=== PATIENT | male | born 1970 | race Caucasian/White ===

== ENCOUNTER → 2022-03-18 14:08 | Outpatient (BNVA) | payer MEDICARE, MEDICAID, SELFPAY | PROVIDERS: PCP Internal Medicine; Visit Provider Internal Medicine | DX: I42.8 Other cardiomyopathies (principal); I25.10 Atherosclerotic heart disease of native coronary artery without angina pectoris; I46.9 Cardiac arrest, cause unspecified | CPT/HCPCS: 99212 ==

== ENCOUNTER → 2022-03-28 10:06 | Outpatient (REF) | payer MEDICARE, MEDICAID, SELFPAY ==
--- NOTE | 2022-03-28 10:12 | CA_ITS ---
Transthoracic Echocardiogram Patient (Last, First, Middle): Daniel Agarwal A Gender: Male Date of : 1970 Age: 51 Procedure Date: 03/28/2022 Procedure Type: Transthoracic Echocardiogram Location: OP Height: 187.96 cm Weight: 99.34 kg BSA: 2.26 m2 Heart Rate: bpm BP: 110 / 72 mmHg Lead Bi Developer: TO Referring MD: Gunnar Tate MD Symptoms: I42.8 - Other cardiomyopathies Study Quality: Fair ECG Rhythm: Sinus Conclusions: - The left ventricular systolic function is moderately decreased. The visually estimated ejection fraction is between 35-40%. - No obvious valvular pathology seen on this study. Findings Left Ventricle Mildly increased left ventricular cavity size. There is normal left ventricular wall thickness. The left ventricular systolic function is moderately decreased. The visually estimated ejection fraction is between 35 40%. There is moderate global hypokinesis. Diastolic function is normal for age. Right Ventricle Normal right ventricular cavity size and systolic function. There is an ICD wire seen in the right ventricle. Atria Both atria are normal in size. Aortic Valve There is a normal trileaflet aortic valve. There is mild calcification of the aortic valve. There is no aortic valve stenosis. There is trace (trivial) aortic valve regurgitation. Mitral Valve The mitral valve appears normal. There is trace mitral valve regurgitation. There is no mitral valve stenosis. Pulmonic Valve The pulmonic valve is likely normal. Tricuspid Valve There is trace tricuspid valve regurgitation. There is no evidence of pulmonary hypertension. Great Vessels The asc aorta is normal in size. Venous The inferior vena cava is mildly dilated and collapses greater than 50% with inspiration. Pericardium/Pleural There is no evidence of pericardial effusion. Prior Study Comparison No significant change compared to prior study dated: 08/12/2019. Recommendations, Care & Conclusions No obvious valvular pathology seen on this study. Measurements 2D Linear Measurements IVSd: 0.66 0.6-0.9/0.6-1.0 cm LVIDd: 6.05 3.9-5.3/4.2-5.9 cm LVIDd Index: 2.68 2.4-3.2/2.2-3.1 cm/m2 LVIDs: 5.03 2.0-3.6 cm LVPWd: 0.63 0.7-1.1 cm LA Diam: 3.50 2.7-3.8/3.0-4.0 cm LAIDs Index: 1.55 1.5-2.3 cm/m2 LV Mass: 180.46 67-162/88-224 g LV Mass Index: 79.85 43-95/49-115 g/m2 LVOT Diam: 2.20 3.0+(-)1.3 cm 2D Systolic Function EF 4C: 44.00 >55% EF 2C: 35.60 >55% EF BiP: 39.90 >55% Mitral Valve MV Pk E: 0.57 MV PK A: 0.67 MV Decel Time: 192.00 E/A: 0.90 E'Lateral: 8.49 E'Medial: 6.64 E/E' Med: 8.60 E/E' Lat: 6.80 PHT: 56.00 MVA PHT: 3.93 Decel [place]: 3.00 Aortic Valve AoV Pk Prabhakar: 1.38 AoV Mn Prabhakar: 0.98 AoV VTI: 0.28 AoV Pk Grad: 8.00 Aov Mn Grad: 4.00 SERGEI Cont.VTI: 1.93 LVOT LVOT Pk Prabhakar: 0.71 LVOT Mn Prabhakar: 0.51 LVOT VTI: 0.14 LVOT Pk Grad: 2.00 LVOT Mn Grad: 1.00 LVOT Diam: 2.20 LVOT Area: 3.80 Diastolic Function MV Pk E: 0.57 MV Pk A: 0.67 E/A: 0.90 E'Medial: 6.64 E/E' Med: 8.60 E' Laterial: 8.49 E/E' Lat: 6.80 Right Ventricle TAPSE (mm): 18.40 TVS' Prabhakar: 9.36 Tricuspid Valve TR Pk Prabhakar: 2.08 TR Pk Grad: 17.00 RA Press: 8.00 RVSP: 25.00 Great Vessels Aorta Sinus of Valsalva: 3.29 2.0-3.5 cm Ao Asc: 3.10 2.1-3.4 cm Updated in Other Vendor System with Status of Final Gunnar Tate MD electronically signed on 03/29/2022 3:06:59 PM with status of Final
[2022-03-28 11:03] LABS: MANUAL DIFF FLAG NO
[2022-03-28 11:54] LABS: Basophils Absolute Auto 0.1 X10*3/uL (0.0-0.2); Basophils Percent Auto 0.3 % (0-2); Eosinophils Absolute Auto 0.1 X10*3/uL (0.0-0.4); Eosinophils Percent Auto 0.7 % (0-4); Hematocrit 44.9 % (42.0-52.0); Hemoglobin 15.2 g/dl (14.0-18.0); Imm Gran Abs Auto 0.08 X10*3/uL (0.00-0.03); Imm Gran Pct Auto 0.5 % (0.0-0.4); Lymphocytes Absolute Auto 2.5 X10*3/uL (1.2-4.9); Lymphocytes Percent Auto 14.3 % (20-40); Mean Corpuscular HGB Conc 33.9 g/dl (31.0-36.0); Mean Corpuscular Hemoglobin 31.3 pg (27.0-33.0); Mean Corpuscular Volume 92.4 fL (80.0-98.0); Monocytes Absolute Auto 0.9 X10*3/uL (0.1-1.2); Monocytes Percent Auto 5.1 % (2-11); Neutrophils Percent Auto 79.1 % (45-73); Platelet Count 190 X10*3/uL (160-400); Red Blood Count 4.86 X10*6/uL (4.60-5.80); Red Cell Distribution Width 12.5 % (11.0-16.0); White Blood Count 17.7 X10*3/uL (4.8-10.8)
[2022-03-28 12:43] LABS: B Type Natriuretic Peptide 24 pg/mL (<100)
[2022-03-28 12:51] LABS: Alanine Aminotransferase 18 U/L (0-40); Albumin Level 3.9 g/dL (3.5-5.0); Alkaline Phosphatase 57 U/L (39-117); Anion Gap 12 (12-20); Aspartate Amino Transferase 13 U/L (5-37); Bilirubin Direct 0.2 mg/dL (0.0-0.5); Blood Urea Nitrogen 21 mg/dL (9-16); Calcium 9.1 mg/dL (8.4-10.2); Carbon Dioxide 27 mmol/L (22-29); Chloride 106 mmol/L (96-108); Cholesterol 257 mg/dL; Estimated Glomerular Filt Rate > 60; Glucose Random 88 mg/dL (60-115); HDL Cholesterol 32 mg/dL; LDL Cholesterol Calculated 188 mg/dl; Potassium 3.8 mmol/L (3.3-5.1); Sodium 141 mmol/L (135-145); Total Protein 6.4 g/dL (6.5-8.0); Triglycerides 186 mg/dL
[2022-03-28 13:10] LABS: Prostate Specific Antigen 0.67 ng/mL (<0.05-4.0); TSH reflex Free T4 0.66 uIU/mL (0.32-4.0)
[2022-03-28 13:32] LABS: Folate 7.8 ng/mL (> or = 4.0); Vitamin B12 667 pg/mL (200-900)
== END ==
LOC: HO.CARD 10:06
PROVIDERS: Nurse Practitioner Family; Visit Provider Internal Medicine
DX: Z12.5 Encounter for screening for malignant neoplasm of prostate (principal); I42.8 Other cardiomyopathies; I25.10 Atherosclerotic heart disease of native coronary artery without angina pectoris; J44.9 Chronic obstructive pulmonary disease, unspecified; E78.5 Hyperlipidemia, unspecified; E55.9 Vitamin D deficiency, unspecified
CPT/HCPCS: 36415; 80048; 80061; 80076; 82306; 82607; 82746; 83880; 84153; 84443; 85025; 93306

== ENCOUNTER 2022-04-01 13:59 | Outpatient (REF) | payer MEDICARE, MEDICAID, SELFPAY ==
--- NOTE | ~2022-04-01 | XR_ITS ---
EXAMINATION: XR SHOULDER, RIGHT CLINICAL INFORMATION: Pain. COMPARISON: Radiographs dated 11/06/2011. TECHNIQUE: AP external rotation, Grashey, scapular Y, and axillary views of the right shoulder. FINDINGS: Bony alignment and mineralization are normal. The glenohumeral joint is intact and shows mild osteoarthritic change. The acromioclavicular and coracoclavicular intervals are normal. There is mild osteoarthritic change of the acromioclavicular joint. There is a small distal acromial undersurface osteophyte. There is cortical irregularity and subchondral sclerosis and cyst formation of the greater tuberosity of the proximal right humerus. No fracture or dislocation is seen. There is no abnormal soft tissue calcification or foreign body. No left pneumothorax is seen. A pacemaker lead is noted. XR/XR shoulder RT min 2V IMPRESSION: 1. There is mild osteoarthritic change of the right glenohumeral and acromioclavicular joints. 2. Findings are consistent with right rotator cuff impingement. No cristina calcific tendinitis is noted.
== END 2022-04-01 14:00 | disposition home or self-care (01) ==
LOC: HO.HOSX 13:59
PROVIDERS: Visit Provider Orthopaedic Surgery
DX: M25.511 Pain in right shoulder (principal); Z98.890 Other specified postprocedural states
CPT/HCPCS: 73030; 99202

== ENCOUNTER 2022-04-08 09:38 | Outpatient (REF) | payer MEDICARE, MEDICAID, SELFPAY ==
--- NOTE | ~2022-04-08 | XR_ITS ---
EXAMINATION: XR CHEST CLINICAL INFORMATION: COPD COMPARISON: CTA chest for PE 09/21/2018 TECHNIQUE: 2 views of the chest were obtained. FINDINGS: The lungs are hyperinflated but clear. Heart size and pulmonary vascularity is normal. There is solitary pacer electrode in right ventricle. No gross bony abnormality seen. XR/XR chest 2V IMPRESSION: Hyperinflated lungs without acute process.
== END 2022-04-08 09:39 | disposition home or self-care (01) ==
LOC: HO.XRAY 09:38
PROVIDERS: PCP Nurse Practitioner Family; Visit Provider Internal Medicine
DX: J44.1 Chronic obstructive pulmonary disease with (acute) exacerbation (principal); F17.200 Nicotine dependence, unspecified, uncomplicated; Z71.6 Tobacco abuse counseling
CPT/HCPCS: 71046; 99212

== ENCOUNTER 2022-04-10 10:12 | Outpatient (REF) | payer MEDICARE, MEDICAID, SELFPAY ==
--- NOTE | ~2022-04-10 | CT_ITS ---
EXAMINATION: CT HEAD WITHOUT CONTRAST CLINICAL INFORMATION: Skin anesthesia. COMPARISON: None available. TECHNIQUE: Contiguous axial imaging was performed from the skull base to vertex without intravenous administration of contrast. This CT examination was performed using dose optimization techniques as appropriate, variously including the following: *Automated exposure control. *Adjustment of mA and/or kV according to patient size (this includes techniques or standardized protocols for targeted exams where dose is matched to indication/reason for exam; i.e. extremities or head). *Use of iterative reconstruction technique. DLP: 811 mGy-cm FINDINGS: There is no evidence of acute intracranial hemorrhage or edematous territorial infarction. Kim-white matter differentiation is preserved. A few nonspecific foci of hypoattenuation in the periventricular and deep white matter. The ventricles are normal in morphology and size. No evidence for obstructive hydrocephalus. No abnormal mass effect or midline shift. No extra-axial fluid collections. Calcific atherosclerotic disease of the intracranial internal carotid arteries. No hyperdense vessel sign. No acute soft tissue or osseous abnormalities. Moderate mucosal thickening of the paranasal sinuses. Partially aerated fluid layering within the maxillary sinuses. The mastoid air cells and middle ear cavities are clear. CT/CT head/brain wo IV con IMPRESSION: 1. No evidence of acute intracranial hemorrhage or edematous territorial infarction. 2. Mild nonspecific white matter changes most commonly seen with mild microangiopathy. 3. Moderate sinonasal mucosal disease. Partially aerated fluid layering within the maxillary sinuses.
== END 2022-04-10 10:13 | disposition home or self-care (01) ==
LOC: HO.CT 10:12
PROVIDERS: PCP Nurse Practitioner Family; Visit Provider Nurse Practitioner Family
DX: R20.0 Anesthesia of skin (principal)
CPT/HCPCS: 70450

== ENCOUNTER 2022-04-25 10:39 | Outpatient (REF) | payer MEDICARE, MEDICAID, SELFPAY ==
--- NOTE | ~2022-04-25 | MR_ITS ---
EXAMINATION: MR SHOULDER WITHOUT CONTRAST, RIGHT CLINICAL INFORMATION: Right shoulder pain. History of rotator cuff repair COMPARISON: Radiographs 04/01/2022. MRI 04/30/2013. TECHNIQUE: MRI of the shoulder without contrast was performed on a high-field scanner. FINDINGS: ROTATOR CUFF: The surgically repaired supraspinatus tendon is markedly attenuated anteriorly, portions of which appear essentially absent, with foci of micrometallic artifact. Correlate with the surgical result. The rotator cuff appears otherwise intact. Mild supraspinatus muscle atrophy. BICEPS: Normal. CORACOACROMIAL ARCH: The undersurface of the acromion is post acromioplasty with no subacromial spur. Postsurgical and moderate degenerative changes at the acromioclavicular joint. LABRUM/CAPSULE: Normal. GLENOHUMERAL JOINT/MARROW: Degenerative cyst and spurring of the lesser tuberosity. Chronic cortical irregularity of the greater tuberosity anteriorly and small osteophytes along the glenoid rim. No significant joint effusion. MR/MR shoulder RT wo con IMPRESSION: 1. The surgically repaired supraspinatus tendon is markedly attenuated anteriorly, portions of which appear essentially absent, with foci of micrometallic artifact. Correlate with the surgical result. Mild muscle atrophy. The rotator cuff appears otherwise intact. 2. Moderate acromioclavicular and mild glenohumeral osteoarthritis.
== END 2022-04-25 10:40 | disposition home or self-care (01) ==
LOC: HO.MRI 10:39
PROVIDERS: Visit Provider Orthopaedic Surgery
DX: M25.511 Pain in right shoulder (principal); J44.9 Chronic obstructive pulmonary disease, unspecified; F17.200 Nicotine dependence, unspecified, uncomplicated; Z71.6 Tobacco abuse counseling
CPT/HCPCS: 73221; 99212

== ENCOUNTER → 2022-04-29 09:47 | Outpatient (BNVA) | payer MEDICARE, MEDICAID, SELFPAY | PROVIDERS: PCP Nurse Practitioner Family; Visit Provider Internal Medicine | DX: G89.29 Other chronic pain (principal); M96.1 Postlaminectomy syndrome, not elsewhere classified; F11.20 Opioid dependence, uncomplicated | CPT/HCPCS: 99202 ==

== ENCOUNTER 2022-05-13 10:04 | Outpatient (REF) | payer MEDICARE, MEDICAID, SELFPAY ==
--- NOTE | ~2022-05-13 | XR_ITS ---
EXAMINATION: XR CERVICAL SPINE XR THORACIC SPINE XR LUMBAR SPINE CLINICAL INFORMATION: Post laminectomy syndrome. COMPARISON: None available. TECHNIQUE: Cervical spine 4 views. Dorsal spine 2 views. Lumbar spine 5 views. FINDINGS: CERVICAL SPINE: There is normal cervical lordosis. There is a ventral plate and screws for fusion of C4 and C5 vertebrae and C5, C6 and C7 vertebrae. In addition, there are cerclage wires for posterior stabilization involving the C1 and C2 spinous processes. There is mild loss of the C2-C3 and C3-C4 disc heights with mild ventral spondylosis. No visible acute fracture, dislocation or subluxation is seen. The prevertebral and paravertebral soft tissues are normal. DORSAL SPINE: There is normal thoracic kyphosis. The vertebral heights, alignment and disc heights are normal. No fracture, lytic or sclerotic process is seen. The paravertebral soft tissues are normal. LUMBAR SPINE: There is maintained lumbar lordosis with disc prostheses at the L5-S1 and L3-L4 disc levels. In addition, there is posterior hardware for stabilization of the L3 and L4 vertebrae which appears unremarkable. Mild loss of the T12-L1, L1-L2 disc height. Mild ventral spondylosis is seen. There is no fracture or lytic process seen. There is a grade 1 anterolisthesis at L4-L5 stabilized with posterior bony bilateral fusion. Hyperdense L4-L5 disc is noted. XR/XR cervical spine 3V IMPRESSION: Ventral fusion from C4 through C7 vertebrae with ventral plating and screws. There are posterior cerclage wires stabilizing the C1 and C2 spinous processes. The hardware is intact. No fracture or lytic process is seen. There is ventral spondylosis. Unremarkable dorsal spine exam. L3-L4, L5-S1 disc prostheses and the L3-L4 posterior hardware is stable. Degenerative disc changes at the T12-L1 and L1-L2 disc levels with ventral spondylosis.
--- NOTE | ~2022-05-13 | XR_ITS ---
EXAMINATION: XR CERVICAL SPINE XR THORACIC SPINE XR LUMBAR SPINE CLINICAL INFORMATION: Post laminectomy syndrome. COMPARISON: None available. TECHNIQUE: Cervical spine 4 views. Dorsal spine 2 views. Lumbar spine 5 views. FINDINGS: CERVICAL SPINE: There is normal cervical lordosis. There is a ventral plate and screws for fusion of C4 and C5 vertebrae and C5, C6 and C7 vertebrae. In addition, there are cerclage wires for posterior stabilization involving the C1 and C2 spinous processes. There is mild loss of the C2-C3 and C3-C4 disc heights with mild ventral spondylosis. No visible acute fracture, dislocation or subluxation is seen. The prevertebral and paravertebral soft tissues are normal. DORSAL SPINE: There is normal thoracic kyphosis. The vertebral heights, alignment and disc heights are normal. No fracture, lytic or sclerotic process is seen. The paravertebral soft tissues are normal. LUMBAR SPINE: There is maintained lumbar lordosis with disc prostheses at the L5-S1 and L3-L4 disc levels. In addition, there is posterior hardware for stabilization of the L3 and L4 vertebrae which appears unremarkable. Mild loss of the T12-L1, L1-L2 disc height. Mild ventral spondylosis is seen. There is no fracture or lytic process seen. There is a grade 1 anterolisthesis at L4-L5 stabilized with posterior bony bilateral fusion. Hyperdense L4-L5 disc is noted. XR/XR lumbar spine 4V min IMPRESSION: Ventral fusion from C4 through C7 vertebrae with ventral plating and screws. There are posterior cerclage wires stabilizing the C1 and C2 spinous processes. The hardware is intact. No fracture or lytic process is seen. There is ventral spondylosis. Unremarkable dorsal spine exam. L3-L4, L5-S1 disc prostheses and the L3-L4 posterior hardware is stable. Degenerative disc changes at the T12-L1 and L1-L2 disc levels with ventral spondylosis.
--- NOTE | ~2022-05-13 | XR_ITS ---
EXAMINATION: XR CERVICAL SPINE XR THORACIC SPINE XR LUMBAR SPINE CLINICAL INFORMATION: Post laminectomy syndrome. COMPARISON: None available. TECHNIQUE: Cervical spine 4 views. Dorsal spine 2 views. Lumbar spine 5 views. FINDINGS: CERVICAL SPINE: There is normal cervical lordosis. There is a ventral plate and screws for fusion of C4 and C5 vertebrae and C5, C6 and C7 vertebrae. In addition, there are cerclage wires for posterior stabilization involving the C1 and C2 spinous processes. There is mild loss of the C2-C3 and C3-C4 disc heights with mild ventral spondylosis. No visible acute fracture, dislocation or subluxation is seen. The prevertebral and paravertebral soft tissues are normal. DORSAL SPINE: There is normal thoracic kyphosis. The vertebral heights, alignment and disc heights are normal. No fracture, lytic or sclerotic process is seen. The paravertebral soft tissues are normal. LUMBAR SPINE: There is maintained lumbar lordosis with disc prostheses at the L5-S1 and L3-L4 disc levels. In addition, there is posterior hardware for stabilization of the L3 and L4 vertebrae which appears unremarkable. Mild loss of the T12-L1, L1-L2 disc height. Mild ventral spondylosis is seen. There is no fracture or lytic process seen. There is a grade 1 anterolisthesis at L4-L5 stabilized with posterior bony bilateral fusion. Hyperdense L4-L5 disc is noted. XR/XR thoracic spine 2V IMPRESSION: Ventral fusion from C4 through C7 vertebrae with ventral plating and screws. There are posterior cerclage wires stabilizing the C1 and C2 spinous processes. The hardware is intact. No fracture or lytic process is seen. There is ventral spondylosis. Unremarkable dorsal spine exam. L3-L4, L5-S1 disc prostheses and the L3-L4 posterior hardware is stable. Degenerative disc changes at the T12-L1 and L1-L2 disc levels with ventral spondylosis.
== END 2022-05-13 10:05 | disposition home or self-care (01) ==
LOC: HO.XRAY 10:04
PROVIDERS: PCP Nurse Practitioner Family; Visit Provider Anesthesiology
DX: M96.1 Postlaminectomy syndrome, not elsewhere classified (principal)
CPT/HCPCS: 72040; 72070; 72110

== ENCOUNTER → 2022-05-20 10:00 | Outpatient (BNVA) | payer MEDICARE, MEDICAID, SELFPAY | PROVIDERS: PCP Nurse Practitioner Family; Visit Provider Anesthesiology | DX: M75.101 Unspecified rotator cuff tear or rupture of right shoulder, not specified as traumatic (principal); Z98.890 Other specified postprocedural states; M96.1 Postlaminectomy syndrome, not elsewhere classified; G89.4 Chronic pain syndrome | CPT/HCPCS: 99212 ==

== ENCOUNTER 2022-05-23 09:41 | Outpatient (REF) | payer MEDICARE, MEDICAID, SELFPAY ==
[2022-05-23 09:53] LABS: Hematocrit 45.2 % (42.0-52.0); Hemoglobin 15.1 g/dl (14.0-18.0); Mean Corpuscular HGB Conc 33.4 g/dl (31.0-36.0); Mean Corpuscular Hemoglobin 30.7 pg (27.0-33.0); Mean Corpuscular Volume 91.9 fL (80.0-98.0); Mean Platelet Volume 10.5 fL (9.4-12.4); Platelet Count 193 X10*3/uL (160-400); Red Blood Count 4.92 X10*6/uL (4.60-5.80); Red Cell Distribution Width 12.7 % (11.0-16.0)
[2022-05-23 10:01] LABS: Prothrombin Time 11.9 SEC (10.0-13.1)
[2022-05-23 11:26] LABS: Anion Gap 11 (12-20); Blood Urea Nitrogen 13 mg/dL (9-16); Calcium 9.2 mg/dL (8.4-10.2); Carbon Dioxide 29 mmol/L (22-29); Chloride 106 mmol/L (96-108); Estimated Glomerular Filt Rate > 60; Glucose Random 80 mg/dL (60-115); Potassium 4.3 mmol/L (3.3-5.1); Sodium 142 mmol/L (135-145)
[2022-05-23 11:30] LABS: TSH reflex Free T4 1.05 uIU/mL (0.32-4.0)
== END 2022-05-23 09:42 | disposition home or self-care (01) ==
LOC: HO.LAB 09:41
PROVIDERS: PCP Nurse Practitioner Family; Visit Provider Nurse Practitioner Family
DX: Z01.818 Encounter for other preprocedural examination (principal); J44.9 Chronic obstructive pulmonary disease, unspecified; R20.0 Anesthesia of skin; I25.10 Atherosclerotic heart disease of native coronary artery without angina pectoris
CPT/HCPCS: 36415; 80048; 84443; 85027; 85610

== ENCOUNTER → 2022-05-28 14:11 | Outpatient (BNVA) | payer MEDICARE, MEDICAID, SELFPAY | PROVIDERS: PCP Nurse Practitioner Family; Referring Provider Nurse Practitioner Family; Visit Provider Internal Medicine | DX: Z01.810 Encounter for preprocedural cardiovascular examination (principal); I42.8 Other cardiomyopathies; I25.10 Atherosclerotic heart disease of native coronary artery without angina pectoris; Z86.74 Personal history of sudden cardiac arrest; Z98.890 Other specified postprocedural states; Z95.810 Presence of automatic (implantable) cardiac defibrillator | CPT/HCPCS: 99212 ==

== ENCOUNTER 2022-06-06 14:49 | Outpatient (REF) | payer MEDICARE, MEDICAID, SELFPAY ==
--- NOTE | 2022-06-06 17:18 | PFT_ITS ---
FLOWS: 1. FEV1 72% of predicted at 3.13 L. 2. FVC 67% of predicted at 3.79 L. 3. FEV1 to FVC ratio of 0.83. 4. No bronchodilator response. LUNG VOLUMES: 1. Total lung capacity 76% of predicted at 5.94 L. 2. Residual volume 96% of predicted at 3.26 L. 3. Slow vital capacity 67% of predicted at 3.68 L. 4. Expiratory reserve volume 72% of predicted at 1.27 L. 5. Diffusion capacity is moderately decreased. IMPRESSION: Moderate restrictive ventilatory defect with no bronchodilator response. Decreased diffusion capacity and combination with restrictive ventilatory defect suggest underlying pulmonary parenchymal disease. Clinical correlation is advised. MD LINA Liang/MOD[facility] / [id number]
== END 2022-06-06 14:50 | disposition home or self-care (01) ==
LOC: HO.RESP 14:49
PROVIDERS: PCP Nurse Practitioner Family; Visit Provider Internal Medicine
DX: J44.1 Chronic obstructive pulmonary disease with (acute) exacerbation (principal); F17.200 Nicotine dependence, unspecified, uncomplicated
CPT/HCPCS: 94060; 94727; 94729

== ENCOUNTER → 2022-06-10 13:38 | Outpatient (BNVA) | payer MEDICARE, MEDICAID, SELFPAY | PROVIDERS: PCP Nurse Practitioner Family; Visit Provider Internal Medicine | DX: J44.9 Chronic obstructive pulmonary disease, unspecified (principal); J98.4 Other disorders of lung; F17.210 Nicotine dependence, cigarettes, uncomplicated | CPT/HCPCS: 99212 ==

== ENCOUNTER 2022-06-11 05:44 | Outpatient (REF) | payer MEDICARE, MEDICAID, SELFPAY ==
--- NOTE | ~2022-06-11 | FL_ITS ---
EXAMINATION: Lumbar spine CT without and with IV contrast CLINICAL INFORMATION: Worsening pain after epidural injection. Rule out hematoma. COMPARISON: Previous MR of the lumbar spine 2017, lumbar spine x-ray May 2022 and fluoroscopy exam 06/11/2022 TECHNIQUE: Sagittal and axial images through the lumbar spine with and without IV contrast. Patient received 85 mL Omnipaque 350 IV contrast. Sagittal and coronal reconstructions on the technologist workstation were performed. This CT examination was performed using dose optimization techniques as appropriate, variously including the following: *Automated exposure control *Adjustment of mA and/or kV according to patient size (this includes techniques or standardized protocols for targeted exams where dose is matched to indication/reason for exam; i.e. extremities or head) *Use of iterative reconstruction technique DLP 100 4 mg/cm FINDINGS: There is mild 3 mm anterior subluxation of L4 with respect L5. Bone alignment is otherwise normal. No fracture or dislocation. Posterior fusion hardware with posterior rods and interpedicular screws at L3-L4. There are intervertebral body disc interspacers at L3-L4 and L5-S1. There is severe degenerative disc disease and disc calcification at L4-L5. There are post laminectomy changes from L3 to L5. No epidural hematoma is seen. At T12-L1 there is mild bilateral disc bulge. No disc herniation. Spinal canal, lateral recesses and neural foramen are patent. There is mild right-sided facet arthritis. At L1-L2 there is diffuse disc bulge. No disc herniation. There is bilateral facet arthritis. There is mild spinal stenosis due to disc, short pedicles and facet arthritis. At L2-L3 there is no disc herniation protrusion or bulge. There is bilateral facet arthritis. There are postsurgical changes at L3-L4. There is artifact from orthopedic hardware. At L4-L5 there is disc calcification but no disc herniation protrusion or bulge. There is postlaminectomy change. There is bone graft material. There are postoperative changes to the posterior soft tissues. At L5-S1 there is artifact from vertebral disc spacer. No disc herniation. There are post laminectomy changes. There is bone graft material and postoperative changes to the overlying posterior soft tissues. Paraspinal soft tissues are unremarkable. There is atherosclerotic disease. There is a defect in the left iliac bone likely related to bone graft harvest site. FL/FL guidance in treatment room IMPRESSION: No epidural hematoma seen by CT. Evaluation of the L3-L4 level is significantly limited due to artifact surgical hardware.
== END 2022-06-11 05:45 | disposition home or self-care (01) ==
LOC: CF 05:44
PROVIDERS: Visit Provider Anesthesiology
DX: M96.1 Postlaminectomy syndrome, not elsewhere classified (principal); G89.4 Chronic pain syndrome
CPT/HCPCS: 62323; J1170; Q9965

== ENCOUNTER 2022-06-14 11:40 | Emergency (ER) | payer MEDICARE, MEDICAID, SELFPAY ==
--- NOTE | ~2022-06-14 | CT_ITS ---
EXAMINATION: Lumbar spine CT without and with IV contrast CLINICAL INFORMATION: Worsening pain after epidural injection. Rule out hematoma. COMPARISON: Previous MR of the lumbar spine 2017, lumbar spine x-ray May 2022 and fluoroscopy exam 06/11/2022 TECHNIQUE: Sagittal and axial images through the lumbar spine with and without IV contrast. Patient received 85 mL Omnipaque 350 IV contrast. Sagittal and coronal reconstructions on the technologist workstation were performed. This CT examination was performed using dose optimization techniques as appropriate, variously including the following: *Automated exposure control *Adjustment of mA and/or kV according to patient size (this includes techniques or standardized protocols for targeted exams where dose is matched to indication/reason for exam; i.e. extremities or head) *Use of iterative reconstruction technique DLP 100 4 mg/cm FINDINGS: There is mild 3 mm anterior subluxation of L4 with respect L5. Bone alignment is otherwise normal. No fracture or dislocation. Posterior fusion hardware with posterior rods and interpedicular screws at L3-L4. There are intervertebral body disc interspacers at L3-L4 and L5-S1. There is severe degenerative disc disease and disc calcification at L4-L5. There are post laminectomy changes from L3 to L5. No epidural hematoma is seen. At T12-L1 there is mild bilateral disc bulge. No disc herniation. Spinal canal, lateral recesses and neural foramen are patent. There is mild right-sided facet arthritis. At L1-L2 there is diffuse disc bulge. No disc herniation. There is bilateral facet arthritis. There is mild spinal stenosis due to disc, short pedicles and facet arthritis. At L2-L3 there is no disc herniation protrusion or bulge. There is bilateral facet arthritis. There are postsurgical changes at L3-L4. There is artifact from orthopedic hardware. At L4-L5 there is disc calcification but no disc herniation protrusion or bulge. There is postlaminectomy change. There is bone graft material. There are postoperative changes to the posterior soft tissues. At L5-S1 there is artifact from vertebral disc spacer. No disc herniation. There are post laminectomy changes. There is bone graft material and postoperative changes to the overlying posterior soft tissues. Paraspinal soft tissues are unremarkable. There is atherosclerotic disease. There is a defect in the left iliac bone likely related to bone graft harvest site. CT/CT lumbar spine wo/w IV con IMPRESSION: No epidural hematoma seen by CT. Evaluation of the L3-L4 level is significantly limited due to artifact surgical hardware.
[2022-06-14 11:46] VITALS: BP 100/82; PULSE 93; RESP 18; TEMP 36.9; O2SAT 97; BMI 28.0
--- NOTE | 2022-06-14 11:46 | ED.GENADULT ---
HPI - General Adult General Chief complaint: Back Pain/Injury <VISHNU Henao - Last Filed: 06/14/22 12:52> Stated complaint: Pain S/P Procedure 06/11/22 <VISHNU Henao - Last Filed: 06/14/22 12:52> Time Seen by Provider: 06/14/22 12:12 <VISHNU Henao - Last Filed: 06/14/22 12:52> History of Present Illness HPI narrative: Patient complains of increasing painful back after getting an epidural pain shot from pain management 4 days ago, it did not hurt for the 1st 24 hours then gradually worsened over the last 2 days and comes today saying he is having severe pain in the back but denies any new weakness no new loss of sensation no change to bowel or bladder no fever, denies any rash or swelling, no chest pain no shortness of breath <VISHNU Weller - Last Filed: 06/15/22 20:52> Related Data Home medications: Home Medications Medication Instructions Recorded Confirmed aspirin 81 mg tablet,delayed 81 mg PO DAILY 02/12/22 05/28/22 release (Adult Low Dose Aspirin) nitroglycerin 0.4 mg sublingual 0.4 mg sublingual Q5M PRN 03/18/22 05/28/22 tablet albuterol sulfate 90 mcg/actuation 2 puff inhalation Q4-6H PRN 03/26/22 05/28/22 aerosol inhaler (Ventolin HFA) Previous Rx's Medication Instructions Recorded tamsulosin 0.4 mg capsule (Flomax) 0.4 mg PO DAILY #90 caps 03/28/22 atorvastatin 80 mg tablet 80 mg PO DAILY #90 tabs 04/01/22 carvedilol 3.125 mg tablet 3.125 mg PO BID 90 days #180 tabs 04/01/22 lisinopril 5 mg tablet 5 mg PO DAILY #90 tabs 04/01/22 spironolactone 25 mg tablet 25 mg PO DAILY #90 tabs 04/01/22 cholecalciferol (vitamin D3) 50 50 mcg PO DAILY #90 tabs 04/03/22 mcg (2,000 unit) tablet albuterol sulfate 90 mcg/actuation 2 puff inhalation Q4-6H PRN 04/08/22 aerosol inhaler shortness of breath or wheezing 30 days #8.5 grams naloxone 4 mg/actuation nasal spray 4 mg intranasal Q3M PRN opioid 06/11/22 overdose 1 day #2 ea cyclobenzaprine 10 mg tablet 10 mg PO TID PRN muscle spasm #10 06/14/22 tabs oxycodone 5 mg tablet 5 mg PO Q6H PRN pain #20 tabs 06/14/22 <VISHNU Henao - Last Filed: 06/14/22 12:52> Allergies/adverse reactions: Allergies Allergy/AdvReac Type Severity Reaction Status Date / Time bupropion [From Wellbutrin] Allergy Mild Hives, Rage Verified 06/11/22 09:06 codeine [Codeine] Allergy Mild HIVES/ITCHI Verified 06/11/22 09:06 NG methadone [Methadone] Allergy Mild HIVES/ITCHI Verified 06/11/22 09:06 NG barium sulfate Allergy Unknown Unknown Verified 06/11/22 09:06 varenicline [From Chantix] Allergy Unknown Agitation, Verified 06/11/22 09:06 Aggression Black Pepper-Turmeric Allergy Unknown Unknown Uncoded 06/10/22 13:54 Codeine Phosphate Allergy Unknown Unknown Uncoded 06/10/22 13:54 Codeine Sulfate Allergy Unknown Unknown Uncoded 06/10/22 13:54 <VISHNU Henao - Last Filed: 06/14/22 12:52> REPLACED BY [facility] Past Medical History Source: nursing notes reviewed <VISHNU Weller - Last Filed: 06/15/22 20:52> Medical History: Medical History (Updated 06/15/22 @ 00:04 by Wily Boyd) Atherosclerotic cardiovascular disease Cardiac arrest Cardiac defibrillator in place COPD with exacerbation History of TIA (transient ischemic attack) MRSA infection Pacemaker Restrictive lung disease Rotator cuff arthropathy of both shoulders Smoker Uncomplicated opioid dependence <VISHNU Henao - Last Filed: 06/14/22 12:52> Surgical History: Surgical History History of back surgery History of cholecystectomy History of repair of right rotator cuff (~05/27/13) Status post subacromial decompression (~10/30/17) <VISHNU Henao - Last Filed: 06/14/22 12:52> Family History Family History: Family History Mother Multiple sclerosis Father Diabetes Amputat leg, bilat-complicated Sister Lupus <VISHNU Henao Last Filed: 06/14/22 12:52> Social History Social History: Social History Alcohol intake: former Year quit: 2016 Patient Tobacco Use Status: Current everyday Tobacco user Tobacco use type: Cigarette Cigarettes Per Day: 2 e-Cigarette/Vaping Use: Currently Using Advance Directives: No Cognitive needs: No Hearing needs: No Vision needs: No <VISHNU Henao Last Filed: 06/14/22 12:52> Physical Exam ED Vital Signs: Vital Signs - 24 hr 06/14/22 11:46 Temperature 98.4 F Pulse Rate 93 Respiratory Rate 18 Blood Pressure 100/82 Pulse Oximetry 97 Oxygen Delivery Method Room Air BMI result Body Mass Index 28.0 <VISHNU Henao Last Filed: 06/14/22 12:52> Vital Signs - 24 hr 06/14/22 11:46 Temperature 98.4 F Pulse Rate 93 Respiratory Rate 18 Blood Pressure 100/82 Pulse Oximetry 97 Oxygen Delivery Method Room Air BMI result Body Mass Index 28.0 <VISHNU Weller Last Filed: 06/15/22 20:52> General appearance uncomfortable med no acute distress Head is normocephalic atraumatic Neck is supple Respiratory no distress Chest wall nontender Abdomen soft nontender The back had lower lumbar paraspinal tenderness, there was no redness warmth or rash on the skin of the back no changes to skin of the back there was no swelling, no fluctuance no wound Extremities will for range of motion x4 Neuro motor was 5/5 x4 with sensation intact and symmetrical in distal lower extremities <VISHNU Weller Last Filed: 06/15/22 20:52> Course Course Course Narrative: RME performed by Chery Storey PA-C. Patient is a 51 year old assigned male at presenting to the emergency department with back pain. Patient states that he is seen by our pain clinic and was trialling dilaudid into his spine on 06/10/2022. Patient states that once it wore off, he began to have back pain and now has unbearable pain. Labs ordered. Patient placed back in the waiting room pending room availability and results. <VISHNU Henao - Last Filed: 06/14/22 12:52> RME performed by Chery Storey PA-C. Patient is a 51 year old assigned male at presenting to the emergency department with back pain. Patient states that he is seen by our pain clinic and was trialling dilaudid into his spine on 06/10/2022. Patient states that once it wore off, he began to have back pain and now has unbearable pain. Labs ordered. Patient placed back in the waiting room pending room availability and results. Patient with worsening back pain after a spinal injection that was done 4 days ago, patient had no pain for the 1st 24 hours and then developed worsening pain over the next 2 days and comes here with severe pain, no no weakness no loss of sensation no change to bowel or bladder no fever Dr. abreu from pain management did call in reference to this patient and said given the time frame of about 3 days he is concerned about expanding hematoma and recommended CT scanning to evaluate for this CT scanning did not show any hematoma no acute finding and patient was discharged with analgesics to follow with pain management He is given warnings to return for any weakness in the leg any fever, any redness or warmth to the back any signs of infection any worse condition <VISHNU Weller - Last Filed: 06/15/22 20:52> Medications Administered Discontinued Medications Generic Name Dose Route Start Last Admin Trade Name Kenia PRN Reason Stop Dose Admin Hydromorphone HCl 1 mg 06/14/22 12:29 06/14/22 12:40 Hydromorphone Hcl 1 Mg/Ml Syringe IM 06/14/22 12:30 1 mg ONCE ONE Administration Protocol Hydromorphone HCl 0.5 mg 06/14/22 13:17 06/14/22 13:34 Hydromorphone Hcl 0.5 Mg/0.5 Ml Syringe IM 06/14/22 13:18 0.5 mg ONCE ONE Administration Protocol Iohexol 85 ml 06/14/22 14:25 06/14/22 14:25 Iohexol 350 Mg/Ml 75 Ml Infus..Btl IV 06/14/22 14:26 85 ml ONCE ONE Administration Oxycodone HCl 10 mg 06/14/22 15:56 06/14/22 16:13 Oxycodone Hcl Immed Release 5 Mg Tablet PO 06/14/22 15:57 10 mg ONCE ONE Administration <VISHNU Henao - Last Filed: 06/14/22 12:52> Medications Administered Discontinued Medications Generic Name Dose Route Start Last Admin Trade Name Kenia PRN Reason Stop Dose Admin Hydromorphone HCl 1 mg 06/14/22 12:29 06/14/22 12:40 Hydromorphone Hcl 1 Mg/Ml Syringe IM 06/14/22 12:30 1 mg ONCE ONE Administration Protocol Hydromorphone HCl 0.5 mg 06/14/22 13:17 06/14/22 13:34 Hydromorphone Hcl 0.5 Mg/0.5 Ml Syringe IM 06/14/22 13:18 0.5 mg ONCE ONE Administration Protocol Iohexol 85 ml 06/14/22 14:25 06/14/22 14:25 Iohexol 350 Mg/Ml 75 Ml Infus..Btl IV 06/14/22 14:26 85 ml ONCE ONE Administration Oxycodone HCl 10 mg 06/14/22 15:56 06/14/22 16:13 Oxycodone Hcl Immed Release 5 Mg Tablet PO 06/14/22 15:57 10 mg ONCE ONE Administration <VISHNU Weller - Last Filed: 06/15/22 20:52> Medical Decision Making Lab Data Result Diagrams: 06/14/22 11:59 06/14/22 11:59 <VISHNU Henao - Last Filed: 06/14/22 12:52> Labs: Lab Results 06/14/22 06/14/22 Range/Units 11:59 11:59 WBC 9.4 (4.8-10.8) X10*3/uL RBC 4.89 (4.60-5.80) X10*6/uL Hgb 15.2 (14.0-18.0) g/dl Hct 44.2 (42.0-52.0) % MCV 90.4 (80.0-98.0) fL MCH 31.1 (27.0-33.0) pg MCHC 34.4 (31.0-36.0) g/dl RDW 12.5 (11.0-16.0) % Plt Count 166 (160-400) X10*3/uL MPV 10.4 (9.4-12.4) fL Immature Gran % (Auto) 0.3 (0.0-0.4) % Neut % (Auto) 59.3 (45-73) % Lymph % (Auto) 28.8 (20-40) % Sutton % (Auto) 7.7 (2-11) % Eos % (Auto) 3.0 (0-4) % Baso % (Auto) 0.9 (0-2) % Lymph # (Auto) 2.7 (1.2-4.9) X10*3/uL Sutton # (Auto) 0.7 (0.1-1.2) X10*3/uL Eos # (Auto) 0.3 (0.0-0.4) X10*3/uL Baso # (Auto) 0.1 (0.0-0.2) X10*3/uL Abs Immat Gran (auto) 0.03 (0.00-0.03) X10*3/uL Absolute Neuts (auto) 5.6 (2.0-8.3) x10*3/uL Absolute Nucleated RBC 0.000 (0.0-0.012) X10*3/uL Nucleated RBC % (auto) 0.0 (0.0-0.2) /100WBC Sodium 140 (135-145) mmol/L Potassium 4.2 (3.3-5.1) mmol/L Chloride 109 H (96-108) mmol/L Carbon Dioxide 22 (22-29) mmol/L Anion Gap 13 (12-20) BUN 16 (9-16) mg/dL Creatinine 0.86 (0.5-1.4) mg/dL Estim Creat Clear Calc 125.1 Estimated GFR > 60 Random Glucose 132 H (60-115) mg/dL Calcium 8.6 D (8.4-10.2) mg/dL Magnesium 2.0 (1.6-2.6) mg/dL Total Bilirubin 0.6 (0.0-1.0) mg/dL AST 11 (5-37) U/L ALT 19 (0-40) U/L Alkaline Phosphatase 68 (39-117) U/L Total Protein 5.9 L (6.5-8.0) g/dL Albumin 3.8 (3.5-5.0) g/dL <VIHSNU Henao - Last Filed: 06/14/22 12:52> Lab Results 06/14/22 06/14/22 Range/Units 11:59 11:59 WBC 9.4 (4.8-10.8) X10*3/uL RBC 4.89 (4.60-5.80) X10*6/uL Hgb 15.2 (14.0-18.0) g/dl Hct 44.2 (42.0-52.0) % MCV 90.4 (80.0-98.0) fL MCH 31.1 (27.0-33.0) pg MCHC 34.4 (31.0-36.0) g/dl RDW 12.5 (11.0-16.0) % Plt Count 166 (160-400) X10*3/uL MPV 10.4 (9.4-12.4) fL Immature Gran % (Auto) 0.3 (0.0-0.4) % Neut % (Auto) 59.3 (45-73) % Lymph % (Auto) 28.8 (20-40) % Sutton % (Auto) 7.7 (2-11) % Eos % (Auto) 3.0 (0-4) % Baso % (Auto) 0.9 (0-2) % Lymph # (Auto) 2.7 (1.2-4.9) X10*3/uL Sutton # (Auto) 0.7 (0.1-1.2) X10*3/uL Eos # (Auto) 0.3 (0.0-0.4) X10*3/uL Baso # (Auto) 0.1 (0.0-0.2) X10*3/uL Abs Immat Gran (auto) 0.03 (0.00-0.03) X10*3/uL Absolute Neuts (auto) 5.6 (2.0-8.3) x10*3/uL Absolute Nucleated RBC 0.000 (0.0-0.012) X10*3/uL Nucleated RBC % (auto) 0.0 (0.0-0.2) /100WBC Sodium 140 (135-145) mmol/L Potassium 4.2 (3.3-5.1) mmol/L Chloride 109 H (96-108) mmol/L Carbon Dioxide 22 (22-29) mmol/L Anion Gap 13 (12-20) BUN 16 (9-16) mg/dL Creatinine 0.86 (0.5-1.4) mg/dL Estim Creat Clear Calc 125.1 Estimated GFR > 60 Random Glucose 132 H (60-115) mg/dL Calcium 8.6 D (8.4-10.2) mg/dL Magnesium 2.0 (1.6-2.6) mg/dL Total Bilirubin 0.6 (0.0-1.0) mg/dL AST 11 (5-37) U/L ALT 19 (0-40) U/L Alkaline Phosphatase 68 (39-117) U/L Total Protein 5.9 L (6.5-8.0) g/dL Albumin 3.8 (3.5-5.0) g/dL <VISHNU Weller - Last Filed: 06/15/22 20:52> Discharge Plan Discharge Clinical Impression: Back pain <VISHNU Henao - Last Filed: 06/14/22 12:52> Patient Disposition: Home, Self-Care <VISHNU Henao - Last Filed: 06/14/22 12:52> Additional Instructions: CT scan did not show any expanding hematoma, no signs of infection no worrisome findings On exam there was no redness or signs of infection in the area of your injection On exam there was no new weakness, no fever Return to the ER any time should you develop a fever, redness or swelling around the injection site, weakness in any limb loss of sensation, change to bowel and bladder habits any worse condition or any concerns Follow with your doctor next week You were given dilaudid in the emergency room for severe pain, your also prescribed oxycodone 20 tablets for several days of pain treatment <VISHNU Henao - Last Filed: 06/14/22 12:52> Prescriptions: New oxycodone 5 mg tablet 5 mg PO Q6H PRN (Reason: pain) Qty: 20 0RF Rx Instructions: Partial Fill upon patient request. cyclobenzaprine 10 mg tablet 10 mg PO TID PRN (Reason: muscle spasm) Qty: 10 0RF No Action aspirin [Adult Low Dose Aspirin] 81 mg tablet,delayed release (DR/EC) 81 mg PO DAILY tamsulosin [Flomax] 0.4 mg capsule 0.4 mg PO DAILY Qty: 90 0RF lisinopril 5 mg tablet 5 mg PO DAILY Qty: 90 3RF spironolactone 25 mg tablet 25 mg PO DAILY Qty: 90 3RF atorvastatin 80 mg tablet 80 mg PO DAILY Qty: 90 3RF Rx Instructions: Increase in dose carvedilol 3.125 mg tablet 3.125 mg PO BID 90 Days Qty: 180 0RF Rx Instructions: must administer with a meal/food Replaces metoprolol RX cholecalciferol (vitamin D3) 50 mcg (2,000 unit) tablet 50 mcg PO DAILY Qty: 90 0RF albuterol sulfate 90 mcg/actuation HFA aerosol inhaler 2 puff inhalation Q4-6H PRN (Reason: shortness of breath or wheezing) 30 Days Qty: 8.5 3RF albuterol sulfate [Ventolin HFA] 90 mcg/actuation HFA aerosol inhaler 2 puff inhalation Q4-6H PRN nitroglycerin 0.4 mg tablet, sublingual 0.4 mg sublingual Q5M PRN Rx Instructions: do not exceed 3 doses per episode naloxone 4 mg/actuation spray,non-aerosol 4 mg intranasal Q3M PRN (Reason: opioid overdose) 1 Days Qty: 2 3RF Rx Instructions: spray 1 dose into ONE nostril; alternate nostrils w each dose. May repeat with more refills if symptoms persisted. <VISHNU Henao - Last Filed: 06/14/22 12:52> Interventions: ED Discharge Assessment Last Done: 06/14/22 16:17 <VISHNU Henao - Last Filed: 06/14/22 12:52> Discharge Date/Time: 06/14/22 16:18 <VISHNU Henao - Last Filed: 06/14/22 12:52>
[2022-06-14 12:03] LABS: MANUAL DIFF FLAG NO
[2022-06-14 12:09] LABS: Basophils Absolute Auto 0.1 X10*3/uL (0.0-0.2); Basophils Percent Auto 0.9 % (0-2); Eosinophils Absolute Auto 0.3 X10*3/uL (0.0-0.4); Hematocrit 44.2 % (42.0-52.0); Hemoglobin 15.2 g/dl (14.0-18.0); Imm Gran Abs Auto 0.03 X10*3/uL (0.00-0.03); Imm Gran Pct Auto 0.3 % (0.0-0.4); Lymphocytes Absolute Auto 2.7 X10*3/uL (1.2-4.9); Lymphocytes Percent Auto 28.8 % (20-40); Mean Corpuscular HGB Conc 34.4 g/dl (31.0-36.0); Mean Corpuscular Hemoglobin 31.1 pg (27.0-33.0); Mean Corpuscular Volume 90.4 fL (80.0-98.0); Mean Platelet Volume 10.4 fL (9.4-12.4); Monocytes Absolute Auto 0.7 X10*3/uL (0.1-1.2); Monocytes Percent Auto 7.7 % (2-11); Neutrophils Absolute Auto 5.6 x10*3/uL (2.0-8.3); Neutrophils Percent Auto 59.3 % (45-73); Platelet Count 166 X10*3/uL (160-400); Red Blood Count 4.89 X10*6/uL (4.60-5.80); Red Cell Distribution Width 12.5 % (11.0-16.0); White Blood Count 9.4 X10*3/uL (4.8-10.8)
[2022-06-14 12:27] LABS: Alanine Aminotransferase 19 U/L (0-40); Albumin Level 3.8 g/dL (3.5-5.0); Alkaline Phosphatase 68 U/L (39-117); Anion Gap 13 (12-20); Aspartate Amino Transferase 11 U/L (5-37); Bilirubin Total 0.6 mg/dL (0.0-1.0); Blood Urea Nitrogen 16 mg/dL (9-16); Calcium 8.6 mg/dL (8.4-10.2); Carbon Dioxide 22 mmol/L (22-29); Chloride 109 mmol/L (96-108); Creatinine Clr Calc Pharmacy 125.1; Estimated Glomerular Filt Rate > 60; Glucose Random 132 mg/dL (60-115); Potassium 4.2 mmol/L (3.3-5.1); Sodium 140 mmol/L (135-145); Total Protein 5.9 g/dL (6.5-8.0)
[2022-06-14] MEDS: HYDROmorphone HCl 1 MG/ML SYRINGE IM (12:40)
[2022-06-14] MEDS: HYDROmorphone HCl 0.5 MG/0.5 ML SYRINGE IM (13:34)
[2022-06-14] MEDS: iohexoL 350 MG/ML 75 ML INFUS..BTL 85 ML IV (14:25)
[2022-06-14] MEDS: oxyCODONE HCl Immed Release 5 MG TABLET 10 MG PO (16:13)
== END 2022-06-14 16:18 | disposition home or self-care (01) ==
PROVIDERS: Physician Assistant Medical; Emergency Provider Emergency Medicine; PCP Nurse Practitioner Family
DX: G97.1 Other reaction to spinal and lumbar puncture (principal); M54.50 Low back pain, unspecified; Z98.890 Other specified postprocedural states; F17.210 Nicotine dependence, cigarettes, uncomplicated; Z86.73 Personal history of transient ischemic attack (TIA), and cerebral infarction without residual deficits; Z86.14 Personal history of Methicillin resistant Staphylococcus aureus infection; Z95.0 Presence of cardiac pacemaker; Z79.82 Long term (current) use of aspirin; Z79.899 Other long term (current) drug therapy; Z79.02 Long term (current) use of antithrombotics/antiplatelets
CPT/HCPCS: 36415; 72133; 80053; 83735; 85025; 96372; 99283; 99284; J1170; Q9967

== ENCOUNTER → 2022-06-19 13:16 | Outpatient (BNVA) | payer MEDICARE, MEDICAID, SELFPAY | PROVIDERS: PCP Nurse Practitioner Family; Visit Provider Anesthesiology | DX: M96.1 Postlaminectomy syndrome, not elsewhere classified (principal); G89.4 Chronic pain syndrome; Z79.891 Long term (current) use of opiate analgesic | CPT/HCPCS: 99212 ==

== ENCOUNTER 2022-06-28 07:57 | Day surgery (SDC) | payer MEDICARE, MEDICAID, SELFPAY ==
[2022-06-26 08:53] VITALS: BMI 28.0
--- NOTE | 2022-06-26 11:01 | HO.ANESPROP2 ---
Documented by User: Анна Chen NP 06/26/22 11:10 HPI - Anesthesia Eval Consult details Narrative: 51yo M for Spinal Cord Stimulation Trial,thoracic placement ICD in situ (inserted s/p cardiac arrest 2019) Cardiac eval 05/2022 - CAD, NICMP, Hx cardiac arrest - stable, cleared for upcoming shoulder surgery Pulmo eval 06/2022 - COPD - stable PMFSH Active Problems Active Problems: All Active Problems (Updated 06/15/22 @ 00:04 by Background Daemon) Nonischemic cardiomyopathy (Acute) Cigarette nicotine dependence (Acute) COPD (chronic obstructive pulmonary disease) (Acute) Right shoulder pain (Acute) Screening for prostate cancer (Acute) Chronic pain syndrome (Acute) Failed back syndrome, cervical (Acute) Failed back syndrome, lumbar (Acute) BPH w/o urinary obs/LUTS (Acute) Left facial numbness (Acute) Right shoulder pain (Acute) History of repair of right rotator cuff (Acute) Low vitamin D level (Acute) Hyperlipidemia (Acute) Leukocytosis (Acute) Cough (Acute) Postlaminectomy syndrome, cervical (Acute) Postlaminectomy syndrome (Acute) Postlaminectomy syndrome of lumbar region (Acute) Right rotator cuff tear (Acute) Chronic pain syndrome (Acute) Preoperative clearance (Acute) Preoperative cardiovascular examination (Acute) Restrictive lung disease (Acute) Smoker (Acute) COPD with exacerbation (Acute) Cardiac arrest (Acute) Atherosclerotic cardiovascular disease (Acute) Past Medical History Medical History (Updated 06/15/22 @ 00:04 by Background Darosmery) Atherosclerotic cardiovascular disease Cardiac arrest Cardiac defibrillator in place COPD with exacerbation History of TIA (transient ischemic attack) MRSA infection Pacemaker Restrictive lung disease Rotator cuff arthropathy of both shoulders Smoker Uncomplicated opioid dependence Family History Family History Mother Multiple sclerosis Father Diabetes Amputat leg, bilat-complicated Sister Lupus Surgical History Surgical History (Updated 06/26/22 @ 08:52 by Citlaly Vargas RN) History of back surgery History of cholecystectomy History of repair of right rotator cuff (~05/27/13) Hx of cardiac catheterization Status post subacromial decompression (~10/30/17) Social History Social History Alcohol intake: former Year quit: 2016 Patient Tobacco Use Status: Current everyday Tobacco user Tobacco use type: Cigarette Cigarettes Per Day: 2 e-Cigarette/Vaping Use: Currently Using Advance Directives: No Advance Directives Information Provided: Yes Cognitive needs: No Hearing needs: No Vision needs: No Meds Allergies Allergy/AdvReac Type Severity Reaction Status Date / Time bupropion [From Wellbutrin] Allergy Intermediate Hives, Rage Verified 06/25/22 14:50 varenicline [From Chantix] Allergy Intermediate Agitation, Verified 06/25/22 14:50 Aggression codeine [Codeine] Allergy Mild HIVES/ITCHI Verified 06/19/22 13:38 NG methadone [Methadone] Allergy Mild HIVES/ITCHI Verified 06/19/22 13:38 NG barium sulfate Allergy Unknown Unknown Verified 06/19/22 13:38 Black Pepper-Turmeric Allergy Unknown Unknown Uncoded 06/19/22 13:38 Home Medications Medication Instructions Recorded Confirmed Last Taken Type aspirin 81 mg tablet,delayed 81 mg PO DAILY 02/12/22 06/26/22 Unknown History release (Adult Low Dose Aspirin) nitroglycerin 0.4 mg sublingual 0.4 mg sublingual Q5M PRN Chest 03/18/22 06/26/22 Unknown History tablet Pain albuterol sulfate 90 mcg/actuation 2 puff inhalation Q4-6H PRN 03/26/22 06/26/22 Unknown History aerosol inhaler (Ventolin HFA) Wheezing Exam Exam Date and Time: June 26, 2022 1101 Height,Weight and Vital Signs: Height 6 ft 2 in Weight 98.883 kg Narrative Narrative: ECHO 03/2022 Conclusions: - The left ventricular systolic function is moderately decreased. The visually estimated ejection fraction is between 35-40%.? ? ? - No obvious valvular pathology seen on this study.? EKG 05/2022 SR @ 85 LAD ? septal infarct QS in V1 V2 slight IV conduction delay Cardiac catheterization 2021 normal left main; LAD 40-50% ostial stenosis; RCA 30-40% stenosis in the proximal part of PLV; otherwise unremarkable.? Cardiac Device Check Details: Date of service 05/02/2022;?Battery life 12 years; normal lead parameters; no treated VT/VF; ; normal ICD function. PFT 06/2022 FLOWS:? 1. FEV1 72% of predicted at 3.13 L. 2. FVC 67% of predicted at 3.79 L. 3. FEV1 to FVC ratio of 0.83. 4. No bronchodilator response. ?? LUNG VOLUMES:? 1. Total lung capacity 76% of predicted at 5.94 L. 2. Residual volume 96% of predicted at 3.26 L. 3. Slow vital capacity 67% of predicted at 3.68 L. 4. Expiratory reserve volume 72% of predicted at 1.27 L. 5. Diffusion capacity is moderately decreased. ?? IMPRESSION:? Moderate restrictive ventilatory defect with no bronchodilator response. Decreased diffusion capacity and combination with restrictive ventilatory defect suggest underlying pulmonary parenchymal disease.? Clinical correlation is advised. Assessment and Plan Assessment Anesthesia Assessment: Chart Reviewed Documented by User: Manav Christy MD 06/28/22 08:38 [facility] Past Medical History Medical History (Updated 06/15/22 @ 00:04 by Wily Boyd) Atherosclerotic cardiovascular disease Cardiac arrest Cardiac defibrillator in place COPD with exacerbation History of TIA (transient ischemic attack) MRSA infection Pacemaker Restrictive lung disease Rotator cuff arthropathy of both shoulders Smoker Uncomplicated opioid dependence Family History Family History Mother Multiple sclerosis Father Diabetes Amputat leg, bilat-complicated Sister Lupus Family history of problems with anesthesia: No Surgical History Surgical History (Updated 06/26/22 @ 08:52 by Citlaly Vargas RN) History of back surgery History of cholecystectomy History of repair of right rotator cuff (~05/27/13) Hx of cardiac catheterization Status post subacromial decompression (~10/30/17) History of Problems with Anesthesia: No Social History Social History Alcohol intake: former Year quit: 2016 Patient Tobacco Use Status: Current everyday Tobacco user Tobacco use type: Cigarette Cigarettes Per Day: 2 e-Cigarette/Vaping Use: Currently Using Advance Directives: No Advance Directives Information Provided: Yes Cognitive needs: No Hearing needs: No Vision needs: No Meds Allergies Allergy/AdvReac Type Severity Reaction Status Date / Time bupropion [From Wellbutrin] Allergy Intermediate Hives, Rage Verified 06/25/22 14:50 varenicline [From Chantix] Allergy Intermediate Agitation, Verified 06/25/22 14:50 Aggression codeine [Codeine] Allergy Mild HIVES/ITCHI Verified 06/19/22 13:38 NG methadone [Methadone] Allergy Mild HIVES/ITCHI Verified 06/19/22 13:38 NG barium sulfate Allergy Unknown Unknown Verified 06/19/22 13:38 Black Pepper-Turmeric Allergy Unknown Unknown Uncoded 06/19/22 13:38 Home Medications Medication Instructions Recorded Confirmed Last Taken Type aspirin 81 mg tablet,delayed 81 mg PO DAILY 02/12/22 06/26/22 Unknown History release (Adult Low Dose Aspirin) nitroglycerin 0.4 mg sublingual 0.4 mg sublingual Q5M PRN Chest 03/18/22 06/26/22 Unknown History tablet Pain albuterol sulfate 90 mcg/actuation 2 puff inhalation Q4-6H PRN 03/26/22 06/26/22 Unknown History aerosol inhaler (Ventolin HFA) Wheezing Exam Airway Mallampati Class: II TM Dist: >3cm Heart: rrr Lungs: cta, scattered wheezing Assessment and Plan Assessment Anesthesia Assessment: Anesthesia Plan Discussed Final Anesthetic Review Family History of Problems with Anesthesia: No History of Problems with Anesthesia: No NPO: Yes ASA Class: IV Final Preanesthetic Review: No Changes in Pt Med Stat, Meds/Allgs Chart Reviewed, Consent Obtained/Reviewed and Anes Risks/Benef Reviewed Patient Risk: High Procedure Risk: Intermediate Anesthetic Plan Anesthetic Plan: GA Disposition: Standard PACU
--- NOTE | ~2022-06-28 | FL_ITS ---
EXAMINATION: XR FLUOROSCOPY WITH IMAGES CLINICAL INFORMATION: Stimulator trial COMPARISON: None available. TECHNIQUE: Fluoroscopy Supervised By: Dr. Edmond Sheehan. Fluoroscopy Time: 3.6 minutes. Cumulative Dose: 7 mGy. DAP: 19 Gycm2. Images: 2. FINDINGS: Images demonstrate 2 leads projecting over the lower thoracic spinal canal. FL/FL guidance in OR IMPRESSION: Fluoroscopic guidance for spinal trial.
[2022-06-28] MEDS: Lactated Ringers 1,000 ML 50 ML IVCONT (08:45)
[2022-06-28 08:58] VITALS: BP 110/58; PULSE 96; RESP 18; TEMP 36.6; O2SAT 97
--- NOTE | 2022-06-28 09:09 | PC.NURSE ---
dr. ramos stated that patient is to have MRSA swab today due to hx MRSA. completed in sss and sent to lab
[2022-06-28] MEDS: vancomycin HCL 1,500 MG in 0.9 % Sodium Chloride 500 ML 333.33 MG IV (10:17)
--- NOTE | 2022-06-28 10:42 | MHC.SHP ---
Pre-Procedural Eval Section A Date of Service: 06/28/22 The patient is an INPATIENT: No Changes since office visit: Yes Patient answered all questions The History & Physical has been completed within 30 days and I have reviewed it.: No Section B Chief Complaint: Postlaminectomy syndrome,chronic pain Details of Present Illness: as above Relevant Family History (Specify if Yes): No Relevant Social History: None Present Medications: None Medical History: No relevant PMH History of Previous Operations: Relevant previous surgery/procedure and date(s) Allergies: Allergies Allergy/AdvReac Type Severity Reaction Status Date / Time bupropion [From Wellbutrin] Allergy Intermediate Hives, Rage Verified 06/25/22 14:50 varenicline [From Chantix] Allergy Intermediate Agitation, Verified 06/25/22 14:50 Aggression codeine [Codeine] Allergy Mild HIVES/ITCHI Verified 06/19/22 13:38 NG methadone [Methadone] Allergy Mild HIVES/ITCHI Verified 06/19/22 13:38 NG barium sulfate Allergy Unknown Unknown Verified 06/19/22 13:38 Black Pepper-Turmeric Allergy Unknown Unknown Uncoded 06/19/22 13:38 Review of Systems Sugical H&P ROS: Negative: Constitution, Cardiovascular, Respiratory, Neurological, Psychiatric, Hem-Onc, Allergic/Immunologic, Gastrointestinal, Genitourinary, Musculoskeletal, Integumentary, Endocrine and Eyes/Ears/Nose/Throat Exam Surgical H&P Exam: Normal: HEENT, Normal: Heart, Normal: Lungs, Normal: Extremities, Normal: Abdomen, Normal: Skin and Normal: Neurological Plan Diagnosis/Plan: Unchanged I have reviewed the history and physical and performed a pertinent physical examination on my patient. No changes have occurred unless specified. Time Spent With Patient Time: Total time managing care of this patient today _5___ minutes.
--- NOTE | 2022-06-28 11:16 | P.OP_ITS ---
Operative Note Operative Note Date of Service: 06/28/22 Narrative: Daniel is very pleasant 51 years old gentleman who is here for the trial of spinal cord stimulator Nevro for the treatment of postlaminectomy syndrome pain and perypheral polyneuropathy... Preoperatively patient received? vancomycin 1.5 g intravenously approximately 1 hour before the procedure. The patient has history of MRSA infection. After obtaining informed consent patient was brought to the operating room, HE was positioned? Prone on the operating table, [employer] monitors were applied and patient was? sedated. ? Time-out was performed delineating correct site, side, the nature of the procedure, patient's allergy, preoperative antibiotic if needed.? All operating room staff was participating in OR time-out procedure. Patient's entire back was prepped with ChloraPrep twice and draped with full body fenestrated drape.? Sterilely draped C-arm was brought over operating field and sqare picture of T11-T12, L1, L2 vertebrae as were demonstrated on the screen.?The decision was made to concentrate the attention on T12- L1 interlaminar space.? The location of the projection of the right pedicle center of the _L2 vertebra was found on the skin using C-arm.? This location was injected with mixture of lidocaine 2% and Marcaine 0.5% 5 cc.? After that 11 blade was used to make a devan on the skin.? 10 cm 14 gauge introducer epidural needle was inserted through the devan and advanced to T12-L1 epidural interspace.? The advancement of the needle was performed on anterior posterior and lateral views.?CODI to air was used to detect epidural space. ? . the needle was advancing to were the [id number] interspace on anterior posterior and lateral views.Guitar wire and loss of resistance technique were used to locate epidural space.? When guitar wire was spread in the epidural fashion, epidural lead was inserted through the needle and it was advanced to top T8 position PRACTICALLY at THE MIDLINE in the posterior epidural space.? After that location of the projection of the LEFT pedicle center of the [id number] was found on the skin using C-arm.? This location was injected with mixture of lidocaine 2% and Marcaine 0.5% 5 cc.? After that 11 blade was used to make a devan on the skin.? 10 cm 14 gauge? introducer epidural needle was inserted through the devan and advanced to T12-L1 epidural interspace.? The advancement of the needle was done on AP and lateral views, CODI to air was used to detect epidural space, guitar wire was advanced to the needle and was spreading in epidural fashion and after that epidural stimulation lead was inserted through the needle and was advancing to the posterior epidural space to the level of T9 upper third of the vertebra with the position slightly left to midline right inserted wire. The position of the leads verified on anterior posterior and lateral views,The stilets and epidural needle were withdrawn and care was taken not to dislodge the epidural leads. The anchoring devices were dislodged on the leads and advanced to the level of the skin.? The anchoring device was sutured with two 0- 0 silk sutures for each anchor? to the skin of the patient.? The screws were tighten on the anchoring devices until 3 clicks were heard. The leads were connected to testing device.? Bacitracin ointment was applied to the entrance point of the needle entrance on the right.? Sterile dressing applied.? The lead was connected to stimulating device which was taped to the skin. The impedance was checked and it was appropriate. The patient tolerated procedure well.? He was taken outside of the operating room to recovery room where he recovered uneventfully. He was examined postoperatively and found to have no neurological deficits.
--- NOTE | 2022-06-28 11:20 | PC.NURSE ---
Dr. Christy and Dr. Sheehan aware that office did not ask for a rep for post procedure for AICD interrogation as/if needed. Office calling entry level marketing representative now. Dr. Christy stated okay to proceed as ordered for today's surgical procedure and Device can be off until appropriate cardiac representation scheduled.
[2022-06-28 11:38] LABS: MRSA Nasal PCR NEGATIVE (Negative); SA Nasal PCR NEGATIVE (Negative)
[2022-06-28 12:20] VITALS: BP 90/57; PULSE 104; RESP 17; TEMP 36.6; O2SAT 96
[2022-06-28 12:35] VITALS: BP 88/61; PULSE 94; RESP 17; O2SAT 96
--- NOTE | 2022-06-28 12:37 | P.BOP_ITS ---
Brief Operative Note Date of Service: 06/28/22 Pre-op diagnosis: postlaminectomy syndrome chronic pain syndrome Post-op diagnosis: same Procedure: trial of Nevro spinal cord stimulator Surgeon: Edmond Sheehan MD Anesthesia: MAC Was an Defensive Secondary Coach used for this Procedure?: No Estimated blood loss (mL): 0 Condition: stable Disposition: PACU
[2022-06-28 12:46] VITALS: BP 92/60; PULSE 84; RESP 14; TEMP 36.6; O2SAT 96
[2022-06-28] MEDS: Acetaminophen 1,000 MG/100 ML PIGGYBACK 400 MG IV (12:57)
[2022-06-28 13:04] VITALS: BP 114/77; PULSE 82; RESP 14; O2SAT 96
== END 2022-06-28 13:25 | disposition home or self-care (01) ==
PROVIDERS: Nurse Practitioner Family; PCP Nurse Practitioner Family; Visit Provider Anesthesiology
PROC: (CPT 63650; principal; 2022-06-28 09:40)
DX: M96.1 Postlaminectomy syndrome, not elsewhere classified (principal); G89.4 Chronic pain syndrome; G90.9 Disorder of the autonomic nervous system, unspecified; I46.9 Cardiac arrest, cause unspecified; I25.10 Atherosclerotic heart disease of native coronary artery without angina pectoris; J44.9 Chronic obstructive pulmonary disease, unspecified; Z95.810 Presence of automatic (implantable) cardiac defibrillator; F11.20 Opioid dependence, uncomplicated; Z79.82 Long term (current) use of aspirin; Z86.14 Personal history of Methicillin resistant Staphylococcus aureus infection; Z88.8 Allergy status to other drugs, medicaments and biological substances; Z86.73 Personal history of transient ischemic attack (TIA), and cerebral infarction without residual deficits; F17.210 Nicotine dependence, cigarettes, uncomplicated; Z90.49 Acquired absence of other specified parts of digestive tract
CPT/HCPCS: 63650 ×2; 87640; 87641; C1713; C1897; J0131; J2795; J3370; J3371

== ENCOUNTER → 2022-07-04 09:30 | Outpatient (BNVA) | payer MEDICARE, MEDICAID, SELFPAY | PROVIDERS: PCP Nurse Practitioner Family; Visit Provider Anesthesiology | DX: G89.4 Chronic pain syndrome (principal); M96.1 Postlaminectomy syndrome, not elsewhere classified | CPT/HCPCS: 99212 ==

== ENCOUNTER → 2022-07-05 10:06 | Outpatient (BNVA) | payer MEDICARE, MEDICAID, SELFPAY | PROVIDERS: PCP Nurse Practitioner Family; Visit Provider Physician Assistant | DX: Z47.89 Encounter for other orthopedic aftercare (principal); Z98.890 Other specified postprocedural states | CPT/HCPCS: 99212 ==

== ENCOUNTER 2022-07-10 05:59 | Day surgery (SDC) | payer MEDICARE, MEDICAID, SELFPAY ==
[2022-07-04 20:25] VITALS: BMI 28.1
--- NOTE | 2022-07-09 09:22 | P.CONAN_ITS ---
Documented by User: Анна Chen NP 07/09/22 09:25 HPI - Anesthesia Eval Consult details Narrative: 51yo M for Right Arthroscopic Rotator Cuff Repair s/p Spinal Cord Stimulation Trial,thoracic placement 06/2022 with MAC ICD in situ (inserted s/p cardiac arrest 2019) Cardiac eval 05/2022 - CAD, NICMP, Hx cardiac arrest - stable, cleared Pulmo eval 06/2022 - COPD - stable PMFSH Active Problems Active Problems: All Active Problems (Updated 07/05/22 @ 08:56 by Beckie Kirk RN) Nonischemic cardiomyopathy (Acute) Cigarette nicotine dependence (Acute) COPD (chronic obstructive pulmonary disease) (Acute) Right shoulder pain (Acute) Screening for prostate cancer (Acute) Chronic pain syndrome (Acute) Failed back syndrome, cervical (Acute) Failed back syndrome, lumbar (Acute) BPH w/o urinary obs/LUTS (Acute) Left facial numbness (Acute) Right shoulder pain (Acute) History of repair of right rotator cuff (Acute) Low vitamin D level (Acute) Hyperlipidemia (Acute) Leukocytosis (Acute) Cough (Acute) Postlaminectomy syndrome, cervical (Acute) Postlaminectomy syndrome (Acute) Postlaminectomy syndrome of lumbar region (Acute) Right rotator cuff tear (Acute) Chronic pain syndrome (Acute) Preoperative clearance (Acute) Preoperative cardiovascular examination (Acute) Restrictive lung disease (Acute) Smoker (Acute) COPD with exacerbation (Acute) Cardiac arrest (Acute) Atherosclerotic cardiovascular disease (Acute) Past Medical History Medical History Atherosclerotic cardiovascular disease Back pain Cardiac arrest Cardiac defibrillator in place COPD with exacerbation History of TIA (transient ischemic attack) Hyperlipidemia MRSA infection Nonischemic cardiomyopathy Restrictive lung disease Rotator cuff arthropathy of both shoulders Smoker Uncomplicated opioid dependence Family History Family History Mother Multiple sclerosis Father Diabetes Amputat leg, bilat-complicated Sister Lupus Family history of problems with anesthesia: No Surgical History Surgical History History of back surgery History of cholecystectomy History of repair of left rotator cuff History of repair of right rotator cuff (~05/27/13) Hx of cardiac catheterization Hx of fusion of cervical spine S/P insertion of spinal cord stimulator Status post subacromial decompression (~10/30/17) History of Problems with Anesthesia: No Social History Social History Alcohol intake: former Year quit: 2016 Patient Tobacco Use Status: Current everyday Tobacco user Tobacco use type: Cigarette Cigarette Packs Per Day: 0.5 Cigarettes Per Day: 10.0 Years Smoked: 42 e-Cigarette/Vaping Use: Currently Using Use of substances other than those prescribed or required for medical reasons: No Are you DNR?: No Advance Directives: No Advance Directives Information Provided: Yes Advance Directives on File: No Recently lost weight without trying: No Nutrition Risks: No Nutritional Risk Cognitive needs: No Hearing needs: No Vision needs: No Meds Allergies Allergy/AdvReac Type Severity Reaction Status Date / Time bupropion [From Wellbutrin] Allergy Intermediate Hives, Rage Verified 07/05/22 10:14 varenicline [From Chantix] Allergy Intermediate Agitation, Verified 07/05/22 10:14 Aggression codeine [Codeine] Allergy Mild HIVES/ITCHI Verified 07/05/22 10:14 NG methadone [Methadone] Allergy Mild HIVES/ITCHI Verified 07/05/22 10:14 NG barium sulfate Allergy Unknown Unknown Verified 07/05/22 10:14 Black Pepper-Turmeric Allergy Unknown Unknown Uncoded 06/19/22 13:38 Home Medications Medication Instructions Recorded Confirmed Last Taken Type aspirin 81 mg tablet,delayed 81 mg PO DAILY 02/12/22 07/04/22 07/03/22 History release (Adult Low Dose Aspirin) nitroglycerin 0.4 mg sublingual 0.4 mg sublingual Q5M PRN Chest 03/18/22 07/04/22 Unknown History tablet Pain albuterol sulfate 90 mcg/actuation 2 puff inhalation Q4-6H PRN 03/26/22 07/04/22 Unknown History aerosol inhaler (Ventolin HFA) Wheezing Exam Exam Date and Time: July 09, 2022921 Height,Weight and Vital Signs: Height 6 ft 2 in Weight 99.337 kg Pertinent Lab Results Pertinent Lab Results: Laboratory Tests 06/14/22 06/14/22 11:59 11:59 WBC 9.4 Hgb 15.2 Hct 44.2 Plt Count 166 Sodium 140 Potassium 4.2 Chloride 109 H Carbon Dioxide 22 BUN 16 Creatinine 0.86 Narrative Narrative: ECHO 03/2022 Conclusions: - The left ventricular systolic function is moderately decreased. The visually estimated ejection fraction is between 35-40%.? ? ? - No obvious valvular pathology seen on this study.? EKG 05/2022 SR @ 85 LAD ? septal infarct QS in V1 V2 slight IV conduction delay Cardiac catheterization 2021 normal left main; LAD 40-50% ostial stenosis; RCA 30-40% stenosis in the proximal part of PLV; otherwise unremarkable.? Cardiac Device Check Details: Date of service 05/02/2022;?Battery life 12 years; normal lead parameters; no treated VT/VF; ; normal ICD function. PFT 06/2022 FLOWS:? 1. FEV1 72% of predicted at 3.13 L. 2. FVC 67% of predicted at 3.79 L. 3. FEV1 to FVC ratio of 0.83. 4. No bronchodilator response. ?? LUNG VOLUMES:? 1. Total lung capacity 76% of predicted at 5.94 L. 2. Residual volume 96% of predicted at 3.26 L. 3. Slow vital capacity 67% of predicted at 3.68 L. 4. Expiratory reserve volume 72% of predicted at 1.27 L. 5. Diffusion capacity is moderately decreased. ?? IMPRESSION:? Moderate restrictive ventilatory defect with no bronchodilator response. Decreased diffusion capacity and combination with restrictive ventilatory defect suggest underlying pulmonary parenchymal disease.? Clinical correlation is advised. Assessment and Plan Assessment Anesthesia Assessment: Chart Reviewed Final Anesthetic Review Family History of Problems with Anesthesia: No History of Problems with Anesthesia: No Documented by User: Manav Christy MD 07/10/22 07:10 [facility] Past Medical History Medical History Atherosclerotic cardiovascular disease Back pain Cardiac arrest Cardiac defibrillator in place COPD with exacerbation History of TIA (transient ischemic attack) Hyperlipidemia MRSA infection Nonischemic cardiomyopathy Restrictive lung disease Rotator cuff arthropathy of both shoulders Smoker Uncomplicated opioid dependence Family History Family History Mother Multiple sclerosis Father Diabetes Amputat leg, bilat-complicated Sister Lupus Surgical History Surgical History History of back surgery History of cholecystectomy History of repair of left rotator cuff History of repair of right rotator cuff (~05/27/13) Hx of cardiac catheterization Hx of fusion of cervical spine S/P insertion of spinal cord stimulator Status post subacromial decompression (~10/30/17) Social History Social History Alcohol intake: former Year quit: 2015 Patient Tobacco Use Status: Current everyday Tobacco user Tobacco use type: Cigarette Cigarette Packs Per Day: 0.5 Cigarettes Per Day: 10.0 Years Smoked: 42 e-Cigarette/Vaping Use: Currently Using Use of substances other than those prescribed or required for medical reasons: No Are you DNR?: No Advance Directives: No Advance Directives Information Provided: Yes Advance Directives on File: No Recently lost weight without trying: No Nutrition Risks: No Nutritional Risk Cognitive needs: No Hearing needs: No Vision needs: No Meds Allergies Allergy/AdvReac Type Severity Reaction Status Date / Time bupropion [From Wellbutrin] Allergy Intermediate Hives, Rage Verified 07/05/22 10:14 varenicline [From Chantix] Allergy Intermediate Agitation, Verified 07/05/22 10:14 Aggression codeine [Codeine] Allergy Mild HIVES/ITCHI Verified 07/05/22 10:14 NG methadone [Methadone] Allergy Mild HIVES/ITCHI Verified 07/05/22 10:14 NG barium sulfate Allergy Unknown Unknown Verified 07/05/22 10:14 Black Pepper-Turmeric Allergy Unknown Unknown Uncoded 06/19/22 13:38 Home Medications Medication Instructions Recorded Confirmed Last Taken Type aspirin 81 mg tablet,delayed 81 mg PO DAILY 02/12/22 07/04/22 07/03/22 History release (Adult Low Dose Aspirin) nitroglycerin 0.4 mg sublingual 0.4 mg sublingual Q5M PRN Chest 03/18/22 07/04/22 Unknown History tablet Pain albuterol sulfate 90 mcg/actuation 2 puff inhalation Q4-6H PRN 03/26/22 07/04/22 Unknown History aerosol inhaler (Ventolin HFA) Wheezing Exam Airway Mallampati Class: III TM Dist: >3cm Neck ROM: Limited Heart: rrr Lungs: decreased bs Assessment and Plan Assessment Anesthesia Assessment: Anesthesia Plan Discussed and Smoking Cess. Discussed Final Anesthetic Review NPO: Yes ASA Class: IV Final Preanesthetic Review: No Changes in Pt Med Stat, Meds/Allgs Chart Reviewed and Anes Risks/Benef Reviewed Patient Risk: High Procedure Risk: Intermediate Anesthetic Plan Anesthetic Plan: GA and Regional Block Disposition: Standard PACU
[2022-07-10] VITALS (13 sets, daily range): BP systolic 88–140; BP diastolic 60–72; PULSE 70–89; RESP 16–18; TEMP 36.1–36.4; O2SAT 94–98
[2022-07-10] MEDS: Lactated Ringers 1,000 ML 100 ML IVCONT (06:34)
--- NOTE | 2022-07-10 07:36 | MHC.SHP ---
Pre-Procedural Eval Section A Date of Service: 07/10/22 The patient is an INPATIENT: No Changes since office visit: No Cold of Flu in the past 2 weeks, No New Medical Problems, No Changes in Medication and No Patient answered all questions The History & Physical has been completed within 30 days and I have reviewed it.: Yes Section B Chief Complaint: Unspecified rotator cuff tear or rupture of right Allergies: Allergies Allergy/AdvReac Type Severity Reaction Status Date / Time bupropion [From Wellbutrin] Allergy Intermediate Hives, Rage Verified 07/05/22 10:14 varenicline [From Chantix] Allergy Intermediate Agitation, Verified 07/05/22 10:14 Aggression codeine [Codeine] Allergy Mild HIVES/ITCHI Verified 07/05/22 10:14 NG methadone [Methadone] Allergy Mild HIVES/ITCHI Verified 07/05/22 10:14 NG barium sulfate Allergy Unknown Unknown Verified 07/05/22 10:14 Black Pepper-Turmeric Allergy Unknown Unknown Uncoded 06/19/22 13:38 Plan I have reviewed the history and physical and performed a pertinent physical examination on my patient. No changes have occurred unless specified. Time Spent With Patient Time: Total time managing care of this patient today ____ minutes.
--- NOTE | 2022-07-10 09:24 | P.BOP_ITS ---
Brief Operative Note Date of Service: 07/10/22 Pre-op diagnosis: Right rtc tear Post-op diagnosis: same Procedure: Right RTC repair Subscapularis and supraspiatus Implants: Chapa and nephew helacoil knotless x 3, Chapa [employer] Nephew Helacoil double loaded mesial row anchors x 2 Surgeon: Rich Reece MD Anesthesia: GETA and regional Was an Railway Patrol Officer used for this Procedure?: Yes Railway Patrol Officer: Mary Live Estimated blood loss (mL): 25 IV fluids (mL): 1,000 Pathology: none sent Condition: stable Disposition: PACU
--- NOTE | 2022-07-10 10:26 | W.PM.OPN ---
Operative Note Operative Note Date of Service: 07/10/22 Narrative: Brief Operative Note Date of Service: 07/10/22 Pre-op diagnosis: Right rtc tear Post-op diagnosis: same Procedure: Right RTC repair Subscapularis and supraspiatus Implants: Chapa and nephew helacoil knotless x 3, Chapa and Nephew Helacoil double loaded mesial row anchors x 2 Surgeon: Rich Reece MD Anesthesia: GETA and regional Was an Sales Representative Cash Registers used for this Procedure?: Yes Sales Representative Cash Registers: Mary Live Estimated blood loss (mL): 25 IV fluids (mL): 1,000 Pathology: none sent Condition: stable Disposition: PACU Procedure in detail: Patient was brought to the operating room and placed the the beach chair position. All bony prominences were well padded and the limb was prepped and draped in standard sterile fashion. A time out was called to identify proper site, proper procedure and proper surgeon. IV antibiotics per weight were administered. I began by making a posterolateral stab incision with a 15 blade. A blunt trochar was placed into the glenohumeral joint and I insufflated the joint with saline and a 30 degree arthroscope was placed. I established an outside- in anterior portal just distal to the biceps tendon. I then began my inspection of the glenohumeral joint. There was an intact biceps tand mild degenerative tearing of the labrum circumferentially with G1-2 change at the inferior glenoid without associated humeral head changes. There was a high grade tear of the superior poertion of the subscapularis. I debrided the labrum and the firble synovial tissue superior to the labrum. I then placed two looped fiber tape through the torn portion of the subscapularis and debrided the ionsertion down to bleeeding bone. I then placed the limbs of the looped suture through a Chapa and Nephew 5.0 knotless helacoil and , while in internal rotation, reapproximated the torn tendon to its anatomic insertion. I was satisfied with the repair. There was a full thickness undersurface RTC tear with evidence of prior surgery. I then removed the trochar and entered the subacromial space. A direct lateral portal was then established and I performed a bursectomy. The cuff was then examined. There was a full thickness tear of the anterior supraspinatus without retraction. The tear was mobile but the tissue was adequate with the majority of healthy tissue being posterior. I then placed two medial row double loaded anchors and then brought the suture tape and suture through the medial cuff.I then debrided the bare area down to bleeding bone and, using a cross bridge configuration, brought four limbs to each of two lateral 5.5mm anchors. This re-approximated the cuff near anatomically. I was satisfied with the repair and final images were captured. I removed all instrumentation. Portals were closed with nylon. Patient was placed in an abduction sling, extubated and brought to the recovery room in stable condition. There were no known complications.
== END 2022-07-10 12:20 | disposition home or self-care (01) ==
PROVIDERS: PCP Nurse Practitioner Family; Visit Provider Orthopaedic Surgery
PROC: (CPT 29827; principal; 2022-07-10 07:30)
DX: M75.101 Unspecified rotator cuff tear or rupture of right shoulder, not specified as traumatic (principal); I25.10 Atherosclerotic heart disease of native coronary artery without angina pectoris; I42.8 Other cardiomyopathies; I46.9 Cardiac arrest, cause unspecified; Z95.810 Presence of automatic (implantable) cardiac defibrillator; J44.9 Chronic obstructive pulmonary disease, unspecified; E78.5 Hyperlipidemia, unspecified; Z79.82 Long term (current) use of aspirin; Z79.899 Other long term (current) drug therapy; F11.20 Opioid dependence, uncomplicated; Z88.8 Allergy status to other drugs, medicaments and biological substances; Z98.890 Other specified postprocedural states; Z86.73 Personal history of transient ischemic attack (TIA), and cerebral infarction without residual deficits; F17.210 Nicotine dependence, cigarettes, uncomplicated
CPT/HCPCS: 29827; 29826; C1713; J0171; J0690; J1100; J2370; J2405; J2795; J3010

== ENCOUNTER → 2022-07-15 08:35 | Outpatient (BNVA) | payer MEDICARE, MEDICAID, SELFPAY | PROVIDERS: PCP Nurse Practitioner Family; Visit Provider Physician Assistant | DX: Z47.89 Encounter for other orthopedic aftercare (principal); Z98.890 Other specified postprocedural states | CPT/HCPCS: 99212 ==

== ENCOUNTER → 2022-08-13 12:21 | Outpatient (BNVA) | payer MEDICARE, MEDICAID, SELFPAY | PROVIDERS: PCP Nurse Practitioner Family; Visit Provider Physician Assistant | DX: Z47.89 Encounter for other orthopedic aftercare (principal); Z98.890 Other specified postprocedural states | CPT/HCPCS: 99212 ==

== ENCOUNTER 2022-09-20 15:00 | Outpatient (RCR) | payer MEDICARE, MEDICAID, SELFPAY ==
--- NOTE | 2022-07-16 09:57 | MHC.PT.EP ---
[facility] [place] Office [place] Office [place] Office [address] Jose Ramirez [address] [phone] F: [phone] F: [phone] F: [phone] F: [phone] Physical Therapy Plan of Care Date of Evaluation: Date of Surgery: 07/10/2022 Diagnosis: s/p R RTC repair supraspinatus and subscapularis (DOS 07/10/22) Assessment: Patient is a 51 y.o. male who is referred to PT by Dr. Rich Reece MD, with Dx of s/p R RTC repair (supraspinatus, subscapularis). He has complex medical history including hx cardiac arrest, pacemaker, COPD, cervical spinal fusion, lumbar spinal fusion with removed spinal stimulator. Patient impairments include pain, weakness, limited ROM. Patient current functional limitations are impaired posture, unable to perform ADLs independently. Patient will benefit from skilled PT to address aforementioned impairments and functional limitations to meet established goals. Patient is a smoker which can negatively effect his tissue healing. Frequency and Duration: The patient will be seen 2x/week for 6 weeks Short Term Goals: 3 weeks Patient is able to maintain movement precautions for R shoulder. Patient is able to safely wean off sling as cleared by orthopedics week 4. 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 Patient presents with increased R shoulder ER 60 degrees to be able to dress without assist. Treatment Plan: Modalities to reduce pain, spasms and effusion. Manual therapy to restore motion and function. Therapeutic exercise to improve strength and flexibility. Neuromuscular re-education for posture and balance. Therapeutic activities to return to functional activities of daily living. Electronically signed by: James Rolle, PT, DPT Please sign and return to therapist. Thank you for your referral.
--- NOTE | 2022-11-18 09:32 | MHC.PT.DC ---
[facility] [place] Office [place] Office [place] Office [address] Jose Ramirez [address] [phone] F: [phone] F: [phone] F: [phone] F: [phone] Physical Therapy Discharge Report Diagnosis: s/p R RTC repair supraspinatus and subscapularis (DOS 07/10/22) Date of Surgery: 07/10/2022 Date of Evaluation: 07/16/22 Date of Discharge: 09/20/22 Treatments to Date: 10 Cancellations to Date: 10 No Shows to Date: 1 Discharge Status: Independent with HEP Patient Elected to Stop Discharge Summary: Daniel was inconsistent with attendance with PT, showed some compliance throughout with education and HEP. I would have preferred him to continue with more PT post surgically but he called to report he wanted to discontinue PT and continue on his own after having MD FUP. Therefore he is discharged from PT at this time. Electronically signed by: James Rolle, PT, DPT Please sign and return to therapist. Thank you for your referral.
== END 2022-11-18 09:34 | disposition home or self-care (01) ==
LOC: HO.PT 15:00
PROVIDERS: PCP Nurse Practitioner Family; Visit Provider Orthopaedic Surgery
DX: Z98.890 Other specified postprocedural states (principal)
CPT/HCPCS: 97110; 97140; 97163

== ENCOUNTER 2022-09-23 12:35 | Outpatient (AMB) | payer MEDICARE, MEDICAID, SELFPAY ==
--- NOTE | 2022-09-23 12:36 | MHC.OFFVIS ---
Intake Intake Visit Reasons: Postop-RT RTS repair 07/10/22NE Intake Note: Daniel is a 52 year old right hand dominant male who presents today for a post operative appointment s/p Right RTC Repair 07/10/22. Patient reports that he is doing well, with no concerns. He would like to know when he can resume weight lifting. Allergies bupropion [From Wellbutrin] Allergy (Intermediate, Verified 09/23/22 12:38) Hives, Rage varenicline [From Chantix] Allergy (Intermediate, Verified 09/23/22 12:38) Agitation, Aggression codeine [Codeine] Allergy (Mild, Verified 09/23/22 12:38) HIVES/ITCHING methadone [Methadone] Allergy (Mild, Verified 09/23/22 12:38) HIVES/ITCHING barium sulfate Allergy (Unknown, Verified 09/23/22 12:38) Unknown Black Pepper-Turmeric Allergy (Unknown, Uncoded 09/23/22 12:38) Unknown HPI Postop-RT RTS repair 07/10/22NE HPI Details Daniel is a 52 year old man who presents ~10 weeks S/P right RTC repair. He says he is doing well and does not have any complaints of pain. He still has some limitations in overhead motion, but he continues to work with PT. He would like to know when he can resume exercising with his Bowflex at home. [facility] Medical History Atherosclerotic cardiovascular disease Back pain Cardiac arrest Cardiac defibrillator in place COPD with exacerbation History of TIA (transient ischemic attack) Hyperlipidemia MRSA infection Nonischemic cardiomyopathy Restrictive lung disease Rotator cuff arthropathy of both shoulders Smoker Uncomplicated opioid dependence Surgical History History of back surgery History of cholecystectomy History of repair of left rotator cuff History of repair of right rotator cuff (~05/27/13) Hx of cardiac catheterization Hx of fusion of cervical spine S/P insertion of spinal cord stimulator Status post subacromial decompression (~10/30/17) Family History Mother Multiple sclerosis Father Diabetes Amputat leg, bilat-complicated Sister Lupus Social History Alcohol intake: former Year quit: 2016 Patient Tobacco Use Status: Current everyday Tobacco user Tobacco use type: Cigarette Cigarette Packs Per Day: 0.5 Cigarettes Per Day: 10.0 Years Smoked: 42 e-Cigarette/Vaping Use: Currently Using Cognitive needs: No Hearing needs: No Vision needs: No Review of Systems Const All systems reviewed & are unremarkable except as noted in HPI and below Physical Exam Const General: no acute distress and alert Orientation/consciousness: patient oriented x3 Neuro General: patient oriented x3 Extrem Other: Right Shoulder: Well-healed portals Full ROM - empty can - belly liftoff Psych Appearance: grossly normal Affect: normal affect Attitude: cooperative Assessment & Plan Assessment & Plan (1) S/P right rotator cuff repair: Code(s): Z98.890 - Other specified postprocedural states Plan: This is a 52 year old man S/P right supraspinatus & subscapularis tendon repair, DOS: 07/10/22. He is doing well, with no complaints today, and is eager to return to using his Bowflex for strengthening exercises & daily activities. I am a little worried as he seems to be pushing his motion quite a bit, but otherwise he is doing well. I recommend he avoid any overhead or heavy lifting activities at this time, and he continue with colleen-scapular strengthening and PT exercises at home, being mindful to not push through pain. I explained it would likely be ~1 year post-op before he can return to normal overhead activities. He will follow up in 3 months. (2) History of repair of right rotator cuff: Comment: 05/27/13 Code(s): Z98.890 - Other specified postprocedural states Plan Scribed for Rich Reece MD by Dominik Casey, medical insurance claims processor, on 09/23/22 at 12:50 PM, EST. Coding Level of Care Code Global (46498) Diagnoses S/P right rotator cuff repair Z98.890 History of repair of right rotator cuff Z98.890
== END 2022-09-23 13:49 | disposition home or self-care (01) ==
PROVIDERS: PCP Nurse Practitioner Family; Visit Provider Orthopaedic Surgery
DX: Z98.890 Other specified postprocedural states (principal)
CPT/HCPCS: 99024

== ENCOUNTER → 2022-09-23 12:35 | Outpatient (BNVA) | payer MEDICARE, MEDICAID, SELFPAY | PROVIDERS: PCP Nurse Practitioner Family; Visit Provider Orthopaedic Surgery ==

== ENCOUNTER 2022-10-01 15:44 | Outpatient (AMB) | payer MEDICARE, MEDICAID, SELFPAY ==
[2022-10-01 15:47] VITALS: BP 118/72; PULSE 56; O2SAT 97; BMI 28.6
--- NOTE | 2022-10-01 15:47 | A.OFFVIS_ITS ---
Intake Vital Signs 10/01/22 15:47 Height 6 ft 2 in Weight 223 lb BMI 28.6 BP 118/72 Blood Pressure Location Lt brachial Position Sitting Pulse 56 Pulse Source Pulse Oximeter Temp Source Skin Pulse Oximetry (%) 97 Oxygen Delivery Method Room Air Intake Visit Reasons: [id number] Intake Note: Patient is here for an Annual Wellness Visit. Digital Analyst Required: No Allergies bupropion [From Wellbutrin] Allergy (Intermediate, Verified 10/01/22 16:18) Hives, Rage varenicline [From Chantix] Allergy (Intermediate, Verified 10/01/22 16:18) Agitation, Aggression codeine [Codeine] Allergy (Mild, Verified 10/01/22 16:18) HIVES/ITCHING methadone [Methadone] Allergy (Mild, Verified 10/01/22 16:18) HIVES/ITCHING barium sulfate Allergy (Unknown, Verified 10/01/22 16:18) Unknown Black Pepper-Turmeric Allergy (Unknown, Uncoded 10/01/22 16:18) Unknown Medication List - Last Reconciled 10/01/22 by YOMAIRA Quiles albuterol sulfate 90 mcg/actuation (Ventolin HFA) 2 puffs inhalation Q4-6H PRN aspirin (Adult Low Dose Aspirin) 81 mg PO DAILY atorvastatin 80 mg PO DAILY carvedilol 3.125 mg PO BID 90 days cholecalciferol (vitamin D3) 50 mcg PO DAILY lisinopril 5 mg PO DAILY naloxone 4 mg/actuation 4 mg intranasal Q3M PRN 1 day nitroglycerin 0.4 mg sublingual Q5M PRN spironolactone 25 mg PO DAILY tamsulosin (Flomax) 0.4 mg PO DAILY Fall Risk Assessment Fall risk assessment: No Falls in past year Date Fall Risk Assessed: 10/01/22 HPI [id number] HPI Details Patient is a 52-year-old male who presents today for initial wellness visit. Patient is up-to-date with his health preventative screenings and immunizations. Patient reports normal colonoscopy in 2018 which was done at [facility] and repeat in 10 years, will request records. [place] of care was reviewed with the patient and he was provided with a screening schedule. Patient has a healthcare proxy in place and he was provided with a MOLST form. In addition, patient reports no energy and low libido for a while now, would like his testosterone level to be checked. [facility] Medical History (Updated 10/01/22 @ 16:40 by YOMAIRA Quiles) Atherosclerotic cardiovascular disease Back pain Cardiac arrest Cardiac defibrillator in place COPD with exacerbation History of TIA (transient ischemic attack) Hyperlipidemia MRSA infection Nonischemic cardiomyopathy Restrictive lung disease Rotator cuff arthropathy of both shoulders Smoker Uncomplicated opioid dependence Surgical History (Updated 10/01/22 @ 16:40 by YOMAIRA Quiles) History of back surgery History of cholecystectomy History of colonoscopy History of repair of left rotator cuff History of repair of right rotator cuff (~05/27/13) Hx of cardiac catheterization Hx of fusion of cervical spine S/P insertion of spinal cord stimulator Status post subacromial decompression (~10/30/17) Family History Mother Multiple sclerosis Father Diabetes Amputat leg, bilat-complicated Sister Lupus Social History Alcohol intake: former Year quit: 2016 Patient Tobacco Use Status: Current everyday Tobacco user Tobacco use type: Cigarette Cigarette Packs Per Day: 0.5 Cigarettes Per Day: 10.0 Years Smoked: 42 e-Cigarette/Vaping Use: Currently Using Cognitive needs: No Hearing needs: No Vision needs: No Questionnaire Medicare Wellness Checkup [age] 65-67 What gender do you identify with?: male During the past 4 weeks, how much have you been bothered by emotional problems such as feeling anxious, depressed, irritable, sad or downhearted, and blue?: not at all During the past 4 weeks, has your physical & emotional health limited your social activities with family, friends, neighbors, or groups?: quite a bit During the past 4 weeks, how much bodily pain have you generally had?: moderate pain During the past 4 weeks, was someone available to help you if you needed & wanted help?: yes, as much as I wanted During the past 4 weeks, what was the hardest physical activity you could do for at least 2 minutes?: light Can you get to places out of walking distance without help? (For eg., can you travel alone on buses, taxis or drive your car?): Yes Can you go shopping for groceries or clothes without someone's help?: No Can you prepare your own meals?: Yes Can you do your housework without help?: No Because of any health problems, do you need the help of another person with your personal care needs such as eating, bathing, dressing or getting around the house?: Yes Can you handle your own money without help?: Yes During the past 4 weeks, how would you rate your health in general?: poor During the past 4 weeks how have things been going for you?: pretty bad Are you having difficulties driving your car?: no Do you always fasten your seat belt when you are in a car?: yes, usually During past 4 weeks, have you been bothered by the following: never: Trouble eating well?, Teeth or denture problems? and Problems using the telephone?, sometimes: Sexual problems? and often: Falling or dizzy when standing up and Tiredness or fatigue? Have you fallen 2 or more times in the past year?: No Are you afraid of falling?: No Are you a smoker?: yes, and I might quit During the past 4 weeks, how many drinks of wine, beer, or other alcoholic beverages did you have?: no alcohol at all Do you exercise for about 20 minutes 3 or more times a week?: no, I usually do not exercise this much Have you been given information to help with the following?: yes: Hazards in your house that might hurt you? and yes: Keeping track of your medications? How often do you have trouble taking medicines the way you have been told to take them?: I always take medicine as prescribed How confident are you that you can control & manage most of your health problems?: not very confident What is your race?: White Mini Mental State Exam (MMSE) Orientation What is the (year) (season) (date) (day) (month)?: year, season, date, day and month Score Score: 5 Activity of Daily Living Bathing - sponge bath, tub bath or shower: receives no assistance (gets in/out by self, if usual bathing means Dressing - getting clothes from closets & drawers, including inner/outer garments & fasteners.: gets clothes & gets completely dressed without help Toileting - going to the 'toilet room' for urine/bowel elimination & cleaning self/arranging clothes: goes to toilet room, cleans self, arranges clothes without help Transfer: moves in & out of bed and chair without help (may use support object) Continence: controls urination/bowel movements completely by self Feeding: feeds self without help Total Score: 0 Information obtained from: patient Using telephone: independent Traveling: independent Shopping: needs assistance Preparing meals: independent Housework: needs assistance Taking medicine: independent Managing money: independent PHQ-9 Over the last 2 weeks, how often have you been bothered by any of the following problems? 1. Little interest or pleasure in doing things: not at all 2. Feeling down, depressed, or hopeless: several days 3. Trouble falling or staying asleep, or sleeping too much: more than half the days 4. Feeling tired or having little energy: nearly every day 5. Poor appetite or overeating: not at all 6. Feeling bad about yourself - or that you are a failure or have let yourself or your family down: more than half the days 7. Trouble concentrating on things, such as reading the newspaper or watching television: more than half the days 8. Moving or speaking so slowly that other people could have noticed. Or the opposite - being so fidgety or restless that you have been moving around a lot more than usual: not at all 9. Thoughts that you would be better off or of hurting yourself in some way: not at all Total score: 10 Depression Screening Interpretation: Negative 35241 - PHQ-9 Billing: Yes Source: Developed by Drs. King Macias, Mohan Brooks and colleagues, with an educational cosmo from [employer]. COLETTE-7 AMB Questionnaire COLETTE-7 Date COLETTE - 7 assessed: 03/26/22 Source: Developed by Melissa Arzate Kurt Kroenke and colleagues, with an educational cosmo from [employer]. AUDIT C Alcohol Use Questionnaire (AUDIT-C) 1. How often do you have a drink containing alcohol?: Never 3. How often do you have six or more drinks on one occasion?: Never Total Score: 0 Score Reviewed/Action Taken: No Thrive Questionnaire Date Thrive assessed: 03/26/22 Physical Exam Vital Signs: Last Vital Signs Pulse 56 10/01/22 15:47 BP 118/72 10/01/22 15:47 Pulse Ox 97 10/01/22 15:47 Oxygen Delivery Method Room Air 10/01/22 15:47 BMI result Body Mass Index 28.6 Const General: cooperative and no acute distress Orientation/consciousness: patient oriented x3 HEENT Other: Whisper test: pass Eyes General: appearance normal, both eyes and all related structures Resp Effort & Inspection: normal respiratory effort Auscultation: clear to auscultation bilaterally Cardio Rate: regular rate Rhythm: regular rhythm Heart sounds: S1 normal heart sound present and S2 normal heart sound present GI Auscultation: normal bowel sounds Neuro Other: Balance: Normal Get up and walk: unable to Romberg: negative Tandem gait: able to General: patient oriented x3 Assessment & Plan Assessment & Plan (1) Low libido: Code(s): R68.82 - Decreased libido Plan: Will check testosterone level (2) Nonischemic cardiomyopathy: Code(s): I42.8 - Other cardiomyopathies Plan: Continue to follow-up with [facility] (3) COPD (chronic obstructive pulmonary disease): Comment: He has chronic obstructive pulmonary disease secondary to his ongoing smoking. However as per PFT. It is mild and his problem is mostly restrictive lung disease. [place] : ALBUTEROL HFA 2 PUFFS Q 4-6 HOURS P.R.N.. No need to use [employer] . Code(s): J44.9 - Chronic obstructive pulmonary disease, unspecified Plan: Stable Continue to follow-up with [facility] (4) Failed back syndrome, lumbar: Code(s): M96.1 - Postlaminectomy syndrome, not elsewhere classified Plan: Continue to follow-up with [facility] pain [facility] (5) BPH w/o urinary obs/LUTS: Code(s): N40.0 - Benign prostatic hyperplasia without lower urinary tract symptoms Plan: On tamsulosin (6) Hyperlipidemia: Code(s): E78.5 - Hyperlipidemia, unspecified Plan: Continue atorvastatin Patient was encouraged to complete his cholesterol blood work (7) Atherosclerotic cardiovascular disease: Code(s): I25.10 - Atherosclerotic heart disease of [place] coronary artery without angina pectoris Plan: Continue to follow-up with [facility] (8) Adult general medical exam: Code(s): Z00.00 - Encounter for general adult medical examination without abnormal findings Orders: Orders Testosterone, Total Today R68.82 - Decreased libido Quality Reporting (2019) Fall Risk Screening ([facility] 139) Last assessed Fall Risk: 10/01/22 Fall risk assessment: No Falls in past year Depression/Bipolar (159/160/161/177) PHQ-9: Total score: 10 Coding Level of Care Code Medicare First (G0438) Diagnoses Low libido R68.82 Nonischemic cardiomyopathy I42.8 COPD (chronic obstructive pulmonary disease) J44.9 Failed back syndrome, lumbar M96.1 BPH w/o urinary obs/LUTS N40.0 Hyperlipidemia E78.5 Atherosclerotic cardiovascular disease I25.10 Adult general medical exam Z00.00 CPT Codes Advance Care Planning - Time spent: 1-15 minutes, not on file ([id number]) Advance Care Planning Advance Care Planning discussion: Exists, not on file Date of discussion: 10/01/22 Who was present: pt and senior validation engineer Forms completed: Living will and None Time spent: 1-15 minutes, not on file Actual minutes spent: 2 Did not discuss due to Cultural/Spiritual beliefs: No
== END 2022-10-01 16:34 | disposition home or self-care (01) ==
PROVIDERS: PCP Nurse Practitioner Family; Visit Provider Nurse Practitioner Family
DX: Z00.00 Encounter for general adult medical examination without abnormal findings (principal); I42.8 Other cardiomyopathies; J44.9 Chronic obstructive pulmonary disease, unspecified; R68.82 Decreased libido; M96.1 Postlaminectomy syndrome, not elsewhere classified; N40.0 Benign prostatic hyperplasia without lower urinary tract symptoms; E78.5 Hyperlipidemia, unspecified; I25.10 Atherosclerotic heart disease of native coronary artery without angina pectoris
CPT/HCPCS: 1124F; G0438

== ENCOUNTER 2022-10-03 12:44 | Outpatient (REF) | payer MEDICARE, MEDICAID, SELFPAY ==
[2022-10-03 14:45] LABS: Cholesterol 176 mg/dL; HDL Cholesterol 38 mg/dL; LDL Cholesterol Calculated 102 mg/dl; Triglycerides 184 mg/dL
[2022-10-08 11:14] LABS: Testosterone, Total 485 ng/dL (250-1100)
== END 2022-10-03 12:45 | disposition home or self-care (01) ==
LOC: HO.LAB 12:44
PROVIDERS: PCP Nurse Practitioner Family; Visit Provider Nurse Practitioner Family
DX: R68.82 Decreased libido (principal); E55.9 Vitamin D deficiency, unspecified; I25.10 Atherosclerotic heart disease of native coronary artery without angina pectoris; E78.5 Hyperlipidemia, unspecified
CPT/HCPCS: 36415; 80061; 82306; 84403

== ENCOUNTER 2022-10-25 14:53 | Outpatient (AMB) | payer MEDICARE, MEDICAID, SELFPAY ==
--- NOTE | 2022-10-25 15:05 | A.OFFVIS_ITS ---
Intake Intake Visit Reasons: ORTHASTATICS + EKG PER HS Allergies bupropion [From Wellbutrin] Allergy (Intermediate, Verified 10/01/22 16:18) Hives, Rage varenicline [From Chantix] Allergy (Intermediate, Verified 10/01/22 16:18) Agitation, Aggression codeine [Codeine] Allergy (Mild, Verified 10/01/22 16:18) HIVES/ITCHING methadone [Methadone] Allergy (Mild, Verified 10/01/22 16:18) HIVES/ITCHING barium sulfate Allergy (Unknown, Verified 10/01/22 16:18) Unknown Black Pepper-Turmeric Allergy (Unknown, Uncoded 10/01/22 16:18) Unknown [facility] Medical History (Updated 10/01/22 @ 16:40 by YOMAIRA Quiles) Atherosclerotic cardiovascular disease Back pain Cardiac arrest Cardiac defibrillator in place COPD with exacerbation History of TIA (transient ischemic attack) Hyperlipidemia MRSA infection Nonischemic cardiomyopathy Restrictive lung disease Rotator cuff arthropathy of both shoulders Smoker Uncomplicated opioid dependence Surgical History (Updated 10/01/22 @ 16:40 by YOMAIRA Quiles) History of back surgery History of cholecystectomy History of colonoscopy History of repair of left rotator cuff History of repair of right rotator cuff (~05/27/13) Hx of cardiac catheterization Hx of fusion of cervical spine S/P insertion of spinal cord stimulator Status post subacromial decompression (~10/30/17) Family History Mother Multiple sclerosis Father Diabetes Amputat leg, bilat-complicated Sister Lupus Social History Alcohol intake: former Year quit: 2016 Patient Tobacco Use Status: Current everyday Tobacco user Tobacco use type: Cigarette Cigarette Packs Per Day: 0.5 Cigarettes Per Day: 10.0 Years Smoked: 42 e-Cigarette/Vaping Use: Currently Using Cognitive needs: No Hearing needs: No Vision needs: No Coding Diagnoses
[2022-10-25 15:32] VITALS: BP 125/76; PULSE 100
--- NOTE | 2022-10-25 15:32 | AM.OFFVISNUR ---
Intake Vital Signs 10/25/22 15:32 10/25/22 15:33 10/25/22 15:33 Height 6 ft 2 in BP 125/76 126/68 108/72 Blood Pressure Location Lt brachial Lt brachial Lt brachial Position Supine Standing Sitting Pulse 100 126 H 116 H Pulse Source Monitor Pulse Oximeter Pulse Oximeter Intake Visit Reasons: ORTHASTATICS + EKG PER HS Supplier Quality Required: No Accompanied by: Self / Same As Patient Allergies bupropion [From Wellbutrin] Allergy (Intermediate, Verified 10/25/22 15:32) Hives, Rage varenicline [From Chantix] Allergy (Intermediate, Verified 10/25/22 15:32) Agitation, Aggression codeine [Codeine] Allergy (Mild, Verified 10/25/22 15:32) HIVES/ITCHING methadone [Methadone] Allergy (Mild, Verified 10/25/22 15:32) HIVES/ITCHING barium sulfate Allergy (Unknown, Verified 10/25/22 15:32) Unknown Black Pepper-Turmeric Allergy (Unknown, Uncoded 10/25/22 15:32) Unknown Nursing Note Pt was seen in office for orthostatic BPs and EKG. Pt called c/o dizziness and lightheadedness x1 week with fluctuating heart rates confirmed by his daughter Malika who is an RN. Today's EKG shows auto reading of NSR w/ heart rate of 100BPM. Orthostatic BP as recorded in vitals section of his chart. EKG and BPs reviewed by Dian Arias NP. Pt to hold Lisinopril unless systolic BP above 140. Pt advised to increase fluid intake by at least 8oz a day. Pt understood and will call us with an update on Friday. He was advised if symptoms worsen over the weekend to seek ED care. Pt verbalized understanding. Office Procedures EKG [id number], Complete Coding Diagnoses CPT Codes EKG - CPT: 70768-[id number], Complete ([id number])
[2022-10-25 15:33] VITALS: BP 108/72; BP 126/68; PULSE 116; PULSE 126
== END 2022-10-25 15:42 | disposition home or self-care (01) ==
PROVIDERS: PCP Nurse Practitioner Family; Visit Provider Internal Medicine
DX: R94.31 Abnormal electrocardiogram [ECG] [EKG] (principal)
CPT/HCPCS: 93010

== ENCOUNTER → 2022-10-25 14:53 | Outpatient (BNVA) | payer MEDICARE, MEDICAID, SELFPAY | PROVIDERS: PCP Nurse Practitioner Family; Visit Provider Internal Medicine | DX: R42 Dizziness and giddiness (principal) | CPT/HCPCS: 93005 ==

== ENCOUNTER 2022-10-26 11:25 | Outpatient (REF) | payer MEDICARE, MEDICAID, SELFPAY ==
[2022-10-26 13:54] LABS: Anion Gap 13 (12-20); Blood Urea Nitrogen 15 mg/dL (9-16); Calcium 9.8 mg/dL (8.4-10.2); Carbon Dioxide 22 mmol/L (22-29); Chloride 107 mmol/L (96-108); Estimated Glomerular Filt Rate > 60; Glucose Random 90 mg/dL (60-115); Potassium 4.3 mmol/L (3.3-5.1); Sodium 138 mmol/L (135-145)
== END 2022-10-26 11:26 | disposition home or self-care (01) ==
LOC: HO.HMGCLDS 11:25
PROVIDERS: PCP Nurse Practitioner Family; Visit Provider Nurse Practitioner Family
DX: R42 Dizziness and giddiness (principal)
CPT/HCPCS: 36415; 80048

== ENCOUNTER 2022-10-29 05:56 | Outpatient (REF) | payer MEDICARE, MEDICAID, SELFPAY ==
--- NOTE | ~2022-10-29 | FL_ITS ---
EXAMINATION: XR FLUOROSCOPY WITH IMAGES CLINICAL INFORMATION: Post laminectomy syndrome, not elsewhere classified. COMPARISON: None available. TECHNIQUE: Fluoroscopy Supervised By: Dr. Edmond Sheehan. Fluoroscopy Time: 0.1 minute. Cumulative Dose: 3.04 mGy. DAP: 0.0511 Gycm2. Images: 2. FINDINGS: Images demonstrate needle projecting over the right interlaminar spinal canal, question T12-L1 level. FL/FL guidance in treatment room IMPRESSION: Fluoroscopy guidance for pain management procedure
== END 2022-10-29 05:57 | disposition home or self-care (01) ==
LOC: CF 05:56
PROVIDERS: Visit Provider Anesthesiology
DX: Z13.89 Encounter for screening for other disorder (principal)
CPT/HCPCS: J2270

== ENCOUNTER 2022-10-29 08:37 | Outpatient (AMB) | payer MEDICARE, MEDICAID, SELFPAY ==
[2022-10-29 08:44] VITALS: BP 108/64; PULSE 86; RESP 16; O2SAT 98; BMI 28.6
--- NOTE | 2022-10-29 08:44 | MHC.OFFVIS ---
Intake Vital Signs 10/29/22 08:44 10/29/22 09:33 10/29/22 10:53 Height 6 ft 2 in 6 ft 2 in Weight 223 lb 223 lb BMI 28.6 28.6 BP 108/64 110/90 H 98/88 Blood Pressure Location Lt brachial Lt brachial Lt brachial Position Sitting Supine Sitting Respiration 16 18 16 Pulse 86 74 93 Pulse Source Pulse Oximeter Pulse Oximeter Pulse Oximeter Pulse Oximetry (%) 98 98 98 Oxygen Delivery Method Room Air Room Air Room Air Comment Pre-op post-op 45 mins Intake Visit Reasons: ITDD Trial with Morphine/local Allergies bupropion [From Wellbutrin] Allergy (Intermediate, Verified 10/29/22 08:44) Hives, Rage varenicline [From Chantix] Allergy (Intermediate, Verified 10/29/22 08:44) Agitation, Aggression codeine [Codeine] Allergy (Mild, Verified 10/29/22 08:44) HIVES/ITCHING methadone [Methadone] Allergy (Mild, Verified 10/29/22 08:44) HIVES/ITCHING barium sulfate Allergy (Unknown, Verified 10/29/22 08:44) Unknown Black Pepper-Turmeric Allergy (Unknown, Uncoded 10/25/22 15:32) Unknown [facility] Medical History (Updated 10/25/22 @ 17:20 by YAAKOV NelsonC) Atherosclerotic cardiovascular disease Back pain Cardiac arrest Cardiac defibrillator in place COPD with exacerbation History of TIA (transient ischemic attack) Hyperlipidemia MRSA infection Nonischemic cardiomyopathy Restrictive lung disease Rotator cuff arthropathy of both shoulders Smoker Uncomplicated opioid dependence Surgical History (Updated 10/01/22 @ 16:40 by YOMAIRA Quiles) History of back surgery History of cholecystectomy History of colonoscopy History of repair of left rotator cuff History of repair of right rotator cuff (~05/27/13) Hx of cardiac catheterization Hx of fusion of cervical spine S/P insertion of spinal cord stimulator Status post subacromial decompression (~10/30/17) Family History Mother Multiple sclerosis Father Diabetes Amputat leg, bilat-complicated Sister Lupus Social History Alcohol intake: former Year quit: 2016 Patient Tobacco Use Status: Current everyday Tobacco user Tobacco use type: Cigarette Cigarette Packs Per Day: 0.5 Cigarettes Per Day: 10.0 Years Smoked: 42 e-Cigarette/Vaping Use: Currently Using Cognitive needs: No Hearing needs: No Vision needs: No Physical Exam Vital Signs: Last Vital Signs Pulse 93 10/29/22 10:53 Resp 16 10/29/22 10:53 BP 98/88 10/29/22 10:53 Pulse Ox 98 10/29/22 10:53 Oxygen Delivery Method Room Air 10/29/22 10:53 BMI result Body Mass Index 28.6 Assessment & Plan Assessment & Plan (1) Failed back syndrome, lumbar: Code(s): M96.1 - Postlaminectomy syndrome, not elsewhere classified (2) Failed back syndrome, cervical: Code(s): M96.1 - Postlaminectomy syndrome, not elsewhere classified (3) Chronic pain syndrome: Code(s): G89.4 - Chronic pain syndrome Plan: Intrathecal pain pump trial Informed consent was explained to the patient. All questions were explained and answered.? The patient was taken inside of the operating room where he was positioned prone on the operating table.? Time-out was performed delineating patient's name and date of , correct site, side, the nature of the procedure, patient's allergy, preoperative antibiotic if needed.? All operating room staff And the patient were participating in OR time-out procedure. ?the patient's lower back was prepped with ChloraPrep and draped with sterile? utility draped.? Sterilely draped C-arm was brought over the operating field and sq picture of? lumbar vertebrae were delineated on the screen. the target of needle insertion was chosen between L2 and L3 vertebrae. extensive hardware in the patient's L4-5 and S1 lower back was noted.? The projection of the right lamina of the L2 vertebra was chosen as the starting point of the injection.? 22 gauge 3-1/2 inch whittackre needle was inserted through the skin after skin wheal was raised with lidocaine 2%.? The needle was directed to the interlaminar space.? The advancement of the needle was performed on intermittent anterior posterior and lateral views.? On anterior posterior view needle was keppped strictly in the midline.? On the lateral view needle entered in the projection of the center of the spinal canal.? At that moment the stylet was removed from the needle and clear flow CSF was detected in the needle hub.? After that ? 0.7mL solution containing 70 micro g of Morphine Sulfate preservative free was injected into the needle. After that needle was removed sterile dressing was applied.? Patient tolerated procedure well.? He was taking outside of the operating room to the recovery room where he recovered uneventfully Orders: Orders FL guidance in treatment room Today G89.4 - Chronic pain syndrome, M96.1 - Postlaminectomy syndrome, not elsewhere classified Coding Level of Care Code Procedure Only Diagnoses Failed back syndrome, lumbar M96.1 Failed back syndrome, cervical M96.1 Chronic pain syndrome G89.4
[2022-10-29 09:33] VITALS: BP 110/90; PULSE 74; RESP 18; O2SAT 98; BMI 28.6
[2022-10-29 10:53] VITALS: BP 98/88; PULSE 93; RESP 16; O2SAT 98
== END 2022-10-29 10:28 | disposition home or self-care (01) ==
PROVIDERS: PCP Nurse Practitioner Family; Visit Provider Anesthesiology
DX: M96.1 Postlaminectomy syndrome, not elsewhere classified (principal); G89.4 Chronic pain syndrome
CPT/HCPCS: 62323

== ENCOUNTER 2022-10-29 20:03 | Emergency (ER) | payer MEDICARE, MEDICAID, SELFPAY ==
[2022-10-29 20:25] VITALS: BP 129/77; PULSE 92; RESP 16; TEMP 36.9; O2SAT 95; BMI 28.8
[2022-10-29] MEDS: Lidocaine HCl 2 % Urojet 10 ML JEL.PF.APP TOPICAL ×2 (21:31→21:32)
--- NOTE | 2022-10-29 21:51 | ED.GENADULT ---
HPI - General Adult General Chief complaint: General Medical Stated complaint: cant use bathroom Time Seen by Provider: 10/29/22 21:14 History of Present Illness HPI narrative: Patient is a 52-year-old male with a history urinary retention in the past. Is currently on Flomax. Patient received some narcotic morphine for his back pain. Complaining of unable to urinate all day. Presented to the emergency department for further evaluation. No history of kidney problems. Positive history of coronary artery disease. Status post pacemaker defibrillator. No fever no chills. No pain on urination. Patient is from home. History of COPD. Related Data Home Medications Medication Instructions Recorded Confirmed aspirin 81 mg tablet,delayed 81 mg PO DAILY 02/12/22 10/01/22 release (Adult Low Dose Aspirin) nitroglycerin 0.4 mg sublingual 0.4 mg sublingual Q5M PRN Chest 03/18/22 10/01/22 tablet Pain albuterol sulfate 90 mcg/actuation 2 puff inhalation Q4-6H PRN 03/26/22 10/01/22 aerosol inhaler (Ventolin HFA) Wheezing Previous Rx's Medication Instructions Recorded atorvastatin 80 mg tablet 80 mg PO DAILY #90 tabs 04/01/22 lisinopril 5 mg tablet 5 mg PO DAILY #90 tabs 04/01/22 spironolactone 25 mg tablet 25 mg PO DAILY #90 tabs 04/01/22 naloxone 4 mg/actuation nasal spray 4 mg intranasal Q3M PRN opioid 06/11/22 overdose 1 day #2 ea cholecalciferol (vitamin D3) 50 50 mcg PO DAILY #90 tabs 07/03/22 mcg (2,000 unit) tablet carvedilol 3.125 mg tablet 3.125 mg PO BID 90 days #180 tabs 07/04/22 tamsulosin 0.4 mg capsule (Flomax) 0.4 mg PO DAILY #90 caps 07/14/22 Allergies Allergy/AdvReac Type Severity Reaction Status Date / Time bupropion [From Wellbutrin] Allergy Intermediate Hives, Rage Verified 10/29/22 08:44 varenicline [From Chantix] Allergy Intermediate Agitation, Verified 10/29/22 08:44 Aggression codeine [Codeine] Allergy Mild HIVES/ITCHI Verified 10/29/22 08:44 NG methadone [Methadone] Allergy Mild HIVES/ITCHI Verified 10/29/22 08:44 NG barium sulfate Allergy Unknown Unknown Verified 10/29/22 08:44 Black Pepper-Turmeric Allergy Unknown Unknown Uncoded 10/25/22 15:32 Review of Systems Review of Systems: Positive unable to urinate Yes all other systems are reviewed and are negative [facility] Past Medical History Attestation statement: The following information was validated with the patient. Medical History Atherosclerotic cardiovascular disease Back pain Cardiac arrest Cardiac defibrillator in place COPD with exacerbation History of TIA (transient ischemic attack) Hyperlipidemia MRSA infection Nonischemic cardiomyopathy Restrictive lung disease Rotator cuff arthropathy of both shoulders Smoker Uncomplicated opioid dependence Surgical History History of back surgery History of cholecystectomy History of colonoscopy History of repair of left rotator cuff History of repair of right rotator cuff (~05/27/13) Hx of cardiac catheterization Hx of fusion of cervical spine S/P insertion of spinal cord stimulator Status post subacromial decompression (~10/30/17) Family History Family History Mother Multiple sclerosis Father Diabetes Amputat leg, bilat-complicated Sister Lupus Social History Social History Alcohol intake: former Year quit: 2016 Patient Tobacco Use Status: Current everyday Tobacco user Tobacco use type: Cigarette Cigarette Packs Per Day: 0.5 Cigarettes Per Day: 10.0 Years Smoked: 42 e-Cigarette/Vaping Use: Currently Using Advance Directives: No Advance Directives Information Provided: Yes Cognitive needs: No Hearing needs: No Vision needs: No Physical Exam ED Vital Signs: Vital Signs - 24 hr 10/29/22 20:25 10/29/22 22:19 Temperature 98.5 F 98.8 F Pulse Rate 92 92 Respiratory Rate 16 16 Blood Pressure 129/77 124/76 Pulse Oximetry 95 98 Oxygen Delivery Method Room Air Room Air BMI result Body Mass Index 28.8 Appearance: Alert. Oriented X3. No acute distress. Eyes: Pupils equal, round and reactive to light. ENT: Pharynx normal. Neck: Normal inspection. Neck supple. No lymph nodes noted. No crepitus CVS: Normal heart rate and rhythm. Pulses normal. Normal S1 and S2 Respiratory: No respiratory distress. Breath sounds normal. No Wheezing. No rales Abdomen: Soft and nontender. No rigidity. No distention. good BS x4 Skin: Skin warm and dry. Normal skin color. Normal skin turgor. Extremities: No lower extremity edema. Neurovascular intact to all extremities. No Lacerations. No Rash Neuro: Oriented X 3. No motor deficit. No sensory deficit. Moving all extermities. No slurred speech Medications Administered Discontinued Medications Generic Name Dose Route Start Last Admin Trade Name Kenia PRN Reason Stop Dose Admin Lidocaine HCl 10 ml 10/29/22 21:14 10/29/22 21:31 Lidocaine Hcl 2 % Urojet 10 Ml Jel.Pf.Jeannie TOPICAL 10/29/22 21:15 10 ml ONCE ONE Administration Lidocaine HCl 10 ml 10/29/22 21:14 10/29/22 21:32 Lidocaine Hcl 2 % Urojet 10 Ml Jel.Pf.Jeannie TOPICAL 10/29/22 21:15 10 ml ONCE ONE Administration Medical Decision Making Medical Decision Making MDM Narrative: Patient's bladder scan showed over 500 cc of urine. Nursing attempted Otto catheter but failed. I attempted to put in a Otto catheter after the penis was thoroughly cleaned with Betadine. A 16 Qatari coude was placed. Positive drainage of urine. The balloon was cupped up to 10 cc. Over 500 cc of urine was drained. Symptomatically patient is completely relieved. Will discharge patient home. In stable condition. Differential Diagnosis Urinary retention secondary to narcotic use External Record Review External record reviewed: Inpatient record Chronic Conditions Patient?s care impacted by: Hypertension Coronary artery disease. Urinary retention Discharge Plan Discharge Clinical Impression: Acute urinary retention Patient Disposition: Home, Self-Care Instructions: Urinary Retention in Men (ED) Prescriptions: No Action aspirin [Adult Low Dose Aspirin] 81 mg tablet,delayed release (DR/EC) 81 mg PO DAILY lisinopril 5 mg tablet 5 mg PO DAILY Qty: 90 3RF spironolactone 25 mg tablet 25 mg PO DAILY Qty: 90 3RF atorvastatin 80 mg tablet 80 mg PO DAILY Qty: 90 3RF Rx Instructions: Increase in dose cholecalciferol (vitamin D3) 50 mcg (2,000 unit) tablet 50 mcg PO DAILY Qty: 90 3RF carvedilol 3.125 mg tablet 3.125 mg PO BID 90 Days Qty: 180 3RF Rx Instructions: must administer with a meal/food tamsulosin [Flomax] 0.4 mg capsule 0.4 mg PO DAILY Qty: 90 0RF albuterol sulfate [Ventolin HFA] 90 mcg/actuation HFA aerosol inhaler 2 puff inhalation Q4-6H PRN (Reason: Wheezing) nitroglycerin 0.4 mg tablet, sublingual 0.4 mg sublingual Q5M PRN (Reason: Chest Pain) Rx Instructions: do not exceed 3 doses per episode naloxone 4 mg/actuation spray,non-aerosol 4 mg intranasal Q3M PRN (Reason: opioid overdose) 1 Days Qty: 2 3RF Rx Instructions: spray 1 dose into ONE nostril; alternate nostrils w each dose. May repeat with more refills if symptoms persisted. Referrals: Arnulfo Mary MD [Physician] - 10/31/22
[2022-10-29 22:19] VITALS: BP 124/76; PULSE 92; RESP 16; TEMP 37.1; O2SAT 98
== END 2022-10-29 22:41 | disposition home or self-care (01) ==
PROVIDERS: Emergency Provider Emergency Medicine Emergency Medical Services
DX: R33.9 Retention of urine, unspecified (principal); M54.50 Low back pain, unspecified; F17.210 Nicotine dependence, cigarettes, uncomplicated; Z71.6 Tobacco abuse counseling; Z79.899 Other long term (current) drug therapy
CPT/HCPCS: 51798; 62323; 99284; J2270

== ENCOUNTER 2022-10-31 08:30 | Outpatient (AMB) | payer MEDICARE, MEDICAID, SELFPAY ==
--- NOTE | 2022-10-31 08:34 | MHC.OFFVIS ---
Intake Vital Signs 10/31/22 08:40 Height 6 ft 2 in Weight 220 lb BMI 28.2 BP 110/82 Blood Pressure Location Lt brachial Position Sitting Respiration 16 Pulse 102 H Pulse Source Pulse Oximeter Pulse Oximetry (%) 98 Oxygen Delivery Method Room Air Intake Visit Reasons: ITDD Trial with Morphine 10/29/22 Intake Note: patient comes in for post-op. Allergies bupropion [From Wellbutrin] Allergy (Intermediate, Verified 10/31/22 08:40) Hives, Rage varenicline [From Chantix] Allergy (Intermediate, Verified 10/31/22 08:40) Agitation, Aggression codeine [Codeine] Allergy (Mild, Verified 10/31/22 08:40) HIVES/ITCHING methadone [Methadone] Allergy (Mild, Verified 10/31/22 08:40) HIVES/ITCHING barium sulfate Allergy (Unknown, Verified 10/31/22 08:40) Unknown Black Pepper-Turmeric Allergy (Unknown, Uncoded 10/25/22 15:32) Unknown HPI HPI Comments History of Present Illness Details Daniel is? 51 years old gentleman who is in my office after the trial pain pump with morphine. He again reported urinary retention and itching sensation. Although it was not as pronounced and as severe as situation with hydromorphone trial it is still significant side effects which would prevent me to do the implantation of the pain pump with morphine. The patient reports that he has enlarged prostate. I recommended him to see a neurologist as soon as possible. I am planning to do a trial with bupivacaine this time. I will inject about 2 mg of bupivacaine into his spinal canal next time. I warned him that he still can developed urinary retention, however the itching is unlikely after this procedure. Prior: Trial of Nevro spinal cord stimulator.? He receives is spinal cord stimulator trial on 06/28/2022.? He forgot to take his antibiotics during the trial time.? Fortunately his dressing changed today is uneventful.? No pathological discharge, no tenderness on palpation, no redness.? He reports that Nevro spinal cord stimulator did not at all affect his pain.? He is going to a shoulder surgery with Dr. Reece.? After that he is going to come back for the repeated trial we decided to try morphine this time.? I need him to be 3 days without opioid medications when we will try morphine.? We will do moderate doses probably 140-150 micro g of morphine intrathecally.? The anchoring sutures were severed with scalp all and the leads were removed.? The tips were intact. Previous trial? of intrathecal drug delivery system pain pump.? He received 90 micro g of hydromorphone intrathecally.? He reported urine retention as a complication of the trial he also reported significant nausea and vomiting 5 hours after the trial.? He reported itching after the trial.? He reported that he had a pain relief for about 6 hours after the trial 100%.? After that the pain started slowly to return.? By the next morning after the trial he had pain severe enough for him unable to rest.? Today's after the trial he went to emergency room because his pain was unbearable and 10 of out of 10.? The patient was sent to CT scan which demonstrated no possible hematoma which could explain some of the side effects.? The physical exam on the emergency room also was not supportive of hematoma.? The patient was given oxycodone 5 mg q.6 hours for next 6 days and was released.? We discussed the situation.? He is scheduled for trial of SCS Nevro.? He is requesting me short script of the opioids for him to temporize the pain until the trial.? I will give him 7 days worse of script 28 pills until the trial.? Depending on the results of SCS Nevro trial decision will be made whether to proceed with I DDD intrathecal cervical or SCS Nevro cervical placement.? We actually again can try both.? Patient understood well. Prior: Patient is suffering from postlaminectomy syndrome of cervical as well as postlaminectomy syndrome lumbar spin PFSH Medical History Atherosclerotic cardiovascular disease Back pain Cardiac arrest Cardiac defibrillator in place COPD with exacerbation History of TIA (transient ischemic attack) Hyperlipidemia MRSA infection Nonischemic cardiomyopathy Restrictive lung disease Rotator cuff arthropathy of both shoulders Smoker Uncomplicated opioid dependence Surgical History History of back surgery History of cholecystectomy History of colonoscopy History of repair of left rotator cuff History of repair of right rotator cuff (~05/27/13) Hx of cardiac catheterization Hx of fusion of cervical spine S/P insertion of spinal cord stimulator Status post subacromial decompression (~10/30/17) Family History Mother Multiple sclerosis Father Diabetes Amputat leg, bilat-complicated Sister Lupus Social History Alcohol intake: never Patient Tobacco Use Status: Current everyday Tobacco user Tobacco use type: Cigarette Cigarette Packs Per Day: 0.5 Cigarettes Per Day: 10.0 Years Smoked: 42 e-Cigarette/Vaping Use: Currently Using Cognitive needs: No Hearing needs: No Vision needs: No Review of Systems Const All systems reviewed & are unremarkable except as noted in HPI and below Physical Exam Const General: cooperative and no acute distress Orientation/consciousness: patient oriented x3 HEENT Other: Whisper test: pass Eyes General: appearance normal, both eyes and all related structures Resp Effort & Inspection: normal respiratory effort Auscultation: clear to auscultation bilaterally Cardio Rate: regular rate Rhythm: regular rhythm Heart sounds: S1 normal heart sound present and S2 normal heart sound present GI Auscultation: normal bowel sounds Neuro Other: Balance: Normal Get up and walk: unable to Romberg: negative Tandem gait: able to General: patient oriented x3 Assessment & Plan Assessment & Plan (1) Failed back syndrome, lumbar: Code(s): M96.1 - Postlaminectomy syndrome, not elsewhere classified (2) Failed back syndrome, cervical: Code(s): M96.1 - Postlaminectomy syndrome, not elsewhere classified (3) Chronic pain syndrome: Code(s): G89.4 - Chronic pain syndrome Plan Plan of care is as above. Nevro SCS trial resulted in no pain improvement at all. Two trials of intrathecal pain pump 1 with 90 micro g of Dilaudid and 70 micro g of morphine (greatly reduced dose of morphine ) resulted in urinary retention and itching. Patient has enlarged prostate. It can be predicted that he will develop urinary retention on minimal changes in spinal canal medication. I do not mind to try bupivacaine trial 2 mg intrathecally and I will schedule him for this trial however he needs to see a urologist as soon as possible and may receive some treatment for enlarged prostate which are better than Flomax he receiving at this time. Dilaudid pump resulted in 3 different side effects including itching, urine retention, nausea and vomiting. It was 90 micro g of Dilaudid injected in the CSF. Next time morphine trial will be probably 140-150 micro g of morphine. He is interested in chronic opioid prescription. I told him that this probably would not happen any time soon in this office. I recommended him to seek the chronic opioid therapy with a PCP office. Coding Level of Care Code Est Pt Level 3 (83893) Diagnoses Failed back syndrome, lumbar M96.1 Failed back syndrome, cervical M96.1 Chronic pain syndrome G89.4
[2022-10-31 08:40] VITALS: BP 110/82; PULSE 102; RESP 16; O2SAT 98; BMI 28.2
== END 2022-10-31 08:50 | disposition home or self-care (01) ==
PROVIDERS: PCP Nurse Practitioner Family; Visit Provider Anesthesiology
DX: M96.1 Postlaminectomy syndrome, not elsewhere classified (principal); G89.4 Chronic pain syndrome
CPT/HCPCS: 99213

== ENCOUNTER → 2022-10-31 08:30 | Outpatient (BNVA) | payer MEDICARE, MEDICAID, SELFPAY | PROVIDERS: PCP Nurse Practitioner Family; Visit Provider Anesthesiology | DX: G89.4 Chronic pain syndrome (principal); M96.1 Postlaminectomy syndrome, not elsewhere classified | CPT/HCPCS: 99212 ==

== ENCOUNTER → 2022-11-11 23:59 | Outpatient (BNV) | payer MEDICARE, MEDICAID, SELFPAY ==
--- NOTE | 2022-11-16 14:12 | A.OFFVIS_ITS ---
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 Allergies bupropion [From Wellbutrin] Allergy (Intermediate, Verified 10/31/22 08:40) Hives, Rage varenicline [From Chantix] Allergy (Intermediate, Verified 10/31/22 08:40) Agitation, Aggression codeine [Codeine] Allergy (Mild, Verified 10/31/22 08:40) HIVES/ITCHING methadone [Methadone] Allergy (Mild, Verified 10/31/22 08:40) HIVES/ITCHING barium sulfate Allergy (Unknown, Verified 10/31/22 08:40) Unknown Black Pepper-Turmeric Allergy (Unknown, Uncoded 10/25/22 15:32) Unknown [facility] Medical History Atherosclerotic cardiovascular disease Back pain Cardiac arrest Cardiac defibrillator in place COPD with exacerbation History of TIA (transient ischemic attack) Hyperlipidemia MRSA infection Nonischemic cardiomyopathy Restrictive lung disease Rotator cuff arthropathy of both shoulders Smoker Uncomplicated opioid dependence Surgical History History of back surgery History of cholecystectomy History of colonoscopy History of repair of left rotator cuff History of repair of right rotator cuff (~05/27/13) Hx of cardiac catheterization Hx of fusion of cervical spine S/P insertion of spinal cord stimulator Status post subacromial decompression (~10/30/17) Family History Mother Multiple sclerosis Father Diabetes Amputat leg, bilat-complicated Sister Lupus Social History Alcohol intake: never Patient Tobacco Use Status: Current everyday Tobacco user Tobacco use type: Cigarette Cigarette Packs Per Day: 0.5 Cigarettes Per Day: 10.0 Years Smoked: 42 e-Cigarette/Vaping Use: Currently Using Cognitive needs: No Hearing needs: No Vision needs: No Office Procedures Cardiac Device Check Cardiac Device Check Details: Date of service 11/11/2022; Battery life 12 years; normal lead parameters; no treated VT/VF; ; normal ICD function. [id number] Cardiac Interrogation, implant defibrillator w/interim Procedure code (CPT) selection complete Assessment & Plan Assessment & Plan (1) Cardiac arrest: Code(s): I46.9 - Cardiac arrest, cause unspecified Coding Level of Care Code Procedure Only Diagnoses Cardiac arrest I46.9 CPT Codes Cardiac Device Check - Cardiac Device 13: [id number] Cardiac Interrogation, implant defibrillator w/interim ([id number])
== END ==
PROVIDERS: PCP Nurse Practitioner Family; Visit Provider Internal Medicine
DX: I46.9 Cardiac arrest, cause unspecified (principal); Z95.810 Presence of automatic (implantable) cardiac defibrillator
CPT/HCPCS: 93295

== ENCOUNTER 2022-11-26 06:01 | Outpatient (REF) | payer MEDICARE, MEDICAID, SELFPAY ==
--- NOTE | ~2022-11-26 | FL_ITS ---
EXAMINATION: XR FLUOROSCOPY WITH IMAGES CLINICAL INFORMATION: Chronic pain syndrome. ITDD trial. COMPARISON: None available. TECHNIQUE: Fluoroscopy Supervised By: Dr. Edmond Sheehan. Fluoroscopy Time: 0.1 minute. Cumulative Dose: 2.44 mGy. DAP: 0.0425 Gycm2. Images: 2. FINDINGS: Images demonstrate needle placement projecting over the right interlaminar lumbar spinal canal. FL/FL guidance in treatment room IMPRESSION: Fluoroscopy guidance for pain management procedure.
== END 2022-11-26 06:02 | disposition home or self-care (01) ==
LOC: CF 06:01
PROVIDERS: Visit Provider Anesthesiology
DX: M96.1 Postlaminectomy syndrome, not elsewhere classified (principal); G89.4 Chronic pain syndrome
CPT/HCPCS: 62323

== ENCOUNTER 2022-11-26 09:36 | Outpatient (AMB) | payer MEDICARE, MEDICAID, SELFPAY ==
--- NOTE | 2022-11-26 09:39 | MHC.OFFVIS ---
Intake Vital Signs 11/26/22 09:40 11/26/22 11:19 11/26/22 11:21 Height 6 ft 2 in 6 ft 2 in 6 ft 2 in Weight 220 lb 220 lb 220 lb BMI 28.2 28.2 28.2 BP 108/68 102/60 110/74 Blood Pressure Location Lt brachial Rt brachial Lt brachial Position Supine Sitting Sitting Respiration 16 16 16 Pulse 92 90 87 Pulse Source Pulse Oximeter Pulse Oximeter Pulse Oximeter Pulse Oximetry (%) 98 97 97 Oxygen Delivery Method Room Air Room Air Room Air Comment pre-op post-op 11 am Intake Visit Reasons: ITDD TRIAL WITH BUPI/LOCAL Allergies bupropion [From Wellbutrin] Allergy (Intermediate, Verified 11/26/22 09:41) Hives, Rage varenicline [From Chantix] Allergy (Intermediate, Verified 11/26/22 09:41) Agitation, Aggression codeine [Codeine] Allergy (Mild, Verified 11/26/22 09:41) HIVES/ITCHING methadone [Methadone] Allergy (Mild, Verified 11/26/22 09:41) HIVES/ITCHING barium sulfate Allergy (Unknown, Verified 11/26/22 09:41) Unknown Black Pepper-Turmeric Allergy (Unknown, Uncoded 10/25/22 15:32) Unknown [facility] Medical History Atherosclerotic cardiovascular disease Back pain Cardiac arrest Cardiac defibrillator in place COPD with exacerbation History of TIA (transient ischemic attack) Hyperlipidemia MRSA infection Nonischemic cardiomyopathy Restrictive lung disease Rotator cuff arthropathy of both shoulders Smoker Uncomplicated opioid dependence Surgical History History of back surgery History of cholecystectomy History of colonoscopy History of repair of left rotator cuff History of repair of right rotator cuff (~05/27/13) Hx of cardiac catheterization Hx of fusion of cervical spine S/P insertion of spinal cord stimulator Status post subacromial decompression (~10/30/17) Family History Mother Multiple sclerosis Father Diabetes Amputat leg, bilat-complicated Sister Lupus Social History Alcohol intake: never Patient Tobacco Use Status: Current everyday Tobacco user Tobacco use type: Cigarette Cigarette Packs Per Day: 0.5 Cigarettes Per Day: 10.0 Years Smoked: 42 e-Cigarette/Vaping Use: Currently Using Cognitive needs: No Hearing needs: No Vision needs: No Physical Exam Vital Signs: Last Vital Signs Pulse 87 11/26/22 11:21 Resp 16 11/26/22 11:21 BP 110/74 11/26/22 11:21 Pulse Ox 97 11/26/22 11:21 Oxygen Delivery Method Room Air 11/26/22 11:21 BMI result Body Mass Index 28.2 Assessment & Plan Assessment & Plan (1) Failed back syndrome, lumbar: Code(s): M96.1 - Postlaminectomy syndrome, not elsewhere classified (2) Failed back syndrome, cervical: Code(s): M96.1 - Postlaminectomy syndrome, not elsewhere classified (3) Chronic pain syndrome: Code(s): G89.4 - Chronic pain syndrome Plan: Intrathecal pain pump trial Informed consent was explained to the patient. All questions were explained and answered.? The patient was taken inside of the operating room where he was positioned prone on the operating table.? Time-out was performed delineating patient's name and date of , correct site, side, the nature of the procedure, patient's allergy, preoperative antibiotic if needed.? All operating room staff And the patient were participating in OR time-out procedure. ?the patient's lower back was prepped with ChloraPrep and draped with sterile? utility draped.? Sterilely draped C-arm was brought over the operating field and sq picture of? lumbar vertebrae were delineated on the screen. the target of needle insertion was chosen between L2 and L3 vertebrae. extensive hardware in the patient's L4-5 and S1 lower back was noted.? The projection of the right lamina of the L2 vertebra was chosen as the starting point of the injection.? 22 gauge 3-1/2 inch whittackre needle was inserted through the skin after skin wheal was raised with lidocaine 2%.? The needle was directed to the interlaminar space.? The advancement of the needle was performed on intermittent anterior posterior and lateral views.? On anterior posterior view needle was keppped strictly in the midline.? On the lateral view needle entered in the projection of the center of the spinal canal.? At that moment the stylet was removed from the needle and clear flow CSF was detected in the needle hub.? After that ? 0.8mL solution containing 2 mg bupivacaine was injected into the needle. After that needle was removed sterile dressing was applied.? Patient tolerated procedure well.? He was taken outside of the operating room to the recovery room where he recovered uneventfully. Orders: Orders FL guidance in treatment room Today G89.4 - Chronic pain syndrome Coding Level of Care Code Procedure Only Diagnoses Failed back syndrome, lumbar M96.1 Failed back syndrome, cervical M96.1 Chronic pain syndrome G89.4
[2022-11-26 09:40] VITALS: BP 108/68; PULSE 92; RESP 16; O2SAT 98; BMI 28.2
[2022-11-26 11:19] VITALS: BP 102/60; PULSE 90; RESP 16; O2SAT 97; BMI 28.2
[2022-11-26 11:21] VITALS: BP 110/74; PULSE 87; RESP 16; O2SAT 97; BMI 28.2
== END 2022-11-26 11:11 | disposition home or self-care (01) ==
LOC: HO.PMCPRC 09:36
PROVIDERS: PCP Nurse Practitioner Family; Visit Provider Anesthesiology
DX: M96.1 Postlaminectomy syndrome, not elsewhere classified (principal); G89.4 Chronic pain syndrome
CPT/HCPCS: 62323

== ENCOUNTER 2022-11-27 12:45 | Outpatient (AMB) | payer MEDICARE, MEDICAID, SELFPAY ==
[2022-11-27 12:49] VITALS: BP 110/70; PULSE 76; BMI 29.0
--- NOTE | 2022-11-27 12:49 | MHC.OFFVIS ---
Intake Vital Signs 11/27/22 12:49 Height 6 ft 2 in Weight 225 lb 12.054 oz BMI 29.0 BP 110/70 Blood Pressure Location Lt brachial Position Sitting Pulse 76 Intake Visit Reasons: 6 mth fu Intake Note: 6 month follow up Case Advocate Required: No Accompanied by: Self / Same As Patient Allergies bupropion [From Wellbutrin] Allergy (Intermediate, Verified 11/27/22 12:51) Hives, Rage varenicline [From Chantix] Allergy (Intermediate, Verified 11/27/22 12:51) Agitation, Aggression codeine [Codeine] Allergy (Mild, Verified 11/27/22 12:51) HIVES/ITCHING methadone [Methadone] Allergy (Mild, Verified 11/27/22 12:51) HIVES/ITCHING barium sulfate Allergy (Unknown, Verified 11/27/22 12:51) Unknown Black Pepper-Turmeric Allergy (Unknown, Uncoded 11/27/22 12:51) Unknown Medication List - Last Reconciled 11/27/22 by Gunnar Tate MD albuterol sulfate 90 mcg/actuation (Ventolin HFA) 2 puffs inhalation Q4-6H PRN aspirin (Adult Low Dose Aspirin) 81 mg PO DAILY atorvastatin 80 mg PO DAILY carvedilol 3.125 mg PO BID 90 days cholecalciferol (vitamin D3) 50 mcg PO DAILY lisinopril 5 mg PO DAILY naloxone 4 mg/actuation 4 mg intranasal Q3M PRN nitroglycerin 0.4 mg sublingual Q5M PRN spironolactone 25 mg PO DAILY HPI HPI Comments History of Present Illness Details Daniel returns for follow-up. He carries a diagnosis of nonischemic cardiomyopathy. He was maintained on Coreg and lisinopril. Then he went to half-way. While in half-way he had a cardiac arrest-2019. Described as VT/VF. Then it seems that he was diagnosed with STEMI and underwent cardiac catheterization but there was no culprit lesion. Had ICD placed. Overall, doing fine. Occasionally feels dizzy. We tried to cut back on his meds but now he is back on them. Sometimes he may feel slight heart racing but transient. Otherwise, no angina or anything cardiac sounding. [facility] Medical History Atherosclerotic cardiovascular disease Back pain Cardiac arrest Cardiac defibrillator in place COPD with exacerbation History of TIA (transient ischemic attack) Hyperlipidemia MRSA infection Nonischemic cardiomyopathy Restrictive lung disease Rotator cuff arthropathy of both shoulders Smoker Uncomplicated opioid dependence Surgical History History of colonoscopy History of repair of left rotator cuff S/P insertion of spinal cord stimulator Hx of fusion of cervical spine Hx of cardiac catheterization Status post subacromial decompression (~10/30/17) History of repair of right rotator cuff (~05/27/13) History of cholecystectomy History of back surgery Family History Mother Multiple sclerosis Father Diabetes Amputat leg, bilat-complicated Sister Lupus Social History Alcohol intake: never Patient Tobacco Use Status: Current everyday Tobacco user Tobacco use type: Cigarette Cigarette Packs Per Day: 0.5 Cigarettes Per Day: 10.0 Years Smoked: 42 e-Cigarette/Vaping Use: Currently Using Cognitive needs: No Hearing needs: No Vision needs: No Review of Systems Const Denies weakness ENT Denies dizziness Card Denies chest pain, Denies chest pain with activity, Denies syncope, Denies rapid heart rate, Denies pedal edema, Denies edema, Denies leg edema, Denies lightheadedness, Denies palpitations, Denies dyspnea, Denies dyspnea on exertion and Denies orthopnea Resp Denies cough, Denies dyspnea and Denies dyspnea on exertion GI Denies hematochezia and Denies change in stool character Musc Denies abnormal gait, Denies muscle cramps, Denies muscle weakness, Denies numbness, Denies radiating pain into limb and Denies tingling Neuro Denies abnormal gait, Denies dizziness, Denies syncope, Denies numbness, Denies tingling and Denies weakness Endo Denies palpitations Physical Exam Vital Signs: Last Vital Signs Pulse 76 11/27/22 12:49 BP 110/70 11/27/22 12:49 BMI result Body Mass Index 29.0 Const General: comfortable and no acute distress Orientation/consciousness: patient oriented x3 HEENT Other: Unremarkable Head: Yes normal to inspection Neck Neck: Yes normal visual inspection Chest Chest palpation & inspection: normal inspection of the chest Resp Auscultation: clear to auscultation bilaterally Cardio Palpation: normal PMI Heart sounds: S1 normal heart sound present, S2 normal heart sound present, no gallops, no murmurs and no rubs GI Palpation (GI): Soft to palpation Back/Spine/Pelvis Other: unremarkable Skin General skin exam: no rashes or lesions noted Neuro General: patient oriented x3 Extrem General: Yes normal to inspection Psych Mental Status: mental status grossly normal Assessment & Plan Assessment & Plan (1) Nonischemic cardiomyopathy: Code(s): I42.8 - Other cardiomyopathies Plan: In the last echocardiogram, LVEF 35-40%. In a prior study from 2019, 30-35%. Has been as low as 15-20% the past. Clinically, no heart failure symptoms or signs. Continue carvedilol, lisinopril, spironolactone. If he repeatedly gets dizzy or has low blood pressure issues, will need to cut back. (2) Atherosclerotic cardiovascular disease: Code(s): I25.10 - Atherosclerotic heart disease of [place] coronary artery without angina pectoris Plan: Cardiac catheterization from 2021- normal left main; LAD 40-50% ostial stenosis; RCA 30-40% stenosis in the proximal part of PLV; otherwise unremarkable. No angina. Continue aspirin and statins. Lipids still on the higher side but much better than the initial level. There is also lots of dietary indiscretion and patient admits to that today. If able, cut back on junk foods. (3) Cardiac arrest: Code(s): I46.9 - Cardiac arrest, cause unspecified Plan: Resuscitated. Status post ICD for secondary prevention. Orders: Orders CA echo transthoracic complete 6 Months I42.8 - Other cardiomyopathies Medications: Changed From naloxone 4 mg/actuation spray 1 dose into ONE nostril; alternate nostrils w each dose. May repeat with more refills if symptoms persisted. 4 mg intranasal Q3M 1 day PRN 2 ea 3RF opioid overdose To naloxone 4 mg/actuation spray 1 dose into ONE nostril; alternate nostrils w each dose. May repeat with more refills if symptoms persisted. 4 mg intranasal Q3M PRN Coding Level of Care Code Est Pt Level 4 (96251) Diagnoses Nonischemic cardiomyopathy I42.8 Atherosclerotic cardiovascular disease I25.10 Cardiac arrest I46.9
== END 2022-11-27 13:10 | disposition home or self-care (01) ==
PROVIDERS: PCP Nurse Practitioner Family; Visit Provider Internal Medicine
DX: I42.8 Other cardiomyopathies (principal); I25.10 Atherosclerotic heart disease of native coronary artery without angina pectoris; I46.9 Cardiac arrest, cause unspecified
CPT/HCPCS: 99214

== ENCOUNTER → 2022-11-27 12:45 | Outpatient (BNVA) | payer MEDICARE, MEDICAID, SELFPAY | PROVIDERS: PCP Nurse Practitioner Family; Visit Provider Internal Medicine | DX: I42.8 Other cardiomyopathies (principal); I46.9 Cardiac arrest, cause unspecified; I25.10 Atherosclerotic heart disease of native coronary artery without angina pectoris | CPT/HCPCS: 99212 ==

== ENCOUNTER 2022-11-28 09:43 | Outpatient (AMB) | payer MEDICARE, MEDICAID, SELFPAY ==
--- NOTE | 2022-11-28 10:07 | A.OFFVIS_ITS ---
Intake Vital Signs 11/28/22 10:08 Height 6 ft 2 in Weight 225 lb BMI 28.9 BP 122/74 Blood Pressure Location Lt brachial Position Sitting Respiration 18 Pulse 80 Pulse Source Pulse Oximeter Pulse Oximetry (%) 98 Oxygen Delivery Method Room Air Intake Visit Reasons: ITDD TRIAL WITH BUPI 11/26/22/CONFIRMED Allergies bupropion [From Wellbutrin] Allergy (Intermediate, Verified 11/28/22 10:09) Hives, Rage varenicline [From Chantix] Allergy (Intermediate, Verified 11/28/22 10:09) Agitation, Aggression codeine [Codeine] Allergy (Mild, Verified 11/28/22 10:09) HIVES/ITCHING methadone [Methadone] Allergy (Mild, Verified 11/28/22 10:09) HIVES/ITCHING barium sulfate Allergy (Unknown, Verified 11/28/22 10:09) Unknown Black Pepper-Turmeric Allergy (Unknown, Uncoded 11/27/22 12:51) Unknown HPI HPI Comments History of Present Illness Details Daniel is? 51 years old gentleman who is in my office after the trial pain pump with bupivacaine. The results of the trial are discouraging. She reports minimal pain reduction from 9/10 to 8/10 for the first our after the trial although he reports appropriate sensation of numbness in the back and numbness and tingling sensations in the lower extremities. Prior to this trial he had trial of the pain pump with morphine. reported urinary retention and itching sensation. before that he had a trial with hydromorphone where again he had nausea, vomiting on 90 mcg of hydromorphone only. reports BPH needs to see a urologist. I will refer him to our urologist just in case his appointment with a urologist elsewhere will not come to good results. Prolonged and difficult discussion was held today. The patient wants me to start him on oral opioids. I explained to him in the past and once more today that our chronic opioid program at [facility] is closed for new admissions. I explained to him that he might be eble to find a PCP instead of his current provider who will be willing to start him on the trial of minimal to moderate doses of the opioids. In the past he was on very large doses of the opioid medications he reports that he was fuctional at that time. Oral opioids and opioid induced hyperalgesia were explianed again to the patient. Prior: Trial of Nevro spinal cord stimulator.? He receives is spinal cord stimulator trial on 06/28/2022.? He forgot to take his antibiotics during the trial time.? Fortunately his dressing changed today is uneventful.? No pathological discharge, no tenderness on palpation, no redness.? He reports that Nevro spinal cord stimulator did not at all affect his pain. [facility] Medical History Atherosclerotic cardiovascular disease Back pain Cardiac arrest Cardiac defibrillator in place COPD with exacerbation History of TIA (transient ischemic attack) Hyperlipidemia MRSA infection Nonischemic cardiomyopathy Restrictive lung disease Rotator cuff arthropathy of both shoulders Smoker Uncomplicated opioid dependence Surgical History History of colonoscopy History of repair of left rotator cuff S/P insertion of spinal cord stimulator Hx of fusion of cervical spine Hx of cardiac catheterization Status post subacromial decompression (~10/30/17) History of repair of right rotator cuff (~05/27/13) History of cholecystectomy History of back surgery Family History Mother Multiple sclerosis Father Diabetes Amputat leg, bilat-complicated Sister Lupus Social History Alcohol intake: never Patient Tobacco Use Status: Current everyday Tobacco user Tobacco use type: Cigarette Cigarette Packs Per Day: 0.5 Cigarettes Per Day: 10.0 Years Smoked: 42 e-Cigarette/Vaping Use: Currently Using Cognitive needs: No Hearing needs: No Vision needs: No Review of Systems Const All systems reviewed & are unremarkable except as noted in HPI and below Physical Exam Vital Signs: Last Vital Signs Pulse 80 11/28/22 10:08 Resp 18 11/28/22 10:08 BP 122/74 11/28/22 10:08 Pulse Ox 98 11/28/22 10:08 Oxygen Delivery Method Room Air 11/28/22 10:08 BMI result Body Mass Index 28.9 Const General: cooperative, well developed, alert and awake; No no acute distress Orientation/consciousness: patient oriented x3 Neck Other: Right-sided anterior neck scar delineating anterior fusion C4 through C6 is well-healed. The posterior midline scar from C2 through C5 approximately also very well- healed Back/Spine/Pelvis Other: Very well-healed anterior and posterior scars delineating previous fusions of the lower lumbar spine Neuro General: patient oriented x3 Assessment & Plan Assessment & Plan (1) BPH (benign prostatic hyperplasia): Code(s): N40.0 - Benign prostatic hyperplasia without lower urinary tract symptoms (2) Failed back syndrome, lumbar: Code(s): M96.1 - Postlaminectomy syndrome, not elsewhere classified (3) Failed back syndrome, cervical: Code(s): M96.1 - Postlaminectomy syndrome, not elsewhere classified (4) Chronic pain syndrome: Code(s): G89.4 - Chronic pain syndrome Plan Plan of care is as above. Nevro SCS trial resulted in no pain improvement at all. Two trials of intrathecal pain pump 1 with 90 micro g of Dilaudid (Dilaudid pump resulted in 3 different side effects including itching, urine retention, nausea and vomiting, it was 90 micro g of Dilaudid injected in the CSF); trial of 70 micro g of morphine (greatly reduced dose of morphine ) resulted in urinary retention and itching. Patient has enlarged prostate, which contribute to the urinary retention . Bupivacain pain pump trial resulted in appropriate numbness sensation but only minimal pain reduction. He would prefer to be on oral opioids, he asks me repeatedly to start him on oral opioids but our chronic opioid program is currently closed for new admisions. His PCP does not want to start him on oral opioids. I told him today that we can only continue trials for the pain pump with fentanyl, clonidine and baclofen. He said he cannot afford Prialt although as a Medicare recipient he will be responsible for $600 copay 4 times a year. He decided that he wants to go for fentanyl pain pump trial. I will schedule him for the trial. I will also refer him to our urologist for BPH eval and t-x. Orders: Referrals Urology Referral N40.0 - Benign prostatic hyperplasia without lower urinary tract symptoms Coding Level of Care Code Est Pt Level 4 (98204) Diagnoses BPH (benign prostatic hyperplasia) N40.0 Failed back syndrome, lumbar M96.1 Failed back syndrome, cervical M96.1 Chronic pain syndrome G89.4
[2022-11-28 10:08] VITALS: BP 122/74; PULSE 80; RESP 18; O2SAT 98; BMI 28.9
== END 2022-11-28 10:46 | disposition home or self-care (01) ==
PROVIDERS: PCP Nurse Practitioner Family; Visit Provider Anesthesiology
DX: N40.0 Benign prostatic hyperplasia without lower urinary tract symptoms (principal); M96.1 Postlaminectomy syndrome, not elsewhere classified; G89.4 Chronic pain syndrome
CPT/HCPCS: 99214

== ENCOUNTER → 2022-11-28 09:43 | Outpatient (BNVA) | payer MEDICARE, MEDICAID, SELFPAY | PROVIDERS: PCP Nurse Practitioner Family; Visit Provider Anesthesiology | DX: G89.4 Chronic pain syndrome (principal); M96.1 Postlaminectomy syndrome, not elsewhere classified; N40.0 Benign prostatic hyperplasia without lower urinary tract symptoms | CPT/HCPCS: 99212 ==

== ENCOUNTER 2022-12-02 14:30 | Outpatient (AMB) | payer MEDICARE, MEDICAID, SELFPAY ==
--- NOTE | 2022-12-02 14:31 | A.OFFVIS_ITS ---
Intake Intake Visit Reasons: ED follow up Intake Note: NEW Patient presents today to established treatment for Urinary Retention: Meds- Tamsulosin Allergies to Antibiotic- No Known Allergies Blood Thinner- Aspirin PVR- 42 mL Graphic Production Artist Required: No Accompanied by: Self / Same As Patient Allergies bupropion [From Wellbutrin] Allergy (Intermediate, Verified 12/02/22 14:32) Hives, Rage varenicline [From Chantix] Allergy (Intermediate, Verified 12/02/22 14:32) Agitation, Aggression codeine [Codeine] Allergy (Mild, Verified 12/02/22 14:32) HIVES/ITCHING methadone [Methadone] Allergy (Mild, Verified 12/02/22 14:32) HIVES/ITCHING barium sulfate Allergy (Unknown, Verified 12/02/22 14:32) Unknown Black Pepper-Turmeric Allergy (Unknown, Uncoded 12/02/22 14:32) Unknown Medication List - Last Reconciled 12/03/22 by Arnulfo Mary MD albuterol sulfate 90 mcg/actuation (Ventolin HFA) 2 puffs inhalation Q4-6H PRN aspirin (Adult Low Dose Aspirin) 81 mg PO DAILY atorvastatin 80 mg PO DAILY carvedilol 3.125 mg PO BID 90 days cholecalciferol (vitamin D3) 50 mcg PO DAILY lisinopril 5 mg PO DAILY naloxone 4 mg/actuation 4 mg intranasal Q3M PRN nitroglycerin 0.4 mg sublingual Q5M PRN spironolactone 25 mg PO DAILY tamsulosin (Flomax) 0.4 mg PO BEDTIME HPI HPI Comments History of Present Illness Details Daniel is a 52-year-old male who presents today to the office to establish as a new patient for an evaluation of ED follow-up. 12/02/2022? He presents today for an evaluation of?urinary retention. Patient has a past medical history significant for coronary artery disease, pacemaker defibrillator, COPD, and history of TIA in 2013. He is currently a smoker. h/o multiple back surgeries. He has failed the trial of spinal cord stimulator for back pain. He has seen in the ED on 11/28/2022 for c/o's not able to urinate. Review of notes Bladder scan PVR 500 mL. A jovel was placed. The patient was referred to the urology office during that time.?Catheter has been was removed and he deflated the balloon after 2 days and he states that he is voiding well since then. Patient states that he has seen urologist in the past many years ago, but from several years he has not seen urologist as his urologist is retired. He states that he has been taking tamsulosin 0.4 mg. The pt states he had a morphine injection into his back prior to the episode of urinary retention, The episode of UR appears to be related to the injection for back pain. Patient was instructed that he could trial an increase in the Flomax to BID at time of next back injection, however it is unclear that may help. If the urinary retention symptoms recur he should go back to ED. Evaluation today-UA? leukocytes: negative; blood: negative; bladder scan PVR: 42 mL. Review of labs -- BUN 15, creat 0.9; PSA 03/08/22- 0.67 Plan: Continue Flomax. Follow-up in 6 months. [facility] Medical History Nonischemic cardiomyopathy Back pain Hyperlipidemia Restrictive lung disease History of TIA (transient ischemic attack) Smoker COPD with exacerbation Uncomplicated opioid dependence MRSA infection Cardiac arrest Atherosclerotic cardiovascular disease Rotator cuff arthropathy of both shoulders Cardiac defibrillator in place Surgical History History of colonoscopy History of repair of left rotator cuff S/P insertion of spinal cord stimulator Hx of fusion of cervical spine Hx of cardiac catheterization Status post subacromial decompression (~10/30/17) History of repair of right rotator cuff (~05/27/13) History of cholecystectomy History of back surgery Family History Mother Multiple sclerosis Father Diabetes Amputat leg, bilat-complicated Sister Lupus Social History Alcohol intake: never Patient Tobacco Use Status: Current everyday Tobacco user Tobacco use type: Cigarette Cigarette Packs Per Day: 0.5 Cigarettes Per Day: 10.0 Years Smoked: 42 e-Cigarette/Vaping Use: Currently Using Cognitive needs: No Hearing needs: No Vision needs: No Review of Systems Const All systems reviewed & are unremarkable except as noted in HPI and below Reports no additional complaints Eyes Reports no additional complaints ENT Denies neck pain Card Denies leg edema Resp Denies cough GI Denies constipation Musc Reports no additional complaints and Denies neck pain Skin/Breast Denies rash and Denies unusual bruising Neuro Reports no additional complaints Psych Reports no additional complaints Endo Reports no additional complaints Fred/Lymph Reports no additional complaints Aller/Immun Reports no additional complaints Physical Exam Const General: healthy appearing, no acute distress and well developed Orientation/consciousness: patient oriented x3 HEENT Head: Yes normocephalic and Yes atraumatic Eyes Conjunctivae: conjunctivae normal Neck Neck: Yes normal visual inspection Chest Chest palpation & inspection: normal inspection of the chest Resp Effort & Inspection: normal respiratory effort Cardio Rate: regular rate GI Inspection: Yes normal to inspection Palpation (GI): Soft to palpation Skin General skin exam: no rashes or lesions noted Neuro General: patient oriented x3 Extrem General: No pedal edema Psych Appearance: grossly normal Affect: normal affect Office Procedures Post Void Residual Post Residual Void Post Void Residual (PVR): 42 [id number] Void Residual by ultrasound Results AMB Urinalysis, Automated UA Leukoctes 0 Ameya/uL Last Edit by SANJIV Dodson on 12/02/22 14:54 UA Nitrite Negative Last Edit by SANJIV Dodson on 12/02/22 14:54 UA Urobilinogen 0.2 mg/dL Last Edit by SANJIV Dodson on 12/02/22 14:5 4 UA Protein 0 mg/dL Last Edit by SANJIV Dodson on 12/02/22 14:54 UA pH 6.0 Last Edit by SANJIV Dodson on 12/02/22 14:54 UA Blood 0 Jhon/uL Last Edit by SANJIV Dodson on 12/02/22 14:54 UA Specific [place] 1.025 Last Edit by SANJIV Dodson on 12/02/22 14: 54 UA Ketone Negative Last Edit by SANJIV Dodson on 12/02/22 14:54 UA Bilirubin 0 mg/dL Last Edit by SANJIV Dodson on 12/02/22 14:54 UA Glucose 0 mg/dL Last Edit by SANJIV Dodson on 12/02/22 14:54 Results Reviewed Results Reviewed: Laboratory Last Values Urine pH (Auto) 6.0 12/02/22 14:53 Specific [place] (Auto) 1.025 12/02/22 14:53 Urine Protein (Auto) 0 mg/dL 12/02/22 14:53 Glucose (UA)(Auto) 0 mg/dL 12/02/22 14:53 Urine Ketones (Auto) Negative 12/02/22 14:53 Urine Blood (Auto) 0 Jhon/uL 12/02/22 14:53 Urine Nitrite (Auto) Negative 12/02/22 14:53 Urine Bilirubin (Auto) 0 mg/dL 12/02/22 14:53 Urine Urobilinogen (Auto) 0.2 mg/dL 12/02/22 14:53 Leukocyte Esterase (Auto) 0 Ameya/uL 12/02/22 14:53 Assessment & Plan Assessment & Plan (1) Urinary retention: Code(s): R33.9 - Retention of urine, unspecified (2) Cigarette nicotine dependence: Code(s): F17.210 - Nicotine dependence, cigarettes, uncomplicated (3) BPH w/o urinary obs/LUTS: Code(s): N40.0 - Benign prostatic hyperplasia without lower urinary tract symptoms Plan Continue Flomax. Follow-up in 6 months. Orders: Orders AMB Urinalysis Automated 12/02/22 Z13.9 - Encounter for screening, unspecified AMB Post Void Residual by ultrasound 12/02/22 N39.8 - Other specified disorders of urinary system Medications: New tamsulosin (Flomax) 0.4 mg PO BEDTIME 90 caps 2RF Patient Instructions: The patient had an opportunity to ask questions regarding treatment plan. All questions were answered. Imaging, Laboratory studies and physical exam results were discussed and reviewed in detail. No major barriers to understanding were identified. The patient expressed understanding and agreement with the above treatment plan.? ? ? The patient is aware they should contact our office by phone for worsening of their current condition or the appearance of new symptoms. Compliance is encouraged with any medications and followup testing that is ordered.? ? ? It is a privilege to be allowed the opportunity to participate in the urologic care of your patient. If you have any questions or concerns regarding treatment for the above conditions please do not hesitate to contact me. The office telephone contact is [phone].? ? ? This note is constructed in part using voice recognition software. While every effort has been made to ensure accuracy shoe repair supervisor errors may have been included.? ? ? Yours sincerely,? ? ? Arnulfo Mary MD? Coding Level of Care Code New Pt Level 4 (56624) Diagnoses Urinary retention R33.9 Cigarette nicotine dependence F17.210 BPH w/o urinary obs/LUTS N40.0 CPT Codes Post Residual Void - PVR CPT Code: 29874-[id number] Void Residual by ultrasound ([id number])
== END 2022-12-02 15:06 | disposition home or self-care (01) ==
PROVIDERS: PCP Nurse Practitioner Family; Visit Provider Urology
DX: R33.9 Retention of urine, unspecified (principal); F17.210 Nicotine dependence, cigarettes, uncomplicated; N40.0 Benign prostatic hyperplasia without lower urinary tract symptoms
CPT/HCPCS: 99204

== ENCOUNTER → 2022-12-02 14:30 | Outpatient (BNVA) | payer MEDICARE, MEDICAID, SELFPAY | PROVIDERS: PCP Nurse Practitioner Family; Visit Provider Urology | DX: N40.1 Benign prostatic hyperplasia with lower urinary tract symptoms (principal); R33.9 Retention of urine, unspecified; F17.210 Nicotine dependence, cigarettes, uncomplicated | CPT/HCPCS: 51798; 81003 ==

== ENCOUNTER 2022-12-03 13:23 | Outpatient (AMB) | payer MEDICARE, MEDICAID, SELFPAY ==
[2022-12-03 13:30] VITALS: BP 102/70; PULSE 99; O2SAT 96; BMI 28.8
--- NOTE | 2022-12-03 13:30 | A.OFFVIS_ITS ---
Intake Vital Signs 12/03/22 13:30 Height 6 ft 2 in Weight 224 lb BMI 28.8 BP 102/70 Blood Pressure Location Lt brachial Position Sitting Pulse 99 Pulse Source Pulse Oximeter Pulse Oximetry (%) 96 Oxygen Delivery Method Room Air Intake Visit Reasons: copd Intake Note: pt is here for follow up and stated he is doing okay with his breathing. Passenger Service Manager Required: No Allergies bupropion [From Wellbutrin] Allergy (Intermediate, Verified 12/03/22 13:59) Hives, Rage varenicline [From Chantix] Allergy (Intermediate, Verified 12/03/22 13:59) Agitation, Aggression codeine [Codeine] Allergy (Mild, Verified 12/03/22 13:59) HIVES/ITCHING methadone [Methadone] Allergy (Mild, Verified 12/03/22 13:59) HIVES/ITCHING barium sulfate Allergy (Unknown, Verified 12/03/22 13:59) Unknown Black Pepper-Turmeric Allergy (Unknown, Uncoded 12/03/22 13:59) Unknown Medication List - Last Reconciled 12/03/22 by Mare Escobar MD albuterol sulfate 90 mcg/actuation (Ventolin HFA) 2 puffs inhalation Q4-6H PRN aspirin (Adult Low Dose Aspirin) 81 mg PO DAILY atorvastatin 80 mg PO DAILY carvedilol 3.125 mg PO BID 90 days cholecalciferol (vitamin D3) 50 mcg PO DAILY lisinopril 5 mg PO DAILY naloxone 4 mg/actuation 4 mg intranasal Q3M PRN nitroglycerin 0.4 mg sublingual Q5M PRN spironolactone 25 mg PO DAILY tamsulosin (Flomax) 0.4 mg PO BEDTIME Do you need a note to return to daycare/school/sports/work: No HPI copd HPI Details 52 YEARS OLD GENTLEMAN IS HERE FOR 6 MON THS FOLLOW-UP. BREATHING HAS BEEN VERY STABLE. HE HAS ONLY OCCASIONAL COUGH NO WHEEZING. NO SHORTNESS OF BREATH ON WALKING BECAUSE HE WALKS SLOW ANYWAY HE HAS. HE USES ALBUTEROL HFA 1 OR 2 PUFFS ONLY ONCE IN A WHILE. HE IS NOT ON ANY MAINTENANCE INHALER. HE SMOKES ONLY 1 OR 2 CIGARETTES A DAY BUT HE SMOKES ELECTRONIC CIGARETTES EVERY FEW HOURS. ( HE SAY IS IT IS MUCH CHEAPER THAN SMOK ING THE TOBACCO CIGARETTES ) MOST OF THE CONVERSATION WAS AROUND HIS ISSUE OF BACK PAIN. [facility] Medical History Nonischemic cardiomyopathy Back pain Hyperlipidemia Restrictive lung disease History of TIA (transient ischemic attack) Smoker COPD with exacerbation Uncomplicated opioid dependence MRSA infection Cardiac arrest Atherosclerotic cardiovascular disease Rotator cuff arthropathy of both shoulders Cardiac defibrillator in place Surgical History History of colonoscopy History of repair of left rotator cuff S/P insertion of spinal cord stimulator Hx of fusion of cervical spine Hx of cardiac catheterization Status post subacromial decompression (~10/30/17) History of repair of right rotator cuff (~05/27/13) History of cholecystectomy History of back surgery Family History Mother Multiple sclerosis Father Diabetes Amputat leg, bilat-complicated Sister Lupus Social History Alcohol intake: never Patient Tobacco Use Status: Current everyday Tobacco user Tobacco use type: Cigarette Cigarette Packs Per Day: 0.5 Cigarettes Per Day: 10.0 Years Smoked: 42 e-Cigarette/Vaping Use: Currently Using Cognitive needs: No Hearing needs: No Vision needs: No Review of Systems Const All systems reviewed & are unremarkable except as noted in HPI and below Eyes Reports no additional complaints ENT Reports no additional complaints Card Denies chest pain at rest and Denies leg edema Resp Reports as per HPI GI Reports no additional complaints Reports no additional complaints Musc Reports no additional complaints Skin/Breast Reports system reviewed and no additional complaints, except as documented Neuro Reports no additional complaints Psych Reports no additional complaints Physical Exam Vital Signs: Last Vital Signs Pulse 99 12/03/22 13:30 BP 102/70 12/03/22 13:30 Pulse Ox 96 12/03/22 13:30 Oxygen Delivery Method Room Air 12/03/22 13:30 BMI result Body Mass Index 28.8 Const General: comfortable (Somewhat anxious), no acute distress, alert and awake Orientation/consciousness: patient oriented x3 HEENT Head: Yes normal to inspection General nose exam: No nasal polyps present and No nasal discharge present Face and sinus: Yes sinuses nontender Mouth: oropharynx normal Throat: Yes posterior oropharynx normal Eyes General: appearance normal, both eyes and all related structures Neck Neck: Yes normal visual inspection, Yes no lymphadenopathy, Yes trachea midline and Yes no JVD Thyroid: Thyroid normal Chest Chest palpation & inspection: normal inspection of the chest, normal palpation of entire chest wall and no tenderness Resp Other: Percussion note is resonant, breath sounds are slightly distant with prolonged expiratory phase. Today he does not have any audible wheezes or crepitations. Cardio Palpation: normal PMI Rate: regular rate Rhythm: regular rhythm and other (Pacemaker battery in the left pectoral area) Heart sounds: no gallops and no murmurs GI Palpation (GI): Soft to palpation, nontender, No hepatosplenomegaly present and no masses Auscultation: normal bowel sounds Back/Spine/Pelvis Thoracic/Lumbar Spine: thoracic and lumbar spine normal to inspection Skin Other: Extensive tattoos General skin exam: no rashes or lesions noted Neuro General: patient oriented x3 and no focal motor deficits Cranial nerves: Yes CN's II-XII intact bilaterally Extrem General: Yes normal to inspection, Yes no clubbing, cyanosis or edema and Yes no calf tenderness Psych Appearance: grossly normal and well kempt Speech and movement: Normal speech and movement present Assessment & Plan Assessment & Plan (1) COPD (chronic obstructive pulmonary disease): Comment: He has chronic obstructive pulmonary disease secondary to his ongoing smoking. However as per PFT. It is mild and his problem is mostly restrictive lung disease. [place] : ALBUTEROL HFA 2 PUFFS Q 4-6 HOURS P.R.N.. No need to use Wixela . Code(s): J44.9 - Chronic obstructive pulmonary disease, unspecified (2) Cigarette nicotine dependence: Comment: WE HAD A GOOD DISCUSSION ABOUT SMOKING, ADVISED TO QUIT COMPLETELY. ALSO WARNED HIM AGAINST THE SIDE EFFECTS OF USING ELECTRONIC CIGARETTES. HE WILL TRY TO KEEP IT DOWN POSSIBLE. Code(s): F17.210 - Nicotine dependence, cigarettes, uncomplicated (3) Restrictive lung disease: Comment: PFT shows moderate degree of restrictive lung disorder. I think this is probably due to his advanced degenerative arthritis of the spine . He does not have evidence of interstitial lung disease. Explained to him and he is advised to do deep breathing exercises 2 or 3 times a day.. Code(s): J98.4 - Other disorders of lung Coding Level of Care Code Est Pt Level 3 (45296) Diagnoses COPD (chronic obstructive pulmonary disease) J44.9 Cigarette nicotine dependence F17.210 Restrictive lung disease J98.4
== END 2022-12-03 13:59 | disposition home or self-care (01) ==
PROVIDERS: PCP Nurse Practitioner Family; Visit Provider Internal Medicine
DX: J44.9 Chronic obstructive pulmonary disease, unspecified (principal); F17.210 Nicotine dependence, cigarettes, uncomplicated; J98.4 Other disorders of lung
CPT/HCPCS: 99213

== ENCOUNTER → 2022-12-03 13:23 | Outpatient (BNVA) | payer MEDICARE, MEDICAID, SELFPAY | PROVIDERS: Visit Provider Internal Medicine | DX: J44.9 Chronic obstructive pulmonary disease, unspecified (principal); J98.4 Other disorders of lung; F17.210 Nicotine dependence, cigarettes, uncomplicated | CPT/HCPCS: 99212 ==

== ENCOUNTER 2022-12-17 07:22 | Outpatient (REF) | payer MEDICARE, MEDICAID, SELFPAY ==
--- NOTE | ~2022-12-17 | FL_ITS ---
EXAMINATION: XR FLUOROSCOPY WITH IMAGES CLINICAL INFORMATION: Chronic pain syndrome. COMPARISON: None available. TECHNIQUE: Fluoroscopy Supervised By: Dr. Edmond Sheehan. Fluoroscopy Time: 0.2 minutes. Cumulative Dose: 3.96 mGy. DAP: 0.0689 Gycm2. Images: 2. FINDINGS: Fluoroscopy guidance for lumbar puncture. Image demonstrates the spinal canal at the L1-L2 interlaminar level. FL/FL guidance in treatment room IMPRESSION: Fluoroscopy guidance for lumbar puncture
== END 2022-12-17 07:23 | disposition home or self-care (01) ==
LOC: CF 07:22
PROVIDERS: Visit Provider Anesthesiology
DX: M96.1 Postlaminectomy syndrome, not elsewhere classified (principal); G89.4 Chronic pain syndrome
CPT/HCPCS: 62323; J3010

== ENCOUNTER 2022-12-17 09:28 | Outpatient (AMB) | payer MEDICARE, MEDICAID, SELFPAY ==
[2022-12-17 09:39] VITALS: BP 116/72; BP 118/90; PULSE 74; PULSE 89; RESP 16; O2SAT 96; O2SAT 97; BMI 28.8
--- NOTE | 2022-12-17 09:39 | MHC.OFFVIS ---
Intake Vital Signs 12/17/22 09:39 12/17/22 09:39 12/17/22 12:05 Height 6 ft 2 in 6 ft 2 in 6 ft 2 in Weight 224 lb 224 lb 224 lb BMI 28.8 28.8 28.8 BP 116/72 118/90 H 110/74 Blood Pressure Location Lt brachial Lt brachial Lt brachial Position Sitting Supine Sitting Respiration 16 16 16 Pulse 89 74 88 Pulse Source Pulse Oximeter Pulse Oximeter Pulse Oximeter Pulse Oximetry (%) 97 96 98 Oxygen Delivery Method Room Air Room Air Room Air Comment pre-op post-op @11:40 am Intake Visit Reasons: ITDD TRIAL W/FENTANYL/LOCAL Allergies bupropion [From Wellbutrin] Allergy (Intermediate, Verified 12/17/22 09:40) Hives, Rage varenicline [From Chantix] Allergy (Intermediate, Verified 12/17/22 09:40) Agitation, Aggression codeine [Codeine] Allergy (Mild, Verified 12/17/22 09:40) HIVES/ITCHING methadone [Methadone] Allergy (Mild, Verified 12/17/22 09:40) HIVES/ITCHING barium sulfate Allergy (Unknown, Verified 12/17/22 09:40) Unknown Black Pepper-Turmeric Allergy (Unknown, Uncoded 12/03/22 13:59) Unknown [facility] Medical History Nonischemic cardiomyopathy Back pain Hyperlipidemia Restrictive lung disease History of TIA (transient ischemic attack) Smoker COPD with exacerbation Uncomplicated opioid dependence MRSA infection Cardiac arrest Atherosclerotic cardiovascular disease Rotator cuff arthropathy of both shoulders Cardiac defibrillator in place Surgical History History of colonoscopy History of repair of left rotator cuff S/P insertion of spinal cord stimulator Hx of fusion of cervical spine Hx of cardiac catheterization Status post subacromial decompression (~10/30/17) History of repair of right rotator cuff (~05/27/13) History of cholecystectomy History of back surgery Family History Mother Multiple sclerosis Father Diabetes Amputat leg, bilat-complicated Sister Lupus Social History Alcohol intake: never Patient Tobacco Use Status: Current everyday Tobacco user Tobacco use type: Cigarette Cigarette Packs Per Day: 0.5 Cigarettes Per Day: 10.0 Years Smoked: 42 e-Cigarette/Vaping Use: Currently Using Cognitive needs: No Hearing needs: No Vision needs: No Physical Exam Vital Signs: Last Vital Signs Pulse 88 12/17/22 12:05 Resp 16 12/17/22 12:05 BP 110/74 12/17/22 12:05 Pulse Ox 98 12/17/22 12:05 Oxygen Delivery Method Room Air 12/17/22 12:05 BMI result Body Mass Index 28.8 Assessment & Plan Assessment & Plan (1) Failed back syndrome, lumbar: Code(s): M96.1 - Postlaminectomy syndrome, not elsewhere classified (2) Failed back syndrome, cervical: Code(s): M96.1 - Postlaminectomy syndrome, not elsewhere classified (3) Chronic pain syndrome: Code(s): G89.4 - Chronic pain syndrome Plan: Intrathecal pain pump trial Informed consent was explained to the patient. All questions were explained and answered.? The patient was taken inside of the operating room where he was positioned prone on the operating table.? Time-out was performed delineating patient's name and date of , correct site, side, the nature of the procedure, patient's allergy, preoperative antibiotic if needed.? All operating room staff And the patient were participating in OR time-out procedure. ?the patient's lower back was prepped with ChloraPrep and draped with sterile? utility draped.? Sterilely draped C-arm was brought over the operating field and sq picture of? lumbar vertebrae were delineated on the screen. the target of needle insertion was chosen between L2 and L3 vertebrae. extensive hardware in the patient's L4-5 and S1 lower back was noted.? The projection of the right lamina of the L2 vertebra was chosen as the starting point of the injection.? 22 gauge 3-1/2 inch whittackre needle was inserted through the skin after skin wheal was raised with lidocaine 2%.? The needle was directed to the interlaminar space.? The advancement of the needle was performed on intermittent anterior posterior and lateral views.? On anterior posterior view needle was keppped strictly in the midline.? On the lateral view needle entered in the projection of the center of the spinal canal.? At that moment the stylet was removed from the needle and clear flow CSF was detected in the needle hub.? After that ? 0.5mL solution containing 25 mcg fentanyl was injected into the needle. After that needle was removed sterile dressing was applied.? Patient tolerated procedure well.? He was taken outside of the operating room to the recovery room where he recovered uneventfully. Orders: Orders FL guidance in treatment room Today G89.4 - Chronic pain syndrome Coding Level of Care Code Procedure Only Diagnoses Failed back syndrome, lumbar M96.1 Failed back syndrome, cervical M96.1 Chronic pain syndrome G89.4
[2022-12-17 12:05] VITALS: BP 110/74; PULSE 88; RESP 16; O2SAT 98; BMI 28.8
== END 2022-12-17 12:08 | disposition home or self-care (01) ==
LOC: HO.PMCPRC 09:28
PROVIDERS: PCP Nurse Practitioner Family; Visit Provider Anesthesiology
DX: M96.1 Postlaminectomy syndrome, not elsewhere classified (principal); G89.4 Chronic pain syndrome
CPT/HCPCS: 62323

== ENCOUNTER 2022-12-23 10:11 | Outpatient (AMB) | payer MEDICARE, MEDICAID, SELFPAY ==
--- NOTE | 2022-12-23 10:22 | A.OFFVIS_ITS ---
Intake Vital Signs 12/23/22 10:26 Height 6 ft 2 in Weight 224 lb BMI 28.8 BP 118/70 Blood Pressure Location Lt brachial Position Sitting Respiration 16 Pulse 87 Pulse Source Pulse Oximeter Pulse Oximetry (%) 97 Oxygen Delivery Method Room Air Intake Visit Reasons: ITDD TRIAL W/FENTANYL 12/17/22 Allergies bupropion [From Wellbutrin] Allergy (Intermediate, Verified 12/23/22 10:26) Hives, Rage varenicline [From Chantix] Allergy (Intermediate, Verified 12/23/22 10:26) Agitation, Aggression codeine [Codeine] Allergy (Mild, Verified 12/23/22 10:26) HIVES/ITCHING methadone [Methadone] Allergy (Mild, Verified 12/23/22 10:26) HIVES/ITCHING barium sulfate Allergy (Unknown, Verified 12/23/22 10:26) Unknown Black Pepper-Turmeric Allergy (Unknown, Uncoded 12/03/22 13:59) Unknown HPI HPI Comments History of Present Illness Details Daniel is? 51 years old gentleman who is in my office again this time after the trial of pain pump fentanyl. He reported substantial pain relieve on fentanyl however he admitted severe itching during the time the fentanyl remained in the system. Unfortunately fentanyl is the wrong medication for him. Prior to this we had trials of pain medication for him including morphine, hydromorphone, as well as bupivacaine. All of those medications resulted in different side effects including: Nausea, vomiting, urinary retention, weakness of the lower extremities (bupivacaine) and now itching. Unfortunately bupivacaine fail to alleviate the patient's pain. The only options that I have left for this patient's are Prialt and baclofen. Unfortunately he cannot afford Prialt, which leaves only 1 option for me to make a trial of the baclofen pain pump. I will perform baclofen trialing with 30 mcg of baclofen, we will ask [facility] to prepare 3 cc of this solution just in case but I will inject only 1 cc. Prior: Pump trial with bupivacaine The results of the trial are discouraging. She reports minimal pain reduction from 9/10 to 8/10 for the first our after the trial although he reports appropriate sensation of numbness in the back and numbness and tingling sensations in the lower extremities. Prior to this trial he had trial of the pain pump with morphine. reported urinary retention and itching sensation. before that he had a trial with hydromorphone where again he had nausea, vomiting on 90 mcg of hydromorphone only. reports BPH needs to see a urologist. I will refer him to our urologist just in case his appointment with a urologist elsewhere will not come to good results. Prolonged and difficult discussion was held today. The patient wants me to start him on oral opioids. I explained to him in the past and once more today that our chronic opioid program at [facility] is closed for new admissions. I explained to him that he might be eble to find a PCP instead of his current provider who will be willing to start him on the trial of minimal to moderate doses of the opioids. In the past he was on very large doses of the opioid medications he reports that he was fuctional at that time. Oral opioids and opioid induced hyperalgesia were explianed again to the patient. Prior: Trial of Nevro spinal cord stimulator.? He receives is spinal cord stimulator trial on 06/28/2022.? He forgot to take his antibiotics during the trial time.? Fortunately his dressing changed today is uneventful.? No pathological discharge, no tenderness on palpation, no redness.? He reports that Nevro spinal cord stimulator did not at all affect his pain. [facility] Medical History Nonischemic cardiomyopathy Back pain Hyperlipidemia Restrictive lung disease History of TIA (transient ischemic attack) Smoker COPD with exacerbation Uncomplicated opioid dependence MRSA infection Cardiac arrest Atherosclerotic cardiovascular disease Rotator cuff arthropathy of both shoulders Cardiac defibrillator in place Surgical History History of colonoscopy History of repair of left rotator cuff S/P insertion of spinal cord stimulator Hx of fusion of cervical spine Hx of cardiac catheterization Status post subacromial decompression (~10/30/17) History of repair of right rotator cuff (~05/27/13) History of cholecystectomy History of back surgery Family History Mother Multiple sclerosis Father Diabetes Amputat leg, bilat-complicated Sister Lupus Social History Alcohol intake: never Patient Tobacco Use Status: Current everyday Tobacco user Tobacco use type: Cigarette Cigarette Packs Per Day: 0.5 Cigarettes Per Day: 10.0 Years Smoked: 42 e-Cigarette/Vaping Use: Currently Using Cognitive needs: No Hearing needs: No Vision needs: No Review of Systems Const All systems reviewed & are unremarkable except as noted in HPI and below Physical Exam Vital Signs: Last Vital Signs Pulse 87 12/23/22 10:26 Resp 16 12/23/22 10:26 BP 118/70 12/23/22 10:26 Pulse Ox 97 12/23/22 10:26 Oxygen Delivery Method Room Air 12/23/22 10:26 BMI result Body Mass Index 28.8 Const General: cooperative, well developed, alert and awake; No no acute distress Orientation/consciousness: patient oriented x3 Neck Other: Right-sided anterior neck scar delineating anterior fusion C4 through C6 is w ell-healed. The posterior midline scar from C2 through C5 approximately also very well- healed Back/Spine/Pelvis Other: Very well-healed anterior and posterior scars delineating previous fusions of the lower lumbar spine Neuro General: patient oriented x3 Assessment & Plan Assessment & Plan (1) BPH (benign prostatic hyperplasia): Code(s): N40.0 - Benign prostatic hyperplasia without lower urinary tract symptoms (2) Failed back syndrome, lumbar: Code(s): M96.1 - Postlaminectomy syndrome, not elsewhere classified (3) Failed back syndrome, cervical: Code(s): M96.1 - Postlaminectomy syndrome, not elsewhere classified (4) Chronic pain syndrome: Code(s): G89.4 - Chronic pain syndrome Plan Plan of care is as above. Urological consult: Continue [facility] follow-up in 6 months. Nevro SCS trial resulted in no pain improvement at all. Two trials of intrathecal pain pump 1 with 90 micro g of Dilaudid (Dilaudid pump resulted in 3 different side effects including itching, urine retention, nausea and vomiting, it was 90 micro g of Dilaudid injected in the CSF); trial of 70 micro g of morphine (greatly reduced dose of morphine ) resulted in urinary retention and itching. Patient has enlarged prostate, which contribute to the urinary retention . Bupivacain pain pump trial resulted in appropriate numbness sensation but only minimal pain reduction. Unfortunately minimal dose of fentanyl resulted in severe itching. He would prefer to be on oral opioids, he asks me repeatedly to start him on oral opioids but our chronic opioid program is currently closed for new admisions. His PCP does not want to start him on oral opioids. I told him today that we can only continue trials for the pain pump with fentanyl, clonidine and baclofen. He said he cannot afford Prialt although as a Medicare recipient he will be responsible for $600 copay 4 times a year. He decided that he wants to go for baclofen l pain pump trial. I will schedule him for the trial. The baclofen risk as the medication which can eventually results in severe complications including rhabdomyolysis and myoglobinuria were explained to the patient. Patient Instructions: I here by testify that I spent 30 minutes in conversation with this patient as well as planning his care and organizing his note. Coding Level of Care Code Est Pt Level 4 (68491) Diagnoses BPH (benign prostatic hyperplasia) N40.0 Failed back syndrome, lumbar M96.1 Failed back syndrome, cervical M96.1 Chronic pain syndrome G89.4
[2022-12-23 10:26] VITALS: BP 118/70; PULSE 87; RESP 16; O2SAT 97; BMI 28.8
== END 2022-12-23 10:58 | disposition home or self-care (01) ==
PROVIDERS: PCP Nurse Practitioner Family; Visit Provider Anesthesiology
DX: G89.4 Chronic pain syndrome (principal); M96.1 Postlaminectomy syndrome, not elsewhere classified; N40.0 Benign prostatic hyperplasia without lower urinary tract symptoms
CPT/HCPCS: 99214

== ENCOUNTER → 2022-12-23 10:11 | Outpatient (BNVA) | payer MEDICARE, MEDICAID, SELFPAY | PROVIDERS: PCP Nurse Practitioner Family; Visit Provider Anesthesiology | DX: Z98.890 Other specified postprocedural states (principal); M96.1 Postlaminectomy syndrome, not elsewhere classified; G89.4 Chronic pain syndrome; N40.0 Benign prostatic hyperplasia without lower urinary tract symptoms | CPT/HCPCS: 99212 ==

== ENCOUNTER 2022-12-23 10:49 | Outpatient (AMB) | payer MEDICARE, MEDICAID, SELFPAY ==
--- NOTE | 2022-12-23 10:49 | MHC.OFFVIS ---
Intake Intake Visit Reasons: OV - RT RTC repair 07/10/22 NE Intake Note: Daniel is a 52 year old right hand dominant male who presents today for a post operative appointment s/p Right RTC Repair 07/10/22. At his last visit he was instructed to avoid overhead and heavy lifting. Patient reports that he is doing well has some continues soreness, but he explains that he knows that this is expected. Allergies bupropion [From Wellbutrin] Allergy (Intermediate, Verified 12/23/22 10:26) Hives, Rage varenicline [From Chantix] Allergy (Intermediate, Verified 12/23/22 10:26) Agitation, Aggression codeine [Codeine] Allergy (Mild, Verified 12/23/22 10:26) HIVES/ITCHING methadone [Methadone] Allergy (Mild, Verified 12/23/22 10:26) HIVES/ITCHING barium sulfate Allergy (Unknown, Verified 12/23/22 10:26) Unknown Black Pepper-Turmeric Allergy (Unknown, Uncoded 12/03/22 13:59) Unknown HPI OV - RT RTC repair 07/10/22 NE HPI Details Daniel is a 52 year old man who presents ~5 months S/P right RTC repair. He says he is doing well, still has some residual soreness and he has been avoiding lifting or overhead activities as instructed. He complains of chronic neck pain, and has a hx of a broken neck in ~2014. He has been following with Pain management for nerve block trials and other treatments, but he continues to have pain. [facility] Medical History Nonischemic cardiomyopathy Back pain Hyperlipidemia Restrictive lung disease History of TIA (transient ischemic attack) Smoker COPD with exacerbation Uncomplicated opioid dependence MRSA infection Cardiac arrest Atherosclerotic cardiovascular disease Rotator cuff arthropathy of both shoulders Cardiac defibrillator in place Surgical History History of colonoscopy History of repair of left rotator cuff S/P insertion of spinal cord stimulator Hx of fusion of cervical spine Hx of cardiac catheterization Status post subacromial decompression (~10/30/17) History of repair of right rotator cuff (~05/27/13) History of cholecystectomy History of back surgery Family History Mother Multiple sclerosis Father Diabetes Amputat leg, bilat-complicated Sister Lupus Social History Alcohol intake: never Patient Tobacco Use Status: Current everyday Tobacco user Tobacco use type: Cigarette Cigarette Packs Per Day: 0.5 Cigarettes Per Day: 10.0 Years Smoked: 42 e-Cigarette/Vaping Use: Currently Using Cognitive needs: No Hearing needs: No Vision needs: No Review of Systems Const All systems reviewed & are unremarkable except as noted in HPI and below Physical Exam Const General: no acute distress and alert Orientation/consciousness: patient oriented x3 HEENT Head: Yes normocephalic and Yes atraumatic Eyes EOM: EOMs intact bilaterally Resp Effort & Inspection: normal respiratory effort and able to speak in complete sentences Cardio Jugular venous distension: no JVD Skin General skin exam: turgor normal Rashes: no rashes Neuro General: patient oriented x3 Extrem Other: Right Shoulder: Well-healed portals Full ROM No pain Psych Appearance: grossly normal Affect: normal affect Attitude: cooperative Assessment & Plan Assessment & Plan (1) S/P right rotator cuff repair: Code(s): Z98.890 - Other specified postprocedural states Plan: This is a 52 year old man S/P right supraspinatus & subscapularis tendon repair, DOS: 07/10/22. He is doing well, with no complaints today. I recommend he continue with colleen-scapular strengthening and PT exercises at home, and I cautioned against heavy lifting activities. He can return to normal activities. He can follow up prn (2) History of repair of right rotator cuff: Comment: 05/27/13 Code(s): Z98.890 - Other specified postprocedural states Plan Scribed for Rich Recee MD by Dominik Casey, medical officer psychiatry, on 12/23/22 at 11:05 AM, EST. Coding Level of Care Code Est Pt Level 3 (37815) Diagnoses S/P right rotator cuff repair Z98.890 History of repair of right rotator cuff Z98.890
== END 2022-12-23 11:28 | disposition home or self-care (01) ==
PROVIDERS: PCP Nurse Practitioner Family; Visit Provider Orthopaedic Surgery
DX: M75.101 Unspecified rotator cuff tear or rupture of right shoulder, not specified as traumatic (principal)
CPT/HCPCS: 99213

== ENCOUNTER 2023-01-09 10:09 | Outpatient (AMB) | payer MEDICARE, MEDICAID, SELFPAY ==
--- NOTE | 2023-01-09 11:52 | MHC.OFFWIV ---
Intake Vital Signs 01/09/23 11:53 Height 6 ft 2 in Weight 268 lb 2 oz BMI 34.4 BP 122/70 Blood Pressure Location Rt brachial Position Sitting Pulse 110 H Pulse Source Pulse Oximeter Temp 99.2 F Temp Source Oral Pulse Oximetry (%) 97 Intake Visit Reasons: EST/sore throat [phone] Intake Note: pt is here for c/o sore throat since yesterday Patient Tobacco Use Status: Current everyday Tobacco user Allergies bupropion [From Wellbutrin] Allergy (Intermediate, Verified 01/09/23 11:52) Hives, Rage varenicline [From Chantix] Allergy (Intermediate, Verified 01/09/23 11:52) Agitation, Aggression codeine [Codeine] Allergy (Mild, Verified 01/09/23 11:52) HIVES/ITCHING methadone [Methadone] Allergy (Mild, Verified 01/09/23 11:52) HIVES/ITCHING barium sulfate Allergy (Unknown, Verified 01/09/23 11:52) Unknown Black Pepper-Turmeric Allergy (Unknown, Uncoded 12/03/22 13:59) Unknown Do you need a note to return to daycare/school/sports/work: Yes HPI EST/sore throat [phone] HPI Details 52-year-old male patient presents today for a sick visit. Reports severely sore throat and bilateral ear pain for the last 2 days. Denies any fever. Reports talking and eating anything or very painful. Denies any known exposure to sick contacts. Reports a mild cough. Nonproductive. Denies any shortness of breath or GI symptoms. COUNTS INCLUDE 234 BEDS AT THE [facility] Medical History Nonischemic cardiomyopathy Back pain Hyperlipidemia Restrictive lung disease History of TIA (transient ischemic attack) Smoker COPD with exacerbation Uncomplicated opioid dependence MRSA infection Cardiac arrest Atherosclerotic cardiovascular disease Rotator cuff arthropathy of both shoulders Cardiac defibrillator in place Surgical History History of colonoscopy History of repair of left rotator cuff S/P insertion of spinal cord stimulator Hx of fusion of cervical spine Hx of cardiac catheterization Status post subacromial decompression (~10/30/17) History of repair of right rotator cuff (~05/27/13) History of cholecystectomy History of back surgery Family History Mother Multiple sclerosis Father Diabetes Amputat leg, bilat-complicated Sister Lupus Social History Alcohol intake: never Patient Tobacco Use Status: Current everyday Tobacco user Tobacco use type: Cigarette Cigarette Packs Per Day: 0.5 Cigarettes Per Day: 10.0 Years Smoked: 42 e-Cigarette/Vaping Use: Currently Using Cognitive needs: No Hearing needs: No Vision needs: No Review of Systems Const All systems reviewed & are unremarkable except as noted in HPI and below Physical Exam Vital Signs: Last Vital Signs Temp 99.2 F 01/09/23 11:53 Pulse 110 H 01/09/23 11:53 BP 122/70 01/09/23 11:53 Pulse Ox 97 01/09/23 11:53 BMI result Body Mass Index 34.4 Const General: cooperative and ill appearing acutely HEENT Other: odonophagia Head: Yes normal to inspection Ears: hearing grossly normal bilaterally, external ears normal and TM abnormal (b/l bulging, erythema) General nose exam: Normal external nose present Face and sinus: Yes normal facial exam Mouth: Normal oral and palatal mucosa present Throat: Yes posterior oropharynx abnormal (Erythematous) Neck Neck: Yes no lymphadenopathy Resp Effort & Inspection: normal respiratory effort Auscultation: clear to auscultation bilaterally Cardio Jugular venous distension: no JVD Palpation: normal PMI Rate: regular rate Rhythm: regular rhythm Skin General skin exam: no rashes or lesions noted Extrem General: Yes capillary refill normal Psych Appearance: grossly normal Mental Status: mental status grossly normal Speech and movement: Normal speech and movement present Results AMB Rapid Strep AMB Rapid Strep Negative Last Edit by Phani Ferrer CMA on 01/09/23 12:07 Results Reviewed Results Reviewed: Laboratory Last Values Strep Scn Rapid Clinic Negative 01/09/23 12:07 Assessment & Plan Assessment & Plan (1) Bilateral otitis media: Code(s): H66.93 - Otitis media, unspecified, bilateral Qualifiers: Otitis media type: other nonsuppurative Chronicity: acute Recurrence: non-recurrent Qualified Code(s): H65.193 - Other acute nonsuppurative otitis media, bilateral Plan: Rapid strep was negative. Bilateral tympanic membranes are bulging and erythematous. Will start Augmentin. Reviewed indications, use, possible side effects of this. Advised throat lozenges/sprays for his sore throat. May also take Tylenol/Motrin as needed. Advised soft/bland foods and advance diet as tolerated. Encouraged increased hydration. Patient should return to the clinic if he does not improve with treatment, or if new symptoms develop. He verbalizes understanding and agrees to plan. Orders: Orders AMB Rapid Strep Screen Today Z13.9 - Encounter for screening, unspecified Medications: New amoxicillin-pot clavulanate 875-125 mg 1 tab PO BID 14 tabs 0RF 7 days H65.193 - Other acute nonsuppurative otitis media, bilateral Coding Level of Care Code Est Pt Level 3 (72358) Diagnoses Other non-recurrent acute nonsuppurative otitis media of both ears H65.193 Otitis media type: other nonsuppurative Chronicity: acute Recurrence: non-recurrent
[2023-01-09 11:53] VITALS: BP 122/70; PULSE 110; TEMP 37.3; O2SAT 97; BMI 34.4
== END 2023-01-09 12:29 | disposition home or self-care (01) ==
PROVIDERS: PCP Nurse Practitioner Family; Visit Provider Nurse Practitioner Family
DX: H65.193 Other acute nonsuppurative otitis media, bilateral (principal); J02.9 Acute pharyngitis, unspecified
CPT/HCPCS: 87880; 99213

== ENCOUNTER 2023-02-11 06:07 | Outpatient (REF) | payer MEDICARE, MEDICAID, SELFPAY | END 2023-02-11 06:08 | disposition home or self-care (01) | LOC: CF 06:07 | PROVIDERS: Visit Provider Anesthesiology | DX: Z13.89 Encounter for screening for other disorder (principal) ==

== ENCOUNTER → 2023-02-11 23:59 | Outpatient (BNV) | payer MEDICARE, MEDICAID, SELFPAY ==
--- NOTE | 2023-02-17 13:48 | MHC.OFFVIS ---
Intake Intake Visit Reasons: Remote ICD Check- [email or web address] Allergies bupropion [From Wellbutrin] Allergy (Intermediate, Verified 02/14/23 10:53) Hives, Rage varenicline [From Chantix] Allergy (Intermediate, Verified 02/14/23 10:53) Agitation, Aggression codeine [Codeine] Allergy (Mild, Verified 02/14/23 10:53) HIVES/ITCHING methadone [Methadone] Allergy (Mild, Verified 02/14/23 10:53) HIVES/ITCHING barium sulfate Allergy (Unknown, Verified 02/14/23 10:53) Unknown Black Pepper-Turmeric Allergy (Unknown, Uncoded 02/14/23 10:53) Unknown [facility] Medical History Nonischemic cardiomyopathy Back pain Hyperlipidemia Restrictive lung disease History of TIA (transient ischemic attack) Smoker COPD with exacerbation Uncomplicated opioid dependence MRSA infection Cardiac arrest Atherosclerotic cardiovascular disease Rotator cuff arthropathy of both shoulders Cardiac defibrillator in place Surgical History History of colonoscopy History of repair of left rotator cuff S/P insertion of spinal cord stimulator Hx of fusion of cervical spine Hx of cardiac catheterization Status post subacromial decompression (~10/30/17) History of repair of right rotator cuff (~05/27/13) History of cholecystectomy History of back surgery Family History Mother Multiple sclerosis Father Diabetes Amputat leg, bilat-complicated Sister Lupus Social History Alcohol intake: never Patient Tobacco Use Status: Current everyday Tobacco user Tobacco use type: Cigarette Cigarette Packs Per Day: 0.5 Cigarettes Per Day: 10.0 Years Smoked: 42 e-Cigarette/Vaping Use: Currently Using Cognitive needs: No Hearing needs: No Vision needs: No Office Procedures Cardiac Device Check Cardiac Device Check Details: Date of service- 02/11/2023 ; Battery life 12 years; normal lead parameters; no (recent) significant arrhythmias. Overall normal device function. [id number] Cardiac Interrogation, implant defibrillator w/interim Procedure code (CPT) selection complete Assessment & Plan Assessment & Plan (1) Cardiac arrest: Code(s): I46.9 - Cardiac arrest, cause unspecified Plan x Coding Level of Care Code Procedure Only Diagnoses Cardiac arrest I46.9 CPT Codes Cardiac Device Check - Cardiac Device 13: [id number] Cardiac Interrogation, implant defibrillator w/interim ([id number])
== END ==
PROVIDERS: PCP Nurse Practitioner Family; Visit Provider Internal Medicine
DX: I46.9 Cardiac arrest, cause unspecified (principal); Z95.810 Presence of automatic (implantable) cardiac defibrillator
CPT/HCPCS: 93295

== ENCOUNTER 2023-02-12 15:26 | Outpatient (AMB) | payer MEDICARE, MEDICAID, SELFPAY ==
[2023-02-12 15:28] VITALS: BP 98/80; PULSE 92; O2SAT 100; BMI 28.8
--- NOTE | 2023-02-12 15:28 | A.OFFPC_ITS ---
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: No Allergies bupropion [From Wellbutrin] Allergy (Intermediate, Verified 02/12/23 15:38) Hives, Rage varenicline [From Chantix] Allergy (Intermediate, Verified 02/12/23 15:38) Agitation, Aggression codeine [Codeine] Allergy (Mild, Verified 02/12/23 15:38) HIVES/ITCHING methadone [Methadone] Allergy (Mild, Verified 02/12/23 15:38) HIVES/ITCHING barium sulfate Allergy (Unknown, Verified 02/12/23 15:38) Unknown Black Pepper-Turmeric Allergy (Unknown, Uncoded 02/12/23 15:38) Unknown Medication List - Last Reconciled 02/12/23 by YOMAIRA Quiles albuterol sulfate 90 mcg/actuation (Ventolin HFA) 2 puffs inhalation Q4-6H PRN aspirin (Adult Low Dose Aspirin) 81 mg PO DAILY atorvastatin 80 mg PO DAILY carvedilol 3.125 mg PO BID 90 days cholecalciferol (vitamin D3) 50 mcg PO DAILY lisinopril 5 mg PO DAILY naloxone 4 mg/actuation 4 mg intranasal Q3M PRN nitroglycerin 0.4 mg sublingual Q5M PRN spironolactone 25 mg PO DAILY tamsulosin (Flomax) 0.4 mg PO BEDTIME Tobacco use date assessed: 02/12/23 Dental Screening Dental Screen Date: 02/12/23 Did you have a dental visit in the last 12 months?: Yes Did you have a dental problem in the last 6 months where you did not have access to dental care?: No Was dental information given to patient?: Patient has dentist HPI F/U on HTN, HLD HPI Details Patient is a 52-year-old male who presents today for a routine follow- up. Medical history significant for nonischemic cardiomyopathy - followed by [facility], atherosclerotic cardiovascular disease, history of cardiac arrest 12/2019, ICD presence, cigarette nicotine dependence, COPD - followed by [facility], chronic pain syndrome, failed back syndrome lumbar - followed by [facility]-plan for baclofen injection this week - patient reports 5th injection - previous four injections with no improvement in pain, BPH, hyperlipidemia, postlaminectomy syndrome cervical, postlaminectomy syndrome of lumbar region among others. Patient reports compliance with medications and denies side effects. He reports bilateral hand tremors for the past few months, reports was seen by Neurology in the past with no effect, reports ongoing numbness and tingling in his hands and feet. No shortness of breath or chest pain. [facility] Medical History Nonischemic cardiomyopathy Back pain Hyperlipidemia Restrictive lung disease History of TIA (transient ischemic attack) Smoker COPD with exacerbation Uncomplicated opioid dependence MRSA infection Cardiac arrest Atherosclerotic cardiovascular disease Rotator cuff arthropathy of both shoulders Cardiac defibrillator in place Surgical History History of colonoscopy History of repair of left rotator cuff S/P insertion of spinal cord stimulator Hx of fusion of cervical spine Hx of cardiac catheterization Status post subacromial decompression (~10/30/17) History of repair of right rotator cuff (~05/27/13) History of cholecystectomy History of back surgery Family History Mother Multiple sclerosis Father Diabetes Amputat leg, bilat-complicated Sister Lupus Social History Alcohol intake: never Patient Tobacco Use Status: Current everyday Tobacco user Tobacco use type: Cigarette Cigarette Packs Per Day: 0.5 Cigarettes Per Day: 10.0 Years Smoked: 42 e-Cigarette/Vaping Use: Currently Using Cognitive needs: No Hearing needs: No Vision needs: No Questionnaire Thrive Questionnaire Date Thrive assessed: 03/26/22 AUDIT C Alcohol Use Questionnaire (AUDIT-C) 1. How often do you have a drink containing alcohol?: Never 3. How often do you have six or more drinks on one occasion?: Never Total Score: 0 Score Reviewed/Action Taken: No COLETTE-7 AMB Questionnaire COLETTE-7 Date COLETTE - 7 assessed: 03/26/22 Source: Developed by Drs. King Macias, Melissa Aguilar, Mohan Lovett and colleagues, with an educational cosmo from [employer]. Review of Systems Const Denies body aches, Denies chills, Denies fever(s) and Denies headache(s) ENT Denies dizziness, Denies otalgia, Denies headache(s), Denies nasal discharge, Denies sinus pain and Denies sore throat Card Denies chest pain, Denies edema, Denies lightheadedness and Denies dyspnea Resp Denies cough, Denies dyspnea and Denies wheezing GI Denies constipation, Denies diarrhea, Denies nausea and Denies vomiting Denies dysuria Musc Details: Neuropathy hands and feet Reports back pain, Denies myalgias, Reports arthralgias, Denies joint swelling, Reports numbness and Reports tingling Skin/Breast Denies rash Neuro Denies dizziness, Denies headache(s), Reports numbness and Reports tingling Aller/Immun Denies wheezing Physical exam (Primary Care) Vital Signs: Last Vital Signs Pulse 92 02/12/23 15:28 BP 98/80 02/12/23 15:28 Pulse Ox 100 02/12/23 15:28 Oxygen Delivery Method Room Air 02/12/23 15:28 BMI result Body Mass Index 28.8 Tobacco/Smoking Status: Tobacco use Status Tobacco use date assessed 02/12/23 02/12/23 15:29 Patient Tobacco Use Status Current everyday Tobacco 02/12/23 15:29 Tobacco use type Cigarette 02/12/23 15:29 e-Cigarette/Vaping Use Currently Using 02/12/23 15:29 Thrive Assessment: Date of Thrive Assessment Date Thrive assessed 03/26/22 02/12/23 15:29 Const General: cooperative and no acute distress Orientation/consciousness: patient oriented x3 HENMT Head: Yes normocephalic and Yes atraumatic Mouth: oropharynx normal and moist mucous membranes Throat: Yes posterior oropharynx normal Eyes General: appearance normal, both eyes and all related structures Neck Neck: Yes normal visual inspection and Yes full ROM Resp Effort & Inspection: normal respiratory effort and able to speak in complete sentences Auscultation: clear to auscultation bilaterally, no crackles, no rales, no rhonchi and no wheezes Cardio Rate: regular rate Rhythm: regular rhythm Heart sounds: S1 normal heart sound present and S2 normal heart sound present GI Auscultation: normal bowel sounds Skin General skin exam: no rashes or lesions noted Neuro General: patient oriented x3 Gait exam (Neuro): Normal gait present Extrem General: Yes full ROM and No edema Office Procedures Flu Questionnaire Does the patient have a severe egg allergy?: No Does the patient have severe life threatening allergies?: No Does the patient have a fever or illness today?: No Has the patient ever had Guillain-[place] Syndrome?: No Has the patient ever had any past reaction to a flu shot?: No Immunizations flu vacc [id number] 6mos up(PF) 60 mcg(15 mcgx4)/0.5 mL IM syringe Performing Provider: YOMAIRA Quiles [facility] Administered by: SANJIV Locke on 02/12/23 15:37 Dose Route Admin Location Dispensed Lot Number Expiration Date NDC [place] Driver 0.5 mL IM Right Deltoid 0.5 mL [id number] 08/31/23 [id number] Zayo VIS Given Date VIS Provided VIS Publication Date 02/12/23 Single Vaccine 20 Eligibility Eligibility Date Funding Source Not C Eligible 02/12/23 Private Assessment and Plan Assessment & Plan (1) Nonischemic cardiomyopathy: Code(s): I42.8 - Other cardiomyopathies Plan: Continue to follow-up with [facility] Continue current treatment (2) COPD (chronic obstructive pulmonary disease): Comment: He has chronic obstructive pulmonary disease secondary to his ongoing smoking. However as per PFT. It is mild and his problem is mostly restrictive lung disease. [place] : ALBUTEROL HFA 2 PUFFS Q 4-6 HOURS P.R.N.. No need to use [employer] . Code(s): J44.9 - Chronic obstructive pulmonary disease, unspecified Plan: Continue albuterol inhaler as needed Continue to follow-up with pulmonology (3) Failed back syndrome, lumbar: Code(s): M96.1 - Postlaminectomy syndrome, not elsewhere classified Plan: Continue to follow-up with [facility] (4) Hyperlipidemia: Code(s): E78.5 - Hyperlipidemia, unspecified Plan: LDL 102 10/2022 Continue atorvastatin Due for blood work (5) Atherosclerotic cardiovascular disease: Code(s): I25.10 - Atherosclerotic heart disease of [place] coronary artery without angina pectoris Plan: Continue to follow-up with [facility] (6) Tremor of both hands: Code(s): R25.1 - Tremor, unspecified Plan: Will check blood work Plan Follow-up in 3 months or sooner as needed Orders: Orders Vitamin B12 and Folate Today E78.5 - Hyperlipidemia, unspecified Influenza [id number] Immunization Today Z23 - Encounter for immunization Vitamin D 25-OH Total Today E78.5 - Hyperlipidemia, unspecified Lipid Panel Today E78.5 - Hyperlipidemia, unspecified Comprehensive [place]. Panel Fast Today E78.5 - Hyperlipidemia, unspecified Coding Level of Care Code Est Pt Level 4 (77552) Diagnoses Nonischemic cardiomyopathy I42.8 COPD (chronic obstructive pulmonary disease) J44.9 Failed back syndrome, lumbar M96.1 Hyperlipidemia E78.5 Atherosclerotic cardiovascular disease I25.10 Tremor of both hands R25.1
[2023-02-12 15:50] VITALS: BP 114/80
== END 2023-02-12 15:54 | disposition home or self-care (01) ==
PROVIDERS: PCP Nurse Practitioner Family; Visit Provider Nurse Practitioner Family
DX: I42.8 Other cardiomyopathies (principal); J44.9 Chronic obstructive pulmonary disease, unspecified; M96.1 Postlaminectomy syndrome, not elsewhere classified; E78.5 Hyperlipidemia, unspecified; I25.10 Atherosclerotic heart disease of native coronary artery without angina pectoris; R25.1 Tremor, unspecified; Z23 Encounter for immunization
CPT/HCPCS: 90471; 90686; 99214

== ENCOUNTER 2023-02-14 09:26 | Day surgery (SDC) | payer MEDICARE, MEDICAID, SELFPAY ==
--- NOTE | ~2023-02-14 | FL_ITS ---
EXAMINATION: XR FLUOROSCOPY WITH IMAGES CLINICAL INFORMATION: ITDD trial. COMPARISON: None available. TECHNIQUE: Fluoroscopy Supervised By: Dr. Edmond Sheehan. Fluoroscopy Time: 0.1 minute. Cumulative Dose: 3.34 mGy. DAP: 0.912 Gycm2. Images: 2. FINDINGS: Image demonstrates needle projecting the spinal canal at the L2 level. FL/FL guidance in OR IMPRESSION: Fluoroscopy guidance for pain management procedure.
[2023-02-14 10:41] VITALS: BP 124/85; PULSE 68; RESP 18; TEMP 36.8; O2SAT 98
[2023-02-14 10:42] VITALS: BMI 29.2
--- NOTE | 2023-02-14 11:10 | P.HPSUR_ITS ---
Pre-Procedural Eval Section A Date of Service: 02/14/23 The patient is an INPATIENT: No Changes since office visit: Yes Patient answered all questions The History & Physical has been completed within 30 days and I have reviewed it.: No Section B Chief Complaint: Postlaminectomy syndrome,Chronic pain syndrome Details of Present Illness: as above Relevant Family History (Specify if Yes): No Relevant Social History: None Present Medications: None Medical History: No relevant PMH History of Previous Operations: Relevant previous surgery/procedure and date(s) Allergies: Allergies Allergy/AdvReac Type Severity Reaction Status Date / Time bupropion [From Wellbutrin] Allergy Intermediate Hives, Rage Verified 02/14/23 10:53 varenicline [From Chantix] Allergy Intermediate Agitation, Verified 02/14/23 10:53 Aggression codeine [Codeine] Allergy Mild HIVES/ITCHI Verified 02/14/23 10:53 NG methadone [Methadone] Allergy Mild HIVES/ITCHI Verified 02/14/23 10:53 NG barium sulfate Allergy Unknown Unknown Verified 02/14/23 10:53 Black Pepper-Turmeric Allergy Unknown Unknown Uncoded 02/14/23 10:53 Review of Systems Sugical H&P ROS: Negative: Constitution, Cardiovascular, Respiratory, Neurological, Psychiatric, Hem-Onc, Allergic/Immunologic, Gastrointestinal, Genitourinary, Musculoskeletal, Integumentary, Endocrine and Eyes/Ears/Nose/Th roat Exam Surgical H&P Exam: Normal: HEENT, Normal: Heart, Normal: Lungs, Normal: Extremities, Normal: Abdomen, Normal: Skin and Normal: Neurological Plan Diagnosis/Plan: Unchanged I have reviewed the history and physical and performed a pertinent physical examination on my patient. No changes have occurred unless specified. Time Spent With Patient Time: Total time managing care of this patient today ____ minutes.
--- NOTE | 2023-02-14 11:11 | P.OP_ITS ---
Operative Note Operative Note Date of Service: 02/14/23 Narrative: Intrathecal pain pump trial Informed consent was explained to the patient. All questions were explained and answered.? The patient was taken inside of the operating room where he was positioned prone on the operating table.? Time-out was performed delineating patient's name and date of , correct site, side, the nature of the procedure, patient's allergy, preoperative antibiotic if needed.? All operating room staff And the patient were participating in OR time-out procedure. ?the patient's lower back was prepped with ChloraPrep and draped with sterile? utility draped.? Sterilely draped C-arm was brought over the operating field and sq picture of? lumbar vertebrae were delineated on the screen. the target of needle insertion was chosen between L2 and L3 vertebrae. extensive hardware in the patient's L4-5 and S1 lower back was noted.? The projection of the right lamina of the L2 vertebra was chosen as the starting point of the injection.? 22 gauge 3-1/2 inch whittackre needle was inserted through the skin after skin wheal was raised with lidocaine 2%.? The needle was directed to the interlaminar space.? The advancement of the needle was performed on intermittent anterior posterior and lateral views.? On anterior posterior view needle was kept strictly in the midline.? On the lateral view needle entered in the projection of the center of the spinal canal.? At that moment the stylet was removed from the needle and clear flow CSF was detected in the needle hub.? After that 1.5 mls of preservative free baclofen solution 30 mcg per ml total dose of 45 mcg was injected into the needle. After that needle was removed sterile dressing was applied.? Patient tolerated procedure well.? He was taken outside of the operating room to the recovery room where he recovered u neventfully. He was explaiened about the effect of baclofen on his muscular function.
--- NOTE | 2023-02-14 11:41 | PM.OP ---
Brief Operative Note Date of Service: 02/14/23 Pre-op diagnosis: Postlaminectomy syndrome Post-op diagnosis: same Procedure: trial of intrathecal pain pump with baclofen Surgeon: Edmond Sheehan MD Anesthesia: local Was an Transcribing Operators Supervisor used for this Procedure?: No Estimated blood loss (mL): 0 Condition: stable Disposition: PACU
[2023-02-14 11:45] VITALS: BP 147/82; PULSE 68; RESP 18; TEMP 36.6; O2SAT 98
[2023-02-14 12:00] VITALS: BP 125/75; PULSE 68; RESP 16; O2SAT 95
[2023-02-14 12:15] VITALS: BP 143/63; PULSE 66; RESP 16; O2SAT 95
[2023-02-14 12:30] VITALS: BP 139/95; PULSE 67; RESP 16; O2SAT 96
== END 2023-02-14 13:00 | disposition home or self-care (01) ==
PROVIDERS: PCP Nurse Practitioner Family; Visit Provider Anesthesiology
PROC: (CPT 62323; principal; 2023-02-14 11:10)
DX: M96.1 Postlaminectomy syndrome, not elsewhere classified (principal); G89.4 Chronic pain syndrome; I11.9 Hypertensive heart disease without heart failure; I43 Cardiomyopathy in diseases classified elsewhere; I25.10 Atherosclerotic heart disease of native coronary artery without angina pectoris; E78.5 Hyperlipidemia, unspecified; Z86.74 Personal history of sudden cardiac arrest; Z95.810 Presence of automatic (implantable) cardiac defibrillator; J44.9 Chronic obstructive pulmonary disease, unspecified; R25.1 Tremor, unspecified; Z86.73 Personal history of transient ischemic attack (TIA), and cerebral infarction without residual deficits; Z86.14 Personal history of Methicillin resistant Staphylococcus aureus infection; F11.20 Opioid dependence, uncomplicated; Z88.5 Allergy status to narcotic agent; Z88.8 Allergy status to other drugs, medicaments and biological substances; F17.210 Nicotine dependence, cigarettes, uncomplicated
CPT/HCPCS: 62323; Q9965

== ENCOUNTER → 2023-02-14 09:26 | Outpatient (BNV) | payer MEDICARE, MEDICAID, SELFPAY | PROVIDERS: PCP Nurse Practitioner Family; Visit Provider Anesthesiology | DX: M96.1 Postlaminectomy syndrome, not elsewhere classified (principal); G89.4 Chronic pain syndrome | CPT/HCPCS: 62323 ==

== ENCOUNTER 2023-02-26 11:14 | Outpatient (AMB) | payer MEDICARE, MEDICAID, SELFPAY ==
--- NOTE | 2023-02-26 11:15 | MHC.OFFVIS ---
Intake Vital Signs 02/26/23 11:19 Height 6 ft 2 in Weight 226 lb 8 oz BMI 29.1 BP 132/72 Blood Pressure Location Lt brachial Position Sitting Respiration 16 Pulse 86 Pulse Source Pulse Oximeter Pulse Oximetry (%) 98 Oxygen Delivery Method Room Air Intake Visit Reasons: S/p ITDD Trial w/ Baclofen 30 mcg/ml/conf Allergies bupropion [From Wellbutrin] Allergy (Intermediate, Verified 02/26/23 11:20) Hives, Rage varenicline [From Chantix] Allergy (Intermediate, Verified 02/26/23 11:20) Agitation, Aggression codeine [Codeine] Allergy (Mild, Verified 02/26/23 11:20) HIVES/ITCHING methadone [Methadone] Allergy (Mild, Verified 02/26/23 11:20) HIVES/ITCHING barium sulfate Allergy (Unknown, Verified 02/26/23 11:20) Unknown Black Pepper-Turmeric Allergy (Unknown, Uncoded 02/14/23 10:53) Unknown HPI HPI Comments History of Present Illness Details Daniel is? 51 years old gentleman who is in my office again this time after the trial of pain pump baclofen. He was given relatively small dose of baclofen 45 micro g intrathecally. Unfortunately he reported only tingling sensation in the lower extremities, he reported that his pain was not changed at all. He reports no weakness in bilateral lower extremities. I offered him to try the double of the dose of baclofen this time 90 micro g intrathecally. Unfortunately patient is not very eager to go for this procedure. He does not want to consider Prialt. He thinks that he cannot afford it. That might not be entirely true. The compounding pharmacy may give him some disc comes with the prices although he will be responsible for some copays. He wants to consider oral opioids. He is scheduled for appointment with Dr. Colindres. He has a hope that he might receive opioids from that office. He understood clearly that [facility] for new admission due to staffing shortage. He had a trial with fentanyl. He reported substantial pain relieve on fentanyl however he admitted severe itching during the time the fentanyl remained in the system. Unfortunately fentanyl is the wrong medication for him. Prior to this we had trials of pain medication for him including morphine, hydromorphone, as well as bupivacaine. All of those medications resulted in different side effects including: Nausea, vomiting, urinary retention, weakness of the lower extremities (bupivacaine) and now itching. Unfortunately bupivacaine fail to alleviate the patient's pain. The only options that I have left for this patient's are Prialt and baclofen. Unfortunately he cannot afford Prialt, which leaves only 1 option for me to make a trial of the baclofen pain pump. I will perform baclofen trialing with 30 mcg of baclofen, we will ask [facility] to prepare 3 cc of this solution just in case but I will inject only 1 cc. Prior: Pump trial with bupivacaine The results of the trial are discouraging. She reports minimal pain reduction from 9/10 to 8/10 for the first our after the trial although he reports appropriate sensation of numbness in the back and numbness and tingling sensations in the lower extremities. Prior to this trial he had trial of the pain pump with morphine. reported urinary retention and itching sensation. before that he had a trial with hydromorphone where again he had nausea, vomiting on 90 mcg of hydromorphone only. reports BPH needs to see a urologist. I will refer him to our urologist just in case his appointment with a urologist elsewhere will not come to good results. Prolonged and difficult discussion was held today. The patient wants me to start him on oral opioids. I explained to him in the past and once more today that our chronic opioid program at [facility] is closed for new admissions. I explained to him that he might be eble to find a PCP instead of his current provider who will be willing to start him on the trial of minimal to moderate doses of the opioids. In the past he was on very large doses of the opioid medications he reports that he was fuctional at that time. Oral opioids and opioid induced hyperalgesia were explianed again to the patient. Prior: Trial of Nevro spinal cord stimulator.? He receives is spinal cord stimulator trial on 06/28/2022.? He forgot to take his antibiotics during the trial time.? Fortunately his dressing changed today is uneventful.? No pathological discharge, no tenderness on palpation, no redness.? He reports that Nevro spinal cord stimulator did not at all affect his pain. [facility] Medical History Nonischemic cardiomyopathy Back pain Hyperlipidemia Restrictive lung disease History of TIA (transient ischemic attack) Smoker COPD with exacerbation Uncomplicated opioid dependence MRSA infection Cardiac arrest Atherosclerotic cardiovascular disease Rotator cuff arthropathy of both shoulders Cardiac defibrillator in place Surgical History History of colonoscopy History of repair of left rotator cuff S/P insertion of spinal cord stimulator Hx of fusion of cervical spine Hx of cardiac catheterization Status post subacromial decompression (~10/30/17) History of repair of right rotator cuff (~05/27/13) History of cholecystectomy History of back surgery Family History Mother Multiple sclerosis Father Diabetes Amputat leg, bilat-complicated Sister Lupus Social History Alcohol intake: never Patient Tobacco Use Status: Current everyday Tobacco user Tobacco use type: Cigarette Cigarette Packs Per Day: 0.5 Cigarettes Per Day: 10.0 Years Smoked: 42 e-Cigarette/Vaping Use: Currently Using Cognitive needs: No Hearing needs: No Vision needs: No Review of Systems Const All systems reviewed & are unremarkable except as noted in HPI and below Physical Exam Vital Signs: Last Vital Signs Pulse 86 02/26/23 11:19 Resp 16 02/26/23 11:19 BP 132/72 02/26/23 11:19 Pulse Ox 98 02/26/23 11:19 Oxygen Delivery Method Room Air 02/26/23 11:19 BMI result Body Mass Index 29.1 Const General: cooperative, well developed, alert and awake; No no acute distress Orientation/consciousness: patient oriented x3 Neck Other: Right-sided anterior neck scar delineating anterior fusion C4 through C6 is well-healed. The posterior midline scar from C2 through C5 approximately also very well-healed Back/Spine/Pelvis Other: Very well-healed anterior and posterior scars delineating previous fusions of the lower lumbar spine Neuro General: patient oriented x3 Assessment & Plan Assessment & Plan (1) BPH (benign prostatic hyperplasia): Code(s): N40.0 - Benign prostatic hyperplasia without lower urinary tract symptoms (2) Failed back syndrome, lumbar: Code(s): M96.1 - Postlaminectomy syndrome, not elsewhere classified (3) Failed back syndrome, cervical: Code(s): M96.1 - Postlaminectomy syndrome, not elsewhere classified (4) Chronic pain syndrome: Code(s): G89.4 - Chronic pain syndrome Plan Plan of care is as above. Urological consult: Continue Flomax follow-up in 6 months. Nevro SCS trial resulted in no pain improvement at all. Two trials of intrathecal pain pump 1 with 90 micro g of Dilaudid (Dilaudid pump resulted in 3 different side effects including itching, urine retention, nausea and vomiting, it was 90 micro g of Dilaudid injected in the CSF); trial of 70 micro g of morphine (greatly reduced dose of morphine ) resulted in urinary retention and itching. Patient has enlarged prostate, which contribute to the urinary retention . Bupivacain pain pump trial resulted in appropriate numbness sensation but only minimal pain reduction. Unfortunately minimal dose of fentanyl resulted in severe itching. Baclofen trial no side effects but patient denies any pain improvement. Does not want to consider Prialt due to perceivable cost. He would prefer to be on oral opioids, he asks me repeatedly to start him on oral opioids but our chronic opioid program is currently closed for new admisions. He has a new primary care physician who might be able to prescribe him opioids. Coding Level of Care Code Est Pt Level 3 (42118) Diagnoses BPH (benign prostatic hyperplasia) N40.0 Failed back syndrome, lumbar M96.1 Failed back syndrome, cervical M96.1 Chronic pain syndrome G89.4
[2023-02-26 11:19] VITALS: BP 132/72; PULSE 86; RESP 16; O2SAT 98; BMI 29.1
== END 2023-02-26 11:31 | disposition home or self-care (01) ==
PROVIDERS: PCP Internal Medicine; Visit Provider Anesthesiology
DX: N40.0 Benign prostatic hyperplasia without lower urinary tract symptoms (principal); M96.1 Postlaminectomy syndrome, not elsewhere classified; G89.4 Chronic pain syndrome
CPT/HCPCS: 99213

== ENCOUNTER → 2023-02-26 11:14 | Outpatient (BNVA) | payer MEDICARE, MEDICAID, SELFPAY | PROVIDERS: PCP Nurse Practitioner Family; Visit Provider Anesthesiology | DX: M96.1 Postlaminectomy syndrome, not elsewhere classified (principal); N40.0 Benign prostatic hyperplasia without lower urinary tract symptoms; G89.4 Chronic pain syndrome | CPT/HCPCS: 99212 ==

== ENCOUNTER 2023-05-19 08:40 | Outpatient (REF) | payer MEDICARE, MEDICAID, SELFPAY ==
[2023-05-19 10:54] LABS: Alanine Aminotransferase 33 U/L (0-40); Albumin Level 3.9 g/dL (3.5-5.0); Alkaline Phosphatase 67 U/L (39-117); Anion Gap 11 (12-20); Aspartate Amino Transferase 17 U/L (5-37); Bilirubin Total 0.9 mg/dL (0.0-1.0); Blood Urea Nitrogen 16 mg/dL (9-16); Calcium 9.2 mg/dL (8.4-10.2); Carbon Dioxide 25 mmol/L (22-29); Chloride 108 mmol/L (96-108); Cholesterol 140 mg/dL (<200); Estimated Glomerular Filt Rate > 60; Glucose Fasting 93 mg/dL (60-99); HDL Cholesterol 30 mg/dL (>40); LDL Cholesterol Calculated 68 mg/dL (<100); Potassium 3.8 mmol/L (3.3-5.1); Sodium 140 mmol/L (135-145); Total Protein 6.7 g/dL (6.5-8.0); Triglycerides 211 mg/dL (<150)
[2023-05-19 10:56] LABS: Vitamin D 25-OH Total 27.1 ng/mL (>30)
[2023-05-19 12:44] LABS: Folate 4.7 ng/mL (> or = 4.0); Vitamin B12 747 pg/mL (200-900)
== END 2023-05-19 08:41 | disposition home or self-care (01) ==
LOC: HO.LAB 08:40
PROVIDERS: PCP Internal Medicine; Visit Provider Nurse Practitioner Family
DX: E78.5 Hyperlipidemia, unspecified (principal); I42.9 Cardiomyopathy, unspecified; I25.10 Atherosclerotic heart disease of native coronary artery without angina pectoris; Z95.810 Presence of automatic (implantable) cardiac defibrillator
CPT/HCPCS: 36415; 80053; 80061; 82306; 82607; 82746

== ENCOUNTER → 2023-05-19 23:59 | Outpatient (BNV) | payer MEDICARE, MEDICAID, SELFPAY ==
--- NOTE | 2023-05-25 15:17 | MHC.OFFVIS ---
Intake Intake Visit Reasons: Remote ICD Check- Near Page Allergies bupropion [From Wellbutrin] Allergy (Intermediate, Verified 05/20/23 14:56) Hives, Rage varenicline [From Chantix] Allergy (Intermediate, Verified 05/20/23 14:56) Agitation, Aggression codeine [Codeine] Allergy (Mild, Verified 05/20/23 14:56) HIVES/ITCHING methadone [Methadone] Allergy (Mild, Verified 05/20/23 14:56) HIVES/ITCHING barium sulfate Allergy (Unknown, Verified 05/20/23 14:56) Unknown Black Pepper-Turmeric Allergy (Unknown, Uncoded 05/20/23 14:56) Unknown [facility] Medical History Nonischemic cardiomyopathy Back pain Hyperlipidemia Restrictive lung disease History of TIA (transient ischemic attack) Smoker COPD with exacerbation Uncomplicated opioid dependence MRSA infection Cardiac arrest Atherosclerotic cardiovascular disease Rotator cuff arthropathy of both shoulders Cardiac defibrillator in place Surgical History History of colonoscopy History of repair of left rotator cuff S/P insertion of spinal cord stimulator Hx of fusion of cervical spine Hx of cardiac catheterization Status post subacromial decompression (~10/30/17) History of repair of right rotator cuff (~05/27/13) History of cholecystectomy History of back surgery Family History Mother Multiple sclerosis Father Diabetes Amputat leg, bilat-complicated Sister Lupus Social History Alcohol intake: never Patient Tobacco Use Status: Current everyday Tobacco user Tobacco use type: Cigarette Cigarette Packs Per Day: 0.5 Cigarettes Per Day: 10.0 Years Smoked: 42 e-Cigarette/Vaping Use: Currently Using service: No Cognitive needs: No Hearing needs: No Vision needs: No Office Procedures Cardiac Device Check Cardiac Device Check Details: Date of service 05/19/2023; Battery life 12 years; normal lead parameters; no treated VT/VF; ; normal ICD function. [id number] Cardiac Interrogation, implant defibrillator w/interim Procedure code (CPT) selection complete Assessment & Plan Assessment & Plan (1) Nonischemic cardiomyopathy: Code(s): I42.8 - Other cardiomyopathies Plan x Coding Level of Care Code Procedure Only Diagnoses Nonischemic cardiomyopathy I42.8 CPT Codes Cardiac Device Check - Cardiac Device 13: [id number] Cardiac Interrogation, implant defibrillator w/interim ([id number])
== END ==
PROVIDERS: PCP Internal Medicine; Visit Provider Internal Medicine
DX: I42.8 Other cardiomyopathies (principal)
CPT/HCPCS: 93295

== ENCOUNTER 2023-05-20 14:42 | Outpatient (AMB) | payer MEDICARE, MEDICAID, SELFPAY ==
[2023-05-20 14:51] VITALS: BP 116/82; PULSE 92; O2SAT 96; BMI 27.7
--- NOTE | 2023-05-20 14:51 | A.OFFPC_ITS ---
Vital Signs 05/20/23 14:51 Height 6 ft 2 in Weight 216 lb BMI 27.7 BP 116/82 Blood Pressure Location Lt brachial Position Sitting Pulse 92 Pulse Source Pulse Oximeter Pulse Oximetry (%) 96 Oxygen Delivery Method Room Air Intake Visit Reasons: F/U with HLD Intake Note: Patient is here to follow up on HLD [employer] Required: No Allergies bupropion [From Wellbutrin] Allergy (Intermediate, Verified 05/20/23 14:56) Hives, Rage varenicline [From Chantix] Allergy (Intermediate, Verified 05/20/23 14:56) Agitation, Aggression codeine [Codeine] Allergy (Mild, Verified 05/20/23 14:56) HIVES/ITCHING methadone [Methadone] Allergy (Mild, Verified 05/20/23 14:56) HIVES/ITCHING barium sulfate Allergy (Unknown, Verified 05/20/23 14:56) Unknown Black Pepper-Turmeric Allergy (Unknown, Uncoded 05/20/23 14:56) Unknown Medication List - Last Reconciled 05/20/23 by Sabina Colindres MD albuterol sulfate 90 mcg/actuation (Ventolin HFA) 2 puffs inhalation Q4-6H PRN aspirin (Adult Low Dose Aspirin) 81 mg PO DAILY atorvastatin 80 mg PO DAILY carvedilol 3.125 mg PO BID 90 days cholecalciferol (vitamin D3) 50 mcg PO DAILY lisinopril 5 mg PO DAILY naloxone 4 mg/actuation 4 mg intranasal Q3M PRN nitroglycerin 0.4 mg sublingual Q5M PRN spironolactone 25 mg PO DAILY tamsulosin (Flomax) 0.4 mg PO BEDTIME tramadol 50 mg PO DAILY PRN 30 days Tobacco use date assessed: 05/20/23 Dental Screening Dental Screen Date: 05/20/23 Did you have a dental visit in the last 12 months?: No Did you have a dental problem in the last 6 months where you did not have access to dental care?: No HPI F/U with HLD HPI Details 52-year-old overweight male smoker post laminectomy syndrome of the lumbar area hypercholesterolemia with coronary artery disease COPD and BPH coming in for follow-up. This the 1st time I am seeing the patient patient has cardiomyopathy and has the ICD being followed up for checking of the ICD. for the back pain- seen PAin managment- had multiple treatment but not effective . [facility] Medical History Nonischemic cardiomyopathy Back pain Hyperlipidemia Restrictive lung disease History of TIA (transient ischemic attack) Smoker COPD with exacerbation Uncomplicated opioid dependence MRSA infection Cardiac arrest Atherosclerotic cardiovascular disease Rotator cuff arthropathy of both shoulders Cardiac defibrillator in place Surgical History History of colonoscopy History of repair of left rotator cuff S/P insertion of spinal cord stimulator Hx of fusion of cervical spine Hx of cardiac catheterization Status post subacromial decompression (~10/30/17) History of repair of right rotator cuff (~05/27/13) History of cholecystectomy History of back surgery Family History Mother Multiple sclerosis Father Diabetes Amputat leg, bilat-complicated Sister Lupus Social History Alcohol intake: never Patient Tobacco Use Status: Current everyday Tobacco user Tobacco use type: Cigarette Cigarette Packs Per Day: 0.5 Cigarettes Per Day: 10.0 Years Smoked: 42 e-Cigarette/Vaping Use: Currently Using service: No Cognitive needs: No Hearing needs: No Vision needs: No Questionnaire Thrive Questionnaire Date Thrive assessed: 05/20/23 I am a: Patient What is your living situation today?: I have a steady place to live Within the past 12 months, did the food you bought not last and you didn't have the money to get more?: Never true Within the past 12 months, did you worry whether your food would run out before you got money to buy more?: Never true Do you have trouble paying for medicines?: No Do you have trouble getting transportation to medical appointments?: No Do you have trouble paying your heating and electricity bill?: No Do you have trouble taking care of your child, family member or friend?: No Do you have trouble with day-to-day activities such as bathing, preparing meals, shopping, managing finances, etc.?: No Are you currently unemployed and looking for a job?: No Are you interested in more education?: No Please select the resources that you would like help with: None THRIVE Score: 0 AUDIT C Alcohol Use Questionnaire (AUDIT-C) 1. How often do you have a drink containing alcohol?: Never 3. How often do you have six or more drinks on one occasion?: Never Total Score: 0 Score Reviewed/Action Taken: No COLETTE-7 AMB Questionnaire COLETTE-7 Date COLETTE - 7 assessed: 05/20/23 Source: Developed by Drs. King Macias, Melissa Aguilar, Mohan Lovett and colleagues, with an educational cosmo from [employer]. Physical exam (Primary Care) Vital Signs: Last Vital Signs Pulse 92 05/20/23 14:51 BP 116/82 05/20/23 14:51 Pulse Ox 96 05/20/23 14:51 Oxygen Delivery Method Room Air 05/20/23 14:51 BMI result Body Mass Index 27.7 Tobacco/Smoking Status: Tobacco use Status Tobacco use date assessed 05/20/23 05/20/23 14:58 Patient Tobacco Use Status Current everyday Tobacco 05/20/23 14:58 Tobacco use type Cigarette 05/20/23 14:58 e-Cigarette/Vaping Use Currently Using 05/20/23 14:58 Thrive Assessment: Date of Thrive Assessment Date Thrive assessed 05/20/23 05/20/23 14:58 Const General: alert; No acute distress Eyes Conjunctivae: conjunctivae normal Resp Auscultation: clear to auscultation bilaterally Cardio Rate: regular rate Rhythm: regular rhythm GI Inspection: Yes normal to inspection Extrem General: Yes normal to inspection and No edema Assessment and Plan Assessment & Plan (1) Atherosclerotic cardiovascular disease: Code(s): I25.10 - Atherosclerotic heart disease of [place] coronary artery without angina pectoris Plan: Control the cholesterol, weight, blood pressure continue with aspirin 81 mg once a day (2) COPD (chronic obstructive pulmonary disease): Comment: He has chronic obstructive pulmonary disease secondary to his ongoing smoking. However as per PFT. It is mild and his problem is mostly restrictive lung disease. [place] : ALBUTEROL HFA 2 PUFFS Q 4-6 HOURS P.R.N.. No need to use Wixela . Code(s): J44.9 - Chronic obstructive pulmonary disease, unspecified Plan: Patient follows up with Pulmonary and continue with the inhalers albuterol (3) Tobacco abuse: Code(s): Z72.0 - Tobacco use Plan: Patient is strongly advised to stop smoking! (4) Nonischemic cardiomyopathy: Code(s): I42.8 - Other cardiomyopathies Plan: Patient has the ICD and follows up with Cardiology patient is on carvedilol 3.125 mg twice a day lisinopril 5 mg once a day spironolactone 25 mg once a day (5) BPH (benign prostatic hyperplasia): Code(s): N40.0 - Benign prostatic hyperplasia without lower urinary tract symptoms Plan: Tamsulosin continue (6) Failed back syndrome, lumbar: Code(s): M96.1 - Postlaminectomy syndrome, not elsewhere classified (7) Hypertension: Code(s): I10 - Essential (primary) hypertension Plan: Continue with blood pressure medication on lisinopril 5 mg once a day and carvedilol 3.125 mg once a day (8) Hypercholesterolemia: Code(s): E78.00 - Pure hypercholesterolemia, unspecified Plan: Avoid fried foods, chicken skin, eggs, butter margarine, pastries and meat. Be it pork or beef they have a lot of cholesterol continue with atorvastatin 80 mg once a day Orders: Referrals Pain Management Referral M96.1 - Postlaminectomy syndrome, not elsewhere classified Medications: New tramadol 50 mg PO DAILY 30 days PRN 30 tabs 0RF pain M17.9 - Osteoarthritis of knee, unspecified, M96.1 - Postlaminectomy syndrome, not elsewhere classified Coding Level of Care Code Est Pt Level 4 (38666) Diagnoses Atherosclerotic cardiovascular disease I25.10 COPD (chronic obstructive pulmonary disease) J44.9 Tobacco abuse Z72.0 Nonischemic cardiomyopathy I42.8 BPH (benign prostatic hyperplasia) N40.0 Failed back syndrome, lumbar M96.1 Hypertension I10 Hypercholesterolemia E78.00
== END 2023-05-20 15:57 | disposition home or self-care (01) ==
PROVIDERS: PCP Nurse Practitioner Family; Visit Provider Internal Medicine
DX: I25.10 Atherosclerotic heart disease of native coronary artery without angina pectoris (principal); J44.9 Chronic obstructive pulmonary disease, unspecified; Z72.0 Tobacco use; I42.8 Other cardiomyopathies; N40.0 Benign prostatic hyperplasia without lower urinary tract symptoms; M96.1 Postlaminectomy syndrome, not elsewhere classified; I10 Essential (primary) hypertension; E78.00 Pure hypercholesterolemia, unspecified
CPT/HCPCS: 99214

== ENCOUNTER → 2023-05-30 13:40 | Outpatient (REF) | payer MEDICARE, MEDICAID, SELFPAY ==
--- NOTE | 2023-05-30 13:42 | CA_ITS ---
Transthoracic Echocardiogram Patient (Last, First, Middle): Daniel Agarwal A Gender: Male Date of : 1970 Age: 52 Procedure Date: 05/30/2023 Procedure Type: Transthoracic Echocardiogram Location: OP Height: 187.96 cm Weight: 97.98 kg BSA: 2.25 m2 Heart Rate: bpm BP: 126 / 78 mmHg Management Internship: TO Referring MD: Gunnar Tate MD Symptoms: I42.8 - Other cardiomyopathies Study Quality: Fair/Contrast Conclusions: - Mildly increased left ventricular cavity size. The left ventricular systolic function is severely decreased. The visually estimated ejection fraction is between 20-25%. - Normal right ventricular cavity size. There is mild to moderately decreased right ventricular systolic function. There is a pacemaker wire seen in the right ventricle. Findings Procedure Information Contrast agent, definity, is being given per protocol without apparent complications. Left Ventricle Mildly increased left ventricular cavity size. The left ventricular systolic function is severely decreased. The visually estimated ejection fraction is between 20-25%. There is severe global hypokinesis. Diastolic function is indeterminate on the basis of available data. Right Ventricle Normal right ventricular cavity size. There is mild to moderately decreased right ventricular systolic function. There is a pacemaker wire seen in the right ventricle. Atria The left atrium is likely dilated. The right atrium is normal in size. Aortic Valve There is a normal trileaflet aortic valve. There is no aortic valve stenosis. There is trace (trivial) aortic valve regurgitation. Mitral Valve The mitral valve appears normal. There is trace mitral valve regurgitation. There is no mitral valve stenosis. Pulmonic Valve The pulmonic valve is likely normal. Tricuspid Valve Normal tricuspid valve structure. There is no tricuspid valve regurgitation. Normal right atrial pressure. There is no evidence of pulmonary hypertension. Great Vessels All visible segments of the aorta are normal in size. Venous The inferior vena cava is normal in size and collapses greater than 50% with inspiration. Pericardium/Pleural There is no evidence of pericardial effusion. Prior Study Comparison Changes noted compared to prior study dated: 03/28/2022. EF 20-25%, RV mild to mod dysfunction. Measurements 2D Linear Measurements IVSd: 0.93 0.6-0.9/0.6-1.0 cm LVIDd: 5.63 3.9-5.3/4.2-5.9 cm LVIDd Index: 2.50 2.4-3.2/2.2-3.1 cm/m2 LVIDs: 4.54 2.0-3.6 cm LVPWd: 1.03 0.7-1.1 cm LV Mass: 269.32 67-162/88-224 g LV Mass Index: 119.70 43-95/49-115 g/m2 LVOT Diam: 2.30 3.0+(-)1.3 cm 2D Systolic Function EF 4C: 34.30 >55% EF 2C: 37.60 >55% EF BiP: 36.40 >55% Mitral Valve MV Pk E: 0.62 MV PK A: 0.70 MV Decel Time: 196.00 E/A: 0.90 E'Lateral: 6.74 E'Medial: 5.66 E/E' Med: 10.90 E/E' Lat: 9.20 PHT: 58.00 MVA PHT: 3.79 Decel Candler: 3.14 Aortic Valve AoV Pk Prabhakar: 1.30 AoV Mn Prabhakar: 0.93 AoV VTI: 0.25 AoV Pk Grad: 7.00 Aov Mn Grad: 4.00 SERGEI Cont.VTI: 2.66 LVOT LVOT Pk Prabhakar: 0.90 LVOT Mn Prabhakar: 0.57 LVOT VTI: 0.16 LVOT Pk Grad: 3.00 LVOT Mn Grad: 2.00 LVOT Diam: 2.30 LVOT Area: 4.15 Diastolic Function MV Pk E: 0.62 MV Pk A: 0.70 E/A: 0.90 E'Medial: 5.66 E/E' Med: 10.90 E' Laterial: 6.74 E/E' Lat: 9.20 Right Ventricle TAPSE (mm): 15.70 TVS' Prabhakar: 7.94 Tricuspid Valve TR Pk Prabhakar: 1.73 TR Pk Grad: 12.00 RA Press: 3.00 RVSP: 15.00 Great Vessels Aorta Sinus of Valsalva: 3.39 2.0-3.5 cm Ao Asc: 3.20 2.1-3.4 cm Updated in Other Vendor System with Status of Final Jcarlos Patterson MD electronically signed on 05/31/2023 6:42:59 PM with status of Final
== END ==
LOC: HO.CARD 13:40
PROVIDERS: PCP Internal Medicine; Visit Provider Internal Medicine
DX: I42.8 Other cardiomyopathies (principal)
CPT/HCPCS: 93306; Q9957

== ENCOUNTER → 2023-05-30 13:42 | Outpatient (BNV) | payer MEDICARE, MEDICAID, SELFPAY | PROVIDERS: PCP Internal Medicine; Visit Provider Internal Medicine Cardiovascular Disease | DX: I42.8 Other cardiomyopathies (principal); Z95.0 Presence of cardiac pacemaker | CPT/HCPCS: 93306 ==

== ENCOUNTER 2023-06-03 13:18 | Outpatient (AMB) | payer MEDICARE, MEDICAID, SELFPAY ==
[2023-06-03 13:22] VITALS: BP 110/70; PULSE 93; O2SAT 98; BMI 28.2
--- NOTE | 2023-06-03 13:22 | MHC.OFFVIS ---
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: No Allergies bupropion [From Wellbutrin] Allergy (Intermediate, Verified 06/03/23 13:38) Hives, Rage varenicline [From Chantix] Allergy (Intermediate, Verified 06/03/23 13:38) Agitation, Aggression codeine [Codeine] Allergy (Mild, Verified 06/03/23 13:38) HIVES/ITCHING methadone [Methadone] Allergy (Mild, Verified 06/03/23 13:38) HIVES/ITCHING barium sulfate Allergy (Unknown, Verified 06/03/23 13:38) Unknown Black Pepper-Turmeric Allergy (Unknown, Uncoded 06/03/23 13:38) Unknown Medication List - Last Reconciled 06/03/23 by Mare Escobar MD albuterol sulfate 90 mcg/actuation (Ventolin HFA) 2 puffs inhalation Q4-6H PRN aspirin (Adult Low Dose Aspirin) 81 mg PO DAILY atorvastatin 80 mg PO DAILY carvedilol 3.125 mg PO BID 90 days cholecalciferol (vitamin D3) 50 mcg PO DAILY lisinopril 5 mg PO DAILY naloxone 4 mg/actuation 4 mg intranasal Q3M PRN nitroglycerin 0.4 mg sublingual Q5M PRN spironolactone 25 mg PO DAILY tamsulosin (Flomax) 0.4 mg PO BEDTIME tramadol 50 mg PO DAILY PRN 30 days Do you need a note to return to daycare/school/sports/work: No HPI copd HPI Details 52 YEARS OLD GENTLEMAN IS HERE FOR 6 MONTHS FOLLOW-UP FOR HIS CHRONIC LUNG DISEASE, HE IS A LONG TIME SMOKER, NOW HAS CUT DOWN TO ABOUT 2-3 CIGARETTES A DAY. HE DOES ADMIT OF VAPING. HE HAS PAST HISTORY OF OPIOIDS ABUSE CURRENTLY CLEAN. HE HAS MILD INTERMITTENT COUGH AND GETS SHORT OF BREATH ON WALKING ESPECIALLY UP [place]. HIS SHORTNESS OF BREATH IS PARTLY DUE TO CARDIOMYOPATHY. HE IS LIVING RELATIVELY CLEAN LIFE AT PRESENT WITH HIS DAUGHTER LIVING IN THE SAME HOUSE. [facility] Medical History Nonischemic cardiomyopathy Back pain Hyperlipidemia Restrictive lung disease History of TIA (transient ischemic attack) Smoker COPD with exacerbation Uncomplicated opioid dependence MRSA infection Cardiac arrest Atherosclerotic cardiovascular disease Rotator cuff arthropathy of both shoulders Cardiac defibrillator in place Surgical History History of colonoscopy History of repair of left rotator cuff S/P insertion of spinal cord stimulator Hx of fusion of cervical spine Hx of cardiac catheterization Status post subacromial decompression (~10/30/17) History of repair of right rotator cuff (~05/27/13) History of cholecystectomy History of back surgery Family History Mother Multiple sclerosis Father Diabetes Amputat leg, bilat-complicated Sister Lupus Social History (Updated 06/03/23 @ 13:28 by Ya Glass [facility]) Alcohol intake: never Patient Tobacco Use Status: Current everyday Tobacco user Tobacco use type: Cigarette Cigarette Packs Per Day: 2 Cigarettes Per Day: 10.0 Years Smoked: 42 e-Cigarette/Vaping Use: Currently Using service: No Cognitive needs: No Hearing needs: No Vision needs: No Review of Systems Const All systems reviewed & are unremarkable except as noted in HPI and below Eyes Reports no additional complaints ENT Reports no additional complaints Card Denies chest pain at rest and Denies leg edema Resp Reports as per HPI GI Reports no additional complaints Reports no additional complaints Musc Reports no additional complaints Skin/Breast Reports system reviewed and no additional complaints, except as documented Neuro Reports no additional complaints Psych Reports no additional complaints Physical Exam Vital Signs: Last Vital Signs Pulse 93 06/03/23 13:22 BP 110/70 06/03/23 13:22 Pulse Ox 98 06/03/23 13:22 Oxygen Delivery Method Room Air 06/03/23 13:22 BMI result Body Mass Index 28.2 Const General: comfortable (Somewhat anxious), no acute distress, alert and awake Orientation/consciousness: patient oriented x3 HEENT Head: Yes normal to inspection General nose exam: No nasal polyps present and No nasal discharge present Face and sinus: Yes sinuses nontender Mouth: oropharynx normal Throat: Yes posterior oropharynx normal Eyes General: appearance normal, both eyes and all related structures Neck Neck: Yes normal visual inspection, Yes no lymphadenopathy, Yes trachea midline and Yes no JVD Thyroid: Thyroid normal Chest Chest palpation & inspection: normal inspection of the chest, normal palpation of entire chest wall and no tenderness Resp Other: Percussion note is resonant, breath sounds are slightly distant with prolonged expiratory phase. NO WHEEZES OR CREPITATIONS ARE HEARD. Cardio Palpation: normal PMI Rate: regular rate Rhythm: regular rhythm and other (Pacemaker battery in the left pectoral area) Heart sounds: no gallops and no murmurs GI Palpation (GI): Soft to palpation, nontender, No hepatosplenomegaly present and no masses Auscultation: normal bowel sounds Back/Spine/Pelvis Thoracic/Lumbar Spine: thoracic and lumbar spine normal to inspection and thoraco-lumbar ROM limited Skin Other: Extensive tattoos General skin exam: no rashes or lesions noted Neuro General: patient oriented x3 and no focal motor deficits Cranial nerves: Yes CN's II-XII intact bilaterally Extrem General: Yes normal to inspection, Yes no clubbing, cyanosis or edema and Yes no calf tenderness Psych Appearance: grossly normal and well kempt Speech and movement: Normal speech and movement present Assessment & Plan Assessment & Plan (1) Cigarette nicotine dependence: Comment: He has history of long-time smoking 42 years x half pack a day, now down to 2-3 cigarettes a day. He is also using electronic cigarettes. Code(s): F17.210 - Nicotine dependence, cigarettes, uncomplicated Plan: Counseled to quit completely. Educated and warned against the use of electronic cigarettes Patient referred for annual lung screening program (2) COPD (chronic obstructive pulmonary disease): Comment: He has chronic obstructive pulmonary disease secondary to his ongoing smoking. However as per PFT. It is mild and his problem is mostly restrictive lung disease. Code(s): J44.9 - Chronic obstructive pulmonary disease, unspecified Plan: TX : ALBUTEROL HFA 2 PUFFS Q 4-6 HOURS P.R.N.. Orders: Referrals Thoracic Surgery Referral F17.210 - Nicotine dependence, cigarettes, uncomplicated, J44.9 - Chronic obstructive pulmonary disease, unspecified Coding Level of Care Code Est Pt Level 3 (73961) Diagnoses Cigarette nicotine dependence F17.210 COPD (chronic obstructive pulmonary disease) J44.9
== END 2023-06-03 14:24 | disposition home or self-care (01) ==
PROVIDERS: PCP Nurse Practitioner Family; Visit Provider Internal Medicine
DX: F17.210 Nicotine dependence, cigarettes, uncomplicated (principal); J44.9 Chronic obstructive pulmonary disease, unspecified
CPT/HCPCS: 99213

== ENCOUNTER → 2023-06-03 13:18 | Outpatient (BNVA) | payer MEDICARE, MEDICAID, SELFPAY | PROVIDERS: PCP Nurse Practitioner Family; Visit Provider Internal Medicine | DX: J44.9 Chronic obstructive pulmonary disease, unspecified (principal); F17.210 Nicotine dependence, cigarettes, uncomplicated | CPT/HCPCS: 99212 ==

== ENCOUNTER 2023-06-10 14:13 | Outpatient (AMB) | payer MEDICARE, MEDICAID, SELFPAY ==
[2023-06-10 14:17] VITALS: BP 114/70; PULSE 86; BMI 28.1
--- NOTE | 2023-06-10 14:17 | A.OFFVIS_ITS ---
Intake Vital Signs 06/10/23 14:17 Height 6 ft 2 in Weight 218 lb 11.177 oz BMI 28.1 BP 114/70 Blood Pressure Location Lt brachial Position Sitting Pulse 86 Pulse Source Pulse Oximeter Intake Visit Reasons: 6 month follow up after echo (HS) Allergies bupropion [From Wellbutrin] Allergy (Intermediate, Verified 06/10/23 14:20) Hives, Rage varenicline [From Chantix] Allergy (Intermediate, Verified 06/10/23 14:20) Agitation, Aggression codeine [Codeine] Allergy (Mild, Verified 06/10/23 14:20) HIVES/ITCHING methadone [Methadone] Allergy (Mild, Verified 06/10/23 14:20) HIVES/ITCHING barium sulfate Allergy (Unknown, Verified 06/10/23 14:20) Unknown Black Pepper-Turmeric Allergy (Unknown, Uncoded 06/10/23 14:20) Unknown Medication List - Last Reconciled 06/10/23 by LIMA Nelson albuterol sulfate 90 mcg/actuation (Ventolin HFA) 2 puffs inhalation Q4-6H PRN aspirin (Adult Low Dose Aspirin) 81 mg PO DAILY atorvastatin 80 mg PO DAILY carvedilol 3.125 mg PO BID 90 days cholecalciferol (vitamin D3) 50 mcg PO DAILY nitroglycerin 0.4 mg sublingual Q5M PRN spironolactone 25 mg PO DAILY tamsulosin (Flomax) 0.4 mg PO BEDTIME tramadol 50 mg PO DAILY PRN 30 days HPI 6 month follow up after echo (HS) HPI Details Daniel is a 52-year-old male with past medical history of hypertension, hyperlipidemia, nonischemic cardiomyopathy, cardiac arrest 2019, STEMI, cardiac catheterization showing no culprit, status post ICD who presents for follow-up after recent echocardiogram. Today he reports that he has been doing generally well. He continues to have issues with dizziness with quick position changes and when he initially lays down in bed. He tried holding his lisinopril but it did not make any difference in this symptom. He has no chest discomfort at rest or with activity. He does have some shortness of breath with exertional activities. He is mostly sedentary. He has chronic back pain which limits his physical activity. No palpitations, lightheadedness, presyncope, syncope, falls. No PND, orthopnea or edema. He does have daytime sleepiness and needs to take naps. He has not had any ICD shocks. Taking meds as directed. Daughter is present and she tells me she has witnessed him to have apnea during sleep. [facility], [facility] Medical History History of TIA (transient ischemic attack) (~2013) History of cardiac arrest (~2019) Cardiac defibrillator in place Nonischemic cardiomyopathy Atherosclerotic cardiovascular disease Hypertension Hypercholesterolemia Restrictive lung disease COPD (chronic obstructive pulmonary disease) Cigarette nicotine dependence Nicotine dependence, cigarettes, uncomplicated Uncomplicated opioid dependence Chronic pain syndrome Rotator cuff arthropathy of both shoulders MRSA infection Surgical History History of implantable cardiac defibrillator (ICD) History of cardiac cath S/P insertion of spinal cord stimulator History of back surgery History of fusion of cervical spine History of repair of left rotator cuff History of repair of right rotator cuff (~05/27/13) History of cholecystectomy History of colonoscopy Family History Mother Multiple sclerosis Father Diabetes Amputat leg, bilat-complicated Sister Lupus Social History Alcohol intake: never Patient Tobacco Use Status: Current everyday Tobacco user Tobacco use type: Cigarette Cigarette Packs Per Day: 2 Cigarettes Per Day: 10.0 Years Smoked: 42 e-Cigarette/Vaping Use: Currently Using service: No Cognitive needs: No Hearing needs: No Vision needs: No Review of Systems Const Details: Daytime sleepiness All systems reviewed & are unremarkable except as noted in HPI and below Reports fatigue ENT Denies dizziness Card Denies chest pain, Denies chest pain at rest, Denies chest pain with activity, Denies rapid heart rate, Denies pedal edema, Denies edema, Denies leg edema, Denies lightheadedness, Denies palpitations, Reports dyspnea, Reports dyspnea on exertion and Denies orthopnea Resp Denies cough, Reports dyspnea and Reports dyspnea on exertion GI Denies hematochezia and Denies change in stool character Musc Denies abnormal gait, Denies limited range of motion, Denies muscle cramps, Denies muscle weakness, Denies numbness, Denies radiating pain into limb, Denies stiffness and Denies tingling Neuro Denies abnormal gait, Denies dizziness, Denies numbness and Denies tingling Endo Reports fatigue and Denies palpitations Physical Exam Vital Signs: Last Vital Signs Pulse 86 06/10/23 14:17 BP 114/70 06/10/23 14:17 BMI result Body Mass Index 28.1 Const General: cooperative, healthy appearing, comfortable and no acute distress Orientation/consciousness: patient oriented x3 Neck Neck: Yes normal visual inspection Resp Effort & Inspection: normal respiratory effort Auscultation: clear to auscultation bilaterally, no crackles, no rales, no rhonchi and no wheezes Cardio Jugular venous distension: no JVD Rate: regular rate Rhythm: regular rhythm Heart sounds: S1 normal heart sound present, S2 normal heart sound present, no murmurs and no rubs Neuro General: patient oriented x3 Extrem General: Yes normal to inspection and No no pedal edema Psych Appearance: grossly normal Mental Status: mental status grossly normal Speech and movement: Normal speech and movement present Assessment & Plan Assessment & Plan (1) Atherosclerotic cardiovascular disease: Code(s): I25.10 - Atherosclerotic heart disease of [place] coronary artery without angina pectoris Plan: Notes indicate history of STEMI 2019 with cardiac arrest, VF/VT. He did undergo cardiac catheterization at that time with no culprit lesion. Echocardiogram has shown reduced EF. He did have nonischemic cardiomyopathy prior to his cardiac arrest as well. An echocardiogram was done 03/28/2022 showing EF 35-40%. Repeat echo done 05/30/2023 shows EF 20-25%, global hypokinesis, [id number] decrease in the RV systolic function. He has been on carvedilol and lisinopril for neurohormonal modulation. He does report issues with lightheadedness which is not new. He held lisinopril and it did not help his symptom. His blood pressure is on the low side however not hypotensive. He denies any anginal symptoms. To further evaluate drop in EF will check a pharmacological nuclear stress test. He tells me he is unable to exercise on the treadmill due to chronic back pain. He also reports hypersomnia and daughter reports witnessed sleep apnea. Will check a home sleep study to evaluate for sleep apnea. This may contribute to his reduced EF as well. Continue current med management. If he continues to have lightheadedness he can trial a hold of Aldactone. It is possible his symptom may be related to vertigo as well. Cardiology follow-up once test results are available. (2) History of cardiac arrest: Onset Date: ~2019 Comment: (cardiac arrest - VF/VT 2019 - s/p ICD) Code(s): Z86.74 - Personal history of sudden cardiac arrest Plan: As above (3) Cardiac defibrillator in place: Comment: (s/p cardiac arrest 2019) Code(s): Z95.810 - Presence of automatic (implantable) cardiac defibrillator Plan: [employer] ICD in place. Will try to arrange office interrogation next visit. Remote monitoring in use. (4) Hypersomnia: Code(s): G47.10 - Hypersomnia, unspecified Plan: Sleep study ordered (5) Cardiomyopathy: Code(s): I42.9 - Cardiomyopathy, unspecified Plan: As above with recent drop in EF. No clinical signs of heart failure on examination. Plan Time spent on chart review, documentation, interview and assessment Orders: Orders NM cardiolite stress test Today I42.9 - Cardiomyopathy, unspecified CA lexiscan stress w earl Today I25.10 - Atherosclerotic heart disease of [place] coronary artery without angina pectoris, I42.9 - Cardiomyopathy, unspecified, Z95.810 - Presence of automatic (implantable) cardiac defibrillator RT home sleep study Today G47.10 - Hypersomnia, unspecified Coding Level of Care Code Est Pt Level 4 (03994) Diagnoses Atherosclerotic cardiovascular disease I25.10 History of cardiac arrest Z86.[address] Z95.810 Hypersomnia G47.10 Cardiomyopathy I42.9 Time Spent (min) 32
== END 2023-06-10 14:47 | disposition home or self-care (01) ==
PROVIDERS: PCP Internal Medicine; Visit Provider Nurse Practitioner Family
DX: I25.10 Atherosclerotic heart disease of native coronary artery without angina pectoris (principal); Z86.74 Personal history of sudden cardiac arrest; Z95.810 Presence of automatic (implantable) cardiac defibrillator; G47.10 Hypersomnia, unspecified; I42.9 Cardiomyopathy, unspecified
CPT/HCPCS: 99214

== ENCOUNTER → 2023-06-10 14:13 | Outpatient (BNVA) | payer MEDICARE, MEDICAID, SELFPAY | PROVIDERS: PCP Internal Medicine; Visit Provider Nurse Practitioner Family | DX: I25.10 Atherosclerotic heart disease of native coronary artery without angina pectoris (principal); I42.9 Cardiomyopathy, unspecified; G47.10 Hypersomnia, unspecified; Z95.810 Presence of automatic (implantable) cardiac defibrillator; Z86.74 Personal history of sudden cardiac arrest | CPT/HCPCS: 99212 ==

== ENCOUNTER 2023-06-17 14:59 | Outpatient (AMB) | payer MEDICARE, MEDICAID, SELFPAY ==
[2023-06-17 15:12] VITALS: BP 138/80; PULSE 84; O2SAT 98; BMI 27.7
--- NOTE | 2023-06-17 15:12 | MHC.PC.OV ---
Vital Signs 06/17/23 15:12 Height 6 ft 2 in Weight 216 lb BMI 27.7 BP 138/80 Blood Pressure Location Lt brachial Position Sitting Pulse 84 Pulse Source Pulse Oximeter Pulse Oximetry (%) 98 Oxygen Delivery Method Room Air Intake Visit Reasons: Failed back syndrome Allergies bupropion [From Wellbutrin] Allergy (Intermediate, Verified 06/17/23 15:12) Hives, Rage varenicline [From Chantix] Allergy (Intermediate, Verified 06/17/23 15:12) Agitation, Aggression codeine [Codeine] Allergy (Mild, Verified 06/17/23 15:12) HIVES/ITCHING methadone [Methadone] Allergy (Mild, Verified 06/17/23 15:12) HIVES/ITCHING barium sulfate Allergy (Unknown, Verified 06/17/23 15:12) Unknown Black Pepper-Turmeric Allergy (Unknown, Uncoded 06/17/23 15:12) Unknown Tobacco use date assessed: 06/17/23 Dental Screening Dental Screen Date: 06/17/23 Did you have a dental visit in the last 12 months?: Yes Did you have a dental problem in the last 6 months where you did not have access to dental care?: No Was dental information given to patient?: Patient has dentist HPI Failed back syndrome HPI Details 52-year-old overweight male smoker with a history of coronary artery disease COPD nonischemic cardiomyopathy BPH hypertension hypercholesterolemia with a failed back syndrome. Patient has related he has been seen by the pain management and could not do any other thing except for medication for pain. Patient was placed on tramadol. Review of the notes has seen Cardiology in June 09 concerns about sleep apnea repeat echo in May 2023 EF of 20- 25% global hypokinesis mild to moderate decrease in RV function patient will have pharmacological nuclear stress test advised to get sleep study. Patient also follows up with Pulmonary of course advised to quit smoking. Referred to thoracic surgeon. Echocardiogram done May 2023- Mildly increased left ventricular cavity size. The left ventricular systolic function is severely decreased. The visually estimated ejection fraction is between 20-25%. - Normal right ventricular cavity size. There is mild to moderately decreased right ventricular systolic function. There is a pacemaker wire seen in the right ventricle. July 14 stress test sleep study July 16, , July 10 CT chest ff up July [facility] Medical History (Updated 06/17/23 @ 15:59 by Sabina Colindres MD) Hyperlipidemia History of TIA (transient ischemic attack) (~2013) History of cardiac arrest (~2019) Cardiac defibrillator in place Nonischemic cardiomyopathy Atherosclerotic cardiovascular disease Hypertension Hypercholesterolemia Restrictive lung disease COPD (chronic obstructive pulmonary disease) Cigarette nicotine dependence Nicotine dependence, cigarettes, uncomplicated Uncomplicated opioid dependence Chronic pain syndrome Rotator cuff arthropathy of both shoulders MRSA infection Surgical History History of implantable cardiac defibrillator (ICD) History of cardiac cath S/P insertion of spinal cord stimulator History of back surgery History of fusion of cervical spine History of repair of left rotator cuff History of repair of right rotator cuff (~05/27/13) History of cholecystectomy History of colonoscopy Family History (Updated 06/17/23 @ 15:13 by Caryn Moya CMA) Mother Multiple sclerosis Father Diabetes Amputat leg, bilat-complicated Sister Lupus Social History Alcohol intake: never Patient Tobacco Use Status: Current everyday Tobacco user Tobacco use type: Cigarette Cigarette Packs Per Day: 2 Cigarettes Per Day: 10.0 Years Smoked: 42 e-Cigarette/Vaping Use: Currently Using service: No Cognitive needs: No Hearing needs: No Vision needs: No Questionnaire PHQ-9 Over the last 2 weeks, how often have you been bothered by any of the following problems? 1. Little interest or pleasure in doing things: not at all 2. Feeling down, depressed, or hopeless: several days 3. Trouble falling or staying asleep, or sleeping too much: more than half the days 4. Feeling tired or having little energy: nearly every day 5. Poor appetite or overeating: not at all 6. Feeling bad about yourself - or that you are a failure or have let yourself or your family down: more than half the days 7. Trouble concentrating on things, such as reading the newspaper or watching television: more than half the days 8. Moving or speaking so slowly that other people could have noticed. Or the opposite - being so fidgety or restless that you have been moving around a lot more than usual: not at all 9. Thoughts that you would be better off or of hurting yourself in some way: not at all Total score: 10 Depression Screening Interpretation: Negative Depression Screening Done: Yes 92483 - PHQ-9 Billing: Yes Source: Developed by Drs. King Macias, Melissa Aguilar, Mohan Lovett and colleagues, with an educational cosmo from [employer]. Thrive Questionnaire Date Thrive assessed: 06/17/23 I am a: Patient What is your living situation today?: I have a steady place to live Within the past 12 months, did the food you bought not last and you didn't have the money to get more?: Never true Within the past 12 months, did you worry whether your food would run out before you got money to buy more?: Never true Do you have trouble paying for medicines?: No Do you have trouble getting transportation to medical appointments?: No Do you have trouble paying your heating and electricity bill?: No Do you have trouble taking care of your child, family member or friend?: No Do you have trouble with day-to-day activities such as bathing, preparing meals, shopping, managing finances, etc.?: No Are you currently unemployed and looking for a job?: No Are you interested in more education?: No Please select the resources that you would like help with: None Currently or been in a relationship where the following occur: no concerns reported THRIVE Score: 0 AUDIT C Alcohol Use Questionnaire (AUDIT-C) 1. How often do you have a drink containing alcohol?: Never 3. How often do you have six or more drinks on one occasion?: Never Total Score: 0 Score Reviewed/Action Taken: No COLETTE-7 AMB Questionnaire COLETTE-7 Date COLETTE - 7 assessed: 06/17/23 Feeling nervous, anxious, or on edge: 1 = Several days Not being able to stop or control worryin = Several days Worrying too much about different things: 1 = Several days Trouble relaxin = Several days Being so restless that it is hard to sit still: 1 = Several days Becoming easily annoyed or irritable: 1 = Several days Feeling afraid as if something awful might happen: 1 = Several days Total COLETTE-7 score (0-4 normal; 5-9 mild; 10-14 moderate; 15-21 severe): 7 Source: Developed by Melissa Arzate, Mohan Lovett and colleagues, with an educational cosmo from [employer]. Physical exam (Primary Care) Vital Signs: Last Vital Signs Pulse 84 06/17/23 15:12 BP 138/80 06/17/23 15:12 Pulse Ox 98 06/17/23 15:12 Oxygen Delivery Method Room Air 06/17/23 15:12 BMI result Body Mass Index 27.7 Tobacco/Smoking Status: Tobacco use Status Tobacco use date assessed 06/17/23 06/17/23 15:14 Patient Tobacco Use Status Current everyday Tobacco 06/17/23 15:14 Tobacco use type Cigarette 06/17/23 15:14 e-Cigarette/Vaping Use Currently Using 06/17/23 15:14 PHQ-9: PHQ-9 Score PHQ-9: Total score 10 06/17/23 15:22 Depression Screening Interpretation: Negative Thrive Assessment: Date of Thrive Assessment Date Thrive assessed 06/17/23 06/17/23 15:14 Currently or been in a relationship where the following occur: no concerns reported Const General: alert; No acute distress Eyes Conjunctivae: conjunctivae normal Resp Auscultation: clear to auscultation bilaterally Cardio Rate: regular rate Rhythm: regular rhythm GI Inspection: Yes normal to inspection Extrem General: Yes normal to inspection and No edema Assessment and Plan Assessment & Plan (1) Cardiomyopathy: Code(s): I42.9 - Cardiomyopathy, unspecified Plan: Patient has seen Cardiology and pharmacological stress test requested (2) Atherosclerotic cardiovascular disease: Code(s): I25.10 - Atherosclerotic heart disease of [place] coronary artery without angina pectoris Plan: Control the cholesterol, weight, blood pressure, on aspirin 81 mg once a day (3) Hypertension: Code(s): I10 - Essential (primary) hypertension Plan: Continue with blood pressure medication. Decrease salt intake and exercise carvedilol 3.125 mg twice a day spironolactone 25 mg once a day (4) Hypercholesterolemia: Code(s): E78.00 - Pure hypercholesterolemia, unspecified Plan: Avoid fried foods, chicken skin, eggs, butter margarine, pastries and meat. Be it pork or beef they have a lot of cholesterol LDL goal of less than 70 on atorvastatin 80 mg once a day triglyceride goal of less than 150. (5) COPD (chronic obstructive pulmonary disease): Comment: He has chronic obstructive pulmonary disease secondary to his ongoing smoking. However as per PFT. It is mild and his problem is mostly restrictive lung disease. Code(s): J44.9 - Chronic obstructive pulmonary disease, unspecified Plan: Patient has met with Pulmonary and did show a mild obstructive mostly restrictive lung disease on Ventolin (6) Failed back syndrome, lumbar: Code(s): M96.1 - Postlaminectomy syndrome, not elsewhere classified Plan: placed on tramadol patient feels this is not helping. Advised patient to follow-up with pain management and let them recommend starter medication so I can continue. Medications: New albuterol sulfate 90 mcg/actuation (Ventolin HFA) 2 puffs inhalation Q4-6H PRN 8.5 grams 0RF Wheezing Coding Level of Care Code Est Pt Level 4 (71852) Diagnoses Cardiomyopathy I42.9 Atherosclerotic cardiovascular disease I25.10 Hypertension I10 Hypercholesterolemia E78.00 COPD (chronic obstructive pulmonary disease) J44.9 Failed back syndrome, lumbar M96.1
== END 2023-06-17 17:21 | disposition home or self-care (01) ==
PROVIDERS: PCP Internal Medicine; Visit Provider Internal Medicine
DX: I42.9 Cardiomyopathy, unspecified (principal); J44.9 Chronic obstructive pulmonary disease, unspecified; I25.10 Atherosclerotic heart disease of native coronary artery without angina pectoris; I10 Essential (primary) hypertension; E78.00 Pure hypercholesterolemia, unspecified; M96.1 Postlaminectomy syndrome, not elsewhere classified
CPT/HCPCS: 99214

== ENCOUNTER 2023-07-03 10:52 | Outpatient (AMB) | payer MEDICARE, MEDICAID, SELFPAY ==
--- NOTE | 2023-07-03 11:02 | MHC.OFFVIS ---
Vital Signs 07/03/23 11:16 Height 6 ft 2 in Weight 220 lb BMI 28.2 BP 134/80 Blood Pressure Location Lt brachial Position Sitting Respiration 16 Pulse 84 Pulse Source Pulse Oximeter Pulse Oximetry (%) 95 Oxygen Delivery Method Room Air Intake Visit Reasons: MEDICATION DISCUSSION Intake Note: Patient comes in to discuss medication. Reports pain 10/10. Allergies bupropion [From Wellbutrin] Allergy (Intermediate, Verified 07/03/23 11:16) Hives, Rage varenicline [From Chantix] Allergy (Intermediate, Verified 07/03/23 11:16) Agitation, Aggression codeine [Codeine] Allergy (Mild, Verified 07/03/23 11:16) HIVES/ITCHING methadone [Methadone] Allergy (Mild, Verified 07/03/23 11:16) HIVES/ITCHING barium sulfate Allergy (Unknown, Verified 07/03/23 11:16) Unknown Black Pepper-Turmeric Allergy (Unknown, Uncoded 06/17/23 15:12) Unknown HPI Comments Details: Daniel is back in my office with the request to start him on chronic opioid therapy. He is already on opioids with Dr. Colindres. He is receiving tramadol 50 mg q.d.. He reports that tramadol helps him to sleep. I pointed out to him that tramadol is opioid medication. I pointed out to him that having a good night's sleep positively effects chronic pain. In the past he was a subject of multiple attempts of treat his postlaminectomy syndrome pain. We tried spinal cord stimulator on him, we tried several medications as a trial of pain pump including morphine, Dilaudid, bupivacaine. He had extensive itching on morphine he had side effects on Dilaudid he had urinary retention on bupivacaine. Unfortunately at this moment I can not offer him much more than that. He points out to me that only oxycodone and only in significant doses will be a good medication for him. He sided that in the past he was on 80 mg of OxyContin additional doses of the oxycodone, he was on 30 mg of oxycodone several times a day in the past under care of Dr. Paiz. I feel very uncomfortable starting him on the medication he is so insistent to be on. I do not think that he has a good candidate for chronic opioid program. The longer we have this conversation the more pressured his speech becomes and he looks more agitated discussing trivial issues of chronic medication administration. [facility] Medical History (Updated 06/17/23 @ 15:59 by Sabina Colindres MD) Hyperlipidemia History of TIA (transient ischemic attack) (~2013) History of cardiac arrest (~2019) Cardiac defibrillator in place Nonischemic cardiomyopathy Atherosclerotic cardiovascular disease Hypertension Hypercholesterolemia Restrictive lung disease COPD (chronic obstructive pulmonary disease) Cigarette nicotine dependence Nicotine dependence, cigarettes, uncomplicated Uncomplicated opioid dependence Chronic pain syndrome Rotator cuff arthropathy of both shoulders MRSA infection Surgical History History of implantable cardiac defibrillator (ICD) History of cardiac cath S/P insertion of spinal cord stimulator History of back surgery History of fusion of cervical spine History of repair of left rotator cuff History of repair of right rotator cuff (~05/27/13) History of cholecystectomy History of colonoscopy Family History (Updated 06/17/23 @ 15:13 by Caryn Moya CMA) Mother Multiple sclerosis Father Diabetes Amputat leg, bilat-complicated Sister Lupus Social History Alcohol intake: never Patient Tobacco Use Status: Current everyday Tobacco user Tobacco use type: Cigarette Cigarette Packs Per Day: 2 Cigarettes Per Day: 10.0 Years Smoked: 42 e-Cigarette/Vaping Use: Currently Using service: No Cognitive needs: No Hearing needs: No Vision needs: No Review of Systems Const All systems reviewed & are unremarkable except as noted in HPI and below Physical Exam Vital Signs: Last Vital Signs Pulse 84 07/03/23 11:16 Resp 16 07/03/23 11:16 BP 134/80 07/03/23 11:16 Pulse Ox 95 07/03/23 11:16 Oxygen Delivery Method Room Air 07/03/23 11:16 BMI result Body Mass Index 28.2 Const General: cooperative, well developed, alert and awake; No no acute distress Orientation/consciousness: patient oriented x3 Neck Other: Right-sided anterior neck scar delineating anterior fusion C4 through C6 is well-healed. The posterior midline scar from C2 through C5 approximately also very well-healed Back/Spine/Pelvis Other: Very well-healed anterior and posterior scars delineating previous fusions of the lower lumbar spine Neuro General: patient oriented x3 Results Reviewed Results Reviewed: Reviewed imaging including CT of the abdomen/pelvis from 2019 which showed lumbar spine fusion hardware in place with intact intralaminar space [id number]. Assessment & Plan Assessment & Plan (1) BPH (benign prostatic hyperplasia): Code(s): N40.0 - Benign prostatic hyperplasia without lower urinary tract symptoms Category: Medical (2) Failed back syndrome, lumbar: Code(s): M96.1 - Postlaminectomy syndrome, not elsewhere classified Category: Medical (3) Failed back syndrome, cervical: Code(s): M96.1 - Postlaminectomy syndrome, not elsewhere classified Category: Medical (4) Chronic pain syndrome: Code(s): G89.4 - Chronic pain syndrome Category: Medical Plan Nevro SCS trial resulted in no pain improvement at all. Two trials of intrathecal pain pump 1 with 90 micro g of Dilaudid (Dilaudid pump resulted in 3 different side effects including itching, urine retention, nausea and vomiting, it was 90 micro g of Dilaudid injected in the CSF); trial of 70 micro g of morphine (greatly reduced dose of morphine ) resulted in urinary retention and itching. Patient has enlarged prostate, which contribute to the urinary retention . Bupivacain pain pump trial resulted in appropriate numbness sensation but only minimal pain reduction. Unfortunately minimal dose of fentanyl resulted in severe itching. Baclofen trial no side effects but patient denies any pain improvement. Does not want to consider Prialt due to perceivable cost. Came today to discuss chronic opioid therapy. Unfortunately the doses he wants me to prescribe him are very uncomfortable for me. I do not think I can consider starting him on oxycodone 30 mg several times a day. The longer we discuss the issue the more irritated he becomes, the pressured speech appeared. He reports the trivial doses of the oxycodone ?will not be working for me . He reports that he tried buprenorphine in the past and this is not working for him at the same time now he reports that he receives good pain relief and good night sleep from tramadol. It is very difficult to distinguish the effects of the opioids medication on the patient's ventral tegmental area with resulting dopamine release and induced sensation of well being and relaxation versus actual pain relief on view opioid receptors and arrest of the propagation of the painful stimuli via action on the calcium channels. If any recommendations from me would be asked I would recommend to continue tramadol with possible increase of the dose several times a day. Patient Instructions: I here by testify that I spent 38 minutes in conversation with this patient as well as evaluating my prior records and organizing this note. Coding Level of Care Code Est Pt Level 4 (13397) Diagnoses BPH (benign prostatic hyperplasia) N40.0 Failed back syndrome, lumbar M96.1 Failed back syndrome, cervical M96.1 Chronic pain syndrome G89.4
[2023-07-03 11:16] VITALS: BP 134/80; PULSE 84; RESP 16; O2SAT 95; BMI 28.2
== END 2023-07-03 11:47 | disposition home or self-care (01) ==
PROVIDERS: PCP Internal Medicine; Visit Provider Anesthesiology
DX: N40.0 Benign prostatic hyperplasia without lower urinary tract symptoms (principal); M96.1 Postlaminectomy syndrome, not elsewhere classified; G89.4 Chronic pain syndrome
CPT/HCPCS: 99214

== ENCOUNTER → 2023-07-03 10:52 | Outpatient (BNVA) | payer MEDICARE, MEDICAID, SELFPAY | PROVIDERS: PCP Internal Medicine; Visit Provider Anesthesiology | DX: N40.0 Benign prostatic hyperplasia without lower urinary tract symptoms (principal); M96.1 Postlaminectomy syndrome, not elsewhere classified; G89.4 Chronic pain syndrome | CPT/HCPCS: 99212 ==

== ENCOUNTER 2023-07-10 10:38 | Outpatient (AMB) | payer MEDICARE, MEDICAID, SELFPAY ==
--- NOTE | 2023-07-10 08:47 | A.OFFVIS_ITS ---
Intake Visit Reasons: Current Smoker Allergies bupropion [From Wellbutrin] Allergy (Intermediate, Verified 07/03/23 11:16) Hives, Rage varenicline [From Chantix] Allergy (Intermediate, Verified 07/03/23 11:16) Agitation, Aggression codeine [Codeine] Allergy (Mild, Verified 07/03/23 11:16) HIVES/ITCHING methadone [Methadone] Allergy (Mild, Verified 07/03/23 11:16) HIVES/ITCHING barium sulfate Allergy (Unknown, Verified 07/03/23 11:16) Unknown Black Pepper-Turmeric Allergy (Unknown, Uncoded 06/17/23 15:12) Unknown HPI HPI Current Smoker: Details: Initial visit for this 52yo smoker with a 30+PYH. Patient has been smoking since age 9 for 42 years at mainly 1/2ppd. Max 3ppd Now down to 2-3 cigarettes a day. Also using E-cig. . Denies marijuana use. Denies second hand smoke exposure. Denies exposure to asbestos. . Denies known family history of lung cancer. Denies personal history of cancers. Denies chest CT in last year. . Denies recent travel outside the [place]. Denies recent respiratory illness or recent hospitalization for respiratory issues. Denies testing positive for COVID. Admits receiving COVID Vaccine x2. . History TIA around 2013 and history cardiac arrest with ICD placed 2019. Denies fever, chills, new/worsening cough, hemoptysis, hoarseness or dysphagia. Denies significant chest pain, significant dyspnea or unintentional weight loss. Patient Lung Cancer Screening Questionnaire reviewed with patient by provider. . Shared Decision Making Completed. Patient meets criteria. Discussed in detail with patient, the risk vs benefit of LDCT screening. Patient consents to proceed with scan. Discussed smoking cessation. [facility] Medical History (Updated 07/10/23 @ 10:37 by Malika Dewitt PA-C) Hyperlipidemia History of TIA (transient ischemic attack) (~2013) History of cardiac arrest (~2019) Cardiac defibrillator in place Nonischemic cardiomyopathy Atherosclerotic cardiovascular disease Hypertension Hypercholesterolemia Restrictive lung disease COPD (chronic obstructive pulmonary disease) Cigarette nicotine dependence Nicotine dependence, cigarettes, uncomplicated Uncomplicated opioid dependence Chronic pain syndrome Rotator cuff arthropathy of both shoulders MRSA infection Surgical History (Updated 07/10/23 @ 10:39 by Malika M May, PA-C) History of implantable cardiac defibrillator (ICD) History of cardiac cath S/P insertion of spinal cord stimulator History of back surgery History of fusion of cervical spine History of repair of left rotator cuff History of repair of right rotator cuff History of cholecystectomy History of colonoscopy Family History (Updated 06/17/23 @ 15:13 by Caryn Moya CMA) Mother Multiple sclerosis Father Diabetes Amputat leg, bilat-complicated Sister Lupus Social History (Updated 07/10/23 @ 10:38 by Malika Dewitt PA-C) Alcohol intake: never Patient Tobacco Use Status: Current everyday Tobacco user Tobacco use type: Cigarette Cigarettes Per Day: 2 Years Smoked: (onset 9yo, 1/2-3ppd x 42yrs, now <1/4ppd - 30+PYH) e-Cigarette/Vaping Use: Currently Using service: No Cognitive needs: No Hearing needs: No Vision needs: No Telehealth Telehealth Telehealth Platform: Telephone Location of provider rendering services: practice address Location of patient: address on file Patient Identification confirmed using: Name, : Yes Telehealth method: voice only Patient verbally consented to treatment: Yes Patient verbally consented to billing insurance company: Yes Patient informed of any privacy concerns related to visit: Yes Minutes spent on Phone/Video with Pt.: 15 Assessment & Plan Assessment & Plan (1) Nicotine dependence, cigarettes, uncomplicated: Comment: (current smoker - onset 9yo, 1/2-3ppd x 42yrs, now <1/4ppd - 30+PYH) Code(s): F17.210 - Nicotine dependence, cigarettes, uncomplicated Category: Medical Plan: - SDM visit completed today in office. - Patient meets criteria for LDCT for lung cancer screening purposes and is asymptomatic. - Smoking cessation counseling offered. Patients can always call [phone]. - Will arrange for a LDCT scan of the chest for screening purposes at [facility]. - Risks, benefits, and alternatives were discussed in detail and the patient agrees to proceed. - Risks discussed include but are not limited to: radiation exposure, anxiety during testing and while awaiting results, false negatives, false positives and possibility of additional intervention such as further imaging or surgical procedures for benign disease. - Benefits are obviously detection of lung cancer at an early stage which can lead to improved outcomes. - Discussed the importance of screening program compliance with adherence to yearly LDCT scan as scheduled - or sooner interval scans for personalized screening regimen. - Discussed follow up plan. Our office will send a letter discussing results and if needed set up phone call and office visit based on CT findings. - Patient educated on results categorization and the management decisions for suspicious findings potentially found on the screening LDCT scan. Any patient with a Lung RADS score of 3 or 4 will be reviewed by a multidisciplinary team at [facility] to form a plan of action in regards to scan findings. - If further work up is warranted for a suspicious lung finding this will be followed by the Lung Cancer Screening program in conjunction with the Thoracic Surgery Department at [facility]. - A copy of the office note and LDCT will be sent to the patient's PCP - as well as documentation on any associated further plans of care. - Incidental findings on LDCT are the PCP's responsibility. These findings are indicated with an S finding on the LDCT Assessment. A note discussing the findings will be sent to the PCP who is then responsible for further management. - All questions answered.? Coding Level of Care Code Lung Cancer Screening G0296 Diagnoses Nicotine dependence, cigarettes, uncomplicated F17.210
== END 2023-07-10 13:20 | disposition home or self-care (01) ==
LOC: HO.HMS 10:38
PROVIDERS: PCP Internal Medicine; Referring Provider Internal Medicine; Visit Provider Physician Assistant Medical
DX: F17.210 Nicotine dependence, cigarettes, uncomplicated (principal)
CPT/HCPCS: G0296

== ENCOUNTER → 2023-07-10 10:38 | Outpatient (BNVA) | payer MEDICARE, MEDICAID, SELFPAY | PROVIDERS: PCP Internal Medicine; Visit Provider Physician Assistant Medical | DX: F17.210 Nicotine dependence, cigarettes, uncomplicated (principal) | CPT/HCPCS: G0296 ==

== ENCOUNTER 2023-07-11 09:50 | Outpatient (REF) | payer MEDICARE, MEDICAID, SELFPAY ==
--- NOTE | ~2023-07-11 | CT_ITS ---
EXAMINATION: CT LOW-DOSE SCREENING CHEST WITHOUT CONTRAST CLINICAL INFORMATION: Nicotine dependence, cigarettes, uncomplicated. The patient is a current smoker with a 44 pack-year history of smoking. COMPARISON: X-ray chest 04/08/2022. CT chest 09/21/2018. TECHNIQUE: Multidetector volumetric CT imaging of the chest is performed on a Siemens SOMATOM Definition scanner without contrast using low dose technique. Additional 2-D coronal and sagittal reformatted images and axial 3-D maximum intensity projection (MIP) images are generated on the CT workstation. This CT examination was performed using dose optimization techniques as appropriate, variously including the following: *Automated exposure control. *Adjustment of mA and/or kV according to patient size (this includes techniques or standardized protocols for targeted exams where dose is matched to indication/reason for exam; i.e. extremities or head). *Use of iterative reconstruction technique. TOTAL EXAM DLP: 59 mGy-cm CTDIvol: 1.69 mGy FINDINGS: PULMONARY NODULES: No suspicious pulmonary nodules. LUNGS: Lungs bilaterally symmetrically expanded. There are mild emphysematous changes present along with diffuse bronchial thickening. No effusion or pneumothorax. Central airways patent. MEDIASTINUM: ACDF hardware is noted. A single lead left chest wall pacer is present with its tip at the right ventricular apex. No mediastinal, hilar or axillary adenopathy or free fluid collection. CORONARY ARTERY CALCIFICATION: None visualized on this study. THYROID GLAND: Unremarkable to the extent seen. CARDIOVASCULAR STRUCTURES: Aortic and heart size normal. No pericardial effusion. CHEST WALL/AXILLA: Unremarkable. UPPER ABDOMEN: Included portions of the solid organs in the upper abdomen unremarkable on noncontrast imaging. Status post cholecystectomy. OSSEOUS STRUCTURES: No suspicious focal findings. CT/CT lung screening IMPRESSION: No findings seen suspicious for malignancy. ASSESSMENT: 1. Lung-RADS Category 1: Negative. There are no nodules or there are definitely benign nodules. N/A. 2. Lung-RADS Category S: Negative. There are no clinically significant or potentially clinically significant findings not related to the lungs requiring urgent additional evaluation. RECOMMENDATION: Continued routine annual low-dose CT lung screening in 1 year is recommended. An order for CT CHEST LOW DOSE CANCER SCREENING ([id number]) can be placed.
== END 2023-07-11 09:51 | disposition home or self-care (01) ==
LOC: HO.CT 09:50
PROVIDERS: PCP Internal Medicine; Visit Provider Physician Assistant Medical
DX: Z12.2 Encounter for screening for malignant neoplasm of respiratory organs (principal); F17.210 Nicotine dependence, cigarettes, uncomplicated
CPT/HCPCS: 71271

== ENCOUNTER → 2023-07-15 08:29 | Outpatient (REF) | payer MEDICARE, MEDICAID, SELFPAY ==
--- NOTE | ~2023-07-15 | NM_ITS ---
Lexiscan Myocardial perfusion study Indication: Cardiomyopathy, assess for coronary disease and ischemia Technique: The patient was brought in for a Lexiscan perfusion study on 07/15/2023 and was injected 0.4 mg of Lexiscan intravenously. Within a minute of this injection 35 mCi of sestamibi was given intravenously. Images were obtained using the SPECT gamma camera interlaced with the gating device. Images were obtained in supine position. Resting perfusion study was performed on 07/17/2023. Patient was administered 35 mCi of sestamibi intravenously at rest. Images were then obtained in supine position. Images were processed with the software and compared side to side in short axis, horizontal long axis and vertical long axis views. Total DLP 89mGy-cm. Findings: Raw acquisition reviewed. The stress perfusion study showed diminished tracer uptake at the apex, basal septum, basal inferolateral wall. No major change with CT attenuation correction. The gated study shows reduced LV systolic function with calculated LVEF of 34%. LV cavity is dilated in size. The gated study shows globally reduced wall thickening and contraction of segments. Resting study shows diminished tracer uptake at the apex, inferior wall. Inferior wall does have better perfusion with CT attenuation correction and hence could've components of diaphragmatic attenuation artifact. Gating at rest reveals globally reduced wall motion with ejection fraction at 40%. The findings are consistent with fixed perfusion defect in different areas but no clear reversible defects. NM/NM cardiolite stress test Impression: 1. Myocardial perfusion imaging study shows no clear evidence of any ischemia. Fixed perfusion defects at the apex, septum, inferior wall suggesting scar or cardiomyopathy process. 2. Gated LVEF is 34% during stress and 40% during rest. 3. Transient ischemic dilatation not present. EKG component of the test reported separately.
--- NOTE | 2023-07-15 08:33 | CA_ITS ---
Acquisition Time: 2023-07-15 08:42:33 Total Exercise Time: 00:02:00 Test Indications: Dyspnea Dizziness Medications: see H Protocol: LEXISCAN Max HR: 127 BPM 76% of Pred: 166 BPM Max BP: 112/064 mmHG Max Work Load: 1.0 METS Pharmacological stress test with Lexiscan injection while sitting and kicking his legs, without anginal symptoms, with isolated PVCs, with normotensive response to injection, with nondiagnositic EKGs.Aminophylline 75mg IVP given to reverse Lexiscan, Nuclear images pending. Test reviewed with Dr. Ramos Referred By: Dian Arias Overread By: Paula Russo
== END ==
LOC: HO.CARD 08:29
PROVIDERS: PCP Internal Medicine; Visit Provider Nurse Practitioner Family
DX: I25.10 Atherosclerotic heart disease of native coronary artery without angina pectoris (principal); I42.9 Cardiomyopathy, unspecified; Z95.810 Presence of automatic (implantable) cardiac defibrillator
CPT/HCPCS: 78452; 93017; A9500; J0280; J2785

== ENCOUNTER → 2023-07-15 08:33 | Outpatient (BNV) | payer MEDICARE, MEDICAID, SELFPAY | PROVIDERS: PCP Internal Medicine; Visit Provider Nurse Practitioner | DX: I42.9 Cardiomyopathy, unspecified (principal) | CPT/HCPCS: 78452; 93016; 93018 ==

== ENCOUNTER → 2023-07-17 10:54 | Outpatient (REF) | payer MEDICARE, MEDICAID, SELFPAY | LOC: HO.SL 10:54 | PROVIDERS: PCP Internal Medicine; Visit Provider Nurse Practitioner Family | DX: G47.33 Obstructive sleep apnea (adult) (pediatric) (principal); G47.10 Hypersomnia, unspecified | CPT/HCPCS: 95806 ==

== ENCOUNTER → 2023-07-17 11:03 | Outpatient (BNV) | payer MEDICARE, MEDICAID, SELFPAY | PROVIDERS: PCP Internal Medicine; Visit Provider Internal Medicine | DX: G47.33 Obstructive sleep apnea (adult) (pediatric) (principal) | CPT/HCPCS: 95806 ==

== ENCOUNTER 2023-07-17 13:57 | Outpatient (AMB) | payer MEDICARE, MEDICAID, SELFPAY ==
--- NOTE | 2023-07-17 13:58 | A.OFFPC_ITS ---
Vital Signs 07/17/23 13:59 Height 6 ft 2 in Weight 220 lb 0.8 oz BMI 28.2 BP 108/80 Blood Pressure Location Lt brachial Position Sitting Pulse 99 Pulse Source Pulse Oximeter Pulse Oximetry (%) 96 Oxygen Delivery Method Room Air Intake Visit Reasons: 1M Follow UP [employer] Required: No Allergies bupropion [From Wellbutrin] Allergy (Intermediate, Verified 07/17/23 13:59) Hives, Rage varenicline [From Chantix] Allergy (Intermediate, Verified 07/17/23 13:59) Agitation, Aggression codeine [Codeine] Allergy (Mild, Verified 07/17/23 13:59) HIVES/ITCHING methadone [Methadone] Allergy (Mild, Verified 07/17/23 13:59) HIVES/ITCHING barium sulfate Allergy (Unknown, Verified 07/17/23 13:59) Unknown Black Pepper-Turmeric Allergy (Unknown, Uncoded 07/17/23 13:59) Unknown Medication List - Last Reconciled 07/17/23 by Sabina Colindres MD albuterol sulfate 90 mcg/actuation (Ventolin HFA) 2 puffs inhalation Q4-6H PRN aspirin (Adult Low Dose Aspirin) 81 mg PO DAILY atorvastatin 80 mg PO DAILY carvedilol 3.125 mg PO BID cholecalciferol (vitamin D3) 50 mcg PO DAILY duloxetine 30 mg PO DAILY nitroglycerin 0.4 mg sublingual Q5M PRN spironolactone 25 mg PO DAILY tamsulosin (Flomax) 0.4 mg PO BEDTIME tramadol 50 mg PO TID PRN 30 days Tobacco use date assessed: 07/17/23 Dental Screening Dental Screen Date: 07/17/23 HPI 1M Follow UP HPI Details 52-year-old overweight male with multipl e medical problems atherosclerotic cardiovascular disease hypertension hypercholesterolemia COPD has failed back syndrome lumbar and has been seen last in June 2023. Patient has been placed on tramadol for the back pain and has been sent to pain management. Patient is asking for narcotic medication but has been advised that would not start him on that. Pain management notes reviewed and has recommended tramadol. Patient also is in the lung cancer screening program and has had a CT scan done results are pending. As for the coronary artery disease has seen Cardiology and nuclear stress test has been done and the results are pending. [facility] Medical History (Updated 07/17/23 @ 14:30 by Sabina Colindres MD) Hyperlipidemia History of TIA (transient ischemic attack) (~2013) History of cardiac arrest (~2019) Cardiac defibrillator in place Nonischemic cardiomyopathy Atherosclerotic cardiovascular disease Hypertension Hypercholesterolemia Restrictive lung disease COPD (chronic obstructive pulmonary disease) Cigarette nicotine dependence Nicotine dependence, cigarettes, uncomplicated Uncomplicated opioid dependence Chronic pain syndrome Rotator cuff arthropathy of both shoulders MRSA infection Surgical History (Updated 07/10/23 @ 10:39 by Malika Dewitt PA-C) History of implantable cardiac defibrillator (ICD) History of cardiac cath S/P insertion of spinal cord stimulator History of back surgery History of fusion of cervical spine History of repair of left rotator cuff History of repair of right rotator cuff History of cholecystectomy History of colonoscopy Family History (Updated 06/17/23 @ 15:13 by Caryn Moya [facility]) Mother Multiple sclerosis Father Diabetes Amputat leg, bilat-complicated Sister Lupus Social History (Updated 07/10/23 @ 10:38 by Malika Dewitt PA-C) Alcohol intake: never Patient Tobacco Use Status: Current everyday Tobacco user Tobacco use type: Cigarette Cigarettes Per Day: 2 Years Smoked: (onset 9yo, 1/2-3ppd x 42yrs, now <1/4ppd - 30+PYH) e-Cigarette/Vaping Use: Currently Using service: No Cognitive needs: No Hearing needs: No Vision needs: No Questionnaire Thrive Questionnaire Date Thrive assessed: 07/17/23 I am a: Patient What is your living situation today?: I have a steady place to live Within the past 12 months, did the food you bought not last and you didn't have the money to get more?: Never true Within the past 12 months, did you worry whether your food would run out before you got money to buy more?: Never true Do you have trouble paying for medicines?: No Do you have trouble getting transportation to medical appointments?: No Do you have trouble paying your heating and electricity bill?: No Do you have trouble taking care of your child, family member or friend?: No Do you have trouble with day-to-day activities such as bathing, preparing meals, shopping, managing finances, etc.?: No Are you currently unemployed and looking for a job?: No Are you interested in more education?: No Please select the resources that you would like help with: None Currently or been in a relationship where the following occur: no concerns reported THRIVE Score: 0 AUDIT C Alcohol Use Questionnaire (AUDIT-C) 1. How often do you have a drink containing alcohol?: Never 3. How often do you have six or more drinks on one occasion?: Never Total Score: 0 Score Reviewed/Action Taken: No COLETTE-7 AMB Questionnaire COLETTE-7 Date COLETTE - 7 assessed: 06/17/23 Source: Developed by Drs. King Macias, Melissa Aguilar, Mohan Lovett and colleagues, with an educational cosmo from [employer] Physical exam (Primary Care) Vital Signs: Last Vital Signs Pulse 99 07/17/23 13:59 BP 108/80 07/17/23 13:59 Pulse Ox 96 07/17/23 13:59 Oxygen Delivery Method Room Air 07/17/23 13:59 BMI result Body Mass Index 28.2 Tobacco/Smoking Status: Tobacco use Status Tobacco use date assessed 07/17/23 07/17/23 13:59 Patient Tobacco Use Status Current everyday Tobacco 07/17/23 13:59 Tobacco use type Cigarette 07/17/23 13:59 e-Cigarette/Vaping Use Currently Using 07/17/23 13:59 Thrive Assessment: Date of Thrive Assessment Date Thrive assessed 07/17/23 07/17/23 13:59 Currently or been in a relationship where the following occur: no concerns reported Const General: alert; No acute distress Eyes Conjunctivae: conjunctivae normal Resp Auscultation: clear to auscultation bilaterally Cardio Rate: regular rate Rhythm: regular rhythm GI Inspection: Yes normal to inspection Extrem General: Yes normal to inspection and No edema Assessment and Plan Assessment & Plan (1) Atherosclerotic cardiovascular disease: Code(s): I25.10 - Atherosclerotic heart disease of platinum coronary artery without angina pectoris Plan: Control the cholesterol, weight, blood pressure, patient has seen Cardiology and workup pending results had nuclear stress test continue with aspirin 81 mg once a day nuclear stress test results pending (2) Hypertension: Code(s): I10 - Essential (primary) hypertension Plan: Continue with blood pressure medication. Decrease salt intake and exercise on carvedilol 3.125 mg twice a day spironolactone 25 mg once a day (3) Hypercholesterolemia: Code(s): E78.00 - Pure hypercholesterolemia, unspecified Plan: Avoid fried foods, chicken skin, eggs, butter margarine, pastries and meat. Be it pork or beef they have a lot of cholesterol LDL goal of less than 70 preferably less than 55 on atorvastatin 80 mg once a day (4) COPD (chronic obstructive pulmonary disease): Comment: COPD secondary to ongoing smoking. However as per PFT, it is mild and his problem is mostly restrictive lung disease. Code(s): J44.9 - Chronic obstructive pulmonary disease, unspecified Plan: Continue with inhaler albuterol (5) Nicotine dependence, cigarettes, uncomplicated: Comment: (current smoker - onset 9yo, 1/2-3ppd x 42yrs, now <1/4ppd - 30+PYH) Code(s): F17.210 - Nicotine dependence, cigarettes, uncomplicated Plan: Patient has been entered in the lung cancer screening program and had a CT scan done results pending (6) Failed back syndrome, lumbar: Code(s): M96.1 - Postlaminectomy syndrome, not elsewhere classified Plan: Patient has been placed on tramadol. Discussed with the patient the notes from pain management will increase tramadol. (7) Generalized anxiety disorder: Code(s): F41.1 - Generalized anxiety disorder Plan: Discussed with the patient the start of duloxetine to help with anxiety as well as pain management Medications: New duloxetine 30 mg PO DAILY 30 caps 2RF F41.1 - Generalized anxiety disorder Changed From tramadol 50 mg PO DAILY 30 days PRN 30 tabs 0RF pain M17.9 - Osteoarthritis of knee, unspecified, M96.1 - Postlaminectomy syndrome, not elsewhere classified To tramadol 50 mg PO TID PRN 90 tabs 0RF pain 30 days M17.9 - Osteoarthritis of knee, unspecified, M96.1 - Postlaminectomy syndrome, not elsewhere classified Coding Level of Care Code Est Pt Level 4 (73631) Diagnoses Atherosclerotic cardiovascular disease I25.10 Hypertension I10 Hypercholesterolemia E78.00 COPD (chronic obstructive pulmonary disease) J44.9 Nicotine dependence, cigarettes, uncomplicated F17.210 Failed back syndrome, lumbar M96.1 Generalized anxiety disorder F41.1
[2023-07-17 13:59] VITALS: BP 108/80; PULSE 99; O2SAT 96; BMI 28.2
== END 2023-07-17 14:41 | disposition home or self-care (01) ==
PROVIDERS: PCP Internal Medicine; Visit Provider Internal Medicine
DX: I25.10 Atherosclerotic heart disease of native coronary artery without angina pectoris (principal); I10 Essential (primary) hypertension; E78.00 Pure hypercholesterolemia, unspecified; J44.9 Chronic obstructive pulmonary disease, unspecified; F17.210 Nicotine dependence, cigarettes, uncomplicated; M96.1 Postlaminectomy syndrome, not elsewhere classified; F41.1 Generalized anxiety disorder
CPT/HCPCS: 99214

== ENCOUNTER 2023-07-21 15:11 | Outpatient (AMB) | payer MEDICARE, MEDICAID, SELFPAY ==
--- NOTE | 2023-07-21 15:26 | MHC.OFFVIS ---
Vital Signs 07/21/23 15:30 Height 6 ft 2 in Weight 216 lb 7.903 oz BMI 27.8 BP 104/62 Blood Pressure Location Lt brachial Pulse 72 Pulse Source Pulse Oximeter Intake Visit Reasons: f/up w/ [place] [facility] Ssis Etl Developer Required: No Integrative Medicine Physician: Integrative Medicine Physician Present Allergies bupropion [From Wellbutrin] Allergy (Intermediate, Verified 07/21/23 15:26) Hives, Rage varenicline [From Chantix] Allergy (Intermediate, Verified 07/21/23 15:26) Agitation, Aggression codeine [Codeine] Allergy (Mild, Verified 07/21/23 15:26) HIVES/ITCHING methadone [Methadone] Allergy (Mild, Verified 07/21/23 15:26) HIVES/ITCHING barium sulfate Allergy (Unknown, Verified 07/21/23 15:26) Unknown Black Pepper-Turmeric Allergy (Unknown, Uncoded 07/21/23 15:26) Unknown Medication List - Last Reconciled 07/21/23 by YAAKOV NelsonC albuterol sulfate 90 mcg/actuation (Ventolin HFA) 2 puffs inhalation Q4-6H PRN aspirin (Adult Low Dose Aspirin) 81 mg PO DAILY atorvastatin 80 mg PO DAILY carvedilol 3.125 mg PO BID cholecalciferol (vitamin D3) 50 mcg PO DAILY duloxetine 30 mg PO DAILY nitroglycerin 0.4 mg sublingual Q5M PRN spironolactone 25 mg PO DAILY tamsulosin (Flomax) 0.4 mg PO BEDTIME tramadol 50 mg PO TID PRN 30 days HPI HPI f/up w/ [place] [facility]: Details: Daniel is a 52-year-old male with past medical history of hypertension, hyperlipidemia, nonischemic cardiomyopathy, cardiac arrest 2020, STEMI, cardiac catheterization showing no culprit, status post ICD who presents for follow-up after recent nuclear stress test. Today he reports that he still has dizziness with quick position changes and when he initially lays down in bed. He tried holding his lisinopril, then aldactone without any diifference in this symptom. It is bothersome for him. He has not had presyncope, syncope, falls. He usually has no chest discomfort at rest or with activity. He desciribes at least one episode of discomfort when having intimate relations with his partner. He does have some shortness of breath with exertional activities which is not new. He admits to being mostly sedentary. He has chronic back pain which limits his physical activity. No palpitations, PND, orthopnea or edema. He does have daytime sleepiness and needs to take naps. He did complete the home sleep study. He has not had any ICD shocks. Taking meds as directed. Daughter is present. [facility] Medical History Hyperlipidemia History of TIA (transient ischemic attack) (~2013) History of cardiac arrest (~2019) Cardiac defibrillator in place Nonischemic cardiomyopathy Atherosclerotic cardiovascular disease Hypertension Hypercholesterolemia Restrictive lung disease COPD (chronic obstructive pulmonary disease) Cigarette nicotine dependence Nicotine dependence, cigarettes, uncomplicated Uncomplicated opioid dependence Chronic pain syndrome Rotator cuff arthropathy of both shoulders MRSA infection Surgical History (Updated 07/22/23 @ 11:21 by Dian Arias, JOANNE-C) History of implantable cardiac defibrillator (ICD) History of cardiac cath S/P insertion of spinal cord stimulator History of back surgery History of fusion of cervical spine History of repair of left rotator cuff History of repair of right rotator cuff History of cholecystectomy History of colonoscopy Family History Mother Multiple sclerosis Father Diabetes Amputat leg, bilat-complicated Sister Lupus Social History Alcohol intake: never Patient Tobacco Use Status: Current everyday Tobacco user Tobacco use type: Cigarette Cigarettes Per Day: 2 Years Smoked: (onset 9yo, 1/2-3ppd x 42yrs, now <1/4ppd - 30+PYH) e-Cigarette/Vaping Use: Currently Using service: No Cognitive needs: No Hearing needs: No Vision needs: No Review of Systems Const All systems reviewed & are unremarkable except as noted in HPI and below ENT Reports dizziness Card Denies chest pain, Denies chest pain at rest, Denies chest pain with activity, Denies rapid heart rate, Denies pedal edema, Denies edema, Denies leg edema, Denies lightheadedness, Denies palpitations, Denies dyspnea, Denies dyspnea on exertion and Denies orthopnea Resp Denies cough, Denies dyspnea and Denies dyspnea on exertion GI Denies hematochezia and Denies change in stool character Musc Denies abnormal gait, Denies limited range of motion, Denies muscle cramps, Denies muscle weakness, Denies numbness, Denies radiating pain into limb, Denies stiffness and Denies tingling Neuro Denies abnormal gait, Reports dizziness, Denies numbness and Denies tingling Endo Denies palpitations Physical Exam Vital Signs: Last Vital Signs Pulse 72 07/21/23 15:30 BP 104/62 07/21/23 15:30 BMI result Body Mass Index 27.8 Const General: cooperative, healthy appearing, comfortable and no acute distress Orientation/consciousness: patient oriented x3 Neck Neck: Yes normal visual inspection and Yes no JVD Resp Effort & Inspection: normal respiratory effort Auscultation: clear to auscultation bilaterally, no crackles, no rales, no rhonchi and no wheezes Cardio Jugular venous distension: no JVD Rate: regular rate Rhythm: regular rhythm Heart sounds: S1 normal heart sound present, S2 normal heart sound present, no murmurs and no rubs Neuro General: patient oriented x3 Extrem General: Yes normal to inspection, No no pedal edema and No calf tenderness Psych Appearance: grossly normal Mental Status: mental status grossly normal Speech and movement: Normal speech and movement present Office Procedures Cardiac Device Check Cardiac Device Check Details: [employer] single lead ICD interrogation today shows battery 12 years, VVI mode, low rate 40, V pacing less than 1%, RV threshold 0.5 volts at 0.4 milliseconds, brief high V rates, possible NSVT, no therapies. [id number] Cardiac Device Check, single lead implantable defibrillator Procedure code (CPT) selection complete Assessment & Plan Assessment & Plan (1) Atherosclerotic cardiovascular disease: Code(s): I25.10 - Atherosclerotic heart disease of rincon coronary artery without angina pectoris Category: Medical Plan: History of STEMI 2019 with cardiac arrest, VF/VT. He did undergo cardiac catheterization at that time with no culprit lesion, nonobstructive disease. Echocardiogram has shown reduced EF. He did have history of nonischemic cardiomyopathy prior to his cardiac arrest as well. An echocardiogram was done 03/28/2022 showing EF 35-40%. Repeat echo done 05/30/2023 shows EF 20-25%, global hypokinesis, [id number] decrease in the RV systolic function. He has been on carvedilol and lisinopril for neurohormonal modulation. Due to the concern for drop in EF he did have a nuclear stress test done on 07/17/23 showing no ischemia and fixed perfusion defects of the apex, septum and inferior wall suggesting scar/cardiomyopathy process. Test results reviewed with Dr. 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 Overall EF seems unchanged. Will continue on neurohormonal modulation. He has tried holding his lisinopril and Aldactone at different times to see if it helps his lightheadedness which it does not. He would like to try stopping carvedilol. Will try changing carvedilol over to metoprolol which will have less blood pressure lowering ability. If symptom is unchanged with metoprolol then will have him continue on low-dose carvedilol. His blood pressure is on the low side however not hypotensive. He does have reports of hypersomnia and witnessed apnea. Home sleep study was done however result is not available at this time. Plan to call him when result is available and refer to pulmonology if warranted. Cardiology follow-up 6 months, sooner if needed. (2) History of cardiac arrest: Onset Date: ~2019 Comment: (cardiac arrest - VF/VT 2019 - s/p ICD) Code(s): Z86.74 - Personal history of sudden cardiac arrest Category: Medical Plan: As above (3) Cardiac defibrillator in place: Comment: (s/p cardiac arrest 2019) Code(s): Z95.810 - Presence of automatic (implantable) cardiac defibrillator Category: Medical Plan: [employer] ICD in place. Office interrogation today shows device is functioning normally. He V paces less than 1%. Remote monitoring in use. Next office interrogation due in 6 months (4) Hypersomnia: Code(s): G47.10 - Hypersomnia, unspecified Category: Medical Plan: Sleep study results pending (5) Cardiomyopathy: Code(s): I42.9 - Cardiomyopathy, unspecified Category: Medical Plan: Known history of cardiomyopathy with last echo 20-25%. On exam he has no signs of fluid overload. (6) History of cardiac cath: Comment: (2021- normal left main; LAD 40-50% ostial stenosis; RCA 30-40% stenosis in the proximal part of PLV) Code(s): Z98.890 - Other specified postprocedural states Category: Surgical Plan: No clear anginal sounding symptoms. Continue aspirin indefinitely. Continue high-dose atorvastatin and beta-mckayla. Signs and symptoms of angina reviewed with him. Plan Time spent on chart review, documentation, interview and assessment Medications: New metoprolol succinate ER Two week Trial of metoprolol XL 25 mg daily. Patient will be holding carvedilol during this time. 25 mg PO DAILY 20 tabs 0RF Coding Level of Care Code Est Pt Level 4 (66006) Diagnoses Atherosclerotic cardiovascular disease I25.10 History of cardiac arrest Z86.[address] Z95.810 Hypersomnia G47.10 Cardiomyopathy I42.9 History of cardiac cath Z98.890 CPT Codes Cardiac Device Check - Cardiac Device 4: [id number] Cardiac Device Check, single lead implantable defibrillator ([id number]) Time Spent (min) 36
[2023-07-21 15:30] VITALS: BP 104/62; PULSE 72; BMI 27.8
== END 2023-07-21 17:11 | disposition home or self-care (01) ==
PROVIDERS: PCP Internal Medicine; Visit Provider Nurse Practitioner Family
DX: I25.10 Atherosclerotic heart disease of native coronary artery without angina pectoris (principal); Z95.810 Presence of automatic (implantable) cardiac defibrillator
CPT/HCPCS: 93282; 99214

== ENCOUNTER → 2023-07-21 15:11 | Outpatient (BNVA) | payer MEDICARE, MEDICAID, SELFPAY | PROVIDERS: PCP Internal Medicine; Visit Provider Nurse Practitioner Family | DX: Z45.02 Encounter for adjustment and management of automatic implantable cardiac defibrillator (principal); I25.10 Atherosclerotic heart disease of native coronary artery without angina pectoris; I42.9 Cardiomyopathy, unspecified; G47.10 Hypersomnia, unspecified; Z98.890 Other specified postprocedural states; Z86.74 Personal history of sudden cardiac arrest | CPT/HCPCS: 99212 ==

== ENCOUNTER 2023-07-25 08:43 | Inpatient (IN) | payer MEDICARE, MEDICAID, SELFPAY ==
[2023-07-25] VITALS (10 sets, daily range): BP systolic 98–117; BP diastolic 56–76; PULSE 56–76; RESP 12–18; TEMP 36.1–36.9; O2SAT 92–98; BMI 27.4
--- NOTE | ~2023-07-25 | CT_ITS ---
EXAMINATION: CT head for stroke CLINICAL INFORMATION: left sided numbness, face/arm/leg, trouble swallowing COMPARISON: CT head 04/10/2022 TECHNIQUE: Contiguous axial imaging was performed from the skull base to vertex without intravenous contrast. This CT examination was performed using dose optimization techniques as appropriate, variously including the following: * Automated exposure control * Adjustment of mA and/or kV according to patient size (this includes techniques or standardized protocols for targeted exams where dose is matched to indication/reason for exam; i.e. extremities or head) * Use of iterative reconstruction technique DLP: 844 mGy-cm. FINDINGS: There is no evidence of acute intracranial hemorrhage or territorial infarction. Kim to white matter differentiation is well preserved. No abnormal mass effect or midline shift is seen. No extra-axial fluid collections are identified. No hydrocephalus. No significant volume loss. There is no abnormal attenuation within the brain parenchyma. The cerebellar tonsils are well positioned. No acute osseous or soft tissue abnormality. Visualized portions of the orbits are unremarkable. Partially aerated fluid level and mucoperiosteal thickening in the right maxillary sinus, improved from prior. The remaining fissures paranasal sinuses and mastoid air cells are well-aerated. CT/CT head for stroke IMPRESSION: No acute intracranial hemorrhage or edematous territorial infarction. These results were discussed with Michael Dos Santos MD by telephone on 07/25/2023 at 9:17 AM and it was ascertained that the content of the report was understood at the time of direct communication.
--- NOTE | ~2023-07-25 | CT_ITS ---
EXAMINATION: CTA NECK WITH CONTRAST (STROKE) CTA BRAIN WITH CONTRAST (STROKE) CLINICAL INFORMATION: Suspect acute stroke. Assess for major vessel occlusion. Please call report. COMPARISON: None available. TECHNIQUE: CTA of the head and neck was performed in the axial plane from the mediastinum to the skull vertex using 70 mL Omnipaque 350 intravenous contrast. Additional reformatted multiplanar images including maximum intensity projection MIP images are generated on the CT workstation. This CT examination was performed using dose optimization techniques as appropriate, variously including the following: *Automated exposure control *Adjustment of mA and/or kV according to patient size (this includes techniques or standardized protocols for targeted exams where dose is matched to indication/reason for exam; i.e. extremities or head) *Use of iterative reconstruction technique DLP: 1595 mGy-cm FINDINGS: The degree of stenosis determined by criteria similar to NASCET. CTA NECK: Three-vessel aortic arch. The innominate and bilateral subclavian arteries are patent. The origins and cervical segments of the common carotid arteries are patent bilaterally. The common carotid artery bifurcations demonstrate mural calcifications extending into the proximal segments of the cervical internal carotid arteries bilaterally without significant stenosis. The remaining segments of the cervical internal carotid arteries are patent bilaterally. The origins and proximal segments of the cervical left vertebral artery are obscured by artifact. The remaining segments of the left cervical vertebral artery are patent. The origins and cervical segments of the right vertebral arteries are patent. No definite evidence of hemodynamically significant stenosis, dissection, or aneurysm. The visualized branches of the external carotid arteries are unremarkable. CTA HEAD: Mild atherosclerotic calcifications of the bilateral carotid siphons. Anterior circulation: The petrous, cavernous, and supraclinoid segments are patent bilaterally. The major branches of the anterior and middle cerebral arteries as well as the anterior communicating artery complex are patent. No large vessel occlusion, saccular aneurysm, or dissection. Posterior circulation: The intracranial vertebral arteries are patent bilaterally. The basilar artery is normal in course and caliber. The superior cerebellar arteries arise normally from the basilar summit. Bilateral posterior cerebral arteries. No aneurysm. On delayed imaging, the venous structures demonstrate normal contrast opacification. No filling defect. No abnormal intraparenchymal enhancement. Soft tissues: No suspicious neck mass or cervical adenopathy. Lungs: Bilateral atelectasis. Bones: No acute osseous abnormality. No lytic or blastic osseous lesions. Multilevel degenerative changes of the visualized spine. Anterior spinal fusion spanning C4-C7. [place]clage wire posteriorly at C1-C2. CT/CT angio head neck stroke IMPRESSION: CTA head demonstrates no large vessel occlusion, saccular aneurysm, or dissection. CTA neck demonstrates no hemodynamically significant stenosis, dissection, or aneurysm. The above findings were communicated to Michael Dos Santos at 10:16am on 07/25/2023
--- NOTE | 2023-07-25 08:56 | ECG_ITS ---
Test Reason : stroke alert Blood Pressure : / mmHG Vent. Rate : 065 BPM Atrial Rate : 065 BPM P-R Int : 132 ms QRS Dur : 094 ms QT Int : 412 ms P-R-T Axes : 025 -43 019 degrees QTc Int : 428 ms Normal sinus rhythm Left axis deviation Septal infarct , age undetermined Abnormal ECG When compared with ECG of 21-SEP-2018 18:01, Septal infarct is now Present Referred By: Michael Dos Santos Electronically Signed By:Jcarlos Patterson
[2023-07-25 09:09] LABS: MANUAL DIFF FLAG NO
--- NOTE | 2023-07-25 09:09 | ED.NEUROSD ---
HPI - Neuro Symptoms/Deficit General Chief Complaint: Stroke Stated Complaint: stroke like symptoms Time Seen by Provider: 07/25/23 08:51 Source: patient Mode of arrival: EMS Limitations: no limitations History of Present Illness ED Provider: Dr. Michael Dos Santos HPI Narrative: 52-year-old male with a history of hypertension, hyperlipidemia, COPD, anxiety, nonischemic cardiomyopathy, cardiac arrest 4 years prior and was discharged with ICD his cardiomyopathy, TIA who presents emergency department for evaluation of left-sided numbness, weakness and difficulty swallowing. The patient states that his symptoms began at 06:50 hours. He states that the left side of his face, left arm and left leg feel numb. He states his left arm and left leg are weak as well. He states that he feels dizzy but this is a symptom he has had in the past. He does complain of a mild headache. Patient's daughter is a nurse that works here in the emergency department and she brought him here to the emergency department for evaluation of possible stroke. His daughter states that his providers have been changing his medications secondary to his dizziness and low blood pressures. Patient was on metoprolol and then on carvedilol. He is now back on metoprolol. He also takes spironolactone and lisinopril for his cardiomyopathy. Patient's review of systems was negative for fever, chills, chest pain, shortness of breath, nausea, vomiting, dark stools or bloody stools Related Data Home Medications ?Medication ?Instructions ?Recorded ?Confirmed aspirin 81 mg tablet,delayed 81 mg PO DAILY 02/12/22 07/21/23 release (Adult Low Dose Aspirin) nitroglycerin 0.4 mg sublingual 0.4 mg sublingual Q5M PRN Chest 03/18/22 07/21/23 tablet Pain tamsulosin 0.4 mg capsule (Flomax) 0.4 mg PO BEDTIME 07/21/23 07/21/23 Previous Rx's ?Medication ?Instructions ?Recorded cholecalciferol (vitamin D3) 50 50 mcg PO DAILY #90 tabs 07/03/22 mcg (2,000 unit) tablet spironolactone 25 mg tablet 25 mg PO DAILY #30 tabs 05/20/23 atorvastatin 80 mg tablet 80 mg PO DAILY #30 tabs 05/27/23 carvedilol 3.125 mg tablet 3.125 mg PO BID #180 tabs 07/01/23 albuterol sulfate 90 mcg/actuation 2 puff inhalation Q4-6H PRN 07/11/23 aerosol inhaler (Ventolin HFA) Wheezing #8.5 grams duloxetine 30 mg capsule,delayed 30 mg PO DAILY #30 caps 07/17/23 release tramadol 50 mg tablet 50 mg PO TID PRN pain 30 days #90 07/17/23 tabs metoprolol succinate 25 mg 25 mg PO DAILY #20 tabs 07/22/23 tablet,extended release 24 hr Allergies Allergy/AdvReac Type Severity Reaction Status Date / Time bupropion [From Wellbutrin] Allergy Intermediate Hives, Rage Verified 07/25/23 08:47 varenicline [From Chantix] Allergy Intermediate Agitation, Verified 07/25/23 08:47 Aggression codeine [Codeine] Allergy Mild HIVES/ITCHI Verified 07/25/23 08:47 NG methadone [Methadone] Allergy Mild HIVES/ITCHI Verified 07/25/23 08:47 NG barium sulfate Allergy Unknown Unknown Verified 07/25/23 08:47 Black Pepper-Turmeric Allergy Unknown Unknown Uncoded 07/25/23 08:47 Review of Systems Review of Systems: Yes all other systems are reviewed and are negative PMFSH Past Medical History Medical History (Updated 07/25/23 @ 15:34 by Michael Dos Santos MD) Hyperlipidemia History of TIA (transient ischemic attack) (~2013) History of cardiac arrest (~2019) Cardiac defibrillator in place Nonischemic cardiomyopathy Atherosclerotic cardiovascular disease Hypertension Hypercholesterolemia Restrictive lung disease COPD (chronic obstructive pulmonary disease) Cigarette nicotine dependence Nicotine dependence, cigarettes, uncomplicated Uncomplicated opioid dependence Chronic pain syndrome Rotator cuff arthropathy of both shoulders MRSA infection Surgical History History of implantable cardiac defibrillator (ICD) History of cardiac cath S/P insertion of spinal cord stimulator History of back surgery History of fusion of cervical spine History of repair of left rotator cuff History of repair of right rotator cuff History of cholecystectomy History of colonoscopy Family History Family History Mother Multiple sclerosis Father Diabetes Amputat leg, bilat-complicated Sister Lupus Social History Social History Alcohol intake: never Patient Tobacco Use Status: Current everyday Tobacco user Tobacco use type: Cigarette Cigarettes Per Day: 2 Years Smoked: (onset 9yo, 1/2-3ppd x 42yrs, now <1/4ppd - 30+PYH) Smoked in Last 30 Days: Yes e-Cigarette/Vaping Use: Currently Using Any prior treatment program specific to substance use: No Advance Directives: No Advance Directives Information Provided: Yes service: No Cognitive needs: No Hearing needs: No Vision needs: No Physical Exam Vital Signs: Vital Signs: Last Vital Signs Temp 97.9 F 07/25/23 11:36 Pulse 58 07/25/23 12:38 Resp 16 07/25/23 12:38 BP 104/57 L 07/25/23 12:38 Pulse Ox 94 07/25/23 12:38 O2 Del Method Room Air 07/25/23 12:38 BMI result Body Mass Index 27.4 Vital signs were normal. Exam: General: Awake, alert in no distress Head: Normocephalic, atraumatic EENT: PERRL, Lids normal, sclera normal, conjunctiva normal, nose normal , ears normal, throat without erythema or exudates Neck: Supple, no adenopathy Lung: breath sounds symmetric, no wheezing, rales or rhonchi Chest: symmetric movement, nontender Heart: regular rate and rhythm, normal S1, S2 no murmurs or rubs Abdomen: soft, non-tender, nondistended, normal bowel sounds Back: no vertebral tenderness, no CVAT Extremities: no deformities, moves all extremities symmetrically Neuro: General: Awake, alert, oriented to person, knew the month and his age, normal speech Cranial nerves: Patient has a slight left facial droop sparing the forehead Strength: Patient has a drift in his left upper extremity as well as weakness of the left upper extremity and left lower extremity compared to the right. Sensory: Diminished light touch to left side of the face, left arm and left leg Cerebellar: Patient has upper extremity ataxia as well as a tremor Psych: Pleasant, cooperative Medications Administered Discontinued Medications Generic Name Dose Route Start Last Admin Trade Name Freq PRN Reason Stop Dose Admin Iohexol 100 ml 07/25/23 10:08 07/25/23 10:09 Iohexol 350 Mg/Ml 100 Ml Infus..Btl IV 07/25/23 10:09 70 ml ONCE ONE Administration Nicotine 21 mg 07/25/23 14:37 07/25/23 14:58 Nicotine 21 Mg Patch.Td24 TRANSDERMA 07/25/23 14:38 21 mg ONCE ONE Administration Tenecteplase 24 mg 07/25/23 09:22 07/25/23 09:26 Tenecteplase 50 Mg/10 Ml Kit IVPUSH 07/25/23 09:23 24 mg ONCE ONE Administration Medical Decision Making Medical Decision Making MDM Narrative: 52-year-old male with a history of hypertension, hyperlipidemia, COPD, anxiety, nonischemic cardiomyopathy, cardiac arrest 4 years prior and was discharged with ICD for his cardiomyopathy, TIA who presents emergency department for evaluation of left-sided numbness, weakness and difficulty swallowing with last well-known time being 06:50 hours. He complained of dizziness which is a symptom he has had prior and may be secondary to his cardiomyopathy and low blood pressure and a mild headache. Vital signs revealed a blood pressure of 104/71 otherwise unremarkable. Physical examination did reveal a left facial droop, diminished light touch to his left face arm and leg, weakness of the left upper and left lower extremity compared to the right and ataxia of his upper extremities. Patient's NIH stroke scale was 6. Differential diagnosis: ?Includes but is not limited to TIA, stroke, cerebral artery blood clot, cerebral bleed, tumor/mass effect, hypoglycemia Following evaluation was ordered: CT head without contrast, CT angiogram head and neck, stroke laboratory evaluation Course: 09:[address] scan of the brain revealed no acute bleed or mass effect. I did discuss the patient's presentation with our neurologist, Dr. Clarke. Given his symptoms that are consistent with a stroke and is NIH stroke scale of 6.0 we both felt that the patient was a candidate for thrombolytics and I did discuss this with the patient and his daughter. Patient was given TNK [address] angiogram of the head and neck are pending. 10:16 CT angiogram of the head and neck revealed no acute findings was discussed with the radiology services. The patient was seen by our neurologist, Dr. Clarke. Given the fact that the patient has an ICD, he has not a candidate for MRI. Dr. Clarke requested that we get a Cardiology consult to evaluate the patient to determine if you may have had an embolic event secondary to his cardiomyopathy and to determine if he needs long-term anticoagulation. There was no intensive care unit bed available and Dr. Clarke recommended that we monitor the patient in the emergency department for 6 hours and after 6 hour. If you had no headache or evidence of intracranial bleed/worsening stroke then he can be admitted to the telemetry unit for further management. 15:26 Patient has been monitored in the emergency department for greater than 6 hours. During this monitoring. He has had no headache, he states that his symptoms seemed to have completely resolved. I did discuss admission over tiger text with the covering hospitalist, Dr. Loar. Admission/Observation Consideration of admission/observation: Escalation of care including admission/observation considered Consult Healthcare Provider Management of the patient was discussed with: Hospitalist (Dr. Torres) and Wheel And Pinion Inspector (Neurologist, Dr. Clarke) Lab Data 07/25/23 09:05 07/25/23 09:05 Labs: Lab Results 07/25/23 07/25/23 07/25/23 Range/Units 09:05 09:15 09:17 WBC 9.7 (4.8-10.8) X10*3/uL RBC 4.83 (4.60-5.80) X10*6/uL Hgb 15.4 (14.0-18.0) g/dl Hct 44.9 (42.0-52.0) % MCV 93.0 (80.0-98.0) fL MCH 31.9 (27.0-33.0) pg MCHC 34.3 (31.0-36.0) g/dl RDW 12.1 (11.0-16.0) % Plt Count 210 D (160-400) X10*3/uL MPV 9.7 (9.4-12.4) fL Immature Gran % (Auto) 0.3 (0.0-0.4) % Neut % (Auto) 60.9 (45-73) % Lymph % (Auto) 27.8 (20-40) % [place] % (Auto) 6.9 (2-11) % Eos % (Auto) 3.5 (0-4) % Baso % (Auto) 0.6 (0-2) % Lymph # (Auto) 2.7 (1.2-4.9) X10*3/uL [place] # (Auto) 0.7 (0.1-1.2) X10*3/uL Eos # (Auto) 0.3 (0.0-0.4) X10*3/uL Baso # (Auto) 0.1 (0.0-0.2) X10*3/uL Abs Immat Gran (auto) 0.03 (0.00-0.03) X10*3/uL Absolute Neuts (auto) 5.9 (2.0-8.3) x10*3/uL Absolute Nucleated RBC 0.000 (0.0-0.012) X10*3/uL Nucleated RBC % (auto) 0.0 (0.0-0.2) /100WBC PT 11.7 (11.1-13.3) SEC Whole Blood PT 13.0 (11.1-13.5) sec INR 1.0 (0.9-1.1) Whole Blood INR 1.1 (0.9-1.1) APTT 31.7 (26.0-36.8) SEC Sodium 138 (135-145) mmol/L Potassium 4.4 (3.3-5.1) mmol/L Chloride 105 (96-108) mmol/L Carbon Dioxide 28 (22-29) mmol/L Anion Gap 9 L (12-20) BUN 12 (9-16) mg/dL Creatinine 0.84 (0.5-1.4) mg/dL Estim Creat Clear Calc 116.8 Estimated GFR > 60 POC Glucose 111 (60-115) mg/dL Random Glucose 111 (60-115) mg/dL Calcium 9.7 (8.4-10.2) mg/dL Magnesium 2.0 (1.6-2.6) mg/dL Total Bilirubin 1.2 H (0.0-1.0) mg/dL Direct Bilirubin 0.3 (0.0-0.5) mg/dL AST 14 (5-37) U/L ALT 20 (0-40) U/L Alkaline Phosphatase 77 (39-117) U/L Total Creatine Kinase 75 (38-174) U/L Troponin I High Sens < 2.7 (<3.5-35.0) ng/L Total Protein 6.9 (6.5-8.0) g/dL Albumin 4.2 (3.5-5.0) g/dL Independent Interpretation I performed an independent interpretation of an: EKG Interpretation: My independent interpretation the patient's 12 EKG done at 09:15 hours is as follows: Normal sinus rhythm rate of 65, normal [place] interval, QRS duration and QTC interval, no ST segment elevation no ST segment depression, no PACs, no PVCs, no significant T-wave abnormalities patient does have Q-waves in V1 and V2. Compared to EKG dated 09/21/2028 the Q-waves in V1 and V2 are new. Radiology Impression Discussion of test interpretation with radiology: I have reviewed the radiologist's reading. Radiologist Impression: CT head for stroke IMPRESSION: No acute intracranial hemorrhage or edematous territorial infarction. These results were discussed with Michael Dos Santos MD by telephone on 07/25/2023 at 9:17 AM and it was ascertained that the content of the report was understood at the time of direct communication. Dictated By: Ayala Quinn CT angio head neck stroke IMPRESSION: CTA head demonstrates no large vessel occlusion, saccular aneurysm, or dissection. CTA neck demonstrates no hemodynamically significant stenosis, dissection, or aneurysm. The above findings were communicated to Michael Dos Santos at 10:16am on 07/25/2023 Dictated By: Fátima Slade MD NIH Stroke Scale Internal: Initial- Upon Arrival Level of Consciousness: Alert Level of Consciousness Questions: Answers both questions correctly Level of Consciousness Commands: Performs both tasks correctly Best Gaze: Normal Visual: No visual loss Facial Palsy: Minor paralyis Motor Arm (Right): No drift Motor Arm (Left): Drift Motor Leg (Right): No drift Motor Leg (Left): Drift Limb Ataxia: Present in two limbs Sensory: Mild to moderate sensory loss Best Language: No aphasia Dysarthia: Normal Extinction and Inattention: No abnormality Score: 6 Critical Care Time Critical Care Time Critical Care Time: Yes Total Critical Care Time: 35 Attestation: Critical Care: The patient was critically ill with a high probability of imminent or life threatening deterioration. I spent greater than 30 minutes of discontinuous time evaluating the patient,delivering critical care at the bedside, discussing and evaluating pertinent data with consultants. Critical care time does not include time spent performing separately billable procedures or teaching. Total time spent performing critical care was 35 minutes. Discharge Plan Discharge Clinical Impression: Stroke Patient Disposition: Admitted As Inpatient Prescriptions: No Action aspirin [Adult Low Dose Aspirin] 81 mg tablet,delayed release (DR/EC) 81 mg PO DAILY cholecalciferol (vitamin D3) 50 mcg (2,000 unit) tablet 50 mcg PO DAILY Qty: 90 3RF spironolactone 25 mg tablet 25 mg PO DAILY Qty: 30 11RF atorvastatin 80 mg tablet 80 mg PO DAILY Qty: 30 11RF carvedilol 3.125 mg tablet 3.125 mg PO BID Qty: 180 3RF albuterol sulfate [Ventolin HFA] 90 mcg/actuation HFA aerosol inhaler 2 puff inhalation Q4-6H PRN (Reason: Wheezing) Qty: 8.5 0RF tramadol 50 mg tablet 50 mg PO TID PRN (Reason: pain) 30 Days Qty: 90 0RF duloxetine 30 mg capsule,delayed release(DR/EC) 30 mg PO DAILY Qty: 30 2RF nitroglycerin 0.4 mg tablet, sublingual 0.4 mg sublingual Q5M PRN (Reason: Chest Pain) Rx Instructions: do not exceed 3 doses per episode tamsulosin [Flomax] 0.4 mg capsule 0.4 mg PO BEDTIME metoprolol succinate 25 mg tablet extended release 24 hr 25 mg PO DAILY Qty: 20 0RF Rx Instructions: Two week Trial of metoprolol XL 25 mg daily. Patient will be holding carvedilol during this time. Print Language: Telugu
[2023-07-25 09:10] LABS: Basophils Absolute Auto 0.1 X10*3/uL (0.0-0.2); Basophils Percent Auto 0.6 % (0-2); Eosinophils Absolute Auto 0.3 X10*3/uL (0.0-0.4); Eosinophils Percent Auto 3.5 % (0-4); Hematocrit 44.9 % (42.0-52.0); Hemoglobin 15.4 g/dl (14.0-18.0); Imm Gran Abs Auto 0.03 X10*3/uL (0.00-0.03); Imm Gran Pct Auto 0.3 % (0.0-0.4); Lymphocytes Absolute Auto 2.7 X10*3/uL (1.2-4.9); Lymphocytes Percent Auto 27.8 % (20-40); Mean Corpuscular HGB Conc 34.3 g/dl (31.0-36.0); Mean Corpuscular Hemoglobin 31.9 pg (27.0-33.0); Mean Platelet Volume 9.7 fL (9.4-12.4); Monocytes Absolute Auto 0.7 X10*3/uL (0.1-1.2); Monocytes Percent Auto 6.9 % (2-11); Neutrophils Absolute Auto 5.9 x10*3/uL (2.0-8.3); Neutrophils Percent Auto 60.9 % (45-73); Platelet Count 210 X10*3/uL (160-400); Red Blood Count 4.83 X10*6/uL (4.60-5.80); Red Cell Distribution Width 12.1 % (11.0-16.0); White Blood Count 9.7 X10*3/uL (4.8-10.8)
--- NOTE | 2023-07-25 09:11 | PC.NURSE ---
PT SENT TO MAIN CT SCANNER FOR IMAGING DUE TO ANOTHER STROKE PROTOCOL IN PROGRESS CURRENTLY IN THE ED. ACCOMPANIED BY VICENTE US, ON MONITOR. ANGIO TO BE PERFORMED UPON RETURN
[2023-07-25 09:16] LABS: Prothrombin Time 11.7 SEC (11.1-13.3)
[2023-07-25 09:18] LABS: Partial Thromboplastin Time 31.7 SEC (26.0-36.8)
[2023-07-25 09:20] LABS: ~PT, ~INR - Anti Coag Clinic 1.1 (0.9-1.1)
[2023-07-25 09:21] LABS: Glucose, Whole Blood 111 mg/dL (60-115)
[2023-07-25] MEDS: Tenecteplase 50 MG/10 ML KIT 24 MG IVPUSH (09:26)
[2023-07-25 09:30] LABS: Alanine Aminotransferase 20 U/L (0-40); Albumin Level 4.2 g/dL (3.5-5.0); Alkaline Phosphatase 77 U/L (39-117); Anion Gap 9 (12-20); Aspartate Amino Transferase 14 U/L (5-37); Bilirubin Direct 0.3 mg/dL (0.0-0.5); Bilirubin Total 1.2 mg/dL (0.0-1.0); Blood Urea Nitrogen 12 mg/dL (9-16); Calcium 9.7 mg/dL (8.4-10.2); Carbon Dioxide 28 mmol/L (22-29); Chloride 105 mmol/L (96-108); Creatinine Clr Calc Pharmacy 116.8; Estimated Glomerular Filt Rate > 60; Glucose Random 111 mg/dL (60-115); Potassium 4.4 mmol/L (3.3-5.1); Sodium 138 mmol/L (135-145); Total Protein 6.9 g/dL (6.5-8.0)
[2023-07-25 09:35] LABS: Troponin-I High Sensitivity < 2.7 ng/L (<3.5-35.0)
--- NOTE | 2023-07-25 09:55 | PC.NURSE ---
patient a&ox3, ivs inserted, labs drawn, pt brought to main CT scanner for CT, returned back to room and given TNK per request of provider, library monitor applied NSR on monitor, vitals stable, ekg performed, pocs obtained, pt then went to ED scanner for CTA, swallow eval failed as patient states he is having issues swallowing since the onset began- will divert swallow eval for now, upon returning to room stroke education performed- daughter who is an ED nurse here at [place] at bedside, call hawkins within reach, will continue to monitor
[2023-07-25] MEDS: iohexoL 350 MG/ML 100 ML INFUS..BTL IV (10:09)
[2023-07-25 10:45] LABS: Stroke Lab Use COMPLETE
--- NOTE | 2023-07-25 10:46 | PM.NEUROCN ---
History of Present Illness Data of Consult Service Date: 07/25/23 Primary Care Provider: Unknown Physician HPI Reason for consult: Stroke 52 years old man with cardiomyopathy and failed back syndrome with multiple cervical and lumbar spine surgeries in the back on disability because of that woke up today with left-sided numbness. He said that he was fine last night. There was no recent fall or trauma. Numbness was present in left side of the face arm trunk and leg and did not started 1 point or at least he did not remember it. He was also having a headache in the back of his head moderate in intensity. He would usually have a headache once every month or couple of months. There was no cold or flu-like illness. With tentative diagnosis of ischemic stroke, he was treated with TNK. He also has a defibrillator and because of that he could not get an MRI of brain. Review of Systems Review of Systems: No recent cold or flu-like illness seizure or trauma. [facility] Past Medical History Medical History (Updated 07/25/23 @ 10:51 by Arnol Clarke MD) Hyperlipidemia History of TIA (transient ischemic attack) (~2013) History of cardiac arrest (~2019) Cardiac defibrillator in place Nonischemic cardiomyopathy Atherosclerotic cardiovascular disease Hypertension Hypercholesterolemia Restrictive lung disease COPD (chronic obstructive pulmonary disease) Cigarette nicotine dependence Nicotine dependence, cigarettes, uncomplicated Uncomplicated opioid dependence Chronic pain syndrome Rotator cuff arthropathy of both shoulders MRSA infection Family History Family History Mother Multiple sclerosis Father Diabetes Amputat leg, bilat-complicated Sister Lupus Surgical History Surgical History History of implantable cardiac defibrillator (ICD) History of cardiac cath S/P insertion of spinal cord stimulator History of back surgery History of fusion of cervical spine History of repair of left rotator cuff History of repair of right rotator cuff History of cholecystectomy History of colonoscopy Social History Social History Alcohol intake: never Patient Tobacco Use Status: Current everyday Tobacco user Tobacco use type: Cigarette Cigarettes Per Day: 2 Years Smoked: (onset 9yo, 1/2-3ppd x 42yrs, now <1/4ppd - 30+PYH) Smoked in Last 30 Days: Yes e-Cigarette/Vaping Use: Currently Using Any prior treatment program specific to substance use: No Advance Directives: No Advance Directives Information Provided: Yes service: No Cognitive needs: No Hearing needs: No Vision needs: No Meds Allergies Allergy/AdvReac Type Severity Reaction Status Date / Time bupropion [From Wellbutrin] Allergy Intermediate Hives, Rage Verified 07/25/23 08:47 varenicline [From Chantix] Allergy Intermediate Agitation, Verified 07/25/23 08:47 Aggression codeine [Codeine] Allergy Mild HIVES/ITCHI Verified 07/25/23 08:47 NG methadone [Methadone] Allergy Mild HIVES/ITCHI Verified 07/25/23 08:47 NG barium sulfate Allergy Unknown Unknown Verified 07/25/23 08:47 Black Pepper-Turmeric Allergy Unknown Unknown Uncoded 07/25/23 08:47 Home Medications ?Medication ?Instructions ?Recorded ?Confirmed ?Last Taken ?Type aspirin 81 mg tablet,delayed 81 mg PO DAILY 02/12/22 07/21/23 07/03/22 History release (Adult Low Dose Aspirin) nitroglycerin 0.4 mg sublingual 0.4 mg sublingual Q5M PRN Chest 03/18/22 07/21/23 Unknown History tablet Pain tamsulosin 0.4 mg capsule (Flomax) 0.4 mg PO BEDTIME 07/21/23 07/21/23 Unknown History Physical Exam Vital Signs: Vital Signs: Last Vital Signs Temp 98.4 F 07/25/23 10:06 Pulse 64 07/25/23 10:06 Resp 13 07/25/23 10:06 BP 108/57 L 07/25/23 10:12 Pulse Ox 98 07/25/23 10:06 O2 Del Method Room Air 07/25/23 10:06 BMI result Body Mass Index 27.4 Neuro: Other: He is alert and awake with normal spontaneity of speech fluency comprehension and vague affect. Face is symmetrical. Visual de [place] are full. There is minimal left-sided pronator drift. [id number] testing is okay. There is no leg drift with both legs elevated up. Plantars are flexor. Deep tendon reflexes are trace to 1+. With double simultaneous stimulation he did not feel in left foot. Speech is normal. Results Labs 07/25/23 09:05 07/25/23 09:05 Labs: Short CBC 07/25/23 Range/Units 09:05 WBC 9.7 (4.8-10.8) X10*3/uL Hgb 15.4 (14.0-18.0) g/dl Hct 44.9 (42.0-52.0) % Plt Count 210 D (160-400) X10*3/uL BMP 07/25/23 09:05 Sodium 138 Potassium 4.4 Chloride 105 Carbon Dioxide 28 BUN 12 Creatinine 0.84 Calcium 9.7 Cardiac Enzymes 07/25/23 Range/Units 09:05 Total Creatine Kinase 75 (38-174) U/L Liver Function 07/25/23 Range/Units 09:05 Total Bilirubin 1.2 H (0.0-1.0) mg/dL Direct Bilirubin 0.3 (0.0-0.5) mg/dL AST 14 (5-37) U/L ALT 20 (0-40) U/L Alkaline Phosphatase 77 (39-117) U/L Albumin 4.2 (3.5-5.0) g/dL CTA of brain did not reveal any obvious acute abnormality. Hypodense area and mid myriam was noted. CTA did not reveal any vascular stenosis or occlusion. Assessment and Plan (1) Cerebral infarction: Qualifiers: Cerebral infarction mechanism: embolism Precerebral and cerebral artery: other cerebral artery Qualified Code(s): I63.49 - Cerebral infarction due to embolism of other cerebral artery Status: Acute 52 years old man with cardiomyopathy came to hospital with new onset of left sided numbness and weakness. With tentative diagnosis of acute ischemic infarction he was treated with TNK. Now he was feeling better. Because of defibrillator, he could not have an MRI. My recommendation at this time is to have PT OT consultation, and have a Cardiology consultation with recommendation of long-term anticoagulation for stroke prevention. Procedures Date of Service Date of Service: 07/25/23
--- NOTE | 2023-07-25 10:47 | PC.NURSE ---
swallow swallow eval performed with Dr. Dos Santos at bedside, pt stated his left face was much less numb and that he felt better swallowing saliva. Upon performing patient passed the swallow, provider cleared patient to have water and coffee- no PO food at this time.
--- NOTE | 2023-07-25 10:51 | PC.NURSE ---
provider was notified of patients BP being low, will continue to monitor. pt denies symptoms related to hypotention.
--- NOTE | 2023-07-25 12:39 | PC.NURSE ---
pt had requested for the lights to be shut off as he wished to sleep- denied headache prior to this request, pt currently sleeping, residential sales representative intact sinus reymundo 50s-60s on monitor, vitals currently stable, no signs of bleeding noted, call hawkins within reach, will continue to monitor.
[2023-07-25] MEDS: Nicotine 21 MG PATCH.TD24 TRANSDERMA (14:58)
--- NOTE | 2023-07-25 14:59 | PC.NURSE ---
nicotine patched placed per order
--- NOTE | 2023-07-25 15:55 | P.HPHOSP_ITS ---
History of Present Illness Date of Service: 07/25/23 Attending physician on admission: True Melara Chief Complaint: Left-sided weakness Pt is a 52-year-old male with a PMH significant for?nonischemic cardiomyopathy, CAD with AK 4 years prior s/p ICD in place, hx of TIA, HTN, HLD, multiple back and neck surgeries and anxiety who presents to the ED with?left-sided numbness and weakness since this morning. Patient reports he awoke in his normal state of health slightly before 06:50, but within a few minutes had sudden onset left- sided facial numbness and drooping, headache, difficulty swallowing, and numbness and weakness in upper and lower extremities. Reports he ?just felt weird?. Also complains of photophobia. No chest pain/pressure, palpitations. Shortness of breath at baseline. Patient immediately called EMS who brought him to the ED for further evaluation where he was given TNK with good results. Reports still experiencing slight tingling on the left side of his face, but overall feels ?normalish and essentially back to baseline. Denies significant left-sided numbness, tingling, or weakness. No headache, acute vision changes, or difficulty swallowing or speaking. Denies significant history of alcohol use, though notes still smokes a few cigarettes daily, and vapes ?like it's going out of style?. Patient originally going to go to ICU for 24 hour observation, however due to limited bed availability neurology was consulted and suggested patient could be observed for a 6 hour period of time in the ED and transferred to the medical floor if there was no evidence of acute intracranial bleed. In the ED pt was hypotensive as low as 98/56, vitals otherwise WNL. Labs were significant for mildly elevated bilirubin of 1.2, otherwise grossly unremarkable. No leukocytosis. Stable H&H. No significant electrolyte abnormalities. Renal and hepatic function baseline. Troponin negative. CT of head found no acute intracranial hemorrhage or edematous territorial infarction. CTA of head and neck negative for large vessel occlusion, saccular aneurysm, or dissection, as well as negative for hemodynamically significant stenosis, dissection or aneurysm. EKG demonstrated normal sinus rhythm without evidence of significant ST elevations or depressions. Pt was treated with TNK and nicotine replacement therapy. Pt will be admitted to the hospital for treatment and further evaluation of acute CVA. Review of Systems 2 Review of Systems: Left facial numbness and tingling, facial droop Left-sided numbness and weakness of upper and lower extremities Difficulty swallowing Headache Photophobia Denies dysarthria, difficulty word finding, confusion No chest pain/pressure, palpitations Denies shortness of breath No fever, chills, nausea, vomiting, abdominal pain PMFSH Medical History Hyperlipidemia History of TIA (transient ischemic attack) (~2013) History of cardiac arrest (~2019) Cardiac defibrillator in place Nonischemic cardiomyopathy Atherosclerotic cardiovascular disease Hypertension Hypercholesterolemia Restrictive lung disease COPD (chronic obstructive pulmonary disease) Cigarette nicotine dependence Nicotine dependence, cigarettes, uncomplicated Uncomplicated opioid dependence Chronic pain syndrome Rotator cuff arthropathy of both shoulders MRSA infection Family History Mother Multiple sclerosis Father Diabetes Amputat leg, bilat-complicated Sister Lupus Surgical History History of implantable cardiac defibrillator (ICD) History of cardiac cath S/P insertion of spinal cord stimulator History of back surgery History of fusion of cervical spine History of repair of left rotator cuff History of repair of right rotator cuff History of cholecystectomy History of colonoscopy Social History Alcohol intake: never Patient Tobacco Use Status: Current everyday Tobacco user Tobacco use type: Cigarette Cigarettes Per Day: 2 Years Smoked: (onset 9yo, 1/2-3ppd x 42yrs, now <1/4ppd - 30+PYH) e-Cigarette/Vaping Use: Currently Using service: No Cognitive needs: No Hearing needs: No Vision needs: No Meds Allergies Allergy/AdvReac Type Severity Reaction Status Date / Time bupropion [From Wellbutrin] Allergy Intermediate Hives, Rage Verified 07/25/23 08:47 varenicline [From Chantix] Allergy Intermediate Agitation, Verified 07/25/23 08:47 Aggression codeine [Codeine] Allergy Mild HIVES/ITCHI Verified 07/25/23 08:47 NG methadone [Methadone] Allergy Mild HIVES/ITCHI Verified 07/25/23 08:47 NG barium sulfate Allergy Unknown Unknown Verified 07/25/23 08:47 Black Pepper-Turmeric Allergy Unknown Unknown Uncoded 07/25/23 08:47 Home Medications ?Medication ?Instructions ?Recorded ?Confirmed ?Last Taken ?Type aspirin 81 mg tablet,delayed 81 mg PO DAILY 02/12/22 07/21/23 07/03/22 History release (Adult Low Dose Aspirin) nitroglycerin 0.4 mg sublingual 0.4 mg sublingual Q5M PRN Chest 03/18/22 07/21/23 Unknown History tablet Pain tamsulosin 0.4 mg capsule (Flomax) 0.4 mg PO BEDTIME 07/21/23 07/21/23 Unknown History Physical Exam 2 Vital Signs and Narrative: Vital Signs: Last Vital Signs Temp 97.9 F 07/25/23 11:36 Pulse 58 07/25/23 12:38 Resp 16 07/25/23 12:38 BP 104/57 L 07/25/23 12:38 Pulse Ox 94 07/25/23 12:38 O2 Del Method Room Air 07/25/23 12:38 BMI result Body Mass Index 27.4 Constitutional: Alert, in no acute distress. Mental Status: Oriented to person, place and time. Eyes: Pupils are equal, round, and reactive to light. Ear, Nose, and Throat: Oropharynx clear, mucous membranes moist. Ears and nose without deformities. Trachea midline. Respiratory: Clear to auscultation bilaterally. No wheezing, rales, or rhonchi. Cardiovascular: S1, S2 regular. No murmurs, rubs, or gallops. Gastrointestinal: Abdomen soft, non-tender, non-distended. Normal bowel sounds. Neurologic: Cranial nerves II-XII are grossly intact bilaterally. No focal neurological deficits. Face symmetrical. Moves all extremities spontaneously. Preserved strength of upper and lower extremities bilaterally. Preserved sensation to light touch of face and upper and lower extremities bilaterally. Skin: Warm, dry. Extremities: No edema. Psychiatric: Normal mood and affect. Results Labs 07/25/23 09:05 07/25/23 09:05 Labs: Laboratory Results - last 24 hr 07/25/23 07/25/23 07/25/23 09:05 09:15 09:17 MCV 93.0 MCH 31.9 MCHC 34.3 RDW 12.1 Plt Count 210 D MPV 9.7 Immature Gran % (Auto) 0.3 Neut % (Auto) 60.9 Lymph % (Auto) 27.8 [place] % (Auto) 6.9 Eos % (Auto) 3.5 Baso % (Auto) 0.6 Lymph # (Auto) 2.7 [place] # (Auto) 0.7 Eos # (Auto) 0.3 Baso # (Auto) 0.1 Abs Immat Gran (auto) 0.03 Absolute Neuts (auto) 5.9 Absolute Nucleated RBC 0.000 Nucleated RBC % (auto) 0.0 PT 11.7 Whole Blood PT 13.0 INR 1.0 Whole Blood INR 1.1 APTT 31.7 Anion Gap 9 L Estim Creat Clear Calc 116.8 Estimated GFR > 60 POC Glucose 111 Random Glucose 111 Calcium 9.7 Magnesium 2.0 Total Bilirubin 1.2 H Direct Bilirubin 0.3 AST 14 ALT 20 Alkaline Phosphatase 77 Total Creatine Kinase 75 Troponin I High Sens < 2.7 Total Protein 6.9 Albumin 4.2 Imaging Radiologist's Impressions: Impressions Head CT 07/25/23 09:09 IMPRESSION: No acute intracranial hemorrhage or edematous territorial infarction. These results were discussed with Michael Dos Santos MD by telephone on 07/25/2023 at 9:17 AM and it was ascertained that the content of the report was understood at the time of direct communication. Head/Neck CTA 07/25/23 09:54 IMPRESSION: CTA head demonstrates no large vessel occlusion, saccular aneurysm, or dissection. CTA neck demonstrates no hemodynamically significant stenosis, dissection, or aneurysm. The above findings were communicated to Michael Dos Santos at 10:16am on 07/25/2023 Assessment and Plan (1) Acute CVA (cerebrovascular accident): Status: Acute Plan Pt is a 52-year-old male with a PMH significant for?nonischemic cardiomyopathy, CAD with AK 4 years prior s/p ICD in place, hx of TIA, HTN, HLD, multiple back and neck surgeries and anxiety who presents to the ED with?left-sided numbness and weakness since this morning. Pt will be admitted to the hospital for treatment and further evaluation of acute CVA. Acute CVA Patient with left-sided facial droop, numbness, tingling, and weakness of upper and left lower left extremities bilaterally shortly after waking up this morning at 06:50 CTA of head and CTA of head/neck negative for intracranial or arterial pathologies Patient received TNK in the ED to good effect Patient now nearly back to baseline no focal deficits noted upon examination Patient can not get MRI due to ICD Will get echocardiogram with bubble study, per Neurology Continue aspirin, statin Lipid profile PT/OT evaluation Neurology consult Cardiology consult to evaluate if embolic stroke secondary to cardiomyopathy and if patient needs long-term anticoagulation Cardiac diet Monitor on telemetry HTN Continue carvedilol, metoprolol COPD Not in acute exacerbation Continue home inhalers Nicotine dependence Smoking cessation counseled Nicotine replacement therapy Chronic neck and back pain Continue tramadol Full Code Attending:?Dr. Melara DVT Prophylaxis: Lovenox Pt will require a hospitalization of at least two nights for treatment of?acute CVA with administration of TNK. Patient will require hospitalization for close monitoring of cardiac function, labs, and specialist consultation with Neurology, Cardiology, and PT evaluation. Quality Stroke Does the patient have a stroke diagnosis?: Yes Reason for No Anti-thrombotic by Day Two: N/A - Med Ordered VTE Prior VTE?: No VTE Risk Level:: Medical - moderate - high VTE Device Contraindication: Treatment Not Indicated VTE Drug Contraindication: N/A - Med Ordered
[2023-07-25 16:46] LABS: Appearance Urine Clear; Color Urine Yellow; Glucose Urine UA Negative (Negative); Leukocyte Esterase Urine Negative (Negative); Nitrite Urine Negative (Negative); Specific Gravity - Urine >= 1.030 (1.005-1.025); Urine Blood Negative (Negative); Urine Ketones Negative (Negative); Urine Protein Negative (Neg-Trace)
--- NOTE | 2023-07-25 17:59 | PC.NURSE ---
Assumed care of this patient at 1500, patient has been resting quietly on stretcher, alert and oriented neuros intact, asking for food, kitchen called for late meal tray.
--- NOTE | 2023-07-25 19:31 | PHA.MEDREC ---
Pharmacy Consult ? Medication Reconciliation Pharmacy has completed the medication reconciliation. Spoke to patient and confirmed medication list. Carvedilol is being replaced by metoprolol and he takes duloxetine at night.
[2023-07-25] MEDS: Tamsulosin HCL 0.4 MG CAPSULE PO (23:50)
[2023-07-25] MEDS: DULoxetine HCl 30 MG CAPSULE.DR PO (23:50)
[2023-07-25] MEDS: traMADoL HCL 50 MG TABLET PO (23:50)
[2023-07-26] VITALS (8 sets, daily range): BP systolic 99–131; BP diastolic 49–71; PULSE 68–103; RESP 16–20; TEMP 36.4–36.9; O2SAT 93–97
[2023-07-26] MEDS: 0.9 % Sodium Chloride Flush 3 ML SYRINGE IVFLUSH ×2 (01:14→08:45)
--- NOTE | 2023-07-26 01:47 | PC.NURSE ---
documentation delayed d/t system downtime. pt is resting comfortably in hospital bed, no concerns at this time. call ross w/in reach. neuros intact. home medications administered
--- NOTE | 2023-07-26 05:13 | PC.NURSE ---
pt resting comfortably in hospital bed. neuros intact, denies pain at this time. call ross w/in reach
--- NOTE | 2023-07-26 07:00 | CA_ITS ---
Transthoracic Echocardiogram Patient (Last, First, Middle): Daniel Agarwal A Gender: Male Date of : 1970 Age: 52 Procedure Date: 07/26/2023 Procedure Type: Transthoracic Echocardiogram Location: [facility] [place] Height: 187.96 cm Weight: 96.62 kg BSA: 2.23 m2 Heart Rate: bpm BP: 131 / 63 mmHg Apparel Sales Leader: TO Referring MD: Mary Patel MD Symptoms: CVA, r/o LV thrombus Study Quality: Fair/Contrast Conclusions: - The left ventricular systolic function is moderately decreased. - There is no evidence of a thrombus in the left ventricle. Findings Procedure Information Contrast agent, definity, is being given per protocol without apparent complications. Left Ventricle Mildly increased left ventricular cavity size. There is normal left ventricular wall thickness. The left ventricular systolic function is moderately decreased. The visually estimated ejection fraction is between 30 35%. There is no evidence of a thrombus in the left ventricle. Wall Motion Rest Echo Findings The apical anterior and mid anterior segments are hypokinetic. The apex segment is akinetic. Right Ventricle Normal right ventricular cavity size and systolic function. There is an ICD wire seen in the right ventricle. Prior Study Comparison Changes noted compared to prior study dated: 05/30/2023. EF 30-35%. Measurements 2D Linear Measurements IVSd: 1.02 0.6-0.9/0.6-1.0 cm LVIDd: 5.84 3.9-5.3/4.2-5.9 cm LVIDd Index: 2.62 2.4-3.2/2.2-3.1 cm/m2 LVIDs: 4.94 2.0-3.6 cm LVPWd: 0.89 0.7-1.1 cm LV Mass: 277.33 67-162/88-224 g LV Mass Index: 124.37 43-95/49-115 g/m2 LVOT Diam: 2.40 3.0+(-)1.3 cm 2D Systolic Function EF 4C: 25.60 >55% EF 2C: 37.40 >55% EF BiP: 32.60 >55% LVOT LVOT Pk Prabhakar: 1.38 LVOT Mn Prabhakar: 0.86 LVOT VTI: 0.24 LVOT Pk Grad: 8.00 LVOT Mn Grad: 4.00 LVOT Diam: 2.40 LVOT Area: 4.52 Updated in Other Vendor System with Status of Final Jcarlos Patterson MD electronically signed on 07/26/2023 3:45:15 PM with status of Final
[2023-07-26 07:02] LABS: Hematocrit 42.6 % (42.0-52.0); Hemoglobin 14.6 g/dl (14.0-18.0); Mean Corpuscular HGB Conc 34.3 g/dl (31.0-36.0); Mean Corpuscular Hemoglobin 31.8 pg (27.0-33.0); Mean Corpuscular Volume 92.8 fL (80.0-98.0); Mean Platelet Volume 10.4 fL (9.4-12.4); Platelet Count 182 X10*3/uL (160-400); Red Blood Count 4.59 X10*6/uL (4.60-5.80); White Blood Count 10.4 X10*3/uL (4.8-10.8)
[2023-07-26 07:17] LABS: Cholesterol 138 mg/dL (<200); HDL Cholesterol 33 mg/dL (>40); LDL Cholesterol Calculated 67 mg/dL (<100); Triglycerides 192 mg/dL (<150)
--- NOTE | 2023-07-26 08:39 | MHC.CM.PN ---
CM met with Patient at bedside and assisted him with the completion of a HCP; he named his Daughter/Estefani as his Agent. CM addressed IMM with Patient, providing him with the original and a copy has been placed on the chart. Patient lives in a house with his Daughter/Estefani, who works here as a RN. Home/self care is the goal and cM has initiated and will follow for dc planning, Patient required no services nor DME SENIOR PHYSICAL THERAPIST. PCP is Dr. Colindres.
[2023-07-26] MEDS: Atorvastatin Calcium 80 MG TABLET PO (08:43)
[2023-07-26] MEDS: Cholecalciferol (Vitamin D3) 25 MCG TABLET 50 MCG PO (08:43)
[2023-07-26] MEDS: Metoprolol Succinate ER 25 MG TAB.ER.24H PO (08:43)
[2023-07-26] MEDS: traMADoL HCL 50 MG TABLET PO ×2 (08:44→16:13)
[2023-07-26] MEDS: Nicotine 21 MG PATCH.TD24 TRANSDERMA (08:48)
[2023-07-26] MEDS: Enoxaparin Sodium 40 MG/0.4 ML SYRINGE SUBCUT (10:34)
--- NOTE | 2023-07-26 12:19 | PM.CNCAR ---
History of Present Illness History of Present Illness Date of Service: 07/26/23 Requesting physician: Mary Patel Chief complaint: Acute CVA Narrative: [age] gentleman with known history of cardiomyopathy and ICD placement presenting for left-sided numbness and weakness. He received thrombolytics with improvement in symptoms. He could not do MRI because of his ICD. No palpitations or AFib but he has been getting dizzy spells at home. He has had his medications were changed a few times due to his dizziness at home. His brain imaging has not shown any significant atherosclerotic disease and concern is that he had a more like CVA. Neurology has advised anticoagulation. [facility] Past Medical History Medical History Hyperlipidemia History of TIA (transient ischemic attack) (~2013) History of cardiac arrest (~2019) Cardiac defibrillator in place Nonischemic cardiomyopathy Atherosclerotic cardiovascular disease Hypertension Hypercholesterolemia Restrictive lung disease COPD (chronic obstructive pulmonary disease) Cigarette nicotine dependence Nicotine dependence, cigarettes, uncomplicated Uncomplicated opioid dependence Chronic pain syndrome Rotator cuff arthropathy of both shoulders MRSA infection Family History Family History Mother Multiple sclerosis Father Diabetes Amputat leg, bilat-complicated Sister Lupus Surgical History Surgical History History of implantable cardiac defibrillator (ICD) History of cardiac cath S/P insertion of spinal cord stimulator History of back surgery History of fusion of cervical spine History of repair of left rotator cuff History of repair of right rotator cuff History of cholecystectomy History of colonoscopy Social History Social History Household Members: Family Housing: House Do you presently have visiting nurse or other home services: No Alcohol intake: never Patient Tobacco Use Status: Current everyday Tobacco user Tobacco use type: Cigarette Cigarettes Per Day: 2 Years Smoked: (onset 9yo, 1/2-3ppd x 42yrs, now <1/4ppd - 30+PYH) e-Cigarette/Vaping Use: Currently Using service: No Cognitive needs: No Hearing needs: No Vision needs: No Meds Allergies Allergy/AdvReac Type Severity Reaction Status Date / Time bupropion [From Wellbutrin] Allergy Intermediate Hives, Rage Verified 07/25/23 08:47 varenicline [From Chantix] Allergy Intermediate Agitation, Verified 07/25/23 08:47 Aggression codeine [Codeine] Allergy Mild HIVES/ITCHI Verified 07/25/23 08:47 NG methadone [Methadone] Allergy Mild HIVES/ITCHI Verified 07/25/23 08:47 NG barium sulfate Allergy Unknown Unknown Verified 07/25/23 08:47 Black Pepper-Turmeric Allergy Unknown Unknown Uncoded 07/25/23 08:47 Active Medications: Current Medications Acetaminophen (Acetaminophen 325 Mg Tablet) 650 mg PO Q6H PRN PRN Reason: Pain, Mild (Pain Scale 1-3) Atorvastatin Calcium (Atorvastatin Calcium 80 Mg Tablet) 80 mg PO DAILY [facility] Last Admin: 07/26/23 08:43 Dose: 80 mg Benzonatate (Benzonatate 100 Mg Capsule) 100 mg PO TID PRN PRN Reason: Cough Docusate Sodium (Docusate Sodium 100 Mg Capsule) 100 mg PO DAILY PRN PRN Reason: Constipation Duloxetine HCl (Duloxetine Hcl 30 Mg Capsule.Dr) 30 mg PO BEDTIME [facility] Last Admin: 07/25/23 23:50 Dose: 30 mg Enoxaparin Sodium (Enoxaparin Sodium 40 Mg/0.4 Ml Syringe) 40 mg SUBCUT Q24H [facility] Last Admin: 07/26/23 10:34 Dose: 40 mg Melatonin (Melatonin 3 Mg Tablet) 6 mg PO BEDTIME PRN PRN Reason: Insomnia Metoprolol Succinate (Metoprolol Succinate Er 25 Mg Tab.Er.24h) 25 mg PO DAILY [facility]; Protocol Last Admin: 07/26/23 08:43 Dose: 25 mg Nicotine (Nicotine 21 Mg Patch.Td24) 21 mg TRANSDERMA DAILY [facility] Last Admin: 07/26/23 08:48 Dose: 21 mg Nitroglycerin (Nitroglycerin 0.4 Mg Tab.Subl) 0.4 mg SUBLINGUAL Q5M PRN PRN Reason: Chest Pain Ondansetron HCl (Ondansetron Hcl 4 Mg/2 Ml Vial) 4 mg IVPUSH Q8H PRN PRN Reason: Nausea and Vomiting Sodium Chloride (0.9 % Sodium Chloride Flush 3 Ml Syringe) 3 ml IVFLUSH QSHIFT [facility] Last Admin: 07/26/23 08:45 Dose: 3 ml Tamsulosin HCl (Tamsulosin Hcl 0.4 Mg Capsule) 0.4 mg PO BEDTIME [facility] Last Admin: 07/25/23 23:50 Dose: 0.4 mg Tramadol HCl (Tramadol Hcl 50 Mg Tablet) 50 mg PO TID [facility] Last Admin: 07/26/23 08:44 Dose: 50 mg Vitamin D (Cholecalciferol (Vitamin D3) 25 Mcg Tablet) 50 mcg PO DAILY [facility] Last Admin: 07/26/23 08:43 Dose: 50 mcg Home Medications ?Medication ?Instructions ?Recorded ?Confirmed ?Last Taken ?Type aspirin 81 mg tablet,delayed 81 mg PO DAILY 02/12/22 07/25/23 07/25/23 History release (Adult Low Dose Aspirin) nitroglycerin 0.4 mg sublingual 0.4 mg sublingual Q5M PRN Chest 03/18/22 07/25/23 Unknown History tablet Pain tamsulosin 0.4 mg capsule (Flomax) 0.4 mg PO BEDTIME 07/21/23 07/25/23 07/24/23 History duloxetine 30 mg capsule,delayed 30 mg PO BEDTIME 07/25/23 07/25/23 07/24/23 History release lisinopril 5 mg tablet 5 mg PO DAILY 07/25/23 07/25/23 07/24/23 History tramadol 50 mg tablet 50 mg PO TID pain 07/25/23 07/25/23 07/24/23 History Physical Exam Vital Signs: Vital Signs: Last Vital Signs Temp 98.4 F 07/26/23 12:00 Pulse 82 07/26/23 12:00 Resp 20 07/26/23 12:00 BP 131/63 07/26/23 12:00 Pulse Ox 95 07/26/23 12:00 O2 Del Method Room Air 07/26/23 12:00 BMI result Body Mass Index 27.4 GENERAL APPEARANCE: in no acute distress, pleasant. NECK: no carotid bruit, no jugular venous distention. SKIN: no suspicious lesions, warm and dry. HEART: no murmurs, regular rate and rhythm. LUNGS: clear to auscultation bilaterally. ABDOMEN: soft, nontender. EXTREMITIES: no edema. PERIPHERAL PULSES: equal. NEUROLOGIC: No gross deficits, AAO X 3 Objective Labs and Meds 07/26/23 06:42 07/25/23 09:05 Lab results: Laboratory Results - last 24 hr 07/25/23 07/26/23 16:39 06:42 WBC 10.4 RBC 4.59 L Hgb 14.6 Hct 42.6 MCV 92.8 MCH 31.8 MCHC 34.3 RDW 12.0 Plt Count 182 MPV 10.4 Absolute Nucleated RBC 0.000 Nucleated RBC % (auto) 0.0 Triglycerides 192 H Cholesterol 138 LDL Cholesterol, Calc 67 HDL Cholesterol 33 L Urine Color Yellow Urine Appearance Clear Urine pH 6.0 Ur Specific [place] >= 1.030 H Urine Protein Negative Urine Glucose (UA) Negative Urine Ketones Negative Urine Blood Negative Urine Nitrite Negative Ur Leukocyte Esterase Negative Assessment and Plan (1) Cardioembolic stroke: Status: Acute (2) Acute CVA (cerebrovascular accident): Status: Acute Plan 52-year-old gentleman presenting for acute CVA, likely embolic. Echo- no LV thrombus. Neuro rec anticoag, start Eliquis. Will arrange TRUDY to rule out Afib. Procedures Date of Service Date of Service: 07/26/23
--- NOTE | 2023-07-26 15:44 | MHC.CM.PN ---
Patient has been medically cleared fir dc to home today, self care.
--- NOTE | 2023-07-26 15:53 | PM.DS ---
DS: Providers Provider Date of Service: 07/26/23 Date of admission: 07/25/23 18:07 Date of discharge: 07/26/23 Primary care physician: Unknown Physician Consults: 07/25/23 18:13 Consult to Neurology Routine Consulting Provider: [facility] Reason for consultation: Acute CVA, received tNK 07/25/23 18:17 Consult to Cardiology Routine Consulting Provider[place] [facility] [place] Reason for consultation: Acute CVA, ?candidate for anticoagulation DS: Diagnosis Discharge Diagnosis (1) Acute CVA (cerebrovascular accident): Status: Acute (2) Cardiomyopathy: Status: Acute (3) Cardioembolic stroke: Status: Acute DS: Summary Hospital Course Hospital Course: From the history and physical by the admitting hospitalist, VISHNU Ronquillo, 07/25/23: Pt is a 52-year-old male with a PMH significant for?nonischemic cardiomyopathy, CAD with OR 4 years prior s/p ICD in place, hx of TIA, HTN, HLD, multiple back and neck surgeries and anxiety who presents to the ED with?left-sided numbness and weakness since this morning. Patient reports he awoke in his normal state of health slightly before 06:50, but within a few minutes had sudden onset left-sided facial numbness and drooping, headache, difficulty swallowing, and numbness and weakness in upper and lower extremities. Reports he ?just felt weird?. Also complains of photophobia. No chest pain/pressure, palpitations. Shortness of breath at baseline. Patient immediately called EMS who brought him to the ED for further evaluation where he was given TNK with good results. Reports still experiencing slight tingling on the left side of his face, but overall feels ?normalish and essentially back to baseline. Denies significant left-sided numbness, tingling, or weakness. No headache, acute vision changes, or difficulty swallowing or speaking. Denies significant history of alcohol use, though notes still smokes a few cigarettes daily, and vapes ?like it's going out of style?. Patient originally going to go to ICU for 24 hour observation, however due to limited bed availability neurology was consulted and suggested patient could be observed for a 6 hour period of time in the ED and transferred to the medical floor if there was no evidence of acute intracranial bleed. In the ED pt was hypotensive as low as 98/56, vitals otherwise WNL. Labs were significant for mildly elevated bilirubin of 1.2, otherwise grossly unremarkable. No leukocytosis. Stable H&H. No significant electrolyte abnormalities. Renal and hepatic function baseline. Troponin negative. CT of head found no acute intracranial hemorrhage or edematous territorial infarction. CTA of head and neck negative for large vessel occlusion, saccular aneurysm, or dissection, as well as negative for hemodynamically significant stenosis, dissection or aneurysm. EKG demonstrated normal sinus rhythm without evidence of significant ST elevations or depressions. Pt was treated with TNK and nicotine replacement therapy. Pt will be admitted to the hospital for treatment and further evaluation of acute CVA. He was admitted to the telemetry unit and observed for 30 hours after TNK administration. Could not perform MRI due to ICD. All neurologic symptoms resolved completely. No arrhythmias on telemetry but highly suspected to have cardioembolic source of stroke with recent EF of 20-25%. In consultation with Neurology and Cardiology, apixaban was added to aspirin and these were started after 24 hours. Atorvastatin continued. He was counseled to quit smoking and was prescribed NRT. He should follow up with Primary Care and Cardiology in 1-2 weeks. Cardiology to arrange TRUDY to look for occult AF. Time Attestation Discharge Coordination Time (in mins): 45 Quality: Safe Use of Opioids Does Pt have an Active Cancer Diagnosis on the Problem List?: No Quality: Stroke Does the patient have a stroke diagnosis?: Yes Reason for No Anti-thrombotic at DC: N/A - Med Ordered Reason for No Anticoagulant at DC: N/A - Med Ordered Reason Not Initiating IV-Tpa: N/A - Med Ordered Reason for No Anti-thrombotic by Day Two: N/A - Med Ordered Reason for No Statin at DC: N/A - Med Ordered Physical Exam Vital Signs: Vital Signs: Last Vital Signs Temp 97.5 F 07/26/23 15:18 Pulse 103 H 07/26/23 15:18 Resp 18 07/26/23 15:18 BP 126/60 07/26/23 15:18 Pulse Ox 96 07/26/23 15:18 O2 Del Method Room Air 07/26/23 15:18 BMI result Body Mass Index 27.4 Gen: in no acute distress HEENT: sclera anicteric, moist mucus membranes Neck: supple Lungs: clear to auscultation bilaterally Heart: regular rate and rhythm, no murmurs Abd: soft, non-tender, non-distended Ext: no edema Skin: warm/well-perfused Neuro: alert and oriented x3, no focal findings Psych: appropriate affect DS: Data Data Completed and Pending Completed studies during hospitalization [Text1]: Laboratory Results WBC 10.4 X10*3/uL (4.8-10.8) 07/26/23 06:42 RBC 4.59 X10*6/uL (4.60-5.80) L 07/26/23 06:42 Hgb 14.6 g/dl (14.0-18.0) 07/26/23 06:42 Hct 42.6 % (42.0-52.0) 07/26/23 06:42 MCV 92.8 fL (80.0-98.0) 07/26/23 06:42 MCH 31.8 pg (27.0-33.0) 07/26/23 06:42 MCHC 34.3 g/dl (31.0-36.0) 07/26/23 06:42 RDW 12.0 % (11.0-16.0) 07/26/23 06:42 Plt Count 182 X10*3/uL (160-400) 07/26/23 06:42 MPV 10.4 fL (9.4-12.4) 07/26/23 06:42 Immature Gran % (Auto) 0.3 % (0.0-0.4) 07/25/23 09:05 Neut % (Auto) 60.9 % (45-73) 07/25/23 09:05 Lymph % (Auto) 27.8 % (20-40) 07/25/23 09:05 Carter % (Auto) 6.9 % (2-11) 07/25/23 09:05 Eos % (Auto) 3.5 % (0-4) 07/25/23 09:05 Baso % (Auto) 0.6 % (0-2) 07/25/23 09:05 Lymph # (Auto) 2.7 X10*3/uL (1.2-4.9) 07/25/23 09:05 Carter # (Auto) 0.7 X10*3/uL (0.1-1.2) 07/25/23 09:05 Eos # (Auto) 0.3 X10*3/uL (0.0-0.4) 07/25/23 09:05 Baso # (Auto) 0.1 X10*3/uL (0.0-0.2) 07/25/23 09:05 Abs Immat Gran (auto) 0.03 X10*3/uL (0.00-0.03) 07/25/23 09:05 Absolute Neuts (auto) 5.9 x10*3/uL (2.0-8.3) 07/25/23 09:05 Absolute Nucleated RBC 0.000 X10*3/uL (0.0-0.012) 07/26/23 06:42 Nucleated RBC % (auto) 0.0 /100WBC (0.0-0.2) 07/26/23 06:42 PT 11.7 SEC (11.1-13.3) 07/25/23 09:05 Whole Blood PT 13.0 sec (11.1-13.5) 07/25/23 09:17 INR 1.0 (0.9-1.1) 07/25/23 09:05 Whole Blood INR 1.1 (0.9-1.1) 07/25/23 09:17 APTT 31.7 SEC (26.0-36.8) 07/25/23 09:05 Sodium 138 mmol/L (135-145) 07/25/23 09:05 Potassium 4.4 mmol/L (3.3-5.1) 07/25/23 09:05 Chloride 105 mmol/L (96-108) 07/25/23 09:05 Carbon Dioxide 28 mmol/L (22-29) 07/25/23 09:05 Anion Gap 9 (12-20) L 07/25/23 09:05 BUN 12 mg/dL (9-16) 07/25/23 09:05 Creatinine 0.84 mg/dL (0.5-1.4) 07/25/23 09:05 Estim Creat Clear Calc 116.8 07/25/23 09:05 Estimated GFR > 60 07/25/23 09:05 POC Glucose 111 mg/dL (60-115) 07/25/23 09:15 Random Glucose 111 mg/dL (60-115) 07/25/23 09:05 Calcium 9.7 mg/dL (8.4-10.2) 07/25/23 09:05 Magnesium 2.0 mg/dL (1.6-2.6) 07/25/23 09:05 Total Bilirubin 1.2 mg/dL (0.0-1.0) H 07/25/23 09:05 Direct Bilirubin 0.3 mg/dL (0.0-0.5) 07/25/23 09:05 AST 14 U/L (5-37) 07/25/23 09:05 ALT 20 U/L (0-40) 07/25/23 09:05 Alkaline Phosphatase 77 U/L (39-117) 07/25/23 09:05 Total Creatine Kinase 75 U/L (38-174) 07/25/23 09:05 Troponin I High Sens < 2.7 ng/L (<3.5-35.0) 07/25/23 09:05 Total Protein 6.9 g/dL (6.5-8.0) 07/25/23 09:05 Albumin 4.2 g/dL (3.5-5.0) 07/25/23 09:05 Triglycerides 192 mg/dL (<150) H 07/26/23 06:42 Cholesterol 138 mg/dL (<200) 07/26/23 06:42 LDL Cholesterol, Calc 67 mg/dL (<100) 07/26/23 06:42 HDL Cholesterol 33 mg/dL (>40) L 07/26/23 06:42 Urine Color Yellow 07/25/23 16:39 Urine Appearance Clear 07/25/23 16:39 Urine pH 6.0 (5.0-9.0) 07/25/23 16:39 Ur Specific [place] >= 1.030 (1.005-1.025) H 07/25/23 16:39 Urine Protein Negative mg/dL (Neg-Trace) 07/25/23 16:39 Urine Glucose (UA) Negative mg/dL (Negative) 07/25/23 16:39 Urine Ketones Negative mg/dL (Negative) 07/25/23 16:39 Urine Blood Negative (Negative) 07/25/23 16:39 Urine Nitrite Negative (Negative) 07/25/23 16:39 Ur Leukocyte Esterase Negative (Negative) 07/25/23 16:[address] 07/25/23 09:09 IMPRESSION: No acute intracranial hemorrhage or edematous territorial infarction. These results were discussed with Michael Dos Santos MD by telephone on 07/25/2023 at 9:17 AM and it was ascertained that the content of the report was understood at the time of direct communication. Head/Neck CTA 07/25/23 09:54 IMPRESSION: CTA head demonstrates no large vessel occlusion, saccular aneurysm, or dissection. CTA neck demonstrates no hemodynamically significant stenosis, dissection, or aneurysm. The above findings were communicated to Michael Dos Santos at 10:16am on 07/25/2023 Discharge Plan Discharge Anticipated Discharge Date/Time: 07/26/23 15:08 Patient Disposition: Home, Self-Care Discharge Diagnosis: acute stroke Referrals: Po,Sabina Sanders MD [Physician] - 1 Week Discharge Medications: New nicotine 21 mg/24 hr Patch 24 Hour 21 mg transdermal DAILY Qty: 28 0RF Eliquis 5 mg Tablet 5 mg PO BID Qty: 60 0RF Continued aspirin [Adult Low Dose Aspirin] 81 mg tablet,delayed release (DR/EC) 81 mg PO DAILY cholecalciferol (vitamin D3) 50 mcg (2,000 unit) tablet 50 mcg PO DAILY Qty: 90 3RF spironolactone 25 mg tablet 25 mg PO DAILY Qty: 30 11RF atorvastatin 80 mg tablet 80 mg PO DAILY Qty: 30 11RF albuterol sulfate [Ventolin HFA] 90 mcg/actuation HFA aerosol inhaler 2 puff inhalation Q4-6H PRN (Reason: Wheezing) Qty: 8.5 0RF tramadol 50 mg tablet 50 mg PO TID duloxetine 30 mg capsule,delayed release(DR/EC) 30 mg PO BEDTIME lisinopril 5 mg tablet 5 mg PO DAILY nitroglycerin 0.4 mg tablet, sublingual 0.4 mg sublingual Q5M PRN (Reason: Chest Pain) Rx Instructions: do not exceed 3 doses per episode tamsulosin [Flomax] 0.4 mg capsule 0.4 mg PO BEDTIME metoprolol succinate 25 mg tablet extended release 24 hr 25 mg PO DAILY Qty: 20 0RF Rx Instructions: Two week Trial of metoprolol XL 25 mg daily. Patient will be holding carvedilol during this time. Discharge Orders: Discharge Order (Routine); Ordered 07/26/23 Ordered By: Mary Patel Diet: Advance to usual diet Activity on Discharge: As tolerated Stand Alone Forms: Patient Portal Discharge page Print Language: Ghanaian Care Plan Goals: stroke prevention Health Concerns: acute stroke Plan of Treatment: continue aspirin, atorvastatin, and antihypertensives start apixaban 5 mg twice daily quit smoking; use nicotine replacement to aid you in this follow up with Primary Care and Cardiology in 1-2 weeks Mediterranean diet Assessment: See Discharge Summary. Patient Instructions: Stroke (DC) Discharge Date/Time: 07/26/23 16:23
[2023-07-26] MEDS: Aspirin 81 MG TAB.CHEW PO (16:13)
== END 2023-07-26 16:23 | disposition home or self-care (01) | DRG 62 ==
LOC: HO.ED 15:34 → HO.EDOVER 18:19 → HO.IMC 07-26 06:07
PROVIDERS: Admitting Provider Student in an Organized Health Care Education/Training Program; Emergency Provider Emergency Medicine Emergency Medical Services; Visit Provider Family Medicine
DX: I63.9 Cerebral infarction, unspecified (principal); I42.8 Other cardiomyopathies; I25.10 Atherosclerotic heart disease of native coronary artery without angina pectoris; J44.9 Chronic obstructive pulmonary disease, unspecified; R29.810 Facial weakness; Z95.810 Presence of automatic (implantable) cardiac defibrillator; R29.706 NIHSS score 6; M96.1 Postlaminectomy syndrome, not elsewhere classified; I95.9 Hypotension, unspecified; Z79.82 Long term (current) use of aspirin; Z79.899 Other long term (current) drug therapy
CPT/HCPCS: 36415; 70450; 70496; 70498; 80048; 80061; 80076; 81003; 82550; 82947; 83735; 84484; 85025; 85027; 85610; 85730; 93005; 93308; 97161; 99285; J1650; J3101; Q9957; Q9967

== ENCOUNTER → 2023-07-25 09:05 | Outpatient (BNV) | payer MEDICARE, MEDICAID, SELFPAY | PROVIDERS: Emergency Provider Emergency Medicine Emergency Medical Services; Visit Provider Psychiatry & Neurology Neurology | DX: I63.49 Cerebral infarction due to embolism of other cerebral artery (principal) | CPT/HCPCS: 99222 ==

== ENCOUNTER 2023-07-25 18:07 | Outpatient (BNV) | payer MEDICARE, MEDICAID, SELFPAY | END 2023-07-26 07:00 | PROVIDERS: Admitting Provider Student in an Organized Health Care Education/Training Program; Emergency Provider Emergency Medicine Emergency Medical Services; Visit Provider Internal Medicine Cardiovascular Disease | DX: I63.9 Cerebral infarction, unspecified (principal); R93.1 Abnormal findings on diagnostic imaging of heart and coronary circulation | CPT/HCPCS: 93308 ==

== ENCOUNTER → 2023-07-25 18:07 | Outpatient (BNV) | payer MEDICARE, MEDICAID, SELFPAY | PROVIDERS: Admitting Provider Student in an Organized Health Care Education/Training Program; Emergency Provider Emergency Medicine Emergency Medical Services; Visit Provider Family Medicine | DX: I63.9 Cerebral infarction, unspecified (principal); R29.810 Facial weakness; I42.9 Cardiomyopathy, unspecified | CPT/HCPCS: 99223; 99239 ==

== ENCOUNTER → 2023-07-25 18:07 | Outpatient (BNV) | payer MEDICARE, MEDICAID, SELFPAY | PROVIDERS: Admitting Provider Student in an Organized Health Care Education/Training Program; Emergency Provider Emergency Medicine Emergency Medical Services; Visit Provider Internal Medicine Cardiovascular Disease | DX: I63.9 Cerebral infarction, unspecified (principal) | CPT/HCPCS: 93010; 99223 ==

== ENCOUNTER → 2023-08-12 07:47 | Outpatient (BNV) | payer MEDICARE, MEDICAID, SELFPAY | PROVIDERS: Visit Provider Internal Medicine | DX: I49.3 Ventricular premature depolarization (principal) | CPT/HCPCS: 93272 ==

== ENCOUNTER 2023-08-12 12:36 | Outpatient (AMB) | payer MEDICARE, MEDICAID, SELFPAY ==
[2023-08-12 12:46] VITALS: BP 106/52; PULSE 110; O2SAT 95; BMI 27.3
--- NOTE | 2023-08-12 12:46 | MHC.PC.OV ---
Vital Signs 08/12/23 12:46 Height 6 ft 2 in Weight 213 lb BMI 27.3 BP 106/52 L Blood Pressure Location Lt brachial Position Sitting Pulse 110 H Pulse Source Pulse Oximeter Pulse Oximetry (%) 95 Oxygen Delivery Method Room Air Intake Visit Reasons: FAiled Back syndrome, COLETTE Allergies bupropion [From Wellbutrin] Allergy (Intermediate, Verified 08/12/23 12:47) Hives, Rage varenicline [From Chantix] Allergy (Intermediate, Verified 08/12/23 12:47) Agitation, Aggression codeine [Codeine] Allergy (Mild, Verified 08/12/23 12:47) HIVES/ITCHING methadone [Methadone] Allergy (Mild, Verified 08/12/23 12:47) HIVES/ITCHING barium sulfate Allergy (Unknown, Verified 08/12/23 12:47) Unknown Black Pepper-Turmeric Allergy (Unknown, Uncoded 08/12/23 12:47) Unknown Tobacco use date assessed: 07/17/23 Dental Screening Dental Screen Date: 07/17/23 HPI FAiled Back syndrome, COLETTE HPI Details 52-year-old male smoker with multiple medical problems coronary artery disease with cardiomyopathy ICD in place hypertension hypercholesterolemia COPD with a failed back syndrome and generalized anxiety disorder coming in for follow-up. Last seen in 07/2023. Problem of narcotic pain medication history but presently has been placed on tramadol. Review of the notes 07/27/2023 left-sided numbness and weakness and left facial drooping. Patient was given TNK noted hypotension CT scan no acute intracranial hemorrhage or edema knows territorial infarction. Negative for large vessel occlusion saccular aneurysm or dissection no MRI due to ICD. Patient discharged home on Eliquis and nicotine patches., 07/21/2023 seen Cardiology echocardiogram in 03/22/2022 EF 35 to 40%, 05/21/2023 EF 20-25% global hypokinesis mild to moderate decrease in RV systolic function on carvedilol lisinopril nuclear stress test 07/21/2023 no ischemia and fixed perfusion defects. Carvedilol trial of changed to metoprolol sleep study done 07/21/2023 showing mild sleep apnea with an AHI of 7.2. [facility] Medical History Hyperlipidemia History of TIA (transient ischemic attack) (~2013) History of cardiac arrest (~2019) Cardiac defibrillator in place Nonischemic cardiomyopathy Atherosclerotic cardiovascular disease Hypertension Hypercholesterolemia Restrictive lung disease COPD (chronic obstructive pulmonary disease) Cigarette nicotine dependence Nicotine dependence, cigarettes, uncomplicated Uncomplicated opioid dependence Chronic pain syndrome Rotator cuff arthropathy of both shoulders MRSA infection Surgical History History of implantable cardiac defibrillator (ICD) History of cardiac cath S/P insertion of spinal cord stimulator History of back surgery History of fusion of cervical spine History of repair of left rotator cuff History of repair of right rotator cuff History of cholecystectomy History of colonoscopy Family History Mother Multiple sclerosis Father Diabetes Amputat leg, bilat-complicated Sister Lupus Social History Household Members: Family Housing: House Do you presently have visiting nurse or other home services: No Alcohol intake: never Patient Tobacco Use Status: Current everyday Tobacco user Tobacco use type: Cigarette Cigarettes Per Day: 2 Years Smoked: (onset 9yo, 1/2-3ppd x 42yrs, now <1/4ppd - 30+PYH) Packs per year/per ci.00 e-Cigarette/Vaping Use: Currently Using service: No Cognitive needs: No Hearing needs: No Vision needs: No Questionnaire PHQ-9 Over the last 2 weeks, how often have you been bothered by any of the following problems? 1. Little interest or pleasure in doing things: not at all 2. Feeling down, depressed, or hopeless: several days 3. Trouble falling or staying asleep, or sleeping too much: more than half the days 4. Feeling tired or having little energy: nearly every day 5. Poor appetite or overeating: not at all 6. Feeling bad about yourself - or that you are a failure or have let yourself or your family down: more than half the days 7. Trouble concentrating on things, such as reading the newspaper or watching television: more than half the days 8. Moving or speaking so slowly that other people could have noticed. Or the opposite - being so fidgety or restless that you have been moving around a lot more than usual: not at all 9. Thoughts that you would be better off or of hurting yourself in some way: not at all Total score: 10 Depression Screening Interpretation: Negative Depression Screening Done: Yes 90871 - PHQ-9 Billing: Yes Source: Developed by Drs. King Macias, Melissa Aguilar, Mohan Lovett and colleagues, with an educational cosmo from [employer]. Thrive Questionnaire Date Thrive assessed: 07/26/23 AUDIT C Alcohol Use Questionnaire (AUDIT-C) 1. How often do you have a drink containing alcohol?: Never 3. How often do you have six or more drinks on one occasion?: Never Total Score: 0 Score Reviewed/Action Taken: No COLETTE-7 AMB Questionnaire COLETTE-7 Date COLETTE - 7 assessed: 06/17/23 Source: Developed by Drs. King Macias, Melissa Aguilar, Mohan Lovett and colleagues, with an educational cosmo from [employer]. Physical exam (Primary Care) Vital Signs: Oxygen Delivery Method Room Air 08/12/23 12:46 BMI result Body Mass Index 27.3 Tobacco/Smoking Status: Tobacco use Status Tobacco use date assessed 07/17/23 08/12/23 12:47 Patient Tobacco Use Status Current everyday Tobacco 08/12/23 12:47 Tobacco use type Cigarette 08/12/23 12:47 e-Cigarette/Vaping Use Currently Using 08/12/23 12:47 PHQ-9: PHQ-9 Score PHQ-9: Total score 10 08/12/23 12:47 Depression Screening Interpretation: Negative Thrive Assessment: Date of Thrive Assessment Date Thrive assessed 07/26/23 08/12/23 12:47 Const General: alert; No acute distress Eyes Conjunctivae: conjunctivae normal Resp Auscultation: clear to auscultation bilaterally Cardio Rate: regular rate Rhythm: regular rhythm GI Inspection: Yes normal to inspection Extrem General: Yes normal to inspection and No edema Assessment and Plan Assessment & Plan (1) Acute CVA (cerebrovascular accident): Comment: 07/2023 Naun used Code(s): I63.9 - Cerebral infarction, unspecified Plan: Control the cholesterol, weight, blood pressure present has been placed on anticoagulation. PAtient will have a monitor placed (2) Nonischemic cardiomyopathy: Code(s): I42.8 - Other cardiomyopathies Plan: Presently on anticoagulation continue with your hormonal control (3) Atherosclerotic cardiovascular disease: Code(s): I25.10 - Atherosclerotic heart disease of [place] coronary artery without angina pectoris Plan: Control the cholesterol, weight, blood pressure continue with anticoagulation (4) Hypertension: Code(s): I10 - Essential (primary) hypertension Plan: Continue with blood pressure medication. Decrease salt intake and exercise on lisinopril 5 mg once a day and carvedilol was changed to metoprolol 25 mg once a day and spironolactone 25 mg once a day. dizzy with metoprolol more and so back to carvedilol (5) Hypercholesterolemia: Code(s): E78.00 - Pure hypercholesterolemia, unspecified Plan: Avoid fried foods, chicken skin, eggs, butter margarine, pastries and meat. Be it pork or beef they have a lot of cholesterol LDL goal of less than 70 preferably 55 lower and triglyceride of less than 150 on atorvastatin 80 mg once a day (6) Postlaminectomy syndrome of lumbar region: Code(s): M96.1 - Postlaminectomy syndrome, not elsewhere classified Plan: Presently placed on tramadol although patient states not helping. (7) Nicotine dependence, cigarettes, uncomplicated: Comment: (current smoker - onset 9yo, 1/2-3ppd x 42yrs, now <1/4ppd - 30+PYH) Code(s): F17.210 - Nicotine dependence, cigarettes, uncomplicated Plan: Patient is strongly advised to stop smoking! Patient continues to smoke (8) Vertigo: Code(s): R42 - Dizziness and giddiness Plan: sent for PT and meclizine rx sent Orders: Orders PT Evaluation and Treatment Today R42 - Dizziness and giddiness Medications: New meclizine 25 mg PO TID 30 tabs 0RF R42 - Dizziness and giddiness Coding Level of Care Code Est Pt Level 4 (00513) Complex EM visit Add On G2211 Diagnoses Acute CVA (cerebrovascular accident) I63.9 Nonischemic cardiomyopathy I42.8 Atherosclerotic cardiovascular disease I25.10 Hypertension I10 Hypercholesterolemia E78.00 Postlaminectomy syndrome of lumbar region M96.1 Nicotine dependence, cigarettes, uncomplicated F17.210 Vertigo R42
== END 2023-08-12 13:08 | disposition home or self-care (01) ==
PROVIDERS: PCP Internal Medicine; Visit Provider Internal Medicine
DX: I42.8 Other cardiomyopathies (principal); I25.10 Atherosclerotic heart disease of native coronary artery without angina pectoris; I10 Essential (primary) hypertension; E78.00 Pure hypercholesterolemia, unspecified; Z86.73 Personal history of transient ischemic attack (TIA), and cerebral infarction without residual deficits; M96.1 Postlaminectomy syndrome, not elsewhere classified; F17.210 Nicotine dependence, cigarettes, uncomplicated; R42 Dizziness and giddiness
CPT/HCPCS: 99214; G2211

== ENCOUNTER → 2023-08-12 14:51 | Outpatient (REF) | payer MEDICARE, MEDICAID, SELFPAY ==
--- NOTE | 2023-08-12 07:47 | HM_ITS ---
* Procedure length 30 days. Wear time 26 days. * Underlying rhythm is sinus with an average rate of 77/Min. * Occasional supraventricular ectopy with a burden of 1%. * Occasional ventricular ectopy with a burden of 2.3%. Short runs noted. Longest 15 beats, at a rate between 90-100/Min. * Patient activated the symptom burden 30 6 times. Reported 1 symptom. Dizziness/faint-correlates with PVC. MTDD
== END ==
LOC: HO.CARD 14:51
PROVIDERS: Visit Provider Internal Medicine Cardiovascular Disease
DX: I49.8 Other specified cardiac arrhythmias (principal)
CPT/HCPCS: 93270

== ENCOUNTER → 2023-08-18 23:59 | Outpatient (BNV) | payer MEDICARE, MEDICAID, SELFPAY ==
--- NOTE | 2023-08-27 13:34 | A.OFFVIS_ITS ---
Intake Visit Reasons: Remote ICD Check- [place] Allergies bupropion [From Wellbutrin] Allergy (Intermediate, Verified 08/12/23 12:47) Hives, Rage varenicline [From Chantix] Allergy (Intermediate, Verified 08/12/23 12:47) Agitation, Aggression codeine [Codeine] Allergy (Mild, Verified 08/12/23 12:47) HIVES/ITCHING methadone [Methadone] Allergy (Mild, Verified 08/12/23 12:47) HIVES/ITCHING barium sulfate Allergy (Unknown, Verified 08/12/23 12:47) Unknown Black Pepper-Turmeric Allergy (Unknown, Uncoded 08/12/23 12:47) Unknown [facility] Medical History Hyperlipidemia History of TIA (transient ischemic attack) (~2013) History of cardiac arrest (~2019) Cardiac defibrillator in place Nonischemic cardiomyopathy Atherosclerotic cardiovascular disease Hypertension Hypercholesterolemia Restrictive lung disease COPD (chronic obstructive pulmonary disease) Cigarette nicotine dependence Nicotine dependence, cigarettes, uncomplicated Uncomplicated opioid dependence Chronic pain syndrome Rotator cuff arthropathy of both shoulders MRSA infection Surgical History History of implantable cardiac defibrillator (ICD) History of cardiac cath S/P insertion of spinal cord stimulator History of back surgery History of fusion of cervical spine History of repair of left rotator cuff History of repair of right rotator cuff History of cholecystectomy History of colonoscopy Family History Mother Multiple sclerosis Father Diabetes Amputat leg, bilat-complicated Sister Lupus Social History Household Members: Family Housing: House Do you presently have visiting nurse or other home services: No Alcohol intake: never Patient Tobacco Use Status: Current everyday Tobacco user Tobacco use type: Cigarette Cigarettes Per Day: 2 Years Smoked: (onset 9yo, 1/2-3ppd x 42yrs, now <1/4ppd - 30+PYH) e-Cigarette/Vaping Use: Currently Using service: No Cognitive needs: No Hearing needs: No Vision needs: No Office Procedures Cardiac Device Check Cardiac Device Check Details: Date of service 08/18/2023; Battery life 12 years; normal lead parameters; no treated VT/VF; normal ICD function. [id number] Cardiac Interrogation, implant defibrillator w/interim Procedure code (CPT) selection complete Assessment & Plan Assessment & Plan (1) Nonischemic cardiomyopathy: Code(s): I42.8 - Other cardiomyopathies Category: Medical Plan x Coding Level of Care Code Procedure Only Diagnoses Nonischemic cardiomyopathy I42.8 CPT Codes Cardiac Device Check - Cardiac Device 13: [id number] Cardiac Interrogation, implant defibrillator w/interim ([id number])
== END ==
PROVIDERS: Visit Provider Internal Medicine
DX: I42.8 Other cardiomyopathies (principal); Z95.810 Presence of automatic (implantable) cardiac defibrillator
CPT/HCPCS: 93295

== ENCOUNTER 2023-08-29 08:04 | Outpatient (AMB) | payer MEDICARE, MEDICAID, SELFPAY ==
--- NOTE | 2023-08-29 08:07 | AM.OFFWIN_ITS ---
Intake Vital Signs 08/29/23 08:08 Height 6 ft 2 in Weight 213 lb BMI 27.3 BP 118/74 Blood Pressure Location Rt brachial Position Sitting Pulse 88 Pulse Source Pulse Oximeter Temp 97.7 F Temp Source Oral Pulse Oximetry (%) 98 Intake Visit Reasons: EP sinus/ear infection Intake Note: pt is here for sinus and ear infection Patient Tobacco Use Status: Current everyday Tobacco user Allergies bupropion [From Wellbutrin] Allergy (Intermediate, Verified 08/29/23 08:08) Hives, Rage varenicline [From Chantix] Allergy (Intermediate, Verified 08/29/23 08:08) Agitation, Aggression codeine [Codeine] Allergy (Mild, Verified 08/29/23 08:08) HIVES/ITCHING methadone [Methadone] Allergy (Mild, Verified 08/29/23 08:08) HIVES/ITCHING barium sulfate Allergy (Unknown, Verified 08/29/23 08:08) Unknown Black Pepper-Turmeric Allergy (Unknown, Uncoded 08/12/23 12:47) Unknown Do you need a note to return to daycare/school/sports/work: No HPI HPI Comments History of Present Illness Details Patient is a 53-year-old male complaining of worsening sinus infection. He states he gets them every year and usually requires antibiotics and steroids. He states he has had congestion and sinus pain and bilateral ear pain. He denies any fevers but does have a productive yellow phlegm cough. He denies any shortness of breath or chest pain. [facility] Medical History Hyperlipidemia History of TIA (transient ischemic attack) (~2013) History of cardiac arrest (~2019) Cardiac defibrillator in place Nonischemic cardiomyopathy Atherosclerotic cardiovascular disease Hypertension Hypercholesterolemia Restrictive lung disease COPD (chronic obstructive pulmonary disease) Cigarette nicotine dependence Nicotine dependence, cigarettes, uncomplicated Uncomplicated opioid dependence Chronic pain syndrome Rotator cuff arthropathy of both shoulders MRSA infection Surgical History History of implantable cardiac defibrillator (ICD) History of cardiac cath S/P insertion of spinal cord stimulator History of back surgery History of fusion of cervical spine History of repair of left rotator cuff History of repair of right rotator cuff History of cholecystectomy History of colonoscopy Family History Mother Multiple sclerosis Father Diabetes Amputat leg, bilat-complicated Sister Lupus Social History Household Members: Family Housing: House Do you presently have visiting nurse or other home services: No Alcohol intake: never Patient Tobacco Use Status: Current everyday Tobacco user Tobacco use type: Cigarette Cigarettes Per Day: 2 Years Smoked: (onset 9yo, 1/2-3ppd x 42yrs, now <1/4ppd - 30+PYH) e-Cigarette/Vaping Use: Currently Using [employer] service: No Cognitive needs: No Hearing needs: No Vision needs: No Review of Systems Const All systems reviewed & are unremarkable except as noted in HPI and below Physical Exam Vital Signs: Last Vital Signs Temp 97.7 F 08/29/23 08:08 Pulse 88 08/29/23 08:08 BP 118/74 08/29/23 08:08 Pulse Ox 98 08/29/23 08:08 BMI result Body Mass Index 27.3 Const General: cooperative, healthy appearing, comfortable and no acute distress Orientation/consciousness: patient oriented x3 Limitations: no limitations HEENT Head: Yes normal to inspection Ears: external ears normal and TM's normal bilaterally General nose exam: Normal external nose present, Normal nares present and No nasal discharge present Face and sinus: Yes normal facial exam and Yes sinus tenderness Mouth: Normal oral and palatal mucosa present and moist mucous membranes Throat: Yes posterior oropharynx abnormal (Erythematous) Eyes General: appearance normal, both eyes and all related structures Neck Neck: Yes normal visual inspection Resp Effort & Inspection: normal respiratory effort, able to speak in complete sentences, Actively coughing, no respiratory distress, not tachypneic, no tripod positioning and no use of accessory muscles Skin Other: Holter monitor on left upper chest General skin exam: no rashes or lesions noted Neuro General: patient oriented x3 Extrem General: Yes normal to inspection and Yes no clubbing, cyanosis or edema Assessment & Plan Assessment & Plan (1) Sinusitis: Code(s): J32.9 - Chronic sinusitis, unspecified Qualifiers: Sinusitis location: maxillary Chronicity: acute Recurrence: non- recurrent Qualified Code(s): J01.00 - Acute maxillary sinusitis, unspecified Plan: As patient is on day 5 and seems to be getting worse, I will prescribe antibiotics for his sinus infection as it is likely bacterial at this point. I did tell him if he wanted to wait a day for starting the Augmentin, that would be worthwhile as if it is viral, he should start feeling better tomorrow Plan see above Medications: New amoxicillin-pot clavulanate 875-125 mg 1 tab PO Q12H 10 tabs 0RF Coding Level of Care Code Est Pt Level 3 (51636) Diagnoses Acute non-recurrent maxillary sinusitis J01.00 Sinusitis location: maxillary Chronicity: acute Recurrence: non-recurrent
[2023-08-29 08:08] VITALS: BP 118/74; PULSE 88; TEMP 36.5; O2SAT 98; BMI 27.3
== END 2023-08-29 09:24 | disposition home or self-care (01) ==
PROVIDERS: Visit Provider Physician Assistant
DX: J01.00 Acute maxillary sinusitis, unspecified (principal)
CPT/HCPCS: 99213

== ENCOUNTER 2023-10-07 15:33 | Outpatient (AMB) | payer MEDICARE, MEDICAID, SELFPAY ==
[2023-10-07 15:36] VITALS: BP 120/60; PULSE 58; BMI 28.1
--- NOTE | 2023-10-07 15:36 | A.OFFVIS_ITS ---
Vital Signs 10/07/23 15:36 Height 6 ft 2 in Weight 218 lb 14.704 oz BMI 28.1 BP 120/60 Blood Pressure Location Lt brachial Position Sitting Pulse 58 Pulse Source Pulse Oximeter Intake Visit Reasons: f/up (rs) [employer] Coordinator Required: No Accompanied by: Self / Same As Patient Allergies bupropion [From Wellbutrin] Allergy (Intermediate, Verified 08/29/23 08:08) Hives, Rage varenicline [From Chantix] Allergy (Intermediate, Verified 08/29/23 08:08) Agitation, Aggression codeine [Codeine] Allergy (Mild, Verified 08/29/23 08:08) HIVES/ITCHING methadone [Methadone] Allergy (Mild, Verified 08/29/23 08:08) HIVES/ITCHING barium sulfate Allergy (Unknown, Verified 08/29/23 08:08) Unknown Black Pepper-Turmeric Allergy (Unknown, Uncoded 08/12/23 12:47) Unknown Medication List - Last Reconciled 10/07/23 by YAAKOV NelsonC albuterol sulfate 90 mcg/actuation (Ventolin HFA) 2 puffs inhalation Q4-6H PRN apixaban (Eliquis) 5 mg PO BID 90 days aspirin (Adult Low Dose Aspirin) 81 mg PO DAILY atorvastatin 80 mg PO DAILY carvedilol 3.125 mg PO BID cholecalciferol (vitamin D3) 50 mcg PO DAILY duloxetine 30 mg PO DAILY lisinopril 2.5 mg PO DAILY meclizine 25 mg PO TID nitroglycerin 0.4 mg sublingual Q5M PRN tamsulosin (Flomax) 0.4 mg PO BEDTIME HPI HPI f/up (rs): Details: Daniel is a 53-year-old male with past medical history of hypertension, hyperlipidemia, nonischemic cardiomyopathy, cardiac arrest 2019, STEMI, cardiac catheterization showing no culprit, status post ICD, mild sleep apnea who was admitted to [facility] 07/25/2023 with left-sided numbness and weakn ess in difficulty swallowing. He was thought to have an acute CVA and did receive thrombolytics. His symptoms did resolve. He was seen by Neurology and put on Eliquis for anticoagulation. Did have a cardiac event monitor and now presents for follow-up. Today he reports that he has been doing well recently. He says the only residual effect he has from the CVA is that he forgets words at times. He has no mobility or swallowing issues. His symptom of lightheadedness has improved after stopping lisinopril and spironolactone. No palpitations, presyncope, syncope, falls. No chest discomfort at rest or with activity. He does have some shortness of breath with exertional activities which is not new. No PND, orthopnea or edema. He admits to being mostly sedentary. He has chronic back pain which limits his physical activity. He does have daytime sleepiness and takes naps. He has not had any ICD shocks. Taking meds as directed. No bleeding issues reported. [facility] Medical History Vertigo Stroke Cerebral infarction Hyperlipidemia History of TIA (transient ischemic attack) (~2013) History of cardiac arrest (~2019) Cardiac defibrillator in place Nonischemic cardiomyopathy Atherosclerotic cardiovascular disease Hypertension Hypercholesterolemia Restrictive lung disease COPD (chronic obstructive pulmonary disease) Cigarette nicotine dependence Nicotine dependence, cigarettes, uncomplicated Uncomplicated opioid dependence Chronic pain syndrome Rotator cuff arthropathy of both shoulders MRSA infection Surgical History History of implantable cardiac defibrillator (ICD) History of cardiac cath S/P insertion of spinal cord stimulator History of back surgery History of fusion of cervical spine History of repair of left rotator cuff History of repair of right rotator cuff History of cholecystectomy History of colonoscopy Family History Mother Multiple sclerosis Father Diabetes Amputat leg, bilat-complicated Sister Lupus Social History Household Members: Family Housing: House Do you presently have visiting nurse or other home services: No Alcohol intake: never Patient Tobacco Use Status: Current everyday Tobacco user Tobacco use type: Cigarette Cigarettes Per Day: 2 Years Smoked: (onset 9yo, 1/2-3ppd x 42yrs, now <1/4ppd - 30+PYH) e-Cigarette/Vaping Use: Currently Using service: No Cognitive needs: No Hearing needs: No Vision needs: No Review of Systems Const All systems reviewed & are unremarkable except as noted in HPI and below Denies chills, Reports fatigue, Denies fever(s), Denies frequent falls, Denies weakness, Denies weight gain and Denies weight loss ENT Denies dizziness Card Denies chest pain, Denies leg edema, Denies lightheadedness, Denies palpitations, Denies dyspnea and Denies dyspnea on exertion Resp Denies cough, Denies dyspnea and Denies dyspnea on exertion GI Denies hematochezia Musc Denies abnormal gait, Denies muscle weakness, Denies numbness, Denies radiating pain into limb and Denies tingling Neuro Denies abnormal gait, Denies dizziness, Denies frequent falls, Denies numbness, Denies tingling and Denies weakness Endo Reports fatigue and Denies palpitations Physical Exam Vital Signs: Last Vital Signs Pulse 58 10/07/23 15:36 BP 120/60 10/07/23 15:36 BMI result Body Mass Index 28.1 Const General: cooperative, healthy appearing, comfortable and no acute distress Orientation/consciousness: patient oriented x3 Neck Neck: Yes normal visual inspection and Yes no JVD Resp Effort & Inspection: normal respiratory effort Auscultation: clear to auscultation bilaterally, no crackles, no rales, no rhonchi and no wheezes Cardio Jugular venous distension: no JVD Rate: regular rate Rhythm: regular rhythm Heart sounds: S1 normal heart sound present, S2 normal heart sound present, no murmurs and no rubs Neuro General: patient oriented x3 Extrem General: Yes normal to inspection, No no pedal edema and No calf tenderness Psych Appearance: grossly normal Mental Status: mental status grossly normal Speech and movement: Normal speech and movement present Assessment & Plan Assessment & Plan (1) Acute CVA (cerebrovascular accident): Comment: 07/2023 T and K used Code(s): I63.9 - Cerebral infarction, unspecified Category: Medical Plan: [place] [facility] [place] with report of left-sided weakness, numbness and difficulty swallowing. CT scan of the head showed no acute hemorrhage or infarct. CTA of the head and neck showed no large vessel occlusion, saccular aneurysm or dissection. Due to his symptoms he was given thrombolytics. His symptoms did resolve. He was seen by Neurology and started on Eliquis for a coagulation in. He was thought to have an acute ischemic infarct, possibly cardiac related. He did have a cardiac event monitor on 08/12/2023 for 30 days which showed sinus rhythm with average heart rate 77, occasional SVE, occasional VE with burden 2.3%, longest run 15 beats. No finding of atrial fibrillation. Does have a defibrillator which can assist us in long-term monitoring. Reviewed the above with him. Today he reports occasional word-finding as his only residual symptoms. He has no mobility disorders and no bleeding issues. Will have him continue on Eliquis. (2) NSVT (nonsustained ventricular tachycardia): Code(s): I47.29 - Other ventricular tachycardia Category: Medical Plan: Brief episode noted on cardiac event monitor. He has not had any ICD discharges. (3) Atherosclerotic cardiovascular disease: Code(s): I25.10 - Atherosclerotic heart disease of [place] coronary artery without angina pectoris Category: Medical Plan: History of STEMI 2019 with cardiac arrest, VF/VT. He did undergo cardiac catheterization at that time with no culprit lesion, nonobstructive disease. Echocardiogram has shown reduced EF. He did have history of nonischemic cardiomyopathy prior to his cardiac arrest as well. An echocardiogram was done 03/28/2022 showing EF 35-40%. Repeat echo done 05/30/2023 shows EF 20-25%, global hypokinesis, [id number] decrease in the RV systolic function. He had been on carvedilol and lisinopril for neurohormonal modulation. Due to the concern for drop in EF he did have a nuclear stress test done on 07/17/23 showing no ischemia and fixed perfusion defects of the apex, septum and inferior wall suggesting scar/cardiomyopathy process. Test results reviewed with Dr. Tate, his primary mason apprentice. Overall EF seems unchanged. Will continue on neurohormonal modulation. Today he reports that he stopped the lisinopril and Aldactone. Since that time his symptom of lightheadedness has improved. With his reduced EF it would be beneficial for him to go back on KARTIK inhibitor. Will restart lisinopril at lower dose of 2.5 mg daily. Continue carvedilol. He does not appear fluid overloaded at this time. Will continue hold Aldactone at present. Blood pressure today 120/60. Cardiology follow-up 3 months to re-evaluate condition and further titrate KARTIK inhibitor if able. He is also due for device interrogation that day. (4) History of cardiac arrest: Onset Date: ~2019 Comment: (cardiac arrest - VF/VT 2019 - s/p ICD) Code(s): Z86.74 - Personal history of sudden cardiac arrest Category: Medical Plan: As above (5) Cardiac defibrillator in place: Comment: (s/p cardiac arrest 2019) Code(s): Z95.810 - Presence of automatic (implantable) cardiac defibrillator Category: Medical Plan: [employer] ICD in place. Office interrogation last visit shows device is functioning normally. He V paces less than 1%. Remote monitoring in use. Next office interrogation due in 3 months (6) Hypersomnia: Code(s): G47.10 - Hypersomnia, unspecified Category: Medical Plan: Sleep study recently done shows mild obstructive sleep apnea with a recommendation for position therapy. Patient tells me he only sleeps on his side. He does have daytime sleepiness and takes naps. He is mostly sedentary w hich can contribute to his fatigue. (7) Cardiomyopathy: Code(s): I42.9 - Cardiomyopathy, unspecified Category: Medical Plan: Known history of cardiomyopathy with last echo 20-25%. On exam he has no signs of fluid overload. (8) History of cardiac cath: Comment: (2021- normal left main; LAD 40-50% ostial stenosis; RCA 30-40% stenosis in the proximal part of PLV) Code(s): Z98.890 - Other specified postprocedural states Category: Surgical Plan: No clear anginal sounding symptoms. Continue aspirin indefinitely. Continue high-dose atorvastatin and beta-mckayla. Signs and symptoms of angina reviewed with him. (9) Hospital discharge follow-up: Code(s): Z09 - Encounter for follow-up examination after completed treatment for conditions other than malignant neoplasm Category: Medical Plan: As above Plan Time spent on chart review, documentation, interview and assessment Medications: New lisinopril restart, lower dose 2.5 mg PO DAILY 30 tabs 5RF Coding Level of Care Code Est Pt Level 4 (95559) Diagnoses Acute CVA (cerebrovascular accident) I63.9 NSVT (nonsustained ventricular tachycardia) I47.29 Atherosclerotic cardiovascular disease I25.10 History of cardiac arrest Z86.[address] Z95.810 Hypersomnia G47.10 Cardiomyopathy I42.9 History of cardiac cath Z98.890 Hospital discharge follow-up Z09 Time Spent (min) 30
== END 2023-10-07 16:11 | disposition home or self-care (01) ==
PROVIDERS: Visit Provider Nurse Practitioner Family
DX: I63.9 Cerebral infarction, unspecified (principal); I47.29 Other ventricular tachycardia; I25.10 Atherosclerotic heart disease of native coronary artery without angina pectoris; Z86.74 Personal history of sudden cardiac arrest; Z95.810 Presence of automatic (implantable) cardiac defibrillator; G47.10 Hypersomnia, unspecified; I42.9 Cardiomyopathy, unspecified; Z98.890 Other specified postprocedural states; Z09 Encounter for follow-up examination after completed treatment for conditions other than malignant neoplasm
CPT/HCPCS: 99214

== ENCOUNTER → 2023-10-07 15:33 | Outpatient (BNVA) | payer MEDICARE, MEDICAID, SELFPAY | PROVIDERS: Visit Provider Nurse Practitioner Family | DX: I10 Essential (primary) hypertension (principal); I47.29 Other ventricular tachycardia; I25.10 Atherosclerotic heart disease of native coronary artery without angina pectoris; E78.5 Hyperlipidemia, unspecified; G47.10 Hypersomnia, unspecified; I42.9 Cardiomyopathy, unspecified; Z86.73 Personal history of transient ischemic attack (TIA), and cerebral infarction without residual deficits; Z98.890 Other specified postprocedural states; Z86.74 Personal history of sudden cardiac arrest; Z95.810 Presence of automatic (implantable) cardiac defibrillator | CPT/HCPCS: 99212 ==

== ENCOUNTER 2023-12-26 14:23 | Outpatient (REF) | payer MEDICARE, MEDICAID, SELFPAY ==
[2023-12-26 16:31] LABS: MANUAL DIFF FLAG NO
[2023-12-26 16:33] LABS: Basophils Absolute Auto 0.1 X10*3/uL (0.0-0.2); Basophils Percent Auto 0.5 % (0-2); Eosinophils Absolute Auto 0.4 X10*3/uL (0.0-0.4); Eosinophils Percent Auto 2.2 % (0-4); Hematocrit 46.3 % (42.0-52.0); Hemoglobin 16.3 g/dl (14.0-18.0); Imm Gran Abs Auto 0.06 X10*3/uL (0.00-0.03); Imm Gran Pct Auto 0.4 % (0.0-0.4); Lymphocytes Absolute Auto 3.5 X10*3/uL (1.2-4.9); Lymphocytes Percent Auto 22.1 % (20-40); Mean Corpuscular HGB Conc 35.2 g/dl (31.0-36.0); Mean Corpuscular Hemoglobin 31.5 pg (27.0-33.0); Mean Corpuscular Volume 89.6 fL (80.0-98.0); Monocytes Absolute Auto 1.1 X10*3/uL (0.1-1.2); Monocytes Percent Auto 7.2 % (2-11); Neutrophils Absolute Auto 10.6 x10*3/uL (2.0-8.3); Neutrophils Percent Auto 67.6 % (45-73); Platelet Count 252 X10*3/uL (160-400); Red Blood Count 5.17 X10*6/uL (4.60-5.80); Red Cell Distribution Width 12.1 % (11.0-16.0); White Blood Count 15.7 X10*3/uL (4.8-10.8)
[2023-12-26 16:40] LABS: Estimated Average Glucose 108 mg/dL; Hemoglobin A1C 147.4141 umol/L; Hemoglobin A1c % 5.4 % (<6.0); Total Hemoglobin (HGBA1C) 4169.5527 umol/L
[2023-12-26 16:54] LABS: Alanine Aminotransferase 27 U/L (0-40); Albumin Level 4.2 g/dL (3.5-5.0); Alkaline Phosphatase 81 U/L (39-117); Anion Gap 13 (12-20); Aspartate Amino Transferase 21 U/L (5-37); Bilirubin Total 0.6 mg/dL (0.0-1.0); Blood Urea Nitrogen 15 mg/dL (9-16); Calcium 9.6 mg/dL (8.4-10.2); Carbon Dioxide 23 mmol/L (22-29); Chloride 106 mmol/L (96-108); Estimated Glomerular Filt Rate > 60; Glucose Random 103 mg/dL (60-115); Magnesium 2.1 mg/dL (1.6-2.6); Phosphorus 3.4 mg/dL (2.7-4.5); Potassium 4.2 mmol/L (3.3-5.1); Sodium 138 mmol/L (135-145); Total Protein 7.3 g/dL (6.5-8.0)
== END 2023-12-26 14:24 | disposition home or self-care (01) ==
LOC: HO.LAB 14:23
PROVIDERS: PCP Internal Medicine; Visit Provider Internal Medicine
DX: I42.8 Other cardiomyopathies (principal); I25.10 Atherosclerotic heart disease of native coronary artery without angina pectoris; I10 Essential (primary) hypertension; E78.00 Pure hypercholesterolemia, unspecified; J43.9 Emphysema, unspecified; F41.1 Generalized anxiety disorder; Z86.73 Personal history of transient ischemic attack (TIA), and cerebral infarction without residual deficits; Z79.01 Long term (current) use of anticoagulants; Z95.810 Presence of automatic (implantable) cardiac defibrillator
CPT/HCPCS: 36415; 80053; 83036; 83735; 84100; 85025; 99212

== ENCOUNTER 2023-12-26 14:23 | Outpatient (AMB) | payer MEDICARE, MEDICAID, SELFPAY ==
[2023-12-26 14:54] VITALS: BP 102/70; PULSE 108; O2SAT 96; BMI 27.2
--- NOTE | 2023-12-26 14:54 | MHC.PC.OV ---
Vital Signs 12/26/23 14:54 Height 6 ft 2 in Weight 211 lb 8 oz BMI 27.2 BP 102/70 Blood Pressure Location Lt brachial Position Sitting Pulse 108 H Pulse Source Pulse Oximeter Pulse Oximetry (%) 96 Oxygen Delivery Method Room Air Intake Visit Reasons: CVA, CAD Allergies bupropion [From Wellbutrin] Allergy (Intermediate, Verified 08/29/23 08:08) Hives, Rage varenicline [From Chantix] Allergy (Intermediate, Verified 08/29/23 08:08) Agitation, Aggression codeine [Codeine] Allergy (Mild, Verified 08/29/23 08:08) HIVES/ITCHING methadone [Methadone] Allergy (Mild, Verified 08/29/23 08:08) HIVES/ITCHING barium sulfate Allergy (Unknown, Verified 08/29/23 08:08) Unknown Black Pepper-Turmeric Allergy (Unknown, Uncoded 08/12/23 12:47) Unknown Tobacco use date assessed: 07/17/23 Dental Screening Dental Screen Date: 07/17/23 HPI CVA, CAD HPI Details 53-year-old overweight male(smoker)noted 7 lb weight loss with a history of CVA, nonischemic cardiomyopathy coronary artery disease hypertension hypercholesterolemia , post laminectomy syndrome coming in for follow-up. Last seen in . Review of the notes in October was seen by Cardiology patient on [facility]. Patient had CVA with thrombolytics. CTA head and neck showed no large vessel occlusion saccular aneurysm or dissection. No atrial fibrillation patient does have a defibrillator May 2023 EF of 20-25% global hypokinesis mild to moderate decrease in RV function carvedilol, lisinopril nuclear stress test July 2023 showing no ischemia or P fixed perfusion defects patient has self stopped lisinopril and Aldactone due to dizziness with reduced ejection fraction advised him to go back to the KARTIK inhibitor. Lower dose 2.5 mg once a day. Aspirin indefinitely. PAtient admits getting pain med from outside. [facility] Medical History (Updated 12/26/23 @ 18:36 by Sabina Colindres MD) Cardiomyopathy Vertigo Stroke Cerebral infarction Hyperlipidemia History of TIA (transient ischemic attack) (~2013) History of cardiac arrest (~2019) Cardiac defibrillator in place Nonischemic cardiomyopathy Atherosclerotic cardiovascular disease Hypertension Hypercholesterolemia Restrictive lung disease COPD (chronic obstructive pulmonary disease) Cigarette nicotine dependence Nicotine dependence, cigarettes, uncomplicated Uncomplicated opioid dependence Chronic pain syndrome Rotator cuff arthropathy of both shoulders MRSA infection Surgical History History of implantable cardiac defibrillator (ICD) History of cardiac cath S/P insertion of spinal cord stimulator History of back surgery History of fusion of cervical spine History of repair of left rotator cuff History of repair of right rotator cuff History of cholecystectomy History of colonoscopy Family History Mother Multiple sclerosis Father Diabetes Amputat leg, bilat-complicated Sister Lupus Social History Household Members: Family Housing: House Do you presently have visiting nurse or other home services: No Alcohol intake: never Patient Tobacco Use Status: Current everyday Tobacco user Tobacco use type: Cigarette Cigarettes Per Day: 2 Years Smoked: (onset 9yo, 1/2-3ppd x 42yrs, now <1/4ppd - 30+PYH) e-Cigarette/Vaping Use: Currently Using service: No Cognitive needs: No Hearing needs: No Vision needs: No Questionnaire Thrive Questionnaire Date Thrive assessed: 07/26/23 COLETTE-7 AMB Questionnaire COLETTE-7 Date COLETTE - 7 assessed: 06/17/23 Source: Developed by Drs. King Macias, Melissa Aguilar, Mohna Lovett and colleagues, with an educational cosmo from [employer]. Physical exam (Primary Care) Vital Signs: Last Vital Signs Pulse 108 H 12/26/23 14:54 BP 102/70 12/26/23 14:54 Pulse Ox 96 12/26/23 14:54 Oxygen Delivery Method Room Air 12/26/23 14:54 BMI result Body Mass Index 27.2 Tobacco/Smoking Status: Tobacco use Status Tobacco use date assessed 07/17/23 12/26/23 14:57 Patient Tobacco Use Status Current everyday Tobacco 12/26/23 14:57 Tobacco use type Cigarette 12/26/23 14:57 e-Cigarette/Vaping Use Currently Using 12/26/23 14:57 Thrive Assessment: Date of Thrive Assessment Date Thrive assessed 07/26/23 12/26/23 14:57 Const General: alert; No acute distress Eyes Conjunctivae: conjunctivae normal Resp Auscultation: clear to auscultation bilaterally Cardio Rate: regular rate Rhythm: regular rhythm GI Inspection: Yes normal to inspection Extrem General: Yes normal to inspection and No edema Office Procedures Flu Questionnaire Does the patient have a severe egg allergy?: No Immunizations Fluarix Triv [id number] (PF) 45 mcg (15 mcg x 3)/0.5 mL IM syringe Performing Provider: Sabina Colindres MD [facility] [place] [facility] Documented (not given) by: CRISTOBAL Mora on 12/26/23 14:58 Reason Not Given: Received Previously Coding Level of Care Code Est Pt Level 4 (78806) Diagnoses Acute CVA (cerebrovascular accident) I63.[address] Z95.810 Nonischemic cardiomyopathy I42.8 Atherosclerotic cardiovascular disease I25.10 Primary hypertension I10 Hypertension type: primary hypertension Hypercholesterolemia E78.00 Pulmonary emphysema, unspecified emphysema type J43.9 COPD type: emphysema Emphysema type: unspecified Generalized anxiety disorder F41.1 Assessment & Plan Assessment & Plan (1) Acute CVA (cerebrovascular accident): Comment: 07/2023 T and K used Code(s): I63.9 - Cerebral infarction, unspecified Category: Medical Plan: Continue with anticoagulation, Control the cholesterol, weight, blood pressure, (2) Cardiac defibrillator in place: Comment: (s/p cardiac arrest 2019) Code(s): Z95.810 - Presence of automatic (implantable) cardiac defibrillator Category: Medical Plan: Patient continues to follow up with Cardiology (3) Nonischemic cardiomyopathy: Code(s): I42.8 - Other cardiomyopathies Category: Medical Plan: Patient is being followed up by Cardiology has been advised to place on lisinopril 2.5 mg once a day carvedilol 3.125 mg twice a day continue with anticoagulation (4) Atherosclerotic cardiovascular disease: Code(s): I25.10 - Atherosclerotic heart disease of [place] coronary artery without angina pectoris Category: Medical Plan: Control the cholesterol, weight, blood pressure, aspirin 81 mg once a day (5) Hypertension: Code(s): I10 - Essential (primary) hypertension Category: Medical Qualifiers: Hypertension type: primary hypertension Qualified Code(s): I10 - Essential (primary) hypertension Plan: Continue with blood pressure medication. Decrease salt intake and exercise on carvedilol 3.125 mg twice a day lisinopril 2.5 mg once a day (6) Hypercholesterolemia: Code(s): E78.00 - Pure hypercholesterolemia, unspecified Category: Medical Plan: Avoid fried foods, chicken skin, eggs, butter margarine, pastries and meat. Be it pork or beef they have a lot of cholesterol on atorvastatin 80 mg once a (7) COPD (chronic obstructive pulmonary disease): Comment: COPD secondary to ongoing smoking. However as per PFT, it is mild and his problem is mostly restrictive lung disease. Code(s): J44.9 - Chronic obstructive pulmonary disease, unspecified Category: Medical Qualifiers: COPD type: emphysema Emphysema type: unspecified Qualified Code(s): J43.9 - Emphysema, unspecified Plan: Continue with inhaler as needed (8) Generalized anxiety disorder: Code(s): F41.1 - Generalized anxiety disorder Category: Medical Plan: Start on medication lorazepam as needed. Side effects discussed and to be used as needed only Orders: Orders Comprehensive Met. Panel Today I63.9 - Cerebral infarction, unspecified Hemoglobin A1c Today I63.9 - Cerebral infarction, unspecified Magnesium Today I63.9 - Cerebral infarction, unspecified Phosphorus Today I63.9 - Cerebral infarction, unspecified Influenza [id number] Immunization Today Z23 - Encounter for immunization Complete Blood Count Auto Diff Today I63.9 - Cerebral infarction, unspecified Medications: New lorazepam 0.5 mg PO BEDTIME PRN 14 tabs 0RF anxiety 30 days F41.1 - Generalized anxiety disorder Refilled meclizine 25 mg PO TID 180 tabs 0RF R42 - Dizziness and giddiness
== END 2023-12-26 16:03 | disposition home or self-care (01) ==
PROVIDERS: Visit Provider Internal Medicine
DX: I42.8 Other cardiomyopathies (principal); J43.9 Emphysema, unspecified; Z86.73 Personal history of transient ischemic attack (TIA), and cerebral infarction without residual deficits; Z95.810 Presence of automatic (implantable) cardiac defibrillator; I25.10 Atherosclerotic heart disease of native coronary artery without angina pectoris; I10 Essential (primary) hypertension; E78.00 Pure hypercholesterolemia, unspecified; F41.1 Generalized anxiety disorder

== ENCOUNTER → 2024-01-06 23:59 | Outpatient (BNV) | payer MEDICARE, MEDICAID, SELFPAY ==
--- NOTE | 2024-01-13 19:03 | MHC.OFFVIS ---
Intake Visit Reasons: Remote ICD Check- MEDOP Allergies bupropion [From Wellbutrin] Allergy (Intermediate, Verified 08/29/23 08:08) Hives, Rage varenicline [From Chantix] Allergy (Intermediate, Verified 08/29/23 08:08) Agitation, Aggression codeine [Codeine] Allergy (Mild, Verified 08/29/23 08:08) HIVES/ITCHING methadone [Methadone] Allergy (Mild, Verified 08/29/23 08:08) HIVES/ITCHING barium sulfate Allergy (Unknown, Verified 08/29/23 08:08) Unknown Black Pepper-Turmeric Allergy (Unknown, Uncoded 08/12/23 12:47) Unknown [facility] Medical History (Updated 12/26/23 @ 18:36 by Sabina Colindres MD) Cardiomyopathy Vertigo Stroke Cerebral infarction Hyperlipidemia History of TIA (transient ischemic attack) (~2013) History of cardiac arrest (~2019) Cardiac defibrillator in place Nonischemic cardiomyopathy Atherosclerotic cardiovascular disease Hypertension Hypercholesterolemia Restrictive lung disease COPD (chronic obstructive pulmonary disease) Cigarette nicotine dependence Nicotine dependence, cigarettes, uncomplicated Uncomplicated opioid dependence Chronic pain syndrome Rotator cuff arthropathy of both shoulders MRSA infection Surgical History History of implantable cardiac defibrillator (ICD) History of cardiac cath S/P insertion of spinal cord stimulator History of back surgery History of fusion of cervical spine History of repair of left rotator cuff History of repair of right rotator cuff History of cholecystectomy History of colonoscopy Family History Mother Multiple sclerosis Father Diabetes Amputat leg, bilat-complicated Sister Lupus Social History Household Members: Family Housing: House Do you presently have visiting nurse or other home services: No Alcohol intake: never Patient Tobacco Use Status: Current everyday Tobacco user Tobacco use type: Cigarette Cigarettes Per Day: 2 Years Smoked: (onset 9yo, 1/2-3ppd x 40yrs, now <1/4ppd - 30+PYH) e-Cigarette/Vaping Use: Currently Using service: No Cognitive needs: No Hearing needs: No Vision needs: No Office Procedures Cardiac Device Check Cardiac Device Check Details: Date of service 01/06/2024; Battery life 12 years; normal lead parameters; no treated VT/VF; normal ICD function. [id number] Cardiac Interrogation, implant defibrillator w/interim Procedure code (CPT) selection complete Assessment & Plan Assessment & Plan (1) Cardiac defibrillator in place: Comment: (s/p cardiac arrest 2019) Code(s): Z95.810 - Presence of automatic (implantable) cardiac defibrillator Category: Medical (2) Nonischemic cardiomyopathy: Code(s): I42.8 - Other cardiomyopathies Category: Medical Plan x Coding Level of Care Code Procedure Only Diagnoses Cardiac defibrillator in place Z95.810 Nonischemic cardiomyopathy I42.8 CPT Codes Cardiac Device Check - Cardiac Device 13: [id number] Cardiac Interrogation, implant defibrillator w/interim ([id number])
== END ==
PROVIDERS: PCP Internal Medicine; Visit Provider Internal Medicine
DX: I42.8 Other cardiomyopathies (principal); Z95.810 Presence of automatic (implantable) cardiac defibrillator
CPT/HCPCS: 93295

== ENCOUNTER 2024-01-19 14:04 | Outpatient (AMB) | payer MEDICARE, MEDICAID, SELFPAY ==
--- NOTE | 2024-01-19 14:24 | MHC.OFFVIS ---
Vital Signs 01/19/24 14:25 Height 6 ft 2 in Weight 205 lb 0.478 oz BMI 26.3 BP 104/58 L Blood Pressure Location Lt brachial Position Sitting Pulse 88 Pulse Source Pulse Oximeter Intake Visit Reasons: 3 mth w/ [facility] Allergies bupropion [From Wellbutrin] Allergy (Intermediate, Verified 08/29/23 08:08) Hives, Rage varenicline [From Chantix] Allergy (Intermediate, Verified 08/29/23 08:08) Agitation, Aggression codeine [Codeine] Allergy (Mild, Verified 08/29/23 08:08) HIVES/ITCHING methadone [Methadone] Allergy (Mild, Verified 08/29/23 08:08) HIVES/ITCHING barium sulfate Allergy (Unknown, Verified 08/29/23 08:08) Unknown Black Pepper-Turmeric Allergy (Unknown, Uncoded 08/12/23 12:47) Unknown Medication List - Last Reconciled 01/19/24 by Gunnar Tate MD albuterol sulfate 90 mcg/actuation (Ventolin HFA) 2 puffs inhalation Q4-6H PRN apixaban (Eliquis) 5 mg PO BID 90 days aspirin (Adult Low Dose Aspirin) 81 mg PO DAILY atorvastatin 80 mg PO DAILY carvedilol 3.125 mg PO BID cholecalciferol (vitamin D3) 50 mcg PO DAILY duloxetine 30 mg PO DAILY lorazepam 0.5 mg PO BEDTIME PRN 30 days meclizine 25 mg PO TID nitroglycerin 0.4 mg sublingual Q5M PRN tamsulosin 0.4 mg PO BEDTIME HPI Comments Details: Daniel returns for follow-up. He carries a diagnosis of nonischemic cardiomyopathy. He was maintained on Coreg and lisinopril. Then he went to retirement. While in retirement he had a cardiac arrest-2019. Described as VT/VF. Then it seems that he was diagnosed with STEMI and underwent cardiac catheterization but there was no culprit lesion. Had ICD placed. In 07/2023, he was admitted for left-sided numbness/weakness. He was treated as acute stroke. He underwent thrombolytic treatment and after that, it seems his symptoms resolved completely. Then Eliquis was added to aspirin. Then discharged home. These days, his main issue is rather low blood pressure problems. He feels constantly tired, sleepy, weak, dizzy among others. He has already been off lisinopril and spironolactone but blood pressure is still on the lowish side. When he wakes up after sleeping supine, sometimes he feels as though his face is swollen up. But no clear leg swelling. [facility] Medical History (Updated 01/19/24 @ 15:15 by Gunnar Tate MD) Cardiomyopathy Vertigo Stroke Cerebral infarction Hyperlipidemia History of TIA (transient ischemic attack) (~2013) History of cardiac arrest (~2019) Cardiac defibrillator in place Nonischemic cardiomyopathy Atherosclerotic cardiovascular disease Hypertension Hypercholesterolemia Restrictive lung disease COPD (chronic obstructive pulmonary disease) Cigarette nicotine dependence Nicotine dependence, cigarettes, uncomplicated Uncomplicated opioid dependence Chronic pain syndrome Rotator cuff arthropathy of both shoulders MRSA infection Surgical History History of implantable cardiac defibrillator (ICD) History of cardiac cath S/P insertion of spinal cord stimulator History of back surgery History of fusion of cervical spine History of repair of left rotator cuff History of repair of right rotator cuff History of cholecystectomy History of colonoscopy Family History Mother Multiple sclerosis Father Diabetes Amputat leg, bilat-complicated Sister Lupus Social History Household Members: Family Housing: House Do you presently have visiting nurse or other home services: No Alcohol intake: never Patient Tobacco Use Status: Current everyday Tobacco user Tobacco use type: Cigarette Cigarettes Per Day: 2 Years Smoked: (onset 9yo, 1/2-3ppd x 42yrs, now <1/4ppd - 30+PYH) e-Cigarette/Vaping Use: Currently Using service: No Cognitive needs: No Hearing needs: No Vision needs: No Review of Systems Const Denies weakness ENT Denies dizziness Card Denies chest pain, Denies chest pain with activity, Denies syncope, Denies rapid heart rate, Denies pedal edema, Denies edema, Denies leg edema, Reports lightheadedness, Denies palpitations, Reports dyspnea, Denies dyspnea on exertion and Denies orthopnea Resp Denies cough, Reports dyspnea and Denies dyspnea on exertion GI Denies hematochezia and Denies change in stool character Musc Denies abnormal gait, Denies muscle cramps, Denies muscle weakness, Denies numbness, Denies radiating pain into limb and Denies tingling Neuro Denies abnormal gait, Denies dizziness, Denies syncope, Denies numbness, Denies tingling and Denies weakness Endo Denies palpitations Physical Exam Vital Signs: Last Vital Signs Pulse 88 01/19/24 14:25 BP 104/58 L 01/19/24 14:25 BMI result Body Mass Index 26.3 Const General: comfortable and no acute distress Orientation/consciousness: patient oriented x3 HEENT Other: Unremarkable Head: Yes normal to inspection Neck Neck: Yes normal visual inspection Chest Chest palpation & inspection: normal inspection of the chest Resp Auscultation: clear to auscultation bilaterally Cardio Palpation: normal PMI Heart sounds: S1 normal heart sound present, S2 normal heart sound present, no gallops, no murmurs and no rubs GI Palpation (GI): Soft to palpation Back/Spine/Pelvis Other: unremarkable Skin General skin exam: no rashes or lesions noted Neuro General: patient oriented x3 Extrem General: Yes normal to inspection Psych Mental Status: mental status grossly normal Office Procedures Cardiac Device Check Cardiac Device Check Details: ICD interrogated today. Battery status 12 years. Programmed VVI. Normal lead parameters. Monitored nonsustained V events, but brief. No shocks delivered. Overall, normal device function. [id number] Cardiac Device Check, single lead implantable defibrillator Procedure code (CPT) selection complete Assessment & Plan Assessment & Plan (1) Nonischemic cardiomyopathy: Code(s): I42.8 - Other cardiomyopathies Category: Medical Plan: In the last echocardiogram from 07/2023, LVEF is 30-35%. Wall motion abnormalities noted in the anterior wall and apex. No thrombus. Variable LVEF in the past including 35-40%, 50-20% at different times. Myocardial perfusion imaging study from 07/2023 shows no ischemia. Fixed defects of the apex, septum, inferior wall, suggesting scar or cardiomyopathy process. Cardiac catheterization from 2021- normal left main; LAD 40-50% ostial stenosis; RCA 30-40% stenosis in the proximal part of PLV; otherwise unremarkable. His main issue is rather low blood pressure. He is already off lisinopril/spironolactone. Stop the Coreg as well. Unfortunately, cannot use guideline based medical therapy. (2) Atherosclerotic cardiovascular disease: Code(s): I25.10 - Atherosclerotic heart disease of [place] coronary artery without angina pectoris Category: Medical Plan: Clinically no angina. Continue aspirin and statins. Last LDL 67 mg/dL. (3) Cardioembolic stroke: Code(s): I63.9 - Cerebral infarction, unspecified Category: Medical Plan: On Eliquis. May hold off aspirin. (4) Arterial hypotension: Code(s): I95.9 - Hypotension, unspecified Category: Medical Plan: Of Coreg, lisinopril, spironolactone. Also try to use Flomax intermittently and see if that helps. If still feels the same, then start midodrine. Plan Discussed with daughter who came for appointment. Orders: Orders CA echo transthoracic complete 3 Months I42.8 - Other cardiomyopathies Medications: Discontinued carvedilol must administer with a meal/food Discontinued Reason: Doctor's Order 3.125 mg PO BID 180 tabs 3RF meclizine Discontinued Reason: Doctor's Order 25 mg PO TID 180 tabs 0RF R42 - Dizziness and giddiness Coding Level of Care Code Est Pt Level 4 (54751) Diagnoses Nonischemic cardiomyopathy I42.8 Atherosclerotic cardiovascular disease I25.10 Cardioembolic stroke I63.9 Arterial hypotension I95.9 CPT Codes Cardiac Device Check - Cardiac Device 4: [id number] Cardiac Device Check, single lead implantable defibrillator ([id number])
[2024-01-19 14:25] VITALS: BP 104/58; PULSE 88; BMI 26.3
== END 2024-01-19 14:49 | disposition home or self-care (01) ==
PROVIDERS: PCP Internal Medicine; Visit Provider Internal Medicine
DX: I42.8 Other cardiomyopathies (principal); I25.10 Atherosclerotic heart disease of native coronary artery without angina pectoris; I63.9 Cerebral infarction, unspecified; I95.9 Hypotension, unspecified
CPT/HCPCS: 93282; 99214

== ENCOUNTER → 2024-01-19 14:04 | Outpatient (BNVA) | payer MEDICARE, MEDICAID, SELFPAY | PROVIDERS: Visit Provider Internal Medicine | DX: Z45.02 Encounter for adjustment and management of automatic implantable cardiac defibrillator (principal); I42.8 Other cardiomyopathies; I25.10 Atherosclerotic heart disease of native coronary artery without angina pectoris; I95.9 Hypotension, unspecified; Z79.4 Long term (current) use of insulin; Z79.82 Long term (current) use of aspirin; Z86.73 Personal history of transient ischemic attack (TIA), and cerebral infarction without residual deficits | CPT/HCPCS: 99212 ==

== ENCOUNTER 2024-02-23 14:49 | Inpatient (IN) | payer MEDICARE, SELFPAY ==
[2024-02-23] VITALS (10 sets, daily range): BP systolic 101–121; BP diastolic 56–86; PULSE 76–112; RESP 12–25; TEMP 36.1–36.7; O2SAT 94–98; BMI 28.2; BMI 28.1
--- NOTE | ~2024-02-23 | CT_ITS ---
EXAMINATION: CT ANGIOGRAM OF THE CHEST WITH AND WITHOUT CONTRAST (CT PULMONARY ANGIOGRAM FOR PE) CLINICAL INFORMATION: dyspnea, chest pain r/o PE, PNA, lung mass COMPARISON: No pertinent prior studies are available for comparison. TECHNIQUE: Prior to contrast administration, noncontrast localization images were obtained. Subsequently, multidetector volumetric imaging was performed from the thoracic inlet to the pubic symphysis through the chest, abdomen, and pelvis following the administration of 65 mL Omnipaque 350 intravenous contrast. No contrast reaction reported Sagittal, coronal, and MIP oblique sagittal (through the chest only) reformatted images were obtained on the CT workstation, uploaded to PACS, and reviewed. This CT examination was performed using dose optimization techniques as appropriate, variously including the following: *Automated exposure control *Adjustment of mA and/or kV according to patient size (this includes techniques or standardized protocols for targeted exams where dose is matched to indication/reason for exam; i.e. extremities or head) *Use of iterative reconstruction technique Total exam dose-length product: 154 mGy-cm FINDINGS: QUALITY OF STUDY/CONTRAST BOLUS: The bolus is excellent. There is respiratory artifact interfering with detail especially at the lung bases PULMONARY ARTERIES: No central or segmental pulmonary emboli. CORONARY ARTERY CALCIUM: Present THORACIC AORTA: No aneurysm or dissection. LUNG: There is emphysema and moderate diffuse bronchial thickening. No focal consolidation, nodules or masses. PLEURA: No pleural effusion or pneumothorax. MEDIASTINUM: Normal heart size. No pericardial effusion. No hilar or mediastinal lymphadenopathy. No evidence of septal bowing or right heart strain. CHEST WALL/AXILLA: No axillary or internal mammary lymphadenopathy. A left chest wall single-lead pacer/defibrillator is present. ACDF hardware is seen. OSSEOUS STRUCTURES: No acute or suspicious osseous abnormality. VISUALIZED ABDOMEN: No significant findings in the upper abdomen. CT/CT angio chest PE protocol IMPRESSION: 1. No evidence of pulmonary emboli. 2. Emphysema and bronchial thickening. VTE: negative. Fleischner guidelines were followed. Electronically signed by: Rick Ronquillo MD 02/24/2024 05:10 PM [facility] [place]
--- NOTE | ~2024-02-23 | XR_ITS ---
EXAMINATION: XR CHEST CLINICAL INFORMATION: Chest pain COMPARISON: 04/08/2022 TECHNIQUE: Frontal view of the chest was obtained. FINDINGS: No focal consolidation, pulmonary edema, or pleural effusion. Stable cardiomediastinal silhouette. Solitary electrode cardiac pacer. XR/XR chest 1V IMPRESSION: No acute cardiopulmonary findings. Electronically signed by: Abner Gonzales MD 02/23/2024 06:46 PM [facility]
--- NOTE | 2024-02-23 14:59 | ECG_ITS ---
Test Reason : CHEST PAIN Blood Pressure : / mmHG Vent. Rate : 077 BPM Atrial Rate : 077 BPM P-R Int : 156 ms QRS Dur : 102 ms QT Int : 408 ms P-R-T Axes : 050 -55 053 degrees QTc Int : 461 ms Normal sinus rhythm Left anterior fascicular block Septal infarct (cited on or before 25-JUL-2023) Abnormal ECG When compared with ECG of 23-FEB-2024 15:02, Aberrant conduction is no longer Present Referred By: Mary Patel Electronically Signed By:Jcarlos Patterson
--- NOTE | 2024-02-23 14:59 | ECG_ITS ---
Test Reason : CP Blood Pressure : / mmHG Vent. Rate : 094 BPM Atrial Rate : 094 BPM P-R Int : 132 ms QRS Dur : 086 ms QT Int : 370 ms P-R-T Axes : 052 -57 030 degrees QTc Int : 462 ms Sinus rhythm with PVCs Left axis deviation Septal infarct (cited on or before 25-JUL-2023) Abnormal ECG When compared with ECG of 25-JUL-2023 09:15, PVCs present Referred By: George Owens Electronically Signed By:Jcarlos Patterson
--- NOTE | 2024-02-23 15:00 | PC.NURSE ---
patient presented to the ED via EMS. patient states that yesterday he was electrocuted by a hot water heater, patient denied LOC, does have small lac on right arm where he says he was electrocuted. patient states that he when woke up today he had intermittent sharp chest pain, sob, dizziness and his face was swollen. patient presents to the ED grabbing chest, tachycardic, tachypneic. has 18# G in the LAC placed by ems.
--- NOTE | 2024-02-23 15:01 | ED_ITS ---
HPI - Chest Pain General Chief Complaint: Chest Pain Stated Complaint: CP, DIFF BREATHING PER EMS Time Seen by Provider: 02/23/24 14:59 Source: patient, EMS and old records reviewed Mode of arrival: EMS Limitations: no limitations History of Present Illness ED Provider: DR. Owens HPI narrative: A 53-year-old male with PMH of COPD, nonischemic cardiomyopathy, CAD with PA 4 years ago, cardiac arrest, AICD implantation, TIA, CVA, anxiety. Started this morning of feeling dizzy and almost passing out, patient had 2 lay against the wall to prevent falling and syncope, then 30 minutes ago started to have severe mid chest pain that has been constant since then, patient is on Eliquis. Patient was given 2 nitro at home with partial relief of his chest pain, the patient was given 4 baby aspirin by EMS. Pain is still constant in the mid chest with no radiation, associated with shortness of breath. Patient stated that yesterday he was working at home when he got electrocuted in his mid right forearm lasted for about 3-4 seconds patient has no symptoms then and did not seek medical attention. Related Data Home Medications ?Medication ?Instructions ?Recorded ?Confirmed nitroglycerin 0.4 mg sublingual 0.4 mg sublingual Q5M PRN Chest 03/18/22 01/19/24 tablet Pain Previous Rx's ?Medication ?Instructions ?Recorded atorvastatin 80 mg tablet 80 mg PO DAILY #30 tabs 05/27/23 apixaban 5 mg tablet (Eliquis) 5 mg PO BID 90 days #180 tabs 08/28/23 cholecalciferol (vitamin D3) 50 50 mcg PO DAILY #90 tabs 09/01/23 mcg (2,000 unit) tablet albuterol sulfate 90 mcg/actuation 2 puff inhalation Q4-6H PRN 10/11/23 aerosol inhaler (Ventolin HFA) Wheezing #8.5 grams tamsulosin 0.4 mg capsule 0.4 mg PO BEDTIME #90 caps 10/26/23 duloxetine 30 mg capsule,delayed 30 mg PO DAILY #90 caps 01/19/24 release azithromycin 250 mg tablet See Rx Instructions PO .COMPLEX #6 02/10/24 tabs prednisone 20 mg tablet 20 mg PO BID ASTHMA EXCERBATION 5 02/10/24 days #10 tabs lorazepam 0.5 mg tablet 0.5 mg PO BEDTIME PRN anxiety 30 02/23/24 days #14 tabs Allergies Allergy/AdvReac Type Severity Reaction Status Date / Time bupropion [From Wellbutrin] Allergy Intermediate Hives, Rage Verified 02/23/24 15:04 varenicline [From Chantix] Allergy Intermediate Agitation, Verified 02/23/24 15:04 Aggression codeine [Codeine] Allergy Mild HIVES/ITCHI Verified 02/23/24 15:04 NG methadone [Methadone] Allergy Mild HIVES/ITCHI Verified 02/23/24 15:04 NG barium sulfate Allergy Unknown Unknown Verified 02/23/24 15:04 Black Pepper-Turmeric Allergy Unknown Unknown Uncoded 02/23/24 15:04 Review of Systems 2 Review of Systems: All other systems are reviewed and are negative Constitutional: Reports as per HPI and Reports no additional constitutional complaints Eyes: Reports as per HPI and Reports no additional eye complaints Reports system reviewed and no additional complaints, except as documented Cardiovascular: Reports as per HPI and Reports no additional cardiovascular complaints Respiratory: Reports as per HPI and Reports no additional respiratory complaints Gastrointestinal: Reports as per HPI and Reports no additional gastrointestinal complaints Genitourinary: Reports no additional female genitourinary complaints Musculoskeletal: Reports no additional musculoskeletal complaints Skin/Breast: Reports system reviewed and no additional complaints, except as docu Psychiatric: Reports no additional psychiatric complaints Endocrine: Reports no additional endocrine complaints Hematologic/Lymphatic: Reports no additional hematologic/lymphatic complaints Allergic/Immunologic: Reports no additional allergic/immunologic complaints Reports system reviewed and no additional complaints, except as documented and Reports Abnormal speech present [facility] Past Medical History Medical History Cardiomyopathy Vertigo Stroke Cerebral infarction Hyperlipidemia History of TIA (transient ischemic attack) (~2013) History of cardiac arrest (~2019) Cardiac defibrillator in place Nonischemic cardiomyopathy Atherosclerotic cardiovascular disease Hypertension Hypercholesterolemia Restrictive lung disease COPD (chronic obstructive pulmonary disease) Cigarette nicotine dependence Nicotine dependence, cigarettes, uncomplicated Uncomplicated opioid dependence Chronic pain syndrome Rotator cuff arthropathy of both shoulders MRSA infection Surgical History History of implantable cardiac defibrillator (ICD) History of cardiac cath S/P insertion of spinal cord stimulator History of back surgery History of fusion of cervical spine History of repair of left rotator cuff History of repair of right rotator cuff History of cholecystectomy History of colonoscopy Family History Family History Mother Multiple sclerosis Father Diabetes Amputat leg, bilat-complicated Sister Lupus Social History Social History Household Members: Family Housing: House Do you presently have visiting nurse or other home services: No Alcohol intake: never Patient Tobacco Use Status: Current everyday Tobacco user Tobacco use type: Cigarette Cigarettes Per Day: 2 Years Smoked: (onset 9yo, 1/2-3ppd x 42yrs, now <1/4ppd - 30+PYH) e-Cigarette/Vaping Use: Currently Using Advance Directives: No Advance Directives Information Provided: No service: No Cognitive needs: No Hearing needs: No Vision needs: No Physical Exam 2 Vital Signs: Vital Signs: Last Vital Signs Temp 97.8 F 02/23/24 18:00 Pulse 91 02/23/24 18:00 Resp 16 02/23/24 18:00 BP 109/72 02/23/24 18:00 Pulse Ox 96 02/23/24 18:00 O2 Del Method Room Air 02/23/24 18:00 BMI result Body Mass Index 28.2 Vital signs have been reviewed and appear to be correct. Blood pressure elevated. Heart rate normal. Respiratory rate normal. Temperature normal. Oxygen saturation normal. Appearance: Alert. Oriented X3. No acute distress. Head: Normal external exam. Normocephalic. Atraumatic. No Wong signs noted. No raccoon eyes noted Eyes: PERRLA. EOMI. Conjunctiva and sclera normal. Eyelids normal. ENT: TM's Normal. Pharynx normal. Uvula midline. Moist mucous membranes. No trismus noted. No drooling noted. No muffled voice noted. Neck: Normal inspection. Neck supple. FROM. No adenopathy. Thyroid Normal. No meningeal signs. No neck mass noted. CVS: Normal heart rate and rhythm. Heart sound normal. No murmurs noted. Pulses normal throughout. Respiratory: No respiratory distress. Painless inspiration. Breath sounds normal. No wheezes/rales/rhonchi noted. Chest nontender. No accessory muscle usage noted or decreased air movement noted. Abdomen: Soft and nontender. Bowel sounds normal in all 4 quadrants. No distention noted. No organomegaly noted. No visible injury noted. Back: No CVA tenderness. Full range of motion noted. Skin: Skin warm and dry. Normal skin color. Normal skin turgor. No rashes/lesions/lacerations noted. Extremities: No lower extremity edema. Extremities exhibit normal range of motion. Extremities nontender. Neuro: Oriented X 3. Cranial nerve exam: II-XII are grossly intact No motor deficit. No sensory deficit. Reflexes normal. Course Reevaluation(s) Reevaluation #1: Near syncope, chest pain. 1. EKG reveals no ST elevation PA with negative troponin x2. 2. Patient with history of pulmonary embolism his D-dimer is unremarkable at patient is on Eliquis. 3. Epigastric pain/lower chest pain in this high-risk patient and extensive past medical history I think component of his chest pain is related to a bad gastritis. Time: 20:04 Medications Administered Discontinued Medications Generic Name Dose Route Start Last Admin Trade Name Freq PRN Reason Stop Dose Admin Al Hydroxide/Mg Hydroxide 30 ml 02/23/24 15:55 02/23/24 16:15 Magnesium Hydrox/Alum Hydrox 30 Ml Oral.Susp PO 02/23/24 15:56 30 ml ONCE ONE Administration Famotidine 20 mg 02/23/24 15:55 02/23/24 16:15 Famotidine/Pf 20 Mg/2 Ml Vial IVPUSH 02/23/24 15:56 20 mg ONCE ONE Administration Hydromorphone HCl 1 mg 02/23/24 17:44 02/23/24 18:06 Hydromorphone Hcl 1 Mg/Ml Syringe IVPUSH 02/23/24 17:45 1 mg ONCE ONE Administration Protocol Sodium Chloride 1,000 mls @ 999 mls/hr 02/23/24 15:15 02/23/24 16:39 Ns IV 02/23/24 16:15 Infused .Q1H1M ONE Infusion Morphine Sulfate 2 mg 02/23/24 15:14 02/23/24 15:21 Morphine Sulfate 2 Mg/Ml Cartridge IVPUSH 02/23/24 15:15 2 mg ONCE ONE Administration Protocol Morphine Sulfate 2 mg 02/23/24 15:55 02/23/24 16:15 Morphine Sulfate 2 Mg/Ml Cartridge IVPUSH 02/23/24 15:56 2 mg ONCE ONE Administration Protocol Nitroglycerin 0.5 inch 02/23/24 15:14 02/23/24 15:29 Nitroglycerin 2 % Oint 1 Gm Packet TRANSDERMA 02/23/24 15:15 0.5 inch ONCE ONE Administration Medical Decision Making Differential Diagnosis Differential Diagnoses: The differential diagnosis associated with the presentation includes (ACS, pulmonary embolism, pneumonia, pneumothorax, pleural effusion, gastritis, electrolyte derangement, severe anemia.) Admission/Observation Consideration of admission/observation: Escalation of care including admission/observation considered Consult Healthcare Provider Management of the patient was discussed with: Hospitalist (Dr. Martinez) Lab Data MDM Lab Attestation statement: I reviewed the patient's lab results. 02/23/24 15:17 02/23/24 15:17 Labs: Lab Results 02/23/24 02/23/24 Range/Units 15:17 18:13 WBC 12.0 H (4.8-10.8) X10*3/uL RBC 4.89 (4.60-5.80) X10*6/uL Hgb 15.1 (14.0-18.0) g/dl Hct 45.7 (42.0-52.0) % MCV 93.5 (80.0-98.0) fL MCH 30.9 (27.0-33.0) pg MCHC 33.0 (31.0-36.0) g/dl RDW 13.4 (11.0-16.0) % Plt Count 201 (160-400) X10*3/uL MPV 9.4 (9.4-12.4) fL Immature Gran % (Auto) 0.7 H (0.0-0.4) % Neut % (Auto) 56.8 (45-73) % Lymph % (Auto) 31.6 (20-40) % Hendricks % (Auto) 8.2 (2-11) % Eos % (Auto) 2.0 (0-4) % Baso % (Auto) 0.7 (0-2) % Lymph # (Auto) 3.8 (1.2-4.9) X10*3/uL Hendricks # (Auto) 1.0 (0.1-1.2) X10*3/uL Eos # (Auto) 0.2 (0.0-0.4) X10*3/uL Baso # (Auto) 0.1 (0.0-0.2) X10*3/uL Abs Immat Gran (auto) 0.08 H (0.00-0.03) X10*3/uL Absolute Neuts (auto) 6.8 (2.0-8.3) x10*3/uL Absolute Nucleated RBC 0.000 (0.0-0.012) X10*3/uL Nucleated RBC % (auto) 0.0 (0.0-0.2) /100WBC D-Dimer High Sensitivty < 150 NG/ML Sodium 137 (135-145) mmol/L Potassium 4.8 (3.3-5.1) mmol/L Chloride 110 H (96-108) mmol/L Carbon Dioxide 18 L (22-29) mmol/L Anion Gap 14 (12-20) BUN 14 (9-16) mg/dL Creatinine 0.71 (0.5-1.4) mg/dL Estim Creat Clear Calc 148.1 Estimated GFR > 60 Random Glucose 95 (60-115) mg/dL Calcium 8.9 D (8.4-10.2) mg/dL Total Bilirubin 0.8 (0.0-1.0) mg/dL Direct Bilirubin 0.1 (0.0-0.5) mg/dL AST 19 (5-37) U/L ALT 22 (0-40) U/L Alkaline Phosphatase 61 (39-117) U/L Troponin I High Sens 6.2 D 5.3 (<3.5-35.0) ng/L Total Protein 6.5 (6.5-8.0) g/dL Albumin 3.7 (3.5-5.0) g/dL Lipase 13 (8-78) U/L Influenza Type A (PCR) NEGATIVE (Negative) Influenza Type B (PCR) NEGATIVE (Negative) RSV RNA Qual (PCR) NEGATIVE (Negative) SARS-CoV-2 RNA (RT-PCR) NEGATIVE (Negative) Independent Interpretation I performed an independent interpretation of an: Plain X-Ray (No acute cardiopulmonary findings.) Radiology Impression Discussion of test interpretation with radiology: I have reviewed the radiologist's reading. Discharge Plan Discharge Clinical Impression: Near syncope, Chest pain, Gastritis Patient Disposition: Admitted As Inpatient Prescriptions: No Action atorvastatin 80 mg tablet 80 mg PO DAILY Qty: 30 11RF Eliquis 5 mg tablet 5 mg PO BID 90 Days Qty: 180 1RF cholecalciferol (vitamin D3) 50 mcg (2,000 unit) tablet 50 mcg PO DAILY Qty: 90 3RF albuterol sulfate [Ventolin HFA] 90 mcg/actuation HFA aerosol inhaler 2 puff inhalation Q4-6H PRN (Reason: Wheezing) Qty: 8.5 0RF tamsulosin 0.4 mg capsule 0.4 mg PO BEDTIME Qty: 90 3RF duloxetine 30 mg capsule,delayed release(DR/EC) 30 mg PO DAILY Qty: 90 1RF prednisone 20 mg tablet 20 mg PO BID 5 Days Qty: 10 0RF azithromycin 250 mg tablet See Rx Instructions PO .COMPLEX Qty: 6 0RF Rx Instructions: For 250 mg dose pack: take 500 mg today (day 1), then 250 mg for 4 days (days 2-5) PO lorazepam 0.5 mg tablet 0.5 mg PO BEDTIME PRN (Reason: anxiety) 30 Days Qty: 14 0RF nitroglycerin 0.4 mg tablet, sublingual 0.4 mg sublingual Q5M PRN (Reason: Chest Pain) Rx Instructions: do not exceed 3 doses per episode Print Language: Georgian
[2024-02-23] MEDS: 0.9 % Sodium Chloride 1,000 ML 999 ML IV (15:21)
[2024-02-23] MEDS: Morphine Sulfate 2 MG/ML CARTRIDGE IVPUSH ×2 (15:21→16:15)
[2024-02-23 15:22] LABS: MANUAL DIFF FLAG NO
[2024-02-23] MEDS: Nitroglycerin 2 % Oint 1 GM Packet 0.5 INCH TRANSDERMA (15:29)
[2024-02-23 15:41] LABS: Basophils Absolute Auto 0.1 X10*3/uL (0.0-0.2); Basophils Percent Auto 0.7 % (0-2); D Dimer High Sensitivity < 150 NG/ML; Eosinophils Absolute Auto 0.2 X10*3/uL (0.0-0.4); Hematocrit 45.7 % (42.0-52.0); Hemoglobin 15.1 g/dl (14.0-18.0); Imm Gran Abs Auto 0.08 X10*3/uL (0.00-0.03); Imm Gran Pct Auto 0.7 % (0.0-0.4); Lymphocytes Absolute Auto 3.8 X10*3/uL (1.2-4.9); Lymphocytes Percent Auto 31.6 % (20-40); Mean Corpuscular Hemoglobin 30.9 pg (27.0-33.0); Mean Corpuscular Volume 93.5 fL (80.0-98.0); Mean Platelet Volume 9.4 fL (9.4-12.4); Monocytes Percent Auto 8.2 % (2-11); Neutrophils Absolute Auto 6.8 x10*3/uL (2.0-8.3); Neutrophils Percent Auto 56.8 % (45-73); Platelet Count 201 X10*3/uL (160-400); Red Blood Count 4.89 X10*6/uL (4.60-5.80); Red Cell Distribution Width 13.4 % (11.0-16.0)
[2024-02-23 15:45] LABS: Troponin-I High Sensitivity 6.2 ng/L (<3.5-35.0)
[2024-02-23 15:49] LABS: Albumin Level 3.7 g/dL (3.5-5.0); Anion Gap 14 (12-20); Aspartate Amino Transferase 19 U/L (5-37); Bilirubin Direct 0.1 mg/dL (0.0-0.5); Bilirubin Total 0.8 mg/dL (0.0-1.0); Blood Urea Nitrogen 14 mg/dL (9-16); Calcium 8.9 mg/dL (8.4-10.2); Carbon Dioxide 18 mmol/L (22-29); Chloride 110 mmol/L (96-108); Creatinine Clr Calc Pharmacy 148.1; Estimated Glomerular Filt Rate > 60; Glucose Random 95 mg/dL (60-115); Lipase 13 U/L (8-78); Potassium 4.8 mmol/L (3.3-5.1); Sodium 137 mmol/L (135-145); Total Protein 6.5 g/dL (6.5-8.0)
[2024-02-23] MEDS: Famotidine/PF 20 MG/2 ML VIAL IVPUSH (16:15)
[2024-02-23] MEDS: Magnesium Hydrox/Alum Hydrox 30 ML ORAL.SUSP PO (16:15)
--- NOTE | 2024-02-23 16:23 | PC.NURSE ---
pt medicated for pain per order
[2024-02-23 16:45] LABS: Influenza A PCR NEGATIVE (Negative); Influenza B PCR NEGATIVE (Negative); Resp Syncy Virus RNA Qual PCR NEGATIVE (Negative); SARS COV2 PCR INHOUSE NEGATIVE (Negative)
--- NOTE | 2024-02-23 16:49 | PC.NURSE ---
patient family at bedside for support, awaiting CXR results, patient maintains normal sinus rhythm on tele monitor. patient describes pain at 5/10. patient resp even and unlabored, skin noted to be dry and intact
[2024-02-23 17:27] LABS: Alanine Aminotransferase 22 U/L (0-40); Alkaline Phosphatase 61 U/L (39-117)
[2024-02-23] MEDS: HYDROmorphone HCl 1 MG/ML SYRINGE IVPUSH (18:06)
[2024-02-23 19:32] LABS: Troponin-I High Sensitivity 5.3 ng/L (<3.5-35.0)
--- NOTE | 2024-02-23 19:59 | PM.IMHP ---
History of Present Illness Date of Service: 02/23/24 Pt is a 53-year-old male with a PMH significant for?nonischemic cardiomyopathy, CAD with GA, CM and arrytmia in 2019 s/p ICD last ingerogated about 1 month ago, , hx of TIA, HTN, HLD, multiple back and neck surgeries and anxiety who presents with chest pain, dizziness sob since around 2:30 pm, pain is crushing and severe, mostly constant, took 2 nitros at home without relieve, additionally he has been having dizziness and has felt like he was going to passed out. He relates that has been taking of all blood pressure medication d/t dizzness. 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 ECG shows no acue ischemic change, but a new aberant conduction. Troponin I 6.2, repeat 5.3 Review of Systems Review of Systems: chest pain, sob,dizziness--all other systems reviewed and are negative. [facility] Medical History Cardiomyopathy Vertigo Stroke Cerebral infarction Hyperlipidemia History of TIA (transient ischemic attack) (~2013) History of cardiac arrest (~2019) Cardiac defibrillator in place Nonischemic cardiomyopathy Atherosclerotic cardiovascular disease Hypertension Hypercholesterolemia Restrictive lung disease COPD (chronic obstructive pulmonary disease) Cigarette nicotine dependence Nicotine dependence, cigarettes, uncomplicated Uncomplicated opioid dependence Chronic pain syndrome Rotator cuff arthropathy of both shoulders MRSA infection Family History Mother Multiple sclerosis Father Diabetes Amputat leg, bilat-complicated Sister Lupus Surgical History History of implantable cardiac defibrillator (ICD) History of cardiac cath S/P insertion of spinal cord stimulator History of back surgery History of fusion of cervical spine History of repair of left rotator cuff History of repair of right rotator cuff History of cholecystectomy History of colonoscopy Social History Household Members: Family Housing: House Do you presently have visiting nurse or other home services: No Alcohol intake: never Patient Tobacco Use Status: Current everyday Tobacco user Tobacco use type: Cigarette Cigarettes Per Day: 2 Years Smoked: (onset 9yo, 1/2-3ppd x 42yrs, now <1/4ppd - 30+PYH) e-Cigarette/Vaping Use: Currently Using Advance Directives: No Advance Directives Information Provided: No service: No Cognitive needs: No Hearing needs: No Vision needs: No Meds Allergies Allergy/AdvReac Type Severity Reaction Status Date / Time bupropion [From Wellbutrin] Allergy Intermediate Hives, Rage Verified 02/23/24 15:04 varenicline [From Chantix] Allergy Intermediate Agitation, Verified 02/23/24 15:04 Aggression codeine [Codeine] Allergy Mild HIVES/ITCHI Verified 02/23/24 15:04 NG methadone [Methadone] Allergy Mild HIVES/ITCHI Verified 02/23/24 15:04 NG barium sulfate Allergy Unknown Unknown Verified 02/23/24 15:04 Black Pepper-Turmeric Allergy Unknown Unknown Uncoded 02/23/24 15:04 Home Medications ?Medication ?Instructions ?Recorded ?Confirmed ?Last Taken ?Type nitroglycerin 0.4 mg sublingual 0.4 mg sublingual Q5M PRN Chest 03/18/22 01/19/24 Unknown History tablet Pain Physical Exam Vital Signs and Narrative: Vital Signs: Last Vital Signs Temp 97.8 F 02/23/24 18:00 Pulse 91 02/23/24 18:00 Resp 16 02/23/24 18:00 BP 109/72 02/23/24 18:00 Pulse Ox 96 02/23/24 18:00 O2 Del Method Room Air 02/23/24 18:00 BMI result Body Mass Index 28.2 Const: Other: Constitutional: Alert, in no distress, overweight. Mental Status: Oriented to person, place and time. Eyes: Pupils are equal, round and reactive to light. Ear, Nose and Throat: Oropharynx clear, mucous membranes moist. Ears and nose without eformities. Trachea midline. Respiratory: Clear to auscultation. No wheezing, rales or rhonchi. Cardiovascular: S1 S2 regular. No murmurs, rubs or gallops. Gastrointestinal: Abdomen soft, non-tender, non-distended. Normal bowel sounds.? Neurologic: Cranial nerves II-XII grossly intact. No focal neurological deficits. Moves all extremities spontaneously.? Skin: No rashes or lesions.? Musculoskeletal: No cyanosis or clubbing. Psychiatric: Normal mood and affect? Results Labs 02/23/24 15:17 02/23/24 15:17 Labs: Laboratory Results - last 24 hr 02/23/24 02/23/24 15:17 18:13 MCV 93.5 MCH 30.9 MCHC 33.0 RDW 13.4 Plt Count 201 MPV 9.4 Immature Gran % (Auto) 0.7 H Neut % (Auto) 56.8 Lymph % (Auto) 31.6 [place] % (Auto) 8.2 Eos % (Auto) 2.0 Baso % (Auto) 0.7 Lymph # (Auto) 3.8 [place] # (Auto) 1.0 Eos # (Auto) 0.2 Baso # (Auto) 0.1 Abs Immat Gran (auto) 0.08 H Absolute Neuts (auto) 6.8 Absolute Nucleated RBC 0.000 Nucleated RBC % (auto) 0.0 D-Dimer High Sensitivty < 150 Anion Gap 14 Estim Creat Clear Calc 148.1 Estimated GFR > 60 Random Glucose 95 Calcium 8.9 D Total Bilirubin 0.8 Direct Bilirubin 0.1 AST 19 ALT 22 Alkaline Phosphatase 61 Troponin I High Sens 6.2 D 5.3 Total Protein 6.5 Albumin 3.7 Lipase 13 Influenza Type A (PCR) NEGATIVE Influenza Type B (PCR) NEGATIVE RSV RNA Qual (PCR) NEGATIVE SARS-CoV-2 RNA (RT-PCR) NEGATIVE Imaging Radiologist's Impressions: Impressions Chest X-Ray 02/23/24 15:55 IMPRESSION: No acute cardiopulmonary findings. Electronically signed by: Abner Gonzales MD 02/23/2024 06:46 PM [facility] [place] Assessment and Plan Plan 53-year-old male with a PMH significant for?nonischemic cardiomyopathy, CAD with GA, and arrytmia in 2019 s/p ICD last ingerogated about 1 month ago, , hx of TIA, HTN, HLD, multiple back and neck surgeries and anxiety who presents with chest pain, dizziness and sob since, no ischemic changes on ecg normal troponin i plan: Observe on tele cardiology consultation ECG in am echocardiogram (he is due for one on outpatient basis) will probably needs devise interogated pain meds HLD, statin Anxiety--Ativan PRN Quality VTE Prior VTE?: No VTE Risk Level:: Medical - moderate - high VTE Device Contraindication: Treatment Not Indicated VTE Drug Contraindication: N/A - Med Ordered
[2024-02-23] MEDS: Lactated Ringers 1,000 ML 100 ML IVCONT (20:46)
[2024-02-23] MEDS: HYDROmorphone HCl 0.5 MG/0.5 ML SYRINGE IVPUSH (20:53)
--- NOTE | 2024-02-23 21:07 | PC.NURSE ---
EMS #18 gauge IV removed d/t pain at site. no redness. new #20 to right forearm. medicated for sternal, sharp chest pain with prn dilaudid. pt states he has relief of pain. orthstatic vitals complete and charted. pt calm in bed, call hawkins in reach
[2024-02-23 21:51] LABS: Appearance Urine Clear; Color Urine Dark Yellow; Glucose Urine UA Negative (Negative); Leukocyte Esterase Urine Negative (Negative); Nitrite Urine Negative (Negative); Specific Gravity - Urine >= 1.030 (1.005-1.025); Urine Blood Negative (Negative); Urine Ketones Negative (Negative); Urine Protein Negative (Neg-Trace)
--- NOTE | 2024-02-23 22:23 | PHA.MEDREC ---
Addendum entered by Saul Kent RPh 02/23/24 22:26: Reviewed by [facility]. Original Note: Pharmacy Consult ? Medication Reconciliation Pharmacy has completed the medication reconciliation. Spoke to patient to confirm med list. Patient states he is no longer taking Carvedilol 3.25 mg, last filled 12/26/23 for 90 days, Meclizine 25 mg, last filled 12/29/23 for 60 days and Tamsulosin 0.4 mg, last filled 01/28/24 for 30 days.
--- NOTE | 2024-02-23 22:25 | PC.NURSE ---
pt transferred to inpatient [facility]. pt states needs are met at this time of transfer. belongings bag with list at bedside in 460.
[2024-02-23] MEDS: Apixaban 5 MG TABLET PO (23:22)
[2024-02-23 23:23] LABS: Amphetamine Screen Urine Not Detected (Not Detect); Barbiturates, Urine Not Detected (Not Detect); Benzodiazepines Screen Urine Not Detected (Not Detect); Buprenorphine Scr Not Detected (Not Detect); Cannabinoid Screen Urine Not Detected (Not Detect); Cocaine Screen Urine Not Detected (Not Detect); Fentanyl, urine Not Detected (Not Detect); Methadone Screen, Urine Not Detected (Not Detect); Opiate Screen Urine POSITIVE (Not Detect); Oxycodone Screen Urine Not Detected (Not Detect); Phencyclidine Screen Urine Not Detected (Not Detect)
[2024-02-23] MEDS: 0.9 % Sodium Chloride Flush 3 ML SYRINGE IVFLUSH (23:24)
[2024-02-24] VITALS (13 sets, daily range): BP systolic 90–137; BP diastolic 50–84; PULSE 83–106; RESP 16–20; TEMP 35.8–36.4; O2SAT 93–99
[2024-02-24] MEDS: HYDROmorphone HCl 0.5 MG/0.5 ML SYRINGE IVPUSH ×6 (01:04→21:22)
[2024-02-24] MEDS: Melatonin 3 MG TABLET 6 MG PO ×2 (01:07→21:21)
[2024-02-24] MEDS: LORazepam 0.5 MG TABLET PO ×2 (01:07→21:21)
--- NOTE | 2024-02-24 07:00 | CA_ITS ---
Transthoracic Echocardiogram Patient (Last, First, Middle): Daniel Agarwal A Gender: Male Date of : 1970 Age: 53 Procedure Date: 02/24/2024 Procedure Type: Transthoracic Echocardiogram [place] [facility] [place]: 187.96 cm Weight: 99.34 kg BSA: 2.26 m2 Heart Rate: 89 bpm BP: 126 / 78 mmHg Technical Solutions Director: JESSICA Referring MD: Servando Martinez MD Symptoms: chest pain, cardiomyopathy Study Quality: Fair, contrast ECG Rhythm: Sinus Findings Procedure Information Contrast agent, definity, is being given per protocol without apparent complications. Left Ventricle Mildly increased left ventricular cavity size. There is normal left ventricular wall thickness. The left ventricular systolic function is moderately decreased. The visually estimated ejection fraction is between 30 35%. There is evidence of regional wall motion abnormalities. There is moderate global hypokinesis. Abnormal diastolic function is noted. Spectral Doppler is indicative of an impaired relaxation filling pattern. Normal left ventricular filling pressures. Wall Motion Rest Echo Findings The apex segment is akinetic. Right Ventricle Normal right ventricular cavity size. There is low normal right ventricular systolic function. There is an ICD wire seen in the right ventricle. Atria The left atrium is normal in size. There is no evidence of interatrial shunt by agitated saline. The right atrium is normal in size. Aortic Valve Normal aortic valve structure and function. There is no aortic valve stenosis. There is mild aortic valve regurgitation. Mitral Valve The mitral valve appears normal. There is trace mitral valve regurgitation. There is no mitral valve stenosis. Pulmonic Valve The pulmonic valve is likely normal. Tricuspid Valve Normal tricuspid valve structure. There is no tricuspid valve regurgitation. Normal right atrial pressure. There is no evidence of pulmonary hypertension. Great Vessels All visible segments of the aorta are normal in size. Venous The inferior vena cava is normal in size and collapses greater than 50% with inspiration. Pericardium/Pleural Prominent epicardial adipose tissue noted. There is no evidence of pericardial effusion. Prior Study Comparison No significant change compared to prior study dated: 07/26/2023. Measurements 2D Linear Measurements IVSd: 0.70 0.6-0.9/0.6-1.0 cm LVIDd: 6.30 3.9-5.3/4.2-5.9 cm LVIDd Index: 2.79 2.4-3.2/2.2-3.1 cm/m2 LVIDs: 5.53 2.0-3.6 cm LVPWd: 0.64 0.7-1.1 cm LA Diam: 3.30 2.7-3.8/3.0-4.0 cm LAIDs Index: 1.46 1.5-2.3 cm/m2 LV Mass: 203.55 67-162/88-224 g LV Mass Index: 90.07 43-95/49-115 g/m2 LVOT Diam: 2.50 3.0+(-)1.3 cm 2D Systolic Function EF 4C: 48.60 >55% EF 2C: 56.50 >55% EF BiP: 54.10 >55% Mitral Valve MV Pk E: 0.49 MV PK A: 0.81 MV Decel Time: 168.00 E/A: 0.60 E'Lateral: 7.07 E'Medial: 5.87 E/E' Med: 8.30 E/E' Lat: 6.90 PHT: 49.00 MVA PHT: 4.49 Decel [place]: 2.90 Aortic Valve AoV Pk Prabhakar: 1.34 AoV Pk Grad: 7.00 SERGEI: 3.79 AI Pk Prabhakar: 3.66 AI [place]: 1.71 LVOT LVOT Pk Prabhakar: 0.91 LVOT Mn Prabhakar: 0.69 LVOT VTI: 0.19 LVOT Pk Grad: 3.00 LVOT Mn Grad: 2.00 LVOT Diam: 2.50 LVOT Area: 4.91 Diastolic Function MV Pk E: 0.49 MV Pk A: 0.81 E/A: 0.60 E'Medial: 5.87 E/E' Med: 8.30 E' Laterial: 7.07 E/E' Lat: 6.90 Right Ventricle TAPSE (mm): 15.80 TVS' Prabhakar: 10.30 Tricuspid Valve TR Pk Prabhakar: 2.20 TR Pk Grad: 19.00 RA Press: 3.00 RVSP: 22.00 Great Vessels Aorta Sinus of Valsalva: 3.10 2.0-3.5 cm Ao Asc: 3.50 2.1-3.4 cm Updated in Other Vendor System with Status of Final Jcarlos Patterson MD electronically signed on 02/24/2024 8:28:45 PM with status of Final
[2024-02-24 07:26] LABS: Anion Gap 10 (12-20); Blood Urea Nitrogen 18 mg/dL (9-16); Calcium 8.5 mg/dL (8.4-10.2); Carbon Dioxide 26 mmol/L (22-29); Chloride 106 mmol/L (96-108); Creatinine Clr Calc Pharmacy 134.8; Estimated Glomerular Filt Rate > 60; Glucose Random 85 mg/dL (60-115); Potassium 4.2 mmol/L (3.3-5.1); Sodium 138 mmol/L (135-145)
[2024-02-24] MEDS: Cholecalciferol (Vitamin D3) 25 MCG TABLET 50 MCG PO (07:48)
[2024-02-24] MEDS: Atorvastatin Calcium 80 MG TABLET PO (07:48)
[2024-02-24] MEDS: 0.9 % Sodium Chloride Flush 3 ML SYRINGE IVFLUSH ×3 (07:49→21:23)
[2024-02-24] MEDS: Apixaban 5 MG TABLET PO ×2 (07:49→21:21)
[2024-02-24 09:03] LABS: Troponin-I High Sensitivity 4.4 ng/L (<3.5-35.0)
--- NOTE | 2024-02-24 09:22 | MHC.CM.PN ---
CM ATTEMPTED TO MEET ITH PT HOWEVER PT HAVING ECHO, ALLIE TO REVISIT
[2024-02-24] MEDS: Nicotine 21 MG PATCH.TD24 TRANSDERMA (10:54)
[2024-02-24 10:56] LABS: Procalcitonin 0.02 ng/mL
--- NOTE | 2024-02-24 11:08 | P.PNIM_ITS ---
Subjective Subjective Date of Service: 02/24/24 Interval History: c/o 7/10 chest pain, dyspnea no wheezing or cough had external electric shock from water heater 2d ago Review of Systems Review of Systems: Yes all other systems are reviewed and are negative Physical Exam 2 Vital Signs: Vital Signs: Last Vital Signs Temp 96.5 F L 02/24/24 10:57 Pulse 83 02/24/24 10:57 Resp 20 02/24/24 10:57 BP 118/78 02/24/24 10:57 Pulse Ox 95 02/24/24 10:57 O2 Del Method Room Air 02/24/24 10:57 BMI result Body Mass Index 28.1 Gen: in no acute distress HEENT: sclera anicteric, moist mucus membranes Neck: supple Lungs: clear to auscultation bilaterally Heart: regular rate and rhythm, no murmurs Abd: soft, non-tender, non-distended Ext: no edema Skin: warm/well-perfused Neuro: alert and oriented x3, no focal findings Psych: appropriate affect Objective Data Active Medications Acetaminophen (Acetaminophen 325 Mg Tablet) 650 mg PO Q6H PRN PRN Reason: Pain, Mild 1-3,fever,headache Al Hydroxide/Mg Hydroxide (Magnesium Hydrox/Alum Hydrox 30 Ml Oral.Susp) 30 ml PO Q4H PRN PRN Reason: Heartburn Albuterol Sulfate (Albuterol Sulfate 90 Mcg 8 Gm Inhaler) 2 puff INHALE Q6H PRN PRN Reason: Wheezing Apixaban (Apixaban 5 Mg Tablet) 5 mg PO BID [facility] Last Admin: 02/24/24 07:49 Dose: 5 mg Documented By: MEL Atorvastatin Calcium (Atorvastatin Calcium 80 Mg Tablet) 80 mg PO DAILY [facility] Last Admin: 02/24/24 07:48 Dose: 80 mg Documented By: MEL Calcium Carbonate (Calcium Carbonate 750 Mg Tab.Chew) 750 mg PO Q4H PRN PRN Reason: Heartburn Duloxetine HCl (Duloxetine Hcl 30 Mg Capsule.Dr) 30 mg PO DAILY [facility] Last Admin: 02/24/24 07:51 Dose: Not Given Documented By: MEL Non-Admin Reason: Patient Refused Hydromorphone HCl (Hydromorphone Hcl 0.5 Mg/0.5 Ml Syringe) 0.5 mg IVPUSH Q4H PRN; Protocol PRN Reason: Pain, Severe (Pain Scale 7-10) Last Admin: 02/24/24 09:08 Dose: 0.5 mg Documented By: MEL Lorazepam (Lorazepam 0.5 Mg Tablet) 0.5 mg PO BEDTIME PRN PRN Reason: anxiety Last Admin: 02/24/24 01:07 Dose: 0.5 mg Documented By: SHIV Magnesium Hydroxide (Milk Of Magnesia 30 Ml Oral.Susp) 30 ml PO DAILY PRN PRN Reason: Constipation Melatonin (Melatonin 3 Mg Tablet) 6 mg PO BEDTIME PRN PRN Reason: Insomnia Last Admin: 02/24/24 01:07 Dose: 6 mg Documented By: SHIV Nicotine (Nicotine 21 Mg Patch.Td24) 21 mg TRANSDERMA DAILY [facility] Last Admin: 02/24/24 10:54 Dose: 21 mg Documented By: MEL Ondansetron HCl (Ondansetron Hcl 4 Mg/2 Ml Vial) 4 mg IVPUSH Q8H PRN PRN Reason: Nausea and Vomiting Sodium Chloride (0.9 % Sodium Chloride Flush 3 Ml Syringe) 3 ml IVFLUSH QSHIFT [facility] Last Admin: 02/24/24 07:49 Dose: 3 ml Documented By: MEL Vitamin D (Cholecalciferol (Vitamin D3) 25 Mcg Tablet) 50 mcg PO DAILY [facility] Last Admin: 02/24/24 07:48 Dose: 50 mcg Documented By: MEL Labs 02/23/24 15:17 02/24/24 06:29 Labs: Laboratory Results - last 24 hr 02/23/24 02/23/24 02/23/24 15:17 18:13 21:42 MCV 93.5 MCH 30.9 MCHC 33.0 RDW 13.4 Plt Count 201 MPV 9.4 Immature Gran % (Auto) 0.7 H Neut % (Auto) 56.8 Lymph % (Auto) 31.6 [place] % (Auto) 8.2 Eos % (Auto) 2.0 Baso % (Auto) 0.7 Lymph # (Auto) 3.8 [place] # (Auto) 1.0 Eos # (Auto) 0.2 Baso # (Auto) 0.1 Abs Immat Gran (auto) 0.08 H Absolute Neuts (auto) 6.8 Absolute Nucleated RBC 0.000 Nucleated RBC % (auto) 0.0 D-Dimer High Sensitivty < 150 Anion Gap 14 Estim Creat Clear Calc 148.1 Estimated GFR > 60 Random Glucose 95 Calcium 8.9 D Total Bilirubin 0.8 Direct Bilirubin 0.1 AST 19 ALT 22 Alkaline Phosphatase 61 Total Creatine Kinase Troponin I High Sens 6.2 D 5.3 Total Protein 6.5 Albumin 3.7 Lipase 13 Procalcitonin Urine Color Dark Yellow Urine Appearance Clear Urine pH 5.0 Ur Specific [employer] >= 1.030 H Urine Protein Negative Urine Glucose (UA) Negative Urine Ketones Negative Urine Blood Negative Urine Nitrite Negative Ur Leukocyte Esterase Negative Urine Opiates Screen POSITIVE H Ur Buprenorphine Scrn Not Detected Ur Oxycodone Screen Not Detected Urine Methadone Screen Not Detected Urine Fentanyl Screen Not Detected Ur Barbiturates Screen Not Detected Ur Phencyclidine Scrn Not Detected Ur Amphetamines Screen Not Detected U Benzodiazepines Scrn Not Detected Urine Cocaine Screen Not Detected U Marijuana (THC) Screen Not Detected Influenza Type A (PCR) NEGATIVE Influenza Type B (PCR) NEGATIVE RSV RNA Qual (PCR) NEGATIVE SARS-CoV-2 RNA (RT-PCR) NEGATIVE 02/24/24 02/24/24 06:29 08:38 MCV MCH MCHC RDW Plt Count MPV Immature Gran % (Auto) Neut % (Auto) Lymph % (Auto) [place] % (Auto) Eos % (Auto) Baso % (Auto) Lymph # (Auto) [place] # (Auto) Eos # (Auto) Baso # (Auto) Abs Immat Gran (auto) Absolute Neuts (auto) Absolute Nucleated RBC Nucleated RBC % (auto) D-Dimer High Sensitivty Anion Gap 10 L Estim Creat Clear Calc 134.8 Estimated GFR > 60 Random Glucose 85 Calcium 8.5 Total Bilirubin Direct Bilirubin AST ALT Alkaline Phosphatase Total Creatine Kinase 39 Troponin I High Sens 4.4 Total Protein Albumin Lipase Procalcitonin 0.02 Urine Color Urine Appearance Urine pH Ur Specific [employer] Urine Protein Urine Glucose (UA) Urine Ketones Urine Blood Urine Nitrite Ur Leukocyte Esterase Urine Opiates Screen Ur Buprenorphine Scrn Ur Oxycodone Screen Urine Methadone Screen Urine Fentanyl Screen Ur Barbiturates Screen Ur Phencyclidine Scrn Ur Amphetamines Screen U Benzodiazepines Scrn Urine Cocaine Screen U Marijuana (THC) Screen Influenza Type A (PCR) Influenza Type B (PCR) RSV RNA Qual (PCR) SARS-CoV-2 RNA (RT-PCR) Assessment and Plan (1) Chest pain: Status: Acute Assessment and Plan: d2 for 53yo with NICM with ICD, CAD, hx TIA now on apixaban, HTN, HLD, anxiety presenting with dyspnea, dizziness, and severe chest pressure after an electrocution event, initial EKG with aberrant conduction which has resolved; troponins normal chest pain after electrocution - ICD interrogation, Cardiology consultation, TTE, telemetry, prn hydromorphone dyspnea - unclear causea, will check CTA chest though notably on apixaban hx TIA - continue apixaban HLD - continue atorvastatin chronic pain - continue duloxetine tobacco abuse - NRT VTE ppx - apixaban dispo - eventual home In my clinical judgment, the patient requires continued inpatient hospitalization for the following reasons: ongoing chest pain + dyspnea Total time managing care of this patient today: 40 minutes. Quality Stroke Does the patient have a stroke diagnosis?: No VTE Prior VTE?: No VTE Risk Level:: Medical - moderate - high VTE Device Contraindication: Treatment Not Indicated VTE Drug Contraindication: N/A - Med Ordered
[2024-02-24 11:24] LABS: Hematocrit 41.3 % (42.0-52.0); Mean Corpuscular HGB Conc 33.9 g/dl (31.0-36.0); Mean Corpuscular Volume 91.4 fL (80.0-98.0); Mean Platelet Volume 9.4 fL (9.4-12.4); Platelet Count 176 X10*3/uL (160-400); Red Blood Count 4.52 X10*6/uL (4.60-5.80); Red Cell Distribution Width 13.5 % (11.0-16.0); White Blood Count 10.2 X10*3/uL (4.8-10.8)
[2024-02-24 11:53] LABS: Troponin-I High Sensitivity 3.5 ng/L (<3.5-35.0)
[2024-02-24] MEDS: iohexoL 350 MG/ML 100 ML INFUS..BTL IV (11:58)
--- NOTE | 2024-02-24 11:59 | MHC.CM.PN ---
SUZANNE 02/24/24, PT W/CHEST PAIN/SOB/DIZZINESS, CM MET W/PT WHO REPORTS HE LIVES W/ADULT DTR, IS INDEP W/CARE, DENIES USE OF DME/SERVICES AND GOAL FOR DC IS HOME ONCE MEDICALLY CLEARED. HCP/PCP ON FILE VERIFIED.
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
[2024-02-24] MEDS: Calcium Carbonate 750 MG TAB.CHEW PO (23:04)
[2024-02-25] VITALS (9 sets, daily range): BP systolic 115–140; BP diastolic 66–87; PULSE 64–107; RESP 16–20; TEMP 36.2–36.7; O2SAT 94–96
--- NOTE | 2024-02-25 | ECG_ITS ---
Test Reason : Dyspnea Blood Pressure : / mmHG Vent. Rate : 096 BPM Atrial Rate : 096 BPM P-R Int : 152 ms QRS Dur : 096 ms QT Int : 370 ms P-R-T Axes : 054 -57 039 degrees QTc Int : 467 ms Sinus rhythm with occasional Premature ventricular complexes Left anterior fascicular block Anteroseptal infarct (cited on or before 25-JUL-2023) Abnormal ECG When compared with ECG of 24-FEB-2024 08:05, Premature ventricular complexes are now Present Referred By: Jcarlos Patterson Electronically Signed By:Jcarlos Patterson
[2024-02-25] MEDS: HYDROmorphone HCl 0.5 MG/0.5 ML SYRINGE IVPUSH ×2 (01:26→06:44)
[2024-02-25] MEDS: Apixaban 5 MG TABLET PO (08:12)
[2024-02-25] MEDS: Nicotine 21 MG PATCH.TD24 TRANSDERMA (08:13)
[2024-02-25] MEDS: Atorvastatin Calcium 80 MG TABLET PO (08:13)
[2024-02-25] MEDS: Cholecalciferol (Vitamin D3) 25 MCG TABLET 50 MCG PO (08:13)
[2024-02-25] MEDS: oxyCODONE HCl Immed Release 5 MG TABLET PO ×3 (09:20→20:44)
[2024-02-25] MEDS: Lidocaine 4 % Patch ADH..PATCH 1 PATCH TRANSDERMA (09:21)
[2024-02-25] MEDS: Omeprazole 20 MG CAPSULE.DR PO (09:21)
--- NOTE | 2024-02-25 10:09 | PC.NURSE ---
informed md of pt's frequent PVCs and vent bigem
--- NOTE | 2024-02-25 11:54 | P.PNCA_ITS ---
Subjective Subjective Date of Service: 02/25/24 Interval history: Seen and examined at bedside. He is saying he is less dizzy. He is still SOB when he stands up. Persistent epigastric and lower chest pain. No biomarker rise. Physical Exam Vital Signs: Last Vital Signs Temp 97.9 F 02/25/24 11:37 Pulse 85 02/25/24 11:37 Resp 16 02/25/24 11:37 BP 121/71 02/25/24 11:37 Pulse Ox 95 02/25/24 11:37 O2 Del Method Room Air 02/25/24 11:37 BMI result Body Mass Index 28.1 GENERAL APPEARANCE: in no acute distress, pleasant. NECK: no carotid bruit, no jugular venous distention. SKIN: no suspicious lesions, warm and dry. HEART: no murmurs, regular rate and rhythm. LUNGS: clear to auscultation bilaterally. ABDOMEN: soft, nontender. EXTREMITIES: no edema. PERIPHERAL PULSES: equal. NEUROLOGIC: No gross deficits, AAO X 3 Objective Labs and Meds 02/24/24 11:17 02/24/24 06:29 Lab results: Laboratory Results - last 24 hr 02/23/24 16:35 B-Natriuretic Peptide Imaging Radiologist's impression: Impressions Chest CTA 02/24/24 11:42 IMPRESSION: 1. No evidence of pulmonary emboli. 2. Emphysema and bronchial thickening. VTE: negative. Fleischner guidelines were followed. Electronically signed by: Rick Ronquillo MD 02/24/2024 05:10 [place] [facility] [place]: A&P Assessment and plan (1) Near syncope: Status: Acute (2) Chest pain: Status: Acute (3) Orthostatic dizziness: Status: Acute Plan 53-year-old gentleman who is here for dizziness, SOB and CP. Clinically not in heart failure. Normal biomarkers. Check EKG. Unsure about etiology of his dyspnea. CTA did not show any PE. Gentle hydration and see if orthostasis improves. If it does not improve completely then would consider diagnostic cath. He had mild to moderate disease in the past. Hold eliquis and change to lovenox for now. We will follow along. Time Spent With Patient Time: Total time managing care of this patient today ____ minutes. Progress Note: Quality Stroke Does the patient have a stroke diagnosis?: No Procedures Date of Service Date of Service: 02/25/24
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
[2024-02-25] MEDS: 0.9 % Sodium Chloride 500 ML 125 ML IV (12:44)
[2024-02-25] MEDS: 0.9 % Sodium Chloride Flush 3 ML SYRINGE IVFLUSH (12:49)
[2024-02-25] MEDS: Albuterol Sulfate 90 MCG 8 GM INHALER 2 PUFF INHALE (12:53)
--- NOTE | 2024-02-25 13:05 | MHC.CM.PN ---
PER RN/UR/CM, Patient has changed from OBSERVATION to INPATIENT. CM addressed IMM verbally with Patient (he is on precautions) and has given him the original and a copy has been placed on the chart.
[2024-02-25] MEDS: Acetaminophen 325 MG TABLET 650 MG PO (16:04)
[2024-02-25] MEDS: DULoxetine HCl 30 MG CAPSULE.DR PO (20:43)
[2024-02-25] MEDS: Enoxaparin Sodium 100 MG/ML SYRINGE SUBCUT (20:45)
[2024-02-25] MEDS: Melatonin 3 MG TABLET 6 MG PO (23:06)
[2024-02-25] MEDS: LORazepam 0.5 MG TABLET PO (23:06)
[2024-02-26] MEDS: oxyCODONE HCl Immed Release 5 MG TABLET PO ×3 (00:38→08:42)
[2024-02-26 01:38] VITALS: PULSE 98; RESP 20
[2024-02-26 04:19] VITALS: BP 128/74; PULSE 88; RESP 16; TEMP 36.1; O2SAT 94
[2024-02-26] MEDS: Omeprazole 20 MG CAPSULE.DR PO (04:31)
[2024-02-26] MEDS: 0.9 % Sodium Chloride Flush 3 ML SYRINGE IVFLUSH ×3 (04:33→15:30)
[2024-02-26 05:31] VITALS: RESP 20
[2024-02-26 07:22] VITALS: BP 137/74; PULSE 75; RESP 18; TEMP 36.2; O2SAT 100
[2024-02-26] MEDS: Atorvastatin Calcium 80 MG TABLET PO (08:40)
[2024-02-26] MEDS: Enoxaparin Sodium 100 MG/ML SYRINGE SUBCUT (08:40)
[2024-02-26] MEDS: Cholecalciferol (Vitamin D3) 25 MCG TABLET 50 MCG PO (08:40)
[2024-02-26] MEDS: Nicotine 21 MG PATCH.TD24 TRANSDERMA (08:41)
--- NOTE | 2024-02-26 09:44 | P.PNCA_ITS ---
Subjective Subjective Date of Service: 02/26/24 Interval history: Seen and examined at bedside. Continues to have dyspnea with activities. Physical Exam Vital Signs: Last Vital Signs Temp 97.1 F 02/26/24 07:22 Pulse 75 02/26/24 07:22 Resp 18 02/26/24 07:22 BP 137/74 02/26/24 07:22 Pulse Ox 100 02/26/24 07:22 O2 Del Method Room Air 02/26/24 07:22 BMI result Body Mass Index 28.1 GENERAL APPEARANCE: in no acute distress, pleasant. NECK: no carotid bruit, no jugular venous distention. SKIN: no suspicious lesions, warm and dry. HEART: no murmurs, regular rate and rhythm. LUNGS: clear to auscultation bilaterally. ABDOMEN: soft, nontender. EXTREMITIES: no edema. PERIPHERAL PULSES: equal. NEUROLOGIC: No gross deficits, AAO X 3 Objective Labs and Meds 02/24/24 11:17 02/24/24 06:29 Lab results: Laboratory Results - last 24 hr 02/23/24 16:35 B-Natriuretic Peptide Progress Note: A&P Assessment and plan (1) Chest pain: Status: Acute (2) Shortness of breath: Status: Acute (3) Nonischemic cardiomyopathy: Status: Acute (4) Near syncope: Status: Acute (5) Orthostatic dizziness: Status: Acute Plan 53-year-old gentleman who is here for dizziness, SOB and CP. Clinically not in heart failure. Normal biomarkers. Repeat EKGs showing poor R- wave progression but no dynamic changes. Unsure about etiology of his dyspnea. CTA did not show any PE. He does not have any pneumonia or COPD exacerbation. Clinically not in heart failure. I have discussed with him for doing a left and right heart catheterization and he is agreeable. We will transferred to [facility] Diana is on hold and he is on Lovenox. He will get Lovenox dose tonight and will hold morning dose tomorrow. We will do the procedure tomorrow morning. We will follow along with you. Thank you for allowing me to participate in the care of your patient. Please feel free to contact me if you have any questions. Time Spent With Patient Time: Total time managing care of this patient today ____ minutes. Progress Note: Quality Stroke Does the patient have a stroke diagnosis?: No Procedures Date of Service Date of Service: 02/26/24
--- NOTE | 2024-02-26 10:41 | P.DS_ITS ---
DS: Providers Provider Date of Service: 02/26/24 Date of admission: 02/25/24 12:20 Date of discharge: 02/26/24 Primary care physician: Sabina Colindres MD Consults: 02/23/24 20:34 Consult to Cardiology Routine Consulting Provider: [facility] Reason for consultation: chest pain, dizziness, sob Has provider been notified: Yes DS: Diagnosis Discharge Diagnosis (1) Chest pain: Status: Acute (2) Shortness of breath: Status: Acute (3) Nonischemic cardiomyopathy: Status: Acute (4) Near syncope: Status: Acute (5) Orthostatic dizziness: Status: Acute DS: Summary Hospital Course Hospital Course: 53-year-old male with a PMH significant for?nonischemic cardiomyopathy, CAD with NC, CM and arrytmia in 2019 s/p ICD last ingerogated about 1 month ago, , hx of TIA, HTN, HLD, multiple back and neck surgeries and anxiety who presents with chest pain, dizziness sob since around 2:30 pm, pain is crushing and severe, mostly constant, took 2 nitros at home without relieve, additionally he has been having dizziness and has felt like he was going to passed out. He relates that has been taking of all blood pressure medication d/t dizzness. 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 ECG shows no acue ischemic change, but a new aberant conduction. Troponin I 6.2, repeat 5.3 Hospital Course Patient admitted to telemetry where monitor failed to demonstrate any acute dysrhythmias. Seen in consultation by Cardiology who reviewed EKGs; decision was made after 24 hours given persistent symptoms the patient should be transfer to [facility] for diagnostic cardiac catheterization. Dr. Patterson has made arrangements and patient will be transferred for diagnostic catheterization Time Attestation Discharge Coordination Time (in mins): 35 Quality: Safe Use of Opioids Does Pt have an Active Cancer Diagnosis on the Problem List?: No Quality: Stroke Does the patient have a stroke diagnosis?: No Physical Exam Vital Signs: Vital Signs: Last Vital Signs Temp 97.1 F 02/26/24 07:22 Pulse 75 02/26/24 07:22 Resp 18 02/26/24 07:22 BP 137/74 02/26/24 07:22 Pulse Ox 100 02/26/24 07:22 O2 Del Method Room Air 02/26/24 07:22 BMI result Body Mass Index 28.1 Const: Other: Awake alert no acute distress Resp: Other: Clear to auscultation bilaterally no rales rhonchi or wheezes Cardio: Other: No S4; positive S1-S2; no S3 murmurs rubs or gallops GI: Other: Soft nontender nondistended normoactive bowel sounds Neuro: Other: Cranial nerves 2-12 grossly intact as tested. Motor is 5/5 all extremities. Sensation is intact. Cognition appropriate. Gait not observed Extrem: Other: No edema bilaterally DS: Data Data Completed and Pending Completed studies during hospitalization [Text1]: Procedures Introduction of Other Thrombolytic into Peripheral Vein, Percutaneous Approach (07/25/23) Labs on day of discharge: Laboratory Results - last 24 hr 02/23/24 16:35 B-Natriuretic Peptide Discharge Plan Discharge Anticipated Discharge Date/Time: 02/26/24 10:33 Patient Disposition: er [facility] Discharge Diagnosis: Chest Pain Referrals: Po,Sabina Sanders MD [Primary Care Provider] - 1 Week Discharge Medications: New atorvastatin 80 mg Tablet 80 mg PO DAILY Qty: 30 0RF lidocaine [Lidocaine Pain Relief] 4 % Adhesive Patch,Medicated 1 patch transdermal DAILY Qty: 10 0RF Protocol: Apply to: Apply to: chest wall lorazepam 0.5 mg Tablet 0.5 mg PO BEDTIME PRN (Reason: anxiety) Qty: 30 0RF nicotine 21 mg/24 hr Patch 24 Hour 21 mg transdermal DAILY 5 Days Qty: 3 0RF omeprazole 20 mg Capsule,Delayed Release(Dr/Ec) 20 mg PO DAILY@0630 Qty: 30 0RF oxycodone 5 mg Tablet 5 mg PO Q4H PRN (Reason: Pain, Severe (Pain Scale 7-10)) Qty: 30 0RF Rx Instructions: Partial Fill upon patient request. enoxaparin 100 mg/mL Syringe 100 mg subcut Q12H Qty: 10 0RF duloxetine 30 mg Capsule,Delayed Release(Dr/Ec) 30 mg PO BEDTIME Qty: 30 0RF Continued albuterol sulfate [Ventolin HFA] 90 mcg/actuation HFA aerosol inhaler 2 puff inhalation Q4-6H PRN (Reason: Wheezing) Qty: 8.5 0RF Discontinued atorvastatin 80 mg tablet 80 mg PO DAILY Qty: 30 11RF Eliquis 5 mg tablet 5 mg PO BID 90 Days Qty: 180 1RF cholecalciferol (vitamin D3) 50 mcg (2,000 unit) tablet 50 mcg PO DAILY Qty: 90 3RF duloxetine 30 mg capsule,delayed release(DR/EC) 30 mg PO DAILY Qty: 90 1RF lorazepam 0.5 mg tablet 0.5 mg PO BEDTIME PRN (Reason: anxiety) Discharge Orders: Discharge Order (Routine); Ordered 02/26/24 Ordered By: Josue Rice Diet: Advance to usual diet Activity on Discharge: As tolerated Stand Alone Forms: Patient Portal Discharge page Print Language: Sinhala Care Plan Goals: Continue all therapies as outlined on transfer sheet Health Concerns: Cardiac catheterization as per receiving team Plan of Treatment: Further plans based on clinical course and forthcoming data Assessment: See discharge summary
--- NOTE | 2024-02-26 10:48 | MHC.CM.PN ---
PT TRANSFERRING TO [facility].
[2024-02-26 11:26] VITALS: BP 133/84; PULSE 93; RESP 18; TEMP 36.3; O2SAT 94
[2024-02-26] MEDS: HYDROmorphone HCl 1 MG/ML SYRINGE IVPUSH ×3 (11:50→18:00)
[2024-02-26 15:20] VITALS: BP 134/79; PULSE 90; RESP 20; TEMP 36.4; O2SAT 95
== END 2024-02-26 18:28 | disposition short-term general hospital (02) | DRG 313 ==
LOC: HO.ED 20:08 → HO.EDOVER 20:38 → HO.IMC 21:11
PROVIDERS: Family Medicine; Admitting Provider Internal Medicine; Emergency Provider Emergency Medicine; PCP Internal Medicine; Visit Provider Hospitalist
DX: R07.9 Chest pain, unspecified (principal); I42.8 Other cardiomyopathies; R55 Syncope and collapse; F17.210 Nicotine dependence, cigarettes, uncomplicated; E78.5 Hyperlipidemia, unspecified; G89.4 Chronic pain syndrome; F41.9 Anxiety disorder, unspecified; Z71.6 Tobacco abuse counseling; I25.2 Old myocardial infarction; I25.10 Atherosclerotic heart disease of native coronary artery without angina pectoris; Z20.822 Contact with and (suspected) exposure to COVID-19; Z86.73 Personal history of transient ischemic attack (TIA), and cerebral infarction without residual deficits; Z95.810 Presence of automatic (implantable) cardiac defibrillator; Z79.899 Other long term (current) drug therapy
CPT/HCPCS: 0241U; 36415; 71045; 71275; 80048; 80076; 80307; 81003; 82550; 83690; 83880; 84145; 84484; 85025; 85027; 85379; 93005; 93306; 99222; 99285; J1171; J1650; J2270; J7120; Q9957; Q9967

== ENCOUNTER 2024-02-23 20:32 | Outpatient (BNV) | payer MEDICARE, SELFPAY | END 2024-02-24 07:00 | PROVIDERS: Admitting Provider Internal Medicine; Emergency Provider Emergency Medicine; PCP Internal Medicine; Visit Provider Internal Medicine Cardiovascular Disease | DX: I35.1 Nonrheumatic aortic (valve) insufficiency (principal); Z95.810 Presence of automatic (implantable) cardiac defibrillator | CPT/HCPCS: 93306 ==

== ENCOUNTER → 2024-02-23 20:32 | Outpatient (BNV) | payer MEDICARE, SELFPAY | PROVIDERS: Admitting Provider Internal Medicine; Emergency Provider Emergency Medicine; PCP Internal Medicine; Visit Provider Family Medicine | DX: R07.9 Chest pain, unspecified (principal) | CPT/HCPCS: 99232; 99239 ==

== ENCOUNTER → 2024-02-23 20:32 | Outpatient (BNV) | payer MEDICARE, SELFPAY | PROVIDERS: Admitting Provider Internal Medicine; Emergency Provider Emergency Medicine; PCP Internal Medicine; Visit Provider Internal Medicine Cardiovascular Disease | DX: R07.9 Chest pain, unspecified (principal); R06.02 Shortness of breath; I42.8 Other cardiomyopathies; R55 Syncope and collapse; R42 Dizziness and giddiness | CPT/HCPCS: 99232; 99233 ==

== ENCOUNTER 2024-02-25 12:20 | Outpatient (BNV) | payer MEDICARE, SELFPAY | END 2024-02-25 12:32 | PROVIDERS: Admitting Provider Internal Medicine; Emergency Provider Emergency Medicine; PCP Internal Medicine; Visit Provider Internal Medicine Cardiovascular Disease | DX: R06.09 Other forms of dyspnea (principal); I49.3 Ventricular premature depolarization; R94.31 Abnormal electrocardiogram [ECG] [EKG] | CPT/HCPCS: 93010 ==

== ENCOUNTER → 2024-02-27 23:59 | Outpatient (BNV) | payer MEDICARE, SELFPAY | PROVIDERS: PCP Internal Medicine; Visit Provider Internal Medicine Cardiovascular Disease | DX: I50.20 Unspecified systolic (congestive) heart failure (principal); I42.9 Cardiomyopathy, unspecified | CPT/HCPCS: 93460; 99152 ==

== ENCOUNTER 2024-03-09 09:58 | Outpatient (AMB) | payer MEDICARE, SELFPAY ==
--- NOTE | 2024-03-09 10:02 | MHC.OFFVIS ---
Vital Signs 03/09/24 10:03 Height 6 ft 2 in Weight 187 lb 6.287 oz BMI 24.1 BP 120/80 Blood Pressure Location Lt brachial Position Sitting Pulse 102 H Pulse Source Pulse Oximeter Pulse Oximetry (%) 99 Oxygen Delivery Method Room Air Intake Visit Reasons: HH f/u Intake Note: pt is here for hospital follow up and stats something is wrong, he was in [facility] for 5 days for shortness of breath, full cardiac work up and it is all negative, told him it was his lungs, so he states shortness of breat with any walking, stairs and lying on his back, he feels something is not right, he is not himself Braze Operator Required: No Allergies bupropion [From Wellbutrin] Allergy (Intermediate, Verified 03/09/24 10:35) Hives, Rage varenicline [From Chantix] Allergy (Intermediate, Verified 03/09/24 10:35) Agitation, Aggression codeine [Codeine] Allergy (Mild, Verified 03/09/24 10:35) HIVES/ITCHING methadone [Methadone] Allergy (Mild, Verified 03/09/24 10:35) HIVES/ITCHING barium sulfate Allergy (Unknown, Verified 03/09/24 10:35) Unknown Black Pepper-Turmeric Allergy (Unknown, Uncoded 03/09/24 10:35) Unknown Medication List - Last Reconciled 03/09/24 by Mare Escobar MD albuterol sulfate 90 mcg/actuation (Ventolin HFA) 2 puffs inhalation Q4-6H PRN atorvastatin 80 mg PO DAILY duloxetine 30 mg PO BEDTIME lidocaine 4% (Lidocaine Pain Relief) 1 patch See Protocol transdermal DAILY lorazepam 0.5 mg PO BEDTIME PRN Do you need a note to return to daycare/school/sports/work: No HPI HPI HH f/u: Details: 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 HOSPITALIZATION FOLLOW-UP IN THE LAST WEEK OF FEBRUARY 2024 HE WAS INITIALLY ADMITTED AT [facility] WITH SYMPTOMS OF GENERAL FATIGUE NONSPECIFIC CHEST PAIN AND PAST HISTORY OF NONISCHEMIC CARDIOMYOPATHY. HE WAS REFERRED TO [facility] FOR CARDIAC CATHETERIZATION WHICH TURNED OUT TO BE NEGATIVE HIS CARDIAC WORK UP WAS NEGATIVE FOR ACUTE MYOCARDIAL INFARCTION OR ISCHEMIA. HE WAS DISCHARGED HOME ON HIS USUAL MEDICATIONS BUT ALSO ADVISED TO TRY USING SPIRIVA. HOWEVER HE DENIES ANY COUGH OR WHEEZING AND HAS NOT STARTED THIS MEDICATION. IT SHOULD BE NOTED THAT ABOUT A DAY BEFORE HE CAME TO [facility] EMERGENCY ROOM, HE HAD AN ACCIDENTAL ELECTRIC SHOCK WHEN A BARE LACTIC WIRE TOUCHED HIS RIGHT OR. ANOTHER PIECE OF INFORMATION IS, THAT HE STILL SMOKES 10 CIGARETTES A DAY, HE DENIES USING ANY NARCOTICS OR ALCOHOL. ANOTHER PIECE OF INFORMATION THAT HE HAS DIFFICULTY IN SLEEPING AT NIGHT. DUE TO HIS FAILED BACK SURGERY HE CONTINUES TO HAVE BACK PAIN AND CAN NOT SLEEP IN SUPINE POSITION. BUT EVEN IN LATERAL POSITION HE IS STILL HAVING FREQUENT BOUTS OF WAKING UP, WITH SOME GASPING LIKE FEELING. HE CLAIMS THAT HIS SLEEP REMAINS DISORDERED, AND HE FEELS TIRED AND SLEEPY DURING THE DAYTIME. HE DID HAVE HOME-BASED SLEEP STUDY IN JULY 2013, AND FOUND TO HAVE MILD OBSTRUCTIVE SLEEP APNEA PREDOMINANTLY IN SUPINE POSITION, BECAUSE SEVERITY BEING MILD IT WAS DECIDED THAT HE SHOULD BE TREATED WITH CONSERVATIVE MEASURES ESPECIALLY POSITION THERAPY, WHICH HE HAS TRIED TO DO, BUT STILL REMAINS SYMPTOMATIC. COUNTS INCLUDE 234 BEDS AT THE [facility] Medical History (Updated 03/09/24 @ 17:08 by Mare Escobar MD) PATRICIA (obstructive sleep apnea) Cardiomyopathy Vertigo Stroke Cerebral infarction Hyperlipidemia History of TIA (transient ischemic attack) (~2013) History of cardiac arrest (~2019) Cardiac defibrillator in place Nonischemic cardiomyopathy Atherosclerotic cardiovascular disease Hypertension Hypercholesterolemia Restrictive lung disease COPD (chronic obstructive pulmonary disease) Cigarette nicotine dependence Nicotine dependence, cigarettes, uncomplicated Uncomplicated opioid dependence Chronic pain syndrome Rotator cuff arthropathy of both shoulders MRSA infection Surgical History History of implantable cardiac defibrillator (ICD) History of cardiac cath S/P insertion of spinal cord stimulator History of back surgery History of fusion of cervical spine History of repair of left rotator cuff History of repair of right rotator cuff History of cholecystectomy History of colonoscopy Family History Mother Multiple sclerosis Father Diabetes Amputat leg, bilat-complicated Sister Lupus Social History Household Members: Family Housing: House Do you presently have visiting nurse or other home services: No Alcohol intake: never Patient Tobacco Use Status: Current everyday Tobacco user Tobacco use type: Cigarette, Cigar and Smokeless Tobacco Cigarette Packs Per Day: 0.50 Cigarettes Per Day: 10.0 Years Smoked: (onset 9yo, 1/2-3ppd x 40yrs, now <1/4ppd - 30+PYH) e-Cigarette/Vaping Use: Currently Using Second Hand Smoke Exposure: Yes service: No Cognitive needs: No Hearing needs: No Vision needs: No Review of Systems Const All systems reviewed & are unremarkable except as noted in HPI and below Eyes Reports no additional complaints ENT Reports no additional complaints Card Denies chest pain at rest and Denies leg edema Resp Reports as per HPI GI Reports no additional complaints Reports no additional complaints Musc Reports no additional complaints Skin/Breast Reports system reviewed and no additional complaints, except as documented Neuro Reports no additional complaints Psych Reports no additional complaints Physical Exam Vital Signs: Last Vital Signs Pulse 102 H 03/09/24 10:03 BP 120/80 03/09/24 10:03 Pulse Ox 99 03/09/24 10:03 Oxygen Delivery Method Room Air 03/09/24 10:03 BMI result Body Mass Index 24.1 Const General: comfortable (Somewhat anxious), no acute distress, alert and awake Orientation/consciousness: patient oriented x3 HEENT Head: Yes normal to inspection General nose exam: No nasal polyps present and No nasal discharge present Face and sinus: Yes sinuses nontender Mouth: oropharynx normal Throat: Yes posterior oropharynx normal Eyes General: appearance normal, both eyes and all related structures Neck Neck: Yes normal visual inspection, Yes no lymphadenopathy, Yes trachea midline and Yes no JVD Thyroid: Thyroid normal Chest Chest palpation & inspection: normal inspection of the chest, normal palpation of entire chest wall and no tenderness Resp Other: Percussion note is resonant, breath sounds are slightly distant with prolonged expiratory phase. NO WHEEZES OR CREPITATIONS ARE HEARD. Cardio Palpation: normal PMI Rate: regular rate Rhythm: regular rhythm and other (Pacemaker battery in the left pectoral area) Heart sounds: no gallops and no murmurs GI Palpation (GI): Soft to palpation, nontender, No hepatosplenomegaly present and no masses Auscultation: normal bowel sounds Back/Spine/Pelvis Thoracic/Lumbar Spine: thoracic and lumbar spine normal to inspection and thoraco-lumbar ROM limited Skin Other: Extensive tattoos General skin exam: no rashes or lesions noted Neuro General: patient oriented x3 and no focal motor deficits Cranial nerves: Yes CN's II-XII intact bilaterally Extrem General: Yes normal to inspection, Yes no clubbing, cyanosis or edema and Yes no calf tenderness Psych Appearance: grossly normal and well kempt Speech and movement: Normal speech and movement present Office Procedures Spirometry Testing Spirometry Comments: Spirometry done in the office Dr. Escobar has the results results scanned to his chart. [id number]- Spirometry Results Reviewed Results Reviewed: SPIROMETRY TODAY IN THE OFFICE SHOWS PATTERN OF MODERATE DEGREE OF RESTRICTIVE PULMONARY DISORDER, . NO OBSTRUCTIVE DISORDER UNCHANGED FROM THE SPIROMETRY IN 2022 REVIEWED THE RESULTS OF HOME-BASED SLEEP STUDY ON 07/18/2023. EXPLAINED THE RESULTS TO THE PATIENT HE HAD EVIDENCE OF OBSTRUCTIVE SLEEP APNEA WHICH WAS MILD WITH TOTAL SLEEP TIME AHI 7.2, MAXIMUM IN SUPINE POSITION. HAD BORDERLINE NOCTURNAL HYPOXEMIA Assessment & Plan Assessment & Plan (1) COPD (chronic obstructive pulmonary disease): Comment: COPD secondary to ongoing smoking. However as per PFT, it is mild and his problem is mostly restrictive lung disease. Code(s): J44.9 - Chronic obstructive pulmonary disease, unspecified Category: Medical Qualifiers: COPD type: emphysema Emphysema type: unspecified Qualified Code(s): J43.9 - Emphysema, unspecified Plan: Continue to use Ventolin HFA 2 puffs Q 4-6 hours p.r.n. (2) Restrictive lung disease: Comment: PFT shows moderate degree of restrictive lung disorder. I think this is probably due to his advanced degenerative arthritis of the spine . He does not have evidence of interstitial lung disease. Explained to him and he is advised to do deep breathing exercises 2 or 3 times a day.. Code(s): J98.4 - Other disorders of lung Category: Medical Plan: Advised to do deep breathing exercises 3 times a day (3) Nicotine dependence, cigarettes, uncomplicated: Comment: (current smoker - onset 9yo, 1/2-3ppd x 40yrs, now <1/4ppd - 30+PYH) Code(s): F17.210 - Nicotine dependence, cigarettes, uncomplicated Category: Medical Plan: Had a good discussion with him and I advised him that he should quit smoking . (4) Acute CVA (cerebrovascular accident): Comment: 07/2023 T maame K used He has had acute CVA in July of this year . Recovered from that Code(s): I63.9 - Cerebral infarction, unspecified Category: Medical Plan: Has part of preventive measure he would need to use CPAP. (5) History of cardiac cath: Comment: (2021- normal left main; LAD 40-50% ostial stenosis; RCA 30-40% stenosis in the proximal part of PLV) Code(s): Z98.890 - Other specified postprocedural states Category: Surgical Plan: Patient does have baseline coronary artery disease. I stressed that he does need to, stay on preventive care. (6) Cardiomyopathy: Comment: He is known to have non-ischemic cardiomyopathy with low ejection fraction. This may be the reason for his ongoing general fatigue. Code(s): I42.9 - Cardiomyopathy, unspecified Category: Medical Plan: Continue follow-up with cardiology. I think use of CPAP would be helpful. (7) PATRICIA (obstructive sleep apnea): Comment: Home-based sleep study in July 2023 was positive for sleep apnea. It was considered mild, but I think he continues to have symptoms of sleep apnea. In view of his multiple comorbidities I think he is a good candidate to try using CPAP. Code(s): G47.33 - Obstructive sleep apnea (adult) (pediatric) Category: Medical Plan: Discussed with him the results of the sleep study, and explained that it will be beneficial for him to use the CPAP. He has agreed to use it and order for CPAP or being sent. Will start him on auto PAP mode pressure setting 6-20 cm, using nasal worse is fullface mask whichever is comfortable for him. Orders: Orders AMB Spirometry Testing Today J43.9 - Emphysema, unspecified Coding Level of Care Code Est Pt Level 4 (87106) Diagnoses Pulmonary emphysema, unspecified emphysema type J43.9 COPD type: emphysema Emphysema type: unspecified Restrictive lung disease J98.4 Nicotine dependence, cigarettes, uncomplicated F17.210 Acute CVA (cerebrovascular accident) I63.9 History of cardiac cath Z98.890 Cardiomyopathy I42.9 PATRICIA (obstructive sleep apnea) G47.33 CPT Codes Spirometry - CPT: 17737- Spirometry ([id number])
[2024-03-09 10:03] VITALS: BP 120/80; PULSE 102; O2SAT 99; BMI 24.1
== END 2024-03-09 10:52 | disposition home or self-care (01) ==
PROVIDERS: PCP Internal Medicine; Visit Provider Internal Medicine
DX: J43.9 Emphysema, unspecified (principal); J98.4 Other disorders of lung; F17.210 Nicotine dependence, cigarettes, uncomplicated; I63.9 Cerebral infarction, unspecified; Z98.890 Other specified postprocedural states; I42.9 Cardiomyopathy, unspecified; G47.33 Obstructive sleep apnea (adult) (pediatric)
CPT/HCPCS: 94010; 99214

== ENCOUNTER → 2024-03-09 09:58 | Outpatient (BNVA) | payer MEDICARE, SELFPAY | PROVIDERS: PCP Internal Medicine; Visit Provider Internal Medicine | DX: J43.9 Emphysema, unspecified (principal); J98.4 Other disorders of lung; I63.9 Cerebral infarction, unspecified; I42.9 Cardiomyopathy, unspecified; G47.33 Obstructive sleep apnea (adult) (pediatric); F17.210 Nicotine dependence, cigarettes, uncomplicated; Z98.890 Other specified postprocedural states | CPT/HCPCS: 94010; 99212 ==

== ENCOUNTER 2024-03-12 08:18 | Outpatient (AMB) | payer MEDICARE, SELFPAY ==
--- NOTE | 2024-03-12 08:30 | A.OFFVIS_ITS ---
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 Required: No Accompanied by: Self / Same As Patient Allergies bupropion [From Wellbutrin] Allergy (Intermediate, Verified 03/09/24 10:35) Hives, Rage varenicline [From Chantix] Allergy (Intermediate, Verified 03/09/24 10:35) Agitation, Aggression codeine [Codeine] Allergy (Mild, Verified 03/09/24 10:35) HIVES/ITCHING methadone [Methadone] Allergy (Mild, Verified 03/09/24 10:35) HIVES/ITCHING barium sulfate Allergy (Unknown, Verified 03/09/24 10:35) Unknown Black Pepper-Turmeric Allergy (Unknown, Uncoded 03/09/24 10:35) Unknown Medication List - Last Reconciled 03/12/24 by LIMA Nelson albuterol sulfate 90 mcg/actuation (Ventolin HFA) 2 puffs inhalation Q4-6H PRN apixaban (Eliquis) 5 mg PO BID atorvastatin 80 mg PO DAILY duloxetine 30 mg PO BEDTIME lorazepam 0.5 mg PO BEDTIME PRN HPI HPI F/U s/p cardiac cath: Details: Daniel is a 53-year-old male with past medical history of hypertension, hyperlipidemia, nonischemic cardiomyopathy, cardiac arrest 2019, STEMI, cardiac catheterization showing no culprit, status post ICD, mild sleep apnea, CVA 07/25/2023 treated with thrombolytics, who has been running low blood pressures and his medications have been removed accordingly. He was recently admitted to [facility] with chest discomfort. He ruled out for ACS. Due to ongoing symptoms he was transferred to [facility] and underwent cardiac catheterization showing nonobstructive coronary artery disease. He now presents for follow-up. Today he reports that he continues to have issues with mid chest discomfort, described as pressure that can occur at rest and with activity. He also has shortness of breath with activity. He is following with pulmonology. He says CPAP mask has been ordered for him and he hopes to get it in the next week or so. No PND, orthopnea or edema. No palpitations, presyncope, syncope, falls. He has had issues with lightheadedness with position changes. He says the only residual effect he has from the CVA is that he forgets words at times. He is mostly sedentary. He has chronic back pain which limits his physical activity. No bleeding issues reported. Taking meds as directed. [facility] Medical History PATRICIA (obstructive sleep apnea) Cardiomyopathy Vertigo Stroke Cerebral infarction Hyperlipidemia History of TIA (transient ischemic attack) (~2013) History of cardiac arrest (~2019) Cardiac defibrillator in place Nonischemic cardiomyopathy Atherosclerotic cardiovascular disease Hypertension Hypercholesterolemia Restrictive lung disease COPD (chronic obstructive pulmonary disease) Cigarette nicotine dependence Nicotine dependence, cigarettes, uncomplicated Uncomplicated opioid dependence Chronic pain syndrome Rotator cuff arthropathy of both shoulders MRSA infection Surgical History History of implantable cardiac defibrillator (ICD) History of cardiac cath S/P insertion of spinal cord stimulator History of back surgery History of fusion of cervical spine History of repair of left rotator cuff History of repair of right rotator cuff History of cholecystectomy History of colonoscopy Family History Mother Multiple sclerosis Father Diabetes Amputat leg, bilat-complicated Sister Lupus Social History Household Members: Family Housing: House Do you presently have visiting nurse or other home services: No Alcohol intake: never Patient Tobacco Use Status: Current everyday Tobacco user Tobacco use type: Cigarette, Cigar and Smokeless Tobacco Cigarette Packs Per Day: 0.50 Cigarettes Per Day: 10.0 Years Smoked: (onset 9yo, 1/2-3ppd x 40yrs, now <1/4ppd - 30+PYH) e-Cigarette/Vaping Use: Currently Using Second Hand Smoke Exposure: Yes service: No Cognitive needs: No Hearing needs: No Vision needs: No Review of Systems Const Denies chills, Denies fatigue, Denies fever(s), Denies weight gain and Denies weight loss ENT Denies dizziness Card Reports chest pain, Reports chest pain at rest, Reports chest pain with activity, Denies leg edema, Reports lightheadedness, Denies palpitations, Reports dyspnea, Reports dyspnea on exertion, Denies orthopnea and Denies other Resp Denies cough, Reports dyspnea and Reports dyspnea on exertion GI Denies hematochezia and Denies change in stool character Musc Denies abnormal gait, Denies muscle weakness, Denies numbness, Denies radiating pain into limb and Denies tingling Neuro Denies abnormal gait, Denies dizziness, Denies numbness and Denies tingling Endo Denies fatigue and Denies palpitations Physical Exam Vital Signs: Last Vital Signs Pulse 102 H 03/12/24 08:31 BP 100/62 03/12/24 08:31 BMI result Body Mass Index 28.4 Const General: cooperative, healthy appearing, comfortable and no acute distress Orientation/consciousness: patient oriented x3 Neck Neck: Yes normal visual inspection and Yes no JVD Resp Effort & Inspection: normal respiratory effort Auscultation: clear to auscultation bilaterally, no rales, no rhonchi and no wheezes Cardio Rate: regular rate Rhythm: regular rhythm Heart sounds: S1 normal heart sound present, S2 normal heart sound present, no gallops, no murmurs and no rubs Neuro General: patient oriented x3 Extrem General: Yes normal to inspection and No no pedal edema Psych Appearance: grossly normal Mental Status: mental status grossly normal Speech and movement: Normal speech and movement present Assessment & Plan Assessment & Plan (1) Chest pain: Code(s): R07.9 - Chest pain, unspecified Category: Medical Plan: [facility] admission last month with lightheadedness and chest discomfort. EKG showed no acute findings. Troponin levels were normal. D-dimer negative. He was admitted for further evaluation and due to persistent symptoms he was transferred to [facility] for cardiac catheterization showing nonobstructive coronary disease. At this time he continues to have symptoms of mid chest pressure. He says it can occur at rest and with activity. He does have a diagnosis of COPD and follows with pulmonology.. He believes he may have some GI/reflux issues his currently untreated. Informed him that his chest discomfort is noncardiac in nature. Details of the cardiac catheterization reviewed with him. Will continue management for stable nonobstructive CAD. He also has known nonischemic cardiomyopathy. He is not on aspirin, he is on Eliquis. He is on high-dose atorvastatin. He had been on carvedilol, lisinopril and Aldactone however those have been discontinued over the last several weeks due to low blood pressure readings. Pulse rate is elevated today at 102. Blood pressure recheck by me 114/64. Will have him start on metoprolol XL 25 mg daily. (to start out by taking half a tablet daily and if no symptoms increase to full tablet.). Further discuss symptoms with his PCP and pulmonology. (2) S/P cardiac cath: Comment: 02/27/2024, lad ostial 30% stenosis, left circumflex, RCA and ramus with minimal luminal irregularities Code(s): Z98.890 - Other specified postprocedural states Category: Surgical Plan: Right radial catheterization site well healed (3) Atherosclerotic cardiovascular disease: Code(s): I25.10 - Atherosclerotic heart disease of [place] coronary artery without angina pectoris Category: Medical Plan: History of STEMI 2020 with cardiac arrest, VF/VT. He did undergo cardiac catheterization at that time with no culprit lesion, nonobstructive disease. Echocardiogram has shown reduced EF. He did have history of nonischemic cardiomyopathy prior to his cardiac arrest as well. Most recent echo done 02/24/2024 showing EF 30-35%, apex akinetic. Repeat cardiac catheterization as above, mild nonobstructive coronary disease. Continue med management. We will be starting metoprolol XL to help with neurohormonal modulation. Going forward if blood pressure allows then will plan to restart of Edouard/Arb. He is not requiring diuretics at this time. Signs and symptoms of heart failure reviewed with him. (4) Cardiomyopathy: Code(s): I42.9 - Cardiomyopathy, unspecified Category: Medical Plan: As above (5) Acute CVA (cerebrovascular accident): Comment: 07/2023 T and K used He has had acute CVA in July of this year . Recovered from that Code(s): I63.9 - Cerebral infarction, unspecified Category: Medical Plan: Patient presented to [facility] on 07/25/2023 with report of left-sided weakness, numbness and difficulty swallowing. CT scan of the head showed no acute hemorrhage or infarct. CTA of the head and neck showed no large vessel occlusion, saccular aneurysm or dissection. Due to his symptoms he was given thrombolytics. His symptoms did resolve. He was seen by Neurology and started on Eliquis for a coagulation in. He was thought to have an acute ischemic infarct, possibly cardiac related. He did have a cardiac event monitor on 08/12/2023 for 30 days which showed sinus rhythm with average heart rate 77, occasional SVE, occasional VE with burden 2.3%, longest run 15 beats. No finding of atrial fibrillation. Does have a defibrillator which can assist us in long-term monitoring. Reviewed the above with him. Today he reports occasional word-finding as his only residual symptoms. He has no mobility disorders and no bleeding issues. Will have him continue on Eliquis. (6) History of cardiac arrest: Onset Date: ~2019 Comment: (cardiac arrest - VF/VT 2019 - s/p ICD) Code(s): Z86.74 - Personal history of sudden cardiac arrest Category: Medical Plan: As above (7) NSVT (nonsustained ventricular tachycardia): Code(s): I47.29 - Other ventricular tachycardia Category: Medical Plan: Adding metoprolol. No ICD discharges. (8) Cardiac defibrillator in place: Comment: (s/p cardiac arrest 2019) Code(s): Z95.810 - Presence of automatic (implantable) cardiac defibrillator Category: Medical Plan: [employer] ICD in place. Office interrogation last visit shows device is functioning normally. He V paces less than 1%. Remote monitoring in use. Next office interrogation due in 3 months (9) Hypersomnia: Code(s): G47.10 - Hypersomnia, unspecified Category: Medical Plan: Sleep study recently done shows mild obstructive sleep apnea. He has been following with pulmonology and he says he is now getting a CPAP mask. He hopes to get it in the next 1-2 weeks. (10) Hospital discharge follow-up: Code(s): Z09 - Encounter for follow-up examination after completed treatment for conditions other than malignant neoplasm Category: Medical Plan: As above Plan Time spent on chart review, documentation, interview and assessment Medications: New metoprolol succinate ER 25 mg PO DAILY 90 tabs 1RF Coding Level of Care Code Est Pt Level 4 (71823) Complex EM visit Add On G2211 Diagnoses Chest pain R07.9 S/P cardiac cath Z98.890 Atherosclerotic cardiovascular disease I25.10 Cardiomyopathy I42.9 Acute CVA (cerebrovascular accident) I63.9 History of cardiac arrest Z86.74 NSVT (nonsustained ventricular tachycardia) I47.[address] Z95.810 Hypersomnia G47.10 Hospital discharge follow-up Z09 Time Spent (min) 36
[2024-03-12 08:31] VITALS: BP 100/62; PULSE 102; BMI 28.4
== END 2024-03-12 08:59 | disposition home or self-care (01) ==
PROVIDERS: PCP Internal Medicine; Visit Provider Nurse Practitioner Family
DX: R07.9 Chest pain, unspecified (principal); Z98.890 Other specified postprocedural states; I25.10 Atherosclerotic heart disease of native coronary artery without angina pectoris; I42.9 Cardiomyopathy, unspecified; I63.9 Cerebral infarction, unspecified; Z86.74 Personal history of sudden cardiac arrest; I47.29 Other ventricular tachycardia; Z95.810 Presence of automatic (implantable) cardiac defibrillator; G47.10 Hypersomnia, unspecified; Z09 Encounter for follow-up examination after completed treatment for conditions other than malignant neoplasm
CPT/HCPCS: 99214; G2211

== ENCOUNTER → 2024-03-12 08:18 | Outpatient (BNVA) | payer MEDICARE, SELFPAY | PROVIDERS: PCP Internal Medicine; Visit Provider Nurse Practitioner Family | DX: Z09 Encounter for follow-up examination after completed treatment for conditions other than malignant neoplasm (principal); R07.9 Chest pain, unspecified; I25.10 Atherosclerotic heart disease of native coronary artery without angina pectoris; I47.29 Other ventricular tachycardia; G47.10 Hypersomnia, unspecified; I42.9 Cardiomyopathy, unspecified; Z98.890 Other specified postprocedural states; Z86.73 Personal history of transient ischemic attack (TIA), and cerebral infarction without residual deficits; Z86.74 Personal history of sudden cardiac arrest; Z95.810 Presence of automatic (implantable) cardiac defibrillator | CPT/HCPCS: 99212 ==

== ENCOUNTER 2024-03-26 11:42 | Outpatient (AMB) | payer MEDICARE, MEDICAID, SELFPAY ==
--- NOTE | 2024-03-26 11:50 | MHC.OFFVIS ---
Intake Visit Reasons: PVR/Med Review(Tamsulosin) Intake Note: Patient is Present for Follow Up Med Review Urology Medication: None (Workforce Management Analyst stopped Tamsulosin) Antibiotic Allergies: Varenicline, Blood Thinners: Eliquis Tactical Air Control Party Required: No Accompanied by: Self / Same As Patient Allergies bupropion [From Wellbutrin] Allergy (Intermediate, Verified 03/26/24 11:57) Hives, Rage varenicline [From Chantix] Allergy (Intermediate, Verified 03/26/24 11:57) Agitation, Aggression codeine [Codeine] Allergy (Mild, Verified 03/26/24 11:57) HIVES/ITCHING methadone [Methadone] Allergy (Mild, Verified 03/26/24 11:57) HIVES/ITCHING barium sulfate Allergy (Unknown, Verified 03/26/24 11:57) Unknown Black Pepper-Turmeric Allergy (Unknown, Uncoded 03/26/24 11:57) Unknown Medication List - Last Reconciled 03/26/24 by Arnulfo Mary MD albuterol sulfate 90 mcg/actuation (Ventolin HFA) 2 puffs inhalation Q4-6H PRN apixaban (Eliquis) 5 mg PO BID atorvastatin 80 mg PO DAILY duloxetine 30 mg PO BEDTIME finasteride (Proscar) 5 mg PO DAILY lorazepam 0.5 mg PO BEDTIME PRN metoprolol succinate ER 25 mg PO DAILY HPI Comments Details: 03/26/24--Daniel is a 53-year-old male with lower urinary tract symptoms of hesitancy and nocturia. He was doing well on tamsulosin. His Cardiology has had him discontinue the tamsulosin due to lower blood pressure. AUA symptom score 28. We will check an ultrasound of bladder and prostate including kidneys, trial of finasteride 5 mg daily follow-up in 3 months consider cystoscopy at that time. 12/02/2022? He presents today for an evaluation of?urinary retention. Patient has a past medical history significant for coronary artery disease, pacemaker defibrillator, COPD, and history of TIA in 2013. He is currently a smoker. h/o multiple back surgeries. He has failed the trial of spinal cord stimulator for back pain. He has seen in the ED on 11/28/2022 for c/o's not able to urinate. Review of notes Bladder scan PVR 500 mL. A jovel was placed. The patient was referred to the urology office during that time.?Catheter has been was removed and he deflated the balloon after 2 days and he states that he is voiding well since then. Patient states that he has seen urologist in the past many years ago, but from several years he has not seen urologist as his urologist is retired. He states that he has been taking tamsulosin 0.4 mg. The pt states he had a morphine injection into his back prior to the episode of urinary retention, The episode of UR appears to be related to the injection for back pain. Patient was instructed that he could trial an increase in the Flomax to BID at time of next back injection, however it is unclear that may help. If the urinary retention symptoms recur he should go back to ED. Plan: Continue Flomax. Follow-up in 6 months. Evaluation today-UA? leukocytes: negative; blood: negative; bladder scan PVR: 42 mL. Review of labs -- BUN 15, creat 0.9; PSA 03/08/22- 0.67 PFSH Medical History PATRICIA (obstructive sleep apnea) Cardiomyopathy Vertigo Stroke Cerebral infarction Hyperlipidemia History of TIA (transient ischemic attack) (~2013) History of cardiac arrest (~2019) Cardiac defibrillator in place Nonischemic cardiomyopathy Atherosclerotic cardiovascular disease Hypertension Hypercholesterolemia Restrictive lung disease COPD (chronic obstructive pulmonary disease) Cigarette nicotine dependence Nicotine dependence, cigarettes, uncomplicated Uncomplicated opioid dependence Chronic pain syndrome Rotator cuff arthropathy of both shoulders MRSA infection Surgical History History of implantable cardiac defibrillator (ICD) History of cardiac cath S/P insertion of spinal cord stimulator History of back surgery History of fusion of cervical spine History of repair of left rotator cuff History of repair of right rotator cuff History of cholecystectomy History of colonoscopy Family History Mother Multiple sclerosis Father Diabetes Amputat leg, bilat-complicated Sister Lupus Social History Household Members: Family Housing: House Do you presently have visiting nurse or other home services: No Alcohol intake: never Patient Tobacco Use Status: Current everyday Tobacco user Tobacco use type: Cigarette, Cigar and Smokeless Tobacco Cigarette Packs Per Day: 0.50 Cigarettes Per Day: 10.0 Years Smoked: (onset 9yo, 1/2-3ppd x 40yrs, now <1/4ppd - 30+PYH) e-Cigarette/Vaping Use: Currently Using Second Hand Smoke Exposure: Yes service: No Cognitive needs: No Hearing needs: No Vision needs: No Review of Systems Const All systems reviewed & are unremarkable except as noted in HPI and below Reports no additional complaints Eyes Reports no additional complaints ENT Reports no additional complaints Card Reports no additional complaints Resp Reports no additional complaints GI Reports no additional complaints Reports as per HPI Musc Reports no additional complaints Skin/Breast Reports system reviewed and no additional complaints, except as documented Neuro Reports no additional complaints Psych Reports no additional complaints Endo Reports no additional complaints Fred/Lymph Reports no additional complaints Aller/Immun Reports no additional complaints Quality Reporting (2019) Benign Prostatic Hyperplasia ([facility] 771) AUA symptom score: 28 Quality of life due to urinary symptoms: If you were to spend the rest of your life with your urinary condition the way it is now, how would you feel about that?: Terrible Assessment & Plan Assessment & Plan (1) Cigarette nicotine dependence: Comment: He has history of long-time smoking 42 years x half pack a day, now down to 2-3 cigarettes a day. He is also using electronic cigarettes. Code(s): F17.210 - Nicotine dependence, cigarettes, uncomplicated Category: Medical (2) BPH w/o urinary obs/LUTS: Code(s): N40.0 - Benign prostatic hyperplasia without lower urinary tract symptoms Category: Medical (3) Nocturia more than twice per night: Code(s): R35.1 - Nocturia Category: Medical Plan proscar 5 mg daily, US kidney/bladder/prostate Orders: Orders US retroperitoneal comp Today N40.1 - Benign prostatic hyperplasia with lower urinary tract symptoms, R35.1 - Nocturia Medications: New finasteride (Proscar) 5 mg PO DAILY 90 tabs 3RF Patient Instructions: The patient had an opportunity to ask questions regarding treatment plan. The patient expressed understanding and agreement with the above treatment plan. The patient is aware they should contact our office by phone for worsening of their current condition or the appearance of new symptoms. Compliance is encouraged with any medications and followup testing that is ordered. It is a privilege to be allowed the opportunity to participate in the urologic care of your patient. If you have any questions or concerns regarding treatment for the above conditions please do not hesitate to contact me. The office telephone contact is [phone]. This note is constructed in part using voice recognition software. While every effort has been made to ensure accuracy motor overhauler errors may have been included. Yours sincerely, Arnulfo Mary MD Coding Level of Care Code Est Pt Level 4 (04849) Diagnoses Cigarette nicotine dependence F17.210 BPH w/o urinary obs/LUTS N40.0 Nocturia more than twice per night R35.1 AUA Symptom Score AUA Incomplete emptying - It does not feel like I empty my bladder all the way.: 5 - Almost always Frequency - I have to go again less than two hours after I finish urinating.: 4 - More than half the time Intermittency - I stop and start again several times when I urinate.: 4 - More than half the time Urgency - It is hard to wait when I have to urinate.: 4 - More than half the time Weak stream - I have a weak urinary stream.: 3 - About half the time Straining - I have to push or strain to begin urination.: 3 - About half the time Nocturia - I get up to urinate after I go to bed until the time I get up in the morning.: 5 time or more AUA Symptom Score: 28 Quality of life due to urinary symptoms: If you were to spend the rest of your life with your urinary condition the way it is now, how would you feel about that?: Terrible Source: Eric CARTER, Linn RUSH Jr, O'Vincent MP, et al, and the Measurement Committee of the [place] [employer]. The [place] [employer] symptom index for benign prostatic hyperplasia. J Urol. 1992; 148: 1704-0632. Copyright 1992 [place] [employer]
== END 2024-03-26 12:24 | disposition home or self-care (01) ==
PROVIDERS: PCP Internal Medicine; Visit Provider Urology
DX: F17.210 Nicotine dependence, cigarettes, uncomplicated (principal); N40.0 Benign prostatic hyperplasia without lower urinary tract symptoms; R35.1 Nocturia
CPT/HCPCS: 99214

== ENCOUNTER → 2024-03-26 11:42 | Outpatient (BNVA) | payer MEDICARE, SELFPAY | PROVIDERS: PCP Internal Medicine; Visit Provider Urology | DX: N40.1 Benign prostatic hyperplasia with lower urinary tract symptoms (principal); R35.1 Nocturia; F17.210 Nicotine dependence, cigarettes, uncomplicated | CPT/HCPCS: 99212 ==

== ENCOUNTER 2024-03-29 15:50 | Outpatient (AMB) | payer MEDICARE, MEDICAID, SELFPAY ==
--- NOTE | 2024-03-29 15:53 | A.OFFPC_ITS ---
Vital Signs 03/29/24 15:55 Height 6 ft 2 in Weight 218 lb 2 oz BMI 28.0 BP 100/68 Blood Pressure Location Lt brachial Position Sitting Pulse 97 Pulse Source Pulse Oximeter Temp 97.3 F Temp Source Skin Pulse Oximetry (%) 99 Oxygen Delivery Method Room Air Intake Visit Reasons: Coronary artery disease Intake Note: Patient is here to follow up on CAD. 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 per policy Accompanied by: Self / Same As Patient Allergies bupropion [From Wellbutrin] Allergy (Intermediate, Verified 03/29/24 15:54) Hives, Rage varenicline [From Chantix] Allergy (Intermediate, Verified 03/29/24 15:54) Agitation, Aggression codeine [Codeine] Allergy (Mild, Verified 03/29/24 15:54) HIVES/ITCHING methadone [Methadone] Allergy (Mild, Verified 03/29/24 15:54) HIVES/ITCHING barium sulfate Allergy (Unknown, Verified 03/29/24 15:54) Unknown Black Pepper-Turmeric Allergy (Unknown, Uncoded 03/29/24 15:54) Unknown Medication List - Last Reconciled 03/29/24 by Sabina Colindres MD albuterol sulfate 90 mcg/actuation (Ventolin HFA) 2 puffs inhalation Q4-6H PRN apixaban (Eliquis) 5 mg PO BID atorvastatin 80 mg PO DAILY duloxetine 30 mg PO BEDTIME finasteride (Proscar) 5 mg PO DAILY lorazepam 0.5 mg PO BEDTIME PRN metoprolol succinate ER 12.5 mg PO DAILY Tobacco use date assessed: 03/29/24 Dental Screening Dental Screen Date: 03/29/24 Did you have a dental visit in the last 12 months?: No Did you have a dental problem in the last 6 months where you did not have access to dental care?: No Was dental information given to patient?: No (no teeth) HPI Coronary artery disease HPI Details 53-year-old overweight male smoker with COPD history of failed back syndrome BPH hypertension, hypercholesterolemia atherosclerotic heart disease with a history of cardiac arrest 2020 history of CVA 07/21/2023 cardiomyopathy obstructive sleep apnea BPH coming in for follow-up. Patient has been very anxious and has been taken 1 mg lorazepam every day as for other medications patient has been taking them regularly regarding Eliquis atorvastatin patient also has been using the Proscar for the prostate. For the blood pressure on metoprolol succinate 12.5 mg once a day is aware the blood pressure is on the low side. [facility] Medical History PATRICIA (obstructive sleep apnea) Cardiomyopathy Vertigo Stroke Cerebral infarction Hyperlipidemia History of TIA (transient ischemic attack) (~2013) History of cardiac arrest (~2019) Cardiac defibrillator in place Nonischemic cardiomyopathy Atherosclerotic cardiovascular disease Hypertension Hypercholesterolemia Restrictive lung disease COPD (chronic obstructive pulmonary disease) Cigarette nicotine dependence Nicotine dependence, cigarettes, uncomplicated Uncomplicated opioid dependence Chronic pain syndrome Rotator cuff arthropathy of both shoulders MRSA infection Surgical History History of implantable cardiac defibrillator (ICD) History of cardiac cath S/P insertion of spinal cord stimulator History of back surgery History of fusion of cervical spine History of repair of left rotator cuff History of repair of right rotator cuff History of cholecystectomy History of colonoscopy Family History Mother Multiple sclerosis Father Diabetes Amputat leg, bilat-complicated Sister Lupus Social History (Updated 03/29/24 @ 16:01 by SANJIV Sampson) Household Members: Family Housing: House Do you presently have visiting nurse or other home services: No Alcohol intake: never Patient Tobacco Use Status: Current everyday Tobacco user Tobacco use type: Cigarette, Cigar and Smokeless Tobacco Cigarette Packs Per Day: 0.50 Cigarettes Per Day: 3 Years Smoked: (onset 9yo, 1/2-3ppd x 42yrs, now <1/4ppd - 30+PYH) e-Cigarette/Vaping Use: Currently Using Second Hand Smoke Exposure: Yes service: No Cognitive needs: No Hearing needs: No Vision needs: No Questionnaire PHQ-9 Over the last 2 weeks, how often have you been bothered by any of the following problems? 1. Little interest or pleasure in doing things: not at all 2. Feeling down, depressed, or hopeless: not at all 3. Trouble falling or staying asleep, or sleeping too much: not at all 4. Feeling tired or having little energy: not at all 5. Poor appetite or overeating: not at all 6. Feeling bad about yourself - or that you are a failure or have let yourself or your family down: not at all 7. Trouble concentrating on things, such as reading the newspaper or watching television: not at all 8. Moving or speaking so slowly that other people could have noticed. Or the opposite - being so fidgety or restless that you have been moving around a lot more than usual: not at all 9. Thoughts that you would be better off or of hurting yourself in some way: not at all Total score: 0 Depression Screening Interpretation: Negative Depression Screening Done: Yes Source: Developed by Drs. King Macias, Melissa Aguilar, Mohan Lovett and colleagues, with an educational cosmo from [email or web address]. Thrive Questionnaire Date Thrive assessed: 03/29/24 I am a: Patient What is your living situation today?: I have a steady place to live Within the past 12 months, did the food you bought not last and you didn't have the money to get more?: Never true Within the past 12 months, did you worry whether your food would run out before you got money to buy more?: Never true Do you have trouble paying for medicines?: No Do you have trouble getting transportation to medical appointments?: No Do you have trouble paying your heating and electricity bill?: No Do you have trouble taking care of your child, family member or friend?: No Do you have trouble with day-to-day activities such as bathing, preparing meals, shopping, managing finances, etc.?: No Are you currently unemployed and looking for a job?: No Are you interested in more education?: No Please select the resources that you would like help with: None Currently or been in a relationship where the following occur: No concerns reported THRIVE Score: 0 AUDIT C Alcohol Use Questionnaire (AUDIT-C) 1. How often do you have a drink containing alcohol?: Never Total Score: 0 COLETTE-7 AMB Questionnaire COLETTE-7 Date COLETTE - 7 assessed: 03/29/24 Feeling nervous, anxious, or on edge: 3 = Nearly every day Not being able to stop or control worryin = Not at all Worrying too much about different things: 0 = Not at all Trouble relaxin = More than half the days Being so restless that it is hard to sit still: 2 = More than half the days Becoming easily annoyed or irritable: 2 = More than half the days Feeling afraid as if something awful might happen: 0 = Not at all Total COLETTE-7 score (0-4 normal; 5-9 mild; 10-14 moderate; 15-21 severe): 9 Source: Developed by Drs. King Macias, Melissa Aguilar, Mohan Lovett and colleagues, with an educational cosmo from [email or web address]. Physical exam (Primary Care) Vital Signs: Last Vital Signs Temp 97.3 F 03/29/24 15:55 Pulse 97 03/29/24 15:55 BP 100/68 03/29/24 15:55 Pulse Ox 99 03/29/24 15:55 Oxygen Delivery Method Room Air 03/29/24 15:55 BMI result Body Mass Index 28.0 Tobacco/Smoking Status: Tobacco use Status Tobacco use date assessed 03/29/24 03/29/24 16:03 Patient Tobacco Use Status Current everyday Tobacco 03/29/24 16:03 Tobacco use type Cigarette,Cigar,Smokeless 03/29/24 16:03 Tobacco e-Cigarette/Vaping Use Currently Using 03/29/24 16:03 PHQ-9: PHQ-9 Score PHQ-9: Total score 0 03/29/24 16:08 Depression Screening Interpretation: Negative Thrive Assessment: Date of Thrive Assessment Date Thrive assessed 03/29/24 03/29/24 16:03 Currently or been in a relationship where the following occur: No concerns reported Const General: alert; No acute distress Eyes Conjunctivae: conjunctivae normal Resp Auscultation: clear to auscultation bilaterally Cardio Rate: regular rate Rhythm: regular rhythm GI Inspection: Yes normal to inspection Extrem General: Yes normal to inspection and No edema Coding Level of Care Code Est Pt Level 4 (28222) Complex EM visit Add On G2211 Diagnoses Cardiomyopathy I42.9 Acute CVA (cerebrovascular accident) I63.9 Atherosclerotic cardiovascular disease I25.10 Primary hypertension I10 Hypertension type: primary hypertension Hypercholesterolemia E78.00 Pulmonary emphysema, unspecified emphysema type J43.9 COPD type: emphysema Emphysema type: unspecified Nicotine dependence, cigarettes, uncomplicated F17.210 BPH w/o urinary obs/LUTS N40.0 Generalized anxiety disorder F41.1 Assessment & Plan Assessment & Plan (1) Cardiomyopathy: Code(s): I42.9 - Cardiomyopathy, unspecified Category: Medical Plan: Continue with controlling the blood pressure and metoprolol 12.5 mg once a day (2) Acute CVA (cerebrovascular accident): Comment: 07/2023 Naun used He has had acute CVA in July of this year . Recovered from that Code(s): I63.9 - Cerebral infarction, unspecified Category: Medical Plan: Stable continue with anticoagulation with Eliquis reminded about blood work twice a day year for the renal function and liver function. (3) Atherosclerotic cardiovascular disease: Code(s): I25.10 - Atherosclerotic heart disease of [place] coronary artery without angina pectoris Category: Medical Plan: Control the cholesterol, weight, blood pressure, continue anticoagulation (4) Hypertension: Code(s): I10 - Essential (primary) hypertension Category: Medical Qualifiers: Hypertension type: primary hypertension Qualified Code(s): I10 - Essential (primary) hypertension Plan: Blood pressure on metoprolol 12.5 mg once a day. (5) Hypercholesterolemia: Code(s): E78.00 - Pure hypercholesterolemia, unspecified Category: Medical Plan: Discussed about cholesterol and on atorvastatin 80 mg once a day (6) COPD (chronic obstructive pulmonary disease): Comment: COPD secondary to ongoing smoking. However as per PFT, it is mild and his problem is mostly restrictive lung disease. Code(s): J44.9 - Chronic obstructive pulmonary disease, unspecified Category: Medical Qualifiers: COPD type: emphysema Emphysema type: unspecified Qualified Code(s): J43.9 - Emphysema, unspecified Plan: COPD controlled and taking albuterol as needed only. (7) Nicotine dependence, cigarettes, uncomplicated: Comment: (current smoker - onset 9yo, 1/2-3ppd x 42yrs, now <1/4ppd - 30+PYH) Code(s): F17.210 - Nicotine dependence, cigarettes, uncomplicated Category: Medical Plan: Long discussion with the patient on stopping smoking! (8) BPH w/o urinary obs/LUTS: Code(s): N40.0 - Benign prostatic hyperplasia without lower urinary tract symptoms Category: Medical Plan: Continue with Proscar (9) Generalized anxiety disorder: Code(s): F41.1 - Generalized anxiety disorder Category: Medical Plan: Continuing with duloxetine. Declined any counseling. Medications: New nitroglycerin do not exceed 3 doses per episode 0.4 mg sublingual Q5M PRN 20 tabs 0RF chest pain Lorenver O Po, I25.10 - Atherosclerotic heart disease of [place] coronary artery without angina pectoris Changed From metoprolol succinate ER 25 mg PO DAILY 90 tabs 1RF To metoprolol succinate ER 12.5 mg PO DAILY Dian M JOANNE Arias-C From lorazepam 0.5 mg PO BEDTIME PRN 14 tabs 0RF anxiety F41.1 - Generalized anxiety disorder To lorazepam 1 mg PO BEDTIME PRN 30 tabs 0RF anxiety F41.1 - Generalized anxiety disorder Lorenver O PoMD
[2024-03-29 15:55] VITALS: BP 100/68; PULSE 97; TEMP 36.3; O2SAT 99; BMI 28.0
== END 2024-03-29 16:27 | disposition home or self-care (01) ==
PROVIDERS: Visit Provider Internal Medicine
DX: I42.9 Cardiomyopathy, unspecified (principal); J43.9 Emphysema, unspecified; Z86.73 Personal history of transient ischemic attack (TIA), and cerebral infarction without residual deficits; I25.10 Atherosclerotic heart disease of native coronary artery without angina pectoris; I10 Essential (primary) hypertension; E78.00 Pure hypercholesterolemia, unspecified; F17.210 Nicotine dependence, cigarettes, uncomplicated; N40.0 Benign prostatic hyperplasia without lower urinary tract symptoms; F41.1 Generalized anxiety disorder

== ENCOUNTER → 2024-03-29 15:50 | Outpatient (BNVA) | payer MEDICARE, MEDICAID, SELFPAY | PROVIDERS: Visit Provider Internal Medicine | DX: I42.9 Cardiomyopathy, unspecified (principal); I63.9 Cerebral infarction, unspecified; I25.10 Atherosclerotic heart disease of native coronary artery without angina pectoris; I10 Essential (primary) hypertension; E78.00 Pure hypercholesterolemia, unspecified; J43.9 Emphysema, unspecified; N40.0 Benign prostatic hyperplasia without lower urinary tract symptoms; F41.1 Generalized anxiety disorder; F17.210 Nicotine dependence, cigarettes, uncomplicated; Z71.6 Tobacco abuse counseling | CPT/HCPCS: 99212 ==

== ENCOUNTER → 2024-04-20 23:59 | Outpatient (BNV) | payer MEDICARE, MEDICAID, SELFPAY ==
--- NOTE | 2024-04-24 19:20 | A.OFFVIS_ITS ---
Intake Visit Reasons: Remote ICD monitoring- Shaunna Scient Allergies bupropion [From Wellbutrin] Allergy (Intermediate, Verified 04/22/24 11:47) Hives, Rage varenicline [From Chantix] Allergy (Intermediate, Verified 04/22/24 11:47) Agitation, Aggression codeine [Codeine] Allergy (Mild, Verified 04/22/24 11:47) HIVES/ITCHING methadone [Methadone] Allergy (Mild, Verified 04/22/24 11:47) HIVES/ITCHING barium sulfate Allergy (Unknown, Verified 04/22/24 11:47) Unknown Black Pepper-Turmeric Allergy (Unknown, Uncoded 04/22/24 11:47) Unknown [facility] Medical History PATRICIA (obstructive sleep apnea) Cardiomyopathy Vertigo Stroke Cerebral infarction Hyperlipidemia History of TIA (transient ischemic attack) (~2013) History of cardiac arrest (~2019) Cardiac defibrillator in place Nonischemic cardiomyopathy Atherosclerotic cardiovascular disease Hypertension Hypercholesterolemia Restrictive lung disease COPD (chronic obstructive pulmonary disease) Cigarette nicotine dependence Nicotine dependence, cigarettes, uncomplicated Uncomplicated opioid dependence Chronic pain syndrome Rotator cuff arthropathy of both shoulders MRSA infection Surgical History History of implantable cardiac defibrillator (ICD) History of cardiac cath S/P insertion of spinal cord stimulator History of back surgery History of fusion of cervical spine History of repair of left rotator cuff History of repair of right rotator cuff History of cholecystectomy History of colonoscopy Family History Mother Multiple sclerosis Father Diabetes Amputat leg, bilat-complicated Sister Lupus Social History Household Members: Family Housing: House Do you presently have visiting nurse or other home services: No Alcohol intake: never Patient Tobacco Use Status: Current everyday Tobacco user Tobacco use type: Cigarette, Cigar and Smokeless Tobacco Cigarette Packs Per Day: 0.50 Cigarettes Per Day: 3 Years Smoked: (onset 9yo, 1/2-3ppd x 42yrs, now <1/4ppd - 30+PYH) e-Cigarette/Vaping Use: Currently Using Second Hand Smoke Exposure: Yes service: No Cognitive needs: No Hearing needs: No Vision needs: No Office Procedures Cardiac Device Check Cardiac Device Check Details: Date of service 04/20/2024; Battery life 12 years; normal lead parameters; no treated VT/VF; normal ICD function. [id number] Cardiac Interrogation, implant defibrillator w/interim Procedure code (CPT) selection complete Assessment & Plan Assessment & Plan (1) Cardiac defibrillator in place: Comment: (s/p cardiac arrest 2019) Code(s): Z95.810 - Presence of automatic (implantable) cardiac defibrillator Category: Medical (2) Cardiomyopathy: Code(s): I42.9 - Cardiomyopathy, unspecified Category: Medical Plan x Coding Level of Care Code Procedure Only Diagnoses Cardiac defibrillator in place Z95.810 Cardiomyopathy I42.9 CPT Codes Cardiac Device Check - Cardiac Device 13: [id number] Cardiac Interrogation, implant defibrillator w/interim ([id number])
== END ==
PROVIDERS: PCP Internal Medicine; Visit Provider Internal Medicine
DX: I42.9 Cardiomyopathy, unspecified (principal); Z95.810 Presence of automatic (implantable) cardiac defibrillator
CPT/HCPCS: 93295

== ENCOUNTER 2024-04-22 11:33 | Outpatient (AMB) | payer MEDICARE, MEDICAID, SELFPAY ==
[2024-04-22 11:35] VITALS: BP 104/70; PULSE 94; O2SAT 98; BMI 27.5
--- NOTE | 2024-04-22 11:35 | A.OFFVIS_ITS ---
Vital Signs 04/22/24 11:35 Height 6 ft 2 in Weight 213 lb 13.574 oz BMI 27.5 BP 104/70 Blood Pressure Location Lt brachial Position Sitting Pulse 94 Pulse Source Pulse Oximeter Pulse Oximetry (%) 98 Oxygen Delivery Method Room Air Intake Visit Reasons: COPD Intake Note: pt is here for PATRICIA follow up and would like a different mask, Photo Studio Assistant Required: No Allergies bupropion [From Wellbutrin] Allergy (Intermediate, Verified 04/22/24 11:47) Hives, Rage varenicline [From Chantix] Allergy (Intermediate, Verified 04/22/24 11:47) Agitation, Aggression codeine [Codeine] Allergy (Mild, Verified 04/22/24 11:47) HIVES/ITCHING methadone [Methadone] Allergy (Mild, Verified 04/22/24 11:47) HIVES/ITCHING barium sulfate Allergy (Unknown, Verified 04/22/24 11:47) Unknown Black Pepper-Turmeric Allergy (Unknown, Uncoded 04/22/24 11:47) Unknown Medication List - Last Reconciled 04/22/24 by Mare Escobar MD albuterol sulfate 90 mcg/actuation (Ventolin HFA) 2 puffs inhalation Q4-6H PRN apixaban (Eliquis) 5 mg PO BID atorvastatin 80 mg PO DAILY duloxetine 30 mg PO BEDTIME finasteride (Proscar) 5 mg PO DAILY lorazepam 1 mg PO BEDTIME PRN metoprolol succinate ER 12.5 mg PO DAILY nitroglycerin 0.4 mg sublingual Q5M PRN Do you need a note to return to daycare/school/sports/work: No HPI HPI COPD: Details: THIS 53 YEARS OLD GENTLEMAN IS HERE FOR FOLLOW-UP FOR HIS SLEEP APNEA. HE WAS STARTED ON CPAP WITH THE NASAL PILLOWS. HE HAS NOT BEEN ABLE TO USE IT BECAUSE OF NASAL CONGESTION. HE TRIED FOR 3-4 NIGHTS BUT COULD NOT USE FOR MORE THAN AN HOUR OR SO. MOST OF THE DISCUSSION WAS ABOUT HIS CHRONIC PAIN AND NOT ABLE TO GET ENOUGH MEDICATION FOR CONTROL OF PAIN. HE HAS LONGSTANDING HISTORY OF USING OPIOIDS( HYDROCODONE) BUT NOW HE CAN NOT GET THIS MEDICINE AND HE IS OFFERED ONLY TRAMADOL WHICH DOES NOT WORK. HE DID ADMIT THAT HE STILL BUYS HYDROCODONE ON THE STREET BUT CAN NOT AFFORD DUE TO HIGH [place]. THE PART OF THE REASON THAT HE CAN NOT GO TO SLEEP AT NIGHT IS BECAUSE OF HIS BACK PAIN. [facility] Medical History PATRICIA (obstructive sleep apnea) Cardiomyopathy Vertigo Stroke Cerebral infarction Hyperlipidemia History of TIA (transient ischemic attack) (~2013) History of cardiac arrest (~2019) Cardiac defibrillator in place Nonischemic cardiomyopathy Atherosclerotic cardiovascular disease Hypertension Hypercholesterolemia Restrictive lung disease COPD (chronic obstructive pulmonary disease) Cigarette nicotine dependence Nicotine dependence, cigarettes, uncomplicated Uncomplicated opioid dependence Chronic pain syndrome Rotator cuff arthropathy of both shoulders MRSA infection Surgical History History of implantable cardiac defibrillator (ICD) History of cardiac cath S/P insertion of spinal cord stimulator History of back surgery History of fusion of cervical spine History of repair of left rotator cuff History of repair of right rotator cuff History of cholecystectomy History of colonoscopy Family History Mother Multiple sclerosis Father Diabetes Amputat leg, bilat-complicated Sister Lupus Social History Household Members: Family Housing: House Do you presently have visiting nurse or other home services: No Alcohol intake: never Patient Tobacco Use Status: Current everyday Tobacco user Tobacco use type: Cigarette, Cigar and Smokeless Tobacco Cigarette Packs Per Day: 0.50 Cigarettes Per Day: 3 Years Smoked: (onset 9yo, 1/2-3ppd x 42yrs, now <1/4ppd - 30+PYH) e-Cigarette/Vaping Use: Currently Using Second Hand Smoke Exposure: Yes service: No Cognitive needs: No Hearing needs: No Vision needs: No Review of Systems Const All systems reviewed & are unremarkable except as noted in HPI and below Eyes Reports no additional complaints ENT Reports no additional complaints Card Denies chest pain at rest and Denies leg edema Resp Reports as per HPI GI Reports no additional complaints Reports no additional complaints Musc Reports no additional complaints Skin/Breast Reports system reviewed and no additional complaints, except as documented Neuro Reports no additional complaints Psych Reports no additional complaints Physical Exam Vital Signs: Last Vital Signs Pulse 94 04/22/24 11:35 BP 104/70 04/22/24 11:35 Pulse Ox 98 04/22/24 11:35 Oxygen Delivery Method Room Air 04/22/24 11:35 BMI result Body Mass Index 27.5 Const General: comfortable (Somewhat anxious), no acute distress, alert and awake Orientation/consciousness: patient oriented x3 HEENT Head: Yes normal to inspection General nose exam: No nasal polyps present and No nasal discharge present Face and sinus: Yes sinuses nontender Mouth: oropharynx normal Throat: Yes posterior oropharynx normal Eyes General: appearance normal, both eyes and all related structures Neck Neck: Yes normal visual inspection, Yes no lymphadenopathy, Yes trachea midline and Yes no JVD Thyroid: Thyroid normal Chest Chest palpation & inspection: normal inspection of the chest, normal palpation of entire chest wall and no tenderness Resp Other: Percussion note is resonant, breath sounds are slightly distant with prolonged expiratory phase. NO WHEEZES OR CREPITATIONS ARE HEARD. Cardio Palpation: normal PMI Rate: regular rate Rhythm: regular rhythm and other (Pacemaker battery in the left pectoral area) Heart sounds: no gallops and no murmurs GI Palpation (GI): Soft to palpation, nontender, No hepatosplenomegaly present and no masses Auscultation: normal bowel sounds Back/Spine/Pelvis Thoracic/Lumbar Spine: thoracic and lumbar spine normal to inspection and thoraco-lumbar ROM limited Skin Other: Extensive tattoos General skin exam: no rashes or lesions noted Neuro General: patient oriented x3 and no focal motor deficits Cranial nerves: Yes CN's II-XII intact bilaterally Extrem General: Yes normal to inspection, Yes no clubbing, cyanosis or edema and Yes no calf tenderness Psych Appearance: grossly normal and well kempt Speech and movement: Normal speech and movement present Results Reviewed Results Reviewed: COMPLIANCE REPORT IS REVIEWED AND HE USED FOR 9 NIGHTS WITH AVERAGE USAGE OF ONLY 1 HOURS 6 MINUTES. STILL HAS RESIDUAL AHI OF 13.5 Assessment & Plan Assessment & Plan (1) COPD (chronic obstructive pulmonary disease): Comment: COPD secondary to ongoing smoking. However as per PFT, it is mild and his problem is mostly restrictive lung disease. Code(s): J44.9 - Chronic obstructive pulmonary disease, unspecified Category: Medical Qualifiers: COPD type: emphysema Emphysema type: unspecified Qualified Code(s): J43.9 - Emphysema, unspecified Plan: USE ALBUTEROL HFA 2 PUFFS Q 4-6 HOURS ONLY P.R.N.. HE DOES NOT NEED TO USE ANY LONG ACTING INHALER. (2) Restrictive lung disease: Comment: PFT shows moderate degree of restrictive lung disorder. I think this is probably due to his advanced degenerative arthritis of the spine . He does not have evidence of interstitial lung disease. Explained to him and he is advised to do deep breathing exercises 2 or 3 times a day.. Code(s): J98.4 - Other disorders of lung Category: Medical Plan: TRY TO CONTROL WEIGHT AND ALSO TRY TO DO DEEP BREATHING EXERCISES AT LEAST 3 TIMES A DAY (3) PATRICIA (obstructive sleep apnea): Comment: Home-based sleep study in July 2023 was positive for sleep apnea. It was considered mild, but I think he continues to have symptoms of sleep apnea. In view of his multiple comorbidities, I decided to put him on CPAP, but he is having difficulty in using it. Code(s): G47.33 - Obstructive sleep apnea (adult) (pediatric) Category: Medical Plan: We gave him a fullface mask to try. He has to trim down his buitrago to avoid any air leakage. I explained to him and educated that it is important for him to use the CPAP. . He is going to try his past Coding Level of Care Code Est Pt Level 3 (71727) Diagnoses Pulmonary emphysema, unspecified emphysema type J43.9 COPD type: emphysema Emphysema type: unspecified Restrictive lung disease J98.4 PATRICIA (obstructive sleep apnea) G47.33
== END 2024-04-22 11:53 | disposition home or self-care (01) ==
LOC: HO.HPS 11:33
PROVIDERS: PCP Internal Medicine; Visit Provider Internal Medicine
DX: J43.9 Emphysema, unspecified (principal); J98.4 Other disorders of lung; G47.33 Obstructive sleep apnea (adult) (pediatric)
CPT/HCPCS: 99213

== ENCOUNTER → 2024-04-22 11:33 | Outpatient (BNVA) | payer MEDICARE, MEDICAID, SELFPAY | PROVIDERS: PCP Internal Medicine; Visit Provider Internal Medicine | DX: J43.9 Emphysema, unspecified (principal); J98.4 Other disorders of lung; G47.33 Obstructive sleep apnea (adult) (pediatric) | CPT/HCPCS: 99212 ==

== ENCOUNTER → 2024-05-04 13:03 | Outpatient (REF) | payer MEDICARE, MEDICAID, SELFPAY ==
--- NOTE | 2024-05-04 13:06 | CA_ITS ---
Transthoracic Echocardiogram Patient (Last, First, Middle): Daniel Agarwal A Gender: Male Date of : 1970 Age: 53 Procedure Date: 05/04/2024 Procedure Type: Transthoracic Echocardiogram Location: OP Height: 187.96 cm Weight: 97.98 kg BSA: 2.25 m2 Heart Rate: bpm BP: 110 / 70 mmHg Rubber Goods Cutter Finisher: GISSEL Referring MD: Gunnar Tate MD Photography Colorist: Glenn Ramos MD Symptoms: I42.8 - Other cardiomyopathies Study Quality: Technically Difficult ECG Rhythm: Sinus Conclusions: - 1. Dilated left ventricular cavity with moderately reduced LV ejection fraction of 35-40% with impaired relaxation filling pattern 2. Cardiac valvular Dopplers within normal limits 3. Normal RV systolic pressure Findings Procedure Information Contrast agent, definity, is being given per protocol without apparent complications. Left Ventricle Mildly increased left ventricular cavity size. There is normal left ventricular wall thickness. The left ventricular systolic function is moderately decreased. The visually estimated ejection fraction is between 35 40%. There is moderate global hypokinesis. Spectral Doppler is indicative of an impaired relaxation filling pattern. E/E prime ratio is between 8 and 15 consistent with indeterminate filling pressures. Right Ventricle Normal right ventricular cavity size and systolic function. There is an ICD wire seen in the right ventricle. Atria The left atrium is mildly dilated. Interatrial shunt cannot be excluded. The right atrium is normal in size. Aortic Valve The aortic valve was not well visualized. There is no aortic valve stenosis. There is no aortic valve regurgitation. Mitral Valve The mitral valve was not well visualized. There is trace mitral valve regurgitation. There is no mitral valve stenosis. Pulmonic Valve The pulmonic valve was not well visualized. Tricuspid Valve Likely normal tricuspid valve structure and function. There is trace tricuspid valve regurgitation. The right ventricular systolic pressure is normal. The right ventricular systolic pressure is 22 mmHg. Normal right atrial pressure. There is no evidence of pulmonary hypertension. Great Vessels All visible segments of the aorta are normal in size. The pulmonary artery was not well visualized. There is no dilatation of the ascending aorta measuring 3.40 cm. Venous The inferior vena cava is normal in size and collapses greater than 50% with inspiration. Pericardium/Pleural The pericardium was not well visualized. Prior Study Comparison No significant change compared to prior study dated: 02/24/2024. Measurements 2D Linear Measurements IVSd: 0.99 0.6-0.9/0.6-1.0 cm LVIDd: 5.62 3.9-5.3/4.2-5.9 cm LVIDd Index: 2.50 2.4-3.2/2.2-3.1 cm/m2 LVIDs: 4.52 2.0-3.6 cm LVPWd: 0.98 0.7-1.1 cm LA Diam: 4.00 2.7-3.8/3.0-4.0 cm LAIDs Index: 1.78 1.5-2.3 cm/m2 LV Mass: 269.05 67-162/88-224 g LV Mass Index: 119.58 43-95/49-115 g/m2 LVOT Diam: 2.30 3.0+(-)1.3 cm 2D Systolic Function EF 4C: 31.00 >55% EF 2C: 42.10 >55% EF BiP: 37.10 >55% Mitral Valve MV Pk E: 0.84 MV PK A: 0.84 MV Decel Time: 172.00 E/A: 1.00 E'Lateral: 8.59 E'Medial: 6.74 E/E' Med: 12.50 E/E' Lat: 9.80 PHT: 50.00 MVA PHT: 4.40 Decel [place]: 4.89 Aortic Valve AoV Pk Prabhakar: 1.53 AoV Mn Prabhakar: 1.13 AoV VTI: 0.30 AoV Pk Grad: 9.00 Aov Mn Grad: 6.00 SERGEI Cont.VTI: 2.25 LVOT LVOT Pk Prabhakar: 0.86 LVOT Mn Prabhakar: 0.57 LVOT VTI: 0.16 LVOT Pk Grad: 3.00 LVOT Mn Grad: 1.00 LVOT Diam: 2.30 LVOT Area: 4.15 Diastolic Function MV Pk E: 0.84 MV Pk A: 0.84 E/A: 1.00 E'Medial: 6.74 E/E' Med: 12.50 E' Laterial: 8.59 E/E' Lat: 9.80 Right Ventricle TAPSE (mm): 18.00 TVS' Prabhakar: 9.14 Tricuspid Valve TR Pk Prabhakar: 2.16 TR Pk Grad: 19.00 RA Press: 3.00 RVSP: 22.00 Great Vessels Aorta Sinus of Valsalva: 3.15 2.0-3.5 cm Ao Asc: 3.40 2.1-3.4 cm Updated in Other Vendor System with Status of Final Glenn Ramos MD electronically signed on 05/05/2024 3:02:28 PM with status of Final
== END ==
LOC: HO.CARD 13:03
PROVIDERS: PCP Internal Medicine; Visit Provider Internal Medicine
DX: I42.8 Other cardiomyopathies (principal)
CPT/HCPCS: 93306; Q9957

== ENCOUNTER → 2024-05-04 13:06 | Outpatient (BNV) | payer MEDICARE, MEDICAID, SELFPAY | PROVIDERS: PCP Internal Medicine; Visit Provider Internal Medicine Cardiovascular Disease | DX: I42.8 Other cardiomyopathies (principal) | CPT/HCPCS: 93306 ==

== ENCOUNTER 2024-05-17 13:27 | Outpatient (AMB) | payer MEDICARE, MEDICAID, SELFPAY ==
[2024-05-17 13:38] VITALS: BP 100/60; PULSE 82; BMI 26.5
--- NOTE | 2024-05-17 13:38 | A.OFFVIS_ITS ---
Vital Signs 05/17/24 13:38 Height 6 ft 3 in Weight 211 lb 10.3 oz BMI 26.5 BP 100/60 Blood Pressure Location Lt brachial Position Sitting Pulse 82 Pulse Source Pulse Oximeter Intake Visit Reasons: follow up after echo Allergies bupropion [From Wellbutrin] Allergy (Intermediate, Verified 05/17/24 15:31) Hives, Rage varenicline [From Chantix] Allergy (Intermediate, Verified 05/17/24 15:31) Agitation, Aggression codeine [Codeine] Allergy (Mild, Verified 05/17/24 15:31) HIVES/ITCHING methadone [Methadone] Allergy (Mild, Verified 05/17/24 15:31) HIVES/ITCHING barium sulfate Allergy (Unknown, Verified 05/17/24 15:31) Unknown Black Pepper-Turmeric Allergy (Unknown, Uncoded 05/17/24 15:31) Unknown Medication List - Last Reconciled 05/17/24 by Gunnar Tate MD albuterol sulfate 90 mcg/actuation (Ventolin HFA) 2 puffs inhalation Q4-6H PRN apixaban (Eliquis) 5 mg PO BID atorvastatin 80 mg PO DAILY duloxetine 30 mg PO BEDTIME finasteride (Proscar) 5 mg PO DAILY lorazepam 1 mg PO BEDTIME PRN nitroglycerin 0.4 mg sublingual Q5M PRN HPI Comments Details: Daniel returns for follow-up. He carries a diagnosis of nonischemic cardiomyopathy. He was maintained on Coreg and lisinopril. Then he went to custodial. While in custodial he had a cardiac arrest-2019. Described as VT/VF. Then diagnosed with STEMI and underwent cardiac catheterization but there was no culprit lesion. Had ICD placed. In 07/2023, he was admitted for left-sided numbness/weakness. He was treated as acute stroke. He underwent thrombolytic treatment and after that, it seems his symptoms resolved completely. Then Eliquis was added to aspirin. Then discharged home. Then having low blood pressure issues and lot of his cardiac medications were stopped. After that, another hospitalization when he was transferred to [facility] for concerns of shortness of breath/atypical chest pains. Repeat catheterization but no significant findings. [facility] Medical History PATRICIA (obstructive sleep apnea) Cardiomyopathy Vertigo Stroke Cerebral infarction Hyperlipidemia History of TIA (transient ischemic attack) (~2013) History of cardiac arrest (~2019) Cardiac defibrillator in place Nonischemic cardiomyopathy Atherosclerotic cardiovascular disease Hypertension Hypercholesterolemia Restrictive lung disease COPD (chronic obstructive pulmonary disease) Cigarette nicotine dependence Nicotine dependence, cigarettes, uncomplicated Uncomplicated opioid dependence Chronic pain syndrome Rotator cuff arthropathy of both shoulders MRSA infection Surgical History History of implantable cardiac defibrillator (ICD) History of cardiac cath S/P insertion of spinal cord stimulator History of back surgery History of fusion of cervical spine History of repair of left rotator cuff History of repair of right rotator cuff History of cholecystectomy History of colonoscopy Family History Mother Multiple sclerosis Father Diabetes Amputat leg, bilat-complicated Sister Lupus Social History Household Members: Family Housing: House Do you presently have visiting nurse or other home services: No Alcohol intake: never Patient Tobacco Use Status: Current everyday Tobacco user Tobacco use type: Cigarette, Cigar and Smokeless Tobacco Cigarette Packs Per Day: 0.50 Cigarettes Per Day: 3 Years Smoked: (onset 9yo, 1/2-3ppd x 40yrs, now <1/4ppd - 30+PYH) e-Cigarette/Vaping Use: Currently Using Second Hand Smoke Exposure: Yes service: No Cognitive needs: No Hearing needs: No Vision needs: No Review of Systems Const Denies weakness ENT Denies dizziness Card Denies chest pain, Denies chest pain with activity, Denies syncope, Denies rapid heart rate, Denies pedal edema, Denies edema, Denies leg edema, Denies lightheadedness, Denies palpitations, Denies dyspnea, Denies dyspnea on exertion and Denies orthopnea Resp Denies cough, Denies dyspnea and Denies dyspnea on exertion GI Denies hematochezia and Denies change in stool character Musc Denies abnormal gait, Denies muscle cramps, Denies muscle weakness, Denies numbness, Denies radiating pain into limb and Denies tingling Neuro Denies abnormal gait, Denies dizziness, Denies syncope, Denies numbness, Denies tingling and Denies weakness Endo Denies palpitations Physical Exam Vital Signs: Last Vital Signs Pulse 82 05/17/24 13:38 BP 100/60 05/17/24 13:38 BMI result Body Mass Index 26.5 Const General: comfortable and no acute distress Orientation/consciousness: patient oriented x3 HEENT Other: Unremarkable Head: Yes normal to inspection Neck Neck: Yes normal visual inspection Chest Chest palpation & inspection: normal inspection of the chest Resp Auscultation: clear to auscultation bilaterally Cardio Palpation: normal PMI Heart sounds: S1 normal heart sound present, S2 normal heart sound present, no gallops, no murmurs and no rubs GI Palpation (GI): Soft to palpation Back/Spine/Pelvis Other: unremarkable Skin General skin exam: no rashes or lesions noted Neuro General: patient oriented x3 Extrem General: Yes normal to inspection Psych Mental Status: mental status grossly normal Assessment & Plan Assessment & Plan (1) Nonischemic cardiomyopathy: Code(s): I42.8 - Other cardiomyopathies Category: Medical Plan: In the most recent echocardiogram from 05/2024, LVEF is 35-40%. In the cardiac catheterization from 03/2023-ostial 30% stenosis in the LAD; normal left main and minimal irregularities elsewhere. Normal LVEDP. Pulmonary capillary wedge pressure 30 mm Hg. RA of 8 mm Hg. PA mean 20 mm Hg. Hence his symptoms of shortness of breath/chest pain thought to be noncardiac. Not able to tolerate any cardiac medications because of low blood pressure/dizziness. (2) Atherosclerotic cardiovascular disease: Code(s): I25.10 - Atherosclerotic heart disease of [place] coronary artery without angina pectoris Category: Medical Plan: Clinically no angina. On statins. Last LDL 67 mg/dL. (3) Cardioembolic stroke: Code(s): I63.9 - Cerebral infarction, unspecified Category: Medical Plan: On Eliquis. (4) Arterial hypotension: Code(s): I95.9 - Hypotension, unspecified Category: Medical Plan: Off Coreg, lisinopril, spironolactone. If necessary, consider midodrine in the future. (5) Ventricular arrhythmia: Code(s): I49.9 - Cardiac arrhythmia, unspecified Category: Medical Plan: Concern for NSVT versus supraventricular related arrhythmias on remote device ch nargis. As it a single-chamber device, awaiting Holter monitor for further evaluation to help with differentiation. Coding Level of Care Code Est Pt Level 4 (57685) Complex EM visit Add On G2211 Diagnoses Nonischemic cardiomyopathy I42.8 Atherosclerotic cardiovascular disease I25.10 Cardioembolic stroke I63.9 Arterial hypotension I95.9 Ventricular arrhythmia I49.9
== END 2024-05-17 13:51 | disposition home or self-care (01) ==
LOC: HO.HCS 13:27
PROVIDERS: Visit Provider Internal Medicine
DX: I42.8 Other cardiomyopathies (principal); I25.10 Atherosclerotic heart disease of native coronary artery without angina pectoris; I63.9 Cerebral infarction, unspecified; I95.9 Hypotension, unspecified; I49.9 Cardiac arrhythmia, unspecified
CPT/HCPCS: 99214; G2211

== ENCOUNTER → 2024-05-17 13:27 | Outpatient (BNVA) | payer MEDICARE, MEDICAID, SELFPAY | PROVIDERS: Visit Provider Internal Medicine | DX: M54.2 Cervicalgia (principal); R20.0 Anesthesia of skin; Z86.73 Personal history of transient ischemic attack (TIA), and cerebral infarction without residual deficits; I42.8 Other cardiomyopathies; I25.10 Atherosclerotic heart disease of native coronary artery without angina pectoris; I95.9 Hypotension, unspecified; I49.9 Cardiac arrhythmia, unspecified; I25.2 Old myocardial infarction; Z86.74 Personal history of sudden cardiac arrest; Z79.01 Long term (current) use of anticoagulants; Z79.82 Long term (current) use of aspirin | CPT/HCPCS: 99212 ==

== ENCOUNTER 2024-05-17 15:26 | Outpatient (AMB) | payer MEDICARE, MEDICAID, SELFPAY ==
--- NOTE | 2024-05-17 15:29 | A.OFFPC_ITS ---
Vital Signs 05/17/24 15:30 05/17/24 15:31 Height 6 ft 2 in 6 ft 2 in Weight 212 lb 2 oz BMI 27.2 BP 110/62 Blood Pressure Location Lt brachial Lt brachial Position Sitting Sitting Pulse 60 Pulse Source Pulse Oximeter Pulse Oximeter Temp 96.9 F Temp Source Temporal Artery Scan Pulse Oximetry (%) 99 Oxygen Delivery Method Room Air Room Air Intake Visit Reasons: weak RT hand/no feeling on pinky/ring finger Intake Note: Patient is here to follow up on weak left hand, no feeling on pinky and ring finger. Obstetrician And Gynaecologist Required: No Machine Bunch Maker: Not Required per policy Accompanied by: Self / Same As Patient Allergies bupropion [From Wellbutrin] Allergy (Intermediate, Verified 05/17/24 15:40) Hives, Rage varenicline [From Chantix] Allergy (Intermediate, Verified 05/17/24 15:40) Agitation, Aggression codeine [Codeine] Allergy (Mild, Verified 05/17/24 15:40) HIVES/ITCHING methadone [Methadone] Allergy (Mild, Verified 05/17/24 15:40) HIVES/ITCHING barium sulfate Allergy (Unknown, Verified 05/17/24 15:40) Unknown Black Pepper-Turmeric Allergy (Unknown, Uncoded 05/17/24 15:40) Unknown Medication List - Last Reconciled 05/17/24 by Guillermina Lowery PA-C albuterol sulfate 90 mcg/actuation (Ventolin HFA) 2 puffs inhalation Q4-6H PRN apixaban (Eliquis) 5 mg PO BID atorvastatin 80 mg PO DAILY duloxetine 30 mg PO BEDTIME finasteride (Proscar) 5 mg PO DAILY lorazepam 1 mg PO BEDTIME PRN nitroglycerin 0.4 mg sublingual Q5M PRN Tobacco use date assessed: 05/17/24 Dental Screening Dental Screen Date: 03/29/24 HPI weak RT hand/no feeling on pinky/ring finger HPI Details 53-year-old male past medical history of COPD, post-laminectomy syndrome, BPH, nicotine dependence, hypercholesterolemia, hypertension, coronary artery disease with history of CVA, cardiomyopathy, obstructive sleep apnea last seen 03/2024 coming in for acute problem. In review of the notes, patient was seen by Cardiology today 05/17/2024 waiting Holter monitor for further evaluation of NSVT. Presenting with neck pain and associated numbness and weakness in the upper extremities. The neck pain initiated two weeks prior with sudden stiffness and discomfort upon awakening. The patient applied hot treatment modalities that afforded mild relief but failed to alleviate symptoms completely. There is continuous numbness with tingling affecting two fingers, coupled with difficulty in hand function, specifically in opening the hand and diminished strength noted since the neck pain onset. The patient does not cite any accidental trauma but reported extensive history of spinal surgeries, including multiple neck and back operations. The neck pain is tolerable presently; however, the numbness persists without significant change. [facility] Medical History PATRICIA (obstructive sleep apnea) Cardiomyopathy Vertigo Stroke Cerebral infarction Hyperlipidemia History of TIA (transient ischemic attack) (~2013) History of cardiac arrest (~2019) Cardiac defibrillator in place Nonischemic cardiomyopathy Atherosclerotic cardiovascular disease Hypertension Hypercholesterolemia Restrictive lung disease COPD (chronic obstructive pulmonary disease) Cigarette nicotine dependence Nicotine dependence, cigarettes, uncomplicated Uncomplicated opioid dependence Chronic pain syndrome Rotator cuff arthropathy of both shoulders MRSA infection Surgical History History of implantable cardiac defibrillator (ICD) History of cardiac cath S/P insertion of spinal cord stimulator History of back surgery History of fusion of cervical spine History of repair of left rotator cuff History of repair of right rotator cuff History of cholecystectomy History of colonoscopy Family History Mother Multiple sclerosis Father Diabetes Amputat leg, bilat-complicated Sister Lupus Social History Household Members: Family Housing: House Do you presently have visiting nurse or other home services: No Alcohol intake: never Patient Tobacco Use Status: Current everyday Tobacco user Tobacco use type: Cigarette, Cigar and Smokeless Tobacco Cigarette Packs Per Day: 0.50 Cigarettes Per Day: 3 Years Smoked: (onset 9yo, 1/2-3ppd x 40yrs, now <1/4ppd - 30+PYH) e-Cigarette/Vaping Use: Currently Using Second Hand Smoke Exposure: Yes service: No Cognitive needs: No Hearing needs: No Vision needs: No Questionnaire Thrive Questionnaire Date Thrive assessed: 03/29/24 COLETTE-7 AMB Questionnaire COLETTE-7 Date COLETTE - 7 assessed: 03/29/24 Source: Developed by Drs. King Macias, Melissa Aguilar, Mohan Lovett and colleagues, with an educational cosmo from [employer]. Review of Systems Const Denies body aches, Denies chills, Denies fever(s) and Denies poor appetite Eyes Reports no additional complaints ENT Reports no additional complaints Card Denies chest pain and Denies dyspnea Resp Denies dyspnea GI Reports no additional complaints Reports no additional complaints Musc Reports as per HPI and Denies abnormal gait Skin/Breast Reports system reviewed and no additional complaints, except as documented Neuro Denies abnormal gait Psych Reports no additional complaints Physical exam (Primary Care) Vital Signs: Last Vital Signs Temp 96.9 F 05/17/24 15:31 Pulse 60 05/17/24 15:31 BP 110/62 05/17/24 15:31 Pulse Ox 99 05/17/24 15:31 Oxygen Delivery Method Room Air 05/17/24 15:31 BMI result Body Mass Index 27.2 Tobacco/Smoking Status: Tobacco use Status Tobacco use date assessed 05/17/24 05/17/24 15:31 Patient Tobacco Use Status Current everyday Tobacco 05/17/24 15:31 Tobacco use type Cigarette,Cigar,Smokeless 05/17/24 15:31 Tobacco e-Cigarette/Vaping Use Currently Using 05/17/24 15:31 Thrive Assessment: Date of Thrive Assessment Date Thrive assessed 03/29/24 05/17/24 15:31 Const General: cooperative, healthy appearing, comfortable and no acute distress Orientation/consciousness: patient oriented x3 HENMT Other: tenderness to palpation over cervical spine and paraspinal muscles Head: Yes normocephalic Ears: hearing grossly normal bilaterally General nose exam: Normal external nose present Eyes General: appearance normal, both eyes and all related structures Conjunctivae: conjunctivae normal Pupils: Equal, round and reactive pupils present EOM: No Nystagmus present Neck Neck: Yes full ROM and Yes no lymphadenopathy Resp Effort & Inspection: normal respiratory effort Auscultation: clear to auscultation bilaterally, no crackles, no rales, no rhonchi and no wheezes Cardio Rate: regular rate Rhythm: regular rhythm Skin General skin exam: no rashes or lesions noted Neuro General: patient oriented x3 Cranial nerves: Yes CN's II-XII intact bilaterally, Yes Facial sensation intact/muscles of mastication intact, Yes Equal, round and reactive pupils present, Yes Bilaterally intact EOM present, Yes Normal facial strength present, Yes Midline tongue present, Yes Ability to bilaterally rotate head present, Yes Ability to bilaterally elevate shoulders present and No Nystagmus present Gait exam (Neuro): Normal gait present Extrem Other: intact sensation and pulses in bilateral UE. Patient has good strenfth in the left hand and mildly reducued strength in the left hand General: Yes normal to inspection, Yes full ROM and No edema Psych Affect: normal affect Attitude: cooperative Insight: Good insight present (Psych) Judgement: Good judgement present (Psych) Coding Level of Care Code Est Pt Level 4 (99210) Diagnoses Neck pain M54.2 Numbness of left hand R20.0 Acute CVA (cerebrovascular accident) I63.9 Assessment & Plan Assessment & Plan (1) Neck pain: Code(s): M54.2 - Cervicalgia Category: Medical Plan: The approach to address cervicalgia with associated upper extremity dysfunction will include a nerve conduction study to evaluate nerve compression, and physical therapy is advised to mitigate symptoms and restore hand functionality. Referral to a neurology specialist is initiated in light of the patient's history of stroke and motor disturbances. Tizanidine is prescribed to manage neck stiffness and associated pain. Follow-up will include ongoing assessment of symptom improvement with physical therapy and potential further diagnostics based on initial therapeutic response. (2) Numbness of left hand: Code(s): R20.0 - Anesthesia of skin Category: Medical Plan: Nerve conduction study to evaluate nerve compression, and physical therapy is advised to mitigate symptoms and restore hand functionality. Consideration of carpal tunnel syndrome is suggested, and the use of night splints is recommended to alleviate symptoms potentially caused by nerve impingement. (3) Acute CVA (cerebrovascular accident): Comment: 07/2023 Naun used He has had acute CVA in July of this year . Recovered from that Code(s): I63.9 - Cerebral infarction, unspecified Category: Medical Plan: Patient has a history of CVA he did initially have a neurologist however has not seen his provider in over 1 year. Referral was placed to [facility] for history of CVA and new onset neurologic symptoms. On exam today patient is neurovascularly intact and low suspicion for acute CVA. I did discuss with patient red flag symptoms and when to present for re- evaluation. Plan This note was constructed using voice recognition software. While every effort has been made to ensure accuracy and industrial safety engineer, still areas may have been included sometimes these areas may affect the content or meeting of the given symptoms. Total time spent caring for the patient today was 20 minutes. This includes time spent before the visit reviewing the chart, time spent during the visit, and time spent after the visit and documentation. Patient was informed and verbally consented to the use of an ambient scribe for clinic note documentation during this visit. Orders: Orders NE electromyogram (EMG) Today R20.0 - Anesthesia of skin PT Evaluation and Treatment Today M54.2 - Cervicalgia, R20.0 - Anesthesia of skin Referrals Neurology Referral I63.9 - Cerebral infarction, unspecified, R20.0 - Anesthesia of skin Medications: New tizanidine 2 mg PO Q8H PRN 30 caps 0RF muscle spasticity
[2024-05-17 15:31] VITALS: BP 110/62; PULSE 60; TEMP 36.1; O2SAT 99; BMI 27.2
== END 2024-05-17 16:00 | disposition home or self-care (01) ==
LOC: HO.HMCH 15:26
PROVIDERS: PCP Internal Medicine
DX: M54.2 Cervicalgia (principal); R20.0 Anesthesia of skin; I63.9 Cerebral infarction, unspecified

== ENCOUNTER → 2024-05-21 11:14 | Outpatient (REF) | payer MEDICARE, MEDICAID, SELFPAY | LOC: HO.CARD 11:14 | PROVIDERS: PCP Internal Medicine; Visit Provider Nurse Practitioner Family | DX: I47.29 Other ventricular tachycardia (principal) | CPT/HCPCS: 93246 ==

== ENCOUNTER → 2024-05-21 11:17 | Outpatient (BNV) | payer MEDICARE, MEDICAID, SELFPAY | PROVIDERS: PCP Internal Medicine; Visit Provider Internal Medicine | DX: I47.10 Supraventricular tachycardia, unspecified (principal); I49.3 Ventricular premature depolarization | CPT/HCPCS: 93248 ==

== ENCOUNTER 2024-05-25 08:45 | Outpatient (REF) | payer MEDICARE, MEDICAID, SELFPAY ==
--- NOTE | 2024-05-25 08:46 | EMG_ITS ---
Left median and ulnar motor and sensory studies were performed. Left radial sensory study was performed. Paraspinal muscles were tested with a needle. IMPRESSION: 1. Mild left median neuropathy across carpal tunnel. 2. 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 3. Chronic left mid cervical radiculopathy. MD NOYR Weller/LEON / [id number]
== END 2024-05-25 08:46 | disposition home or self-care (01) ==
LOC: HO.NEURO 08:45
PROVIDERS: PCP Internal Medicine
DX: R20.0 Anesthesia of skin (principal)
CPT/HCPCS: 95886; 95909

== ENCOUNTER 2024-05-28 14:17 | Outpatient (AMB) | payer MEDICARE, MEDICAID, SELFPAY ==
--- NOTE | 2024-05-28 14:24 | MHC.PC.OV ---
Vital Signs 05/28/24 14:25 Height 6 ft 2 in Weight 214 lb 8 oz BMI 27.5 BP 130/70 Blood Pressure Location Lt brachial Position Sitting Pulse 104 H Pulse Source Pulse Oximeter Temp 96.6 F L Temp Source Temporal Artery Scan Pulse Oximetry (%) 97 Oxygen Delivery Method Room Air Intake Visit Reasons: Feeling on some of his fingers/PT order request Intake Note: Patient is here to follow up on nerve testing results on 05/25/24 Mechanics Supervisor Required: No Seismic Survey Assistant: Not Required per policy Accompanied by: Self / Same As Patient Allergies bupropion [From Wellbutrin] Allergy (Intermediate, Verified 05/28/24 14:41) Hives, Rage varenicline [From Chantix] Allergy (Intermediate, Verified 05/28/24 14:41) Agitation, Aggression codeine [Codeine] Allergy (Mild, Verified 05/28/24 14:41) HIVES/ITCHING methadone [Methadone] Allergy (Mild, Verified 05/28/24 14:41) HIVES/ITCHING barium sulfate Allergy (Unknown, Verified 05/28/24 14:41) Unknown Black Pepper-Turmeric Allergy (Unknown, Uncoded 05/28/24 14:41) Unknown Medication List - Last Reconciled 05/28/24 by Guillermina Lowery PA-C albuterol sulfate 90 mcg/actuation (Ventolin HFA) 2 puffs inhalation Q4-6H PRN apixaban (Eliquis) 5 mg PO BID atorvastatin 80 mg PO DAILY duloxetine 30 mg PO BEDTIME finasteride (Proscar) 5 mg PO DAILY lorazepam 1 mg PO BEDTIME PRN nitroglycerin 0.4 mg sublingual Q5M PRN tizanidine 2 mg PO Q8H PRN Tobacco use date assessed: 05/28/24 Dental Screening Dental Screen Date: 03/29/24 HPI Feeling on some of his fingers/PT order request HPI Details 53-year-old male past medical history of COPD, post-laminectomy syndrome, BPH, nicotine dependence, hypercholesterolemia, hypertension, coronary artery disease with history of CVA, cardiomyopathy, obstructive sleep apnea last seen 05/2024 coming in for follow up on acute problem. Presenting with carpal tunnel syndrome, ulnar neuropathy and cervical radiculopathy. Symptoms include numbness affecting specific fingers attributable to carpal and cubital tunnel syndromes. Previous attempts with physical therapy noted but ineffectual; symptoms remain bothersome. Notable surgical history includes multiple back and neck interventions, knee revision, as well as cervical spine instrumentation. Previously managed with high-dose narcotics, recent ineffectiveness of gabapentin reported. Historical diagnoses confirm mild carpal tunnel, moderate ulnar neuropathy, and cervical radiculopathy. [facility] Medical History Cervical radiculopathy PATRICIA (obstructive sleep apnea) Cardiomyopathy Vertigo Stroke Cerebral infarction Hyperlipidemia History of TIA (transient ischemic attack) (~2013) History of cardiac arrest (~2019) Cardiac defibrillator in place Nonischemic cardiomyopathy Atherosclerotic cardiovascular disease Hypertension Hypercholesterolemia Restrictive lung disease COPD (chronic obstructive pulmonary disease) Cigarette nicotine dependence Nicotine dependence, cigarettes, uncomplicated Uncomplicated opioid dependence Chronic pain syndrome Rotator cuff arthropathy of both shoulders MRSA infection Surgical History History of implantable cardiac defibrillator (ICD) History of cardiac cath S/P insertion of spinal cord stimulator History of back surgery History of fusion of cervical spine History of repair of left rotator cuff History of repair of right rotator cuff History of cholecystectomy History of colonoscopy Family History Mother Multiple sclerosis Father Diabetes Amputat leg, bilat-complicated Sister Lupus Social History Household Members: Family Housing: House Do you presently have visiting nurse or other home services: No Alcohol intake: never Patient Tobacco Use Status: Current everyday Tobacco user Tobacco use type: Cigarette, Cigar and Smokeless Tobacco Cigarette Packs Per Day: 0.50 Cigarettes Per Day: 3 Years Smoked: (onset 9yo, 1/2-3ppd x 40yrs, now <1/4ppd - 30+PYH) Packs Per Year: 0 Packs per year/per ci.00 e-Cigarette/Vaping Use: Currently Using Second Hand Smoke Exposure: Yes service: No Cognitive needs: No Hearing needs: No Vision needs: No Questionnaire Thrive Questionnaire Date Thrive assessed: 03/29/24 COLETTE-7 AMB Questionnaire COLETTE-7 Date COLETTE - 7 assessed: 03/29/24 Source: Developed by Drs. King Macias, Melissa Aguilar, Mohan Lovett and colleagues, with an educational cosmo from [employer] ([employer]). Review of Systems Const Denies body aches, Denies chills and Denies fever(s) Eyes Reports no additional complaints ENT Denies dizziness Card Denies chest pain, Denies lightheadedness and Denies dyspnea Resp Denies dyspnea Reports no additional complaints Musc Reports no additional complaints and Denies abnormal gait Skin/Breast Reports system reviewed and no additional complaints, except as documented Neuro Details: neck pain with radiating nerve pain and tingling Denies abnormal gait and Denies dizziness Psych Reports no additional complaints Physical exam (Primary Care) Vital Signs: Last Vital Signs Temp 96.6 F L 05/28/24 14:25 Pulse 104 H 05/28/24 14:25 BP 130/70 05/28/24 14:25 Pulse Ox 97 05/28/24 14:25 Oxygen Delivery Method Room Air 05/28/24 14:25 BMI result Body Mass Index 27.5 Tobacco/Smoking Status: Tobacco use Status Tobacco use date assessed 05/28/24 05/28/24 14:28 Patient Tobacco Use Status Current everyday Tobacco 05/28/24 14:28 Tobacco use type Cigarette,Cigar,Smokeless 05/28/24 14:28 Tobacco e-Cigarette/Vaping Use Currently Using 05/28/24 14:28 Thrive Assessment: Date of Thrive Assessment Date Thrive assessed 03/29/24 05/28/24 14:28 Const General: cooperative, healthy appearing, comfortable and no acute distress Orientation/consciousness: patient oriented x3 HENMT Head: Yes normocephalic Ears: hearing grossly normal bilaterally General nose exam: Normal external nose present Eyes General: appearance normal, both eyes and all related structures Conjunctivae: conjunctivae normal Neck Neck: Yes full ROM and Yes no lymphadenopathy Resp Effort & Inspection: normal respiratory effort Auscultation: clear to auscultation bilaterally, no crackles, no rales, no rhonchi and no wheezes Cardio Rate: regular rate Rhythm: regular rhythm Skin General skin exam: no rashes or lesions noted Neuro General: patient oriented x3 Gait exam (Neuro): Normal gait present Extrem General: Yes normal to inspection, Yes full ROM and No edema Psych Affect: normal affect Attitude: cooperative Insight: Good insight present (Psych) Judgement: Good judgement present (Psych) Results Reviewed Results Reviewed: EMG 05/2024 IMPRESSION: 1. Mild left median neuropathy across carpal tunnel. 2. 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 3. Chronic left mid cervical radiculopathy. Coding Level of Care Code Est Pt Level 3 (93397) Diagnoses Numbness of left hand R20.0 Neck pain M54.2 Cervical radiculopathy M54.12 Assessment & Plan Assessment & Plan (1) Numbness of left hand: Code(s): R20.0 - Anesthesia of skin Category: Medical Plan: Patient would like to evaluation through spine clinic prior to further investigation of carpal/cubital tunnel. (2) Neck pain: Code(s): M54.2 - Cervicalgia Category: Medical Plan: Patient complaining of neck pain along with cervical radiculopathy and numbness in hands and fingers. Plan to start on pregabalin for nerve pain. (3) Cervical radiculopathy: Code(s): M54.12 - Radiculopathy, cervical region Category: Medical Plan: Management involves obtaining an MRI to assess the severity of carpal tunnel and ulnar neuropathy and coordinating care with a technical sales specialist. Transitioning to pregabalin is planned, given past reporting of gabapentin inefficacy. Considerations for MRI are informed by previous surgical interventions and existing hardware, necessitating non-invasive evaluation strategies. Coordination with a back specialist follows, particularly focusing on radiculopathy progression and comprehensive assessments. Emphasis remains on thorough specialist evaluation post-MRI. Referral placed to [facility]. Plan This note was constructed using voice recognition software. While every effort has been made to ensure accuracy and pocket assembler, still areas may have been included sometimes these areas may affect the content or meeting of the given symptoms. Total time spent caring for the patient today was 20 minutes. This includes time spent before the visit reviewing the chart, time spent during the visit, and time spent after the visit and documentation. Patient was informed and verbally consented to the use of an ambient scribe for clinic note documentation during this visit. Orders: Orders MR cervical spine wo con Today M54.12 - Radiculopathy, cervical region Referrals Neurosurgery Referral M54.12 - Radiculopathy, cervical region, M54.2 - Cervicalgia Medications: New pregabalin 50 mg PO BID 60 caps 0RF
[2024-05-28 14:25] VITALS: BP 130/70; PULSE 104; TEMP 35.9; O2SAT 97; BMI 27.5
== END 2024-05-28 14:59 | disposition home or self-care (01) ==
LOC: HO.HMCH 14:18
PROVIDERS: PCP Internal Medicine
DX: R20.0 Anesthesia of skin (principal); M54.2 Cervicalgia; M54.12 Radiculopathy, cervical region

== ENCOUNTER → 2024-05-28 14:17 | Outpatient (BNVA) | payer MEDICARE, MEDICAID, SELFPAY | PROVIDERS: PCP Internal Medicine | DX: R20.0 Anesthesia of skin (principal); M54.2 Cervicalgia; M54.12 Radiculopathy, cervical region | CPT/HCPCS: 99212 ==

== ENCOUNTER 2024-06-01 22:09 | Emergency (ER) | payer MEDICARE, MEDICAID, SELFPAY ==
--- NOTE | ~2024-06-01 | CT_ITS ---
CLINICAL HISTORY: CP, sob, R neck face swelling CT chest with contrast Comparison: CT/SD/SR - CT ANGIO CHEST PE PROTOCOL - 02/24/24 11:42 EST Findings: Examination limited and degraded by artifact. The heart size is normal. No significant pericardial effusion. Left-sided ICD. No aneurysm of thoracic aorta. Mild emphysema. Bilateral dependent atelectasis. No consolidation No pleural effusion pneumothorax. Thyroid grossly within normal limits. Thoracic esophagus within normal limits. The upper abdomen demonstrates no acute process. Previous cholecystectomy. No acute fractures. Previous anterior cervical spinal fusion. IMPRESSION: 1. No acute findings. 2. Mild emphysema and bilateral dependent atelectasis. 3. Additional stable findings as described. This document has been electronically signed by: Ashanti Chavez MD on 06/02/2024 00:48:56
--- NOTE | ~2024-06-01 | CT_ITS ---
CLINICAL HISTORY: R neck face swelling, r o superior vena cava sx CT soft tissue neck with contrast Comparison: None Findings: Soft tissues in the nasopharynx and oropharynx are symmetric. Parapharyngeal fat is preserved. Soft tissues in the oral cavity are symmetric. Limited evaluation of laryngeal structures. The epiglottis is not thickened. Parotid glands and submandibular glands are within normal limits. Thyroid is within normal limits. Bilateral fat inflammatory stranding/edema. No loculated fluid collection. No soft tissue gas. Numerous small nodes in the neck bilaterally with no adenopathy. Musculature is within normal limits. No acute osseous process. Degenerative changes cervical spine with previous anterior cervical spinal fusion from C4 to C7. Atherosclerotic vascular disease. Lung apices are clear. Left-sided ICD partially visualized. Small mucous retention cyst/polyp in left maxillary sinus. IMPRESSION: 1. No acute findings. 2. Mild diffuse fat stranding/edema with no loculated fluid collection. 3. Additional nonacute findings as described. This document has been electronically signed by: Ashanti Chavez MD on 06/02/2024 00:51:51
--- NOTE | ~2024-06-01 | XR_ITS ---
CLINICAL HISTORY: sob 2 view chest x-ray Comparison: CT/GA/SR - CT ANGIO CHEST PE PROTOCOL - 02/24/24 11:42 EST Findings: Heart size is normal. Left-sided ICD. Lungs are mildly hyperinflated. No consolidation, pleural effusion or pneumothorax. No acute fracture. Previous anterior cervical spine fusion partially visualized. IMPRESSION: 1. No acute findings. This document has been electronically signed by: Ashanti Chavez MD on 06/01/2024 22:49:32
[2024-06-01 22:15] VITALS: BP 107/60; PULSE 94; RESP 18; TEMP 36.9; O2SAT 98; BMI 27.7
--- NOTE | 2024-06-01 22:20 | ECG_ITS ---
Test Reason : CP Blood Pressure : */* mmHG Vent. Rate : 84 BPM Atrial Rate : 84 BPM P-R Int : 156 ms QRS Dur : 100 ms QT Int : 386 ms P-R-T Axes : 52 -53 27 degrees QTcB Int : 456 ms Normal sinus rhythm Left anterior fascicular block Septal infarct (cited on or before 25-Jul-2023) Abnormal ECG When compared with ECG of 25-Feb-2024 12:32, Premature ventricular complexes are no longer Present Referred By: Generic ED Physician Electronically Signed By: ABIODUN MACIAS
[2024-06-01 22:44] LABS: MANUAL DIFF FLAG NO
[2024-06-01 22:46] LABS: Basophils Absolute Auto 0.1 X10*3/uL (0.0-0.2); Basophils Percent Auto 0.6 % (0-2); Eosinophils Absolute Auto 0.2 X10*3/uL (0.0-0.4); Hematocrit 41.5 % (42.0-52.0); Imm Gran Abs Auto 0.04 X10*3/uL (0.00-0.03); Imm Gran Pct Auto 0.3 % (0.0-0.4); Lymphocytes Absolute Auto 3.5 X10*3/uL (1.2-4.9); Lymphocytes Percent Auto 30.2 % (20-40); Mean Corpuscular HGB Conc 33.7 g/dl (31.0-36.0); Mean Corpuscular Hemoglobin 31.2 pg (27.0-33.0); Mean Corpuscular Volume 92.4 fL (80.0-98.0); Mean Platelet Volume 10.3 fL (9.4-12.4); Monocytes Absolute Auto 0.9 X10*3/uL (0.1-1.2); Monocytes Percent Auto 8.1 % (2-11); Neutrophils Absolute Auto 6.8 x10*3/uL (2.0-8.3); Neutrophils Percent Auto 58.8 % (45-73); Platelet Count 150 X10*3/uL (160-400); Red Blood Count 4.49 X10*6/uL (4.60-5.80); Red Cell Distribution Width 12.5 % (11.0-16.0); White Blood Count 11.5 X10*3/uL (4.8-10.8)
--- NOTE | 2024-06-01 22:51 | ED_ITS ---
HPI - General Adult General Chief complaint: General Medical Stated complaint: Neck swelling Time Seen by Provider: 06/01/24 22:36 Source: patient and family (Patient's daughter) Mode of arrival: ambulatory Limitations: no limitations History of Present Illness ED Provider: Dr. Jennifer Huynh HPI narrative: Patient comes to the emergency room reporting right-sided facial swelling and neck pain. According to the patient, there was no trauma, has mild to moderate pain. patient states that he has had multiple cervical spine surgeries but none reason. Patient states that he has noted that sometimes when he wakes up, he notices that his left side of the face is a bit swollen. However, it has never been this noticeable. Patient also complaining of left-sided chest discomfort, nonradiating, started approximately 8 hours ago. Patient states that he has increased shortness of breath throughout the day. Patient known to take Eliquis Related Data Previous Rx's ?Medication ?Instructions ?Recorded albuterol sulfate 90 mcg/actuation 2 puff inhalation Q4-6H PRN 10/11/23 aerosol inhaler (Ventolin HFA) Wheezing #8.5 grams duloxetine 30 mg capsule,delayed 30 mg PO BEDTIME #30 caps 02/26/24 release apixaban 5 mg tablet (Eliquis) 5 mg PO BID #180 tabs 03/22/24 finasteride 5 mg tablet (Proscar) 5 mg PO DAILY #90 tabs 03/26/24 atorvastatin 80 mg tablet 80 mg PO DAILY #90 tabs 03/29/24 nitroglycerin 0.4 mg sublingual 0.4 mg sublingual Q5M PRN chest 03/29/24 tablet pain #20 tabs tizanidine 2 mg capsule 2 mg PO Q8H PRN muscle spasticity 05/17/24 #30 caps pregabalin 50 mg capsule 50 mg PO BID #60 caps 05/28/24 lorazepam 1 mg tablet 1 mg PO BEDTIME PRN anxiety #30 06/01/24 tabs Allergies Allergy/AdvReac Type Severity Reaction Status Date / Time bupropion [From Wellbutrin] Allergy Intermediate Hives, Rage Verified 06/01/24 22:18 varenicline [From Chantix] Allergy Intermediate Agitation, Verified 06/01/24 22:18 Aggression codeine [Codeine] Allergy Mild HIVES/ITCHI Verified 06/01/24 22:18 NG methadone [Methadone] Allergy Mild HIVES/ITCHI Verified 06/01/24 22:18 NG barium sulfate Allergy Unknown Unknown Verified 06/01/24 22:18 Black Pepper-Turmeric Allergy Unknown Unknown Uncoded 05/28/24 14:41 Review of Systems 2 Review of Systems: Constitutional : No Weight loss, No Fever, No Chills, No Night Sweats, No Fatigue, No Malaise ENT/Mouth : Complaining of right-sided neck swollen, no significant pain. No Hearing loss, No Ear Pain, No Nasal Congestion, No Sinus Pain, No Hoarseness, No sore throat, No Rhinorrhea, No Swallowing Difficulty Eyes: No Eye Pain, No Swelling, No Redness, No Foreign Body, No Discharge, No Vision Changes Cardiovascular : Complaining of intermittent chest pain, Chest Pain, No SOB, No Dyspnea on Exertion, No Orthopnea, No Edema, No Palpitations Respiratory : No Cough, No Sputum, No Wheezing, No Smoke Exposure, No Dyspnea Gastrointestinal : No Nausea, No Vomiting, No Diarrhea, No Constipation, No abdominal Pain, No Hematochezia, No Melena Genitourinary : no irregular bleeding, No Dysuria, No Urinary Frequency, No Hematuria, No Urinary Incontinence, No Urgency, No Flank Pain, No Urinary Flow Changes, No Hesitancy Musculoskeletal : No joint pain, No Myalgias, No Joint Swelling Skin : No Skin Lesions, No rash Neuro : No Weakness, No Numbness, No Paresthesias, No Loss of Consciousness, No Dizziness, No Headache Psych : No Anxiety/Panic, No Depression, No SI/HI/AH/VH, No Social Issues, Heme/Lymph: No Bruising, No Bleeding,No Lymphadenopathy Endocrine : No Polyuria, No Polydipsia, No Temperature Intolerance [facility] Past Medical History Medical History Cervical radiculopathy PATRICIA (obstructive sleep apnea) Cardiomyopathy Vertigo Stroke Cerebral infarction Hyperlipidemia History of TIA (transient ischemic attack) (~2013) History of cardiac arrest (~2019) Cardiac defibrillator in place Nonischemic cardiomyopathy Atherosclerotic cardiovascular disease Hypertension Hypercholesterolemia Restrictive lung disease COPD (chronic obstructive pulmonary disease) Cigarette nicotine dependence Nicotine dependence, cigarettes, uncomplicated Uncomplicated opioid dependence Chronic pain syndrome Rotator cuff arthropathy of both shoulders MRSA infection Surgical History History of implantable cardiac defibrillator (ICD) History of cardiac cath S/P insertion of spinal cord stimulator History of back surgery History of fusion of cervical spine History of repair of left rotator cuff History of repair of right rotator cuff History of cholecystectomy History of colonoscopy Family History Family History Mother Multiple sclerosis Father Diabetes Amputat leg, bilat-complicated Sister Lupus Social History Social History Household Members: Family Housing: House Do you presently have visiting nurse or other home services: No Alcohol intake: never Patient Tobacco Use Status: Current everyday Tobacco user Tobacco use type: Cigarette, Cigar and Smokeless Tobacco Cigarette Packs Per Day: 0.50 Cigarettes Per Day: 3 Years Smoked: (onset 9yo, 1/2-3ppd x 40yrs, now <1/4ppd - 30+PYH) e-Cigarette/Vaping Use: Currently Using Second Hand Smoke Exposure: Yes Advance Directives: No Advance Directives Information Provided: No Do you have a plan to hurt others: No Plan service: No Cognitive needs: No Hearing needs: No Vision needs: No Physical Exam ED Vital Signs: Vital Signs - 24 hr 06/01/24 22:15 06/02/24 00:12 06/02/24 01:18 Temperature 98.4 F 98.5 F Pulse Rate 94 104 H Respiratory Rate 18 20 15 Blood Pressure 107/60 111/72 Pulse Oximetry 98 93 Oxygen Delivery Method Room Air 06/02/24 01:22 Temperature Pulse Rate 104 H Respiratory Rate 18 Blood Pressure 111/72 Pulse Oximetry 96 Oxygen Delivery Method Room Air BMI result Body Mass Index 27.7 Medications Administered Discontinued Medications Generic Name Dose Route Start Last Admin Trade Name Freq PRN Reason Stop Dose Admin Iohexol 85 ml 06/01/24 23:38 06/01/24 23:39 Iohexol 350 Mg/Ml 100 Ml Infus..Btl IV 06/01/24 23:39 85 ml ONCE ONE Administration Morphine Sulfate 2 mg 06/02/24 01:02 06/02/24 01:18 Morphine Sulfate 2 Mg/Ml Cartridge IVPUSH 06/02/24 01:03 2 mg ONCE ONE Administration Protocol Medical Decision Making Medical Decision Making [facility] Narrative: My interpretation of labs: Patient's white blood cell count 11.5, likely reactive leukocytosis. CT scan of the soft tissue of the neck does not show any acute abnormalities, mild diffuse fat stranding/ edema with no loculated fluid collection or air/gas chest CT does not show any abnormality, not emphysema bilaterally, stable findings, ICD in place Differential Diagnosis Differential Diagnoses: The differential diagnosis associated with the presentation includes ( superior/inferior vena cava syndrome, CHF, DVT, subcutaneous tissue infection/abscess, lymphadenitis) Admission/Observation Consideration of admission/observation: Escalation of care including admission/observation considered ( the patient's past medical history and current presentation observation was considered) Lab Data [facility] Lab Attestation statement: I reviewed the patient's lab results. 06/01/24 22:39 06/01/24 22:39 Labs: Lab Results 06/01/24 06/02/24 Range/Units 22:39 00:49 WBC 11.5 H (4.8-10.8) X10*3/uL RBC 4.49 L (4.60-5.80) X10*6/uL Hgb 14.0 (14.0-18.0) g/dl Hct 41.5 L (42.0-52.0) % MCV 92.4 (80.0-98.0) fL MCH 31.2 (27.0-33.0) pg MCHC 33.7 (31.0-36.0) g/dl RDW 12.5 (11.0-16.0) % Plt Count 150 L (160-400) X10*3/uL MPV 10.3 (9.4-12.4) fL Immature Gran % (Auto) 0.3 (0.0-0.4) % Neut % (Auto) 58.8 (45-73) % Lymph % (Auto) 30.2 (20-40) % [place] % (Auto) 8.1 (2-11) % Eos % (Auto) 2.0 (0-4) % Baso % (Auto) 0.6 (0-2) % Lymph # (Auto) 3.5 (1.2-4.9) X10*3/uL [place] # (Auto) 0.9 (0.1-1.2) X10*3/uL Eos # (Auto) 0.2 (0.0-0.4) X10*3/uL Baso # (Auto) 0.1 (0.0-0.2) X10*3/uL Abs Immat Gran (auto) 0.04 H (0.00-0.03) X10*3/uL Absolute Neuts (auto) 6.8 (2.0-8.3) x10*3/uL Absolute Nucleated RBC 0.000 (0.0-0.012) X10*3/uL Nucleated RBC % (auto) 0.0 (0.0-0.2) /100WBC Sodium 140 (135-145) mmol/L Potassium 4.0 (3.3-5.1) mmol/L Chloride 109 H (96-108) mmol/L Carbon Dioxide 27 (22-29) mmol/L Anion Gap 8 L (12-20) BUN 18 H (9-16) mg/dL Creatinine 0.73 (0.5-1.4) mg/dL Estim Creat Clear Calc 132.9 Estimated GFR > 60 Random Glucose 81 (60-115) mg/dL Calcium 9.0 (8.4-10.2) mg/dL Troponin I High Sens 10.1 D 11.5 (<3.5-35.0) ng/L Independent Interpretation I performed an independent interpretation of an: CT Scan Radiology Impression Discussion of test interpretation with radiology: I have reviewed the radiologist's reading. Radiologist Impression: Soft tissues in the nasopharynx and oropharynx are symmetric. Parapharyngeal fat is preserved. Soft tissues in the oral cavity are symmetric. Limited evaluation of laryngeal structures. The epiglottis is not thickened. Parotid glands and submandibular glands are within normal limits. Thyroid is within normal limits. Bilateral fat inflammatory stranding/edema. No loculated fluid collection. No soft tissue gas. Numerous small nodes in the neck bilaterally with no adenopathy. Musculature is within normal limits. No acute osseous process. Degenerative changes cervical spine with previous anterior cervical spinal fusion from C4 to C7. Atherosclerotic vascular disease. Lung apices are clear. Left-sided ICD partially visualized. Small mucous retention cyst/polyp in left maxillary sinus. Examination limited and degraded by artifact. The heart size is normal. No significant pericardial effusion. Left-sided ICD. No aneurysm of thoracic aorta. Mild emphysema. Bilateral dependent atelectasis. No consolidation No pleural effusion pneumothorax. Thyroid grossly within normal limits. Thoracic esophagus within normal limits. The upper abdomen demonstrates no acute process. Previous cholecystectomy. No acute fractures. Previous anterior cervical spinal fusion. Examination limited and degraded by artifact. The heart size is normal. No significant pericardial effusion. Left-sided ICD. No aneurysm of thoracic aorta. Mild emphysema. Bilateral dependent atelectasis. No consolidation No pleural effusion pneumothorax. Thyroid grossly within normal limits. Thoracic esophagus within normal limits. The upper abdomen demonstrates no acute process. Previous cholecystectomy. No acute fractures. Previous anterior cervical spinal fusion. Independent Historian Clinical information obtained from an independent historian. History obtained from or confirmed by: Other ( patient's daughter) Critical Care Time Critical Care Time Critical Care Time: Yes Total Critical Care Time: 35 Attestation: I have personally provided critical care time. Time includes review of lab data, radiology results, discussion with consultants, and monitoring for potential decompensation. Intervention performed as documented. Discharge Plan Discharge Clinical Impression: Neck swelling, Atypical chest pain Patient Disposition: Home, Self-Care Instructions: Chest Pain (ED) Additional Instructions: Please follow-up with your primary care physician tomorrow. If you have any worsening or new symptoms, please return to the emergency room or call 911 Prescriptions: No Action albuterol sulfate [Ventolin HFA] 90 mcg/actuation HFA aerosol inhaler 2 puff inhalation Q4-6H PRN (Reason: Wheezing) Qty: 8.5 0RF Eliquis 5 mg tablet 5 mg PO BID Qty: 180 3RF atorvastatin 80 mg tablet 80 mg PO DAILY Qty: 90 3RF lorazepam 1 mg tablet 1 mg PO BEDTIME PRN (Reason: anxiety) Qty: 30 0RF duloxetine 30 mg Capsule,Delayed Release(Dr/Ec) 30 mg PO BEDTIME Qty: 30 0RF tizanidine 2 mg capsule 2 mg PO Q8H PRN (Reason: muscle spasticity) Qty: 30 0RF pregabalin 50 mg capsule 50 mg PO BID Qty: 60 0RF nitroglycerin 0.4 mg tablet, sublingual 0.4 mg sublingual Q5M PRN (Reason: chest pain) Qty: 20 0RF Rx Instructions: do not exceed 3 doses per episode finasteride [Proscar] 5 mg tablet 5 mg PO DAILY Qty: 90 3RF Print Language: Bhutanese
[2024-06-01 22:59] LABS: Anion Gap 8 (12-20); Blood Urea Nitrogen 18 mg/dL (9-16); Carbon Dioxide 27 mmol/L (22-29); Chloride 109 mmol/L (96-108); Creatinine Clr Calc Pharmacy 132.9; Estimated Glomerular Filt Rate > 60; Glucose Random 81 mg/dL (60-115); Sodium 140 mmol/L (135-145)
[2024-06-01 23:08] LABS: Troponin-I High Sensitivity 10.1 ng/L (<3.5-35.0)
[2024-06-01] MEDS: iohexoL 350 MG/ML 100 ML INFUS..BTL 85 ML IV (23:39)
[2024-06-02 00:12] VITALS: BP 111/72; PULSE 104; RESP 20; TEMP 36.9; O2SAT 93
[2024-06-02 01:18] VITALS: RESP 15
[2024-06-02] MEDS: Morphine Sulfate 2 MG/ML CARTRIDGE IVPUSH (01:18)
[2024-06-02 01:22] VITALS: BP 111/72; PULSE 104; RESP 18; O2SAT 96
[2024-06-02 01:22] LABS: Troponin-I High Sensitivity 11.5 ng/L (<3.5-35.0)
[2024-06-02 01:56] VITALS: BP 118/75; PULSE 89; RESP 17; TEMP 36.6; O2SAT 95
== END 2024-06-02 02:00 | disposition home or self-care (01) ==
PROVIDERS: Emergency Provider Emergency Medicine; PCP Internal Medicine
DX: R22.1 Localized swelling, mass and lump, neck (principal); R07.89 Other chest pain; I10 Essential (primary) hypertension; E78.5 Hyperlipidemia, unspecified; F17.210 Nicotine dependence, cigarettes, uncomplicated; Z95.810 Presence of automatic (implantable) cardiac defibrillator; Z79.01 Long term (current) use of anticoagulants; Z79.02 Long term (current) use of antithrombotics/antiplatelets; Z79.899 Other long term (current) drug therapy
CPT/HCPCS: 36415; 70491; 71046; 71260; 80048; 84484; 85025; 93005; 96374; 99284; J2270; Q9967

== ENCOUNTER → 2024-06-01 22:20 | Outpatient (BNV) | payer MEDICARE, MEDICAID, SELFPAY | PROVIDERS: Emergency Provider Emergency Medicine; PCP Internal Medicine; Visit Provider Specialist | DX: R22.0 Localized swelling, mass and lump, head (principal); R22.1 Localized swelling, mass and lump, neck; I87.1 Compression of vein | CPT/HCPCS: 70491; 71046; 71260 ==

== ENCOUNTER → 2024-06-01 22:20 | Outpatient (BNV) | payer MEDICARE, MEDICAID, SELFPAY | PROVIDERS: Emergency Provider Emergency Medicine; PCP Internal Medicine; Visit Provider Internal Medicine | DX: I44.4 Left anterior fascicular block (principal); I25.2 Old myocardial infarction | CPT/HCPCS: 93010 ==

== ENCOUNTER 2024-06-13 17:05 | Emergency (ER) | payer MEDICARE, MEDICAID, SELFPAY ==
--- NOTE | ~2024-06-13 | XR_ITS ---
CLINICAL HISTORY: chest pain, dyspnea EXAM: Two view chest x-ray COMPARISON: CT/SR - CT CHEST W IV CON - 06/01/24 23:15 EDT FINDINGS: Normal cardiac, mediastinal, and hilar contours. Normal heart size. Left chest wall AICD noted. No pleural effusion or pneumothorax. Hyperexpanded lungs consistent with COPD. Lungs are clear. No acute bone finding. IMPRESSION: 1. No acute cardiopulmonary process demonstrated. This document has been electronically signed by: Travis Kay MD on 06/13/2024 19:15:38
--- NOTE | ~2024-06-13 | CT_ITS ---
CLINICAL HISTORY: Headache, possible SVC syndrome CT head without contrast Comparison: 07/25/2023 Findings: No intracranial mass, midline shift, hydrocephalus, or acute hemorrhage. No acute process in sinuses or mastoids. No acute bony abnormality. Impression: No acute intracranial process This document has been electronically signed by: Karl Barrera MD on 06/13/2024 20:22:27
--- NOTE | ~2024-06-13 | CT_ITS ---
CLINICAL HISTORY: Swelling, erytma face, neck, shoulder R O SVC synd CT chest with contrast Comparison: 06/01/2024 Findings: Lung de la torre are clear without acute infiltrates. No significant mediastinal adenopathy. No significant free pleural fluid. No significant focal bony abnormalities. Left chest pacemaker with right heart lead. There is narrowing of the SVC at the atrial junction. Numerous venous collaterals noted in the mediastinum. The appearance is unchanged from prior study. Findings are consistent with partial obstruction. There is contrast within the right heart and pulmonary arteries. Faint contrast noted left heart and aorta. Cardiomegaly with dense coronary calcification. Impression: SVC narrowing at cavoatrial junction, unchanged No acute processes This document has been electronically signed by: Karl Barrera MD on 06/13/2024 20:31:19
--- NOTE | 2024-06-13 17:08 | ECG_ITS ---
Test Reason : chest pain Blood Pressure : */* mmHG Vent. Rate : 98 BPM Atrial Rate : 98 BPM P-R Int : 134 ms QRS Dur : 102 ms QT Int : 376 ms P-R-T Axes : 70 -48 82 degrees QTcB Int : 480 ms Normal sinus rhythm Left anterior fascicular block Anteroseptal infarct (cited on or before 25-Jul-2023) Abnormal ECG When compared with ECG of 01-Jun-2024 22:44, Questionable change in initial forces of Anterior leads Referred By: Rissa Lance Electronically Signed By: SABA LIEBERMAN MD
[2024-06-13 17:24] VITALS: BP 105/67; PULSE 48; RESP 26; TEMP 36.5; O2SAT 99; BMI 27.3
--- NOTE | 2024-06-13 17:24 | ED.GENADULT ---
HPI - General Adult General Chief complaint: Dyspnea Stated complaint: chest pain/sob/face and hand swelling Time Seen by Provider: 06/13/24 17:30 Source: patient Limitations: no limitations History of Present Illness ED Provider: Dr. Michael Dos Santos HPI narrative: 53-year-old male with history of cardiomyopathy, cardiac arrest in 2019, s/p ICD, TIA, cerebral infarction, HTN, restrictive lung disease, COPD, smoking, chronic pain syndrome with uncomplicated opioid dependence presenting with 3 days of chest pain, dyspnea and facial swelling. The patient states that he was noticed increasing facial swelling over the last 3 days he also has noticed redness of his face and upper chest. The patient has also been experiencing chest pain for the last 3 days. He states the pain is located in his sternum and it was a stabbing/crushing pain which will last 2 hours. He gets 3-4 episodes per day. He states he does feel dizzy especially with standing. He was also had increased shortness of breath above his baseline over the last week and increased dyspnea on exertion states that his symptoms are worse with lying flat. He states he was also noticed some swelling of his hands but no swelling in his lower extremities. Patient also states he was the swelling seems to be worse in the morning and improves throughout the day. Patient was also complaining of a pressure-like headache which is located in the back of his head in his 8/10. The patient was chest pain is 8/10. He denied fever, chills, rhinorrhea, sore throat, nausea, vomiting, frequency or dysuria. He was had no dark stools or bloody stools. He was had to runny stools today with no blood in the stool. Patient was seen in the emergency department on 06/01/2024 for right-sided facial swelling and neck swelling with left-sided chest discomfort with increased shortness of breath. At that time, the provider did consider superior vena cava syndrome and did a CT scan of the neck and CT pulmonary angiogram PE protocol of the chest. CT of the neck did reveal mild diffuse fat stranding/edema with no loculated fluid collections. CT angiogram did not reveal any pulmonary embolism, patient had emphysema and bronchial thickening change in his but no other acute findings. Related Data Previous Rx's ?Medication ?Instructions ?Recorded albuterol sulfate 90 mcg/actuation 2 puff inhalation Q4-6H PRN 10/11/23 aerosol inhaler (Ventolin HFA) Wheezing #8.5 grams duloxetine 30 mg capsule,delayed 30 mg PO BEDTIME #30 caps 02/26/24 release apixaban 5 mg tablet (Eliquis) 5 mg PO BID #180 tabs 03/22/24 finasteride 5 mg tablet (Proscar) 5 mg PO DAILY #90 tabs 03/26/24 atorvastatin 80 mg tablet 80 mg PO DAILY #90 tabs 03/29/24 nitroglycerin 0.4 mg sublingual 0.4 mg sublingual Q5M PRN chest 03/29/24 tablet pain #20 tabs tizanidine 2 mg capsule 2 mg PO Q8H PRN muscle spasticity 05/17/24 #30 caps pregabalin 50 mg capsule 50 mg PO BID #60 caps 05/28/24 lorazepam 1 mg tablet 1 mg PO BEDTIME PRN anxiety #30 06/01/24 tabs morphine 15 mg immediate release 15 mg PO Q8H PRN pain #15 tabs 06/13/24 tablet Allergies Allergy/AdvReac Type Severity Reaction Status Date / Time bupropion [From Wellbutrin] Allergy Intermediate Hives, Rage Verified 06/13/24 17:26 varenicline [From Chantix] Allergy Intermediate Agitation, Verified 06/13/24 17:26 Aggression codeine [Codeine] Allergy Mild HIVES/ITCHI Verified 06/13/24 17:26 NG methadone [Methadone] Allergy Mild HIVES/ITCHI Verified 06/13/24 17:26 NG Black Pepper-Turmeric Allergy Unknown Unknown Uncoded 06/13/24 17:26 Review of Systems Review of Systems: Yes all other systems are reviewed and are negative [facility] Past Medical History [facility] Narrative: Social history, the patient does smoke 4-6 cigarettes per day times 34 years. He denies tobacco and drug use Medical History Cervical radiculopathy PATRICIA (obstructive sleep apnea) Cardiomyopathy Vertigo Stroke Cerebral infarction Hyperlipidemia History of TIA (transient ischemic attack) (~2013) History of cardiac arrest (~2019) Cardiac defibrillator in place Nonischemic cardiomyopathy Atherosclerotic cardiovascular disease Hypertension Hypercholesterolemia Restrictive lung disease COPD (chronic obstructive pulmonary disease) Cigarette nicotine dependence Nicotine dependence, cigarettes, uncomplicated Uncomplicated opioid dependence Chronic pain syndrome Rotator cuff arthropathy of both shoulders MRSA infection Surgical History History of implantable cardiac defibrillator (ICD) History of cardiac cath S/P insertion of spinal cord stimulator History of back surgery History of fusion of cervical spine History of repair of left rotator cuff History of repair of right rotator cuff History of cholecystectomy History of colonoscopy Family History Family History Mother Multiple sclerosis Father Diabetes Amputat leg, bilat-complicated Sister Lupus Social History Social History Household Members: Family Housing: House Do you presently have visiting nurse or other home services: No Alcohol intake: never Patient Tobacco Use Status: Current everyday Tobacco user Tobacco use type: Cigarette, Cigar and Smokeless Tobacco Cigarette Packs Per Day: 0.50 Cigarettes Per Day: 3 Years Smoked: (onset 9yo, 1/2-3ppd x 42yrs, now <1/4ppd - 30+PYH) e-Cigarette/Vaping Use: Currently Using Second Hand Smoke Exposure: Yes Advance Directives: Yes Advance Directives on File: Yes Advance Directives Date on File: 07/27/23 Do you have a plan to hurt others: No Plan service: No Cognitive needs: No Hearing needs: No Vision needs: No Physical Exam ED Vital Signs: Vital Signs - 24 hr 06/13/24 17:24 06/13/24 19:19 Temperature 97.7 F 98.3 F Pulse Rate 48 L 94 Respiratory Rate 26 H 18 Blood Pressure 105/67 132/78 Pulse Oximetry 99 99 Oxygen Delivery Method Room Air Room Air BMI result Body Mass Index 27.3 Vital signs revealed a low heart rate of 48, elevated respiratory rate of 26, otherwise Exam: General: Awake, alert in no distress Head: Normocephalic, atraumatic EENT: PERRL, Lids normal, sclera normal, conjunctiva normal, nose normal , ears normal, throat without erythema or exudates Neck: Supple, no adenopathy Lung: breath sounds symmetric, no wheezing, rales or rhonchi Chest: symmetric movement, nontender Heart: regular rate and rhythm, normal S1, S2 no murmurs or rubs Abdomen: soft, non-tender, nondistended, normal bowel sounds Back: no vertebral tenderness, no CVAT Extremities: no deformities, moves all extremities symmetrically Neuro: Awake, alert, oriented, normal speech, cranial nerves intact, moves all extremities symmetrically Psych: Pleasant, cooperative Course Course Course Narrative: This is a rapid medical exam performed by Mar Lance NP: Additional HPI, ROS, PE not included below will be deferred to primary provider. Patient is a 53-year-old male with history of cardiomyopathy, cardiac arrest in 2019, s/p ICD, TIA, cerebral infarction, HTN, restrictive lung disease, COPD, smoking, chronic pain syndrome with uncomplicated opioid dependence presenting with 3 days of chest pain, dyspnea and facial swelling. Has taken antihistamines without relief. HR irregular in triage. Plan: EKG, labs, CXR Medications Administered Discontinued Medications Generic Name Dose Route Start Last Admin Trade Name Freq PRN Reason Stop Dose Admin Iohexol 65 ml 06/13/24 19:47 06/13/24 19:47 Iohexol 350 Mg/Ml 100 Ml Infus..Btl IV 06/13/24 19:48 65 ml ONCE ONE Administration Morphine Sulfate 4 mg 06/13/24 19:25 06/13/24 19:28 Morphine Sulfate 4 Mg/Ml Cartridge IVPUSH 06/13/24 19:26 4 mg ONCE STA Administration Protocol Morphine Sulfate 4 mg 06/13/24 20:01 06/13/24 20:08 Morphine Sulfate 4 Mg/Ml Cartridge IVPUSH 06/13/24 20:02 4 mg ONCE STA Administration Protocol Morphine Sulfate 4 mg 06/13/24 21:09 06/13/24 21:13 Morphine Sulfate 4 Mg/Ml Cartridge IVPUSH 06/13/24 21:10 4 mg ONCE STA Administration Protocol Medical Decision Making Medical Decision Making MDM Narrative: 53-year-old male with history of cardiomyopathy, cardiac arrest in 2019, s/p ICD, TIA, cerebral infarction, HTN, restrictive lung disease, COPD, smoking, chronic pain syndrome with uncomplicated opioid dependence presenting with 3 days of chest pain, dyspnea and facial swelling. Patient was also having swelling of his hands, intermittent chest pain, pressure-like headache x3 days Patient was seen here in the emergency department on 06/01/2024 for right-sided neck and facial swelling with no specific findings on the CT scan soft tissue neck and CT chest PE protocol. Vital signs revealed a low heart rate of 48 and elevated respiratory rate of 26. Physical examination did reveal significant erythema and facial swelling as well as who slight erythema and swelling to his shoulders. Differential diagnosis: ?Includes but is not limited to SVC syndrome, allergic reaction, liver failure, renal failure, nephropathy, myocardial infarction, myocardial ischemia, intracranial bleed, intracranial swelling, anemia, Course: 19:31 My interpretation patient's laboratory evaluation is as follows: CBC was normal. CMP was unremarkable except for an elevated glucose of 146. High sensitive troponin I was detectable but not elevated at 5.1. Repeat troponin due at 20:30 hours. Venous pH low 7.53 with an elevated CO2 of 54 and a elevated bicarb of 28. Patient was chest x-ray was consistent with COPD changes. EKG revealed a paced rhythm otherwise was unremarkable. I did discuss the patient's previous workup with radiologist, Dr. Barajas who recommended that we do a CT scan of the chest with IV contrast to evaluate for SVC syndrome. Given the patient's headache I also ordered CT scan of the brain to rule out cerebral edema, intracranial bleed mass effect, stroke. The patient was given morphine 4 mg IV for his headache and chest pain 22:58 The patient required multiple doses of morphine IV in order to improve his pain. I did discuss the patient's presentation and CT findings with director web at [facility], Dr. Mas who stated that the patient needed a stent placed by a vascular surgeon and that this should be set up as an outpatient. He states that he will arrange a referral to the [facility] vascular Services group in [place], specifically with Dr. Foss for next week. I did discuss this with the patient, I told the patient to contact the vascular service group on Friday morning to facilitate this referral. Patient was advised to take Tylenol for pain and for pain not relieved by Tylenol he was prescribed morphine 15 mg every 6 hours as needed. Admission/Observation Consideration of admission/observation: Escalation of care including admission/observation considered (Yes) Lab Data MDM Lab Attestation statement: I reviewed the patient's lab results. 06/13/24 17:36 06/13/24 17:36 Labs: Lab Results 06/13/24 06/13/24 06/13/24 Range/Units 17:36 17:46 20:55 WBC 10.5 (4.8-10.8) X10*3/uL RBC 4.49 L (4.60-5.80) X10*6/uL Hgb 14.1 (14.0-18.0) g/dl Hct 41.8 L (42.0-52.0) % MCV 93.1 (80.0-98.0) fL MCH 31.4 (27.0-33.0) pg MCHC 33.7 (31.0-36.0) g/dl RDW 12.6 (11.0-16.0) % Plt Count 183 (160-400) X10*3/uL MPV 10.3 (9.4-12.4) fL Immature Gran % (Auto) 0.4 (0.0-0.4) % Neut % (Auto) 62.6 (45-73) % Lymph % (Auto) 27.3 (20-40) % [place]ilton % (Auto) 7.3 (2-11) % Eos % (Auto) 1.9 (0-4) % Baso % (Auto) 0.5 (0-2) % Lymph # (Auto) 2.9 (1.2-4.9) X10*3/uL [place] # (Auto) 0.8 (0.1-1.2) X10*3/uL Eos # (Auto) 0.2 (0.0-0.4) X10*3/uL Baso # (Auto) 0.1 (0.0-0.2) X10*3/uL Abs Immat Gran (auto) 0.04 H (0.00-0.03) X10*3/uL Absolute Neuts (auto) 6.6 (2.0-8.3) x10*3/uL Absolute Nucleated RBC 0.000 (0.0-0.012) X10*3/uL Nucleated RBC % (auto) 0.0 (0.0-0.2) /100WBC PT 13.5 H (10.9-12.4) SEC INR 1.2 H (0.9-1.1) VBG pH 7.31 L (7.32-7.43) VBG pCO2 54 mmHg VBG pO2 43 mmHg VBG HCO3 28 H (22-26) mmol/L VBG O2 Saturation 61.0 % VBG Base Excess 1.0 mmol/L Sodium 141 (135-145) mmol/L Potassium 4.2 (3.3-5.1) mmol/L Chloride 108 (96-108) mmol/L Carbon Dioxide 24 (22-29) mmol/L Anion Gap 13 (12-20) BUN 10 (9-16) mg/dL Creatinine 0.66 (0.5-1.4) mg/dL Estim Creat Clear Calc 147.0 Estimated GFR > 60 Random Glucose 95 (60-115) mg/dL Calcium 9.2 (8.4-10.2) mg/dL Magnesium 2.2 (1.6-2.6) mg/dL Total Bilirubin 0.8 (0.0-1.0) mg/dL AST 19 (5-37) U/L ALT 21 (0-40) U/L Alkaline Phosphatase 77 (39-117) U/L Troponin I High Sens 5.1 D 6.1 (<3.5-35.0) ng/L B-Natriuretic Peptide 34 (<100) pg/mL Total Protein 6.8 (6.5-8.0) g/dL Albumin 3.9 (3.5-5.0) g/dL Urine Color Yellow Urine Appearance Clear Urine pH 6.0 (5.0-9.0) Ur Specific Franklin >= 1.030 H (1.005-1.025) Urine Protein Negative (Neg-Trace) mg/dL Urine Glucose (UA) Negative (Negative) mg/dL Urine Ketones Negative (Negative) mg/dL Urine Blood Negative (Negative) Urine Nitrite Negative (Negative) Ur Leukocyte Esterase Negative (Negative) Independent Interpretation I performed an independent interpretation of an: EKG and Plain X-Ray Interpretation: My independent interpretation patient's 12 EKG done on 06/13/2024 at 17:18 hours is as follows: Paced rhythm with a rate of 98 My independent interpretation patient's two view chest x-ray is as follows: Hyperinflated lungs with flattening of the diaphragm consistent with COPD changes, patient has a pacemaker. No acute infiltrates. Radiology Impression Discussion of test interpretation with radiology: I have reviewed the radiologist's reading. Radiologist Impression: CT head without contrast Comparison: 07/25/2023 Findings: No intracranial mass, midline shift, hydrocephalus, or acute hemorrhage. No acute process in sinuses or mastoids. No acute bony abnormality. Impression: No acute intracranial process This document has been electronically signed by: Karl Barrera MD on 06/13/2024 20:22:27 CLINICAL HISTORY: Swelling, erytma face, neck, shoulder R O SVC synd CT chest with contrast Comparison: 06/01/2024 Findings: Lung de la torre are clear without acute infiltrates. No significant mediastinal adenopathy. No significant free pleural fluid. No significant focal bony abnormalities. Left chest pacemaker with right heart lead. There is narrowing of the SVC at the atrial junction. Numerous venous collaterals noted in the mediastinum. The appearance is unchanged from prior study. Findings are consistent with partial obstruction. There is contrast within the right heart and pulmonary arteries. Faint contrast noted left heart and aorta. Cardiomegaly with dense coronary calcification. 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 In your case this is caused by narrowing of where the superior vena cava goes into the atrial (upper heart chamber) on the right side of your heart. This narrowing he was most likely caused by the wires from your pacemaker and your defibrillator that go through this area and have cause scarring of this area. I did speak to the director web, Dr. Mas who stated that the treatment requires a stent placed by a vascular surgeon . is referring you to Dr. Jeni Foss who has an office in [place]. He is going to send a referral to her and told me that their office should reach out to you tomorrow and get you an appointment with the [facility] Vascular Services Group by Friday. Please call [facility] vascular services's group office tomorrow to confirm this appointment. Take Tylenol (acetaminophen) 2 pills every 6 hours as needed for pain. For pain not relieved by Tylenol take morphine 15 mg pills, 1 pill every 6 hours as needed for pain. This medication will make you sleepy, do not drive or work while taking this medication. Morphine is a narcotic medication and can be addicting. If you are concerned about addiction you can ask the pharmacist for less pills or do not get this prescription filled Follow-up with your doctor in 2 days. Please return to the emergency department if your symptoms get worse or if you develop any symptoms that are concerning to you. Prescriptions: New morphine 15 mg tablet 15 mg PO Q8H PRN (Reason: pain) Qty: 15 0RF Rx Instructions: Partial Fill upon patient request. No Action albuterol sulfate [Ventolin HFA] 90 mcg/actuation HFA aerosol inhaler 2 puff inhalation Q4-6H PRN (Reason: Wheezing) Qty: 8.5 0RF Eliquis 5 mg tablet 5 mg PO BID Qty: 180 3RF atorvastatin 80 mg tablet 80 mg PO DAILY Qty: 90 3RF lorazepam 1 mg tablet 1 mg PO BEDTIME PRN (Reason: anxiety) Qty: 30 0RF duloxetine 30 mg Capsule,Delayed Release(Dr/Ec) 30 mg PO BEDTIME Qty: 30 0RF tizanidine 2 mg capsule 2 mg PO Q8H PRN (Reason: muscle spasticity) Qty: 30 0RF pregabalin 50 mg capsule 50 mg PO BID Qty: 60 0RF nitroglycerin 0.4 mg tablet, sublingual 0.4 mg sublingual Q5M PRN (Reason: chest pain) Qty: 20 0RF Rx Instructions: do not exceed 3 doses per episode finasteride [Proscar] 5 mg tablet 5 mg PO DAILY Qty: 90 3RF Print Language: Guinean
[2024-06-13 17:46] LABS: MANUAL DIFF FLAG NO
[2024-06-13 17:49] LABS: Basophils Absolute Auto 0.1 X10*3/uL (0.0-0.2); Basophils Percent Auto 0.5 % (0-2); Eosinophils Absolute Auto 0.2 X10*3/uL (0.0-0.4); Eosinophils Percent Auto 1.9 % (0-4); Hematocrit 41.8 % (42.0-52.0); Hemoglobin 14.1 g/dl (14.0-18.0); Imm Gran Abs Auto 0.04 X10*3/uL (0.00-0.03); Imm Gran Pct Auto 0.4 % (0.0-0.4); Lymphocytes Absolute Auto 2.9 X10*3/uL (1.2-4.9); Lymphocytes Percent Auto 27.3 % (20-40); Mean Corpuscular HGB Conc 33.7 g/dl (31.0-36.0); Mean Corpuscular Hemoglobin 31.4 pg (27.0-33.0); Mean Corpuscular Volume 93.1 fL (80.0-98.0); Mean Platelet Volume 10.3 fL (9.4-12.4); Monocytes Absolute Auto 0.8 X10*3/uL (0.1-1.2); Monocytes Percent Auto 7.3 % (2-11); Neutrophils Absolute Auto 6.6 x10*3/uL (2.0-8.3); Neutrophils Percent Auto 62.6 % (45-73); Platelet Count 183 X10*3/uL (160-400); Red Blood Count 4.49 X10*6/uL (4.60-5.80); Red Cell Distribution Width 12.6 % (11.0-16.0); White Blood Count 10.5 X10*3/uL (4.8-10.8)
[2024-06-13 17:50] LABS: VBG HCO3 28 mmol/L (22-26); VBG pCO2 54 mmHg; VBG pH 7.31 (7.32-7.43); VBG pO2 43 mmHg
[2024-06-13 17:53] LABS: Venous Blood Gas Refer to POC result
[2024-06-13 17:57] LABS: INTERNATIONAL NORM RATIO 1.2 (0.9-1.1); Prothrombin Time 13.5 SEC (10.9-12.4)
[2024-06-13 18:09] LABS: Alanine Aminotransferase 21 U/L (0-40); Albumin Level 3.9 g/dL (3.5-5.0); Anion Gap 13 (12-20); Aspartate Amino Transferase 19 U/L (5-37); Bilirubin Total 0.8 mg/dL (0.0-1.0); Blood Urea Nitrogen 10 mg/dL (9-16); Calcium 9.2 mg/dL (8.4-10.2); Carbon Dioxide 24 mmol/L (22-29); Chloride 108 mmol/L (96-108); Estimated Glomerular Filt Rate > 60; Glucose Random 95 mg/dL (60-115); Magnesium 2.2 mg/dL (1.6-2.6); Potassium 4.2 mmol/L (3.3-5.1); Sodium 141 mmol/L (135-145); Total Protein 6.8 g/dL (6.5-8.0)
[2024-06-13 18:13] LABS: B Type Natriuretic Peptide 34 pg/mL (<100)
[2024-06-13 18:16] LABS: Troponin-I High Sensitivity 5.1 ng/L (<3.5-35.0)
[2024-06-13 18:19] LABS: Alkaline Phosphatase 77 U/L (39-117)
[2024-06-13 19:19] VITALS: BP 132/78; PULSE 94; RESP 18; TEMP 36.8; O2SAT 99
[2024-06-13] MEDS: Morphine Sulfate 4 MG/ML CARTRIDGE IVPUSH ×4 (19:28→22:59)
--- NOTE | 2024-06-13 19:42 | PC.NURSE ---
assumed care of pt at 1900. #20g iv placed in LAC, medicated per may with morphine for 8/10 pain to head and chest. vital signs updated. pt now in CT scan.
[2024-06-13] MEDS: iohexoL 350 MG/ML 100 ML INFUS..BTL 65 ML IV (19:47)
[2024-06-13 21:01] LABS: Appearance Urine Clear; Color Urine Yellow; Glucose Urine UA Negative (Negative); Leukocyte Esterase Urine Negative (Negative); Nitrite Urine Negative (Negative); Specific Gravity - Urine >= 1.030 (1.005-1.025); Urine Blood Negative (Negative); Urine Ketones Negative (Negative); Urine Protein Negative (Neg-Trace)
[2024-06-13 21:20] LABS: Troponin-I High Sensitivity 6.1 ng/L (<3.5-35.0)
[2024-06-13 23:01] VITALS: BP 131/80; PULSE 96; RESP 17; O2SAT 98
[2024-06-13 23:05] VITALS: BP 131/80; PULSE 96; RESP 17; TEMP 36.7; O2SAT 98
[2024-06-13 23:10] LABS: Influenza A PCR NEGATIVE (Negative); Influenza B PCR NEGATIVE (Negative); Resp Syncy Virus RNA Qual PCR NEGATIVE (Negative); SARS COV2 PCR INHOUSE NEGATIVE (Negative)
== END 2024-06-13 23:05 | disposition home or self-care (01) ==
PROVIDERS: Registered Nurse Emergency; Emergency Provider Emergency Medicine Emergency Medical Services; PCP Internal Medicine
DX: I87.1 Compression of vein (principal); R07.9 Chest pain, unspecified; I10 Essential (primary) hypertension; J44.9 Chronic obstructive pulmonary disease, unspecified; Z03.818 Encounter for observation for suspected exposure to other biological agents ruled out; Z95.0 Presence of cardiac pacemaker; Z86.73 Personal history of transient ischemic attack (TIA), and cerebral infarction without residual deficits
CPT/HCPCS: 0241U; 36415; 70450; 71046; 71260; 80053; 81003; 82803; 83735; 83880; 84484; 85025; 85610; 93005; 96374; 96376; 99284; 99285; J2270; Q9967

== ENCOUNTER → 2024-06-13 17:08 | Outpatient (BNV) | payer MEDICARE, MEDICAID, SELFPAY | PROVIDERS: Emergency Provider Emergency Medicine Emergency Medical Services; PCP Internal Medicine; Visit Provider Internal Medicine Cardiovascular Disease | DX: I44.4 Left anterior fascicular block (principal); I25.2 Old myocardial infarction | CPT/HCPCS: 93010 ==

== ENCOUNTER → 2024-06-13 17:27 | Outpatient (BNV) | payer MEDICARE, MEDICAID, SELFPAY | PROVIDERS: Emergency Provider Emergency Medicine Emergency Medical Services; PCP Internal Medicine; Visit Provider Radiology Diagnostic Radiology | DX: I87.1 Compression of vein (principal); R51.9 Headache, unspecified; R07.89 Other chest pain; R06.00 Dyspnea, unspecified | CPT/HCPCS: 71046 ==

== ENCOUNTER 2024-06-24 11:11 | Outpatient (AMB) | payer MEDICARE, MEDICAID, SELFPAY ==
[2024-06-24 11:18] VITALS: BP 140/88; PULSE 115; O2SAT 98; BMI 26.6
--- NOTE | 2024-06-24 11:18 | A.OFFVIS_ITS ---
Vital Signs 06/24/24 11:18 Height 6 ft 2 in Weight 207 lb 3.752 oz BMI 26.6 BP 140/88 H Blood Pressure Location Lt brachial Position Sitting Pulse 115 H Pulse Source Pulse Oximeter Pulse Oximetry (%) 98 Oxygen Delivery Method Room Air Intake Visit Reasons: copd Intake Note: pt is here for follow up and states he is trying to use his cpap nightly, just had a surgery in the neck and is doing well. [employer] Required: No Allergies bupropion [From Wellbutrin] Allergy (Intermediate, Verified 06/24/24 11:47) Hives, Rage varenicline [From Chantix] Allergy (Intermediate, Verified 06/24/24 11:47) Agitation, Aggression codeine [Codeine] Allergy (Mild, Verified 06/24/24 11:47) HIVES/ITCHING methadone [Methadone] Allergy (Mild, Verified 06/24/24 11:47) HIVES/ITCHING Black Pepper-Turmeric Allergy (Unknown, Uncoded 06/24/24 11:47) Unknown Medication List - Last Reconciled 06/24/24 by Mare Escobar MD albuterol sulfate 90 mcg/actuation (Ventolin HFA) 2 puffs inhalation Q4-6H PRN apixaban (Eliquis) 5 mg PO BID atorvastatin 80 mg PO DAILY duloxetine 30 mg PO BEDTIME finasteride (Proscar) 5 mg PO DAILY lorazepam 1 mg PO BEDTIME PRN morphine 15 mg PO Q8H PRN nitroglycerin 0.4 mg sublingual Q5M PRN pregabalin 50 mg PO BID tizanidine 2 mg PO Q8H PRN Do you need a note to return to daycare/school/sports/work: No HPI HPI copd: Details: This 53 years old gentleman is here for follow-up for his sleep apnea. He was seen in the emergency room here at [facility] on 06/13, diagnosed to have superior vena cava syndrome, as he was not using his anticoagulants regularly. The CTA at that time did not show any thrombus. In superior vena cava He was discharged to be seen by a vascular surgeon as outpatient. But last week he developed increasing amount of swelling of the neck, with even difficulty in swallowing. He had to go to [facility] Emergency room, there he was diagnosed to have a thrombus in the superior vena cava. Admitted to the hospital and had vascular procedure including balloon extraction of the thrombus. Apparently he was intubated for respiratory failure but 2 days later he pulled out the endotracheal tube. He has been discharged home and advised to keep on taking apixaban 5 mg b.i.d. regularly. He claims that his breathing is fair and stable and he has to use albuterol only p.r.n.. He has obstructive sleep apnea and is supposed to be using CPAP regularly every night. He claims that he does use the CPAP every night but the compliance report does not confirm that. Still smokes close to 1 pack of cigarettes a day and also uses some weeping. [facility] Medical History Cervical radiculopathy PATRICIA (obstructive sleep apnea) Cardiomyopathy Vertigo Stroke Cerebral infarction Hyperlipidemia History of TIA (transient ischemic attack) (~2013) History of cardiac arrest (~2019) Cardiac defibrillator in place Nonischemic cardiomyopathy Atherosclerotic cardiovascular disease Hypertension Hypercholesterolemia Restrictive lung disease COPD (chronic obstructive pulmonary disease) Cigarette nicotine dependence Nicotine dependence, cigarettes, uncomplicated Uncomplicated opioid dependence Chronic pain syndrome Rotator cuff arthropathy of both shoulders MRSA infection Surgical History History of implantable cardiac defibrillator (ICD) History of cardiac cath S/P insertion of spinal cord stimulator History of back surgery History of fusion of cervical spine History of repair of left rotator cuff History of repair of right rotator cuff History of cholecystectomy History of colonoscopy Family History Mother Multiple sclerosis Father Diabetes Amputat leg, bilat-complicated Sister Lupus Social History Household Members: Family Housing: House Do you presently have visiting nurse or other home services: No Alcohol intake: never Patient Tobacco Use Status: Current everyday Tobacco user Tobacco use type: Cigarette, Cigar and Smokeless Tobacco Cigarette Packs Per Day: 0.50 Cigarettes Per Day: 3 Years Smoked: (onset 9yo, 1/2-3ppd x 42yrs, now <1/4ppd - 30+PYH) e-Cigarette/Vaping Use: Currently Using Second Hand Smoke Exposure: Yes Advance Directives Date on File: 07/27/23 service: No Cognitive needs: No Hearing needs: No Vision needs: No Review of Systems Const All systems reviewed & are unremarkable except as noted in HPI and below Eyes Reports no additional complaints ENT Reports no additional complaints Card Denies chest pain at rest and Denies leg edema Resp Reports as per HPI GI Reports no additional complaints Reports no additional complaints Musc Reports no additional complaints Skin/Breast Reports system reviewed and no additional complaints, except as documented Neuro Reports no additional complaints Psych Reports no additional complaints Physical Exam Vital Signs: Last Vital Signs Pulse 115 H 06/24/24 11:18 BP 140/88 H 06/24/24 11:18 Pulse Ox 98 06/24/24 11:18 Oxygen Delivery Method Room Air 06/24/24 11:18 BMI result Body Mass Index 26.6 Const General: comfortable (Somewhat anxious), no acute distress, alert and awake Orientation/consciousness: patient oriented x3 HEENT Head: Yes normal to inspection General nose exam: No nasal polyps present and No nasal discharge present Face and sinus: Yes sinuses nontender Mouth: oropharynx normal Throat: Yes posterior oropharynx normal Eyes General: appearance normal, both eyes and all related structures Neck Neck: Yes normal visual inspection, Yes no lymphadenopathy, Yes trachea midline and Yes no JVD Thyroid: Thyroid normal Chest Chest palpation & inspection: normal inspection of the chest, normal palpation of entire chest wall and no tenderness Resp Other: Percussion note is resonant, breath sounds are slightly distant with prolonged expiratory phase. NO WHEEZES OR CREPITATIONS ARE HEARD. Cardio Palpation: normal PMI Rate: regular rate Rhythm: regular rhythm and other (Pacemaker battery in the left pectoral area) Heart sounds: no gallops and no murmurs GI Palpation (GI): Soft to palpation, nontender, No hepatosplenomegaly present and no masses Auscultation: normal bowel sounds Back/Spine/Pelvis Thoracic/Lumbar Spine: thoracic and lumbar spine normal to inspection and thoraco-lumbar ROM limited Skin Other: Extensive tattoos General skin exam: no rashes or lesions noted Neuro General: patient oriented x3 and no focal motor deficits Cranial nerves: Yes CN's II-XII intact bilaterally Extrem General: Yes normal to inspection, Yes no clubbing, cyanosis or edema and Yes no calf tenderness Psych Appearance: grossly normal and well kempt Speech and movement: Normal speech and movement present Results Reviewed Results Reviewed: Compliance report shows that he used 24/30 nights, 80%. Average use it per night 6 hours 37 minutes but on many nights his usage was less than 4 hours. Pressure used mostly 9-13 cm. There is moderate amount of air leak, Residual AHI 12.4 Assessment & Plan Assessment & Plan (1) COPD (chronic obstructive pulmonary disease): Comment: COPD secondary to ongoing smoking. However as per PFT, it is mild and his problem is mostly restrictive lung disease. Code(s): J44.9 - Chronic obstructive pulmonary disease, unspecified Category: Medical Qualifiers: COPD type: emphysema Emphysema type: unspecified Qualified Code(s): J43.9 - Emphysema, unspecified Plan: Advised to use albuterol HFA 2 puffs Q 6 hours p.r.n.. (2) Nicotine dependence, cigarettes, uncomplicated: Comment: (current smoker - onset 9yo, 1/2-3ppd x 42yrs, now <1/4ppd - 30+PYH) Today he states that between the Tobacco cigarettes and electronic cigarettes he is using close to 20 /day Code(s): F17.210 - Nicotine dependence, cigarettes, uncomplicated Category: Medical Plan: Discussed with him at length and stressed that he should quit smoking completely. He was also made aware of adverse effects from electronic cigarettes. (3) PATRICIA (obstructive sleep apnea): Comment: Home-based sleep study in July 2023 was positive for sleep apnea. It was considered mild, but I think he continues to have symptoms of sleep apnea. In view of his multiple comorbidities, I decided to put him on CPAP, but he is having difficulty in using it. Has started using almost daily though he misses on several nights. It compliance has definitely improved. Code(s): G47.33 - Obstructive sleep apnea (adult) (pediatric) Category: Medical Plan: Stressed that he should use CPAP every night at least for 6 hours per night Coding Level of Care Code Est Pt Level 3 (20290) Diagnoses Pulmonary emphysema, unspecified emphysema type J43.9 COPD type: emphysema Emphysema type: unspecified Nicotine dependence, cigarettes, uncomplicated F17.210 PATRICIA (obstructive sleep apnea) G47.33
== END 2024-06-24 11:46 | disposition home or self-care (01) ==
LOC: HO.HPS 11:11
PROVIDERS: PCP Internal Medicine; Visit Provider Internal Medicine
DX: J43.9 Emphysema, unspecified (principal); F17.210 Nicotine dependence, cigarettes, uncomplicated; G47.33 Obstructive sleep apnea (adult) (pediatric)
CPT/HCPCS: 99213

== ENCOUNTER → 2024-06-24 11:11 | Outpatient (BNVA) | payer MEDICARE, MEDICAID, SELFPAY | PROVIDERS: PCP Internal Medicine; Visit Provider Internal Medicine | DX: J43.9 Emphysema, unspecified (principal); G47.33 Obstructive sleep apnea (adult) (pediatric); F17.210 Nicotine dependence, cigarettes, uncomplicated; Z99.89 Dependence on other enabling machines and devices | CPT/HCPCS: 99212 ==

== ENCOUNTER 2024-06-25 12:57 | Outpatient (AMB) | payer MEDICARE, MEDICAID, SELFPAY ==
--- NOTE | 2024-06-25 13:09 | MHC.OFFVIS ---
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 Required: No Accompanied by: Self / Same As Patient Allergies bupropion [From Wellbutrin] Allergy (Intermediate, Verified 06/24/24 11:47) Hives, Rage varenicline [From Chantix] Allergy (Intermediate, Verified 06/24/24 11:47) Agitation, Aggression codeine [Codeine] Allergy (Mild, Verified 06/24/24 11:47) HIVES/ITCHING methadone [Methadone] Allergy (Mild, Verified 06/24/24 11:47) HIVES/ITCHING Black Pepper-Turmeric Allergy (Unknown, Uncoded 06/24/24 11:47) Unknown Medication List - Last Reconciled 06/25/24 by Gunnar Tate MD albuterol sulfate 90 mcg/actuation (Ventolin HFA) 2 puffs inhalation Q4-6H PRN apixaban (Eliquis) 5 mg PO BID aspirin (Adult Aspirin Regimen) 81 mg PO DAILY atorvastatin 80 mg PO DAILY carvedilol (Coreg) 3.125 mg PO BID 30 days duloxetine 30 mg PO BEDTIME finasteride (Proscar) 5 mg PO DAILY lorazepam 1 mg PO BEDTIME PRN morphine 15 mg PO Q8H PRN nitroglycerin 0.4 mg sublingual Q5M PRN pregabalin 50 mg PO BID tizanidine 2 mg PO Q8H PRN HPI Comments Details: Daniel returns for follow-up. Complicated history. He carries a diagnosis of nonischemic cardiomyopathy. He was maintained on Coreg and lisinopril. Then he went to snf. While in sn[facility] he had a cardiac arrest-2019. Described as VT/VF. Then diagnosed with STEMI and underwent cardiac catheterization but there was no culprit lesion. Had ICD placed. In 07/2023, he was admitted for left-sided numbness/weakness. He was treated as acute stroke. He underwent thrombolytic treatment. Full recovery. Then Eliquis was added to aspirin. Then having low blood pressure issues and lot of his cardiac medications were stopped. After that, another hospitalization when he was transferred to [facility] for concerns of shortness of breath/atypical chest pains. Repeat catheterization but no significant findings. 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 He now states that he is back to his normal self and feels great. He has got no cardiac symptoms or in fact anything else of concern. [facility] Medical History Cervical radiculopathy PATRICIA (obstructive sleep apnea) Cardiomyopathy Vertigo Stroke Cerebral infarction Hyperlipidemia History of TIA (transient ischemic attack) (~2013) History of cardiac arrest (~2019) Cardiac defibrillator in place Nonischemic cardiomyopathy Atherosclerotic cardiovascular disease Hypertension Hypercholesterolemia Restrictive lung disease COPD (chronic obstructive pulmonary disease) Cigarette nicotine dependence Nicotine dependence, cigarettes, uncomplicated Uncomplicated opioid dependence Chronic pain syndrome Rotator cuff arthropathy of both shoulders MRSA infection Surgical History History of implantable cardiac defibrillator (ICD) History of cardiac cath S/P insertion of spinal cord stimulator History of back surgery History of fusion of cervical spine History of repair of left rotator cuff History of repair of right rotator cuff History of cholecystectomy History of colonoscopy Family History Mother Multiple sclerosis Father Diabetes Amputat leg, bilat-complicated Sister Lupus Social History Household Members: Family Housing: House Do you presently have visiting nurse or other home services: No Alcohol intake: never Patient Tobacco Use Status: Current everyday Tobacco user Tobacco use type: Cigarette, Cigar and Smokeless Tobacco Cigarette Packs Per Day: 0.50 Cigarettes Per Day: 3 Years Smoked: (onset 9yo, 1/2-3ppd x 42yrs, now <1/4ppd - 30+PYH) e-Cigarette/Vaping Use: Currently Using Second Hand Smoke Exposure: Yes Advance Directives Date on File: 07/27/23 service: No Cognitive needs: No Hearing needs: No Vision needs: No Review of Systems Const Denies chills, Denies fatigue, Denies fever(s), Denies frequent falls, Denies weakness, Denies weight gain and Denies weight loss ENT Denies dizziness Card Denies chest pain, Denies leg edema, Denies lightheadedness, Denies palpitations, Denies dyspnea and Denies dyspnea on exertion Resp Denies cough, Denies dyspnea and Denies dyspnea on exertion GI Denies hematochezia Musc Denies abnormal gait, Denies muscle weakness, Denies numbness, Denies radiating pain into limb and Denies tingling Neuro Denies abnormal gait, Denies dizziness, Denies frequent falls, Denies numbness, Denies tingling and Denies weakness Endo Denies fatigue and Denies palpitations Physical Exam Vital Signs: Last Vital Signs Pulse 92 06/25/24 13:10 BP 130/70 06/25/24 13:10 BMI result Body Mass Index 26.9 Const General: comfortable and no acute distress Orientation/consciousness: patient oriented x3 HEENT Other: Unremarkable Head: Yes normal to inspection Neck Neck: Yes normal visual inspection Chest Chest palpation & inspection: normal inspection of the chest Resp Auscultation: clear to auscultation bilaterally Cardio Palpation: normal PMI Heart sounds: S1 normal heart sound present, S2 normal heart sound present, no gallops, no murmurs and no rubs GI Palpation (GI): Soft to palpation Back/Spine/Pelvis Other: unremarkable Skin General skin exam: no rashes or lesions noted Neuro General: patient oriented x3 Extrem General: Yes normal to inspection Psych Mental Status: mental status grossly normal Assessment & Plan Assessment & Plan (1) Nonischemic cardiomyopathy: Code(s): I42.8 - Other cardiomyopathies Category: Medical Plan: Recent echocardiogram from [facility] with LVEF of 15 20%. In the prior study from [place], 35-40%. In the cardiac catheterization from 03/2023-ostial 30% stenosis in the LAD; normal left main and minimal irregularities elsewhere. Normal LVEDP. Pulmonary capillary wedge pressure 30 mm Hg. RA of 8 mm Hg. PA mean 20 mm Hg. Hence his symptoms of shortness of breath/chest pain thought to be noncardiac. He has had dizziness type symptoms in the past but he states they are now completely resolved. We can try to put him back on GDMT. Start Coreg. If he tolerates that, then start lisinopril. (2) Atherosclerotic cardiovascular disease: Code(s): I25.10 - Atherosclerotic heart disease of [place] coronary artery without angina pectoris Category: Medical Plan: Clinically no angina. On statins. Last LDL 67 mg/dL. (3) Cardioembolic stroke: Code(s): I63.9 - Cerebral infarction, unspecified Category: Medical Plan: On Eliquis. (4) Arterial hypotension: Code(s): I95.9 - Hypotension, unspecified Category: Medical Plan: Previously, taken off Coreg, lisinopril, spironolactone. Resuming Coreg now. (5) SVC obstruction: Code(s): I87.1 - Compression of vein Category: Medical Plan: To follow-up with vascular surgery at [facility]. Medications: New carvedilol (Coreg) must administer with a meal/food 3.125 mg PO BID 60 tabs 5RF 30 days Coding Level of Care Code Est Pt Level 4 (79827) Complex EM visit Add On G2211 Diagnoses Nonischemic cardiomyopathy I42.8 Atherosclerotic cardiovascular disease I25.10 Cardioembolic stroke I63.9 Arterial hypotension I95.9 SVC obstruction I87.1
[2024-06-25 13:10] VITALS: BP 130/70; PULSE 92; BMI 26.9
== END 2024-06-25 13:32 | disposition home or self-care (01) ==
LOC: HO.HCS 12:58
PROVIDERS: PCP Internal Medicine; Visit Provider Internal Medicine
DX: I42.8 Other cardiomyopathies (principal); I25.10 Atherosclerotic heart disease of native coronary artery without angina pectoris; I63.9 Cerebral infarction, unspecified; I95.9 Hypotension, unspecified; I87.1 Compression of vein
CPT/HCPCS: 99214; G2211

== ENCOUNTER → 2024-06-25 12:57 | Outpatient (BNVA) | payer MEDICARE, MEDICAID, SELFPAY | PROVIDERS: PCP Internal Medicine; Visit Provider Internal Medicine | DX: I42.8 Other cardiomyopathies (principal); I25.2 Old myocardial infarction; I25.10 Atherosclerotic heart disease of native coronary artery without angina pectoris; I95.9 Hypotension, unspecified; I87.1 Compression of vein; F17.210 Nicotine dependence, cigarettes, uncomplicated; F17.290 Nicotine dependence, other tobacco product, uncomplicated; Z86.73 Personal history of transient ischemic attack (TIA), and cerebral infarction without residual deficits | CPT/HCPCS: 99212 ==

== ENCOUNTER 2024-06-28 15:27 | Outpatient (AMB) | payer MEDICARE, MEDICAID, SELFPAY ==
[2024-06-28 15:39] VITALS: BP 146/82; PULSE 106; O2SAT 98; BMI 27.2
--- NOTE | 2024-06-28 15:39 | MHC.PC.OV ---
Vital Signs 06/28/24 15:39 Height 6 ft 2 in Weight 212 lb BMI 27.2 BP 146/82 H Blood Pressure Location Lt brachial Position Sitting Pulse 106 H Pulse Source Pulse Oximeter Pulse Oximetry (%) 98 Oxygen Delivery Method Room Air Intake Visit Reasons: CAD, COPD, CArdiomyopathy Intake Note: Needs refill on lyrica Allergies bupropion [From Wellbutrin] Allergy (Intermediate, Verified 06/28/24 15:40) Hives, Rage varenicline [From Chantix] Allergy (Intermediate, Verified 06/28/24 15:40) Agitation, Aggression codeine [Codeine] Allergy (Mild, Verified 06/28/24 15:40) HIVES/ITCHING methadone [Methadone] Allergy (Mild, Verified 06/28/24 15:40) HIVES/ITCHING Black Pepper-Turmeric Allergy (Unknown, Uncoded 06/28/24 15:40) Unknown Medication List - Last Reconciled 06/28/24 by Sabina Colindres MD albuterol sulfate 90 mcg/actuation (Ventolin HFA) 2 puffs inhalation Q4-6H PRN apixaban (Eliquis) 5 mg PO BID aspirin (Adult Aspirin Regimen) 81 mg PO DAILY atorvastatin 80 mg PO DAILY carvedilol (Coreg) 3.125 mg PO BID 30 days duloxetine 30 mg PO BEDTIME finasteride (Proscar) 5 mg PO DAILY lorazepam 1 mg PO BEDTIME PRN morphine 15 mg PO Q8H PRN nitroglycerin 0.4 mg sublingual Q5M PRN pregabalin 50 mg PO BID pregabalin 50 mg PO BID Tobacco use date assessed: 05/28/24 Dental Screening Dental Screen Date: 03/29/24 [facility] Medical History (Updated 06/28/24 @ 16:09 by Sabina Colindres MD) Cervical radiculopathy PATRICIA (obstructive sleep apnea) Cardiomyopathy Vertigo Stroke Cerebral infarction Hyperlipidemia History of TIA (transient ischemic attack) (~2013) History of cardiac arrest (~2019) Cardiac defibrillator in place Nonischemic cardiomyopathy Atherosclerotic cardiovascular disease Hypertension Hypercholesterolemia Restrictive lung disease COPD (chronic obstructive pulmonary disease) Cigarette nicotine dependence Nicotine dependence, cigarettes, uncomplicated Uncomplicated opioid dependence Chronic pain syndrome Rotator cuff arthropathy of both shoulders MRSA infection Surgical History History of implantable cardiac defibrillator (ICD) History of cardiac cath S/P insertion of spinal cord stimulator History of back surgery History of fusion of cervical spine History of repair of left rotator cuff History of repair of right rotator cuff History of cholecystectomy History of colonoscopy Family History Mother Multiple sclerosis Father Diabetes Amputat leg, bilat-complicated Sister Lupus Social History Household Members: Family Housing: House Do you presently have visiting nurse or other home services: No Alcohol intake: never Patient Tobacco Use Status: Current everyday Tobacco user Tobacco use type: Cigarette, Cigar and Smokeless Tobacco Cigarette Packs Per Day: 0.50 Cigarettes Per Day: 3 Years Smoked: (onset 9yo, 1/2-3ppd x 42yrs, now <1/4ppd - 30+PYH) e-Cigarette/Vaping Use: Currently Using Second Hand Smoke Exposure: Yes Advance Directives Date on File: 07/27/23 service: No Cognitive needs: No Hearing needs: No Vision needs: No Questionnaire PHQ-9 Over the last 2 weeks, how often have you been bothered by any of the following problems? 1. Little interest or pleasure in doing things: not at all 2. Feeling down, depressed, or hopeless: not at all 3. Trouble falling or staying asleep, or sleeping too much: not at all 4. Feeling tired or having little energy: not at all 5. Poor appetite or overeating: not at all 6. Feeling bad about yourself - or that you are a failure or have let yourself or your family down: not at all 7. Trouble concentrating on things, such as reading the newspaper or watching television: not at all 8. Moving or speaking so slowly that other people could have noticed. Or the opposite - being so fidgety or restless that you have been moving around a lot more than usual: not at all 9. Thoughts that you would be better off or of hurting yourself in some way: not at all Total score: 0 Depression Screening Interpretation: Negative Depression Screening Done: Yes 50815 - PHQ-9 Billing: Yes Source: Developed by Melissa ArzateW. Jeff, Mohan Lovett and colleagues, with an educational cosmo from [employer]. Thrive Questionnaire Date Thrive assessed: 03/29/24 I am a: Patient What is your living situation today?: I choose not to answer this question Within the past 12 months, did the food you bought not last and you didn't have the money to get more?: I choose not to answer this question Within the past 12 months, did you worry whether your food would run out before you got money to buy more?: I choose not to answer this question Do you have trouble paying for medicines?: I choose not to answer this question Do you have trouble getting transportation to medical appointments?: I choose not to answer this question Do you have trouble paying your heating and electricity bill?: I choose not to answer this question Do you have trouble taking care of your child, family member or friend?: I choose not to answer this question Do you have trouble with day-to-day activities such as bathing, preparing meals, shopping, managing finances, etc.?: I choose not to answer this question Are you currently unemployed and looking for a job?: I choose not to answer this question Are you interested in more education?: I choose not to answer this question Please select the resources that you would like help with: None Currently or been in a relationship where the following occur: I choose not to answer THRIVE Score: 0 AUDIT C Alcohol Use Questionnaire (AUDIT-C) 1. How often do you have a drink containing alcohol?: Never Total Score: 0 COLETTE-7 AMB Questionnaire COLETTE-7 Date COLETTE - 7 assessed: 03/29/24 Feeling nervous, anxious, or on edge: 0 = Not at all Not being able to stop or control worryin = Not at all Worrying too much about different things: 0 = Not at all Trouble relaxin = Not at all Being so restless that it is hard to sit still: 0 = Not at all Becoming easily annoyed or irritable: 0 = Not at all Feeling afraid as if something awful might happen: 0 = Not at all Total COLETTE-7 score (0-4 normal; 5-9 mild; 10-14 moderate; 15-21 severe): 0 Source: Developed by Drs. King Macias, Melissa Aguilar, Mohan Lovett and colleagues, with an educational cosmo from [employer]. Physical exam (Primary Care) Vital Signs: Last Vital Signs Pulse 106 H 06/28/24 15:39 BP 146/82 H 06/28/24 15:39 Pulse Ox 98 06/28/24 15:39 Oxygen Delivery Method Room Air 06/28/24 15:39 BMI result Body Mass Index 27.2 Tobacco/Smoking Status: Tobacco use Status Tobacco use date assessed 05/28/24 06/28/24 15:40 Patient Tobacco Use Status Current everyday Tobacco 06/28/24 15:40 Tobacco use type Cigarette,Cigar,Smokeless 06/28/24 15:40 Tobacco e-Cigarette/Vaping Use Currently Using 06/28/24 15:40 PHQ-9: PHQ-9 Score PHQ-9: Total score 0 06/28/24 16:13 Depression Screening Interpretation: Negative Thrive Assessment: Date of Thrive Assessment Date Thrive assessed 03/29/24 06/28/24 15:40 Currently or been in a relationship where the following occur: I choose not to answer Const General: alert; No acute distress Eyes Conjunctivae: conjunctivae normal Resp Auscultation: clear to auscultation bilaterally Cardio Rate: regular rate Rhythm: regular rhythm GI Inspection: Yes normal to inspection Extrem General: Yes normal to inspection and No edema Coding Level of Care Code Est Pt Level 4 (55206) Complex EM visit Add On G2211 Diagnoses SVC obstruction I87.1 PATRICIA (obstructive sleep apnea) G47.33 Cardiomyopathy I42.[address] Z95.810 Atherosclerotic cardiovascular disease I25.10 Primary hypertension I10 Hypertension type: primary hypertension Hypercholesterolemia E78.00 Pulmonary emphysema, unspecified emphysema type J43.9 COPD type: emphysema Emphysema type: unspecified Nicotine dependence, cigarettes, uncomplicated F17.210 Additional Codes PHQ-9 - 23471 - PHQ-9 Billing: Yes ([id number]) Assessment & Plan Assessment & Plan (1) SVC obstruction: Code(s): I87.1 - Compression of vein Category: Medical Plan: Patient advised to follow up with vascular (2) PATRICIA (obstructive sleep apnea): Comment: Home-based sleep study in July 2023 was positive for sleep apnea. It was considered mild, but I think he continues to have symptoms of sleep apnea. In view of his multiple comorbidities, I decided to put him on CPAP, but he is having difficulty in using it. Has started using almost daily though he misses on several nights. It compliance has definitely improved. Code(s): G47.33 - Obstructive sleep apnea (adult) (pediatric) Category: Medical Plan: Advised to use the CPAP regularly to help with heart. continue to use CPAP > 4 hours and benefit from this. (3) Cardiomyopathy: Comment: 06/2024 ef 15-20 % Code(s): I42.9 - Cardiomyopathy, unspecified Category: Medical Plan: Patient was started on carvedilol continue to follow-up with cardiology. Continue with anticoagulation (4) Cardiac defibrillator in place: Comment: (s/p cardiac arrest 2019) Code(s): Z95.810 - Presence of automatic (implantable) cardiac defibrillator Category: Medical Plan: Continue to follow up with Cardiology (5) Atherosclerotic cardiovascular disease: Code(s): I25.10 - Atherosclerotic heart disease of [place] coronary artery without angina pectoris Category: Medical Plan: Control the cholesterol, weight, blood pressure, patient on aspirin and on anticoagulation (6) Hypertension: Code(s): I10 - Essential (primary) hypertension Category: Medical Qualifiers: Hypertension type: primary hypertension Qualified Code(s): I10 - Essential (primary) hypertension Plan: Continue with blood pressure medication. Decrease salt intake and exercise patient has been placed on carvedilol 3.125 mg twice a day (7) Hypercholesterolemia: Code(s): E78.00 - Pure hypercholesterolemia, unspecified Category: Medical Plan: Avoid fried foods, chicken skin, eggs, butter margarine, pastries and meat. Be it pork or beef they have a lot of cholesterol LDL goal of less than 70 preferably less than 55 on atorvastatin 80 mg once a need to get blood work (8) COPD (chronic obstructive pulmonary disease): Comment: COPD secondary to ongoing smoking. However as per PFT, it is mild and his problem is mostly restrictive lung disease. Code(s): J44.9 - Chronic obstructive pulmonary disease, unspecified Category: Medical Qualifiers: COPD type: emphysema Emphysema type: unspecified Qualified Code(s): J43.9 - Emphysema, unspecified Plan: Patient has seen Pulmonary on albuterol inhaler (9) Nicotine dependence, cigarettes, uncomplicated: Comment: (current smoker - onset 9yo, 1/2-3ppd x 42yrs, now <1/4ppd - 30+PYH) Today he states that between the Tobacco cigarettes and electronic cigarettes he is using close to 20 /day Code(s): F17.210 - Nicotine dependence, cigarettes, uncomplicated Category: Medical Plan: Patient is strongly advised to stop smoking Plan History of Present Illness The patient is a 53-year-old male presenting with multiple chronic health conditions, including COPD, non-ischemic cardiomyopathy, and a history of cardiac events. The patient's cardiovascular history includes a previous STEMI treated with an ICD and a cardiac catheterization that demonstrated no critical stenosis. He also has a history of atherosclerotic cardiovascular disease, hypertension, hypercholesterolemia, and a cerebral vascular accident treated with thrombolytic therapy in 2023, for which he was started on anticoagulation therapy. 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 An echocardiogram showed a significantly reduced ejection fraction, noted consistently over follow-up. The patient was diagnosed with obstructive sleep apnea and advised on CPAP use, which appears to improve symptoms, though adherence can vary. Smoking cessation has been encouraged due to the negative impact on pulmonary and cardiac health, but the patient continues to smoke. The patient also manages generalized anxiety disorder pharmacologically. His medication regimen includes multiple cardioprotective and lipid-lowering agents such as carvedilol, atorvastatin, and anticoagulants. The patient reports ongoing assessment for carpal tunnel syndrome, cervical radiculopathy, and ulnar neuropathy, along with difficulty achieving medication adherence consistently, impacting the management of his symptoms and overall health status. Health Maintenance - Advised smoking cessation due to the adverse health impact on cardiopulmonary conditions. - Regular CPAP use prescribed for obstructive sleep apnea. - Pneumonia and shingles vaccines have been administered. - Cholesterol management with atorvastatin aiming for LDL goals below 70 mg/dL, ideally below 55 mg/dL. - Routine use of aspirin and anticoagulation therapy for cardiovascular protection. - Encouraged regular blood work every three months to monitor cholesterol and liver function. - Blood pressure control with carvedilol prescribed at 3.125 mg BID. - Pulmonary consultation occurred, focusing on COPD management and smoking cessation support. Social History - Continues to smoke despite medical advice to quit. - Engages infrequently in physical activity, working on vehicles occasionally. 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 - Sporadic engagement with exercise due to arthritis and joint pain. - Occasional lamar for money serves as casual leisure and minor income source. - Residing with family and provides care duties for grandchildren. - Medical access facilitated due to family employment at healthcare facilities. Review of Systems - Cardiovascular: Reports history of cardiac arrest; denies current chest pain. - Pulmonary: Reports shortness of breath; acknowledged COPD. - Neurological: Reports previous dizziness, now resolved; denies numbness beyond known neuropathies. - Gastrointestinal: Reports sulfur-like belching, denies blood in stool. - Musculoskeletal: Reports joint pain due to arthritis and carpal tunnel syndrome. - General: Denies anemia; reports medication use for multiple chronic conditions. Physical Exam Results - Labs: Last reported cholesterol in July 2023 with LDL at 67 mg/dL. - Tests and Diagnostics: Echocardiogram with EF 15-20%; Cardiac catheterization in March 2023 showed 30% stenosis in LAD. Plan The patient's management strategy involves adhering to prescribed medications, including carvedilol for cardiovascular support and atorvastatin for cholesterol control. Critical to the plan is the continued use of CPAP for sleep apnea and advising smoking cessation to improve overall health. Routine blood tests every three months will monitor the patient's cholesterol and cardiovascular indicators. Cardiovascular health will be closely monitored with regular cardiology follow-ups. The ongoing use of anticoagulation therapy with Eliquis and aspirin serves to mitigate the risk of thrombotic events, following the patient's history of stroke and cardiac events. Addressing joint and neuropathic symptoms involves specialist evaluation with potential interventions for conditions like carpal tunnel syndrome. Patient education focuses on the importance of medication adherence and lifestyle changes to manage chronic conditions effectively. Patient was informed and verbally consented to the use of an ambient scribe for clinic note documentation during this visit. Discussion Notes I discussed the necessity of ongoing cardiopulmonary management, focusing heavily on the benefits of maintaining CPAP use for sleep apnea and the critical impact of smoking cessation on health. We reviewed the need for cholesterol control with atorvastatin and the potential benefits versus risks of continued anticoagulation and cardio-protective therapy. We evaluated current medications and adjusted carvedilol dosages to optimize cardiovascular outcomes. Follow-ups were encouraged for heart health evaluation, and new symptoms should be promptly reported. We also covered the risks associated with inactivity and the importance of prescribed physical therapy regimens. Consent for all ongoing treatments and interventions was confirmed. Patient Instructions - Take carvedilol as prescribed, twice daily. - Use the CPAP machine every night to improve sleep apnea symptoms. - Refrain from smoking cigarettes to enhance heart and lung health. - Continue taking atorvastatin and report any side effects. - Make sure to take your blood thinner and aspirin daily. - Schedule follow-up blood work in three months. - Engage in light physical activity, but avoid stress on joints. - Follow up with specialists as recommended. - Monitor symptoms and report any changes in your condition. Orders: Orders Comprehensive Met. Panel Today I25.10 - Atherosclerotic heart disease of [place] coronary artery without angina pectoris Lipid Panel Today E78.00 - Pure hypercholesterolemia, unspecified, I25.10 - Atherosclerotic heart disease of [place] coronary artery without angina pectoris Thyroid Stimulating Hormone Today I25.10 - Atherosclerotic heart disease of [place] coronary artery without angina pectoris Vitamin B12 and Folate Today I25.10 - Atherosclerotic heart disease of [place] coronary artery without angina pectoris B Type Natriuretic Peptide Today I25.10 - Atherosclerotic heart disease of [place] coronary artery without angina pectoris Comprehensive Met. Panel 3 Months I25.10 - Atherosclerotic heart disease of [place] coronary artery without angina pectoris Magnesium 3 Months I25.10 - Atherosclerotic heart disease of [place] coronary artery without angina pectoris Lipid Panel 3 Months E78.00 - Pure hypercholesterolemia, unspecified, I25.10 - Atherosclerotic heart disease of [place] coronary artery without angina pectoris Complete Blood Count Auto Diff Today I25.10 - Atherosclerotic heart disease of [place] coronary artery without angina pectoris Free T4 (Free Thyroxine) Today I25.10 - Atherosclerotic heart disease of [place] coronary artery without angina pectoris Magnesium Today I25.10 - Atherosclerotic heart disease of [place] coronary artery without angina pectoris Complete Blood Count Auto Diff 3 Months I25.10 - Atherosclerotic heart disease of [place] coronary artery without angina pectoris UA CC w/rflx Micro + Cult 3 Months I25.10 - Atherosclerotic heart disease of [place] coronary artery without angina pectoris, R30.0 - Dysuria Free T4 (Free Thyroxine) 3 Months I25.10 - Atherosclerotic heart disease of [place] coronary artery without angina pectoris Thyroid Stimulating Hormone 3 Months I25.10 - Atherosclerotic heart disease of [place] coronary artery without angina pectoris Vitamin B12 and Folate 3 Months I25.10 - Atherosclerotic heart disease of [place] coronary artery without angina pectoris Medications: New sennosides (Senokot) 8.6 mg PO BID PRN 60 tabs 0RF constipation Refilled pregabalin 50 mg PO BID 60 caps 0RF
== END 2024-06-28 16:34 | disposition home or self-care (01) ==
LOC: HO.HMCH 15:27
PROVIDERS: Visit Provider Internal Medicine
DX: I42.9 Cardiomyopathy, unspecified (principal); J43.9 Emphysema, unspecified; I87.1 Compression of vein; G47.33 Obstructive sleep apnea (adult) (pediatric); Z95.810 Presence of automatic (implantable) cardiac defibrillator; I25.10 Atherosclerotic heart disease of native coronary artery without angina pectoris; I10 Essential (primary) hypertension; E78.00 Pure hypercholesterolemia, unspecified; F17.210 Nicotine dependence, cigarettes, uncomplicated

== ENCOUNTER → 2024-06-28 15:27 | Outpatient (BNVA) | payer MEDICARE, MEDICAID, SELFPAY | PROVIDERS: Visit Provider Internal Medicine | DX: I87.1 Compression of vein (principal); G47.33 Obstructive sleep apnea (adult) (pediatric); I42.9 Cardiomyopathy, unspecified; I25.10 Atherosclerotic heart disease of native coronary artery without angina pectoris; I10 Essential (primary) hypertension; E78.00 Pure hypercholesterolemia, unspecified; J43.9 Emphysema, unspecified; F17.210 Nicotine dependence, cigarettes, uncomplicated; Z95.810 Presence of automatic (implantable) cardiac defibrillator | CPT/HCPCS: 96127; 99212 ==

== ENCOUNTER → 2024-07-08 09:37 | Outpatient (BNV) | payer MEDICARE, MEDICAID, SELFPAY | PROVIDERS: PCP Internal Medicine; Visit Provider Radiology Diagnostic Radiology | DX: M54.12 Radiculopathy, cervical region (principal) | CPT/HCPCS: 72141 ==

== ENCOUNTER 2024-07-08 09:42 | Outpatient (REF) | payer MEDICARE, MEDICAID, SELFPAY ==
--- NOTE | ~2024-07-08 | MR_ITS ---
EXAMINATION: MR CERVICAL SPINE WITHOUT CONTRAST CLINICAL INFORMATION: Radiculopathy, cervical region. COMPARISON: July 25, 2017. TECHNIQUE: MRI of the cervical spine was obtained using routine sequences without contrast. FINDINGS: Craniocervical junction is intact. No bone marrow STIR signal abnormality. Paramagnetic field distortion secondary to metallic hardware plate C4 C7. Incomplete fusion/ankylosis C4 C7. Grade 1 retrolisthesis C3-4 with reverse curvature. The cervical spinal cord signal is normal. C2-3: No disc herniation. Left neuroforamina narrowing on a degenerative basis. Broad-based disc osteophyte complex formation. C3-4: Grade 1 retrolisthesis. Broad-based disc osteophyte complex formation. CSF effacement of the thecal sac flattening of the spinal cord without cord signal abnormality. Bilateral neuroforamina stenosis on a degenerative basis. C4-5: Postsurgical changes. No cord compression. C5-6: Postsurgical changes. No cord compression. No gross neuroforamina stenosis. C6-7: Postsurgical changes. No cord compression. No gross neuroforamina stenosis. C7-T1: No cord compression. No gross neuroforamina stenosis. No prevertebral compartment hematoma, mass or fluid collection. Flow-void signal within the main vessels is normal. Codominant vertebral arteries. Retropharyngeal trajectory of the carotic arteries, bilaterally. Nonspecific prominent cervical lymph nodes. MR/MR cervical spine wo con IMPRESSION: Postsurgical changes C4 C7 resulting in incomplete ankylosis. Grade 1 retrolisthesis resulting in central spinal canal stenosis and cord deformity without cord edema and or myelopathy. Bilateral neuroforamina stenosis on a degenerative basis C3-4. Electronically signed by: Qasim Rg MD 07/08/2024 11:03 AM EDT
== END 2024-07-08 09:43 | disposition home or self-care (01) ==
LOC: HO.MRI 09:42
PROVIDERS: PCP Internal Medicine
DX: M54.12 Radiculopathy, cervical region (principal)
CPT/HCPCS: 72141

== ENCOUNTER 2024-07-14 14:40 | Outpatient (REF) | payer MEDICARE, MEDICAID, SELFPAY ==
--- NOTE | ~2024-07-14 | US_ITS ---
EXAMINATION: US RETROPERITONEUM HISTORY: R35.1 - Nocturia TECHNIQUE: Real-time grayscale ultrasound imaging of the kidneys was performed and images were reviewed. COMPARISON: Correlation is made with a CT of the abdomen with contrast dated 06/01/2018. FINDINGS: Right kidney: The right kidney measures 10.2 x 6.6 x 6.0 cm. Renal parenchymal echotexture and thickness are normal. There are no masses. There is slight pelvic fullness. There is no hydronephrosis or renal calculi. Left Kidney: The left kidney measures 12.0 x 5.9 x 5.0 cm. Renal parenchymal echotexture and thickness are normal. There is a 1.1 cm cyst in the interpolar region. There is no hydronephrosis or renal calculi. The urinary bladder is unremarkable. Bilateral ureteral jets are identified. Before voiding, the urinary bladder measured 7.2 x 5.6 x 7.5 cm, for an estimated volume of 157 mL. After voiding, the urinary bladder measured 2.2 x 3.0 x 2.8 cm, for an estimated volume of 9.3 mL. The prostate measures 2.4 x 2.3 x 3.1 cm. US/US retroperitoneal comp IMPRESSION: 1.1 cm left renal cyst. Post void bladder residual of 9.3 mL. Electronically signed by: King Aguero MD 07/14/2024 03:48 PM EDT
--- OUTSIDE RECORDS SUMMARY | 2024-07-14 14:43 | XMS_ITS | Clinical Summary ---
Author Organization [facility] Address [address] [place] [address] Phone Care Team Providers Care Sweetbread Trimmer Name Role Phone Sabina Colindres MD Primary Care Provider [phone] Social History Tobacco Use Types Packs/Day Years Used Date Smoking Tobacco: Never Assessed Sex and Gender Information Value Date Recorded Sex Assigned at Not on file Legal Sex Male 10:07 AM EST Gender Identity Not on file Sexual Orientation Not on file Plan of Treatment Health Maintenance Due Date Last Done Comments DTaP,Tdap,and Td Vaccines (1 - Tdap) 08/14/1987 Hepatitis B Vaccines (1 of 3 - 19+ 3-dose series) 08/14/1987 Pneumococcal Vaccine: 50+ Ye ars (1 of 1 - PCV) 2018 Zoster Vaccines (1 of 2) 2018 COVID-19 Vaccine ( - 2023-2 5 season) 2023 Cholesterol Screening (Lipid Panel) 07/08/2024 Colorectal Cancer Screening: Colonoscopy 07/08/2024 Depression Screening 07/08/2024 HIV Screening 07/08/2024 Hepatitis C Screening 07/08/2024 Medicare Annual Wellness Visit 07/08/2024 Social Influencers of Health Screening 07/08/2024 Influenza Vaccine (Season Ended) 2024 HIB Vaccines Aged Out No longer eligi ble based on patient's age to complete this topic HPV Vaccines Aged Out No longer eligi ble based on patient's age to complete this topic Hepatitis A Vaccines Aged Out No long er eligible based on patient's age to complete this topic IPV Vaccines Aged Out No longer eligi ble based on patient's age to complete this topic MMR Vaccines Aged Out No longer eligi ble based on patient's age to complete this topic Meningococcal ACWY Vaccine Aged Out N o longer eligible based on patient's age to complete this topic Meningococcal B Vaccine Aged Out No l onger eligible based on patient's age to complete this topic Pneumococcal Vaccine: Pediat rics (0 to 5 Years) and At-Risk Patients (6 to 64 Years) Aged Out No longer eligible b ased on patient's age to complete this topic RSV Immunization Patients Un luis 20 months Aged Out No longer eligible b ased on patient's age to complete this topic Varicella Vaccines Aged Out No longer eligible based on patient's age to complete this topic Insurance MEDICARE [place]ICAID - [place] Care Teams Sweetbread Trimmer Relationship Specialty Start Date End Date Sabina Colindres MD [address] [place] [address] PCP - General Internal Medicine 07/08/24
== END 2024-07-14 14:41 | disposition home or self-care (01) ==
LOC: HO.US 14:40
PROVIDERS: PCP Internal Medicine; Visit Provider Urology
DX: R35.1 Nocturia (principal); N40.1 Benign prostatic hyperplasia with lower urinary tract symptoms
CPT/HCPCS: 76770

== ENCOUNTER → 2024-07-14 14:42 | Outpatient (BNV) | payer MEDICARE, MEDICAID, SELFPAY | PROVIDERS: PCP Internal Medicine; Visit Provider Radiology Diagnostic Radiology | DX: N28.1 Cyst of kidney, acquired (principal) | CPT/HCPCS: 76770 ==

== ENCOUNTER 2024-07-16 12:24 | Outpatient (AMB) | payer MEDICARE, MEDICAID, SELFPAY ==
--- OUTSIDE RECORDS SUMMARY | 2024-07-16 12:26 | XMS_ITS | Clinical Summary ---
Author Organization [facility] [employer] [facility] Address [address] [place] [address] Phone Care Team Providers Care Dialysis Rn Name Role Phone Sabina Colindres MD Primary Care Provider [phone] Social History Tobacco Use Types Packs/Day Years [...] Insurance MEDICARE MEDICAID - [place] Care Teams Dialysis Rn Relationship Specialty Start Date End Date Sabina Colindres MD [address] [place] [address] PCP - General Internal Medicine 07/08/24
--- NOTE | 2024-07-16 13:01 | HO.SPINEOV ---
Vital Signs 07/16/24 13:04 Height 6 ft 2 in Weight 216 lb BMI 27.7 Intake Visit Reasons: Neck pain Intake Note: Mr. Agarwal is here today c/o neck pain. Groundman Required: No Allergies bupropion [From Wellbutrin] Allergy (Intermediate, Verified 07/16/24 13:05) Hives, Rage varenicline [From Chantix] Allergy (Intermediate, Verified 07/16/24 13:05) Agitation, Aggression codeine [Codeine] Allergy (Mild, Verified 07/16/24 13:05) HIVES/ITCHING methadone [Methadone] Allergy (Mild, Verified 07/16/24 13:05) HIVES/ITCHING Black Pepper-Turmeric Allergy (Unknown, Uncoded 06/28/24 15:40) Unknown Physical Exam Vital Signs: BMI result Body Mass Index 27.7 Assessment & Plan Assessment & Plan (1) Cervical radiculopathy: Code(s): M54.12 - Radiculopathy, cervical region Category: Medical Plan Dear Guillermina, Thank you for referring Mr Agarwal to our office today. He is a 53-year-old gentleman with a very complicated spinal history, including neck fracture with C1-2 wiring, anterior cervical fusion from C4-C7, amongst multiple other lumbar surgeries that he has had done as well , all performed by who has since retired. The patient comes in with a three-month history of severe neck pain radiating down to the top of his shoulder associated with tingling going from his mid forearm into his 4th and 5th digits. The pain has been very intense. He is familiar with it because of all of his previous neck surgeries and ultimately underwent an MRI showing spinal cord compression at C3-4 with foraminal stenosis adjacent to his previous fusions. To this point he has had no dedicated conservative treatment but he is been through rigorous conservative treatment in the past including physical therapy, chiropractic as well as cortisone injections. None of these things ever really work and help him with his pain. He is currently taking morphine daily to help with the discomfort. His pain is aggravated with activity. He has not report any overt myelopathic symptoms. 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 He has a history of cardiomyopathy with cardiac arrest, status post ICD placement, coronary artery disease, stroke, BPH, sleep apnea, vertigo, nonsustained ventricular tachycardia, anxiety, restrictive lung disease, COPD, BPH, failed back syndrome, ulnar neuropathy and carpal tunnel syndrome. Social hx: He is still smoking half a pack a day, he does not drink or use any street or recreational drugs. Medications: Eliquis, albuterol, baby aspirin, Lipitor, carvedilol, duloxetine, finasteride, lorazepam, morphine, nitroglycerin, Lyrica, senna Allergies: Please see the list Physical exam: Awake alert oriented no acute distress, he has trouble standing up straight it gives him significant discomfort. He has a little bit of weakness in his left triceps but otherwise strength in the upper extremities is normal as well as lower extremities is normal. He is hyperreflexic in the lower extremities with clonus in his ankles. No Morales's sign in the upper extremities. His biceps reflex is intact on the right, absent on the left, triceps are normal. He has a well healed incision in the back of his neck extending up to the base of his skull as well as multiple anterior neck incisions on the right side. 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 He has evidence of a healed fracture of the dens with wiring posteriorly. There is a CAT scan done of the soft tissues of his neck at [facility] and this shows evidence of solid fusion through his previous anterior fusion sites as well as the wiring at C1-2 in the back. There is no significant stenosis at C7-T1. EMG report seen on the visit from his PCP a month or so ago showing left midcervical radiculopathy, left cubital tunnel and left carpal tunnel syndrome. I do not have an actual hard copy of this but rather the report on your note. Impression: 53-year-old male with complicated medical history as well as complicated spinal history outlined above with anterior fusion C4-7 as well as posterior wiring C1-2 after fracture of C2 many years ago, presents with adjacent segment disease, neck pain, radiculopathy going down to his left deltoid which we think it is consistent with the C3-4 disc degeneration we see. He has extensive postsurgical changes in his neck, but Dr. Gonzales reviewed the CAT scan and believes we could do in ACDF C3-4. The plate at C4-5 does not appear to go up above the disc space at C3-4 so he should have room for a stand-alone cage. The problem right now is that the patient has blood thinners for his recent blood clot in his SVC, and it is not clear if he is going to be able to come off these any time soon. At the end of this month, He is seeing the vascular team at [facility] who put him on these medications and did the procedure on him a few weeks ago. He is going to talk with him about the possibility of coming off the blood thinners for surgery, and when it might be safely to do so. I told him to get the name of the surgeon as well so we could contact them and find out any specific contraindications for us offering surgery. Obviously we want to do this safely and not put him at risk. Currently he does not have any myelopathic symptoms so we are doing this for pain so it is not urgent. Thank you for allowing us to care for your patient. The total time spent with this visit with this patient was 45 minutes reviewing history, physical exam, cervical imaging review, and implementation of treatment plan or further diagnostic testing Reynaldo Gonzales MD,PhD [facility] Coding Level of Care Code New Pt Level 4 (40628) Diagnoses Cervical radiculopathy M54.12
[2024-07-16 13:04] VITALS: BMI 27.7
== END 2024-07-16 14:09 | disposition home or self-care (01) ==
LOC: HO.HNS 12:24
PROVIDERS: PCP Internal Medicine; Visit Provider Physician Assistant
DX: M54.12 Radiculopathy, cervical region (principal)
CPT/HCPCS: 99204

== ENCOUNTER → 2024-07-16 12:24 | Outpatient (BNVA) | payer MEDICARE, MEDICAID, SELFPAY | PROVIDERS: PCP Internal Medicine; Visit Provider Physician Assistant | DX: M54.12 Radiculopathy, cervical region (principal) | CPT/HCPCS: 99202 ==

== ENCOUNTER → 2024-07-19 23:59 | Outpatient (BNV) | payer MEDICARE, MEDICAID, SELFPAY ==
--- NOTE | 2024-07-19 19:37 | MHC.OFFVIS ---
Intake Visit Reasons: Remote ICD Check- [employer] Allergies bupropion [From Wellbutrin] Allergy (Intermediate, Verified 07/16/24 13:05) Hives, Rage varenicline [From Chantix] Allergy (Intermediate, Verified 07/16/24 13:05) Agitation, Aggression codeine [Codeine] Allergy (Mild, Verified 07/16/24 13:05) HIVES/ITCHING methadone [Methadone] Allergy (Mild, Verified 07/16/24 13:05) HIVES/ITCHING Black Pepper-Turmeric Allergy (Unknown, Uncoded 06/28/24 15:40) Unknown [facility] Medical History (Updated 06/28/24 @ 16:09 by Sabina Colindres MD) Cervical radiculopathy PATRICIA (obstructive sleep apnea) Cardiomyopathy Vertigo Stroke Cerebral infarction Hyperlipidemia History of TIA (transient ischemic attack) (~2013) History of cardiac arrest (~2019) Cardiac defibrillator in place Nonischemic cardiomyopathy Atherosclerotic cardiovascular disease Hypertension Hypercholesterolemia Restrictive lung disease COPD (chronic obstructive pulmonary disease) Cigarette nicotine dependence Nicotine dependence, cigarettes, uncomplicated Uncomplicated opioid dependence Chronic pain syndrome Rotator cuff arthropathy of both shoulders MRSA infection Surgical History History of implantable cardiac defibrillator (ICD) History of cardiac cath S/P insertion of spinal cord stimulator History of back surgery History of fusion of cervical spine History of repair of left rotator cuff History of repair of right rotator cuff History of cholecystectomy History of colonoscopy Family History Mother Multiple sclerosis Father Diabetes Amputat leg, bilat-complicated Sister Lupus Social History Household Members: Family Housing: House Do you presently have visiting nurse or other home services: No Alcohol intake: never Patient Tobacco Use Status: Current everyday Tobacco user Tobacco use type: Cigarette, Cigar and Smokeless Tobacco Cigarette Packs Per Day: 0.50 Cigarettes Per Day: 3 Years Smoked: (onset 9yo, 1/2-3ppd x 42yrs, now <1/4ppd - 30+PYH) e-Cigarette/Vaping Use: Currently Using Second Hand Smoke Exposure: Yes Advance Directives Date on File: 07/27/23 service: No Cognitive needs: No Hearing needs: No Vision needs: No Office Procedures Cardiac Device Check Cardiac Device Check Details: Date of service 07/19/2024; Battery life >11years; normal lead parameters; no treated VT/VF; VF without therapy mentioned on july 12, to review strip; normal ICD function. [id number] Cardiac Interrogation, implant defibrillator w/interim Procedure code (CPT) selection complete Assessment & Plan Assessment & Plan (1) Cardiac defibrillator in place: Comment: (s/p cardiac arrest 2019) Code(s): Z95.810 - Presence of automatic (implantable) cardiac defibrillator Category: Medical (2) NSVT (nonsustained ventricular tachycardia): Code(s): I47.29 - Other ventricular tachycardia Category: Medical Plan x Coding Level of Care Code Procedure Only Diagnoses Cardiac defibrillator in place Z95.810 NSVT (nonsustained ventricular tachycardia) I47.29 CPT Codes Cardiac Device Check - Cardiac Device 13: [id number] Cardiac Interrogation, implant defibrillator w/interim ([id number])
== END ==
PROVIDERS: PCP Internal Medicine; Visit Provider Internal Medicine
DX: I47.29 Other ventricular tachycardia (principal); Z95.810 Presence of automatic (implantable) cardiac defibrillator
CPT/HCPCS: 93295

== ENCOUNTER 2024-08-25 12:36 | Outpatient (AMB) | payer MEDICARE, MEDICAID, SELFPAY ==
--- NOTE | 2024-08-25 12:39 | A.OFFVIS_ITS ---
Vital Signs 08/25/24 12:40 Height 6 ft 2 in Weight 205 lb 0.478 oz BMI 26.3 BP 122/70 Blood Pressure Location Lt brachial Position Sitting Pulse 78 Pulse Source Pulse Oximeter Intake Visit Reasons: 6 mth f/up Allergies bupropion (From Wellbutrin) Allergy (Intermediate, Verified 07/16/24 13:05) Hives, Rage varenicline (From Chantix) Allergy (Intermediate, Verified 07/16/24 13:05) Agitation, Aggression codeine (Codeine) Allergy (Mild, Verified 07/16/24 13:05) HIVES/ITCHING methadone (Methadone) Allergy (Mild, Verified 07/16/24 13:05) HIVES/ITCHING Black Pepper-Turmeric Allergy (Unknown, Uncoded 06/28/24 15:40) Unknown Medication List - Last Reconciled 08/25/24 by Gunnar Tate MD albuterol sulfate 90 mcg/actuation (Ventolin HFA) 2 puffs inhalation Q4-6H PRN apixaban (Eliquis) 5 mg PO BID aspirin (Adult Aspirin Regimen) 81 mg PO DAILY atorvastatin 80 mg PO DAILY carvedilol (Coreg) 3.125 mg PO BID 30 days duloxetine 30 mg PO BEDTIME finasteride (Proscar) 5 mg PO DAILY lorazepam 1 mg PO BEDTIME PRN nitroglycerin 0.4 mg sublingual Q5M PRN pregabalin 50 mg PO BID sennosides (Senokot) 8.6 mg PO BID PRN HPI Comments Details: Daniel returns for follow-up. Complicated history. He carries a diagnosis of nonischemic cardiomyopathy. He was maintained on Coreg and lisinopril. Then he went to detention. While in detention he had a cardiac arrest-2019. Described as VT/VF. Then diagnosed with STEMI and underwent cardiac catheterization but there was no culprit lesion. Had ICD placed. In 2023, he was admitted for left-sided numbness/weakness. He was treated as acute stroke. He underwent thrombolytic treatment. Full recovery. Then Eliquis was added to aspirin. Then having low blood pressure issues and lot of his cardiac medications were stopped. After that, another hospitalization when he was transferred to [facility] for concerns of shortness of breath/atypical chest pains. Repeat catheterization but no significant findings. Another admission after that, when he had facial swelling and seen by vascular surgery at [facility] and diagnosed to have SVC syndrome for which he underwent thrombectomy/angioplasty. Since that discharge, he states he feels well. He has got no cardiac symptoms whatsoever. He has no dizziness or anything else of concern. No palpitations. No angina or shortness of breath. [facility] Medical History (Updated 06/28/24 @ 16:09 by Sabina Colindres MD) Cervical radiculopathy PATRICIA (obstructive sleep apnea) Cardiomyopathy Vertigo Stroke Cerebral infarction Hyperlipidemia History of TIA (transient ischemic attack) (~2013) History of cardiac arrest (~2019) Cardiac defibrillator in place Nonischemic cardiomyopathy Atherosclerotic cardiovascular disease Hypertension Hypercholesterolemia Restrictive lung disease COPD (chronic obstructive pulmonary disease) Cigarette nicotine dependence Nicotine dependence, cigarettes, uncomplicated Uncomplicated opioid dependence Chronic pain syndrome Rotator cuff arthropathy of both shoulders MRSA infection Surgical History History of implantable cardiac defibrillator (ICD) History of cardiac cath S/P insertion of spinal cord stimulator History of back surgery History of fusion of cervical spine History of repair of left rotator cuff History of repair of right rotator cuff History of cholecystectomy History of colonoscopy Family History Mother Multiple sclerosis Father Diabetes Amputat leg, bilat-complicated Sister Lupus Social History Household Members: Family Housing: House Do you presently have visiting nurse or other home services: No Alcohol intake: never Patient Tobacco Use Status: Current everyday Tobacco user Tobacco use type: Cigarette, Cigar and Smokeless Tobacco Cigarette Packs Per Day: 0.50 Cigarettes Per Day: 3 Years Smoked: (onset 9yo, 1/2-3ppd x 40yrs, now <1/4ppd - 30+PYH) e-Cigarette/Vaping Use: Currently Using Second Hand Smoke Exposure: Yes Advance Directives Date on File: 07/27/23 service: No Cognitive needs: No Hearing needs: No Vision needs: No Review of Systems Const Denies weakness ENT Denies dizziness Card Denies chest pain, Denies chest pain with activity, Denies syncope, Denies rapid heart rate, Denies pedal edema, Denies edema, Denies leg edema, Denies lightheadedness, Denies palpitations, Denies dyspnea, Denies dyspnea on exertion and Denies orthopnea Resp Denies cough, Denies dyspnea and Denies dyspnea on exertion GI Denies hematochezia and Denies change in stool character Musc Denies abnormal gait, Denies muscle cramps, Denies muscle weakness, Denies numbness, Denies radiating pain into limb and Denies tingling Neuro Denies abnormal gait, Denies dizziness, Denies syncope, Denies numbness, Denies tingling and Denies weakness Endo Denies palpitations Physical Exam Vital Signs: Last Vital Signs Pulse 78 08/25/24 12:40 BP 122/70 08/25/24 12:40 BMI result Body Mass Index 26.3 Const General: comfortable and no acute distress Orientation/consciousness: patient oriented x3 HEENT Other: Unremarkable Head: Yes normal to inspection Neck Neck: Yes normal visual inspection Chest Chest palpation & inspection: normal inspection of the chest Resp Auscultation: clear to auscultation bilaterally Cardio Palpation: normal PMI Heart sounds: S1 normal heart sound present, S2 normal heart sound present, no gallops, no murmurs and no rubs GI Palpation (GI): Soft to palpation Back/Spine/Pelvis Other: unremarkable Skin General skin exam: no rashes or lesions noted Neuro General: patient oriented x3 Extrem General: Yes normal to inspection Psych Mental Status: mental status grossly normal Assessment & Plan Assessment & Plan (1) Nonischemic cardiomyopathy: Code(s): I42.8 - Other cardiomyopathies Category: Medical Plan: Recent echocardiogram from [facility] with LVEF of 15-20%. In the prior study from [place], 35-40%. In the cardiac catheterization from 02/2024-ostial 30% stenosis in the LAD; normal left main and minimal irregularities elsewhere. Normal LVEDP. PCWP 30 mm Hg. RA of 8 mm Hg. PA mean 20 mm Hg. Hence his symptoms of shortness of breath/chest pain thought to be noncardiac. He has had dizziness type symptoms in the past but he states they are now completely resolved. He is tolerating Coreg. Try low-dose lisinopril where he has taken before. Labs couple of weeks after that and we discussed that today. There are already several orders. (2) Atherosclerotic cardiovascular disease: Code(s): I25.10 - Atherosclerotic heart disease of [place] coronary artery without angina pectoris Category: Medical Plan: Clinically no angina. On statins. Last LDL 67 mg/dL. (3) Cardioembolic stroke: Code(s): I63.9 - Cerebral infarction, unspecified Category: Medical Plan: On Eliquis. (4) Arterial hypotension: Code(s): I95.9 - Hypotension, unspecified Category: Medical Plan: Previously, taken off Coreg, lisinopril, spironolactone. Seems stable now. Plans for Coreg/lisinopril as above. (5) SVC obstruction: Code(s): I87.1 - Compression of vein Category: Medical Plan: To follow-up with vascular surgery at [facility]. Plan Discussion Notes I discussed with the patient the importance of continuing Coreg and restarting lisinopril to manage his cardiac problems. We reviewed the need for ongoing Eliquis therapy for thrombosis and the plan for regular clinic visits. I advised him to conduct blood work to monitor kidney function and potassium levels after starting lisinopril. We updated his pharmacy information to ensure medication refills are sent to the correct location due to his move. A follow-up appointment is scheduled in six months, including an echocardiogram to assess cardiovascular health. Patient was informed and verbally consented to the use of an ambient scribe for clinic note documentation during this visit. Orders: Orders CA echo transthoracic complete 6 Months I42.9 - Cardiomyopathy, unspecified Medications: New lisinopril 2.5 mg PO DAILY 90 tabs 1RF Patient Instructions: - Continue taking Coreg as prescribed. - Restart lisinopril at 2.5 mg as advised. - Continue Eliquis for thrombosis management. - Complete blood work in two weeks to check kidney function and potassium levels. - Update pharmacy details for medication refills. - Schedule a follow-up appointment in six months with an echocardiogram. Coding Level of Care Code Est Pt Level 4 (49245) Complex EM visit Add On G2211 Diagnoses Nonischemic cardiomyopathy I42.8 Atherosclerotic cardiovascular disease I25.10 Cardioembolic stroke I63.9 Arterial hypotension I95.9 SVC obstruction I87.1
[2024-08-25 12:40] VITALS: BP 122/70; PULSE 78; BMI 26.3
--- OUTSIDE RECORDS SUMMARY | 2024-08-25 14:39 | XMS_ITS | Clinical Summary ---
Author Organization [facility] [employer] [facility] Address [address] [place] [address] Phone Care Team Providers Care Workers' Compensation Claims Supervisor Name Role Phone Sabina Colindres MD Primary Care Provider [phone] Social History Tobacco Use Types Packs/Day Years [...] Insurance MEDICARE MEDICAID - [place] Care Teams Workers' Compensation Claims Supervisor Relationship Specialty Start Date End Date Sabina Colindres MD [address] [place] [address] PCP - General Internal Medicine 07/08/24
== END 2024-08-25 13:22 | disposition home or self-care (01) ==
LOC: HO.HCS 12:37
PROVIDERS: Visit Provider Internal Medicine
DX: I42.8 Other cardiomyopathies (principal); I25.10 Atherosclerotic heart disease of native coronary artery without angina pectoris; I63.9 Cerebral infarction, unspecified; I95.9 Hypotension, unspecified; I87.1 Compression of vein
CPT/HCPCS: 99214; G2211

== ENCOUNTER → 2024-08-25 12:36 | Outpatient (BNVA) | payer MEDICARE, MEDICAID, SELFPAY | PROVIDERS: Visit Provider Internal Medicine | DX: G47.33 Obstructive sleep apnea (adult) (pediatric) (principal); J43.9 Emphysema, unspecified; R05.9 Cough, unspecified; F17.210 Nicotine dependence, cigarettes, uncomplicated; I42.8 Other cardiomyopathies; I25.10 Atherosclerotic heart disease of native coronary artery without angina pectoris; I95.9 Hypotension, unspecified; I87.1 Compression of vein; Z79.01 Long term (current) use of anticoagulants; Z79.82 Long term (current) use of aspirin; Z86.73 Personal history of transient ischemic attack (TIA), and cerebral infarction without residual deficits | CPT/HCPCS: 99212 ==

== ENCOUNTER 2024-08-25 15:12 | Outpatient (AMB) | payer MEDICARE, MEDICAID, SELFPAY ==
[2024-08-25 15:24] VITALS: BP 110/70; PULSE 107; O2SAT 67; BMI 26.9
--- NOTE | 2024-08-25 15:24 | MHC.OFFVIS ---
Vital Signs 08/25/24 15:24 Height 6 ft 2 in Weight 209 lb 7.026 oz BMI 26.9 BP 110/70 Blood Pressure Location Lt brachial Position Sitting Pulse 107 H Pulse Source Pulse Oximeter Pulse Oximetry (%) 67 L Oxygen Delivery Method Room Air Intake Visit Reasons: COPD Intake Note: pt is here for follow up and states he is moving and has his cpap packed, and will restart as soon as he is able. Field Collector Required: No Allergies bupropion (From Wellbutrin) Allergy (Intermediate, Verified 08/25/24 15:39) Hives, Rage varenicline (From Chantix) Allergy (Intermediate, Verified 08/25/24 15:39) Agitation, Aggression codeine (Codeine) Allergy (Mild, Verified 08/25/24 15:39) HIVES/ITCHING methadone (Methadone) Allergy (Mild, Verified 08/25/24 15:39) HIVES/ITCHING Black Pepper-Turmeric Allergy (Unknown, Uncoded 08/25/24 15:39) Unknown Medication List - Last Reconciled 08/25/24 by Mare Escobar MD albuterol sulfate 90 mcg/actuation (Ventolin HFA) 2 puffs inhalation Q4-6H PRN apixaban (Eliquis) 5 mg PO BID aspirin (Adult Aspirin Regimen) 81 mg PO DAILY atorvastatin 80 mg PO DAILY carvedilol (Coreg) 3.125 mg PO BID 30 days duloxetine 30 mg PO BEDTIME finasteride (Proscar) 5 mg PO DAILY lisinopril 2.5 mg PO DAILY lorazepam 1 mg PO BEDTIME PRN nitroglycerin 0.4 mg sublingual Q5M PRN pregabalin 50 mg PO BID sennosides (Senokot) 8.6 mg PO BID PRN Do you need a note to return to daycare/school/sports/work: No HPI HPI COPD: Details: This 54 years old gentleman, is back for follow-up after getting the CPAP. He used only 2 days and on those 2 days he did well. But then packed up the CPAP again . Now he will be living in his trailer and will start using the CPAP in that. He does show motivation and determination to use the CPAP. Still smoking about 3-4 cigarettes a day, also vaping a few times a day. Has intermittent cough especially in the morning, denies any shortness of breath on exertion and denies any wheezing. Does use albuterol once or twice a day. [facility] Medical History Cervical radiculopathy PATRICIA (obstructive sleep apnea) Cardiomyopathy Vertigo Stroke Cerebral infarction Hyperlipidemia History of TIA (transient ischemic attack) (~2013) History of cardiac arrest (~2019) Cardiac defibrillator in place Nonischemic cardiomyopathy Atherosclerotic cardiovascular disease Hypertension Hypercholesterolemia Restrictive lung disease COPD (chronic obstructive pulmonary disease) Cigarette nicotine dependence Nicotine dependence, cigarettes, uncomplicated Uncomplicated opioid dependence Chronic pain syndrome Rotator cuff arthropathy of both shoulders MRSA infection Surgical History History of implantable cardiac defibrillator (ICD) History of cardiac cath S/P insertion of spinal cord stimulator History of back surgery History of fusion of cervical spine History of repair of left rotator cuff History of repair of right rotator cuff History of cholecystectomy History of colonoscopy Family History Mother Multiple sclerosis Father Diabetes Amputat leg, bilat-complicated Sister Lupus Social History Household Members: Family Housing: House Do you presently have visiting nurse or other home services: No Alcohol intake: never Patient Tobacco Use Status: Current everyday Tobacco user Tobacco use type: Cigarette, Cigar and Smokeless Tobacco Cigarette Packs Per Day: 0.50 Cigarettes Per Day: 3 Years Smoked: (onset 9yo, 1/2-3ppd x 42yrs, now <1/4ppd - 30+PYH) e-Cigarette/Vaping Use: Currently Using Second Hand Smoke Exposure: Yes Advance Directives Date on File: 07/27/23 service: No Cognitive needs: No Hearing needs: No Vision needs: No Review of Systems Const All systems reviewed & are unremarkable except as noted in HPI and below Eyes Reports no additional complaints ENT Reports no additional complaints Card Denies chest pain at rest and Denies leg edema Resp Reports as per HPI GI Reports no additional complaints Reports no additional complaints Musc Reports no additional complaints Skin/Breast Reports system reviewed and no additional complaints, except as documented Neuro Reports no additional complaints Psych Reports no additional complaints Physical Exam Vital Signs: Last Vital Signs Pulse 107 H 08/25/24 15:24 BP 110/70 08/25/24 15:24 Pulse Ox 67 L 08/25/24 15:24 Oxygen Delivery Method Room Air 08/25/24 15:24 BMI result Body Mass Index 26.9 Const General: comfortable (Somewhat anxious), no acute distress, alert and awake Orientation/consciousness: patient oriented x3 HEENT Head: Yes normal to inspection General nose exam: No nasal polyps present and No nasal discharge present Face and sinus: Yes sinuses nontender Mouth: oropharynx normal Throat: Yes posterior oropharynx normal Eyes General: appearance normal, both eyes and all related structures Neck Neck: Yes normal visual inspection, Yes no lymphadenopathy, Yes trachea midline and Yes no JVD Thyroid: Thyroid normal Chest Chest palpation & inspection: normal inspection of the chest, normal palpation of entire chest wall and no tenderness Resp Other: Percussion note is resonant, breath sounds are slightly distant with prolonged expiratory phase. NO WHEEZES OR CREPITATIONS ARE HEARD. Cardio Palpation: normal PMI Rate: regular rate Rhythm: regular rhythm and other (Pacemaker battery in the left pectoral area) Heart sounds: no gallops and no murmurs GI Palpation (GI): Soft to palpation, nontender, No hepatosplenomegaly present and no masses Auscultation: normal bowel sounds Back/Spine/Pelvis Thoracic/Lumbar Spine: thoracic and lumbar spine normal to inspection and thoraco-lumbar ROM limited Skin Other: Extensive tattoos General skin exam: no rashes or lesions noted Neuro General: patient oriented x3 and no focal motor deficits Cranial nerves: Yes CN's II-XII intact bilaterally Extrem General: Yes normal to inspection, Yes no clubbing, cyanosis or edema and Yes no calf tenderness Psych Appearance: grossly normal and well kempt Speech and movement: Normal speech and movement present Results Reviewed Results Reviewed: CPAP compliance report is printed. It indicates that he used only 2 nights. Only for 2-1/2 hours each time. Assessment & Plan Assessment & Plan (1) COPD (chronic obstructive pulmonary disease): Comment: COPD secondary to ongoing smoking. However as per PFT, it is mild and his problem is mostly restrictive lung disease. Code(s): J44.9 - Chronic obstructive pulmonary disease, unspecified Category: Medical Qualifiers: COPD type: emphysema Emphysema type: unspecified Qualified Code(s): J43.9 - Emphysema, unspecified Plan: Advised to use albuterol 2 puffs Q 4-6 hours only p.r.n.. (2) Cough: Comment: He has mild to moderate degree of cough especially in the morning, this is due to chronic bronchitis , resulting from smoking Code(s): R05.9 - Cough, unspecified Category: Medical Plan: Explained that the cough would resolve only when he stop smoking completely. In the meantime he may use Mucinex 600 mg b.i.d. p.r.n. or Robitussin 2 tsp t.i.d. p.r.n. (3) Nicotine dependence, cigarettes, uncomplicated: Comment: (current smoker - onset 9yo, 1/2-3ppd x 42yrs, now <1/4ppd - 30+PYH) Today he claims that he is smoking only about 3 cigarettes a day and also vaping up to 3 times a day. Code(s): F17.210 - Nicotine dependence, cigarettes, uncomplicated Category: Medical Plan: Advise that he should try to quit smoking completely as soon as possible (4) PATRICIA (obstructive sleep apnea): Comment: Home-based sleep study in July 2023 was positive for sleep apnea. It was considered mild, but I think he continues to have symptoms of sleep apnea. In view of his multiple comorbidities, I decided to put him on CPAP, but he is having difficulty in using it. In the last month he has used only on 2 nights and only for a few hours per night. He states that right now he does not have a stable place to live. He now plans to live in his trailer, and will on pack the CPAP and start using it regularly. Code(s): G47.33 - Obstructive sleep apnea (adult) (pediatric) Category: Medical Plan: Advise that he should start using CPAP regularly as soon as he can Will recheck him in 2 months. Coding Level of Care Code Est Pt Level 3 (80898) Diagnoses Pulmonary emphysema, unspecified emphysema type J43.9 COPD type: emphysema Emphysema type: unspecified Cough R05.9 Nicotine dependence, cigarettes, uncomplicated F17.210 PATRICIA (obstructive sleep apnea) G47.33
== END 2024-08-27 10:26 | disposition home or self-care (01) ==
LOC: HO.HPS 15:12
PROVIDERS: PCP Internal Medicine; Visit Provider Internal Medicine
DX: J43.9 Emphysema, unspecified (principal); R05.9 Cough, unspecified; F17.210 Nicotine dependence, cigarettes, uncomplicated; G47.33 Obstructive sleep apnea (adult) (pediatric)
CPT/HCPCS: 99213

== ENCOUNTER 2024-10-11 15:50 | Outpatient (AMB) | payer MEDICARE, MEDICAID, SELFPAY ==
--- OUTSIDE RECORDS SUMMARY | 2024-10-11 15:53 | XMS_ITS | Clinical Summary ---
Author Organization [facility] Address [address] [place] [address] Phone Care Team Providers Care Lens Cutter Name Role Phone Sabina Colindres MD Primary Care Provider [phone] Social History Tobacco Use Types Packs/Day Years [...] Vaccine ( - 2023-2 5 season) 2023 Depression Screening 03/03/2024 Cholesterol Screening (Lipid Panel) 07/08/2024 Colorectal Cancer Screening: Colonoscopy 07/08/2024 HIV Screening 07/08/2024 Hepatitis C Screening 07/08/2024 Medicare Annual Wellness Visit 07/08/2024 Social Influencers of Health Screening 07/08/2024 Influenza Vaccine (#1) 2024 HIB Vaccines Aged Out No longer [...] Insurance MEDICARE [place]ICA[place] - [place] Care Teams Lens Cutter Relationship Specialty Start Date End Date Sabina Colindres MD [address] [place] [address] PCP - General Internal Medicine 07/08/24
--- NOTE | 2024-10-11 15:56 | A.OFFPC_ITS ---
Vital Signs 10/11/24 15:57 Height 6 ft 2 in Weight 204 lb 2 oz BMI 26.2 BP 140/80 H Blood Pressure Location Lt brachial Position Sitting Pulse 106 H Pulse Source Pulse Oximeter Temp 97.1 F Temp Source Temporal Artery Scan Pulse Oximetry (%) 98 Oxygen Delivery Method Room Air Intake Visit Reasons: 3mth f/u Intake Note: Patient is here to follow up on HTN, COPD, Chornic pain, Hypercholesterolemia. Complaint of chest pain for the last one week Online Merchandising Coordinator Required: No Dry Ice Maker: Not Required per policy Accompanied by: Self / Same As Patient Allergies bupropion (From Wellbutrin) Allergy (Intermediate, Verified 10/11/24 16:54) Hives, Rage varenicline (From Chantix) Allergy (Intermediate, Verified 10/11/24 16:54) Agitation, Aggression codeine (Codeine) Allergy (Mild, Verified 10/11/24 16:54) HIVES/ITCHING methadone (Methadone) Allergy (Mild, Verified 10/11/24 16:54) HIVES/ITCHING Black Pepper-Turmeric Allergy (Unknown, Uncoded 10/11/24 15:57) Unknown Tobacco use date assessed: 10/11/24 Dental Screening Dental Screen Date: 03/29/24 HPI 3mth f/u HPI Details Patient has been having the intermittent chest pain for 1 week and with this prompted for consultation. Patient denies chest pain as tenderness on the chest on palpation denies any pain on moving the arm denies any increasing shortness a breath. With the patient's history was advised patient to go to the ER. Patient declined EMT/or wheelchair to be placed in the ER and wants to go by himself. [facility] Medical History Cervical radiculopathy PATRICIA (obstructive sleep apnea) Cardiomyopathy Vertigo Stroke Cerebral infarction Hyperlipidemia History of TIA (transient ischemic attack) (~2013) History of cardiac arrest (~2019) Cardiac defibrillator in place Nonischemic cardiomyopathy Atherosclerotic cardiovascular disease Hypertension Hypercholesterolemia Restrictive lung disease COPD (chronic obstructive pulmonary disease) Cigarette nicotine dependence Nicotine dependence, cigarettes, uncomplicated Uncomplicated opioid dependence Chronic pain syndrome Rotator cuff arthropathy of both shoulders MRSA infection Surgical History History of implantable cardiac defibrillator (ICD) History of cardiac cath S/P insertion of spinal cord stimulator History of back surgery History of fusion of cervical spine History of repair of left rotator cuff History of repair of right rotator cuff History of cholecystectomy History of colonoscopy Family History Mother Multiple sclerosis Father Diabetes Amputat leg, bilat-complicated Sister Lupus Social History (Updated 10/11/24 @ 16:02 by SANJIV Sampson) Household Members: Family Housing: House Do you presently have visiting nurse or other home services: No Alcohol intake: current Alcohol intake frequency: a few times a month Alcohol type: beer Patient Tobacco Use Status: Current everyday Tobacco user Tobacco use type: Cigarette, Cigar and Smokeless Tobacco Cigarette Packs Per Day: 0.5 Cigarettes Per Day: 10 Years Smoked: (onset 9yo, 1/2-3ppd x 42yrs, now <1/4ppd - 30+PYH) e-Cigarette/Vaping Use: Currently Using Second Hand Smoke Exposure: Yes Advance Directives: Yes Advance Directives on File: Yes Advance Directives Date on File: 07/27/23 service: No Cognitive needs: No Hearing needs: No Vision needs: Yes (Glasses) Questionnaire Thrive Questionnaire Date Thrive assessed: 06/28/24 I am a: Patient What is your living situation today?: I choose not to answer this question Within the past 12 months, did the food you bought not last and you didn't have the money to get more?: I choose not to answer this question Within the past 12 months, did you worry whether your food would run out before you got money to buy more?: I choose not to answer this question Do you have trouble paying for medicines?: I choose not to answer this question Do you have trouble getting transportation to medical appointments?: I choose not to answer this question Do you have trouble paying your heating and electricity bill?: I choose not to answer this question Do you have trouble taking care of your child, family member or friend?: I choose not to answer this question Do you have trouble with day-to-day activities such as bathing, preparing meals, shopping, managing finances, etc.?: I choose not to answer this question Are you currently unemployed and looking for a job?: I choose not to answer this question Are you interested in more education?: I choose not to answer this question Please select the resources that you would like help with: None Currently or been in a relationship where the following occur: I choose not to answer THRIVE Score: 0 COLETTE-7 AMB Questionnaire COLETTE-7 Date COLETTE - 7 assessed: 03/29/24 Source: Developed by Drs. King Macias, Melissa Aguilar, Mohan Lovett and colleagues, with an educational cosmo from [employer]. Physical exam (Primary Care) Vital Signs: Last Vital Signs Temp 97.1 F 10/11/24 15:57 Pulse 106 H 10/11/24 15:57 BP 140/80 H 10/11/24 15:57 Pulse Ox 98 10/11/24 15:57 Oxygen Delivery Method Room Air 10/11/24 15:57 BMI result Body Mass Index 26.2 Tobacco/Smoking Status: Tobacco use Status Tobacco use date assessed 10/11/24 10/11/24 16:03 Patient Tobacco Use Status Current everyday Tobacco 10/11/24 16:03 Tobacco use type Cigarette,Cigar,Smokeless 10/11/24 16:03 Tobacco e-Cigarette/Vaping Use Currently Using 10/11/24 16:03 Thrive Assessment: Date of Thrive Assessment Date Thrive assessed 06/28/24 10/11/24 16:03 Currently or been in a relationship where the following occur: I choose not to answer Const General: alert; No acute distress Eyes Conjunctivae: conjunctivae normal Resp Auscultation: clear to auscultation bilaterally Cardio Rate: regular rate Rhythm: regular rhythm GI Inspection: Yes normal to inspection Extrem General: Yes normal to inspection and No edema Coding Level of Care Code Est Pt Level 4 (55854) Diagnoses Cardiomyopathy I42.9 Atherosclerotic cardiovascular disease I25.10 SVC obstruction I87.1 Pulmonary emphysema, unspecified emphysema type J43.9 COPD type: emphysema Emphysema type: unspecified PATRICIA (obstructive sleep apnea) G47.33 Failed back syndrome, cervical M96.1 Nicotine dependence, cigarettes, uncomplicated F17.210 Chest pain R07.9 Assessment & Plan Assessment & Plan (1) Cardiomyopathy: Comment: 06/2024 ef 15-20 % Code(s): I42.9 - Cardiomyopathy, unspecified Category: Medical Plan: Continue with carvedilol 3.125 mg twice a day (2) Atherosclerotic cardiovascular disease: Code(s): I25.10 - Atherosclerotic heart disease of agdaagux coronary artery without angina pectoris Category: Medical Plan: Control the cholesterol, weight, blood pressure, continue with anticoagulation (3) SVC obstruction: Comment: SVC thrombectomy and angioplasty percutaneous through right IJ access 06/15/2024 Code(s): I87.1 - Compression of vein Category: Medical Plan: Patient follows up with the vascular surgeon and continuing with anticoagulation (4) COPD (chronic obstructive pulmonary disease): Comment: COPD secondary to ongoing smoking. However as per PFT, it is mild and his problem is mostly restrictive lung disease. Code(s): J44.9 - Chronic obstructive pulmonary disease, unspecified Category: Medical Qualifiers: COPD type: emphysema Emphysema type: unspecified Qualified Code(s): J43.9 - Emphysema, unspecified Plan: Continue with the inhaler as per Pulmonary. (5) PATRICIA (obstructive sleep apnea): Comment: Home-based sleep study in July 2023 was positive for sleep apnea. It was considered mild, but I think he continues to have symptoms of sleep apnea. In view of his multiple comorbidities, I decided to put him on CPAP, but he is having difficulty in using it. In the last month he has used only on 2 nights and only for a few hours per night. He states that right now he does not have a stable place to live. He now plans to live in his trailer, and will on pack the CPAP and start using it regularly. Code(s): G47.33 - Obstructive sleep apnea (adult) (pediatric) Category: Medical Plan: Patient is strongly advised continue with the CPAP more than 4 hours a night and benefits from this (6) Failed back syndrome, cervical: Code(s): M96.1 - Postlaminectomy syndrome, not elsewhere classified Category: Medical Plan: Patient has seen the neurosurgeon and has a planned fusion. (7) Nicotine dependence, cigarettes, uncomplicated: Comment: (current smoker - onset 9yo, 1/2-3ppd x 42yrs, now <1/4ppd - 30+PYH) Today he claims that he is smoking only about 3 cigarettes a day and also vaping up to 3 times a day. Code(s): F17.210 - Nicotine dependence, cigarettes, uncomplicated Category: Medical Plan: Patient is strongly advised to stop smoking (8) Chest pain: Code(s): R07.9 - Chest pain, unspecified Category: Medical Plan: With the ongoing chest pain patient was advised to be in the emergency room. Did call daughter who is working in the hospital. Patient declined wheelchair nor EMT. ER has been notified Plan History of Present Illness The patient is a 54-year-old male presenting with intermittent chest pain for one week. The patient has a history of Chronic Obstructive Pulmonary Disease (COPD) and continues to use albuterol as needed. He has been advised to stop smoking, which is a contributing factor to his COPD. The patient has a history of lumbar postlaminectomy syndrome and C3-C4 disc degeneration, which causes pain and radiculopathy. He has been advised to undergo anterior cervical discectomy and fusion (ACDF) at C3-C4. The patient has a history of hypertension, hypercholesterolemia, and atherosclerotic cardiovascular disease. He experienced a cardiac arrest in 2019 and has an implantable cardioverter-defibrillator (ICD). His last echocardiogram in June 2024 showed an ejection fraction of 15-20%, indicating cardiomyopathy. The patient has a history of obstructive sleep apnea and is advised to use CPAP for more than 4 hours a night. The patient has a history of superior vena cava (SVC) obstruction and underwent thrombectomy and angioplasty in June 2024. A CT venogram in July 2024 showed moderate narrowing of the SVC above the cavoatrial junction. The patient has a left renal cyst identified on ultrasound, with a normal post-void bladder residual volume. Health Maintenance - Advised to stop smoking to improve COPD and overall cardiovascular health - Use CPAP for more than 4 hours a night for obstructive sleep apnea management Social History - Substance Use: History of smoking, advised to quit Review of Systems - Cardiovascular: Reports intermittent chest pain for one week. Denies pain upon palpation of the chest area. - Respiratory: Reports no improvement with inhaler use. Denies cough or sputum production. - Neurological: Reports numbness in the hand when writing for five minutes. Physical Exam - Cardiovascular: EKG performed, no significant changes from s EKG - Musculoskeletal: No pain upon palpation of the chest area Results - Echocardiogram (June 2024): Ejection fraction 15-20% - CT Venogram (July 2024): Moderate narrowing of the SVC above the cavoatrial junction - Ultrasound: 1.1 cm left renal cyst, normal post-void bladder residual volume Plan The patient is advised to continue using albuterol as needed for COPD management and to stop smoking to improve respiratory and cardiovascular health. For the lumbar postlaminectomy syndrome and C3-C4 disc degeneration, the patient is advised to undergo anterior cervical discectomy and fusion ACDF) at C3-C4. The patient should continue with CPAP therapy for obstructive sleep apnea, ensuring usage for more than 4 hours a night. For the superior vena cava SVC) obstruction, the patient underwent thrombectomy and angioplasty in June 2024, and a CT venogram in July 2024 showed moderate narrowing of the SVC above the cavoatrial junction. The patient is advised to follow up with the vascular surgeon and continue anticoagulation therapy. Patient was informed and verbally consented to the use of an ambient scribe for clinic note documentation during this visit. Discussion Notes I discussed with the patient the importance of continuing albuterol for COPD and the need to quit smoking to improve his respiratory and cardiovascular health. We reviewed the plan for anterior cervical discectomy and fusion (ACDF) at C3-C4 for his lumbar postlaminectomy syndrome and C3-C4 disc degeneration. I emphasized the importance of using CPAP for more than 4 hours a night for obstructive sleep apnea management. We discussed the recent thrombectomy and angioplasty for SVC obstruction and the need for ongoing anticoagulation therapy. Patient Instructions - Continue using albuterol as needed for COPD. - Quit smoking to improve lung and heart health. - Use CPAP for more than 4 hours each night. - Follow up with the vascular surgeon and continue anticoagulation therapy.
[2024-10-11 15:57] VITALS: BP 140/80; PULSE 106; TEMP 36.2; O2SAT 98; BMI 26.2
== END 2024-10-11 17:28 | disposition home or self-care (01) ==
LOC: HO.HMCH 15:51
PROVIDERS: Visit Provider Internal Medicine
DX: I42.9 Cardiomyopathy, unspecified (principal); I25.10 Atherosclerotic heart disease of native coronary artery without angina pectoris; I87.1 Compression of vein; J43.9 Emphysema, unspecified; G47.33 Obstructive sleep apnea (adult) (pediatric); M96.1 Postlaminectomy syndrome, not elsewhere classified; F17.210 Nicotine dependence, cigarettes, uncomplicated; R07.9 Chest pain, unspecified

== ENCOUNTER 2024-10-11 16:36 | Emergency (ER) | payer MEDICARE, MEDICAID, SELFPAY ==
--- NOTE | ~2024-10-11 | CT_ITS ---
CLINICAL HISTORY: chest pain, concern for recurr SVC clot CT chest with contrast Comparison: CT/SR - CT CHEST W IV CON - 06/13/24 19:35 EDT Findings: SVC is patent. At the level of the confluence of the right internal jugular vein and subclavian vein, there is a filling defect on the lateral side where the subclavian vein merges with the internal jugular vein. This could be contrast mixing artifact or thrombus. Left brachiocephalic vein is patent. Left subclavian vein is not well opacified and could also be contrast mixing artifact however clot can not be excluded. These can be assessed on ultrasound if needed. The heart is normal size. Normal RV/LV ratio. No pericardial effusion. Left subclavian ICD with lead in the right ventricle. The visualized thyroid and mediastinum are unremarkable. Mild dependent atelectasis. No consolidation, pleural effusion or pneumothorax. The upper abdomen is unremarkable. The bones are intact. IMPRESSION: SVC is patent. At the level of the confluence of the right internal jugular vein and subclavian vein, there is a filling defect on the lateral side where the subclavian vein merges with the internal jugular vein. This could be contrast mixing artifact or thrombus. Left brachiocephalic vein is patent. Left subclavian vein is not well opacified and could also be contrast mixing artifact however clot can not be excluded. These can be assessed on ultrasound if needed. This document has been electronically signed by: Haris Dumnot MD on 10/11/2024 21:22:17
--- NOTE | 2024-10-11 16:39 | ECG_ITS ---
Test Reason : CP Blood Pressure : */* mmHG Vent. Rate : 94 BPM Atrial Rate : 94 BPM P-R Int : 142 ms QRS Dur : 92 ms QT Int : 372 ms P-R-T Axes : 48 -50 2 degrees QTcB Int : 465 ms Normal sinus rhythm Left axis deviation Septal infarct (cited on or before 25-Jul-2023) Abnormal ECG When compared with ECG of 13-Jun-2024 17:18, No significant changes seen Referred By: Rissa Lance Electronically Signed By: Jcarlos Patterson
--- NOTE | 2024-10-11 16:46 | ED.GENADULT ---
HPI - General Adult General Chief complaint: Chest Pain Stated complaint: CP, Numbness in neck Time Seen by Provider: 10/11/24 18:58 History of Present Illness ED Provider: Russell Markham MD HPI narrative: 54 M hx COPD (not on home O2), NICM s/p AICD EF 30-35% left heart catheterization without coronary disease,, hx sudden cardiac arrest failed back syndrome, previous narcotic abuse, CVA who presented with acute onset neck and facial swelling and underwent SVC thrombectomy and angioplasty percutaneously through right IJ access on 06/15/2024 - Today presents with intermittent chest pains radiating to the jaw for the past week. Related Data Home Medications ?Medication ?Instructions ?Recorded ?Confirmed aspirin 81 mg tablet,delayed 81 mg PO DAILY 06/25/24 08/25/24 release (Adult Aspirin Regimen) Previous Rx's ?Medication ?Instructions ?Recorded albuterol sulfate 90 mcg/actuation 2 puff inhalation Q4-6H PRN 10/11/23 aerosol inhaler (Ventolin HFA) Wheezing #8.5 grams duloxetine 30 mg capsule,delayed 30 mg PO BEDTIME #30 caps 02/26/24 release apixaban 5 mg tablet (Eliquis) 5 mg PO BID #180 tabs 03/22/24 finasteride 5 mg tablet (Proscar) 5 mg PO DAILY #90 tabs 03/26/24 atorvastatin 80 mg tablet 80 mg PO DAILY #90 tabs 03/29/24 nitroglycerin 0.4 mg sublingual 0.4 mg sublingual Q5M PRN chest 03/29/24 tablet pain #20 tabs carvedilol 3.125 mg tablet (Coreg) 3.125 mg PO BID 30 days #60 tabs 06/25/24 sennosides 8.6 mg tablet (Senokot) 8.6 mg PO BID PRN constipation #60 06/28/24 tabs pregabalin 50 mg capsule 50 mg PO BID #60 caps 08/12/24 lisinopril 2.5 mg tablet 2.5 mg PO DAILY #90 tabs 08/25/24 lorazepam 1 mg tablet 1 mg PO BEDTIME PRN anxiety #30 09/20/24 tabs Allergies Allergy/AdvReac Type Severity Reaction Status Date / Time bupropion (From Wellbutrin) Allergy Intermediate Hives, Rage Verified 10/11/24 16:54 varenicline (From Chantix) Allergy Intermediate Agitation, Verified 10/11/24 16:54 Aggression codeine (Codeine) Allergy Mild HIVES/ITCHI Verified 10/11/24 16:54 NG methadone (Methadone) Allergy Mild HIVES/ITCHI Verified 10/11/24 16:54 NG Black Pepper-Turmeric Allergy Unknown Unknown Uncoded 10/11/24 15:57 PMFSH Past Medical History Medical History Cervical radiculopathy PATRICIA (obstructive sleep apnea) Cardiomyopathy Vertigo Stroke Cerebral infarction Hyperlipidemia History of TIA (transient ischemic attack) (~2013) History of cardiac arrest (~2019) Cardiac defibrillator in place Nonischemic cardiomyopathy Atherosclerotic cardiovascular disease Hypertension Hypercholesterolemia Restrictive lung disease COPD (chronic obstructive pulmonary disease) Cigarette nicotine dependence Nicotine dependence, cigarettes, uncomplicated Uncomplicated opioid dependence Chronic pain syndrome Rotator cuff arthropathy of both shoulders MRSA infection Surgical History History of implantable cardiac defibrillator (ICD) History of cardiac cath S/P insertion of spinal cord stimulator History of back surgery History of fusion of cervical spine History of repair of left rotator cuff History of repair of right rotator cuff History of cholecystectomy History of colonoscopy Family History Family History Mother Multiple sclerosis Father Diabetes Amputat leg, bilat-complicated Sister Lupus Social History Social History (Updated 10/11/24 @ 16:02 by SANJIV Sampson) Household Members: Family Housing: House Do you presently have visiting nurse or other home services: No Alcohol intake: current Alcohol intake frequency: does not drink Alcohol type: beer Patient Tobacco Use Status: Current everyday Tobacco user Tobacco use type: Cigarette, Cigar and Smokeless Tobacco Cigarette Packs Per Day: 0.5 Cigarettes Per Day: 10 Years Smoked: (onset 9yo, 1/2-3ppd x 42yrs, now <1/4ppd - 30+PYH) e-Cigarette/Vaping Use: Currently Using Second Hand Smoke Exposure: Yes Advance Directives Date on File: 07/27/23 service: No Cognitive needs: No Hearing needs: No Vision needs: Yes (Glasses) Physical Exam ED Exam Exam: EXAM: Gen: Alert, awake, well appearing, well hydrated. Head: Atraumatic Eyes: Anicteric, Normal conjunctiva. ENT: Moist mucosa, no pallor. ? Neck: Supple. Skin: ?No observable rash or bruising on exposed or examined skin Respiratory: Breathing comfortably, No distress.Clear to auscultation bilaterally, symmetric chest expansion, No wheeze, rales, ronchi. Cardiovascular: Regular rate and rhythm. No murmurs or rub. Well perfused periphery, warm extremities. No edema. ? Abdominal: No focal tenderness. Soft, no objective distension. No palpable masses or obvious organomegaly. ?No guarding, no rebound tenderness or other peritoneal findings. : No flank tenderness. Neuro: Alert. Gross movement of all extremities intact. ? Psych: Calm. Cooperative. MSK: No grossly visible deformity. Vital signs: See flowsheet Vital Signs: Vital Signs - 24 hr 10/11/24 16:52 10/11/24 18:48 10/11/24 20:45 Temperature 97.3 F 98.3 F 97.3 F Pulse Rate 95 79 82 Respiratory Rate 20 15 17 Blood Pressure 114/72 112/76 126/73 Pulse Oximetry 98 96 98 Oxygen Delivery Method Room Air Room Air Room Air 10/11/24 23:16 10/11/24 23:34 Temperature 96.9 F 96.9 F Pulse Rate 83 83 Respiratory Rate 14 14 Blood Pressure 115/79 115/79 Pulse Oximetry 95 95 Oxygen Delivery Method Room Air Room Air BMI result Body Mass Index 26.3 Course Course Course Narrative: This is a rapid medical exam performed by Mar Lance NP: Additional HPI, ROS, PE not included below will be deferred to primary provider. Patient is a 54-year-old male with pmhx of SVC obstruction, cardiac arrest, s/p cardiac cath, cardiomyopathy, PATRICIA, cardioembolic stroke, defibrillator, HTN, COPD, restrictive lung disease presenting to the ED with one week of chest pain and left sided numbness to neck. Plan: EKG, labs, will defer imaging to primary provider Medications Administered Discontinued Medications Generic Name Dose Route Start Last Admin Trade Name Freq PRN Reason Stop Dose Admin Hydromorphone HCl 0.5 mg 10/11/24 22:24 10/11/24 22:29 Hydromorphone Hcl 0.5 Mg/0.5 Ml Syringe IVPUSH 10/11/24 22:25 0.5 mg ONCE ONE Administration Protocol Iohexol 100 ml 10/11/24 20:42 10/11/24 20:42 Iohexol 350 Mg/Ml 100 Ml Infus..Btl IV 10/11/24 20:43 100 ml ONCE ONE Administration Morphine Sulfate 4 mg 10/11/24 20:45 10/11/24 20:51 Morphine Sulfate 4 Mg/Ml Cartridge IVPUSH 10/11/24 20:46 4 mg ONCE ONE Administration Protocol Procedures Procedure Narrative Procedure Narrative: EMERGENCY ULTRASOUND INTERPRETATION-Limited Echocardiography [This study was ordered, performed, and interpreted by myself. The study reveals: Impression: NORMAL LV FUNCTION, NO RV DYSFUNCTION, NO PERICARDIAL EFFUSION] [Emergent Cardiac for Indication: Views Used: PLAX, PSSA, A4, SX, IVC Pericardial Effusion/Tamponade Findings: NONE RV Dilation (> LV diam in 4ch apical): NONE Global LV Fxn: NORMAL IVC Dilation and Resp Variation: NORMAL Performed by: MD Shahrzad Images were stored CPT:41351] __ EMERGENCY ULTRASOUND INTERPRETATION-Limited Point of Care Venous (DVT) [This study was ordered, performed, and interpreted by myself. 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 Mild subjective recurrence of supraclavicular swelling not objectively appreciated. No neurovascular compromise on examination of the upper extremities and neck. Point of care ultrasound of the neck does not reveal clot in the IJ bilaterally. Echo is reassuring see those notes. Chest pain of unclear etiology considered musculoskeletal or pericarditis though no clear the finding characteristics ECG findings or pericardial effusion on echo. Preliminary Favored Differential Diagnosis: Pericarditis, ACS, recurrent SVC syndrome, PE less likely among additional considered etiologies Testing Interpreted Independently: ECG: Sinus rhythm rate 94 QTC 465 no ischemic changes. Left axis no significant changes from previous Radiology or Lab testing Results Reviewed: Not Applicable Consults: Case was discussed with Dr. Garrido vascular surgery at [facility] who is colleague was involved in the previous care of the SVC syndrome of this patient he and I discussed the case and he reviewed the imaging he did not feel that there was signs of a thrombus and I explained the clinical presentation and examination that was not suggestive of SVC syndrome. He agreed this patient could go home and did not need any urgent follow up with vascular surgery Independent Historians/External Chart Reviews: Reviewed available [facility] records including vascular surgery notes were personally reviewed by myself. Social Determinants of Health Impacting MDM/Planning: Not Applicable Lab Data 10/11/24 17:10 10/11/24 17:10 Labs: Lab Results 10/11/24 10/11/24 Range/Units 17:10 21:31 WBC 9.9 (4.8-10.8) X10*3/uL RBC 5.08 (4.60-5.80) X10*6/uL Hgb 16.1 (14.0-18.0) g/dl Hct 45.4 (42.0-52.0) % MCV 89.4 (80.0-98.0) fL MCH 31.7 (27.0-33.0) pg MCHC 35.5 (31.0-36.0) g/dl RDW 12.3 (11.0-16.0) % Plt Count 217 (160-400) X10*3/uL MPV 10.2 (9.4-12.4) fL Immature Gran % (Auto) 0.4 (0.0-0.4) % Neut % (Auto) 66.7 (45-73) % Lymph % (Auto) 25.3 (20-40) % Wheeler % (Auto) 6.0 (2-11) % Eos % (Auto) 1.2 (0-4) % Baso % (Auto) 0.4 (0-2) % Lymph # (Auto) 2.5 (1.2-4.9) X10*3/uL Wheeler # (Auto) 0.6 (0.1-1.2) X10*3/uL Eos # (Auto) 0.1 (0.0-0.4) X10*3/uL Baso # (Auto) 0.0 (0.0-0.2) X10*3/uL Abs Immat Gran (auto) 0.04 H (0.00-0.03) X10*3/uL Absolute Neuts (auto) 6.6 (2.0-8.3) x10*3/uL Absolute Nucleated RBC 0.000 (0.0-0.012) X10*3/uL Nucleated RBC % (auto) 0.0 (0.0-0.2) /100WBC PT 12.4 (10.9-12.4) SEC INR 1.1 (0.9-1.1) Sodium 142 (135-145) mmol/L Potassium 4.0 (3.3-5.1) mmol/L Chloride 108 (96-108) mmol/L Carbon Dioxide 28 (22-29) mmol/L Anion Gap 10 L (12-20) BUN 12 (9-16) mg/dL Creatinine 0.81 (0.5-1.4) mg/dL Estim Creat Clear Calc 118.3 Estimated GFR > 60 Random Glucose 112 (60-115) mg/dL Calcium 9.1 (8.4-10.2) mg/dL Total Bilirubin 0.7 (0.0-1.0) mg/dL AST 19 (5-37) U/L ALT 15 (0-40) U/L Alkaline Phosphatase 96 (39-117) U/L Troponin I High Sens 6.9 8.6 (<3.5-35.0) ng/L Total Protein 6.9 (6.5-8.0) g/dL Albumin 4.2 (3.5-5.0) g/dL Ethyl Alcohol 10 mg/dL Influenza Type A (PCR) NEGATIVE (Negative) Influenza Type B (PCR) NEGATIVE (Negative) RSV RNA Qual (PCR) NEGATIVE (Negative) SARS-CoV-2 RNA (RT-PCR) NEGATIVE (Negative) Discharge Plan Discharge Clinical Impression: Chest pain Patient Disposition: Home, Self-Care Instructions: Chest Pain (ED) Additional Instructions: DISCHARGE DIAGNOSES: Chest pain of unclear cause clot in the SVC has been excluded other serious causes such as heart attack pneumonia collapsed lung I have also been excluded HISTORY OF PRESENTATION: ?Chest pain EMERGENCY DEPARTMENT COURSE,TESTS, TREATMENTS: While in the ED today you had a CT that evaluated for SVC clot. This was excluded. Heart attack enzyme was done twice this was negative and reassuring. Your EKG was also stable and reassuring DISCHARGE MEDICATIONS: ?[We have made no changes to your regular medication regimen] FOLLOW-UP: ?Call your primary or general physician soon as possible to discuss your symptoms, your ED visit and to discuss follow up plans Your market development manager and/or primary doctor for follow up INSTRUCTIONS ?& RETURN PRECAUTIONS: If any symptoms change first call your primary physician, if it is after-hours your primary doctors office should have a provider environmental services manager you can speak with. If the symptoms are severe or very concerning to you then call 911 or return to the ED. Russell Markham MD Emergency Physician [facility] Prescriptions: No Action albuterol sulfate [Ventolin HFA] 90 mcg/actuation HFA aerosol inhaler 2 puff inhalation Q4-6H PRN (Reason: Wheezing) Qty: 8.5 0RF Eliquis 5 mg tablet 5 mg PO BID Qty: 180 3RF atorvastatin 80 mg tablet 80 mg PO DAILY Qty: 90 3RF pregabalin 50 mg capsule 50 mg PO BID Qty: 60 0RF lorazepam 1 mg tablet 1 mg PO BEDTIME PRN (Reason: anxiety) Qty: 30 0RF duloxetine 30 mg Capsule,Delayed Release(Dr/Ec) 30 mg PO BEDTIME Qty: 30 0RF sennosides [Senokot] 8.6 mg tablet 8.6 mg PO BID PRN (Reason: constipation) Qty: 60 0RF carvedilol [Coreg] 3.125 mg tablet 3.125 mg PO BID 30 Days Qty: 60 5RF Rx Instructions: must administer with a meal/food aspirin [Adult Aspirin Regimen] 81 mg tablet,delayed release (DR/EC) 81 mg PO DAILY nitroglycerin 0.4 mg tablet, sublingual 0.4 mg sublingual Q5M PRN (Reason: chest pain) Qty: 20 0RF Rx Instructions: do not exceed 3 doses per episode finasteride [Proscar] 5 mg tablet 5 mg PO DAILY Qty: 90 3RF lisinopril 2.5 mg tablet 2.5 mg PO DAILY Qty: 90 1RF Interventions: ED Discharge Assessment Last Done: 10/11/24 23:34 Discharge Date/Time: 10/11/24 23:35 Print Language: Anguillan
[2024-10-11 16:52] VITALS: BP 114/72; PULSE 95; RESP 20; TEMP 36.3; O2SAT 98; BMI 26.3
[2024-10-11 17:17] LABS: MANUAL DIFF FLAG NO
[2024-10-11 17:19] LABS: Hematocrit 45.4 % (42.0-52.0); Hemoglobin 16.1 g/dl (14.0-18.0); Imm Gran Abs Auto 0.04 X10*3/uL (0.00-0.03); Imm Gran Pct Auto 0.4 % (0.0-0.4); Lymphocytes Absolute Auto 2.5 X10*3/uL (1.2-4.9); Mean Corpuscular HGB Conc 35.5 g/dl (31.0-36.0); Mean Corpuscular Hemoglobin 31.7 pg (27.0-33.0); Mean Corpuscular Volume 89.4 fL (80.0-98.0); NRBC Abs Auto 0.000 X10*3/uL (0.0-0.012); NRBC Pct Auto 0.0 /100WBC (0.0-0.2); Platelet Count 217 X10*3/uL (160-400); Red Blood Count 5.08 X10*6/uL (4.60-5.80); White Blood Count 9.9 X10*3/uL (4.8-10.8)
[2024-10-11 17:29] LABS: INTERNATIONAL NORM RATIO 1.1 (0.9-1.1); Prothrombin Time 12.4 SEC (10.9-12.4)
[2024-10-11 17:34] LABS: Alanine Aminotransferase 15 U/L (0-40); Albumin Level 4.2 g/dL (3.5-5.0); Alkaline Phosphatase 96 U/L (39-117); Anion Gap 10 (12-20); Aspartate Amino Transferase 19 U/L (5-37); Blood Urea Nitrogen 12 mg/dL (9-16); Calcium 9.1 mg/dL (8.4-10.2); Carbon Dioxide 28 mmol/L (22-29); Chloride 108 mmol/L (96-108); Creatinine Clr Calc Pharmacy 118.3; Estimated Glomerular Filt Rate > 60; Potassium 4.0 mmol/L (3.3-5.1); Sodium 142 mmol/L (135-145); Total Protein 6.9 g/dL (6.5-8.0)
[2024-10-11 17:47] LABS: Troponin-I High Sensitivity 6.9 ng/L (<3.5-35.0)
[2024-10-11 18:15] LABS: Resp Syncy Virus RNA Qual PCR NEGATIVE (Negative); SARS COV2 PCR INHOUSE NEGATIVE (Negative)
[2024-10-11 18:48] VITALS: BP 112/76; PULSE 79; RESP 15; TEMP 36.8; O2SAT 96
[2024-10-11] MEDS: iohexoL 350 MG/ML 100 ML INFUS..BTL IV (20:42)
[2024-10-11 20:45] VITALS: BP 126/73; PULSE 82; RESP 17; TEMP 36.3; O2SAT 98
[2024-10-11 21:53] LABS: Troponin-I High Sensitivity 8.6 ng/L (<3.5-35.0)
[2024-10-11 23:16] VITALS: BP 115/79; PULSE 83; RESP 14; TEMP 36.1; O2SAT 95
[2024-10-11 23:34] VITALS: BP 115/79; PULSE 83; RESP 14; TEMP 36.1; O2SAT 95
--- NOTE | 2024-10-11 23:34 | PC.NURSE ---
provider into discuss plan of care, reviewed discharge instructions with pt. pt verbalized understanding.
== END 2024-10-11 23:35 | disposition home or self-care (01) ==
PROVIDERS: Registered Nurse Emergency; Emergency Provider Emergency Medicine; PCP Internal Medicine
DX: R07.89 Other chest pain (principal); R20.0 Anesthesia of skin; R60.0 Localized edema; F17.210 Nicotine dependence, cigarettes, uncomplicated; Z79.899 Other long term (current) drug therapy; Z51.81 Encounter for therapeutic drug level monitoring; Z03.818 Encounter for observation for suspected exposure to other biological agents ruled out
CPT/HCPCS: 36415; 71260; 80053; 80307; 84484; 85025; 85610; 87637; 93005; 93308; 93971; 96374; 96375; 99212; 99284; 99285; J1171; J2270; Q9967

== ENCOUNTER → 2024-10-11 16:39 | Outpatient (BNV) | payer MEDICARE, MEDICAID, SELFPAY | PROVIDERS: Emergency Provider Emergency Medicine; PCP Internal Medicine; Visit Provider Internal Medicine Cardiovascular Disease | DX: I25.2 Old myocardial infarction (principal) | CPT/HCPCS: 93010 ==

== ENCOUNTER → 2024-10-11 20:05 | Outpatient (BNV) | payer MEDICARE, MEDICAID, SELFPAY | PROVIDERS: Emergency Provider Emergency Medicine; PCP Internal Medicine; Visit Provider Radiology Diagnostic Radiology | DX: R07.9 Chest pain, unspecified (principal) | CPT/HCPCS: 71260 ==

== ENCOUNTER 2024-10-13 10:33 | Outpatient (AMB) | payer MEDICARE, MEDICAID, SELFPAY ==
--- NOTE | 2024-10-13 10:35 | A.OFFVIS_ITS ---
Vital Signs 10/13/24 10:38 Height 6 ft 2 in Weight 207 lb 4 oz BMI 26.6 BP 124/80 Blood Pressure Location Rt brachial Position Sitting Pulse 82 Pulse Source Pulse Oximeter Pulse Oximetry (%) 97 Oxygen Delivery Method Room Air Intake Visit Reasons: INP-Paresthesia of skin/Cerebral infarction Intake Note: Paresthesia of skin and Cerebral infarction Clinical Research Scientist Required: No Accompanied by: Self / Same As Patient Allergies bupropion (From Wellbutrin) Allergy (Intermediate, Verified 10/13/24 10:39) Hives, Rage varenicline (From Chantix) Allergy (Intermediate, Verified 10/13/24 10:39) Agitation, Aggression codeine (Codeine) Allergy (Mild, Verified 10/13/24 10:39) HIVES/ITCHING methadone (Methadone) Allergy (Mild, Verified 10/13/24 10:39) HIVES/ITCHING Black Pepper-Turmeric Allergy (Unknown, Uncoded 10/11/24 15:57) Unknown HPI Comments Details: 54y/o male comes for neurologicla evaluation. The referral says acute CVA and numbness in left hand. But patient denies nay stroke like symptoms now. He has h/o 2 TIAs 1 year ago when he had transient facial weakness and speech difficulties. He has a very complicated spinal history. Notes from Neuro spine was reviewed neck fracture with C1-2 wiring, anterior cervical fusion from C4-C7, amongst multiple other lumbar surgeries that he has had done as well , all performed by who has since retired. The patient comes in with a three-month history of severe neck pain radiating down to the top of his shoulder associated with tingling going from his mid forearm into his 4th and 5th digits. The pain has been very intense. He is familiar with it because of all of his previous neck surgeries and ultimately underwent an MRI showing spinal cord compression at C3-4 with foraminal stenosis adjacent to his previous fusions. To this point he has had no dedicated conservative treatment but he is been through rigorous conservative treatment in the past including physical therapy, chiropractic as well as cortisone injections. None of these things ever really work and help him with his pain. He is currently taking morphine daily to help with the discomfort. His pain is aggravated with activity. He has not report any overt myelopathic symptoms. His main concern is his chronic pain in is neck and back PMH: He is a very complicated medical history as well, recently diagnosed with SVC syndrome with a blood clot in his vena cava, he underwent an angioplasty and has been on Eliquis. He has a history of cardiomyopathy with cardiac arrest, status post ICD placement, coronary artery disease, stroke, BPH, sleep apnea, vertigo, nonsustained ventricular tachycardia, anxiety, restrictive lung disease, COPD, BPH, failed back syndrome, ulnar neuropathy and carpal tunnel syndrome. [facility] Medical History (Updated 10/19/24 @ 13:48 by Arely England MD) Cerebrovascular accident Cervical radiculopathy PATRICIA (obstructive sleep apnea) Cardiomyopathy Vertigo Stroke Cerebral infarction Hyperlipidemia History of TIA (transient ischemic attack) (~2013) History of cardiac arrest (~2019) Cardiac defibrillator in place Nonischemic cardiomyopathy Atherosclerotic cardiovascular disease Hypertension Hypercholesterolemia Restrictive lung disease COPD (chronic obstructive pulmonary disease) Cigarette nicotine dependence Nicotine dependence, cigarettes, uncomplicated Uncomplicated opioid dependence Chronic pain syndrome Rotator cuff arthropathy of both shoulders MRSA infection Surgical History History of implantable cardiac defibrillator (ICD) History of cardiac cath S/P insertion of spinal cord stimulator History of back surgery History of fusion of cervical spine History of repair of left rotator cuff History of repair of right rotator cuff History of cholecystectomy History of colonoscopy Family History Mother Multiple sclerosis Father Diabetes Amputat leg, bilat-complicated Sister Lupus Social History Household Members: Family Housing: House Do you presently have visiting nurse or other home services: No Alcohol intake: current Alcohol intake frequency: does not drink Alcohol type: beer Patient Tobacco Use Status: Current everyday Tobacco user Tobacco use type: Cigarette, Cigar and Smokeless Tobacco Cigarette Packs Per Day: 0.5 Cigarettes Per Day: 10 Years Smoked: (onset 9yo, 1/2-3ppd x 40yrs, now <1/4ppd - 30+PYH) e-Cigarette/Vaping Use: Currently Using Second Hand Smoke Exposure: Yes Advance Directives Date on File: 07/27/23 service: No Cognitive needs: No Hearing needs: No Vision needs: Yes (Glasses) Physical Exam Vital Signs: Last Vital Signs Pulse 82 10/13/24 10:38 BP 124/80 10/13/24 10:38 Pulse Ox 97 10/13/24 10:38 Oxygen Delivery Method Room Air 10/13/24 10:38 BMI result Body Mass Index 26.6 Const General: cooperative and healthy appearing Nutritional Appearance: average body habitus Orientation/consciousness: patient oriented x3 Eyes Pupils: Equal, round and reactive pupils present Neuro General: patient oriented x3, tone normal, moves all extremities and no focal motor deficits Cranial nerves: Yes Facial sensation intact/muscles of mastication intact, Yes Equal, round and reactive pupils present, Yes Bilaterally intact EOM present, Yes Nystagmus not present, Yes Normal facial strength present, Yes Midline tongue present, Yes Symmetric palate elevation present and Yes Ability to bilaterally elevate shoulders present Cognition (Neuro): normal cognition Gait exam (Neuro): Antalgic gait present Motor exam (neuro): 5/5 motor strength present throughout and Normal motor muscle tone present throughout Deep tendon reflexes (DTR's): Right triceps reflex intensity grade: 2+, Left triceps reflex intensity grade: 2+, Rt Biceps (C5, C6): 2+, Left biceps reflex intensity grade: 2+, Right brachioradialis reflex intensity grade: 2+, Left brachioradialis reflex intensity grade: 2+, Right patellar reflex intensity grade: 2+, Left patellar reflex intensity grade: 2+ and Right ankle reflex intensity grade: 2+ Coordination: [id number] test normal Results Reviewed Results Reviewed: EMG- left cervical radiculopathy Left median and ulnar motor and sensory studies were performed. Left radial sensory study was performed. Paraspinal muscles were tested with a needle. IMPRESSION: 1. Mild left median neuropathy across carpal tunnel. 2. 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 3. Chronic cervicalradiculopathy MRI C spine July 2024 lPostsurgical changes C4 C7 resulting in incomplete ankylosis. Grade 1 retrolisthesis resulting in central spinal canal stenosis and cord deformity without cord edema and or myelopathy. Bilateral neuroforamina stenosis on a degenerative basis C3-4. Assessment & Plan Assessment & Plan (1) Failed back syndrome, lumbar: Code(s): M96.1 - Postlaminectomy syndrome, not elsewhere classified Category: Medical (2) Postlaminectomy syndrome of lumbar region: Code(s): M96.1 - Postlaminectomy syndrome, not elsewhere classified Category: Medical (3) Postlaminectomy syndrome, cervical: Code(s): M96.1 - Postlaminectomy syndrome, not elsewhere classified Category: Medical (4) Cerebrovascular accident: Comment: TIA Code(s): I63.9 - Cerebral infarction, unspecified Category: Medical Plan Continue aspirin 81mg qd F/u cardiology Increase duloxetine 60mg qhs Trial baclofen 10mg qhs Suggested hydrotherapy, dry needling F/u Spine Surgeon Consider [facility] Suggested wrist and elbow sleeves while working to help with carpal tunnel and ulnar nerve compression Medications: New baclofen 10 mg PO BEDTIME 30 tabs 6RF magnesium oxide 400 mg PO DAILY 30 caps 6RF Changed From duloxetine 30 mg PO BEDTIME 30 caps 0RF To duloxetine 60 mg PO BEDTIME 30 caps 6RF Coding Level of Care Code New Pt Level 4 (32052) Diagnoses Failed back syndrome, lumbar M96.1 Postlaminectomy syndrome, cervical M96.1 Cerebrovascular accident I63.9
[2024-10-13 10:38] VITALS: BP 124/80; PULSE 82; O2SAT 97; BMI 26.6
--- OUTSIDE RECORDS SUMMARY | 2024-10-13 11:22 | XMS_ITS | Clinical Summary ---
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
== END 2024-10-13 11:32 | disposition home or self-care (01) ==
LOC: HO.HSMS 10:34
PROVIDERS: PCP Internal Medicine; Visit Provider Psychiatry & Neurology Neurology
DX: M96.1 Postlaminectomy syndrome, not elsewhere classified (principal); I63.9 Cerebral infarction, unspecified
CPT/HCPCS: 99204

== ENCOUNTER → 2024-10-13 10:33 | Outpatient (BNVA) | payer MEDICARE, MEDICAID, SELFPAY | PROVIDERS: PCP Internal Medicine; Visit Provider Psychiatry & Neurology Neurology | DX: M96.1 Postlaminectomy syndrome, not elsewhere classified (principal); Z86.73 Personal history of transient ischemic attack (TIA), and cerebral infarction without residual deficits; Z79.82 Long term (current) use of aspirin; Z79.2 Long term (current) use of antibiotics; Z79.01 Long term (current) use of anticoagulants | CPT/HCPCS: 99202 ==

== ENCOUNTER → 2024-10-18 23:59 | Outpatient (BNV) | payer MEDICARE, MEDICAID, SELFPAY ==
--- NOTE | 2024-10-21 12:34 | A.OFFVIS_ITS ---
Intake Visit Reasons: Remote ICD Check- Interwise [employer] Allergies bupropion (From Wellbutrin) Allergy (Intermediate, Verified 10/13/24 10:39) Hives, Rage varenicline (From Chantix) Allergy (Intermediate, Verified 10/13/24 10:39) Agitation, Aggression codeine (Codeine) Allergy (Mild, Verified 10/13/24 10:39) HIVES/ITCHING methadone (Methadone) Allergy (Mild, Verified 10/13/24 10:39) HIVES/ITCHING Black Pepper-Turmeric Allergy (Unknown, Uncoded 10/11/24 15:57) Unknown FOR[facility]LY [facility], [facility] Medical History (Updated 10/19/24 @ 13:48 by Arely England MD) Cerebrovascular accident Cervical radiculopathy PATRICIA (obstructive sleep apnea) Cardiomyopathy Vertigo Stroke Cerebral infarction Hyperlipidemia History of TIA (transient ischemic attack) (~2013) History of cardiac arrest (~2019) Cardiac defibrillator in place Nonischemic cardiomyopathy Atherosclerotic cardiovascular disease Hypertension Hypercholesterolemia Restrictive lung disease COPD (chronic obstructive pulmonary disease) Cigarette nicotine dependence Nicotine dependence, cigarettes, uncomplicated Uncomplicated opioid dependence Chronic pain syndrome Rotator cuff arthropathy of both shoulders MRSA infection Surgical History History of implantable cardiac defibrillator (ICD) History of cardiac cath S/P insertion of spinal cord stimulator History of back surgery History of fusion of cervical spine History of repair of left rotator cuff History of repair of right rotator cuff History of cholecystectomy History of colonoscopy Family History Mother Multiple sclerosis Father Diabetes Amputat leg, bilat-complicated Sister Lupus Social History Household Members: Family Housing: House Do you presently have visiting nurse or other home services: No Alcohol intake: current Alcohol intake frequency: does not drink Alcohol type: beer Patient Tobacco Use Status: Current everyday Tobacco user Tobacco use type: Cigarette, Cigar and Smokeless Tobacco Cigarette Packs Per Day: 0.5 Cigarettes Per Day: 10 Years Smoked: (onset 9yo, 1/2-3ppd x 42yrs, now <1/4ppd - 30+PYH) e-Cigarette/Vaping Use: Currently Using Second Hand Smoke Exposure: Yes Advance Directives Date on File: 07/27/23 service: No Cognitive needs: No Hearing needs: No Vision needs: Yes (Glasses) Office Procedures Cardiac Device Check Cardiac Device Check Details: Date of service 10/18/2024; Battery life 11 years; normal lead parameters; no treated VT/VF; normal ICD function. Need to review EGM from ?VF on 09/22, if it is artifactual. [id number] Cardiac Interrogation, implant defibrillator w/interim Procedure code (CPT) selection complete Assessment & Plan Assessment & Plan (1) Cardiac defibrillator in place: Comment: (s/p cardiac arrest 2019) Code(s): Z95.810 - Presence of automatic (implantable) cardiac defibrillator Category: Medical (2) Cardiomyopathy: Comment: 06/2024 ef 15-20 % Code(s): I42.9 - Cardiomyopathy, unspecified Category: Medical (3) History of cardiac arrest: Onset Date: ~2019 Comment: (cardiac arrest - VF/VT 2019 - s/p ICD) Code(s): Z86.74 - Personal history of sudden cardiac arrest Category: Medical Plan x Coding Level of Care Code Procedure Only Diagnoses Cardiac defibrillator in place Z95.810 Cardiomyopathy I42.9 History of cardiac arrest Z86.74 CPT Codes Cardiac Device Check - Cardiac Device 13: [id number] Cardiac Interrogation, implant defibrillator w/interim ([id number])
== END ==
PROVIDERS: PCP Internal Medicine; Visit Provider Internal Medicine
DX: I42.9 Cardiomyopathy, unspecified (principal); Z95.810 Presence of automatic (implantable) cardiac defibrillator; Z86.74 Personal history of sudden cardiac arrest
CPT/HCPCS: 93295

== ENCOUNTER 2025-01-22 19:38 | Emergency (ER) | payer MEDICARE, MEDICAID, SELFPAY ==
--- NOTE | 2025-01-22 | ECG_ITS ---
Test Reason : CHEST PAIN Blood Pressure : */* mmHG Vent. Rate : 104 BPM Atrial Rate : 104 BPM P-R Int : 134 ms QRS Dur : 96 ms QT Int : 384 ms P-R-T Axes : 64 -59 73 degrees QTcB Int : 504 ms Sinus tachycardia Left axis deviation Incomplete right bundle branch block Septal infarct (cited on or before 25-Jul-2023) Abnormal ECG When compared with ECG of 11-Oct-2024 16:44, Non-specific change in ST segment in Lateral leads Referred By: Generic ED Physician Electronically Signed By: ABIODUN MACIAS
--- NOTE | ~2025-01-22 | XR_ITS ---
CLINICAL HISTORY: pain 2 view chest x-ray Comparison: CR - XR CHEST 2V - 06/13/24 17:48 EDT Findings: No consolidation or effusion. Left anterior single lead AICD; right atrium. Prior cervical anterior cervical discectomy and fusion. Prior right rotator cuff reconstruction. IMPRESSION: 1. Left anterior single lead AICD in right atrium. 2. Prior cervical anterior cervical discectomy and fusion. 3. Prior right rotator cuff reconstruction. 4. No acute cardiopulmonary findings. This document has been electronically signed by: Josue Huizar MD on 01/22/2025 20:39:16
[2025-01-22 19:42] VITALS: BP 98/70; PULSE 110; RESP 26; TEMP 36.7; O2SAT 100; BMI 27.8
--- NOTE | 2025-01-22 19:49 | ED.GENADULT ---
HPI - General Adult General Chief complaint: Chest Pain Stated complaint: cp Sob Time Seen by Provider: 01/22/25 21:39 Source: patient Limitations: no limitations History of Present Illness ED Provider: Citlaly Otto PA-C HPI narrative: 54-year-old male with a history of cardiomyopathy, systolic heart failure with EF of 35-40% on echo 05/2024, cardiac arrest in 2019, s/p ICD, TIA, cerebral infarction, HTN, restrictive lung disease, COPD, smoking, chronic pain syndrome with uncomplicated opioid dependence presents with chest pain. Pain across anterior chest described as tightness, with the associated generalized malaise, myalgias, and dyspnea with the exertion. Denies productive cough, fever chills. Related Data Home Medications ?Medication ?Instructions ?Recorded ?Confirmed aspirin 81 mg tablet,delayed 81 mg PO DAILY 06/25/24 08/25/24 release (Adult Aspirin Regimen) Previous Rx's ?Medication ?Instructions ?Recorded albuterol sulfate 90 mcg/actuation 2 puff inhalation Q4-6H PRN 10/11/23 aerosol inhaler (Ventolin HFA) Wheezing #8.5 grams apixaban 5 mg tablet (Eliquis) 5 mg PO BID #180 tabs 03/22/24 finasteride 5 mg tablet (Proscar) 5 mg PO DAILY #90 tabs 03/26/24 atorvastatin 80 mg tablet 80 mg PO DAILY #90 tabs 03/29/24 nitroglycerin 0.4 mg sublingual 0.4 mg sublingual Q5M PRN chest 03/29/24 tablet pain #20 tabs sennosides 8.6 mg tablet (Senokot) 8.6 mg PO BID PRN constipation #60 06/28/24 tabs lorazepam 1 mg tablet 1 mg PO BEDTIME PRN anxiety #30 09/20/24 tabs baclofen 10 mg tablet 10 mg PO BEDTIME #30 tabs 10/13/24 duloxetine 60 mg capsule,delayed 60 mg PO BEDTIME #30 caps 10/13/24 release magnesium oxide 400 mg PO DAILY #30 caps 10/13/24 ketorolac 10 mg tablet 10 mg PO Q6H PRN pain #20 tabs 01/22/25 carvedilol 6.25 mg tablet 6.25 mg PO BID 30 days #60 tabs 01/24/25 Allergies Allergy/AdvReac Type Severity Reaction Status Date / Time bupropion (From Wellbutrin) Allergy Intermediate Hives, Rage Verified 01/22/25 19:49 varenicline (From Chantix) Allergy Intermediate Agitation, Verified 01/22/25 19:49 Aggression codeine (Codeine) Allergy Mild HIVES/ITCHI Verified 01/22/25 19:49 NG methadone (Methadone) Allergy Mild HIVES/ITCHI Verified 01/22/25 19:49 NG Black Pepper-Turmeric Allergy Unknown Unknown Uncoded 01/22/25 19:49 Review of Systems Review of Systems: Yes all other systems are reviewed and are negative Constitutional: Constitutional: Reports body ache(s), Denies chills, Reports fatigue, Denies fever(s) and Reports malaise Cardiovascular: Cardiovascular: Reports chest pain and Reports dyspnea on exertion Respiratory: Respiratory: Denies cough, Reports dyspnea on exertion and Denies wheezing Musculoskeletal: Musculoskeletal: Reports myalgias Endocrine: Endocrine: Reports fatigue Allergic/Immunologic: Allergic/Immunologic: Denies wheezing PMFSH Past Medical History Attestation statement: The following information was validated with the patient. Medical History (Updated 01/23/25 @ 00:00 by Background Daemon) Cerebrovascular accident Cervical radiculopathy PATRICIA (obstructive sleep apnea) Cardiomyopathy Vertigo Stroke Cerebral infarction Hyperlipidemia History of TIA (transient ischemic attack) (~2013) History of cardiac arrest (~2019) Cardiac defibrillator in place Nonischemic cardiomyopathy Atherosclerotic cardiovascular disease Hypertension Hypercholesterolemia Restrictive lung disease COPD (chronic obstructive pulmonary disease) Cigarette nicotine dependence Nicotine dependence, cigarettes, uncomplicated Uncomplicated opioid dependence Chronic pain syndrome Rotator cuff arthropathy of both shoulders MRSA infection Surgical History History of implantable cardiac defibrillator (ICD) History of cardiac cath S/P insertion of spinal cord stimulator History of back surgery History of fusion of cervical spine History of repair of left rotator cuff History of repair of right rotator cuff History of cholecystectomy History of colonoscopy Family History Family History Mother Multiple sclerosis Father Diabetes Amputat leg, bilat-complicated Sister Lupus Social History Social History Household Members: Family Housing: House Do you presently have visiting nurse or other home services: No Alcohol intake: former Year quit: 2016 Patient Tobacco Use Status: Current everyday Tobacco user Tobacco use type: Cigarette, Cigar and Smokeless Tobacco Cigarette Packs Per Day: 0.5 Cigarettes Per Day: 10 Years Smoked: (onset 9yo, 1/2-3ppd x 42yrs, now <1/4ppd - 30+PYH) Smoked in Last 30 Days: Yes e-Cigarette/Vaping Use: Currently Using Second Hand Smoke Exposure: Yes Use of substances other than those prescribed or required for medical reasons: No Advance Directives: Yes Advance Directives on File: Yes Advance Directives Date on File: 07/27/23 service: No Cognitive needs: No Hearing needs: No Vision needs: Yes (Glasses) Physical Exam ED Vital Signs: Vital Signs - 24 hr 01/22/25 19:42 Temperature 98.1 F Pulse Rate 110 H Respiratory Rate 26 H Blood Pressure 98/70 Pulse Oximetry 100 Oxygen Delivery Method Room Air BMI result Body Mass Index 27.8 Const Other: Alert Orientation/consciousness: patient oriented x3 Chest Other: Tenderness to palpation over anterior chest wall, no deformity Resp Other: Lungs clear to auscultation no wheezing no cough Effort & Inspection: normal respiratory effort Cardio Other: Normal peripheral perfusion Skin Other: Warm dry no rash Neuro General: patient oriented x3, gait normal, no focal motor deficits and CN's II-XI intact bilaterally Psych Other: Cooperative Course Course Course Narrative: RME, this is a rapid medical exam performed by Brian Walden please refer to primary provider for complete H&P- 54-year-old male past medical history significant for previous CVA, coronary artery disease, nonsustained V-tach, cardiac arrest in his post pacemaker and defibrillator, COPD, hypertension, BPH, hypertension presents for evaluation of chest pain, shortness of breath with exertion and body aches. Plan for labs, EKG, chest x-ray, urinalysis and viral swabs. Medications Administered Discontinued Medications Generic Name Dose Route Start Last Admin Trade Name Freq PRN Reason Stop Dose Admin Ketorolac Tromethamine 15 mg 01/22/25 22:11 01/22/25 22:48 Ketorolac Tromethamine 15 Mg/Ml Vial IVPUSH 01/22/25 22:12 15 mg ONCE ONE Administration Medical Decision Making Medical Decision Making [facility] Narrative: 54-year-old male with a history of cardiomyopathy, systolic heart failure with EF of 35-40% on echo 05/2024, cardiac arrest in 2019, s/p ICD, TIA, cerebral infarction, HTN, restrictive lung disease, COPD, smoking, chronic pain syndrome with uncomplicated opioid dependence presents with chest pain. Pain across anterior chest described as tightness, with the associated generalized malaise, myalgias, and dyspnea with the exertion. Denies productive cough, fever chills. Problem: Significant cardiac history, COPD, active tobacco use History: Per patient I have considered the following differential diagnoses: ACS, heart failure exacerbation, exacerbation of chronic respiratory illness, bronchitis, pneumonia , viral syndrome, costochondritis/chest wall pain Plan: Patient is here with viral related symptoms in conjunction with generalized anterior chest pain, that has reproducible with palpation. This is likely costochondritis, giving Toradol. Screening labs including cardiac enzymes an EKG obtained, ACS was clearly considered given the patient's underlying cardiac history. He does not appear volume overloaded on exam, he is not hypoxic, to suggest acute heart failure exacerbation. Chest x-ray pending at this time. Overall, his pulmonary exam is benign as well, I do not hear crackles there is no wheezing. I have independently reviewed the following tests: Labs: Leukocytosis of 14, not anemic, no electrolyte abnormality, troponin 9.6, delta troponin 11, viral panel negative EKG: Sinus tachycardia, rate of 104, incomplete right bundle, no active ischemic changes when compared to prior study, QTC 504 Chest x-ray:Findings: No consolidation or effusion. Left anterior single lead AICD; right atrium. Prior cervical anterior cervical discectomy and fusion. Prior right rotator cuff reconstruction. IMPRESSION: 1. Left anterior single lead AICD in right atrium. 2. Prior cervical anterior cervical discectomy and fusion. 3. Prior right rotator cuff reconstruction. 4. No acute cardiopulmonary findings. Differential Diagnosis Differential Diagnoses: The differential diagnosis associated with the presentation includes See [facility] Admission/Observation Consideration of admission/observation: Escalation of care including admission/observation considered Not applicable Lab Data [facility] Lab Attestation statement: I reviewed the patient's lab results. 01/22/25 19:56 01/22/25 19:56 Labs: Lab Results 01/22/25 01/22/25 Range/Units 19:56 22:23 WBC 14.0 H (4.8-10.8) X10*3/uL RBC 5.38 (4.60-5.80) X10*6/uL Hgb 16.8 (14.0-18.0) g/dl Hct 49.1 (42.0-52.0) % MCV 91.3 (80.0-98.0) fL MCH 31.2 (27.0-33.0) pg MCHC 34.2 (31.0-36.0) g/dl RDW 12.6 (11.0-16.0) % Plt Count 210 (160-400) X10*3/uL MPV 9.8 (9.4-12.4) fL Immature Gran % (Auto) 0.4 (0.0-0.4) % Neut % (Auto) 66.3 (45-73) % Lymph % (Auto) 23.6 (20-40) % Drew % (Auto) 6.8 (2-11) % Eos % (Auto) 2.3 (0-4) % Baso % (Auto) 0.6 (0-2) % Lymph # (Auto) 3.3 (1.2-4.9) X10*3/uL Drew # (Auto) 1.0 (0.1-1.2) X10*3/uL Eos # (Auto) 0.3 (0.0-0.4) X10*3/uL Baso # (Auto) 0.1 (0.0-0.2) X10*3/uL Abs Immat Gran (auto) 0.06 H (0.00-0.03) X10*3/uL Absolute Neuts (auto) 9.3 H (2.0-8.3) x10*3/uL Absolute Nucleated RBC 0.000 (0.0-0.012) X10*3/uL Nucleated RBC % (auto) 0.0 (0.0-0.2) /100WBC D-Dimer High Sensitivty < 150 NG/ML Sodium 140 (135-145) mmol/L Potassium 4.1 (3.3-5.1) mmol/L Chloride 108 (96-108) mmol/L Carbon Dioxide 23 (22-29) mmol/L Anion Gap 13 (12-20) BUN 17 H (9-16) mg/dL Creatinine 0.81 (0.5-1.4) mg/dL Estim Creat Clear Calc 118.3 Estimated GFR > 60 Random Glucose 119 H (60-115) mg/dL Calcium 8.9 (8.4-10.2) mg/dL Total Bilirubin 0.7 (0.0-1.0) mg/dL AST 22 (5-37) U/L ALT 23 (0-40) U/L Alkaline Phosphatase 88 (39-117) U/L Troponin I High Sens 9.6 11.0 (<3.5-35.0) ng/L NT-Pro-B Natriuret Pep 201.0 (<300) pg/mL Total Protein 6.8 (6.5-8.0) g/dL Albumin 4.0 (3.5-5.0) g/dL Lipase 29 (8-78) U/L Influenza Type A (PCR) NEGATIVE (Negative) Influenza Type B (PCR) NEGATIVE (Negative) RSV RNA Qual (PCR) NEGATIVE (Negative) SARS-CoV-2 RNA (RT-PCR) NEGATIVE (Negative) Independent Interpretation I performed an independent interpretation of an: EKG Radiology Impression Discussion of test interpretation with radiology: I have reviewed the radiologist's reading. Discharge Plan Discharge Clinical Impression: Chest wall pain, Acute viral syndrome Patient Disposition: Home, Self-Care Instructions: Viral Syndrome (ED), Chest Wall Pain (ED) Additional Instructions: All of your screening labs including 2 cardiac enzymes were normal for you. There were no concerning changes on the EKG in the chest x-ray is clear. You have yet another virus causing your body aches and chest wall pain. Take the ketorolac as directed take it with food. Continue to follow up with your primary care as needed. Prescriptions: New ketorolac 10 mg tablet 10 mg PO Q6H PRN (Reason: pain) Qty: 20 0RF Rx Instructions: maximum total duration of 5 days from all oral, intranasal, or parenteral formulations, patient received an IV dose of Toradol here in the emergency room No Action albuterol sulfate [Ventolin HFA] 90 mcg/actuation HFA aerosol inhaler 2 puff inhalation Q4-6H PRN (Reason: Wheezing) Qty: 8.5 0RF Eliquis 5 mg tablet 5 mg PO BID Qty: 180 3RF atorvastatin 80 mg tablet 80 mg PO DAILY Qty: 90 3RF lorazepam 1 mg tablet 1 mg PO BEDTIME PRN (Reason: anxiety) Qty: 30 0RF carvedilol 6.25 mg tablet 6.25 mg PO BID 30 Days Qty: 60 5RF Rx Instructions: must administer with a meal/food Dose increased sennosides [Senokot] 8.6 mg tablet 8.6 mg PO BID PRN (Reason: constipation) Qty: 60 0RF duloxetine 60 mg capsule,delayed release(DR/EC) 60 mg PO BEDTIME Qty: 30 6RF baclofen 10 mg tablet 10 mg PO BEDTIME Qty: 30 6RF magnesium oxide 400 mg magnesium capsule 400 mg PO DAILY Qty: 30 6RF aspirin [Adult Aspirin Regimen] 81 mg tablet,delayed release (DR/EC) 81 mg PO DAILY nitroglycerin 0.4 mg tablet, sublingual 0.4 mg sublingual Q5M PRN (Reason: chest pain) Qty: 20 0RF Rx Instructions: do not exceed 3 doses per episode finasteride [Proscar] 5 mg tablet 5 mg PO DAILY Qty: 90 3RF Interventions: ED Discharge Assessment Last Done: 01/22/25 23:19 Discharge Date/Time: 01/22/25 23:20 Print Language: Macedonian
--- OUTSIDE RECORDS SUMMARY | 2025-01-22 19:57 | XMS_ITS | Clinical Summary ---
Author Organization [facility] [address] [facility] Address [address] [place] [address] Phone Care Team Providers Care [employer] Name Role Phone Sabina Colindres MD Primary Care Provider [phone] Social History Tobacco Use Types Packs/Day Years Used Date Smoking Tobacco: Never Assessed Sex and Gender Information Value Date Recorded Sex Assigned at Not on file Legal Sex Male 10:07 AM EST Gender Identity Not on file Sexual Orientation Not on file Plan of Treatment Health Maintenance Due Date Last Done Comments Colorectal Cancer Screening: Colonoscopy 1968 DTaP,Tdap,and Td Vaccines (1 - Tdap) 08/14/1987 Hepatitis B Vaccines (1 of 3 - 19+ 3-dose series) 08/14/1987 Pneumococcal Vaccine: 50+ Ye ars (1 of 1 - PCV) 2018 Zoster Vaccines (1 of 2) 2018 Depression Screening 03/03/2024 Cholesterol Screening (Lipid Panel) 07/08/2024 HIV Screening 07/08/2024 Hepatitis C Screening 07/08/2024 Medicare Annual Wellness Visit 07/08/2024 Social Influencers of Health Screening 07/08/2024 COVID-19 Vaccine (1 - 2024-2 6 season) 2024 Influenza Vaccine (#1) 2024 RSV Immunization Adult Patie nts (1 - 1-dose 75+ series) 08/14/2043 HIB Vaccines Aged Out No longer eligi [...] Insurance MEDICARE [place]ICA[place] - [place] Care Teams [employer] Relationship Specialty Start Date End Date Sabina Colindres MD [address] [place] [id number] PCP - General Internal Medicine 07/08/24
[2025-01-22 20:06] LABS: Hematocrit 49.1 % (42.0-52.0); Hemoglobin 16.8 g/dl (14.0-18.0); Imm Gran Abs Auto 0.06 X10*3/uL (0.00-0.03); Imm Gran Pct Auto 0.4 % (0.0-0.4); Lymphocytes Absolute Auto 3.3 X10*3/uL (1.2-4.9); MANUAL DIFF FLAG NO; Mean Corpuscular HGB Conc 34.2 g/dl (31.0-36.0); Mean Corpuscular Hemoglobin 31.2 pg (27.0-33.0); Mean Corpuscular Volume 91.3 fL (80.0-98.0); NRBC Abs Auto 0.000 X10*3/uL (0.0-0.012); NRBC Pct Auto 0.0 /100WBC (0.0-0.2); Platelet Count 210 X10*3/uL (160-400); Red Blood Count 5.38 X10*6/uL (4.60-5.80); White Blood Count 14.0 X10*3/uL (4.8-10.8)
[2025-01-22 20:22] LABS: Alanine Aminotransferase 23 U/L (0-40); Albumin Level 4.0 g/dL (3.5-5.0); Alkaline Phosphatase 88 U/L (39-117); Anion Gap 13 (12-20); Aspartate Amino Transferase 22 U/L (5-37); Blood Urea Nitrogen 17 mg/dL (9-16); Calcium 8.9 mg/dL (8.4-10.2); Carbon Dioxide 23 mmol/L (22-29); Chloride 108 mmol/L (96-108); Creatinine Clr Calc Pharmacy 118.3; Estimated Glomerular Filt Rate > 60; Lipase 29 U/L (8-78); Potassium 4.1 mmol/L (3.3-5.1); Sodium 140 mmol/L (135-145); Total Protein 6.8 g/dL (6.5-8.0)
[2025-01-22 20:30] LABS: Troponin-I High Sensitivity 9.6 ng/L (<3.5-35.0)
[2025-01-22 20:42] LABS: Resp Syncy Virus RNA Qual PCR NEGATIVE (Negative); SARS COV2 PCR INHOUSE NEGATIVE (Negative)
[2025-01-22 20:49] LABS: NT Pro B Type Natriuretic Pept 201.0 pg/mL (<300)
[2025-01-22 22:44] LABS: D Dimer High Sensitivity < 150 NG/ML
[2025-01-22 22:47] LABS: Troponin-I High Sensitivity 11.0 ng/L (<3.5-35.0)
[2025-01-22 23:19] VITALS: BP 125/74; PULSE 93; RESP 20; TEMP 36.9; O2SAT 96
== END 2025-01-22 23:20 | disposition home or self-care (01) ==
PROVIDERS: Physician Assistant; Physician Assistant Medical; Emergency Provider Emergency Medicine; PCP Internal Medicine
DX: R07.89 Other chest pain (principal); B34.9 Viral infection, unspecified; I11.0 Hypertensive heart disease with heart failure; I50.22 Chronic systolic (congestive) heart failure; Z72.0 Tobacco use; J44.9 Chronic obstructive pulmonary disease, unspecified; G89.4 Chronic pain syndrome; Z86.73 Personal history of transient ischemic attack (TIA), and cerebral infarction without residual deficits; Z79.899 Other long term (current) drug therapy
CPT/HCPCS: 36415; 71046; 80053; 83690; 83880; 84484; 85025; 85379; 87637; 93005; 96374; 99284; 99285; J1885

== ENCOUNTER → 2025-01-22 19:41 | Outpatient (BNV) | payer MEDICARE, MEDICAID, SELFPAY | PROVIDERS: Emergency Provider Emergency Medicine; PCP Internal Medicine; Visit Provider Internal Medicine | DX: R00.0 Tachycardia, unspecified (principal); I45.10 Unspecified right bundle-branch block; I25.2 Old myocardial infarction | CPT/HCPCS: 93010 ==

== ENCOUNTER → 2025-01-22 19:48 | Outpatient (BNV) | payer MEDICARE, MEDICAID, SELFPAY | PROVIDERS: PCP Internal Medicine; Visit Provider Radiology Diagnostic Radiology | DX: R07.9 Chest pain, unspecified (principal); M43.22 Fusion of spine, cervical region; Z95.810 Presence of automatic (implantable) cardiac defibrillator | CPT/HCPCS: 71046 ==

== ENCOUNTER 2025-02-06 14:13 | Inpatient (IN) | payer MEDICARE, MEDICAID, SELFPAY ==
[2025-02-06] VITALS (12 sets, daily range): BP systolic 95–127; BP diastolic 56–85; PULSE 91–130; RESP 18–25; TEMP 36.2–37.1; O2SAT 80–98; BMI 27.7
--- NOTE | ~2025-02-06 | US_ITS ---
CLINICAL HISTORY: calf pain and swelling Venous duplex ultrasound left lower extremity Comparison: None provided Findings: The visualized deep veins are fully compressible with normal Doppler color flow and spectral tracings. No popliteal cyst. IMPRESSION: 1. Negative for left lower extremity deep vein thrombosis. This document has been electronically signed by: Corona Jacobo MD on 02/06/2025 19:33:37
--- NOTE | ~2025-02-06 | XR_ITS ---
CLINICAL HISTORY: cough 2 view chest x-ray Comparison: CR - XR CHEST 2V - 01/22/25 20:[address]/SR - CT CHEST W IV CON - 10/11/24 20:26 EDT Findings: No focal infiltrate. There is some increased streaky perihilar opacity suggesting bronchial wall thickening. Heart size is normal. There is a left subclavian single lead pacemaker defibrillator with lead in the right ventricle. Bone anchors in the right humerus. Orthopedic hardware overlies the lower cervical spine. IMPRESSION: Findings suggestive of bronchitis, viral infection or reactive airways disease. No focal infiltrate. This document has been electronically signed by: Corona Jacobo MD on 02/06/2025 16:22:24
--- NOTE | ~2025-02-06 | CT_ITS ---
CLINICAL HISTORY: hypoxic, tachycardic, hx of clots CT angiography chest with contrast. 3D Postprocessing. Comparison: CT/SR - CT CHEST W IV CON - 10/11/24 20:26 EDT Findings: There is a left subclavian pacemaker with leads in the right heart. Moderate cardiomegaly. No evidence of right heart strain. Coronary artery calcifications present. The thoracic aorta is normal caliber. No pulmonary artery filling defects. The visualized thyroid and mediastinum are unremarkable. No consolidation or effusion. The visualized upper abdomen is unremarkable. The bones are intact. IMPRESSION: 1. No pulmonary embolus. 2. Cardiomegaly. Coronary artery calcifications. This document has been electronically signed by: Corona Jacobo MD on 02/06/2025 20:36:56
--- NOTE | 2025-02-06 14:26 | ECG_ITS ---
Test Reason : SOB Blood Pressure : */* mmHG Vent. Rate : 100 BPM Atrial Rate : 100 BPM P-R Int : 126 ms QRS Dur : 104 ms QT Int : 380 ms P-R-T Axes : 57 -54 59 degrees QTcB Int : 490 ms Sinus rhythm with occasional pacer spikes without capture Left anterior fascicular block Septal infarct , age undetermined Abnormal ECG When compared with ECG of 22-Jan-2025 19:41, loss of capture after pacing. Consider device evaluation Referred By: Hortensia Rodriguez Electronically Signed By: SABA LIEBERMAN MD
[2025-02-06 14:46] LABS: Hematocrit 46.1 % (42.0-52.0); Hemoglobin 15.5 g/dl (14.0-18.0); Imm Gran Abs Auto 0.03 X10*3/uL (0.00-0.03); Imm Gran Pct Auto 0.3 % (0.0-0.4); Lymphocytes Absolute Auto 2.8 X10*3/uL (1.2-4.9); MANUAL DIFF FLAG NO; Mean Corpuscular HGB Conc 33.6 g/dl (31.0-36.0); Mean Corpuscular Hemoglobin 30.8 pg (27.0-33.0); Mean Corpuscular Volume 91.7 fL (80.0-98.0); NRBC Abs Auto 0.000 X10*3/uL (0.0-0.012); NRBC Pct Auto 0.0 /100WBC (0.0-0.2); Platelet Count 192 X10*3/uL (160-400); Red Blood Count 5.03 X10*6/uL (4.60-5.80); White Blood Count 10.3 X10*3/uL (4.8-10.8)
[2025-02-06] MEDS: Albuterol Sulfate 2.5 MG, Albuterol/Iprat 2.5/0.5MG 3 ML 3 ML INHALE (14:46)
[2025-02-06 15:05] LABS: Alanine Aminotransferase 19 U/L (0-40); Albumin Level 3.9 g/dL (3.5-5.0); Alkaline Phosphatase 66 U/L (39-117); Anion Gap 13 (12-20); Aspartate Amino Transferase 21 U/L (5-37); Blood Urea Nitrogen 12 mg/dL (9-16); Calcium 8.8 mg/dL (8.4-10.2); Carbon Dioxide 25 mmol/L (22-29); Chloride 108 mmol/L (96-108); Creatinine Clr Calc Pharmacy 126.1; Estimated Glomerular Filt Rate > 60; Magnesium 2.1 mg/dL (1.6-2.6); Potassium 4.0 mmol/L (3.3-5.1); Sodium 142 mmol/L (135-145); Total Protein 6.5 g/dL (6.5-8.0)
[2025-02-06 15:25] LABS: Resp Syncy Virus RNA Qual PCR NEGATIVE (Negative); SARS COV2 PCR INHOUSE NEGATIVE (Negative)
--- NOTE | 2025-02-06 15:47 | ED_ITS ---
HPI - General Adult General Chief complaint: General Medical Stated complaint: General Medical Time Seen by Provider: 02/06/25 15:47 Source: patient, RN notes reviewed and old records reviewed Mode of arrival: ambulatory Limitations: no limitations History of Present Illness ED Provider: Natalio HPI narrative: Patient is a 54-year-old male with history of CVA, cardiomyopathy, history of cardiac arrest in 2019, cardiac defibrillator in place, HTN, restrictive lung disease, COPD, smoking presenting to the emergency department with 4 days of cough, shortness of breath, nausea, vomiting, diarrhea back pain. States that he is having chest pain while coughing. Reports shortness of breath/wheezing. MD complaint: cough, vomiting, diarrhea Onset (ago): day(s) Related Data Home Medications ?Medication ?Instructions ?Recorded ?Confirmed aspirin 81 mg tablet,delayed 81 mg PO DAILY 06/25/24 1 04/13/24 release (Adult Aspirin Regimen) baclofen 10 mg tablet 10 mg PO BEDTIME PRN MUSCLE SPASMS 02/07/25 02/10/25 Previous Rx's ?Medication ?Instructions ?Recorded apixaban 5 mg tablet (Eliquis) 5 mg PO BID #180 tabs 0 03/22/24 nitroglycerin 0.4 mg sublingual 0.4 mg sublingual Q5M PRN chest 03/29/24 tablet pain #20 tabs carvedilol 6.25 mg tablet 6.25 mg PO BID 30 days #60 t abs 01/24/25 albuterol sulfate 90 mcg/actuation 2 puff inhalation Q 4-6H PRN 01/31/25 aerosol inhaler (Ventolin HFA) Wheezing #8.5 grams lorazepam 1 mg tablet 1 mg PO BEDTIME PRN anxiety #30 02/03/25 tabs albuterol sulfate 2.5 mg/3 mL 2.5 mg (3 mL) inhalation Q4H PRN 02/09/25 (0.083 %) solution for nebulization shortness of breat h or wheezing #75 mL lidocaine 4 % topical patch 1 patch transdermal DAILY #12 ea 02/09/25 (Lidocaine Pain Relief) nicotine 21 mg/24 hr daily 21 mg transdermal DAILY #30 ea 02/09/25 transdermal patch oseltamivir 75 mg capsule (Tamiflu) 75 mg PO Q12H #5 c aps 02/09/25 prednisone 10 mg tablet 10 mg PO DIRECTED #20 tab s 02/09/25 Allergies Allergy/AdvReac Type Severity Reaction Status Date / Time bupropion (From Wellbutrin) Allergy Intermediate Hives, Rage Verified 02/06/25 14:24 varenicline (From Chantix) Allergy Intermediate Agitation, Verified 02/06/25 14:24 Aggression codeine (Codeine) Allergy Mild HIVES/ITCHI Verified 02/06/25 14:24 NG methadone (Methadone) Allergy Mild HIVES/ITCHI Verified 02/06/25 14:24 NG Black Pepper-Turmeric Allergy Unknown Unknown Uncoded 02/06/25 14:24 Review of Systems 2 Review of Systems: as per hpi Yes all other systems are reviewed and are negative Constitutional: Constitutional: Reports as per HPI PMFSH Past Medical History Medical History Cerebrovascular accident Cervical radiculopathy PATRICIA (obstructive sleep apnea) Cardiomyopathy Vertigo Stroke Cerebral infarction Hyperlipidemia History of TIA (transient ischemic attack) (~2013) History of cardiac arrest (~2019) Cardiac defibrillator in place Nonischemic cardiomyopathy Atherosclerotic cardiovascular disease Hypertension Hypercholesterolemia Restrictive lung disease COPD (chronic obstructive pulmonary disease) Cigarette nicotine dependence Nicotine dependence, cigarettes, uncomplicated Uncomplicated opioid dependence Chronic pain syndrome Rotator cuff arthropathy of both shoulders MRSA infection Surgical History History of implantable cardiac defibrillator (ICD) History of cardiac cath S/P insertion of spinal cord stimulator History of back surgery History of fusion of cervical spine History of repair of left rotator cuff History of repair of right rotator cuff History of cholecystectomy History of colonoscopy Family History Family History Mother Multiple sclerosis Father Diabetes Amputat leg, bilat-complicated Sister Lupus Social History Social History Household Members: Significant Other Housing: Other Do you presently have visiting nurse or other home services: No Alcohol intake: former Year quit: 2016 Patient Tobacco Use Status: Current everyday Tobacco user Tobacco use type: Cigarette Cigarette Packs Per Day: 1 Cigarettes Per Day: 20.0 Years Smoked: (onset 9yo, 1/2-3ppd x 42yrs, now <1/4ppd - 30+PYH) e-Cigarette/Vaping Use: Currently Using Second Hand Smoke Exposure: Yes Advance Directives Date on File: 07/27/23 service: No Cognitive needs: No Hearing needs: No Vision needs: Yes (Glasses) Physical Exam ED Vital Signs: Vital Signs - 24 hr 02/06/25 14:22 02/06/25 14:40 02/06/25 16:58 Temperature 97.2 F 97.6 F Pulse Rate 94 95 91 Respiratory Rate 20 23 H 18 Blood Pressure 98/68 103/64 Pulse Oximetry 97 97 Oxygen Delivery Method Room Air Room Air 02/06/25 17:01 02/06/25 17:35 02/06/25 17:35 Temperature Pulse Rate 91 130 H Respiratory Rate 19 Blood Pressure Pulse Oximetry 80 L 80 L Oxygen Delivery Method Room Air 02/06/25 17:36 02/06/25 17:50 Temperature 97.3 F Pulse Rate 97 94 Respiratory Rate 19 Blood Pressure 95/56 L Pulse Oximetry 97 93 Oxygen Delivery Method Room Air Room Air BMI result Body Mass Index 27.7 Vital signs have been reviewed and appear to be correct. Blood pressure normal. Heart rate normal. Respiratory rate normal. Temperature normal. Oxygen saturation normal. Const General: cooperative, healthy appearing and no acute distress Orientation/consciousness: oriented to person, oriented to place, oriented to time and patient oriented x3 Limitations: no limitations HENMT Head: Yes normocephalic and Yes atraumatic Ears: external ears normal General nose exam: Normal external nose present Face and sinus: Yes face symmetric Mouth: oropharynx normal and moist mucous membranes Throat: Yes uvula midline Eyes Pupils: Equal, round and reactive pupils present Neck Neck: Yes normal visual inspection and Yes supple Resp Effort & Inspection: not able to speak in complete sentences and labored Auscultation: wheezes throughout Cardio Rate: regular rate Rhythm: regular rhythm Heart sounds: S1 normal heart sound present and S2 normal heart sound present GI Palpation (GI): Soft to palpation and nontender Auscultation: normoactive bowel sounds General: Yes no CVA tenderness Back/Spine/Pelvis Back: no CVA tenderness Skin General skin exam: elasticity normal and turgor normal Neuro General: oriented to person, oriented to place, oriented to time, patient oriented x3, moves all extremities, no focal motor deficits and CN's II-XI intact bilaterally Cranial nerves: Yes Equal, round and reactive pupils present Cognition (Neuro): normal cognition Extrem General: Yes full ROM, Yes no pedal edema and Yes no calf tenderness Psych Mental Status: mental status grossly normal Affect: normal affect Thought process: Normal thought process present Medications Administered Discontinued Medications Generic Name Dose Route Start Last Admin Trade Name Freq PRN Reason Stop Dose Admin Albuterol Sulfate 2.5 mg/ 5 mg 02/06/25 17:01 02/06/25 17:05 Albuterol Sulfate 2.5 mg INHALE 02/06/25 17:02 5 mg ONCE ONE Administration Albuterol/Ipratropium 3 ml 02/06/25 19:50 02/08/25 13:53 Albuterol/Iprat 2.5/0.5mg 3 Ml Ampul.Neb INHALE 3 ml Q4H PRN Administration Shortness of Breath/Wheezing Apixaban 5 mg 02/06/25 21:00 02/09/25 08:18 Apixaban 5 Mg Tablet PO 5 mg BID PATRICIA Administration Aspirin 81 mg 02/08/25 09:00 02/09/25 08:18 Aspirin Enteric Coated 81 Mg Tablet.Dr PO 81 mg DAILY PATRICIA Administration Budesonide 0.5 mg 02/06/25 20:00 02/09/25 07:53 Budesonide 0.5 Mg/2 Ml Ampul.Neb INHALE 0.5 mg RBID PATRICIA Administration Carvedilol 6.25 mg 02/07/25 21:00 02/09/25 08:18 Carvedilol 6.25 Mg Tablet PO 6.25 mg BID PATRICIA Administration Protocol Albuterol Sulfate 2.5 mg/ 0 mg 02/06/25 14:40 02/06/25 14:46 Albuterol/Ipratropium 3 ml INHALE 02/06/25 14:41 5 dose ONCE ONE Administration Guaifenesin 10 ml 02/06/25 18:02 02/06/25 18:21 Guaifenesin 200 Mg/10 Ml 10 Ml Liquid PO 02/06/25 18:03 10 ml ONCE ONE Administration Guaifenesin 10 ml 02/06/25 20:13 02/08/25 20:58 Guaifenesin 200 Mg/10 Ml 10 Ml Liquid PO 10 ml Q4H PRN Administration Cough Hydromorphone HCl 0.5 mg 02/06/25 19:41 02/06/25 20:03 Hydromorphone Hcl 0.5 Mg/0.5 Ml Syringe IVPUSH 02/06/25 19:42 0.5 mg ONCE ONE Administration Protocol Hydromorphone HCl 0.5 mg 02/06/25 22:55 02/07/25 12:24 Hydromorphone Hcl 1 Mg/Ml Syringe IVPUSH 0.5 mg Q4H PRN Administration Pain, Severe (Pain Scale 7-10) Protocol Hydromorphone HCl 0.25 mg 02/07/25 16:21 02/07/25 16:45 Hydromorphone Hcl 1 Mg/Ml Syringe IVPUSH 0.25 mg Q4H PRN Administration Pain, Severe (Pain Scale 7-10) Protocol Hydromorphone HCl 0.4 mg 02/07/25 17:25 02/09/25 12:46 Hydromorphone Hcl 1 Mg/Ml Syringe IVPUSH 0.4 mg Q4H PRN Administration Pain, Severe (Pain Scale 7-10) Protocol Sodium Chloride 1,000 mls @ 999 mls/hr 02/06/25 14:30 02/06/25 15:39 Ns IV 02/06/25 15:30 Infused .Q1H1M PATRICIA Infusion Acetaminophen 1,000 mg in 100 mls @ 400 mls/hr 02/06/25 16:32 02/06/25 17:03 Ofirmev IV 02/06/25 16:46 Infused ONCE ONE Infusion Lactated Ringer's 1,000 mls @ 125 mls/hr 02/06/25 20:00 02/08/25 20:45 Lr IVCONT Infused .Q8H PATRICIA Infusion Lactated Ringer's 1,000 mls @ 999 mls/hr 02/06/25 23:45 02/07/25 01:08 Lr IV 02/07/25 00:45 Infused .Q1H1M PATRICIA Infusion Iohexol 65 ml 02/06/25 20:01 02/06/25 20:01 Iohexol 350 Mg/Ml 100 Ml Infus..Btl IV 02/06/25 20:02 65 ml ONCE ONE Administration Ketorolac Tromethamine 15 mg 02/06/25 21:08 02/06/25 21:47 Ketorolac Tromethamine 30 Mg/Ml Vial IVPUSH 02/06/25 21:09 15 mg ONCE ONE Administration Lidocaine 1 patch 02/07/25 11:15 02/09/25 08:17 Lidocaine 4 % Patch Adh..Patch TRANSDERMA 1 patch DAILY PATRICIA Administration Protocol Lorazepam 1 mg 02/06/25 20:49 02/08/25 22:54 Lorazepam 1 Mg Tablet PO 1 mg BEDTIME PRN Administration sleep Magnesium Hydroxide 30 ml 02/06/25 19:50 02/08/25 17:35 Milk Of Magnesia 30 Ml Oral.Susp PO 30 ml DAILY PRN Administration Constipation Melatonin 6 mg 02/07/25 20:27 02/07/25 21:47 Melatonin 3 Mg Tablet PO 6 mg BEDTIME PRN Administration Insomnia Methylprednisolone Sodium Succinate 125 mg 02/06/25 19:54 02/06/25 20:15 Methylprednisolone Sod Succ 125 Mg/2 Ml Vial IVPUSH 02/06/25 19:55 125 mg ONCE ONE Administration Methylprednisolone Sodium Succinate 60 mg 02/07/25 09:00 02/07/25 08:21 Methylprednisolone Sod Succ 125 Mg/2 Ml Vial IVPUSH 60 mg Q12H PATRICIA Administration Methylprednisolone Sodium Succinate 40 mg 02/08/25 09:00 02/09/25 08:18 Methylprednisolone Sod Succ 125 Mg/2 Ml Vial IVPUSH 40 mg DAILY PATRICIA Administration Nicotine 21 mg 02/06/25 20:15 02/09/25 08:17 Nicotine 21 Mg Patch.Td24 TRANSDERMA 21 mg DAILY PATRICIA Administration Oseltamivir Phosphate 75 mg 02/06/25 20:00 02/09/25 08:18 Oseltamivir Phosphate 75 Mg Capsule PO 02/11/25 19:59 75 mg Q12H PATRICIA Administration Senna 17.2 mg 02/06/25 21:00 02/08/25 20:57 Sennosides 8.6 Mg Tablet PO 17.2 mg BEDTIME PATRICIA Administration Sodium Chloride 3 ml 02/07/25 00:00 02/09/25 08:19 0.9 % Sodium Chloride Flush 3 Ml Syringe IVFLUSH 3 ml QSHIFT PATRICIA Administration Medical Decision Making Medical Decision Making MDM Narrative: Patient is a 54-year-old male with history of CVA, cardiomyopathy, history of cardiac arrest in 2019, cardiac defibrillator in place, HTN, restrictive lung disease, COPD, smoking presenting to the emergency department with 4 days of cough, shortness of breath, nausea, vomiting, diarrhea back pain. On exam patient is awake, A+Ox3, VS WNL, afebrile, normal neurological exam without focal deficits, physical exam findings as above. Given reported symptoms and physical exam findings, initial differential includes but is not limited to viral illness, COVID, flu, RSV, bronchitis, pneumonia, gastroenteritis, electrolyte abnormality, dehydration. Labs unremarkable. Viral serology positive for influenza A. X-ray chest notable for findings suggestive of viral illness, no evidence of pneumonia. My interpretation is in agreement with the radiologist's interpretation. Patient continues to have increased work of breathing and diffuse wheezing despite breathing treatment. Will obtain ambulatory oxygen saturation, ask RT for repeat breathing treatment. RT repeated treatment, ambulation trial done, O2 dropped to 80% on room air and patient became tachycardic to 130. Case discussed with hospitalist, Dr. Strong, who is requesting d-dimer, dimer ordered. Patient now reporting hemoptysis to Dr. Strong as well as left calf pain and swelling. U/S and CTA chest ordered. Admission versus transfer will be determined after imaging. Patient is signed out to VISHNU Bazan pending results of imaging and ultimate disposition. Differential Diagnosis Differential Diagnoses: The differential diagnosis associated with the presentation includes As per [facility] Admission/Observation Consideration of admission/observation: Escalation of care including admission/observation considered Consult Healthcare Provider Management of the patient was discussed with: Hospitalist Lab Data [facility] Lab Attestation statement: I reviewed the patient's lab results. As per [facility] 02/07/25 05:25 02/07/25 05:25 Labs: Lab Results 02/06/25 02/06/25 Range/Units 14:36 18:24 WBC 10.3 (4.8-10.8) X10*3/uL RBC 5.03 (4.60-5.80) X10*6/uL Hgb 15.5 (14.0-18.0) g/dl Hct 46.1 (42.0-52.0) % MCV 91.7 (80.0-98.0) fL MCH 30.8 (27.0-33.0) pg MCHC 33.6 (31.0-36.0) g/dl RDW 12.5 (11.0-16.0) % Plt Count 192 (160-400) X10*3/uL MPV 10.5 (9.4-12.4) fL Immature Gran % (Auto) 0.3 (0.0-0.4) % Neut % (Auto) 61.6 (45-73) % Lymph % (Auto) 27.3 (20-40) % [facility] [facility] % (Auto) 8.7 (2-11) % Eos % (Auto) 1.7 (0-4) % Baso % (Auto) 0.4 (0-2) % Lymph # (Auto) 2.8 (1.2-4.9) X10*3/uL [facility] [place] [facility] # (Auto) 0.9 (0.1-1.2) X10*3/uL Eos # (Auto) 0.2 (0.0-0.4) X10*3/uL Baso # (Auto) 0.0 (0.0-0.2) X10*3/uL Abs Immat Gran (auto) 0.03 (0.00-0.03) X10*3/uL Absolute Neuts (auto) 6.3 (2.0-8.3) x10*3/uL Absolute Nucleated RBC 0.000 (0.0-0.012) X10*3/uL Nucleated RBC % (auto) 0.0 (0.0-0.2) /100WBC D-Dimer High Sensitivty < 150 NG/ML Sodium 142 (135-145) mmol/L Potassium 4.0 (3.3-5.1) mmol/L Chloride 108 (96-108) mmol/L Carbon Dioxide 25 (22-29) mmol/L Anion Gap 13 (12-20) BUN 12 (9-16) mg/dL Creatinine 0.76 (0.5-1.4) mg/dL Estim Creat Clear Calc 126.1 Estimated GFR > 60 Random Glucose 86 (60-115) mg/dL Calcium 8.8 (8.4-10.2) mg/dL Magnesium 2.1 (1.6-2.6) mg/dL Total Bilirubin 0.7 (0.0-1.0) mg/dL Direct Bilirubin 0.2 (0.0-0.5) mg/dL AST 21 (5-37) U/L ALT 19 (0-40) U/L Alkaline Phosphatase 66 (39-117) U/L NT-Pro-B Natriuret Pep 463.1 H (<300) pg/mL Total Protein 6.5 (6.5-8.0) g/dL Albumin 3.9 (3.5-5.0) g/dL TSH 0.77 (0.32-4.0) uIU/mL Influenza Type A (PCR) POSITIVE A (Negative) Influenza Type B (PCR) NEGATIVE (Negative) RSV RNA Qual (PCR) NEGATIVE (Negative) SARS-CoV-2 RNA (RT-PCR) NEGATIVE (Negative) Independent Interpretation I performed an independent interpretation of an: Plain X-Ray Interpretation: X-ray chest notable for findings suggestive of viral illness, no evidence of pneumonia. Radiology Impression Discussion of test interpretation with radiology: I have reviewed the radiologist's reading. Radiologist Impression: 2 view chest x-ray Comparison: CR - XR CHEST 2V - 01/22/25 20:[address]/SR - CT CHEST W IV CON - 10/11/24 20:26 EDT Findings: No focal infiltrate. There is some increased streaky perihilar opacity suggesting bronchial wall thickening. Heart size is normal. There is a left subclavian single lead pacemaker defibrillator with lead in the right ventricle. Bone anchors in the right humerus. Orthopedic hardware overlies the lower cervical spine. IMPRESSION: Findings suggestive of bronchitis, viral infection or reactive airways disease. No focal infiltrate. External Record Review External record reviewed: Inpatient record, Office record and Outpatient record Discharge Plan Discharge Clinical Impression: Influenza A, Hypoxia Patient Disposition: Admitted As Inpatient Interventions: Admission Worksheet (ED) Last Done: 02/07/25 00:37 Discharge Date/Time: 02/07/25 01:27
[2025-02-06] MEDS: Albuterol Sulfate 2.5 MG, Albuterol Sulfate (0.083%) 2.5 MG 5 MG INHALE (17:05)
[2025-02-06] MEDS: guaiFENesin 200 MG/10 ML 10 ML LIQUID PO (18:21)
[2025-02-06 18:47] LABS: D Dimer High Sensitivity < 150 NG/ML
--- NOTE | 2025-02-06 19:43 | PC.NURSE ---
this rn assumed care of pt, pt reporting shortness of breath sating 98%, pt placed on 2L nc for comfort. pt reports increased pain, Zimmerman aware
--- NOTE | 2025-02-06 19:57 | P.HPHOSP_ITS ---
History of Present Illness Date of Service: 02/06/25 Attending physician on admission: Ruddy Hudson Chief Complaint: Dyspnea Patient is A 54-year-old with past medical history CAD, NM, hypertension, COPD/ asthma, hyperlipidemia, TIA, PATRICIA, CM/NSVT/ AICD in place , COLETTE, BPH presents with 4 days of progressive shortness of breath and productive cough without chest pain. Patient denies any recent travel or exposure to anybody with upper respiratory illness. Patient found to be positive for influenza A. Patient is an active smoker, 1PPD and also vapes nicotine. Patient experienced tachypnea but no fever or leukocytosis. BP borderline in the ED. Patient has required oxygen via nasal cannula but does not use oxygen at home. Pt is supposed to use CPAP at home for PATRICIA but is not always complaint. 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 Workup in the ED included Left lower extremity Doppler negative for DVT. Patient is on Eliquis. CTA negative for PE, noted for CM Evidence of bronchitis noted on CXR with no infiltrates. EKG with prolonged QTC 490. LA, VBG pending. Pt being admitted for acute hypoxic respiratory failure, Influenza A and bronchitis with need for close hmeodynamic monitoring. 2200 nursing notified this radio script writer that pt is requesting dilaudid IV every 4 hours for abdominal pain related to coughing. Pt received 0.5 IV dilaudid from ED provider. Pt does not have any narcotics listed on home list. Pt prescribed toradol IV X1 (one time only) noting pt is on eliquis. Tylenol also available and splinting pillow provided. Antitussives also ordered. Pt is not able to take po oxycodone or tramadol due to hx of reaction (itching, rash). Prn IV dilaudid for next 12 hours only, 0.5 Q4PRN. Review of Systems 2 Review of Systems: Patient denies any chest, abdominal pain, nausea, vomiting, constipation or diarrhea. Patient is reporting notable shortness of breath at rest. Patient denies any lower calf pain, or issues with immobility noting multiple history of back surgeries. Patient denies any loss of bowel or bladder control. Patient denies any headaches or visual changes. Patient denies use of alcohol, marijuana or illicit drugs. [facility] Medical History Cerebrovascular accident Cervical radiculopathy PATRICIA (obstructive sleep apnea) Cardiomyopathy Vertigo Stroke Cerebral infarction Hyperlipidemia History of TIA (transient ischemic attack) (~2013) History of cardiac arrest (~2019) Cardiac defibrillator in place Nonischemic cardiomyopathy Atherosclerotic cardiovascular disease Hypertension Hypercholesterolemia Restrictive lung disease COPD (chronic obstructive pulmonary disease) Cigarette nicotine dependence Nicotine dependence, cigarettes, uncomplicated Uncomplicated opioid dependence Chronic pain syndrome Rotator cuff arthropathy of both shoulders MRSA infection Functional capacity: independent ambulation Family History Mother Multiple sclerosis Father Diabetes Amputat leg, bilat-complicated Sister Lupus Surgical History History of implantable cardiac defibrillator (ICD) History of cardiac cath S/P insertion of spinal cord stimulator History of back surgery History of fusion of cervical spine History of repair of left rotator cuff History of repair of right rotator cuff History of cholecystectomy History of colonoscopy Social History Household Members: Family Housing: House Do you presently have visiting nurse or other home services: No Alcohol intake: former Year quit: 2016 Patient Tobacco Use Status: Current everyday Tobacco user Tobacco use type: Cigarette, Cigar and Smokeless Tobacco Cigarette Packs Per Day: 0.5 Cigarettes Per Day: 10 Years Smoked: (onset 9yo, 1/2-3ppd x 42yrs, now <1/4ppd - 30+PYH) e-Cigarette/Vaping Use: Currently Using Second Hand Smoke Exposure: Yes Advance Directives: Yes Advance Directives on File: Yes Advance Directives Date on File: 07/27/23 service: No Cognitive needs: No Hearing needs: No Vision needs: Yes (Glasses) Ebola Risk: Travel/Contact With Anyone From Affected Area/s: No Has Patient Experienced Ebola Symptoms: No Meds Allergies Allergy/AdvReac Type Severity Reaction Status Date / Time bupropion (From Wellbutrin) Allergy Intermediate Hives, Rage Verified 02/06/25 14:24 varenicline (From Chantix) Allergy Intermediate Agitation, Verified 02/06/25 14:24 Aggression codeine (Codeine) Allergy Mild HIVES/ITCHI Verified 02/06/25 14:24 NG methadone (Methadone) Allergy Mild HIVES/ITCHI Verified 02/06/25 14:24 NG Black Pepper-Turmeric Allergy Unknown Unknown Uncoded 02/06/25 14:24 Active Medications: Current Medications Acetaminophen (Acetaminophen 325 Mg Tablet) 650 mg PO Q6H PRN PRN Reason: Pain, Mild 1-3,fever,headache Albuterol/Ipratropium (Albuterol/Iprat 2.5/0.5mg 3 Ml Ampul.Neb) 3 ml INHALE Q4H PRN PRN Reason: Shortness of Breath/Wheezing Calcium Carbonate (Calcium Carbonate 750 Mg Tab.Chew) 750 mg PO Q4H PRN PRN Reason: Heartburn Lactated Ringer's (Lr) 1,000 mls @ 125 mls/hr IVCONT .Q8H PATRICIA Magnesium Hydroxide (Milk Of Magnesia 30 Ml Oral.Susp) 30 ml PO DAILY PRN PRN Reason: Constipation Ondansetron HCl (Ondansetron Hcl 4 Mg/2 Ml Vial) 4 mg IVPUSH Q8H PRN PRN Reason: Nausea and Vomiting Polyethylene Glycol (Polyethylene Glycol 3350 17 Gm Powd.Pack) 17 gm PO DAILY PRN PRN Reason: Constipation Senna (Sennosides 8.6 Mg Tablet) 17.2 mg PO BEDTIME PATRICIA Sodium Chloride (0.9 % Sodium Chloride Flush 3 Ml Syringe) 3 ml IVFLUSH QSHIFT PATRICIA Home Medications ?Medication ?Instructions ?Recorded ?Confirmed ?Last Taken ?Type aspirin 81 mg tablet,delayed 81 mg PO DAILY 06/25/24 0 08/25/24 Unknown History release (Adult Aspirin Regimen) Physical Exam 2 Vital Signs and Narrative: Vital Signs: Last Vital Signs Temp 97.3 F 02/06/25 17:50 Pulse 93 02/06/25 19:44 Resp 25 H 02/06/25 19:44 BP 95/56 L 02/06/25 17:50 Pulse Ox 98 02/06/25 19:44 O2 Del Method Nasal Cannula 02/06/25 19:44 O2 Flow Rate 2 02/06/25 19:44 BMI result Body Mass Index 27.7 Alert and orientated X3, able to give good history. Neuro: CN II-X11 intact, no deficits, visual acuity intact EYES: PERRLA, EOM intact, sclerae nonicteric conjunctiva pink ENT: hearing intact, no issues with swallowing, uvula midline, lips moist, nares patent no epistaxis Cardiac: S1 S2 RRR, no murmur, no JVD, no edema in Lower ext Pulmonary: lungs diminished bilateral, mild expiratory wheeze Abdominal: BS active in all 4 quadrants, no guarding, tenderness, rebounding MSK: strength 5/5 upper and lower extremities : no CVA tenderness no bladder distension Extremities: no edema in lower extremities, PT and DP pulses palpable +2 Psych: mood anxious, judgement and insight good Skin: Multiple tattoos upper extremity, no new rashes or lesions Results Labs 02/06/25 14:36 02/06/25 14:36 Labs: Laboratory Results - last 24 hr 02/06/25 02/06/25 14:36 18:24 MCV 91.7 MCH 30.8 MCHC 33.6 RDW 12.5 Plt Count 192 MPV 10.5 Immature Gran % (Auto) 0.3 Neut % (Auto) 61.6 Lymph % (Auto) 27.3 [place] % (Auto) 8.7 Eos % (Auto) 1.7 Baso % (Auto) 0.4 Lymph # (Auto) 2.8 [place] # (Auto) 0.9 Eos # (Auto) 0.2 Baso # (Auto) 0.0 Abs Immat Gran (auto) 0.03 Absolute Neuts (auto) 6.3 Absolute Nucleated RBC 0.000 Nucleated RBC % (auto) 0.0 D-Dimer High Sensitivty < 150 Anion Gap 13 Estim Creat Clear Calc 126.1 Estimated GFR > 60 Random Glucose 86 Calcium 8.8 Magnesium 2.1 Total Bilirubin 0.7 Direct Bilirubin 0.2 AST 21 ALT 19 Alkaline Phosphatase 66 Total Protein 6.5 Albumin 3.9 Influenza Type A (PCR) POSITIVE A Influenza Type B (PCR) NEGATIVE RSV RNA Qual (PCR) NEGATIVE SARS-CoV-2 RNA (RT-PCR) NEGATIVE Assessment and Plan (1) Acute hypoxic respiratory failure: Status: Acute (2) Influenza A: Status: Acute Plan Patient is A 54-year-old with past medical history CAD, NM, hypertension, COPD/ asthma, hyperlipidemia, TIA, PATRICIA, CM/NSVT/ AICD in place , COLETTE, BPH presents with 4 days of progressive shortness of breath and productive cough without chest pain. Patient denies any recent travel or exposure to anybody with upper respiratory illness. Patient found to be positive for influenza A. Pt does not meet criteria for sepsis on admission. Patient being admitted for acute hypoxic respiratory failure secondary to influenza a, bronchitis with active history of smoking and known COPD. Acute hypoxic respiratory failure/ Influenza A Positive Oxygen via NC, wean as tolerated CTA negative for PE, Dopplers Neg for DVT LLE BNP pending VBG 7.43, 39, 59, 26 LA 2.3, IVF bolus and rate ordered IS Tamiflu 75 mgs BID Mask should be worn when not alone Pulmonary consultation ordered per attending COPD/ Bronchitis/ cough Chronic, continue nebs prn and scheduled budesoine Methylprednisolone prescribed, taper 60 mg BID Continuous Pulse Oximetry Supportive care with antitussives/ splinting pillow provided Nonnarcotics for pain preferred Home O2 study if needed closer to discharge Tobacco dependence NRT ordered Pt counseled on the benefits of smoking cessation HTN BP borderline low on admission Monitor and resume home medications when able HLD Cardiac diet Statin can resume as LFTs are stable CM/AICD/HX of NM/ NSVT BNP pending Pt normally on coreg, BP borderline in ED, med rec pending AICD last interrogation 01/2025, no firing noted, recent increase in coreg due to runs of NSVT, follows with [facility] [place] Cardiology PATRICIA CPAP, pt agreeable Pt has been noncompliant at home, education provided noting pt's cardiac hx BPH/ HX of urinary retention UA pending Continue baclofen once med rec completed Hold finasteride as BP has been borderline low. resume in AM based on med rec and BP COLETTE Lorazepam prn HS Duloxetine on hold as Qtc 490, MG 2.1 Repeat ECG in AM Telemetry DVT prophylaxis: pt is on eliquis MED REC PENDING FULL CODE Patient will require at least a 2 midnight stay for close hemodynamic monitoring, continuous pulse ox as patient's condition can decline. Quality Stroke Does the patient have a stroke diagnosis?: No Reason for No Anti-thrombotic by Day Two: N/A - Med Ordered VTE Prior VTE?: No VTE Risk Level:: Medical - moderate - high VTE Device Contraindication: N/A - Device Ordered VTE Drug Contraindication: N/A - Med Ordered
[2025-02-06] MEDS: iohexoL 350 MG/ML 100 ML INFUS..BTL 65 ML IV (20:01)
[2025-02-06] MEDS: Lactated Ringers 1,000 ML 125 ML IVCONT (20:09)
[2025-02-06 20:23] LABS: NT Pro B Type Natriuretic Pept 463.1 pg/mL (<300)
[2025-02-06 20:32] LABS: Appearance Urine Clear; Glucose Urine UA Negative (Negative); PH 6.5 (5.0-9.0); Specific Gravity - Urine 1.015 (1.005-1.025)
--- NOTE | 2025-02-06 20:41 | PC.NURSE ---
pt placed on a hospital bed for comfort at this time, medicated per mar, tolerated whole well with water.
[2025-02-06 20:44] LABS: Venous Blood Gas Refer to POC result
[2025-02-06 20:46] LABS: VBG HCO3 26 mmol/L (22-26); VBG O2 % Saturation 77.0 %
[2025-02-06] MEDS: Nicotine 21 MG PATCH.TD24 TRANSDERMA (21:04)
[2025-02-06 22:40] LABS: Reflex Lactate? Lactic Acid Added
[2025-02-06 23:32] LABS: ~Lactic Acid-LAB USE ONLY 2.3 mmol/L (0.5-2.0)
[2025-02-07] VITALS (12 sets, daily range): BP systolic 92–109; BP diastolic 51–70; PULSE 68–95; RESP 18–24; TEMP 36.1–36.6; O2SAT 92–98; BMI 27.7
[2025-02-07] MEDS: Lactated Ringers 1,000 ML 999 ML IV (00:07)
[2025-02-07 01:14] LABS: Reflex Lactate? 2 Y
[2025-02-07] MEDS: guaiFENesin 200 MG/10 ML 10 ML LIQUID PO (02:02)
[2025-02-07 02:34] LABS: ~Lactic Acid-LAB USE ONLY 2.4 mmol/L (0.5-2.0)
[2025-02-07] MEDS: Lactated Ringers 1,000 ML 125 ML IVCONT ×3 (04:09→20:05)
[2025-02-07 05:33] LABS: Hematocrit 40.3 % (42.0-52.0); Hemoglobin 14.1 g/dl (14.0-18.0); Imm Gran Abs Auto 0.02 X10*3/uL (0.00-0.03); Imm Gran Pct Auto 0.3 % (0.0-0.4); Lymphocytes Absolute Auto 1.0 X10*3/uL (1.2-4.9); MANUAL DIFF FLAG SCAN; Mean Corpuscular HGB Conc 35.0 g/dl (31.0-36.0); Mean Corpuscular Hemoglobin 31.4 pg (27.0-33.0); Mean Corpuscular Volume 89.8 fL (80.0-98.0); NRBC Abs Auto 0.000 X10*3/uL (0.0-0.012); NRBC Pct Auto 0.0 /100WBC (0.0-0.2); Platelet Count 161 X10*3/uL (160-400); Red Blood Count 4.49 X10*6/uL (4.60-5.80); SCAN SMEAR FLAG 1; White Blood Count 6.6 X10*3/uL (4.8-10.8)
[2025-02-07 05:46] LABS: Alanine Aminotransferase 15 U/L (0-40); Albumin Level 3.4 g/dL (3.5-5.0); Alkaline Phosphatase 56 U/L (39-117); Anion Gap 12 (12-20); Aspartate Amino Transferase 14 U/L (5-37); Blood Urea Nitrogen 14 mg/dL (9-16); Calcium 8.4 mg/dL (8.4-10.2); Carbon Dioxide 21 mmol/L (22-29); Chloride 109 mmol/L (96-108); Creatinine Clr Calc Pharmacy 137.0; Estimated Glomerular Filt Rate > 60; Potassium 4.4 mmol/L (3.3-5.1); Sodium 138 mmol/L (135-145); Total Protein 5.7 g/dL (6.5-8.0)
[2025-02-07 07:33] LABS: Reflex Lactate? Lactic Acid Added
--- NOTE | 2025-02-07 08:00 | ECG_ITS ---
Test Reason : qtc Blood Pressure : */* mmHG Vent. Rate : 81 BPM Atrial Rate : 81 BPM P-R Int : 130 ms QRS Dur : 94 ms QT Int : 396 ms P-R-T Axes : -6 -55 -60 degrees QTcB Int : 460 ms Sinus rhythm with occasional Fusion complexes Left axis deviation Septal infarct , age undetermined Abnormal ECG When compared with ECG of 06-Feb-2025 14:33, Fusion complexes with v-pacing noted. Referred By: Taya Garvin Electronically Signed By: SABA LIEBERMAN MD
[2025-02-07] MEDS: Nicotine 21 MG PATCH.TD24 TRANSDERMA (08:21)
[2025-02-07] MEDS: 0.9 % Sodium Chloride Flush 3 ML SYRINGE IVFLUSH (08:23)
--- NOTE | 2025-02-07 10:05 | PHA.MEDREC ---
Pharmacy Consult ? Medication Reconciliation Pharmacy has completed the medication reconciliation. Spoke with pt to confirm medications. He no longer takes Lipitor, Cymbalta, Finasteride, Magnesium, and Senna.
--- NOTE | 2025-02-07 11:07 | MHC.CM.PN ---
Per [facility]OUNDS, Patient is not yet medically cleared for dc (IV Solu Medrol).
--- NOTE | 2025-02-07 11:29 | MHC.CM.PN ---
Addendum entered by Madhavi Wray 02/07/25 11:32: CORRECTION, Patient's car is here for transport at dc. Original Note: IMM was addressed with Patient. Patient lives in a house with his Daughter/HCP/Shani who will transport at dc. PCP is Dr. Colindres. Patient was functionally independent [employer].
[2025-02-07] MEDS: Lidocaine 4 % Patch ADH..PATCH 1 PATCH TRANSDERMA (11:52)
[2025-02-07] MEDS: Milk of Magnesia 30 ML ORAL.SUSP PO (12:27)
--- NOTE | 2025-02-07 16:15 | P.PNIM_ITS ---
Subjective Subjective Date of Service: 02/07/25 Interval History: c/o sternal pain with coughing and palpation; dyspnea improving Review of Systems Review of Systems: Yes all other systems are reviewed and are negative Physical Exam 2 Vital Signs: Vital Signs: Last Vital Signs Temp 97.8 F 02/07/25 15:40 Pulse 81 02/07/25 15:40 Resp 20 02/07/25 15:40 BP 104/58 L 02/07/25 15:40 Pulse Ox 96 02/07/25 15:40 O2 Del Method Nasal Cannula 02/07/25 15:40 O2 Flow Rate 1 02/07/25 15:40 BMI result Body Mass Index 27.7 Gen: in no acute distress HEENT: sclera anicteric, moist mucus membranes Neck: supple Lungs: clear to auscultation bilaterally Heart: regular rate and rhythm, no murmurs Abd: soft, non-tender, non-distended Ext: no edema Skin: warm/well-perfused Neuro: alert and oriented x3, no focal findings Psych: appropriate affect Objective Data Active Medications Acetaminophen (Acetaminophen 325 Mg Tablet) 650 mg PO Q6H PRN PRN Reason: Pain, Mild 1-3,fever,headache Albuterol/Ipratropium (Albuterol/Iprat 2.5/0.5mg 3 Ml Ampul.Neb) 3 ml INHALE Q4H PRN PRN Reason: Shortness of Breath/Wheezing Apixaban (Apixaban 5 Mg Tablet) 5 mg PO BID [facility] Last Admin: 02/07/25 08:21 Dose: 5 mg Documented By: EMI Aspirin (Aspirin Enteric Coated 81 Mg Tablet.Dr) 81 mg PO DAILY [facility] Baclofen (Baclofen 10 Mg Tablet) 10 mg PO BEDTIME PRN PRN Reason: MUSCLE SPASMS Budesonide (Budesonide 0.5 Mg/2 Ml Ampul.Neb) 0.5 mg INHALE RBID [facility] Last Admin: 02/07/25 08:58 Dose: 0.5 mg Documented By: HOLLEYOVICHRIS Calcium Carbonate (Calcium Carbonate 750 Mg Tab.Chew) 750 mg PO Q4H PRN PRN Reason: Heartburn Carvedilol (Carvedilol 6.25 Mg Tablet) 6.25 mg PO BID [facility]; Protocol Guaifenesin (Guaifenesin 200 Mg/10 Ml 10 Ml Liquid) 10 ml PO Q4H PRN PRN Reason: Cough Last Admin: 02/07/25 02:02 Dose: 10 ml Documented By: ESTEFANI Lactated Ringer's (Lr) 1,000 mls @ 125 mls/hr IVCONT .Q8H PATRICIA Last Admin: 02/07/25 11:52 Dose: 125 mls/hr Documented By: EMI Lidocaine (Lidocaine 4 % Patch Adh..Patch) 1 patch TRANSDERMA DAILY [facility]; Protocol Last Admin: 02/07/25 11:52 Dose: 1 patch Documented By: EMI Lorazepam (Lorazepam 1 Mg Tablet) 1 mg PO BEDTIME PRN PRN Reason: sleep Last Admin: 02/07/25 02:03 Dose: 1 mg Documented By: ESTEFANI Magnesium Hydroxide (Milk Of Magnesia 30 Ml Oral.Susp) 30 ml PO DAILY PRN PRN Reason: Constipation Last Admin: 02/07/25 12:27 Dose: 30 ml Documented By: EMI Methylprednisolone Sodium Succinate (Methylprednisolone Sod Succ 125 Mg/2 Ml Vial) 60 mg IVPUSH Q12H [facility] Last Admin: 02/07/25 08:21 Dose: 60 mg Documented By: EMI Nicotine (Nicotine 21 Mg Patch.Td24) 21 mg TRANSDERMA DAILY [facility] Last Admin: 02/07/25 08:21 Dose: 21 mg Documented By: EMI Nitroglycerin (Nitroglycerin 0.4 Mg Tab.Subl) 0.4 mg SUBLINGUAL Q5M PRN PRN Reason: Chest Pain Ondansetron HCl (Ondansetron Hcl 4 Mg/2 Ml Vial) 4 mg IVPUSH Q8H PRN PRN Reason: Nausea and Vomiting Oseltamivir Phosphate (Oseltamivir Phosphate 75 Mg Capsule) 75 mg PO Q12H [facility] Stop: 02/11/25 19:59 Last Admin: 02/07/25 08:20 Dose: 75 mg Documented By: EMI Polyethylene Glycol (Polyethylene Glycol 3350 17 Gm Powd.Pack) 17 gm PO DAILY PRN PRN Reason: Constipation Senna (Sennosides 8.6 Mg Tablet) 17.2 mg PO BEDTIME [facility] Last Admin: 02/06/25 20:05 Dose: 17.2 mg Documented By: NEHEMIAS Sodium Chloride (0.9 % Sodium Chloride Flush 3 Ml Syringe) 3 ml IVFLUSH QSHIFT [facility] Last Admin: 02/07/25 15:04 Dose: Not Given Documented By: EMI Non-Admin Reason: IV Running Labs 02/07/25 05:25 02/07/25 05:25 Labs: Laboratory Results - last 24 hr 02/06/25 02/06/25 02/06/25 14:36 18:24 20:19 MCV MCH MCHC RDW Plt Count MPV Immature Gran % (Auto) Neut % (Auto) Lymph % (Auto) [place] % (Auto) Eos % (Auto) Baso % (Auto) Lymph # (Auto) [place] # (Auto) Eos # (Auto) Baso # (Auto) Abs Immat Gran (auto) Absolute Neuts (auto) Absolute Nucleated RBC Nucleated RBC % (auto) Smear Tech's Comments D-Dimer High Sensitivty < 150 VBG pH VBG pCO2 VBG pO2 VBG HCO3 VBG O2 Saturation VBG Base Excess Anion Gap Estim Creat Clear Calc Estimated GFR Random Glucose Lactic Acid Lactic Acid F/U @ 2Hr Lactic Acid F/U @ 4Hr Calcium Total Bilirubin AST ALT Alkaline Phosphatase NT-Pro-B Natriuret Pep 463.1 H Total Protein Albumin TSH 0.77 Urine Color Yellow Urine Appearance Clear Urine pH 6.5 Ur Specific [place] 1.015 Urine Protein Negative Urine Glucose (UA) Negative Urine Ketones Negative Urine Blood Negative Urine Nitrite Negative Ur Leukocyte Esterase Negative 02/06/25 02/06/25 02/06/25 20:37 20:42 23:10 MCV MCH MCHC RDW Plt Count MPV Immature Gran % (Auto) Neut % (Auto) Lymph % (Auto) [place] % (Auto) Eos % (Auto) Baso % (Auto) Lymph # (Auto) [place] # (Auto) Eos # (Auto) Baso # (Auto) Abs Immat Gran (auto) Absolute Neuts (auto) Absolute Nucleated RBC Nucleated RBC % (auto) Smear Tech's Comments D-Dimer High Sensitivty VBG pH 7.43 VBG pCO2 39 VBG pO2 59 VBG HCO3 26 VBG O2 Saturation 77.0 VBG Base Excess 2.3 Anion Gap Estim Creat Clear Calc Estimated GFR Random Glucose Lactic Acid 2.3 H* Lactic Acid F/U @ 2Hr 2.3 H* Lactic Acid F/U @ 4Hr Calcium Total Bilirubin AST ALT Alkaline Phosphatase NT-Pro-B Natriuret Pep Total Protein Albumin TSH Urine Color Urine Appearance Urine pH Ur Specific [place] Urine Protein Urine Glucose (UA) Urine Ketones Urine Blood Urine Nitrite Ur Leukocyte Esterase 02/07/25 02/07/25 01:43 05:25 MCV 89.8 MCH 31.4 MCHC 35.0 RDW 12.0 Plt Count 161 MPV 10.3 Immature Gran % (Auto) 0.3 Neut % (Auto) 83.2 H Lymph % (Auto) 14.5 L [place] % (Auto) 1.8 L Eos % (Auto) 0.0 Baso % (Auto) 0.2 Lymph # (Auto) 1.0 L [place] # (Auto) 0.1 Eos # (Auto) 0.0 Baso # (Auto) 0.0 Abs Immat Gran (auto) 0.02 Absolute Neuts (auto) 5.5 Absolute Nucleated RBC 0.000 Nucleated RBC % (auto) 0.0 Smear Tech's Comments VERIFIED D-Dimer High Sensitivty VBG pH VBG pCO2 VBG pO2 VBG HCO3 VBG O2 Saturation VBG Base Excess Anion Gap 12 Estim Creat Clear Calc 137.0 Estimated GFR > 60 Random Glucose 196 H Lactic Acid 2.7 H* Lactic Acid F/U @ 2Hr Lactic Acid F/U @ 4Hr 2.4 H* Calcium 8.4 Total Bilirubin 0.5 AST 14 ALT 15 Alkaline Phosphatase 56 NT-Pro-B Natriuret Pep Total Protein 5.7 L Albumin 3.4 L TSH Urine Color Urine Appearance Urine pH Ur Specific [place] Urine Protein Urine Glucose (UA) Urine Ketones Urine Blood Urine Nitrite Ur Leukocyte Esterase Microbiology Microbiology Results: Microbiology 02/06/25 20:23 Gram Stain - Final Sputum - Expectorated Assessment and Plan (1) Influenza A: Status: Acute Plan d2, 54yo M with CAD, cardiomyopathy with hx NSVT and AICD in place, HTN, COPD/asthma, HLD, hx embolic CVA on apixaban, PATRICIA, BPH, COLETTE presenting with 4d of progressive dyspnea + cough, found to have hypoxia due to influenza acute hypoxic respiratory failure due to influenza A with COPD exacerbation - Tamiflu 02/06-02/11, IV steroids, nebulizers - supplemental O2, wean as tolerated MSK chest pain: lidocaine patch hx embolic CVA: apixaban cardiomyopathy, HTN: continue carvedilol HLD: continue statin tobacco abuse: NRT PATRICIA: nocturnal CPAP COLETTE: lorazepam VTE ppx: apixaban dispo: eventual home In my clinical judgment, the patient requires continued inpatient hospitalization for the following reasons: COPD exacerbation Total time managing care of this patient today: 35 minutes. Quality Stroke Does the patient have a stroke diagnosis?: No Reason for No Anti-thrombotic by Day Two: N/A - Med Ordered VTE Prior VTE?: No VTE Risk Level:: Medical - moderate - high VTE Device Contraindication: N/A - Device Ordered VTE Drug Contraindication: N/A - Med Ordered
[2025-02-07] MEDS: Albuterol/Iprat 2.5/0.5MG 3 ML AMPUL.NEB INHALE (17:02)
[2025-02-08] VITALS (13 sets, daily range): BP systolic 105–145; BP diastolic 51–90; PULSE 62–98; RESP 18–24; TEMP 36.4–36.9; O2SAT 93–97
[2025-02-08] MEDS: Albuterol/Iprat 2.5/0.5MG 3 ML AMPUL.NEB INHALE ×3 (00:03→13:53)
[2025-02-08] MEDS: Lactated Ringers 1,000 ML 125 ML IVCONT ×2 (04:05→12:03)
[2025-02-08] MEDS: guaiFENesin 200 MG/10 ML 10 ML LIQUID PO ×4 (05:58→20:58)
[2025-02-08] MEDS: Aspirin Enteric Coated 81 MG TABLET.DR PO (08:59)
[2025-02-08] MEDS: Nicotine 21 MG PATCH.TD24 TRANSDERMA (09:00)
[2025-02-08] MEDS: Lidocaine 4 % Patch ADH..PATCH 1 PATCH TRANSDERMA (09:00)
--- NOTE | 2025-02-08 12:53 | P.PNIM_ITS ---
Subjective Subjective Date of Service: 02/08/25 Interval History: c/o dyspnea, wheezing, chest pain with coughing Review of Systems Review of Systems: Yes all other systems are reviewed and are negative Physical Exam 2 Vital Signs: Vital Signs: Last Vital Signs Temp 98.3 F 02/08/25 11:26 Pulse 92 02/08/25 11:26 Resp 18 02/08/25 11:26 BP 111/51 L 02/08/25 11:26 Pulse Ox 95 02/08/25 11:26 O2 Del Method Room Air 02/08/25 11:26 O2 Flow Rate 1 02/07/25 15:40 BMI result Body Mass Index 27.7 Gen: short of breath, in resp distress HEENT: sclera anicteric, moist mucus membranes Neck: supple Lungs: diffuse expiratory wheezing Heart: regular rate and rhythm, no murmurs Abd: soft, non-tender, non-distended Ext: no edema Skin: warm/well-perfused Neuro: alert and oriented x3, no focal findings Psych: appropriate affect Objective Data Active Medications Acetaminophen (Acetaminophen 325 Mg Tablet) 650 mg PO Q6H PRN PRN Reason: Pain, Mild 1-3,fever,headache Albuterol/Ipratropium (Albuterol/Iprat 2.5/0.5mg 3 Ml Ampul.Neb) 3 ml INHALE Q4H PRN PRN Reason: Shortness of Breath/Wheezing Last Admin: 02/08/25 09:39 Dose: 3 ml Documented By: JORDANA Apixaban (Apixaban 5 Mg Tablet) 5 mg PO BID [facility] Last Admin: 02/08/25 09:00 Dose: 5 mg Documented By: EMI Aspirin (Aspirin Enteric Coated 81 Mg Tablet.) 81 mg PO DAILY [facility] Last Admin: 02/08/25 08:59 Dose: 81 mg Documented By: EMI Baclofen (Baclofen 10 Mg Tablet) 10 mg PO BEDTIME PRN PRN Reason: MUSCLE SPASMS Budesonide (Budesonide 0.5 Mg/2 Ml Ampul.Neb) 0.5 mg INHALE RBID [facility] Last Admin: 02/08/25 08:33 Dose: 0.5 mg Documented By: JORDANA Calcium Carbonate (Calcium Carbonate 750 Mg Tab.Chew) 750 mg PO Q4H PRN PRN Reason: Heartburn Carvedilol (Carvedilol 6.25 Mg Tablet) 6.25 mg PO BID [facility]; Protocol Last Admin: 02/08/25 08:59 Dose: 6.25 mg Documented By: EMI Guaifenesin (Guaifenesin 200 Mg/10 Ml 10 Ml Liquid) 10 ml PO Q4H PRN PRN Reason: Cough Last Admin: 02/08/25 10:36 Dose: 10 ml Documented By: EMI Hydromorphone HCl (Hydromorphone Hcl 1 Mg/Ml Syringe) 0.4 mg IVPUSH Q4H PRN; Protocol PRN Reason: Pain, Severe (Pain Scale 7-10) Last Admin: 02/08/25 08:59 Dose: 0.4 mg Documented By: EMI Lactated Ringer's (Lr) 1,000 mls @ 125 mls/hr IVCONT .Q8H [facility] Last Admin: 02/08/25 12:03 Dose: 125 mls/hr Documented By: EMI Lidocaine (Lidocaine 4 % Patch Adh..Patch) 1 patch TRANSDERMA DAILY [facility]; Protocol Last Admin: 02/08/25 09:00 Dose: 1 patch Documented By: EMI Lorazepam (Lorazepam 1 Mg Tablet) 1 mg PO BEDTIME PRN PRN Reason: sleep Last Admin: 02/07/25 02:03 Dose: 1 mg Documented By: ESTEFANI Magnesium Hydroxide (Milk Of Magnesia 30 Ml Oral.Susp) 30 ml PO DAILY PRN PRN Reason: Constipation Last Admin: 02/07/25 12:27 Dose: 30 ml Documented By: EMI Melatonin (Melatonin 3 Mg Tablet) 6 mg PO BEDTIME PRN PRN Reason: Insomnia Last Admin: 02/07/25 21:47 Dose: 6 mg Documented By: LEON Methylprednisolone Sodium Succinate (Methylprednisolone Sod Succ 125 Mg/2 Ml Vial) 40 mg IVPUSH DAILY [facility] Last Admin: 02/08/25 09:00 Dose: 40 mg Documented By: EMI Nicotine (Nicotine 21 Mg Patch.Td24) 21 mg TRANSDERMA DAILY [facility] Last Admin: 02/08/25 09:00 Dose: 21 mg Documented By: EMI Nitroglycerin (Nitroglycerin 0.4 Mg Tab.Subl) 0.4 mg SUBLINGUAL Q5M PRN PRN Reason: Chest Pain Ondansetron HCl (Ondansetron Hcl 4 Mg/2 Ml Vial) 4 mg IVPUSH Q8H PRN PRN Reason: Nausea and Vomiting Oseltamivir Phosphate (Oseltamivir Phosphate 75 Mg Capsule) 75 mg PO Q12H [facility] Stop: 02/11/25 19:59 Last Admin: 02/08/25 08:59 Dose: 75 mg Documented By: EMI Polyethylene Glycol (Polyethylene Glycol 3350 17 Gm Powd.Pack) 17 gm PO DAILY PRN PRN Reason: Constipation Senna (Sennosides 8.6 Mg Tablet) 17.2 mg PO BEDTIME PATRICIA Last Admin: 02/07/25 20:06 Dose: 17.2 mg Documented By: LEON Sodium Chloride (0.9 % Sodium Chloride Flush 3 Ml Syringe) 3 ml IVFLUSH QSHIFT [facility] Last Admin: 02/08/25 08:51 Dose: Not Given Documented By: EMI Non-Admin Reason: IV Running Labs 02/07/25 05:25 02/07/25 05:25 Microbiology Microbiology Results: Microbiology 02/06/25 20:23 Gram Stain - Final Sputum - Expectorated Sputum Culture - Preliminary Culture in progress. 02/06/25 20:37 Blood Culture - Preliminary Blood - Venous No growth after 24 hours. 02/06/25 20:23 Blood Culture - Preliminary Blood - Venous No growth after 24 hours. 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, PATRICIA, BPH, COLETTE presenting with 4d of progressive dyspnea + cough, found to have hypoxia due to influenza acute hypoxic respiratory failure due to influenza A with COPD exacerbation - Tamiflu 02/06-02/11, IV steroids, nebulizers - supplemental O2, wean as tolerated MSK chest pain: lidocaine patch, prn IV hydromorphone hx embolic CVA: apixaban cardiomyopathy, HTN: continue carvedilol HLD: continue statin tobacco abuse: NRT PATRICIA: nocturnal CPAP COLETTE: lorazepam VTE ppx: apixaban dispo: PT eval In my clinical judgment, the patient requires continued inpatient hospitalization for the following reasons: COPD exacerbation Total time managing care of this patient today: 35 minutes. Quality Stroke Does the patient have a stroke diagnosis?: No Reason for No Anti-thrombotic by Day Two: N/A - Med Ordered VTE Prior VTE?: No VTE Risk Level:: Medical - moderate - high VTE Device Contraindication: N/A - Device Ordered VTE Drug Contraindication: N/A - Med Ordered
[2025-02-08] MEDS: Milk of Magnesia 30 ML ORAL.SUSP PO (17:35)
[2025-02-08] MEDS: 0.9 % Sodium Chloride Flush 3 ML SYRINGE IVFLUSH (20:58)
[2025-02-09] VITALS (7 sets, daily range): BP systolic 111–132; BP diastolic 58–90; PULSE 87–97; RESP 14–20; TEMP 36.1–36.5; O2SAT 93–96
--- NOTE | 2025-02-09 | ECG_ITS ---
Test Reason : chest pain Blood Pressure : */* mmHG Vent. Rate : 84 BPM Atrial Rate : 84 BPM P-R Int : 134 ms QRS Dur : 102 ms QT Int : 398 ms P-R-T Axes : 37 -49 30 degrees QTcB Int : 470 ms Normal sinus rhythm Left anterior fascicular block Septal infarct Abnormal ECG When compared with ECG of 07-Feb-2025 08:42, Premature ventricular complexes is no longer Present Referred By: Mary Patel Electronically Signed By: SABA LIEBERMAN MD
[2025-02-09] MEDS: Nicotine 21 MG PATCH.TD24 TRANSDERMA (08:17)
[2025-02-09] MEDS: Lidocaine 4 % Patch ADH..PATCH 1 PATCH TRANSDERMA (08:17)
[2025-02-09] MEDS: Aspirin Enteric Coated 81 MG TABLET.DR PO (08:18)
[2025-02-09] MEDS: 0.9 % Sodium Chloride Flush 3 ML SYRINGE IVFLUSH (08:19)
--- NOTE | 2025-02-09 12:26 | P.PNIM_ITS ---
Subjective Subjective Date of Service: 02/09/25 Interval History: dyspnea improved, not hypoxic c/o chest pain worse with coughing and palpation Review of Systems Review of Systems: Yes all other systems are reviewed and are negative Physical Exam 2 Vital Signs: Vital Signs: Last Vital Signs Temp 97.1 F 02/09/25 11:27 Pulse 87 02/09/25 11:27 Resp 16 02/09/25 11:27 BP 117/69 02/09/25 11:27 Pulse Ox 95 02/09/25 11:27 O2 Del Method Room Air 02/09/25 11:27 O2 Flow Rate 1 02/07/25 15:40 BMI result Body Mass Index 27.7 Gen: NAD HEENT: sclera anicteric, moist mucus membranes Neck: supple Lungs: soft expiratory wheezing Heart: regular rate and rhythm, no murmurs; sternal tenderness Abd: soft, non-tender, non-distended Ext: no edema Skin: warm/well-perfused Neuro: alert and oriented x3, no focal findings Psych: appropriate affect Objective Data Active Medications Acetaminophen (Acetaminophen 325 Mg Tablet) 650 mg PO Q6H PRN PRN Reason: Pain, Mild 1-3,fever,headache Albuterol/Ipratropium (Albuterol/Iprat 2.5/0.5mg 3 Ml Ampul.Neb) 3 ml INHALE Q4H PRN PRN Reason: Shortness of Breath/Wheezing Last Admin: 02/08/25 13:53 Dose: 3 ml Documented By: JORDANA Apixaban (Apixaban 5 Mg Tablet) 5 mg PO BID [facility] Last Admin: 02/09/25 08:18 Dose: 5 mg Documented By: MARIZOL Aspirin (Aspirin Enteric Coated 81 Mg Tablet.Dr) 81 mg PO DAILY [facility] Last Admin: 02/09/25 08:18 Dose: 81 mg Documented By: MARIZOL Baclofen (Baclofen 10 Mg Tablet) 10 mg PO BEDTIME PRN PRN Reason: MUSCLE SPASMS Budesonide (Budesonide 0.5 Mg/2 Ml Ampul.Neb) 0.5 mg INHALE RBID [facility] Last Admin: 02/09/25 07:53 Dose: 0.5 mg Documented By: PAMELLA Calcium Carbonate (Calcium Carbonate 750 Mg Tab.Chew) 750 mg PO Q4H PRN PRN Reason: Heartburn Carvedilol (Carvedilol 6.25 Mg Tablet) 6.25 mg PO BID [facility]; Protocol Last Admin: 02/09/25 08:18 Dose: 6.25 mg Documented By: MARIZOL Guaifenesin (Guaifenesin 200 Mg/10 Ml 10 Ml Liquid) 10 ml PO Q4H PRN PRN Reason: Cough Last Admin: 02/08/25 20:58 Dose: 10 ml Documented By: HUANG Hydromorphone HCl (Hydromorphone Hcl 1 Mg/Ml Syringe) 0.4 mg IVPUSH Q4H PRN; Protocol PRN Reason: Pain, Severe (Pain Scale 7-10) Last Admin: 02/09/25 08:18 Dose: 0.4 mg Documented By: MARIZOL Lidocaine (Lidocaine 4 % Patch Adh..Patch) 1 patch TRANSDERMA DAILY [facility]; Protocol Last Admin: 02/09/25 08:17 Dose: 1 patch Documented By: MARIZOL Lorazepam (Lorazepam 1 Mg Tablet) 1 mg PO BEDTIME PRN PRN Reason: sleep Last Admin: 02/08/25 22:54 Dose: 1 mg Documented By: HUANG Magnesium Hydroxide (Milk Of Magnesia 30 Ml Oral.Susp) 30 ml PO DAILY PRN PRN Reason: Constipation Last Admin: 02/08/25 17:35 Dose: 30 ml Documented By: EMI Melatonin (Melatonin 3 Mg Tablet) 6 mg PO BEDTIME PRN PRN Reason: Insomnia Last Admin: 02/07/25 21:47 Dose: 6 mg Documented By: LEON Methylprednisolone Sodium Succinate (Methylprednisolone Sod Succ 125 Mg/2 Ml Vial) 40 mg IVPUSH DAILY [facility] Last Admin: 02/09/25 08:18 Dose: 40 mg Documented By: MARIZOL Nicotine (Nicotine 21 Mg Patch.Td24) 21 mg TRANSDERMA DAILY [facility] Last Admin: 02/09/25 08:17 Dose: 21 mg Documented By: MARIZOL Nitroglycerin (Nitroglycerin 0.4 Mg Tab.Subl) 0.4 mg SUBLINGUAL Q5M PRN PRN Reason: Chest Pain Ondansetron HCl (Ondansetron Hcl 4 Mg/2 Ml Vial) 4 mg IVPUSH Q8H PRN PRN Reason: Nausea and Vomiting Oseltamivir Phosphate (Oseltamivir Phosphate 75 Mg Capsule) 75 mg PO Q12H [facility] Stop: 02/11/25 19:59 Last Admin: 02/09/25 08:18 Dose: 75 mg Documented By: MARIZOL Polyethylene Glycol (Polyethylene Glycol 3350 17 Gm Powd.Pack) 17 gm PO DAILY PRN PRN Reason: Constipation Senna (Sennosides 8.6 Mg Tablet) 17.2 mg PO BEDTIME [facility] Last Admin: 02/08/25 20:57 Dose: 17.2 mg Documented By: HUANG Sodium Chloride (0.9 % Sodium Chloride Flush 3 Ml Syringe) 3 ml IVFLUSH QSHIFT [facility] Last Admin: 02/09/25 08:19 Dose: 3 ml Documented By: MARIZOL Labs 02/07/25 05:25 02/07/25 05:25 Microbiology Microbiology Results: Microbiology 02/06/25 20:23 Gram Stain - Final Sputum - Expectorated Sputum Culture - Final 02/06/25 20:37 Blood Culture - Preliminary Blood - Venous No growth after 48 hours. 02/06/25 20:23 Blood Culture - Preliminary Blood - Venous No growth after 48 hours. 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, PATRICIA, BPH, COLETTE presenting with 4d of progressive dyspnea + cough, found to have hypoxia due to influenza acute hypoxic respiratory failure due to influenza A with COPD exacerbation - Tamiflu 02/06-02/11, IV steroids, nebulizers - supplemental O2, wean as tolerated chest pain: suspect musculoskeletal but will check EKG/troponins given risk factors; continue lidocaine patch, prn IV hydromorphone hx embolic CVA: apixaban cardiomyopathy, HTN: continue carvedilol HLD: continue statin tobacco abuse: NRT PATRICIA: nocturnal CPAP COLETTE: lorazepam VTE ppx: apixaban dispo: anticipate home in next 1-2d In my clinical judgment, the patient requires continued inpatient hospitalization for the following reasons: COPD exacerbation Total time managing care of this patient today: 35 minutes. Quality Stroke Does the patient have a stroke diagnosis?: No Reason for No Anti-thrombotic by Day Two: N/A - Med Ordered VTE Prior VTE?: No VTE Risk Level:: Medical - moderate - high VTE Device Contraindication: N/A - Device Ordered VTE Drug Contraindication: N/A - Med Ordered
--- NOTE | 2025-02-09 12:44 | MHC.CM.PN ---
Patient is not yet medically cleared for dc (CHF Exacerbation).
--- NOTE | 2025-02-09 13:06 | P.CDIM_ITS ---
PROVIDER RESPONSE TEXT: To clarify, the appropriate diagnosis supported by the clinical indicators: Acute QUERY TEXT: PHYSICIAN'S DOCUMENTATION REQUEST Date of Query: 02/08/2025 07:46 AM EST Patient Name: Daniel Agarwal Admit Date: 02/07/2025 Dear Mary Patel MD, A review of the medical record indicates additional documentation may be needed. Please review below and update the documentation accordingly. Clinical Indicators: H&P 02/06/25- Patient admitted for acute hypoxic respiratory failure secondary to Influenza A, Bronchitis with active active history of smoking and known COPD. COPD/Bronchitis/cough. Nebs prn, Methylprednisolone, continue pulse ox, Antitussives, IVF, Tamiflu. Clarify which of the following accurately represents the acuity or further specifics to the noted Bronchitis: Possible options might include: Acute Chronic Bronchiectasis Emphysema Other (explain) Clinically unable to determine (explain) Thank you, Keke Malave, CCS, CDIS Use of terms such as suspected, likely, concern for, or probable (associated with a specific diagnosis that is being evaluated, monitored, or treated as if it exists) are acceptable and can be coded in the inpatient setting, when documented at the time of discharge. Please use your independent medical judgment in providing your response. THIS QUERY IS PART OF THE PERMANENT MEDICAL RECORD
[2025-02-09 13:12] LABS: Troponin-I High Sensitivity 11.2 ng/L (<3.5-35.0)
--- NOTE | 2025-02-09 14:53 | PM.DS ---
DS: Providers Provider Date of Service: 02/09/25 Date of admission: 02/06/25 19:50 Date of discharge: 02/09/25 Primary care physician: Sabina Colindres MD DS: Diagnosis Discharge Diagnosis (1) Influenza A: Status: Acute (2) COPD with exacerbation: Status: Acute (3) Acute hypoxic respiratory failure: Status: Acute (4) Chest pain: Status: Acute DS: Summary Hospital Course Hospital Course: from H+P by admitter [facility] 02/06/25: Patient is A 54-year-old with past medical history CAD, PR, hypertension, COPD/ asthma, hyperlipidemia, TIA, PATRICIA, CM/NSVT/ AICD in place , COLETTE, BPH presents with 4 days of progressive shortness of breath and productive cough without chest pain. Patient denies any recent travel or exposure to anybody with upper respiratory illness. Patient found to be positive for influenza A. Patient is an active smoker, 1PPD and also vapes nicotine. Patient experienced tachypnea but no fever or leukocytosis. BP borderline in the ED. Patient has required oxygen via nasal cannula but does not use oxygen at home. Pt is supposed to use CPAP at home for PATRICIA but is not always complaint. 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 Workup in the ED included Left lower extremity Doppler negative for DVT. Patient is on Eliquis. CTA negative for PE, noted for CM Evidence of bronchitis noted on CXR with no infiltrates. EKG with prolonged QTC 490. LA, VBG pending. Pt being admitted for acute hypoxic respiratory failure, Influenza A and bronchitis with need for close hmeodynamic monitoring. 2200 nursing notified this personal lines underwriter that pt is requesting dilaudid IV every 4 hours for abdominal pain related to coughing. Pt received 0.5 IV dilaudid from ED provider. Pt does not have any narcotics listed on home list. Pt prescribed toradol IV X1 (one time only) noting pt is on eliquis. Tylenol also available and splinting pillow provided. Antitussives also ordered. Pt is not able to take po oxycodone or tramadol due to hx of reaction (itching, rash). Prn IV dilaudid for next 12 hours only, 0.5 Q4PRN. 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 Treated with Tamiflu and IV steroids and nebulized bronchodilators. Improved to the point he was weaned off O2. Had chest pain suspected to be musculoskeletal from coughing. Discharged on Tamiflu, steroid taper, lidocaine patch, nicotine patch, and albuterol nebulization solution with nebulizer. Time Attestation Discharge Coordination Time (in mins): 40 Quality: Safe Use of Opioids Does Pt have an Active Cancer Diagnosis on the Problem List?: No Quality: Stroke Does the patient have a stroke diagnosis?: No Physical Exam Vital Signs: Vital Signs: Last Vital Signs Temp 97.1 F 02/09/25 11:27 Pulse 87 02/09/25 11:27 Resp 16 02/09/25 11:27 BP 117/69 02/09/25 11:27 Pulse Ox 95 02/09/25 11:27 O2 Del Method Room Air 02/09/25 11:27 O2 Flow Rate 1 02/07/25 15:40 BMI result Body Mass Index 27.7 Gen: NAD HEENT: sclera anicteric, moist mucus membranes Neck: supple Lungs: soft expiratory wheezing Heart: regular rate and rhythm, no murmurs; sternal tenderness Abd: soft, non-tender, non-distended Ext: no edema Skin: warm/well-perfused Neuro: alert and oriented x3, no focal findings Psych: appropriate affect DS: Data Data Completed and Pending Completed studies during hospitalization [Text1]: Laboratory Results WBC 6.6 X10*3/uL (4.8-10.8) 02/07/25 05:25 RBC 4.49 X10*6/uL (4.60-5.80) L 02/07/25 05:25 Hgb 14.1 g/dl (14.0-18.0) 02/07/25 05:25 Hct 40.3 % (42.0-52.0) L 02/07/25 05:25 MCV 89.8 fL (80.0-98.0) 02/07/25 05:25 MCH 31.4 pg (27.0-33.0) 02/07/25 05:25 MCHC 35.0 g/dl (31.0-36.0) 02/07/25 05:25 RDW 12.0 % (11.0-16.0) 02/07/25 05:25 Plt Count 161 X10*3/uL (160-400) 02/07/25 05:25 MPV 10.3 fL (9.4-12.4) 02/07/25 05:25 Immature Gran % (Auto) 0.3 % (0.0-0.4) 02/07/25 05:25 Neut % (Auto) 83.2 % (45-73) H 02/07/25 05:25 Lymph % (Auto) 14.5 % (20-40) L 02/07/25 05:25 [place] % (Auto) 1.8 % (2-11) L 02/07/25 05:25 Eos % (Auto) 0.0 % (0-4) 02/07/25 05:25 Baso % (Auto) 0.2 % (0-2) 02/07/25 05:25 Lymph # (Auto) 1.0 X10*3/uL (1.2-4.9) L 02/07/25 05:25 [place] # (Auto) 0.1 X10*3/uL (0.1-1.2) 02/07/25 05:25 Eos # (Auto) 0.0 X10*3/uL (0.0-0.4) 02/07/25 05:25 Baso # (Auto) 0.0 X10*3/uL (0.0-0.2) 02/07/25 05:25 Abs Immat Gran (auto) 0.02 X10*3/uL (0.00-0.03) 02/07/25 05:25 Absolute Neuts (auto) 5.5 x10*3/uL (2.0-8.3) 02/07/25 05:25 Absolute Nucleated RBC 0.000 X10*3/uL (0.0-0.012) 02/07/25 05:25 Nucleated RBC % (auto) 0.0 /100WBC (0.0-0.2) 02/07/25 05:25 Smear Tech's Comments VERIFIED 02/07/25 05:25 D-Dimer High Sensitivty < 150 NG/ML 02/06/25 18:24 VBG pH 7.43 (7.32-7.43) 02/06/25 20:42 VBG pCO2 39 mmHg 02/06/25 20:42 VBG pO2 59 mmHg 02/06/25 20:42 VBG HCO3 26 mmol/L (22-26) 02/06/25 20:42 VBG O2 Saturation 77.0 % 02/06/25 20:42 VBG Base Excess 2.3 mmol/L 02/06/25 20:42 Sodium 138 mmol/L (135-145) 02/07/25 05:25 Potassium 4.4 mmol/L (3.3-5.1) 02/07/25 05:25 Chloride 109 mmol/L (96-108) H 02/07/25 05:25 Carbon Dioxide 21 mmol/L (22-29) L 02/07/25 05:25 Anion Gap 12 (12-20) 02/07/25 05:25 BUN 14 mg/dL (9-16) 02/07/25 05:25 Creatinine 0.70 mg/dL (0.5-1.4) 02/07/25 05:25 Estim Creat Clear Calc 137.0 02/07/25 05:25 Estimated GFR > 60 02/07/25 05:25 Random Glucose 196 mg/dL (60-115) H 02/07/25 05:25 Lactic Acid 2.7 mmol/L (0.5-2.0) H* 02/07/25 05:25 Lactic Acid F/U @ 2Hr 2.3 mmol/L (0.5-2.0) H* 02/06/25 23:10 Lactic Acid F/U @ 4Hr 2.4 mmol/L (0.5-2.0) H* 02/07/25 01:43 Calcium 8.4 mg/dL (8.4-10.2) 02/07/25 05:25 Magnesium 2.1 mg/dL (1.6-2.6) 02/06/25 14:36 Total Bilirubin 0.5 mg/dL (0.0-1.0) 02/07/25 05:25 Direct Bilirubin 0.2 mg/dL (0.0-0.5) 02/06/25 14:36 AST 14 U/L (5-37) 02/07/25 05:25 ALT 15 U/L (0-40) 02/07/25 05:25 Alkaline Phosphatase 56 U/L (39-117) 02/07/25 05:25 Troponin I High Sens 11.2 ng/L (<3.5-35.0) 02/09/25 12:37 NT-Pro-B Natriuret Pep 463.1 pg/mL (<300) H 02/06/25 14:36 Total Protein 5.7 g/dL (6.5-8.0) L 02/07/25 05:25 Albumin 3.4 g/dL (3.5-5.0) L 02/07/25 05:25 TSH 0.77 uIU/mL (0.32-4.0) 02/06/25 14:36 Urine Color Yellow 02/06/25 20:19 Urine Appearance Clear 02/06/25 20:19 Urine pH 6.5 (5.0-9.0) 02/06/25 20:19 Ur Specific [place] 1.015 (1.005-1.025) 02/06/25 20:19 Urine Protein Negative mg/dL (Neg-Trace) 02/06/25 20:19 Urine Glucose (UA) Negative mg/dL (Negative) 02/06/25 20:19 Urine Ketones Negative mg/dL (Negative) 02/06/25 20:19 Urine Blood Negative (Negative) 02/06/25 20:19 Urine Nitrite Negative (Negative) 02/06/25 20:19 Ur Leukocyte Esterase Negative (Negative) 02/06/25 20:19 Influenza Type A (PCR) POSITIVE (Negative) A 02/06/25 14:36 Influenza Type B (PCR) NEGATIVE (Negative) 02/06/25 14:36 RSV RNA Qual (PCR) NEGATIVE (Negative) 02/06/25 14:36 SARS-CoV-2 RNA (RT-PCR) NEGATIVE (Negative) 02/06/25 14:36 Discharge Plan Discharge Anticipated Discharge Date/Time: 02/09/25 12:20 Patient Disposition: Home, Self-Care Discharge Diagnosis: flu, COPD exacerbation, hypoxia Referrals: Po,Sabina Sanders MD [Primary Care Provider, Internal Medicine] - 1 Week Discharge Medications: New albuterol sulfate 2.5 mg /3 mL (0.083 %) solution for nebulization 2.5 mg inhalation Q4H PRN (Reason: shortness of breath or wheezing) Qty: 75 0RF lidocaine [Lidocaine Pain Relief] 4 % Adhesive Patch,Medicated 1 patch transdermal DAILY Qty: 12 0RF Protocol: Apply to: Apply to: sternum oseltamivir [Tamiflu] 75 mg Capsule 75 mg PO Q12H Qty: 5 0RF nicotine 21 mg/24 hr Patch 24 Hour 21 mg transdermal DAILY Qty: 30 0RF prednisone 10 mg tablet 10 mg PO DIRECTED Qty: 20 0RF Rx Instructions: 40 mg daily x 2 days, then 30 mg daily x 2 days, then 20 mg daily x 2 days, then 10 mg daily x 2 days Continued Eliquis 5 mg tablet 5 mg PO BID Qty: 180 3RF carvedilol 6.25 mg tablet 6.25 mg PO BID 30 Days Qty: 60 5RF Rx Instructions: must administer with a meal/food Dose increased albuterol sulfate [Ventolin HFA] 90 mcg/actuation HFA aerosol inhaler 2 puff inhalation Q4-6H PRN (Reason: Wheezing) Qty: 8.5 0RF lorazepam 1 mg tablet 1 mg PO BEDTIME PRN (Reason: anxiety) Qty: 30 0RF baclofen 10 mg tablet 10 mg PO BEDTIME PRN (Reason: MUSCLE SPASMS) aspirin [Adult Aspirin Regimen] 81 mg tablet,delayed release (DR/EC) 81 mg PO DAILY nitroglycerin 0.4 mg tablet, sublingual 0.4 mg sublingual Q5M PRN (Reason: chest pain) Qty: 20 0RF Rx Instructions: do not exceed 3 doses per episode Diet: Advance to usual diet Activity on Discharge: As tolerated Stand Alone Forms: Patient Portal Discharge page Print Language: Mexican Care Plan Goals: recover from flu Health Concerns: flu, COPD exacerbation, hypoxia Plan of Treatment: prednisone 10 mg tabs, taper as follows: 40 mg (4 tabs) daily x 2 days, then 30 mg (3 tabs) daily x 2 days, then 20 mg (2 tabs) daily x 2 days, then 10 mg (1 tab) daily x 2 days Tamiflu 75 mg twice daily for 5 more doses albuterol nebulized or inhaled as needed for shortness of breath or wheeze quit smoking; use nicotine patch to help take lidocaine patch for chest pain from coughing Please follow up with your primary care doctor within 1 week. Return to the hospital if you experience recurrent or worsening symptoms. Assessment: See Discharge Summary.
[2025-02-09 15:48] LABS: Troponin-I High Sensitivity 9.6 ng/L (<3.5-35.0)
--- NOTE | 2025-02-09 16:01 | MHC.CM.PN ---
Patient has been medically cleared for dc to home today, self care.
== END 2025-02-09 16:37 | disposition home or self-care (01) | DRG 193 ==
LOC: HO.ED 16:51 → HO.EDOVER 19:58 → HO.IMC 02-07 00:21
PROVIDERS: Physician Assistant; Registered Nurse Emergency; Admitting Provider Nurse Practitioner Family; Emergency Provider Emergency Medicine Emergency Medical Services; PCP Internal Medicine; Visit Provider Family Medicine
DX: J10.1 Influenza due to other identified influenza virus with other respiratory manifestations (principal); J96.01 Acute respiratory failure with hypoxia; J44.0 Chronic obstructive pulmonary disease with (acute) lower respiratory infection; J44.1 Chronic obstructive pulmonary disease with (acute) exacerbation; J20.9 Acute bronchitis, unspecified; I25.10 Atherosclerotic heart disease of native coronary artery without angina pectoris; I10 Essential (primary) hypertension; I25.2 Old myocardial infarction; Z95.810 Presence of automatic (implantable) cardiac defibrillator; F17.210 Nicotine dependence, cigarettes, uncomplicated; Z71.6 Tobacco abuse counseling; G47.33 Obstructive sleep apnea (adult) (pediatric); N40.0 Benign prostatic hyperplasia without lower urinary tract symptoms; F41.1 Generalized anxiety disorder; Z20.822 Contact with and (suspected) exposure to COVID-19; Z86.74 Personal history of sudden cardiac arrest; Z86.73 Personal history of transient ischemic attack (TIA), and cerebral infarction without residual deficits; Z79.01 Long term (current) use of anticoagulants; Z79.82 Long term (current) use of aspirin; Z79.899 Other long term (current) drug therapy
CPT/HCPCS: 36415; 71046; 71275; 80048; 80053; 80076; 81003; 82803; 83605; 83735; 83880; 84443; 84484; 85025; 85379; 87040; 87070; 87205; 87637; 93005; 93971; 94640; 94660; 97161; 99285; J0131; J1171; J1885; J2919; J7120; Q9967

== ENCOUNTER → 2025-02-06 14:25 | Outpatient (BNV) | payer MEDICARE, MEDICAID, SELFPAY | PROVIDERS: Emergency Provider Emergency Medicine Emergency Medical Services; PCP Internal Medicine; Visit Provider Radiology Diagnostic Radiology | DX: I51.7 Cardiomegaly (principal); I25.10 Atherosclerotic heart disease of native coronary artery without angina pectoris; M79.662 Pain in left lower leg; R22.42 Localized swelling, mass and lump, left lower limb; R05.9 Cough, unspecified | CPT/HCPCS: 71046; 71275; 93971 ==

== ENCOUNTER → 2025-02-06 14:26 | Outpatient (BNV) | payer MEDICARE, MEDICAID, SELFPAY | PROVIDERS: Admitting Provider Nurse Practitioner Family; Emergency Provider Emergency Medicine Emergency Medical Services; PCP Internal Medicine; Visit Provider Internal Medicine Cardiovascular Disease | DX: I44.4 Left anterior fascicular block (principal) | CPT/HCPCS: 93010 ==

== ENCOUNTER 2025-02-06 19:50 | Outpatient (BNV) | payer MEDICARE, MEDICAID, SELFPAY | END 2025-02-07 08:00 | PROVIDERS: Admitting Provider Nurse Practitioner Family; Emergency Provider Emergency Medicine Emergency Medical Services; PCP Internal Medicine; Visit Provider Internal Medicine Cardiovascular Disease | DX: R94.31 Abnormal electrocardiogram [ECG] [EKG] (principal); Z13.6 Encounter for screening for cardiovascular disorders | CPT/HCPCS: 93010 ==

== ENCOUNTER 2025-02-06 19:50 | Outpatient (BNV) | payer MEDICARE, MEDICAID, SELFPAY | END 2025-02-09 12:48 | PROVIDERS: Admitting Provider Nurse Practitioner Family; Emergency Provider Emergency Medicine Emergency Medical Services; PCP Internal Medicine; Visit Provider Internal Medicine Cardiovascular Disease | DX: I44.4 Left anterior fascicular block (principal) | CPT/HCPCS: 93010 ==

== ENCOUNTER → 2025-02-06 19:50 | Outpatient (BNV) | payer MEDICARE, MEDICAID, SELFPAY | PROVIDERS: Admitting Provider Nurse Practitioner Family; Emergency Provider Emergency Medicine Emergency Medical Services; PCP Internal Medicine; Visit Provider Nurse Practitioner Family | DX: J96.01 Acute respiratory failure with hypoxia (principal); J10.1 Influenza due to other identified influenza virus with other respiratory manifestations | CPT/HCPCS: 99223; 99232 ==

== ENCOUNTER → 2025-02-21 17:17 | Outpatient (BNV) | payer MEDICARE, MEDICAID, SELFPAY | PROVIDERS: PCP Internal Medicine; Visit Provider Internal Medicine | DX: Z95.810 Presence of automatic (implantable) cardiac defibrillator (principal); I50.9 Heart failure, unspecified | CPT/HCPCS: 93297 ==